=== PATIENT | female | born 1945 | race Two or more races ===

== ENCOUNTER 2020-09-23 20:08 | Inpatient (IN) | payer MEDICARE, OTHER ==
[~2020-09-23] VITALS: Ht 152.4 cm; Wt 43.5 kg
[2020-09-23] MEDS ORDERED: NEPHROVITE1 TAB ORAL (20:19)
[2020-09-23] MEDS ORDERED: CITALOPRAM HBR20 M1 ORAL (20:19)
[2020-09-23] MEDS ORDERED: ASCORBIC ACID500 MG ORAL (20:19)
[2020-09-23] MEDS ORDERED: GABAPENTIN100 MG ORAL (20:19)
[2020-09-23] MEDS ORDERED: SENSIPAR30 MG ORAL (20:19)
[2020-09-23] MEDS ORDERED: ATORVASTATIN CA40 MG ORAL (20:19)
[2020-09-23] MEDS ORDERED: PANTOPRAZOLE SO40 MG ORAL (20:19)
[2020-09-23] MEDS ORDERED: RENVELA2.4 GM ORAL (20:19)
[2020-09-23] MEDS ORDERED: LANTUS SOL100 UNIT/1 SUBQ (20:19)
--- NOTE | 2020-09-23 20:25 | NUR ---
ED Nurse Note: Recieved pt BIBA from SNF with c/o AMS, pt is in bed eyes closed, non-verbal and responds to painful stimuli only, pt is dialysis pt and had full treatment today, shunt in upper left arm intact and patent, pt immediately placed on cardiac monitoring, has patent IV line, labs drawn, will continue to closely monitor and resume care as ordered.
--- NOTE | 2020-09-23 20:46 | Emergency Room Report ---
History of Present Illness General Chief Complaint: Altered Mental Status Source: Medical Record Present Illness HPI 75-year-old female history of end-stage renal disease on dialysis Wednesday, congestive heart failure, here with altered mental status. The patient is normally alert and oriented x2 at her baseline but according group home today after dialysis. More lethargic and confused and is now nonverbal. She is unable to participate in review systems secondary to her altered mental status. 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 COVID-19 Screening: Negative COVID-19 COVID-19 Testing Source: [facility] Patient History Now: No Nursing Documentation-PMH Hx Cardiac Problems: Yes - dialysis MWF, cardiomegaly, cardiomyopathy, heart failure, ESRD Hx Hypertension: Yes - hyperlipidemia, hypercalcemia Hx Diabetes: Yes Hx Gastrointestinal Problems: Yes - GERD, dysphagia History Of Psychiatric Problem: Yes - depression Review of Systems All Other Systems: negative except mentioned in HPI Physical Exam Vital Signs Date Time Temp Pulse Resp B/P (MAP) Pulse Ox O2 Delivery O2 Flow Rate FiO2 09/23/20 20:08 97.2 101 22 137/60 (85) 98 Nasal Cannula 2.0 Sp02 EP Interpretation: reviewed, normal General Appearance: non-toxic, other - Appears lethargic, altered. Eyes are open and she is tracking objects but is nonverbal Head: normocephalic, atraumatic Eyes: bilateral eye normal inspection, bilateral eye PERRL ENT: hearing grossly normal, normal pharynx, no angioedema, normal voice Neck: full range of motion, supple/symm/no masses Respiratory: chest non-tender, lungs clear, normal breath sounds, speaking full sentences Cardiovascular #1: regular rate, rhythm, no edema Cardiovascular #2: 2+ carotid (R), 2+ carotid (L), 2+ radial (R), 2+ radial (L), 2+ dorsalis pedis (R), 2+ dorsalis pedis (L) Gastrointestinal: normal bowel sounds, non tender, soft, non-distended, no guarding, no rebound Rectal: deferred Genitourinary: normal inspection, no CVA tenderness Musculoskeletal: back normal, normal range of motion, gait/station normal, non- tender Neurologic: other - She is awake but nonverbal Psychiatric: judgement/insight normal, memory normal, mood/affect normal, no suicidal/homicidal ideation Reflexes: 3+ bicep (R), 3+ bicep (L), 3+ tricep (R), 3+ tricep (L), 3+ knee (R), 3+ knee (L) Lymphatic: no adenopathy Medical Decision Making Diagnostic Impression: Primary Impression: Altered mental status Additional Impressions: Pneumonia ESRD (end stage renal disease) ER Course CT head: No acute intracranial process EKG: NSR, no ischemia, intervals WNL. No ectopy Rhythm strip: patient monitored for arrhythmias - no malignant dysrhythmias, runs of PVCs, nor pauses noted Chest x-ray: He is a consolidation in the right lower lobe. Mild cardiomegaly. No pulmonary vascular congestion. No effusions. No bony abnormalities. No free air under the diaphragm Laboratory Tests Test 09/23/20 20:25 White Blood Count 12.7 K/UL (4.8-10.8) H Red Blood Count 2.62 M/UL (4.20-5.40) L Hemoglobin 8.6 G/DL (12.0-16.0) L Hematocrit 27.6 % (37.0-47.0) L Mean Corpuscular Volume 105 FL (80-99) H Mean Corpuscular Hemoglobin 33.0 PG (27.0-31.0) H Mean Corpuscular Hemoglobin Concent 31.3 G/DL (32.0-36.0) L Red Cell Distribution Width 17.6 % (11.6-14.8) H Platelet Count 265 K/UL (150-450) Mean Platelet Volume 6.4 FL (6.5-10.1) L Neutrophils (%) (Auto) 75.6 % (45.0-75.0) H Lymphocytes (%) (Auto) 6.4 % (20.0-45.0) L Monocytes (%) (Auto) 16.6 % (1.0-10.0) H Eosinophils (%) (Auto) 0.2 % (0.0-3.0) Basophils (%) (Auto) 1.3 % (0.0-2.0) Sodium Level 140 MMOL/L (136-145) Potassium Level 3.8 MMOL/L (3.5-5.1) Chloride Level 103 MMOL/L (98-107) Carbon Dioxide Level 31 MMOL/L (21-32) Anion Gap 6 mmol/L (5-15) Blood Urea Nitrogen 25 mg/dL (7-18) H Creatinine 3.5 MG/DL (0.55-1.30) H Estimated Glomerular Filtration Rate 12.7 mL/min (>60) Glucose Level 189 MG/DL (74-106) H Lactic Acid Level 1.60 mmol/L (0.4-2.0) Calcium Level 7.7 MG/DL (8.5-10.1) L Magnesium Level 2.1 MG/DL (1.8-2.4) Total Bilirubin 0.5 MG/DL (0.2-1.0) Aspartate Amino Transferase (AST) 16 U/L (15-37) Alanine Aminotransferase (ALT) 13 U/L (12-78) Alkaline Phosphatase 153 U/L (46-116) H Total Creatine Kinase 28 U/L (26-308) Creatine Kinase MB 1.7 NG/ML (0.0-3.6) Creatine Kinase MB Relative Index 6.0 Troponin I 0.042 ng/mL (0.000-0.056) Total Protein 6.7 G/DL (6.4-8.2) Albumin 2.3 G/DL (3.4-5.0) L Globulin 4.4 g/dL Albumin/Globulin Ratio 0.5 (1.0-2.7) L 75-year-old female here with altered mental status. The patient was nonverbal and appeared cachectic and fatigued in the emergency department. She was awake and tracking objects but was nonverbal. Nursing reports she says that the patient is normally has alert orientation x2. Patient was ANO x0. She had elevated white blood cell count of greater than 12. Troponin within normal limits. CBC and CMP was largely otherwise unremarkable and only showed the patient's baseline end-stage renal disease. CT head was unremarkable. Chest x- ray showed evidence of right lower lobe pneumonia. She received vancomycin and Zosyn for treatment of healthcare acquired pneumonia. Remained hemodynamically stable throughout her stay in the emergency department. Admitted to telemetry. Last Vital Signs Date Time Temp Pulse Resp B/P (MAP) Pulse Ox O2 Delivery O2 Flow Rate FiO2 09/23/20 20:08 97.2 101 22 137/60 (85) 98 Nasal Cannula 2.0 Alex Ferris M.D. Sep 23, 2020 20:46
[2020-09-23 20:56] LABS: BASOPHILS % (AUTO) 1.3 % (0.0-2.0); EOSINOPHILS % (AUTO) 0.2 % (0.0-3.0); HEMATOCRIT 27.6 % (37.0-47.0); HEMOGLOBIN 8.6 G/DL (12.0-16.0); LYMPHOCYTES % (AUTO) 6.4 % (20.0-45.0); MEAN CORPUSCULAR VOLUME 105 FL (80-99); MONOCYTES % (AUTO) 16.6 % (1.0-10.0); NEUTROPHILS % (AUTO) 75.6 % (45.0-75.0); PLATELET COUNT 265 K/UL (150-450); RED BLOOD COUNT 2.62 M/UL (4.20-5.40); RED CELL DISTRIBUTION WIDTH 17.6 % (11.6-14.8); WHITE BLOOD COUNT 12.7 K/UL (4.8-10.8)
[2020-09-23 21:00] VITALS: BP 148/52
[2020-09-23 21:17] LABS: CALCIUM 7.7 MG/DL (8.5-10.1); CREATININE 3.5 MG/DL (0.55-1.30); POTASSIUM 3.8 MMOL/L (3.5-5.1)
--- NOTE | 2020-09-23 21:17 | Diagnostic Imaging Report ---
EXAM: CT Head Without Intravenous Contrast CLINICAL HISTORY: AMS TECHNIQUE: Axial computed tomography images of the head/brain without intravenous contrast. CTDI is 53.4 mGy and DLP is 1018.8 mGy-cm. One or more of the following dose reduction techniques were used: automated exposure control, adjustment of the mA and/or kV according to patient size, use of iterative reconstruction technique. COMPARISON: No relevant prior studies available. FINDINGS: Brain: No hemorrhage. No edema. Ventricles: No ventriculomegaly. Bones/joints: No acute fracture. Soft tissues: Unremarkable. Cataract surgery Sinuses: No acute sinusitis. Mastoid air cells: Right mastoid opacifications. Debris in the external auditory canals. IMPRESSION: No acute intracranial process.
[2020-09-23 21:32] LABS: ALBUMIN 2.3 G/DL (3.4-5.0); ALBUMIN/GLOBULIN RATIO 0.5 (1.0-2.7); BILIRUBIN,TOTAL 0.5 MG/DL (0.2-1.0); CKMB 1.7 NG/ML (0.0-3.6)
--- NOTE | 2020-09-23 22:00 | NUR ---
ED Nurse Note: Pt continues to rest quietly, pt is diapered and arrived with very large loose stool and has had 3 large loose, watery stools since, pt cleaned and given complete linen change, v/s stable, no sob or labored breathing, recieving more response by eyes opening and pt mumbling words in burkinan, MD aware, will continue to closely monitor.
[2020-09-23] MEDS ORDERED: Vancomycin 1 GM in NS 275 ML IVPB ONE (22:30)
[2020-09-23] MEDS ORDERED: Piperacillin/Tazobactam 3.375 GM in NS 110 ML IVPB ONE (22:30)
[2020-09-24] VITALS (10 sets, daily range): BP systolic 129–154; BP diastolic 52–76
--- NOTE | 2020-09-24 00:05 | NUR ---
ED Nurse Note: Pt had loose, foul odor stool again, specimen sent to lb, pt also has elevated temp, informed meds given as ordered, pt to be admitted, daughter at bedside and aware, all swabs collected and ssent, also shown to vesicle like lesions on pt abdomen, will continue to monitor and prepaer for admission.
[2020-09-24] MEDS ORDERED: Acetaminophen 650 MG SUPP RECTAL ONE (00:45)
--- NOTE | 2020-09-24 01:30 | NUR ---
ED Nurse Note: Assumed care of pt at this time. She is resting in bed. Linen change done by welding robot operator and tech. Patient is clean/dry. She is breathing normal and unlabored at this time on 2L oxygen via NC. handle sewer spoke with patient's family and they are aware of care plan at this time. Pt connected to stenciling machine tender; will continue to monitor pt status. Vital signs are stable.
--- NOTE | 2020-09-24 01:35 | Emergency Room Report ---
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 COVID-19 Screening: Negative COVID-19 COVID-19 Testing Source: [facility] Patient History Now: No Nursing Documentation-PMH Hx Cardiac Problems: Yes - dialysis MWF, cardiomegaly, cardiomyopathy, heart failure, ESRD Hx Hypertension: Yes - hyperlipidemia, hypercalcemia Hx Diabetes: Yes Hx Gastrointestinal Problems: Yes - GERD, dysphagia History Of Psychiatric Problem: Yes - depression Physical Exam Vital Signs Date Time Temp Pulse Resp B/P (MAP) Pulse Ox O2 Delivery O2 Flow Rate FiO2 09/23/20 20:08 97.2 101 22 137/60 (85) 98 Nasal Cannula 2.0 Medical Decision Making Diagnostic Impression: Primary Impression: Altered mental status Additional Impressions: ESRD (end stage renal disease) Pneumonia Diarrhea ER Course Assumed care of the patient from the previous provider at approximately 0130. Please refer to initial note for full history and physical exam. Briefly, 75-year-old female history of ESRD on dialysis presenting for altered mental status and right lower lobe pneumonia. Mentation improving. Admitted to Dr. Swanson by the previous ER provider. Patient having multiple episodes of watery diarrhea. C. difficile culture sent. We will place on contact precautions. She was found to be febrile and Tylenol was given. She has already received antibiotics. Last Vital Signs Date Time Temp Pulse Resp B/P (MAP) Pulse Ox O2 Delivery O2 Flow Rate FiO2 09/24/20 00:15 101.5 89 17 144/58 99 Nasal Cannula 2.0 Disposition: ADMITTED INPATIENT Condition: Serious Referrals: NON PHYSICIAN (PCP) Masoud Goodrich MD Sep 24, 2020 01:35
--- NOTE | 2020-09-24 02:05 | NUR ---
ED Nurse Note: Reassessed temperature at this time. Current temp is 99.6F.
--- NOTE | 2020-09-24 02:30 | NUR ---
ED Nurse Note: messaged dr. aguillon for admitting orders due to patient being boarded here in the emergency room.
--- NOTE | 2020-09-24 03:30 | NUR ---
ED Nurse Note: Pt is sleeping soundly at this time. Breathing is normal and unlabored. No change in condition. VSS.
--- NOTE | 2020-09-24 04:16 | NUR ---
ED Nurse Note: messaged dr. aguillon 2nd time for admitting orders .
--- NOTE | 2020-09-24 05:40 | NUR ---
ED Nurse Note: Patient had loose bowel movement. She was cleaned and her linen changed. Skin is now clean/dry/intact. Pt family member is bedside. Pt is in no acute distress, breathing is normal and unlabored. Patient is awake and alert. VSS.
--- NOTE | 2020-09-24 07:10 | NUR ---
ED Nurse Note: Report given to Gia ESTEVEZ. Plan of care endorsed. Pt in stable condition.
--- NOTE | 2020-09-24 08:15 | NUR ---
ED Nurse Note: Pt had 1 BM, loose stool, pt was cleaned and diaper changed.
--- NOTE | 2020-09-24 08:26 | NUR ---
ED Nurse Note: Pt on bed, awake and alert x 2, daughter at bedside. Pt warm to touch; rechecked temp with 100.1F; tylenol 650mg TAB given. Pt's VSS, breathing even and unlabored.
--- NOTE | 2020-09-24 08:29 | NUR ---
ED Nurse Note: Report given to ZENAIDA Zavala in Telemetry Unit for transfer of care.
--- NOTE | 2020-09-24 08:35 | NUR ---
ED Nurse Note: Pt was transferred to Telemetry Unit under the care of Dr. Swanson. report given to Cecy ESTEVEZ in Tele Unit. Pt was transferred on stable condition, no belongings updated on paper list; family aware of pt transfer.
--- NOTE | 2020-09-24 08:45 | NUR ---
NURSE NOTES: Patient was admitted to [facility] -220-1 via striker bed, patient on 2L of oxygen via nasal cannula, Vitals: BP: 137/60, spO2: 100%, pulse rate: 86, temp: 97.7. Patient alert and oriented x2, responsive to verbal and tactile stimuli, able to follow commands, noted sacral pressure ulcer will take pictures later. Patient has c. diff and will contact Dr. Swanson shortly.
--- NOTE | 2020-09-24 08:48 | NUR ---
NURSE NOTES: Notified Dr. Swanson regarding admission orders and awaiting response/callback.
[2020-09-24] MEDS: Renvela 2400 mg pkt ORAL SCH ×2 (12:58→17:20)
[2020-09-24] MEDS: Vancomycin oral 125mg/2.5ml ORAL SCH ×3 (13:02→21:31)
[2020-09-24] MEDS: cefTRIAXone 1 GM in D5W 55 ML IVPB SCH (13:03)
--- NOTE | 2020-09-24 13:30 | Consultation ---
DATE OF CONSULTATION: 09/24/2020 INFECTIOUS DISEASES CONSULTATION CONSULTING PHYSICIAN: Erika Stiles MD. REFERRING PHYSICIAN: Cesar Swanson MD. REASON FOR CONSULTATION: Pneumonia and C. difficile colitis. HISTORY OF PRESENTING ILLNESS: This is a 75-year-old lady with history of diabetes, hypertension, hyperlipidemia, GERD, depression, cardiomyopathy, congestive heart failure, renal failure on dialysis who comes in with altered mental status. She was found to have pneumonia and C. difficile colitis. An Infectious Diseases consultation has been obtained for antibiotics. PAST MEDICAL HISTORY: 1. History of diabetes. 2. Hypertension. 3. Hyperlipidemia. 4. Renal failure on dialysis. 5. Cardiomyopathy. 6. Congestive heart failure. SOCIAL HISTORY: Unknown. FAMILY HISTORY: Unknown. REVIEW OF SYSTEMS: Unable to obtain currently. MEDICATIONS: As an inpatient, she is on vitamin , folic acid, Protonix, atorvastatin, ascorbic acid, Renvela, gabapentin, p.o. vancomycin, Tylenol. ALLERGIES: No known drug allergies. PHYSICAL EXAMINATION: VITAL SIGNS: Temperature 97.7, T-max of 101.5, pulse of 85, respiratory rate 20, blood pressure 137/60, O2 saturation of 100% on 2 liters of nasal cannula. HEENT: Pupils equally reactive to light and accommodation. Mouth appears clean without thrush. NECK: Supple. No adenopathy. No JVD. CARDIOVASCULAR: Regular rate and rhythm. No murmurs. LUNGS: Clear to auscultation bilaterally. No crackles. No wheezes. ABDOMEN: Soft and nontender. No organomegaly. EXTREMITIES: No cyanosis, no clubbing, no edema. LABORATORY AND DIAGNOSTIC DATA: White count 12.7, hemoglobin 8.6, hematocrit 27.6, MCV 105, platelet count of 265 with neutrophils of 75%. Sodium 140, potassium 3.8, chloride 103, bicarb 31, BUN 25, creatinine 3.5, glucose 189, calcium 7.7, magnesium 2.1. Total bilirubin 0.5, AST 16, ALT 13, alkaline phosphatase 153. CK of 28, CK-MB 1.7. Troponin 0.04. Total protein 6.7, albumin 2.3. Stool for C. difficile colitis is positive. COVID-[address] head showing no acute intracranial process. Chest x-ray showing consolidation in the right lower lobe. ASSESSMENT: This is a 75-year-old lady with history of diabetes, hypertension, renal failure on dialysis, cardiomyopathy, congestive heart failure who comes in with altered mental status and is found to have. 1. Pneumonia, she is COVID-19 negative. 2. Diabetes. 3. Hypertension. 4. Renal failure on dialysis. 5. C. difficile colitis. PLAN: 1. Continue p.o. vancomycin. 2. We will start the patient on ceftriaxone. 3. We will followup cultures. 4. Continue isolation. I would like to thank, Dr. Swanson, for this consultation. Erika Stiles M.D. DR: Angelo JOB#: [id number] CC: Alphonse Swanson M.D.; Fax#: [phone]
--- NOTE | 2020-09-24 15:10 | NUR ---
CASE MANAGEMENT:REVIEW 75 YR OLD FEMALE BIBA FROM [facility] CC: AMS PMH: ESRD ON HD SI:PNA. DIARRHEA 101.5 101 22 137/60 98% ON 2L/NC WBC+12.7 H/H-8.6/27.6 IS: IV VANCOMYCIN IV ZOSYN TYLENOL [place] CHEST XRAY CT HEAD : TO TELEMETRY
[2020-09-24] MEDS: Ascorbic Acid 500mg tab ORAL SCH (17:20)
--- NOTE | 2020-09-24 19:00 | NUR ---
NURSE HAND-OFF REPORT: Important Events on Shift: C. Diff Patient Status: stable condition, full code Diet: renal diet, mechanical soft Pending Orders: [] Pending Results/Labs:[] Pending MD notification:[] Latest Vital Signs: Temperature 98.8 , Pulse 82 , B/P 135 /76 , Respiratory Rate 18 , O2 SAT 100 , Nasal Cannula, O2 Flow Rate 2.0 . Vital Sign Comment: [] EKG Rhythm: Sinus Rhythm Rhythm change?: N MD Notified?: - MD Response: Latest Ness Fall Score: 60 Fall Risk: High Risk Safety Measures: Call light Within Reach, Bed Alarm Zone 2, Side Rails Side Rails x2, Bed position Low and Locked. Fall Precautions: Yellow Socks Yellow Gown Door Sign Patient Fall Education Report given to ZENAIDA Gonzalez.
--- NOTE | 2020-09-24 20:30 | History and Physical Report ---
DATE OF ADMISSION: 09/23/2020 HISTORY OF PRESENT ILLNESS: This is a 75-year-old female who came with fluid overload, shortness of breath, diarrhea, altered mental status. The patient is now more awake and alert. PAST MEDICAL HISTORY: Significant for end-stage renal disease, hypertension, neuropathy. MEDICATIONS: She is taking Lipitor, calcium, gabapentin, insulin, Lantus, PPI, , vitamin D. PHYSICAL EXAMINATION: GENERAL: This is an elderly female, currently in bed. VITAL SIGNS: Blood pressure is 137/60, pulse 85, respirations 20, temperature is 97.7 HEENT: AT/NC. NECK: Mild JVD. CHEST: Bilateral decreased breath sounds. CARDIOVASCULAR: Irregular rhythm. No gallop. No murmur. ABDOMEN: Soft. Positive bowel sounds. EXTREMITIES: CCE. NEUROLOGIC: The patient is in generalized weakness. LABORATORY DATA: White counts are 13,000, hemoglobin 8.6, hematocrit 27, platelets are normal. Chemistry panel, BUN 25, creatinine 3.5, troponin 0.4. Albumin is 3.2. IMAGING: Head CT has no acute intracranial process. ASSESSMENT: 1. Altered mental status. 2. Fluid overload. 3. CHF. 4. ALOC. PLAN: We will admit on tele bed. Consider cardiology consult. Also consider Nephrology consult and continue current medical treatment. The patient is more awake now. Continue Lipitor and PPI. Continue vancomycin, ceftriaxone. Consider pulmonary, cardiology, and nephrology consult. Alphonse Swanson M.D. DR: SARAHY JOB#: [id number] CC:
[2020-09-24] MEDS ORDERED: Atorvastatin 20mg tab ORAL SCH (21:00)
[2020-09-25] VITALS: BP 121/55
--- NOTE | 2020-09-25 01:00 | Consultation ---
DATE OF CONSULTATION: 09/24/2020 CONSULTING PHYSICIAN: Lona Tarango MD HISTORY OF PRESENT ILLNESS: This is a 75-year-old female with a history of end-stage renal disease, hypertension, neuropathy who has been admitted to the hospital due to altered mental status. Patient also has a history of anxiety disorder and depression, on Celexa. Patient dialysis, renal failure, and heart failure. Patient is confused, episodes of anxiety, more confused than baseline. In addition, the patient was diagnosed with pneumonia and has been having waxing and waning consciousness, memory impairment. PAST PSYCHIATRIC HISTORY: Depression and anxiety, on Celexa , dementia. PAST MEDICAL HISTORY: Diabetes, hypertension, hyperlipidemia, renal failure on dialysis, cardiomyopathy, congestive heart failure. ALLERGIES: No known drug allergies. SUBSTANCE ABUSE HISTORY: No known history of illicit drug use or alcohol. MENTAL STATUS EXAMINATION: Patient is alert, oriented times self, place. Mood is agitated. Affect is flat. Thought process, there is a paucity of thought content. Thought content, no suicidal or homicidal ideation. Cognition is impaired. Insight and judgment is impaired. ASSESSMENT: [place] I Dementia. Anxiety disorder. Rule out acute metabolic encephalopathy. [place] II Deferred. [place] III As above. [place] IV Low. [place] V 20. PLAN: 1. Celexa 20 mg. 2. Haldol IM p.r.n. for agitation. 3. Discussed with the nurse. Lona Tarango M.D. DR: TAMMI JOB#: [id number] CC:
[2020-09-25 04:00] VITALS: BP 120/53
--- NOTE | 2020-09-25 04:10 | Cardiology Report ---
APPROVED REPORT EKG Measurement Heart [id number] <Conclusion> Normal sinus rhythm Possible Left atrial enlargement Nonspecific T wave abnormality Abnormal ECG
[2020-09-25 07:20] LABS: BASOPHILS % (AUTO) 0.5 % (0.0-2.0); EOSINOPHILS % (AUTO) 0.8 % (0.0-3.0); HEMOGLOBIN 8.8 G/DL (12.0-16.0); LYMPHOCYTES % (AUTO) 7.8 % (20.0-45.0); MEAN CORPUSCULAR VOLUME 108 FL (80-99); MONOCYTES % (AUTO) 11.9 % (1.0-10.0); NEUTROPHILS % (AUTO) 79.1 % (45.0-75.0); PLATELET COUNT 298 K/UL (150-450); RED BLOOD COUNT 2.69 M/UL (4.20-5.40); RED CELL DISTRIBUTION WIDTH 17.8 % (11.6-14.8)
--- NOTE | 2020-09-25 07:20 | NUR ---
NURSE NOTES: Received report from Noel ESTEVEZ. Pt is stable, AOx2, and resting in bed semifowlers. Breathing is unlabored and even on 2LPM NC. Pt is on strict contact isolation for CDIF. RICHARD chest portacath and L arm shunt noted. Pt R hand 22g running NS at 75cc, asymptomatic and intact. Sacral redness noted.
--- NOTE | 2020-09-25 07:21 | NUR ---
NURSE HAND-OFF REPORT: Important Events on Shift:[None] Patient Status: [Stable] Diet: [Renal Mech Soft Ground] Pending Orders: [] Pending Results/Labs:[] Pending MD notification:[] Latest Vital Signs: Temperature 97.5 , Pulse 77 , B/P 120 /53 , Respiratory Rate 30 , O2 SAT 100 , Nasal Cannula, O2 Flow Rate 2.0 . Vital Sign Comment: [] EKG Rhythm: Sinus Rhythm Rhythm change?: N MD Notified?: - MD Response: Latest Ness Fall Score: 60 Fall Risk: High Risk Safety Measures: Call light Within Reach, Bed Alarm Zone 1, Side Rails Side Rails x3, Bed position Low and Locked. Fall Precautions: Yellow Socks Yellow Gown Door Sign Patient Fall Education Report given to [Becky ESTEVEZ].
[2020-09-25 08:00] VITALS: BP 108/46
--- NOTE | 2020-09-25 08:00 | NUR ---
NURSE NOTES: Pt Chase leon noted. Per Pt, she says they use the VINCE AV shunt for HD.
[2020-09-25] MEDS: NovoLOG Insulin Flexpen SUBQ SCH ×2 (09:00→17:36)
--- NOTE | 2020-09-25 09:02 | General Progress Note ---
Subjective Allergies: Coded Allergies: No Known Allergies (Unverified , 09/23/20) Subjective looks dry sob better isolation Objective Last 24 Hour Vital Signs Date Time Temp Pulse Resp B/P (MAP) Pulse Ox O2 Delivery O2 Flow Rate FiO2 09/25/20 04:00 97.5 77 30 120/53 (75) 100 09/25/20 04:00 78 09/25/20 00:00 99.3 84 24 121/55 (77) 100 09/25/20 00:00 84 09/24/20 21:00 Nasal Cannula 2.0 09/24/20 20:00 97.9 86 20 154/63 (93) 99 09/24/20 20:00 86 09/24/20 18:00 98.8 82 18 135/76 (95) 100 09/24/20 16:00 82 09/24/20 16:00 98.8 82 18 135/76 (95) 100 09/24/20 12:00 78 09/24/20 12:00 98.1 78 18 138/58 (84) 100 09/24/20 10:34 Nasal Cannula 2.0 09/24/20 09:00 85 09/24/20 09:00 97.7 85 20 137/60 (85) 100 Intake and Output 09/24/20 09/25/20 19:00 07:00 Intake Total 860 ml Output Total 1 ml Balance 860 ml -1 ml Intake Oral 860 ml Output Stool Total 1 ml # Voids 1 1 # Bowel Movements 4 3 Laboratory Tests 09/24/20 21:27: POC Whole Blood Glucose 128H 09/25/20 07:06: White Blood Count 13.0H, Red Blood Count 2.69L, Hemoglobin 8.8L, Hematocrit 29.0L, Mean Corpuscular Volume 108H, Mean Corpuscular Hemoglobin 32.6H, Mean Corpuscular Hemoglobin Concent 30.2L, Red Cell Distribution Width 17.8H, Platelet Count 298, Mean Platelet Volume 5.5L, Neutrophils (%) (Auto) 79.1H, Lymphocytes (%) (Auto) 7.8L, Monocytes (%) (Auto) 11.9H, Eosinophils (%) (Auto) 0.8, Basophils (%) (Auto) 0.5 Height (Feet): 5 Height (Inches): 0.00 Weight (Pounds): 96 General Appearance: alert, thin EENT: PERRL/EOMI Neck: supple Cardiovascular: regular rhythm Respiratory/Chest: crackles/rales Abdomen: non tender, soft Extremities: non-tender Edema: trace edema Skin: warm/dry Assessment/Plan Assessment/Plan: 1 chf combined acute 2 fluid overlad 3 htn 4 c diff colitis 5 faiure of thrive 6 severe malnutrition contact isolation cardio on case consider pulmo and id consult Cesar Swanson MD Sep 25, 2020 09:02
[2020-09-25] MEDS: Nephrovite tab (Rena-Vite) ORAL SCH (09:33)
[2020-09-25] MEDS: Citalopram Hydrobromide 10mg Tab ORAL SCH (09:33)
[2020-09-25] MEDS: Vancomycin oral 125mg/2.5ml ORAL SCH ×4 (09:33→20:17)
[2020-09-25] MEDS: Renvela 2400 mg pkt ORAL SCH ×2 (09:34→13:55)
[2020-09-25] MEDS: Ascorbic Acid 500mg tab ORAL SCH ×2 (09:34→17:35)
--- NOTE | 2020-09-25 09:50 | NUR ---
NURSE NOTES: Pt off tele for CT of head. Pt is stable on 2LPM NC. no s/s of distress
--- NOTE | 2020-09-25 09:51 | Diagnostic Imaging Report ---
Indication: Leg pain Technique: Grayscale and duplex images of the bilateral lower extremity veins Comparison: Findings: Bilaterally, grayscale and duplex images demonstrate no evidence of intraluminal thrombus. Normal phasic Doppler waveforms, demonstrating normal augmentation response and no evidence of valvular insufficiency. Greater saphenous vein(s) and tibial veins are patent. Normal compressibility. Impression: Negative for evidence of lower extremity deep venous thrombosis bilaterally
[2020-09-25 10:39] LABS: ANION GAP 7 mmol/L (5-15); BLOOD UREA NITROGEN 43 mg/dL (7-18); CALCIUM 7.2 MG/DL (8.5-10.1); CARBON DIOXIDE 29 MMOL/L (21-32); CHLORIDE 104 MMOL/L (98-107); CREATININE 4.8 MG/DL (0.55-1.30); POTASSIUM 4.4 MMOL/L (3.5-5.1); SODIUM 140 MMOL/L (136-145)
--- NOTE | 2020-09-25 10:42 | Consultation ---
Consult Note Consult Note I am asked to evaluate the patient at the request of Dr. Swanson for dialysis management Patient has end-stage renal disease and on hemodialysis Wednesday Patient seen in the room, discussed with ZENAIDA Fernandez Patient , unable to take history. Records reviewed Labs reviewed Emergency Room Note: Chief Complaint: Altered Mental Status Allergies: No Known Allergies (Unverified , 09/23/20) COVID-19 Screening Contact w/high risk pt: No Experienced COVID-19 symptoms?: No COVID-19 Testing performed COMMUNICATION CONSULTANT: Yes - september 18, 2020 COVID-19 Screening: Negative COVID-19 COVID-19 Testing Source: [facility] Past History Hx Cardiac Problems: Yes - dialysis MWF, cardiomegaly, cardiomyopathy, heart fa ilure, ESRD Hx Hypertension: Yes - hyperlipidemia, hypercalcemia Hx Diabetes: Yes Hx Gastrointestinal Problems: Yes - GERD, dysphagia History Of Psychiatric Problem: Yes - depression Vital Signs Date Time Temp Pulse Resp B/P (MAP) Pulse Ox O2 Delivery O2 Flow Rate FiO2 09/23/20 20:08 97.2 101 22 137/60 (85) 98 Nasal Cannula 2.0 PHYSICAL EXAMINATION: VITAL SIGNS: Temperature 97.7, T-max of 101.5, pulse of 85, respiratory rate 20, blood pressure 137/60, O2 saturation of 100% on 2 liters of nasal cannula. HEENT: Pupils equally reactive to light and accommodation. Mouth appears clean without thrush. NECK: Supple. No adenopathy. No JVD. CARDIOVASCULAR: Regular rate and rhythm. No murmurs. LUNGS: Clear to auscultation bilaterally. No crackles. No wheezes. ABDOMEN: Soft and nontender. No organomegaly. EXTREMITIES: No cyanosis, no clubbing, no edema. LABORATORY AND DIAGNOSTIC DATA: White count 12.7, hemoglobin 8.6, hematocrit 27.6, MCV 105, platelet count of 265 with neutrophils of 75%. Sodium 140, potassium 3.8, chloride 103, bicarb 31, BUN 25, creatinine 3.5, glucose 189, calcium 7.7, magnesium 2.1. Total bilirubin 0.5, AST 16, ALT 13, alkaline phosphatase 153. CK of 28, CK-MB 1.7. Troponin 0.04. Total protein 6.7, albumin 2.3. Stool for C. difficile colitis is positive. COVID-[address] head showing no acute intracranial process. Chest x-ray showing consolidation in the right lower lobe. . Assessment/Plan End-stage renal disease on hemodialysis 3 times a week Patient has a left upper chest permacath for dialysis access Patient has C. difficile colitis and watery diarrhea History of hypertension History of diabetes History of hyperlipemia History of cardiomyopathy, congestive heart failure Suggestions: Check labs today Based on the lab results arrange for the dialysis treatment Continue per ID management CT results: Multiple bilateral pulmonary nodules, suspicious for metastatic malignancy. Cardiomegaly. Hazy upper lobe parenchymal opacities are probably secondary to mild pulmonary edema Bilateral pleural effusions. Resultant basilar compressive atelectatic changes Narrowing of the proximal trachea, likely due to combination of compression by the enlarged thyroid and laxity of the posterior ligament Thyromegaly without discrete mass, likely goiter Markedly distended stomach, etiology not demonstrated Left chest tunneled dialysis catheter Atrophic kidneys, consistent with chronic renal disease Evidence of mild anasarca Chris Puckett MD Sep 25, 2020 10:42
[2020-09-25 10:51] LABS: ALANINE AMINOTRANSFERASE < 6 U/L (12-78); ALBUMIN 1.9 G/DL (3.4-5.0); ALBUMIN/GLOBULIN RATIO 0.5 (1.0-2.7); ALKALINE PHOSPHATASE 114 U/L (46-116); ASPARTATE AMINO TRANSFERASE 12 U/L (15-37); BILIRUBIN,TOTAL 0.4 MG/DL (0.2-1.0); PHOSPHORUS 2.9 MG/DL (2.5-4.9)
--- NOTE | 2020-09-25 11:01 | Infectious Diseases Prog Note ---
Assessment/Plan Assessment/Plan antibiotics : ceftriaxone, po vancomycin A 1. Pneumonia COVID-19 negative. 2. Diabetes. 3. Hypertension. 4. Renal failure on dialysis. 5. C. difficile colitis P 1. continue ceftriaxone 4 more days 2. continue po vancomycin 12 more days 3. will follow up cultures Subjective Constitutional: Denies: fever, chills Respiratory: Denies: shortness of breath, dry cough Gastrointestinal/Abdominal: Reports: nausea, diarrhea; Denies: vomiting Musculoskeletal: Reports: pain - abdominal Allergies: Coded Allergies: No Known Allergies (Unverified , 09/23/20) Objective Last 24 Hour Vital Signs Date Time Temp Pulse Resp B/P (MAP) Pulse Ox O2 Delivery O2 Flow Rate FiO2 09/25/20 09:00 Nasal Cannula 2.0 09/25/20 08:00 97.9 81 17 108/46 (66) 100 09/25/20 08:00 73 09/25/20 04:00 97.5 77 30 120/53 (75) 100 09/25/20 04:00 78 09/25/20 00:00 99.3 84 24 121/55 (77) 100 09/25/20 00:00 84 09/24/20 21:00 Nasal Cannula 2.0 09/24/20 20:00 97.9 86 20 154/63 (93) 99 09/24/20 20:00 86 09/24/20 18:00 98.8 82 18 135/76 (95) 100 09/24/20 16:00 82 09/24/20 16:00 98.8 82 18 135/76 (95) 100 09/24/20 12:00 78 09/24/20 12:00 98.1 78 18 138/58 (84) 100 Height (Feet): 5 Height (Inches): 0.00 Weight (Pounds): 96 Respiratory/Chest: lungs clear Cardiovascular: normal rate, regular rhythm, no gallop/murmur Abdomen: soft, non tender Extremities: no edema Microbiology Date/Time Source Procedure Growth Status 09/24/20 05:30 Rectal Mucosa Received 09/24/20 00:20 Nasopharynx SARS-CoV-2 RdRp Gene Assay - Final Complete 09/24/20 00:05 Stool Clostridium difficile Toxin Assay - Final Complete Laboratory Tests Test 09/24/20 21:27 09/25/20 07:06 09/25/20 09:31 POC Whole Blood Glucose 128 MG/DL (74-106) H 121 MG/DL (74-106) H White Blood Count 13.0 K/UL (4.8-10.8) H Red Blood Count 2.69 M/UL (4.20-5.40) L Hemoglobin 8.8 G/DL (12.0-16.0) L Hematocrit 29.0 % (37.0-47.0) L Mean Corpuscular Volume 108 FL (80-99) H Mean Corpuscular Hemoglobin 32.6 PG (27.0-31.0) H Mean Corpuscular Hemoglobin Concent 30.2 G/DL (32.0-36.0) L Red Cell Distribution Width 17.8 % (11.6-14.8) H Platelet Count 298 K/UL (150-450) Mean Platelet Volume 5.5 FL (6.5-10.1) L Neutrophils (%) (Auto) 79.1 % (45.0-75.0) H Lymphocytes (%) (Auto) 7.8 % (20.0-45.0) L Monocytes (%) (Auto) 11.9 % (1.0-10.0) H Eosinophils (%) (Auto) 0.8 % (0.0-3.0) Basophils (%) (Auto) 0.5 % (0.0-2.0) Sodium Level 140 MMOL/L (136-145) Potassium Level 4.4 MMOL/L (3.5-5.1) Chloride Level 104 MMOL/L (98-107) Carbon Dioxide Level 29 MMOL/L (21-32) Anion Gap 7 mmol/L (5-15) Blood Urea Nitrogen 43 mg/dL (7-18) H Creatinine 4.8 MG/DL (0.55-1.30) H Estimat Glomerular Filtration Rate 8.8 mL/min (>60) Glucose Level 72 MG/DL (74-106) #L Hemoglobin A1c Pending Uric Acid Pending Calcium Level 7.2 MG/DL (8.5-10.1) L Phosphorus Level Pending Magnesium Level Pending Total Bilirubin Pending Aspartate Amino Transf (AST/SGOT) Pending Alanine Aminotransferase (ALT/SGPT) Pending Alkaline Phosphatase Pending C-Reactive Protein, Quantitative Pending Pro-B-Type Natriuretic Peptide Pending Total Protein Pending Albumin Pending Globulin Pending Triglycerides Level Pending Cholesterol Level Pending LDL Cholesterol Pending HDL Cholesterol Pending Cholesterol/HDL Ratio Pending Current Medications Medications (Trade) Dose Ordered Sig/Yeimi Route PRN Reason Start Time Stop Time Status Last Admin Dose Admin Acetaminophen (Tylenol) 650 mg Q4H PRN ORAL Temp >100.5 09/24/20 10:30 10/24/20 10:29 Ascorbic Acid (Vitamin C) 250 mg BID ORAL 09/24/20 18:00 10/24/20 17:59 09/25/20 09:34 Atorvastatin Calcium (Lipitor) 40 mg BEDTIME ORAL 09/24/20 21:00 12/23/20 20:59 09/24/20 21:30 Ceftriaxone Sodium 1 gm/ Dextrose 55 ml @ 110 mls/hr Q24H IVPB 09/24/20 12:00 10/01/20 11:59 09/24/20 13:03 Citalopram Hydrobromide (CeleXA) 20 mg DAILY ORAL 09/25/20 09:00 10/25/20 08:59 09/25/20 09:33 Dextrose (Dextrose 50%) 25 ml Q30M PRN IV Hypoglycemia 09/24/20 21:15 12/23/20 21:14 Dextrose (Dextrose 50%) 50 ml Q30M PRN IV Hypoglycemia 09/24/20 21:15 12/23/20 21:14 Gabapentin (Neurontin) 100 mg THREE TIMES A DAY ORAL 09/24/20 13:00 10/24/20 12:59 09/25/20 09:33 Insulin Aspart (NovoLOG) BID SUBQ 09/25/20 09:00 12/24/20 08:59 Pantoprazole (Protonix) 40 mg DAILY ORAL 09/25/20 09:00 10/25/20 08:59 09/25/20 09:33 Sevelamer Carbonate (Renvela) 2,400 mg THREE TIMES A DAY ORAL 09/24/20 13:00 12/23/20 12:59 09/25/20 09:34 Sodium Chloride 1,000 ml @ 75 mls/hr [id number] IV 09/24/20 11:00 10/24/20 10:59 09/25/20 00:25 Vancomycin HCl (Firvanq) 250 mg FOUR TIMES A DAY ORAL 09/24/20 13:00 10/01/20 12:59 09/25/20 09:33 Vitamin B Complex/ Vit C/Folic Acid (Nephrovite) 1 tab DAILY ORAL 09/25/20 09:00 10/25/20 08:59 09/25/20 09:33 Erika Stiles MD Sep 25, 2020 11:01
[2020-09-25 11:05] LABS: CHOLESTEROL 101 MG/DL (< 200); HDL CHOLESTEROL 53 MG/DL (40-60); TRIGLYCERIDES 106 MG/DL (30-150)
--- NOTE | 2020-09-25 11:20 | NUR ---
RD ASSESSMENT & RECOMMENDATIONS SEE CARE ACTIVITY FOR COMPLETE ASSESSMENT DAILY ESTIMATED NEEDS: Needs based on ESRD on HD 44kg 30-35 kcals/kg [id number] total kcals 1.25-1.8 g protein/kg 55-79 g total protein Fluid per MD, on HD NUTRITION DIAGNOSIS: Increased kcal and pro needs r/t renal dysfunction as evidenced by pt w/ ESRD on HD. CURRENT DIET: Renal ms ground PO DIET RECOMMENDATIONS: Maintain renal diet/ texture per strawhat sizer ADDITIONAL RECOMMENDATIONS: 1) Daily wts, calibrated bed scale 2) Rec LDR RN eval for appropriate texture 3) Add NEPRO BID (425 kcal/ 19g pro each) 4) Monitor BG-> POC glu-> am BG low 72 W/ variable po intake pt at risk for hypoglycemia Snacks in b/w meals as tolerated
[2020-09-25] MEDS: cefTRIAXone 1 GM in D5W 55 ML IVPB SCH (11:54)
[2020-09-25 12:00] VITALS: BP_SYST 107; BP_SYST 108; BP_DIAS 46; BP_DIAS 71
--- NOTE | 2020-09-25 13:09 | NUR ---
NURSE NOTES: Called Dr Stiles regarding Pt MRSA nares swab positive. awaiting call back. Pt already on contact isolation for CDIF
--- NOTE | 2020-09-25 13:54 | NUR ---
NURSE NOTES:WOUND ASSESSMENT PATIENT AWAKE ALERT AND FEEDING HERSELF LUNCH. SHE IS ABLE TO ASSIST WITH REPOSITIONING IN BED. SACRUM -STAGE II PRESSURE ULCER MEASURES 3.0X0.5X0.1CM. VINOD WOUND DARK RED IN COLOR, TENDER TO TOUCH AND EXCORIATED IN AREAS. RECOMMEND- CLEAN WITH SALINE, PAT DRY AND APPLY CALAZINE. COVER AREA WITH OPTIFOAM. REPLACE DRESSING EVERY OTHER DAY OR NEEDED. RIGHT LATERAL ANKLE- STAGE I MEASURES 1.8X2.0CM. NONBLANCHABLE ERYTHEMA. RECOMMEND-APPLY CAVILON SKIN PROTECTOR AND COVER WITH OPTIFOAM DRESSING. REPLACE EVERY 3 DAYS OR NEEDED. NOTED DIFFUSE NONBLANCHABLE DARK RED SPOTS THE SIZE OF A PENCIL HEAD ON PATIENT'S BACK. PER PATIENT, NON TENDER. ALSO RECOMMEND: ASSIST PATIENT WITH REPOSITIONING T LEAST EVERY 2 HOURS OR TOLERATED ELEVATE HEELS WITH PILLOWS
--- NOTE | 2020-09-25 14:46 | Diagnostic Imaging Report ---
Clinical Indication: Chest pain Technique: Spiral acquisitions obtained through the chest. No IV contrast utilized, for referring physician request. Multiplanar reconstructions generated. Total dose length product 156 mGycm. CTDIvol(s) 4 mGy. Dose reduction achieved using automated exposure control Comparison: none Findings: There is a moderate left and small to moderate right pleural effusion. There is compressive atelectasis of much of both lower lobes. There is hazy parenchymal opacity throughout both upper lobes. Multiple pulmonary nodules are present bilaterally. These are predominantly at the lung bases, largest measuring 1 cm diameter. The heart is enlarged. No pericardial effusion. There is an unusual right paratracheal mass which demonstrates a soft tissue attenuation rim, more central lower attenuation, and yet more central eggshell calcification. The thyroid is enlarged and demonstrates numerous calcifications. There is also linear focus of gas within the thyroid isthmus. The upper trachea is narrowed in the AP plane by about 50%. No other mass or adenopathy. No axillary mass or adenopathy. There is diffuse edema of the subcutaneous fat. There is a left chest tunneled dialysis catheter, tip terminating at the cavoatrial junction. The bones demonstrate mild degenerative spondylosis changes. Included upper abdominal anatomy demonstrates marked gastric distention. The kidneys are atrophic. Impression: Multiple bilateral pulmonary nodules, suspicious for metastatic malignancy. Cardiomegaly. Hazy upper lobe parenchymal opacities are probably secondary to mild pulmonary edema Bilateral pleural effusions. Resultant basilar compressive atelectatic changes Unusual sliver of gas within the thyroid isthmus. Etiology/significance uncertain. Correlate with any prior history of tracheal trauma or prior tracheostomy. Narrowing of the proximal trachea, likely due to combination of compression by the enlarged thyroid and laxity of the posterior ligament Thyromegaly without discrete mass, likely goiter Markedly distended stomach, etiology not demonstrated Left chest tunneled dialysis catheter Atrophic kidneys, consistent with chronic renal disease Evidence of mild anasarca Findings discussed by phone with Dr. Krause at the time of interpretation The CT scanner at [facility] is accredited by the [employer] and the scans are performed using protocols designed to limit radiation exposure to as low as reasonably achievable to attain images of sufficient resolution adequate for diagnostic evaluation.
--- NOTE | 2020-09-25 15:00 | NUR ---
NURSE NOTES: Pt RR increased, 24. upon assessment, Pt sounded wheezy. notified Dr Swanson. Orders for Lasix, chest xray, and d/c NS. orders acknowledged and carried out. Also notified Sky of MRSA of nares at this time.
[2020-09-25 16:00] VITALS: BP 127/77
--- NOTE | 2020-09-25 16:15 | Consultation ---
DATE OF CONSULTATION: 09/25/2020 PULMONARY CONSULTATION HISTORY OF PRESENT ILLNESS: This is a 75-year-old female with a history of ESRD, on dialysis. She is a residential resident. She has a history of pulmonary edema. She was sent into the hospital with altered mental status. She was admitted with a concern about being confused and lethargic. PAST MEDICAL HISTORY: The patient has a long and complicated past history consisting of pleural effusion, cardiomyopathy, history of AV fistula, ESRD, on dialysis, diabetes mellitus, chronic dysphagia, hyperlipidemia, hypercalcemia, dementia, hypertension, GERD, history of pulmonary nodule, history of L4-L5 diskitis, and a previous cardiac arrest. MEDICATIONS: Her list of medications and diet include renal diet, oxygen 2 L, nystatin, Protonix, Renvela, ascorbic acid, Lipitor, , citalopram, gabapentin, insulin Lantus, Nephro-Kat. ALLERGIES: None reported. REVIEW OF SYSTEMS: Not obtainable. PHYSICAL EXAMINATION: GENERAL: An elderly female. HEENT: Unremarkable. SKIN: She has an abrasion over her left anterior chest wall at the head of the scapula. CHEST: Clear breath sounds bilaterally with normal heart sounds. ABDOMEN: Soft. EXTREMITIES: There is no edema. She has a stage I skin breakdown over the right heel. She has a left upper extremity AV shunt and a left chest Port-A-Cath. LABORATORY AND DIAGNOSTIC DATA: Review of outside records includes echocardiogram, which shows normal left ventricular size, EF is 45% with global hypokinesis of left ventricle. There is also a large right effusion, which was seen on an imaging study obtained in July of this year. There is also a concern of right paratracheal soft-tissue mass with multiple pulmonary nodules. IMPRESSION: 1. Pleural effusion, by history. 2. ESRD, on dialysis. 3. Diabetes mellitus. 4. Hypertension. DISCUSSION: We will obtain CT chest. Continue other home medications and dialysis. We will follow carefully. The etiology of her effusion and soft-tissue mass seems to be elucidated. Naman Krause M.D. DR: Farshad JOB#: [id number] CC:
--- NOTE | 2020-09-25 16:40 | NUR ---
NURSE NOTES: Called [facility] for Pt. Spoke to Dontrell, sales representatives. Confirmed Apt for HD 09/26/2020. Also spoke to Lyle, cobol engineer to let her know.
--- NOTE | 2020-09-25 16:57 | Diagnostic Imaging Report ---
Indication: Shortness of breath Technique: One view of the chest Comparison: none Findings: Heart is enlarged. There is bilateral interstitial edema. There is a left chest tunneled dialysis catheter. Impression: Cardiomegaly with bilateral interstitial edema.
[2020-09-25] MEDS: Lactobacillus-GG tablet ORAL SCH (17:35)
--- NOTE | 2020-09-25 17:45 | NUR ---
NURSE NOTES: Pt reminded multiple times throughout the day to not remove IV, Pt verbalized understanding. however, during rounding, found Pt IV on floor. Pt states "I had to take it out" when inquiring reason, Pt said "i dont know". Reinserted IV on R wrist 24g, SL by ZENAIDA Valdez. Asymptomatic and intact. Pt verbalized understanding to not remove again. Pt is stable at this time sitting high fowlers eating dinner. No s/s of distress at this time. Call light in reach, bed arlam on and bed low and locked.
--- NOTE | 2020-09-25 19:05 | NUR ---
NURSE NOTES: RECEIVED REPORT FROM ZENAIDA GIRALDO. PATIENT AWAKE IN BED, OX1-2, VERBALLY RESPONSIVE PRIMARILY IN SERBIAN, ABLE TO MAKE NEEDS KNOWN. NO COMPLAINTS OF PAIN OR DISCOMFORT AT THIS TIME. BREATHING IS EVEN AND UNLABORED ON 2LPM VIA NC- NO S/SX OF DISTRESS NOTED; PATIENT NOTED TO BE REMOVING NC AT HER OWN DISCRETION, RE-EDUCATED PATIENT ON IMPORTANCE OF KEEPING IT ON. NOTED TO HAVE VINCE AV FISTULA, AND VINCE PERMACATH- BOTH SITES ASYMPTOMATIC. FALL PRECAUTIONS IN PLACE. CONTACT ISOLATION IN PLACE FOR C. DIFF. BED LOCKED AND IN LOWEST POSITION, SIDERAILS UP X 3. CALL LIGHT WITHIN REACH, WILL CONTINUE TO MONITOR PER POC. Addendum: 09/25/20 at 1947 by Aleshia Bentley RN CORRECTION: PERMACATH LOCATED ON LEFT UPPER CHEST
--- NOTE | 2020-09-25 19:22 | NUR ---
NURSE HAND-OFF REPORT: Important Events on Shift: pt iv fluid stopped, lasix given, stat cxr Patient Status: fc, stable Diet: renal diet ccho soft mech Pending Orders: 2decho Pending Results/Labs: Pending MD notification: Latest Vital Signs: Temperature 98.1 , Pulse 85 , B/P 127 /77 , Respiratory Rate 19 , O2 SAT 97 , Nasal Cannula, O2 Flow Rate 2.0 . Vital Sign Comment: EKG Rhythm: Sinus Rhythm Rhythm change?: N MD Notified?: - MD Response: Latest Ness Fall Score: 60 Fall Risk: High Risk Safety Measures: Call light Within Reach, Bed Alarm Zone 1, Side Rails Side Rails x3, Bed position Low and Locked. Fall Precautions: Yellow Socks Yellow Gown Door Sign Patient Fall Education Report given to ZENAIDA Wise. Addendum: 09/25/20 at 1943 by Becky Martin RN RN pt pulled out IV 1700
[2020-09-25 20:00] VITALS: BP 142/64
--- NOTE | 2020-09-25 20:15 | NUR ---
NURSE NOTES: PATIENT'S GRANDDAUGHTER, CORBY, AT BEDSIDE. PER GRANDDAUGHTER, PATIENT HAS HAD SURGERIES DONE IN BOTH EYES. ADDITIONALLY, PATIENT HAS HAD CATARACTS.
--- NOTE | 2020-09-25 20:25 | Diagnostic Imaging Report ---
Indication: Shortness of breath Technique: One view of the chest Comparison: 09/23/2020 Findings: There is decreased retrocardiac consolidation and bilateral interstitial congestion, now largely resolved. The heart remains enlarged. Left chest tunneled dialysis catheter remains. Impression: Improved retrocardiac consolidation and bilateral interstitial edema, over 2 days
--- NOTE | 2020-09-25 22:48 | Psychiatric Progress Note ---
Psychiatry Progress Note Psychiatry Progress Note Medications Current Medications Medications (Trade) Dose Ordered Sig/Yeimi Route PRN Reason Start Time Stop Time Status Last Admin Dose Admin Acetaminophen (Tylenol) 650 mg Q4H PRN ORAL Temp >100.5 09/24/20 10:30 10/24/20 10:29 Ascorbic Acid (Vitamin C) 250 mg BID ORAL 09/24/20 18:00 10/24/20 17:59 09/25/20 17:35 Ceftriaxone Sodium 1 gm/ Dextrose 55 ml @ 110 mls/hr Q24H IVPB 09/24/20 12:00 10/01/20 11:59 09/25/20 11:54 Citalopram Hydrobromide (CeleXA) 20 mg DAILY ORAL 09/25/20 09:00 10/25/20 08:59 09/25/20 09:33 Dextrose (Dextrose 50%) 25 ml Q30M PRN IV Hypoglycemia 09/24/20 21:15 12/23/20 21:14 Dextrose (Dextrose 50%) 50 ml Q30M PRN IV Hypoglycemia 09/24/20 21:15 12/23/20 21:14 Gabapentin (Neurontin) 100 mg THREE TIMES A DAY ORAL 09/24/20 13:00 10/24/20 12:59 09/25/20 17:36 Insulin Aspart (NovoLOG) BID SUBQ 09/25/20 09:00 12/24/20 08:59 Lactobacillus Acidophilus (Culturelle) 1 tab THREE TIMES A DAY ORAL 09/25/20 18:00 12/24/20 17:59 09/25/20 17:35 Pantoprazole (Protonix) 40 mg BID ORAL 09/25/20 18:00 10/25/20 08:59 09/25/20 17:36 Sevelamer Carbonate (Renvela) 1,600 mg THREE TIMES A DAY ORAL 09/25/20 18:00 12/23/20 12:59 09/25/20 17:36 Vancomycin HCl (Firvanq) 250 mg FOUR TIMES A DAY ORAL 09/24/20 13:00 10/01/20 12:59 09/25/20 20:17 Vitamin B Complex/ Vit C/Folic Acid (Nephrovite) 1 tab DAILY ORAL 09/25/20 09:00 10/25/20 08:59 11/4/20 09:33 Neurological/Psychiatric: Reports: anxiety, depressed, emotional problems Allergies: Coded Allergies: No Known Allergies (Unverified , 09/23/20) Objective Data Height (Feet): 5 Height (Inches): 0.00 Weight (Pounds): 96 General Appearance: alert, thin Additional Comments: alert, oriented times self, place. Mood is agitated. Affect is flat. Thought process, there is a paucity of thought content. Thought content, no suicidal or homicidal ideation. Cognition is impaired. Insight and judgment is impaired. Assessment/Plan Assessment/Plan: ASSESSMENT: [place] I Dementia. Anxiety disorder. Rule out acute metabolic encephalopathy. [place] II Deferred. [place] III As above. [place] IV Low. [place] V 20. PLAN: 1. Celexa 20 mg. 2. Haldol IM p.r.n. for agitation. 3. Discussed with the nurse. Lona Tarango MD Sep 25, 2020 22:48
[2020-09-26] VITALS: BP 142/70
[2020-09-26 04:00] VITALS: BP 141/65
--- NOTE | 2020-09-26 05:00 | NUR ---
NURSE NOTES: PATIENT CHANGED, LINEN CHANGED, ORAL CARE PROVIDED, WOUND CARE DONE. PATIENT HAD MODERATELY-SIZED BMX1- FORMED IN CONSISTENCY, YELLOW-BROWN IN COLOR.
--- NOTE | 2020-09-26 06:41 | NUR ---
NURSE HAND-OFF REPORT: Important Events on Shift: WOUND CARE, FOR HD TODAY WITH [facility] (09/26) Patient Status: STABLE Diet: RENAL, MECHANICAL-SOFT Pending Orders: HD TODAY (09/26) Pending Results/Labs: AM LABS Pending MD notification: N/A Latest Vital Signs: Temperature 97.5 , Pulse 82 , B/P 141 /65 , Respiratory Rate 20 , O2 SAT 95 , Nasal Cannula, O2 Flow Rate 2.0 . Vital Sign Comment: STABLE EKG Rhythm: Sinus Rhythm Rhythm change?: N MD Notified?: - MD Response: Latest Ness Fall Score: 70 Fall Risk: High Risk Safety Measures: Call light Within Reach, Bed Alarm Zone 1, Side Rails Side Rails x3, Bed position Low and Locked. Fall Precautions: Yellow Socks Yellow Gown Door Sign Patient Fall Education Report given to WILL AMEND ONCE REPORT GIVEN TO ASSIGNED NURSE. Addendum: 09/26/20 at 0733 by Aleshia Bentley RN REPORT GIVEN TO ZENAIDA CASTRO.
[2020-09-26 07:17] LABS: BASOPHILS % (AUTO) 0.7 % (0.0-2.0); EOSINOPHILS % (AUTO) 0.3 % (0.0-3.0); HEMATOCRIT 31.3 % (37.0-47.0); HEMOGLOBIN 9.3 G/DL (12.0-16.0); LYMPHOCYTES % (AUTO) 8.1 % (20.0-45.0); MEAN CORPUSCULAR VOLUME 109 FL (80-99); NEUTROPHILS % (AUTO) 82.9 % (45.0-75.0); PLATELET COUNT 322 K/UL (150-450); RED BLOOD COUNT 2.87 M/UL (4.20-5.40); RED CELL DISTRIBUTION WIDTH 17.7 % (11.6-14.8); WHITE BLOOD COUNT 15.7 K/UL (4.8-10.8)
[2020-09-26 07:51] LABS: ALANINE AMINOTRANSFERASE < 6 U/L (12-78); ALBUMIN/GLOBULIN RATIO 0.5 (1.0-2.7); ALKALINE PHOSPHATASE 127 U/L (46-116); ANION GAP 7 mmol/L (5-15); ASPARTATE AMINO TRANSFERASE 9 U/L (15-37); BILIRUBIN,TOTAL 0.4 MG/DL (0.2-1.0); BLOOD UREA NITROGEN 52 mg/dL (7-18); CALCIUM 7.8 MG/DL (8.5-10.1); CARBON DIOXIDE 27 MMOL/L (21-32); CHLORIDE 101 MMOL/L (98-107); CREATININE 5.5 MG/DL (0.55-1.30); GAMMA GLUTAMYL TRANSPEPTIDASE 37 U/L (5-85); PHOSPHORUS 3.1 MG/DL (2.5-4.9); POTASSIUM 4.7 MMOL/L (3.5-5.1); SODIUM 135 MMOL/L (136-145)
--- NOTE | 2020-09-26 07:53 | NUR ---
NURSE NOTES: Report received from Aleshia ESTEVEZ. Patient seen on rounds, up in bed eating breakfast, not in distress or pain, on O2 at 2lpm via NC, HR 83bpm. VINCE fistula noted with bruits and thrill. Left upper chest permacath noted. PIV on right hand patent and intact. Pt is scheduled for dialysis today. Contact isolation precautions maintained. Bed low and locked, siderails up x2, call light placed within reach and instructed to call nurse for assistance. Will continue to monitor.
[2020-09-26 08:00] VITALS: BP 134/93
[2020-09-26] MEDS: Ascorbic Acid 500mg tab ORAL SCH ×2 (08:11→17:27)
[2020-09-26] MEDS: Lactobacillus-GG tablet ORAL SCH ×3 (08:12→17:26)
[2020-09-26] MEDS: NovoLOG Insulin Flexpen SUBQ SCH ×2 (08:12→17:29)
[2020-09-26] MEDS: Vancomycin oral 125mg/2.5ml ORAL SCH ×4 (08:12→20:17)
[2020-09-26] MEDS: Citalopram Hydrobromide 10mg Tab ORAL SCH (08:12)
[2020-09-26] MEDS: Nephrovite tab (Rena-Vite) ORAL SCH (08:12)
--- NOTE | 2020-09-26 11:12 | Nephrology Progress Note ---
Assessment/Plan Problem List: (1) ESRD (end stage renal disease) (2) Diarrhea (3) C. difficile colitis (4) Diastolic CHF, chronic Assessment End-stage renal disease on hemodialysis 3 times a week Patient has a left upper chest permacath for dialysis access Patient has C. difficile colitis and watery diarrhea History of hypertension History of diabetes History of hyperlipemia History of cardiomyopathy, congestive heart failure Plan September 26: Labs checked today. Due for dialysis today. Continue per consultants. Medications reviewed. Subjective ROS Limited/Unobtainable: No Constitutional: Reports: malaise Objective Objective Last 24 Hour Vital Signs Date Time Temp Pulse Resp B/P (MAP) Pulse Ox O2 Delivery O2 Flow Rate FiO2 09/26/20 09:00 Nasal Cannula 2.0 09/26/20 08:00 83 09/26/20 08:00 97.8 84 18 134/93 (107) 100 09/26/20 07:59 99 Nasal Cannula 2.0 28 09/26/20 04:00 97.5 82 20 141/65 (90) 95 09/26/20 04:00 82 09/26/20 00:00 97.2 85 20 142/70 (94) 100 09/26/20 00:00 85 09/25/20 21:00 Nasal Cannula 2.0 09/25/20 20:00 97.4 87 20 142/64 (90) 99 09/25/20 20:00 86 09/25/20 18:57 97 Nasal Cannula 2.0 28 09/25/20 16:00 85 09/25/20 16:00 98.1 77 19 127/77 (94) 99 09/25/20 12:00 98.6 76 19 107/71 (83) 97 09/25/20 12:00 82 Intake and Output 09/25/20 09/26/20 19:00 07:00 Intake Total 840 ml 300 ml Balance 840 ml 300 ml Intake Oral 840 ml 300 ml # Voids 1 # Bowel Movements 2 3 Current Medications Medications (Trade) Dose Ordered Sig/Yeimi Route PRN Reason Start Time Stop Time Status Last Admin Dose Admin Acetaminophen (Tylenol) 650 mg Q4H PRN ORAL Temp >100.5 09/24/20 10:30 10/24/20 10:29 Ascorbic Acid (Vitamin C) 250 mg BID ORAL 09/24/20 18:00 10/24/20 17:59 09/26/20 08:11 Ceftriaxone Sodium 1 gm/ Dextrose 55 ml @ 110 mls/hr Q24H IVPB 09/24/20 12:00 10/01/20 11:59 09/25/20 11:54 Citalopram Hydrobromide (CeleXA) 20 mg DAILY ORAL 09/25/20 09:00 10/25/20 08:59 09/26/20 08:12 Dextrose (Dextrose 50%) 25 ml Q30M PRN IV Hypoglycemia 09/24/20 21:15 12/23/20 21:14 Dextrose (Dextrose 50%) 50 ml Q30M PRN IV Hypoglycemia 09/24/20 21:15 12/23/20 21:14 Gabapentin (Neurontin) 100 mg THREE TIMES A DAY ORAL 09/24/20 13:00 10/24/20 12:59 09/26/20 08:11 Insulin Aspart (NovoLOG) BID SUBQ 09/25/20 09:00 12/24/20 08:59 Lactobacillus Acidophilus (Culturelle) 1 tab THREE TIMES A DAY ORAL 09/25/20 18:00 12/24/20 17:59 09/26/20 08:12 Pantoprazole (Protonix) 40 mg BID ORAL 09/25/20 18:00 10/25/20 08:59 09/26/20 08:11 Sevelamer Carbonate (Renvela) 1,600 mg THREE TIMES A DAY ORAL 09/25/20 18:00 12/23/20 12:59 09/26/20 08:11 Vancomycin HCl (Firvanq) 250 mg FOUR TIMES A DAY ORAL 09/24/20 13:00 10/01/20 12:59 09/26/20 08:12 Vitamin B Complex/ Vit C/Folic Acid (Nephrovite) 1 tab DAILY ORAL 09/25/20 09:00 10/25/20 08:59 09/26/20 08:12 Laboratory Tests 09/25/20 17:07: POC Whole Blood Glucose 113H 09/25/20 20:22: POC Whole Blood Glucose 157H 09/26/20 06:44: White Blood Count 15.7H, Red Blood Count 2.87L, Hemoglobin 9.3L, Hematocrit 31.3L, Mean Corpuscular Volume 109H, Mean Corpuscular Hemoglobin 32.5H, Mean Co rpuscular Hemoglobin Concent 29.8L, Red Cell Distribution Width 17.7H, Platelet Count 322, Mean Platelet Volume 6.5, Neutrophils (%) (Auto) 82.9H, Lymphocytes (%) (Auto) 8.1L, Monocytes (%) (Auto) 8.0, Eosinophils (%) (Auto) 0.3, Basophils (%) (Auto) 0.7, Sodium Level 135L, Potassium Level 4.7, Chloride Level 101, Carbon Dioxide Level 27, Anion Gap 7, Blood Urea Nitrogen 52H, Creatinine 5.5H, Estimat Glomerular Filtration Rate 7.6, Glucose Level 125H, Uric Acid 5.8, C alcium Level 7.8L, Phosphorus Level 3.1, Total Bilirubin 0.4, Gamma Glutamyl Transpeptidase 37, Aspartate Amino Transf (AST/SGOT) 9L, Alanine Aminotransferase (ALT/SGPT) < 6L, Alkaline Phosphatase 127H, C-Reactive Protein, Quantitative 12.0H, Pro-B-Type Natriuretic Peptide > 56396K, Total Protein 5.9L, Albumin 2.0L, Globulin 3.9, Albumin/Globulin Ratio 0.5L, Carcinoembryonic Antigen [Pending] 09/26/20 08:06: POC Whole Blood Glucose 132H Height (Feet): 5 Height (Inches): 0.00 Weight (Pounds): 96 General Appearance: no apparent distress, lethargic Cardiovascular: normal rate Respiratory/Chest: decreased breath sounds Abdomen: distended Chris Puckett MD Sep 26, 2020 11:12
[2020-09-26 12:00] VITALS: BP 130/86
--- NOTE | 2020-09-26 12:06 | Pulmonology Progress Note ---
Subjective ROS Limited/Unobtainable: No Interval Events: CT chest reviewed Constitutional: Reports: no symptoms; Denies: fever, chills HEENT: Repors: no symptoms Respiratory: Reports: no symptoms Cardiovascular: Reports: no symptoms Gastrointestinal/Abdominal: Reports: nausea, diarrhea; Denies: vomiting Genitourinary: Reports: no symptoms Neurologic: Reports: no symptoms Musculoskeletal: Reports: pain - abdominal Allergies: Coded Allergies: No Known Allergies (Unverified , 09/23/20) Objective Last 24 Hour Vital Signs Date Time Temp Pulse Resp B/P (MAP) Pulse Ox O2 Delivery O2 Flow Rate FiO2 09/26/20 09:00 Nasal Cannula 2.0 09/26/20 08:00 83 09/26/20 08:00 97.8 84 18 134/93 (107) 100 09/26/20 07:59 99 Nasal Cannula 2.0 28 09/26/20 04:00 97.5 82 20 141/65 (90) 95 09/26/20 04:00 82 09/26/20 00:00 97.2 85 20 142/70 (94) 100 09/26/20 00:00 85 09/25/20 21:00 Nasal Cannula 2.0 09/25/20 20:00 97.4 87 20 142/64 (90) 99 09/25/20 20:00 86 09/25/20 18:57 97 Nasal Cannula 2.0 28 09/25/20 16:00 85 09/25/20 16:00 98.1 77 19 127/77 (94) 99 Intake and Output 09/25/20 09/26/20 19:00 07:00 Intake Total 840 ml 300 ml Balance 840 ml 300 ml Intake Oral 840 ml 300 ml # Voids 1 # Bowel Movements 2 3 General Appearance: no acute distress HEENT: normocephalic Respiratory: chest wall non-tender, lungs clear Cardiovascular: normal peripheral pulses, normal rate Abdomen: normal bowel sounds Microbiology Date/Time Source Procedure Growth Status 09/24/20 05:30 Rectum - Final NO CARBAPENEM-RESISTANT ENTEROBACTERI... Complete 09/24/20 05:30 Rectal Mucosa VRE Culture - Final Enterococcus Faecalis - Vre Complete 09/24/20 05:30 Nasal Nares MRSA Culture - Final Staphylococcus Aureus - Mrsa Complete 09/24/20 00:20 Nasopharynx SARS-CoV-2 RdRp Gene Assay - Final Complete 09/24/20 00:05 Stool Clostridium difficile Toxin Assay - Final Complete Laboratory Tests 09/25/20 17:07: POC Whole Blood Glucose 113H 09/25/20 20:22: POC Whole Blood Glucose 157H 09/26/20 06:44: White Blood Count 15.7H, Red Blood Count 2.87L, Hemoglobin 9.3L, Hematocrit 31.3L, Mean Corpuscular Volume 109H, Mean Corpuscular Hemoglobin 32.5H, Mean Corpuscular Hemoglobin Concent 29.8L, Red Cell Distribution Width 17.7H, Platelet Count 322, Mean Platelet Volume 6.5, Neutrophils (%) (Auto) 82.9H, Lymphocytes (%) (Auto) 8.1L, Monocytes (%) (Auto) 8.0, Eosinophils (%) (Auto) 0.3, Basophils (%) (Auto) 0.7, Sodium Level 135L, Potassium Level 4.7, Chloride Level 101, Carbon Dioxide Level 27, Anion Gap 7, Blood Urea Nitrogen 52H, Creatinine 5.5H, Estimat Glomerular Filtration Rate 7.6, Glucose Level 125H, Uric Acid 5.8, Calcium Level 7.8L, Phosphorus Level 3.1, Total Bilirubin 0.4, Gamma Glutamyl Transpeptidase 37, Aspartate Amino Transf (AST/SGOT) 9L, Alanine Aminotransferase (ALT/SGPT) < 6L, Alkaline Phosphatase 127H, C-Reactive Protein, Quantitative 12.0H, Pro-B-Type Natriuretic Peptide > 13878H, Total Protein 5.9L, Albumin 2.0L, Globulin 3.9, Albumin/Globulin Ratio 0.5L, Carcinoembryonic Antigen [Pending] 09/26/20 08:06: POC Whole Blood Glucose 132H Current Medications Medications (Trade) Dose Ordered Sig/Yeimi Route PRN Reason Start Time Stop Time Status Last Admin Dose Admin Acetaminophen (Tylenol) 650 mg Q4H PRN ORAL Temp >100.5 09/24/20 10:30 10/24/20 10:29 Ascorbic Acid (Vitamin C) 250 mg BID ORAL 09/24/20 18:00 10/24/20 17:59 09/26/20 08:11 Ceftriaxone Sodium 1 gm/ Dextrose 55 ml @ 110 mls/hr Q24H IVPB 09/24/20 12:00 10/01/20 11:59 09/25/20 11:54 Citalopram Hydrobromide (CeleXA) 20 mg DAILY ORAL 09/25/20 09:00 10/25/20 08:59 09/26/20 08:12 Dextrose (Dextrose 50%) 25 ml Q30M PRN IV Hypoglycemia 09/24/20 21:15 12/23/20 21:14 Dextrose (Dextrose 50%) 50 ml Q30M PRN IV Hypoglycemia 09/24/20 21:15 12/23/20 21:14 Gabapentin (Neurontin) 100 mg THREE TIMES A DAY ORAL 09/24/20 13:00 10/24/20 12:59 09/26/20 08:11 Insulin Aspart (NovoLOG) BID SUBQ 09/25/20 09:00 12/24/20 08:59 Lactobacillus Acidophilus (Culturelle) 1 tab THREE TIMES A DAY ORAL 09/25/20 18:00 12/24/20 17:59 09/26/20 08:12 Pantoprazole (Protonix) 40 mg BID ORAL 09/25/20 18:00 10/25/20 08:59 09/26/20 08:11 Sevelamer Carbonate (Renvela) 1,600 mg THREE TIMES A DAY ORAL 09/25/20 18:00 12/23/20 12:59 09/26/20 08:11 Vancomycin HCl (Firvanq) 250 mg FOUR TIMES A DAY ORAL 09/24/20 13:00 10/01/20 12:59 09/26/20 08:12 Vitamin B Complex/ Vit C/Folic Acid (Nephrovite) 1 tab DAILY ORAL 09/25/20 09:00 10/25/20 08:59 09/26/20 08:12 Assessment/Plan Assessment/Plan IMPRESSION: 1. Pleural effusions; small bilateral 2. ESRD, on dialysis. 3. Diabetes mellitus. 4. Hypertension. 5 R hilar mass with bilateral pulmonary nodules DISCUSSION: Reviewed CT chest. Continue other home medications and dialysis. I will follow carefully. The etiology of her effusion and soft-tissue mass seems to be elucidated. Scott Dunn Omar Syed MD Sep 26, 2020 12:06
--- NOTE | 2020-09-26 12:08 | NUR ---
NURSE NOTES: Dr. Darby informed of (+) VRE in rectum. No new orders at this time.
--- NOTE | 2020-09-26 12:15 | Infectious Diseases Prog Note ---
Assessment/Plan Assessment/Plan A 1. Pneumonia COVID-19 negative. 2. Diabetes. 3. Hypertension. 4. Renal failure on dialysis. 5. C. 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 continue ceftriaxone 3 more days 2. continue po vancomycin 11 more days 3. will follow up cultures Subjective ROS Limited/Unobtainable: Yes Constitutional: Denies: fever Gastrointestinal/Abdominal: Reports: diarrhea Allergies: Coded Allergies: No Known Allergies (Unverified , 09/23/20) Objective Last 24 Hour Vital Signs Date Time Temp Pulse Resp B/P (MAP) Pulse Ox O2 Delivery O2 Flow Rate FiO2 09/26/20 09:00 Nasal Cannula 2.0 09/26/20 08:00 83 09/26/20 08:00 97.8 84 18 134/93 (107) 100 09/26/20 07:59 99 Nasal Cannula 2.0 28 09/26/20 04:00 97.5 82 20 141/65 (90) 95 09/26/20 04:00 82 09/26/20 00:00 97.2 85 20 142/70 (94) 100 09/26/20 00:00 85 09/25/20 21:00 Nasal Cannula 2.0 09/25/20 20:00 97.4 87 20 142/64 (90) 99 09/25/20 20:00 86 09/25/20 18:57 97 Nasal Cannula 2.0 28 09/25/20 16:00 85 09/25/20 16:00 98.1 77 19 127/77 (94) 99 Height (Feet): 5 Height (Inches): 0.00 Weight (Pounds): 96 HEENT: mucous membranes moist Respiratory/Chest: lungs clear Cardiovascular: normal rate Abdomen: soft, non tender Extremities: no edema Neurologic/Psychiatric: alert, responsive Musculoskeletal: atrophy Microbiology Date/Time Source Procedure Growth Status 09/24/20 05:30 Rectum - Final NO CARBAPENEM-RESISTANT ENTEROBACTERI... Complete 09/24/20 05:30 Rectal Mucosa VRE Culture - Final Enterococcus Faecalis - Vre Complete 09/24/20 05:30 Nasal Nares MRSA Culture - Final Staphylococcus Aureus - Mrsa Complete 09/24/20 00:20 Nasopharynx SARS-CoV-2 RdRp Gene Assay - Final Complete 09/24/20 00:05 Stool Clostridium difficile Toxin Assay - Final Complete Laboratory Tests Test 09/25/20 17:07 09/25/20 20:22 09/26/20 06:44 09/26/20 08:06 POC Whole Blood Glucose 113 MG/DL (74-106) H 157 MG/DL (74-106) H 132 MG/DL (74-106) H White Blood Count 15.7 K/UL (4.8-10.8) H Red Blood Count 2.87 M/UL (4.20-5.40) L Hemoglobin 9.3 G/DL (12.0-16.0) L Hematocrit 31.3 % (37.0-47.0) L Mean Corpuscular Volume 109 FL (80-99) H Mean Corpuscular Hemoglobin 32.5 PG (27.0-31.0) H Mean Corpuscular Hemoglobin Concent 29.8 G/DL (32.0-36.0) L Red Cell Distribution Width 17.7 % (11.6-14.8) H Platelet Count 322 K/UL (150-450) Mean Platelet Volume 6.5 FL (6.5-10.1) Neutrophils (%) (Auto) 82.9 % (45.0-75.0) H Lymphocytes (%) (Auto) 8.1 % (20.0-45.0) L Monocytes (%) (Auto) 8.0 % (1.0-10.0) Eosinophils (%) (Auto) 0.3 % (0.0-3.0) Basophils (%) (Auto) 0.7 % (0.0-2.0) Sodium Level 135 MMOL/L (136-145) L Potassium Level 4.7 MMOL/L (3.5-5.1) Chloride Level 101 MMOL/L (98-107) Carbon Dioxide Level 27 MMOL/L (21-32) Anion Gap 7 mmol/L (5-15) Blood Urea Nitrogen 52 mg/dL (7-18) H Creatinine 5.5 MG/DL (0.55-1.30) H Estimat Glomerular Filtration Rate 7.6 mL/min (>60) Glucose Level 125 MG/DL (74-106) H Uric Acid 5.8 MG/DL (2.6-7.2) Calcium Level 7.8 MG/DL (8.5-10.1) L Phosphorus Level 3.1 MG/DL (2.5-4.9) Total Bilirubin 0.4 MG/DL (0.2-1.0) Gamma Glutamyl Transpeptidase 37 U/L (5-85) Aspartate Amino Transf (AST/SGOT) 9 U/L (15-37) L Alanine Aminotransferase (ALT/SGPT) < 6 U/L (12-78) L Alkaline Phosphatase 127 U/L (46-116) H C-Reactive Protein, Quantitative 12.0 mg/dL (0.00-0.90) H Pro-B-Type Natriuretic Peptide > 97544 pg/mL (0-125) H Total Protein 5.9 G/DL (6.4-8.2) L Albumin 2.0 G/DL (3.4-5.0) L Globulin 3.9 g/dL Albumin/Globulin Ratio 0.5 (1.0-2.7) L Carcinoembryonic Antigen Pending Current Medications Medications (Trade) Dose Ordered Sig/Yeimi Route PRN Reason Start Time Stop Time Status Last Admin Dose Admin Acetaminophen (Tylenol) 650 mg Q4H PRN ORAL Temp >100.5 09/24/20 10:30 10/24/20 10:29 Ascorbic Acid (Vitamin C) 250 mg BID ORAL 09/24/20 18:00 10/24/20 17:59 09/26/20 08:11 Ceftriaxone Sodium 1 gm/ Dextrose 55 ml @ 110 mls/hr Q24H IVPB 09/24/20 12:00 10/01/20 11:59 09/25/20 11:54 Citalopram Hydrobromide (CeleXA) 20 mg DAILY ORAL 09/25/20 09:00 10/25/20 08:59 09/26/20 08:12 Dextrose (Dextrose 50%) 25 ml Q30M PRN IV Hypoglycemia 09/24/20 21:15 12/23/20 21:14 Dextrose (Dextrose 50%) 50 ml Q30M PRN IV Hypoglycemia 09/24/20 21:15 12/23/20 21:14 Gabapentin (Neurontin) 100 mg THREE TIMES A DAY ORAL 09/24/20 13:00 10/24/20 12:59 09/26/20 08:11 Insulin Aspart (NovoLOG) BID SUBQ 09/25/20 09:00 12/24/20 08:59 Lactobacillus Acidophilus (Culturelle) 1 tab THREE TIMES A DAY ORAL 09/25/20 18:00 12/24/20 17:59 09/26/20 08:12 Pantoprazole (Protonix) 40 mg BID ORAL 09/25/20 18:00 10/25/20 08:59 09/26/20 08:11 Sevelamer Carbonate (Renvela) 1,600 mg THREE TIMES A DAY ORAL 09/25/20 18:00 12/23/20 12:59 09/26/20 08:11 Vancomycin HCl (Firvanq) 250 mg FOUR TIMES A DAY ORAL 09/24/20 13:00 10/01/20 12:59 09/26/20 08:12 Vitamin B Complex/ Vit C/Folic Acid (Nephrovite) 1 tab DAILY ORAL 09/25/20 09:00 10/25/20 08:59 09/26/20 08:12 Aryan Darby MD Sep 26, 2020 12:15
--- NOTE | 2020-09-26 12:19 | General Progress Note ---
Subjective Allergies: Coded Allergies: No Known Allergies (Unverified , 09/23/20) Subjective looks dry sob better isolation Objective Last 24 Hour Vital Signs Date Time Temp Pulse Resp B/P (MAP) Pulse Ox O2 Delivery O2 Flow Rate FiO2 09/26/20 12:00 96.8 70 19 130/86 (101) 96 09/26/20 09:00 Nasal Cannula 2.0 09/26/20 08:00 83 09/26/20 08:00 97.8 84 18 134/93 (107) 100 09/26/20 07:59 99 Nasal Cannula 2.0 28 09/26/20 04:00 97.5 82 20 141/65 (90) 95 09/26/20 04:00 82 09/26/20 00:00 97.2 85 20 142/70 (94) 100 09/26/20 00:00 85 09/25/20 21:00 Nasal Cannula 2.0 09/25/20 20:00 97.4 87 20 142/64 (90) 99 09/25/20 20:00 86 09/25/20 18:57 97 Nasal Cannula 2.0 28 09/25/20 16:00 85 09/25/20 16:00 98.1 77 19 127/77 (94) 99 Intake and Output 09/25/20 09/26/20 19:00 07:00 Intake Total 840 ml 300 ml Balance 840 ml 300 ml Intake Oral 840 ml 300 ml # Voids 1 # Bowel Movements 2 3 Laboratory Tests 09/25/20 17:07: POC Whole Blood Glucose 113H 09/25/20 20:22: POC Whole Blood Glucose 157H 09/26/20 06:44: White Blood Count 15.7H, Red Blood Count 2.87L, Hemoglobin 9.3L, Hematocrit 31.3L, Mean Corpuscular Volume 109H, Mean Corpuscular Hemoglobin 32.5H, Mean Corpuscular Hemoglobin Concent 29.8L, Red Cell Distribution Width 17.7H, Plate let Count 322, Mean Platelet Volume 6.5, Neutrophils (%) (Auto) 82.9H, Lymphocytes (%) (Auto) 8.1L, Monocytes (%) (Auto) 8.0, Eosinophils (%) (Auto) 0.3, Basophils (%) (Auto) 0.7, Sodium Level 135L, Potassium Level 4.7, Chloride Level 101, Carbon Dioxide Level 27, Anion Gap 7, Blood Urea Nitrogen 52H, Creatinine 5.5H, Estimat Glomerular Filtration Rate 7.6, Glucose Level 125H, Uric Acid 5.8, Calcium Level 7.8L, Phosphorus Level 3.1, Total Bilirubin 0.4, Gamma Glutamyl Transpeptidase 37, Aspartate Amino Transf (AST/SGOT) 9L, Alanine Aminotransferase (ALT/SGPT) < 6L, Alkaline Phosphatase 127H, C-Reactive Protein, Quantitative 12.0H, Pro-B-Type Natriuretic Peptide > 89888A, Total Protein 5.9L, Albumin 2.0L, Globulin 3.9, Albumin/Globulin Ratio 0.5L, Carcinoembryonic Antigen [Pending] 09/26/20 08:06: POC Whole Blood Glucose 132H Height (Feet): 5 Height (Inches): 0.00 Weight (Pounds): 96 General Appearance: alert EENT: PERRL/EOMI Neck: non-tender, supple Cardiovascular: normal rate Respiratory/Chest: lungs clear Abdomen: non tender, soft Extremities: non-tender Edema: trace edema Assessment/Plan Assessment/Plan: 1 chf combined acute 2 fluid overlad 3 htn 4 c diff colitis 5 faiure of thrive 6 severe malnutrition 7 possible lung ca dw dr enriquez contact isolation cardio on case consider pulmo and id consult Cesar Swanson MD Sep 26, 2020 12:19
--- NOTE | 2020-09-26 13:31 | NUR ---
CASE MANAGEMENT:REVIEW 09/26/20 SI: PNA. C-DIFFF COLITIS 96.8 70 19 130/86 96% ON 2L/NC WBC+15.7 BUN+52 CR+5.5 IS: IV ROCEPHIN Q24 VANCOMYCIN PO QID LACTOBACILLUS PO TID RENVELA PO TID PROTONIX PO BID NEPHROVITE PO QD : TELEMETRY STATUS DCP: FROM [facility]
[2020-09-26 16:00] VITALS: BP 139/79
[2020-09-26] MEDS: cefTRIAXone 1 GM in D5W 55 ML IVPB SCH (16:28)
--- NOTE | 2020-09-26 19:00 | NUR ---
NURSE NOTES: RECEIVED REPORT FROM ZENAIDA CASTRO. PATIENT ASLEEP, EASILY AROUSABLE AND OPENS EYES SPONTANEOUSLY- PATIENT VERBALLY RESPONSIVE, PRIMARILY IN CAMEROONIAN. NO COMPLAINTS OF PAIN OR DISCOMFORT AT THIS TIME. BREATHING EVEN AND UNLABORED ON 2LPM VIA NC, NO S/SX OF DISTRESS NOTED. IV SITE ON RIGHT HAND PATENT, INTACT, ASYMPTOMATIC, AND SALINE-LOCKED. VINCE AV SHUNT NOTED, COVERED IN DRESSING- BRUIT AND THRILL PRESENT; LEFT ARM PRECAUTIONS MAINTAINED. NOTED TO HAVE LEFT UPPER CHEST PERMACATH- ASYMPTOMATIC. SCDS NOTED TO BE ON. FALL AND ASPIRATION PRECAUTIONS IN PLACE. CONTACT ISOLATION IMPLEMENTED. BED LOCKED AND IN LOWEST POSITION, SIDERAILS UP X 3. CALL LIGHT WITHIN REACH, WILL CONTINUE TO MONITOR PER POC.
--- NOTE | 2020-09-26 19:10 | NUR ---
NURSE HAND-OFF REPORT: Important Events on Shift: Dialyzed 1L out, for transfer to [facility] pending room Patient Status: Stable Diet: Renal, mechanical soft Pending Orders: Transfer to [facility] Pending Results/Labs:None Pending MD notification: None Latest Vital Signs: Temperature 96.7 , Pulse 81 , B/P 139 /79 , Respiratory Rate 21 , O2 SAT 97 , Nasal Cannula, O2 Flow Rate 2.0 . Vital Sign Comment: EKG Rhythm: Sinus Rhythm Rhythm change?: N MD Notified?: - MD Response: Latest Ness Fall Score: 70 Fall Risk: High Risk Safety Measures: Call light Within Reach, Bed Alarm Zone 1, Side Rails Side Rails x3, Bed position Low and Locked. Fall Precautions: Yellow Socks Yellow Gown Door Sign Patient Fall Education Report given to Aleshia ESTEVEZ.
[2020-09-26 20:00] VITALS: BP 143/70
--- NOTE | 2020-09-26 22:53 | NUR ---
NURSE NOTES: CONTINUATION FROM SHIFT PHYSICAL FOR WOUND ASSESSMENT: 1) SACRAL STAGE II- 3.0X0.5X0.1CM, SCANT SEROSANGUINEOUS DRAINAGE; SKIN BARRIER AND CALAZIME CREAM APPLIED, DRESSING CHANGED USING OPTIFOAM. 2) RIGHT ANKLE STAGE I- 1.8X2.0CM, NO DRAINAGE, OPTIFOAM IN PLACE (DRY AND INTACT).
--- NOTE | 2020-09-26 23:25 | NUR ---
INTER-FACILITY TRANSFER: Patient transferred to ROOM 405-2 PER MD ORDER. Report given to ZENAIDA BLACK. Patient transferred with valuables and medications. Belongings verified upon TRANSFER and given to ZENAIDA BLACK. Family/S.O. notified of transfer.
--- NOTE | 2020-09-26 23:49 | NUR ---
NURSE NOTES: Patient came from Tele unit. Report from Aleshia ESTEVEZ. A&OX2. NC 2L on, no s/s of respiratory distress noted. No belongings noted. IV site patent and intact. Left chest perma cath noted. AV shunt noted on left upper arm. Wound noted on sacral area and right foot, picture taken, dressing changed. Bed in lowest position. Call light within reach. Will continue to monitor.
[2020-09-27] VITALS: BP 144/61
[2020-09-27 04:00] VITALS: BP 150/62
--- NOTE | 2020-09-27 07:22 | NUR ---
NURSE HAND-OFF: Important Events on Shift: Left arm precaution. Patient Status: Diet: Renal Pending Orders: Pending Results/Labs: Pending MD notification: Latest Vital Signs: Temperature 98.3 , Pulse 77 , B/P 150 /62 , Respiratory Rate 20 , O2 SAT 95 , Nasal Cannula, O2 Flow Rate 2.0 . Vital Sign Comment: Latest Ness Fall Score: 70 Fall Risk: High Risk Safety Measures: Call light Within Reach, Bed Alarm Zone 1, Side Rails Side Rails x3, Bed position Low and Locked. Fall Precautions: Yellow Socks Yellow Gown Door Sign Patient Fall Education Report given to Caroline ESTEVEZ.
--- NOTE | 2020-09-27 07:23 | NUR ---
NURSE NOTES: Patient received from ZENAIDA Jay. Patient awake in bed, alert and oriented x 2, verbal and able to make needs known, skin warm and dry to touch, no SOB, bed in lowest position with breaks engaged and alarm on, IV line patent and intact, on 02 via NC at 2 lpm, L chest permacath present with no bleeding. Denies any pain or discomfort at this time. Will continue to monitor and proceed with plan of care, call light within reach at all times.
[2020-09-27 08:00] VITALS: BP 119/71
--- NOTE | 2020-09-27 08:27 | NUR ---
RD ASSESSMENT & RECOMMENDATIONS SEE CARE ACTIVITY FOR COMPLETE ASSESSMENT DAILY ESTIMATED NEEDS: Needs based on ESRD on HD 44kg 30-35 kcals/kg 1319-0409 total kcals 1.25-1.8 g protein/kg 55-79 g total protein Fluid per MD, on HD mL/kg total fluid mLs NUTRITION DIAGNOSIS: Increased kcal and pro needs r/t renal dysfunction as evidenced by pt w/ ESRD on HD. CURRENT DIET: Renal ms ground PO DIET RECOMMENDATIONS: Maintain renal diet/ texture per affiliate marketing specialist ADDITIONAL RECOMMENDATIONS: 1) Daily wts, calibrated bed scale 2) Rec ENGINEERING RECRUITER eval for appropriate texture 3) Add NEPRO BID (425 kcal/ 19g pro each) 4) Monitor BG-> POC glu-> am BG low 72 W/ variable po intake pt at risk for hypoglycemia Snacks in b/w meals as tolerated 5) Maintain nephrovite and vit C for skin integrity; add RADHA BID
[2020-09-27] MEDS: Ascorbic Acid 500mg tab ORAL SCH ×2 (08:52→17:31)
[2020-09-27] MEDS: Nephrovite tab (Rena-Vite) ORAL SCH (08:53)
[2020-09-27] MEDS: Lactobacillus-GG tablet ORAL SCH ×3 (08:53→17:34)
[2020-09-27] MEDS: Citalopram Hydrobromide 10mg Tab ORAL SCH (08:53)
[2020-09-27] MEDS: Vancomycin oral 125mg/2.5ml ORAL SCH ×4 (08:54→20:47)
[2020-09-27] MEDS: NovoLOG Insulin Flexpen SUBQ SCH ×2 (08:58→17:33)
--- NOTE | 2020-09-27 09:31 | Pulmonology Progress Note ---
Subjective ROS Limited/Unobtainable: Yes Interval Events: None new Constitutional: Denies: fever HEENT: Repors: no symptoms Respiratory: Reports: no symptoms Cardiovascular: Reports: no symptoms Gastrointestinal/Abdominal: Reports: diarrhea Genitourinary: Reports: no symptoms Neurologic: Reports: no symptoms Musculoskeletal: Reports: pain - abdominal Allergies: Coded Allergies: No Known Allergies (Unverified , 09/23/20) Objective Last 24 Hour Vital Signs Date Time Temp Pulse Resp B/P (MAP) Pulse Ox O2 Delivery O2 Flow Rate FiO2 09/27/20 09:00 Nasal Cannula 2.0 09/27/20 08:00 98.5 19 119/71 (87) 97 09/27/20 04:00 98.3 77 20 150/62 (91) 95 09/27/20 00:00 98.2 83 20 144/61 (88) 96 09/26/20 23:54 Nasal Cannula 2.0 09/26/20 21:00 81 09/26/20 21:00 Nasal Cannula 2.0 09/26/20 20:58 99 Nasal Cannula 2.0 28 09/26/20 20:00 97.9 82 20 143/70 (94) 100 09/26/20 16:00 81 09/26/20 16:00 96.7 102 21 139/79 (99) 97 09/26/20 12:00 96.8 70 19 130/86 (101) 96 09/26/20 12:00 84 Intake and Output 09/26/20 09/27/20 19:00 07:00 Intake Total 140 ml 240 ml Output Total 2200 ml Balance -2060 ml 240 ml Intake Oral 140 ml 240 ml Output Urine Total 1200 ml Hemodialysis UF 1000 ml # Voids 3 # Bowel Movements 3 General Appearance: no acute distress HEENT: normocephalic Respiratory: chest wall non-tender, lungs clear Cardiovascular: normal peripheral pulses, normal rate Abdomen: normal bowel sounds Laboratory Tests 09/26/20 17:28: POC Whole Blood Glucose 151H 09/27/20 08:56: POC Whole Blood Glucose 146H Current Medications Medications (Trade) Dose Ordered Sig/Yeimi Route PRN Reason Start Time Stop Time Status Last Admin Dose Admin Acetaminophen (Tylenol) 650 mg Q4H PRN ORAL Temp >100.5 09/24/20 10:30 10/24/20 10:29 Ascorbic Acid (Vitamin C) 250 mg BID ORAL 09/24/20 18:00 10/24/20 17:59 09/27/20 08:52 Ceftriaxone Sodium 1 gm/ Dextrose 55 ml @ 110 mls/hr Q24H IVPB 09/24/20 12:00 10/01/20 11:59 09/26/20 16:28 Citalopram Hydrobromide (CeleXA) 20 mg DAILY ORAL 09/25/20 09:00 10/25/20 08:59 09/27/20 08:53 Dextrose (Dextrose 50%) 25 ml Q30M PRN IV Hypoglycemia 09/24/20 21:15 12/23/20 21:14 Dextrose (Dextrose 50%) 50 ml Q30M PRN IV Hypoglycemia 09/24/20 21:15 12/23/20 21:14 Gabapentin (Neurontin) 100 mg THREE TIMES A DAY ORAL 09/24/20 13:00 10/24/20 12:59 09/27/20 08:53 Insulin Aspart (NovoLOG) BID SUBQ 09/25/20 09:00 12/24/20 08:59 09/27/20 08:58 Lactobacillus Acidophilus (Culturelle) 1 tab THREE TIMES A DAY ORAL 09/25/20 18:00 12/24/20 17:59 09/27/20 08:53 Pantoprazole (Protonix) 40 mg BID ORAL 09/25/20 18:00 10/25/20 08:59 09/27/20 08:52 Sevelamer Carbonate (Renvela) 1,600 mg THREE TIMES A DAY ORAL 09/25/20 18:00 12/23/20 12:59 09/27/20 08:53 Vancomycin HCl (Firvanq) 250 mg FOUR TIMES A DAY ORAL 09/24/20 13:00 10/07/20 23:59 09/27/20 08:54 Vitamin B Complex/ Vit C/Folic Acid (Nephrovite) 1 tab DAILY ORAL 09/25/20 09:00 10/25/20 08:59 09/27/20 08:53 Assessment/Plan Assessment/Plan IMPRESSION: 1. Pleural effusions; small bilateral 2. ESRD, on dialysis. 3. Diabetes mellitus. 4. Hypertension. 5 R hilar mass with bilateral pulmonary nodules DISCUSSION: Reviewed CT chest. Continue other home medications and dialysis. I will follow carefully. The etiology of her effusion and soft-tissue mass needs to be elucidated. I have attempted to call family/next of kin but no response OK to dc back to SNF Outpatient workup if family agrees Naman Krause M.D. Naman Krause MD Sep 27, 2020 09:31
--- NOTE | 2020-09-27 10:39 | General Progress Note ---
Subjective Allergies: Coded Allergies: No Known Allergies (Unverified , 09/23/20) Subjective looks dry sob better isolation Objective Last 24 Hour Vital Signs Date Time Temp Pulse Resp B/P (MAP) Pulse Ox O2 Delivery O2 Flow Rate FiO2 09/27/20 09:00 Nasal Cannula 2.0 09/27/20 08:00 98.5 19 119/71 (87) 97 09/27/20 04:00 98.3 77 20 150/62 (91) 95 09/27/20 00:00 98.2 83 20 144/61 (88) 96 09/26/20 23:54 Nasal Cannula 2.0 09/26/20 21:00 81 09/26/20 21:00 Nasal Cannula 2.0 09/26/20 20:58 99 Nasal Cannula 2.0 28 09/26/20 20:00 97.9 82 20 143/70 (94) 100 09/26/20 16:00 81 09/26/20 16:00 96.7 102 21 139/79 (99) 97 09/26/20 12:00 96.8 70 19 130/86 (101) 96 09/26/20 12:00 84 Intake and Output 09/26/20 09/27/20 19:00 07:00 Intake Total 140 ml 240 ml Output Total 2200 ml Balance -2060 ml 240 ml Intake Oral 140 ml 240 ml Output Urine Total 1200 ml Hemodialysis UF 1000 ml # Voids 3 # Bowel Movements 3 Laboratory Tests 09/26/20 17:28: POC Whole Blood Glucose 151H 09/27/20 08:56: POC Whole Blood Glucose 146H Height (Feet): 5 Height (Inches): 0.00 Weight (Pounds): 96 General Appearance: alert EENT: PERRL/EOMI Neck: supple Cardiovascular: regular rhythm Respiratory/Chest: crackles/rales Abdomen: non tender, soft Extremities: non-tender Assessment/Plan Assessment/Plan: 1 chf combined acute 2 fluid overlad 3 htn 4 c diff colitis 5 faiure of thrive 6 severe malnutrition [address] ca dw dr enriquez contact isolation cardio on case pt/ot Cesar Swanson MD Sep 27, 2020 10:39
--- NOTE | 2020-09-27 10:49 | Nephrology Progress Note ---
Assessment/Plan Problem List: (1) ESRD (end stage renal disease) (2) Diarrhea (3) C. difficile colitis (4) Diastolic CHF, chronic Assessment End-stage renal disease on hemodialysis 3 times a week Patient has a left upper chest permacath for dialysis access Patient has C. difficile colitis and watery diarrhea History of hypertension History of diabetes History of hyperlipemia History of cardiomyopathy, congestive heart failure Plan September 27: No can panel today. Dialyzed yesterday. Consultants notes reviewed. Medication reviewed. Check labs tomorrow. Dialysis as needed. September 26: Labs checked today. Due for dialysis today. Continue per consultants. Medications reviewed. Subjective ROS Limited/Unobtainable: No Constitutional: Reports: malaise, weakness Objective Objective Last 24 Hour Vital Signs Date Time Temp Pulse Resp B/P (MAP) Pulse Ox O2 Delivery O2 Flow Rate FiO2 09/27/20 09:00 Nasal Cannula 2.0 09/27/20 08:00 98.5 19 119/71 (87) 97 09/27/20 04:00 98.3 77 20 150/62 (91) 95 09/27/20 00:00 98.2 83 20 144/61 (88) 96 09/26/20 23:54 Nasal Cannula 2.0 09/26/20 21:00 81 09/26/20 21:00 Nasal Cannula 2.0 09/26/20 20:58 99 Nasal Cannula 2.0 28 09/26/20 20:00 97.9 82 20 143/70 (94) 100 09/26/20 16:00 81 09/26/20 16:00 96.7 102 21 139/79 (99) 97 09/26/20 12:00 96.8 70 19 130/86 (101) 96 09/26/20 12:00 84 Intake and Output 09/26/20 09/27/20 19:00 07:00 Intake Total 140 ml 240 ml Output Total 2200 ml Balance -2060 ml 240 ml Intake Oral 140 ml 240 ml Output Urine Total 1200 ml Hemodialysis UF 1000 ml # Voids 3 # Bowel Movements 3 Laboratory Tests 09/26/20 17:28: POC Whole Blood Glucose 151H 09/27/20 08:56: POC Whole Blood Glucose 146H Height (Feet): 5 Height (Inches): 0.00 Weight (Pounds): 96 General Appearance: no apparent distress, lethargic Cardiovascular: normal rate Respiratory/Chest: decreased breath sounds Abdomen: soft Chris Puckett MD Sep 27, 2020 10:49
--- NOTE | 2020-09-27 11:04 | Infectious Diseases Prog Note ---
Assessment/Plan Assessment/Plan antibiotics : ceftriaxone, po vancomycin A 1. Pneumonia COVID-19 negative. 2. Diabetes. 3. Hypertension. 4. Renal failure on dialysis. 5. C. difficile colitis 6. metastatic cancer 7. leucocytosis increasing P 1. d/c ceftriaxone 2. start zosyn 3. continue po vancomycin 10 more days 4. will follow up cultures Subjective ROS Limited/Unobtainable: Yes Allergies: Coded Allergies: No Known Allergies (Unverified , 09/23/20) Objective Last 24 Hour Vital Signs Date Time Temp Pulse Resp B/P (MAP) Pulse Ox O2 Delivery O2 Flow Rate FiO2 09/27/20 09:00 Nasal Cannula 2.0 09/27/20 08:00 98.5 19 119/71 (87) 97 09/27/20 04:00 98.3 77 20 150/62 (91) 95 09/27/20 00:00 98.2 83 20 144/61 (88) 96 09/26/20 23:54 Nasal Cannula 2.0 09/26/20 21:00 81 09/26/20 21:00 Nasal Cannula 2.0 09/26/20 20:58 99 Nasal Cannula 2.0 28 09/26/20 20:00 97.9 82 20 143/70 (94) 100 09/26/20 16:00 81 09/26/20 16:00 96.7 102 21 139/79 (99) 97 09/26/20 12:00 96.8 70 19 130/86 (101) 96 09/26/20 12:00 84 Height (Feet): 5 Height (Inches): 0.00 Weight (Pounds): 96 Respiratory/Chest: lungs clear Cardiovascular: normal rate, regular rhythm, no gallop/murmur Abdomen: soft, non tender Extremities: no edema Laboratory Tests Test 09/26/20 17:28 09/27/20 08:56 POC Whole Blood Glucose 151 MG/DL (74-106) H 146 MG/DL (74-106) H Current Medications Medications (Trade) Dose Ordered Sig/Yeimi Route PRN Reason Start Time Stop Time Status Last Admin Dose Admin Acetaminophen (Tylenol) 650 mg Q4H PRN ORAL Temp >100.5 09/24/20 10:30 10/24/20 10:29 Ascorbic Acid (Vitamin C) 250 mg BID ORAL 09/24/20 18:00 123/20 17:59 09/27/20 08:52 Ceftriaxone Sodium 1 gm/ Dextrose 55 ml @ 110 mls/hr Q24H IVPB 09/24/20 12:00 10/01/20 11:59 09/26/20 16:28 Citalopram Hydrobromide (CeleXA) 20 mg DAILY ORAL 09/25/20 09:00 10/25/20 08:59 09/27/20 08:53 Dextrose (Dextrose 50%) 25 ml Q30M PRN IV Hypoglycemia 09/24/20 21:15 12/23/20 21:14 Dextrose (Dextrose 50%) 50 ml Q30M PRN IV Hypoglycemia 09/24/20 21:15 12/23/20 21:14 Gabapentin (Neurontin) 100 mg THREE TIMES A DAY ORAL 09/24/20 13:00 10/24/20 12:59 09/27/20 08:53 Insulin Aspart (NovoLOG) BID SUBQ 09/25/20 09:00 12/24/20 08:59 09/27/20 08:58 Lactobacillus Acidophilus (Culturelle) 1 tab THREE TIMES A DAY ORAL 09/25/20 18:00 12/24/20 17:59 09/27/20 08:53 Pantoprazole (Protonix) 40 mg BID ORAL 09/25/20 18:00 10/25/20 08:59 09/27/20 08:52 Sevelamer Carbonate (Renvela) 1,600 mg THREE TIMES A DAY ORAL 09/25/20 18:00 12/23/20 12:59 09/27/20 08:53 Vancomycin HCl (Firvanq) 250 mg FOUR TIMES A DAY ORAL 09/24/20 13:00 10/07/20 23:59 09/27/20 08:54 Vitamin B Complex/ Vit C/Folic Acid (Nephrovite) 1 tab DAILY ORAL 09/25/20 09:00 10/25/20 08:59 09/27/20 08:53 Erika Stiles MD Sep 27, 2020 11:04
[2020-09-27 12:00] VITALS: BP 141/72
[2020-09-27] MEDS: Piperacillin/Tazobactam 2.25 GM in NS 55 ML IV SCH ×2 (13:24→22:37)
[2020-09-27] MEDS ORDERED: Piperacillin/Tazobactam 3.375 GM in NS 110 ML IVPB SCH (14:00)
--- NOTE | 2020-09-27 14:37 | NUR ---
CASE MANAGEMENT:REVIEW SI;PNA. C-DIFFF COLITIS. 98.9 83 20 150/62 95% 2L NC NO LABS AVAILABLE IS;ZOSYN IV Q8 CULTURELLE PO TID PROTONIX PO BIS NEPHROVITE PO QD VANCOMYCIN PO QID MED SURG STATUS DCP;FROM [facility] PLAN; CONTINUE PO VANCO FOR 10 MORE DAYS
[2020-09-27 16:00] VITALS: BP 137/79
--- NOTE | 2020-09-27 19:00 | NUR ---
NURSE NOTES: RECEIVED PATIENT LYING IN BED, AWAKE, EYES OPEN, [place] SPEAKING, ABLE TO MAKE SIMPLE NEEDS KNOWN IN SWEDISH, DENIES PAIN, NO PERIPHERAL EDEMA NOTED. NO SIGNS AND SYMPTOMS OF ACUTE CARDIO RESPIRATORY DISTRESS/SHORTNESS OF BREATH, DENIES CHEST PAIN, NO PERIPHERAL EDEMA NOTED. AV SHUNT INTACT TO LEFT UPPER ARM/CLOTTED, HD CATHETER TO LEFT CHEST WALL, LAST HD 09/26, REMOVED 1l. ABDOMEN SOFT/NON DISTENDED/BOWELS AUDIBLE, NOTED WITH MODERATE AMOUNT OF SOFT STOOL, INCONTINENT CARE PROVIDED, ASSISTED WITH REPOSITIONING, TOLERATED WELL. SIDE RAILS UP X3/BED IN LOWEST POSITION FOR SAFETY, CALL LIGHT WITHIN REACH, FREQUENT ROUNDING FOR SAFETY/NEEDS. CONTINUE WITH CURRENT PLAN OF CARE. NAD.
--- NOTE | 2020-09-27 19:21 | NUR ---
NURSE HAND-OFF: Important Events on Shift:[monitoring VS and labs, safety and comfort, IV ATBS] Patient Status: [stable] Diet: [renal] Pending Orders: [] Pending Results/Labs:[] Pending MD notification:[] Latest Vital Signs: Temperature 97.9 , Pulse 77 , B/P 137 /79 , Respiratory Rate 19 , O2 SAT 99 , Nasal Cannula, O2 Flow Rate 2.0 . Vital Sign Comment: [] Latest Ness Fall Score: 70 Fall Risk: High Risk Safety Measures: Call light Within Reach, Bed Alarm Zone 1, Side Rails Side Rails x3, Bed position Low and Locked. Fall Precautions: Yellow Socks Yellow Gown Door Sign Patient Fall Education Report given to [ROXANNE Strong].
[2020-09-27 20:00] VITALS: BP 151/73
--- NOTE | 2020-09-27 23:49 | Psychiatric Progress Note ---
Psychiatry Progress Note Psychiatry Progress Note Medications Current Medications Medications (Trade) Dose Ordered Sig/Yeimi Route PRN Reason Start Time Stop Time Status Last Admin Dose Admin Acetaminophen (Tylenol) 650 mg Q4H PRN ORAL Temp >100.5 09/24/20 10:30 10/24/20 10:29 Ascorbic Acid (Vitamin C) 250 mg BID ORAL 09/24/20 18:00 10/24/20 17:59 09/27/20 17:31 Citalopram Hydrobromide (CeleXA) 20 mg DAILY ORAL 09/25/20 09:00 10/25/20 08:59 09/27/20 08:53 Dextrose (Dextrose 50%) 25 ml Q30M PRN IV Hypoglycemia 09/24/20 21:15 12/23/20 21:14 Dextrose (Dextrose 50%) 50 ml Q30M PRN IV Hypoglycemia 09/24/20 21:15 12/23/20 21:14 Gabapentin (Neurontin) 100 mg THREE TIMES A DAY ORAL 09/24/20 13:00 10/24/20 12:59 09/27/20 17:31 Insulin Aspart (NovoLOG) BID SUBQ 09/25/20 09:00 12/24/20 08:59 09/27/20 08:58 Lactobacillus Acidophilus (Culturelle) 1 tab THREE TIMES A DAY ORAL 09/25/20 18:00 12/24/20 17:59 09/27/20 17:34 Pantoprazole (Protonix) 40 mg BID ORAL 09/25/20 18:00 10/25/20 08:59 09/27/20 17:31 Piperacillin Sod/ Tazobactam Sod 2.25 gm/Sodium Chloride 55 ml @ 110 mls/hr Q8HR IV 09/27/20 14:00 10/02/20 13:59 09/27/20 22:37 Sevelamer Carbonate (Renvela) 1,600 mg THREE TIMES A DAY ORAL 09/25/20 18:00 12/23/20 12:59 09/27/20 17:31 Vancomycin HCl (Firvanq) 250 mg FOUR TIMES A DAY ORAL 09/24/20 13:00 10/07/20 23:59 09/27/20 20:47 Vitamin B Complex/ Vit C/Folic Acid (Nephrovite) 1 tab DAILY ORAL 09/25/20 09:00 10/25/20 08:59 09/27/20 08:53 Neurological/Psychiatric: Reports: anxiety, depressed, emotional problems, weakness Allergies: Coded Allergies: No Known Allergies (Unverified , 09/23/20) Objective Data Height (Feet): 5 Height (Inches): 0.00 Weight (Pounds): 96 General Appearance: no apparent distress, lethargic Additional Comments: alert, oriented times self, place. Mood is agitated. Affect is flat. Thought process, there is a paucity of thought content. Thought content, no suicidal or homicidal ideation. Cognition is impaired. Insight and judgment is impaired. Assessment/Plan [place] I: ASSESSMENT: Green[place] I Dementia. Anxiety disorder. Rule out acute metabolic encephalopathy. [place] II Deferred. [place] III As above. [place] IV Low. [place] V 20. PLAN: 1. Celexa 20 mg. 2. Haldol IM p.r.n. for agitation. 3. Discussed with the nurse. Status Narrative ASSESSMENT: [place] I Dementia. Anxiety disorder. Rule out acute metabolic encephalopathy. [place] II Deferred. [place] III As above. Greencastle IV Low. [place] V 20. PLAN: 1. Celexa 20 mg. 2. Haldol IM p.r.n. for agitation. 3. Discussed with the nurse. Assessment/Plan: ASSESSMENT: Green[place] I Dementia. Anxiety disorder. Rule out acute metabolic encephalopathy. Green[place] II Deferred. Green[place] III As above. Green[place] IV Low. [place] V 20. PLAN: 1. Celexa 20 mg. 2. Haldol IM p.r.n. for agitation. 3. Discussed with the nurse. Lona Tarango MD Sep 27, 2020 23:49
[2020-09-28] VITALS: BP 161/77
[2020-09-28 04:00] VITALS: BP 150/70
--- NOTE | 2020-09-28 05:18 | NUR ---
NURSE NOTES: PATIENT NOTED WITH MODERATE AMOUNT OF BROWN SOFT STOOL WITH STREAKS OF BLOOD, NO CLOTS NOTED, INCONTINENT CARE PROVIDED, REPOSITIONED.
--- NOTE | 2020-09-28 05:58 | NUR ---
NURSE NOTES: RESTED WELL,SAFETY MAINTAINED. NAD.
[2020-09-28] MEDS: Piperacillin/Tazobactam 2.25 GM in NS 55 ML IV SCH ×3 (06:14→21:36)
[2020-09-28 07:09] LABS: BASOPHILS % (AUTO) 0.7 % (0.0-2.0); EOSINOPHILS % (AUTO) 0.8 % (0.0-3.0); HEMATOCRIT 30.3 % (37.0-47.0); HEMOGLOBIN 8.9 G/DL (12.0-16.0); LYMPHOCYTES % (AUTO) 13.4 % (20.0-45.0); MEAN CORPUSCULAR VOLUME 109 FL (80-99); MONOCYTES % (AUTO) 10.8 % (1.0-10.0); NEUTROPHILS % (AUTO) 74.3 % (45.0-75.0); PLATELET COUNT 292 K/UL (150-450); RED BLOOD COUNT 2.79 M/UL (4.20-5.40); RED CELL DISTRIBUTION WIDTH 18.2 % (11.6-14.8); WHITE BLOOD COUNT 9.5 K/UL (4.8-10.8)
--- NOTE | 2020-09-28 07:25 | NUR ---
NURSE NOTES: RECEIVED PATIENT LYING IN BED, A/A/OX3, FORGETFULNESS. ALBANIAN SPEAKING BUT ABLE TO FOLLOW COMMANDS. VERBALLY RESPONSIVE. DENIES PAIN. NO SIGNS AND SYMPTOMS OF ACUTE CARDIO-RESPIRATORY DISTRESS/SHORTNESS OF BREATH, NO PERIPHERAL EDEMA NOTED. ABDOMEN SOFT/NON DISTENDED/AUDIBLE BOWEL SOUNDS, NO HYATT CATHETER INTACT/PATENT, DRAINING YELLOW URINE VIA GRAVITY. DRAINAGE BAG POSITIONED BELOW LEVEL OF WAIST TO PREVENT URINE BACKFLOW. SIDERAILS UP X3. BED IN LOWEST POSITION FOR SAFETY, CALL LIGHT WITHIN REACH, BED ALARM AND LOCK ENGAGED. FREQUENT ROUNDING FOR SAFETY/NEEDS. CONTINUE WITH CURRENT PLAN OF CARE.
[2020-09-28 07:43] LABS: ALANINE AMINOTRANSFERASE < 6 U/L (12-78); ALBUMIN/GLOBULIN RATIO 0.5 (1.0-2.7); ALKALINE PHOSPHATASE 113 U/L (46-116); ANION GAP 8 mmol/L (5-15); ASPARTATE AMINO TRANSFERASE 9 U/L (15-37); BILIRUBIN,TOTAL 0.4 MG/DL (0.2-1.0); BLOOD UREA NITROGEN 32 mg/dL (7-18); CALCIUM 8.5 MG/DL (8.5-10.1); CARBON DIOXIDE 29 MMOL/L (21-32); CHLORIDE 104 MMOL/L (98-107); CREATININE 4.4 MG/DL (0.55-1.30); PHOSPHORUS 3.7 MG/DL (2.5-4.9); POTASSIUM 3.8 MMOL/L (3.5-5.1); SODIUM 141 MMOL/L (136-145)
[2020-09-28 08:00] VITALS: BP 147/72
--- NOTE | 2020-09-28 08:00 | NUR ---
NURSE NOTES: DR ESCOBEDO CALLED BACK AND MADE AWARE OF THE STREAKS OF BLOOD IN STOOL. NEW ORDER OBTAINED. WILL CONT TO MONITOR.
[2020-09-28] MEDS: Ascorbic Acid 500mg tab ORAL SCH ×2 (08:42→17:42)
[2020-09-28] MEDS: Citalopram Hydrobromide 10mg Tab ORAL SCH (08:42)
[2020-09-28] MEDS: Nephrovite tab (Rena-Vite) ORAL SCH (08:42)
[2020-09-28] MEDS: Vancomycin oral 125mg/2.5ml ORAL SCH ×4 (08:43→21:52)
[2020-09-28] MEDS: Lactobacillus-GG tablet ORAL SCH ×3 (08:43→17:42)
[2020-09-28] MEDS: NovoLOG Insulin Flexpen SUBQ SCH ×2 (08:45→17:45)
--- NOTE | 2020-09-28 09:58 | Pulmonology Progress Note ---
Subjective ROS Limited/Unobtainable: Yes Interval Events: None new Constitutional: Denies: fever HEENT: Repors: no symptoms Respiratory: Reports: no symptoms Cardiovascular: Reports: no symptoms Gastrointestinal/Abdominal: Reports: diarrhea Genitourinary: Reports: no symptoms Neurologic: Reports: no symptoms Musculoskeletal: Reports: pain - abdominal Allergies: Coded Allergies: No Known Allergies (Unverified , 09/23/20) Objective Last 24 Hour Vital Signs Date Time Temp Pulse Resp B/P (MAP) Pulse Ox O2 Delivery O2 Flow Rate FiO2 09/28/20 09:00 Nasal Cannula 2.0 09/28/20 08:00 97.7 78 17 147/72 (97) 94 09/28/20 04:00 98.5 84 18 150/70 (96) 98 09/28/20 00:00 99.1 85 20 161/77 (105) 98 09/27/20 21:00 Nasal Cannula 2.0 09/27/20 20:00 99.5 86 20 151/73 (99) 98 09/27/20 19:36 98 Nasal Cannula 2.0 28 09/27/20 16:00 97.9 19 137/79 (98) 99 09/27/20 12:00 98.9 19 141/72 (95) 99 Intake and Output 09/27/20 09/28/20 19:00 07:00 Intake Total 360 ml 60 ml Balance 360 ml 60 ml Intake Oral 360 ml 60 ml # Voids 2 1 # Bowel Movements 1 1 General Appearance: no acute distress HEENT: normocephalic Respiratory: chest wall non-tender, lungs clear Cardiovascular: normal peripheral pulses, normal rate Abdomen: normal bowel sounds Laboratory Tests 09/28/20 05:50: White Blood Count 9.5, Red Blood Count 2.79L, Hemoglobin 8.9L, Hematocrit 30.3L, Mean Corpuscular Volume 109H, Mean Corpuscular Hemoglobin 32.1H, Mean Corpuscular Hemoglobin Concent 29.5L, Red Cell Distribution Width 18.2H, Platelet Count 292, Mean Platelet Volume 6.4L, Neutrophils (%) (Auto) 74.3, Lymphocytes (%) (Auto) 13.4L, Monocytes (%) (Auto) 10.8H, Eosinophils (%) (Auto) 0.8, Basophils (%) (Auto) 0.7, Sodium Level 141, Potassium Level 3.8, Chloride Level 104, Carbon Dioxide Level 29, Anion Gap 8, Blood Urea Nitrogen 32H, Creatinine 4.4H, Estimat Glomerular Filtration Rate 9.7, Glucose Level 71L, Calcium Level 8.5, Phosphorus Level 3.7, Magnesium Level 2.2, Total Bilirubin 0.4, Aspartate Amino Transf (AST/SGOT) 9L, Alanine Aminotransferase (ALT/SGPT) < 6L, Alkaline Phosphatase 113, C-Reactive Protein, Quantitative 6.1H, Pro-B-Type Natriuretic Peptide > 09921H, Total Protein 5.9L, Albumin 2.0L, Globulin 3.9, Albumin/Globulin Ratio 0.5L 09/28/20 08:45: POC Whole Blood Glucose [Pending] Current Medications Medications (Trade) Dose Ordered Sig/Yeimi Route PRN Reason Start Time Stop Time Status Last Admin Dose Admin Acetaminophen (Tylenol) 650 mg Q4H PRN ORAL Temp >100.5 09/24/20 10:30 10/24/20 10:29 Ascorbic Acid (Vitamin C) 250 mg BID ORAL 09/24/20 18:00 10/24/20 17:59 09/28/20 08:42 Citalopram Hydrobromide (CeleXA) 20 mg DAILY ORAL 09/25/20 09:00 10/25/20 08:59 09/28/20 08:42 Dextrose (Dextrose 50%) 25 ml Q30M PRN IV Hypoglycemia 09/24/20 21:15 12/23/20 21:14 Dextrose (Dextrose 50%) 50 ml Q30M PRN IV Hypoglycemia 09/24/20 21:15 12/23/20 21:14 Gabapentin (Neurontin) 100 mg THREE TIMES A DAY ORAL 09/24/20 13:00 10/24/20 12:59 09/28/20 08:41 Insulin Aspart (NovoLOG) BID SUBQ 09/25/20 09:00 12/24/20 08:59 09/27/20 08:58 Lactobacillus Acidophilus (Culturelle) 1 tab THREE TIMES A DAY ORAL 09/25/20 18:00 12/24/20 17:59 09/28/20 08:43 Pantoprazole (Protonix) 40 mg BID ORAL 09/25/20 18:00 10/25/20 08:59 09/28/20 08:42 Piperacillin Sod/ Tazobactam Sod 2.25 gm/Sodium Chloride 55 ml @ 110 mls/hr Q8HR IV 09/27/20 14:00 10/02/20 13:59 09/28/20 06:14 Sevelamer Carbonate (Renvela) 1,600 mg THREE TIMES A DAY ORAL 09/25/20 18:00 12/23/20 12:59 09/28/20 08:42 Vancomycin HCl (Firvanq) 250 mg FOUR TIMES A DAY ORAL 09/24/20 13:00 10/07/20 23:59 09/28/20 08:43 Vitamin B Complex/ Vit C/Folic Acid (Nephrovite) 1 tab DAILY ORAL 09/25/20 09:00 10/25/20 08:59 09/28/20 08:42 Assessment/Plan Assessment/Plan IMPRESSION: 1. Pleural effusions; small bilateral 2. ESRD, on dialysis. 3. Diabetes mellitus. 4. Hypertension. 5 R hilar mass with bilateral pulmonary nodules DISCUSSION: Reviewed CT chest. Continue other home medications and dialysis. I will follow carefully. The etiology of her effusion and soft-tissue mass is not known I have attempted to call family/next of kin but no response OK to dc back to SNF Outpatient workup if family agrees Scott Dunn Omar Syed MD Sep 28, 2020 09:58
--- NOTE | 2020-09-28 11:21 | NUR ---
NURSE NOTES: MADE DR XIAO KNOW REGARDING STREAKS BLOOD IN STOOL. PATIENT IS CALM AND COMFORTABLE. NO NEW ORDER OBTAINED. WILL CONT TO MONITOR.
[2020-09-28 11:59] VITALS: BP 112/72
--- NOTE | 2020-09-28 11:59 | Nephrology Progress Note ---
Assessment/Plan Problem List: (1) ESRD (end stage renal disease) (2) Diarrhea (3) C. difficile colitis (4) Diastolic CHF, chronic Assessment End-stage renal disease on hemodialysis 3 times a week Patient has a left upper chest permacath for dialysis access Patient has C. difficile colitis and watery diarrhea History of hypertension History of diabetes History of hyperlipemia History of cardiomyopathy, congestive heart failure Plan September 28: Labs reviewed. Dialyzed September 26. Due for dialysis September 29 after reviewing the can panel. RN reports blood in the stool. GI consult/work- up in process. September 27: No can panel today. Dialyzed yesterday. Consultants notes reviewed. Medication reviewed. Check labs tomorrow. Dialysis as needed. September 26: Labs checked today. Due for dialysis today. Continue per consultants. Medications reviewed. Subjective ROS Limited/Unobtainable: No Constitutional: Reports: malaise, weakness Objective Objective Last 24 Hour Vital Signs Date Time Temp Pulse Resp B/P (MAP) Pulse Ox O2 Delivery O2 Flow Rate FiO2 09/28/20 09:00 Nasal Cannula 2.0 09/28/20 08:00 97.7 78 17 147/72 (97) 94 09/28/20 04:00 98.5 84 18 150/70 (96) 98 09/28/20 00:00 99.1 85 20 161/77 (105) 98 09/27/20 21:00 Nasal Cannula 2.0 09/27/20 20:00 99.5 86 20 151/73 (99) 98 09/27/20 19:36 98 Nasal Cannula 2.0 28 09/27/20 16:00 97.9 19 137/79 (98) 99 09/27/20 12:00 98.9 19 141/72 (95) 99 Intake and Output 09/27/20 09/28/20 19:00 07:00 Intake Total 360 ml 60 ml Balance 360 ml 60 ml Intake Oral 360 ml 60 ml # Voids 2 1 # Bowel Movements 1 1 Current Medications Medications (Trade) Dose Ordered Sig/Yeimi Route PRN Reason Start Time Stop Time Status Last Admin Dose Admin Acetaminophen (Tylenol) 650 mg Q4H PRN ORAL Temp >100.5 09/24/20 10:30 10/24/20 10:29 Ascorbic Acid (Vitamin C) 250 mg BID ORAL 09/24/20 18:00 10/24/20 17:59 09/28/20 08:42 Citalopram Hydrobromide (CeleXA) 20 mg DAILY ORAL 09/25/20 09:00 10/25/20 08:59 09/28/20 08:42 Dextrose (Dextrose 50%) 25 ml Q30M PRN IV Hypoglycemia 09/24/20 21:15 12/23/20 21:14 Dextrose (Dextrose 50%) 50 ml Q30M PRN IV Hypoglycemia 09/24/20 21:15 12/23/20 21:14 Gabapentin (Neurontin) 100 mg THREE TIMES A DAY ORAL 09/24/20 13:00 10/24/20 12:59 09/28/20 12:40 Insulin Aspart (NovoLOG) BID SUBQ 09/25/20 09:00 12/24/20 08:59 09/27/20 08:58 Lactobacillus Acidophilus (Culturelle) 1 tab THREE TIMES A DAY ORAL 09/25/20 18:00 12/24/20 17:59 09/28/20 12:40 Pantoprazole (Protonix) 40 mg BID ORAL 09/25/20 18:00 10/25/20 08:59 09/28/20 08:42 Piperacillin Sod/ Tazobactam Sod 2.25 gm/Sodium Chloride 55 ml @ 110 mls/hr Q8HR IV 09/27/20 14:00 10/02/20 13:59 09/28/20 14:27 Sevelamer Carbonate (Renvela) 1,600 mg THREE TIMES A DAY ORAL 09/25/20 18:00 12/23/20 12:59 09/28/20 12:40 Vancomycin HCl (Firvanq) 250 mg FOUR TIMES A DAY ORAL 09/24/20 13:00 10/07/20 23:59 09/28/20 12:40 Vitamin B Complex/ Vit C/Folic Acid (Nephrovite) 1 tab DAILY ORAL 09/25/20 09:00 10/25/20 08:59 09/28/20 08:42 Laboratory Tests 09/28/20 05:50: White Blood Count 9.5, Red Blood Count 2.79L, Hemoglobin 8.9L, Hematocrit 30.3L, Mean Corpuscular Volume 109H, Mean Corpuscular Hemoglobin 32.1H, Mean Corpuscular Hemoglobin Concent 29.5L, Red Cell Distribution Width 18.2H, Platelet Count 292, Mean Platelet Volume 6.4L, Neutrophils (%) (Auto) 74.3, Lymphocytes (%) (Auto) 13.4L, Monocytes (%) (Auto) 10.8H, Eosinophils (%) (Auto) 0.8, Basophils (%) (Auto) 0.7, Sodium Level 141, Potassium Level 3.8, Chloride Level 104, Carbon Dioxide Level 29, Anion Gap 8, Blood Urea Nitrogen 32H, Creatinine 4.4H, Estimat Glomerular Filtration Rate 9.7, Glucose Level 71L, Calcium Level 8.5, Phosphorus Level 3.7, Magnesium Level 2.2, Total Bilirubin 0.4, Aspartate Amino Transf (AST/SGOT) 9L, Alanine Aminotransferase (ALT/SGPT) < 6L, Alkaline Phosphatase 113, C-Reactive Protein, Quantitative 6.1H, Pro-B-Type Natriuretic Peptide > 60666U, Total Protein 5.9L, Albumin 2.0L, Globulin 3.9, Albumin/Globulin Ratio 0.5L 09/28/20 08:45: POC Whole Blood Glucose [Pending] Height (Feet): 5 Height (Inches): 0.00 Weight (Pounds): 96 General Appearance: no apparent distress, lethargic Cardiovascular: normal rate Respiratory/Chest: decreased breath sounds Abdomen: soft Chris Puckett MD Sep 28, 2020 11:59
--- NOTE | 2020-09-28 13:18 | General Progress Note ---
Subjective Allergies: Coded Allergies: No Known Allergies (Unverified , 09/23/20) Subjective looks dry sob better isolation rectal bleeding this am Objective Last 24 Hour Vital Signs Date Time Temp Pulse Resp B/P (MAP) Pulse Ox O2 Delivery O2 Flow Rate FiO2 09/28/20 11:59 97.8 79 18 112/72 (85) 93 09/28/20 09:00 Nasal Cannula 2.0 09/28/20 08:00 97.7 78 17 147/72 (97) 94 09/28/20 04:00 98.5 84 18 150/70 (96) 98 09/28/20 00:00 99.1 85 20 161/77 (105) 98 09/27/20 21:00 Nasal Cannula 2.0 09/27/20 20:00 99.5 86 20 151/73 (99) 98 09/27/20 19:36 98 Nasal Cannula 2.0 28 09/27/20 16:00 97.9 19 137/79 (98) 99 Intake and Output 09/27/20 09/28/20 19:00 07:00 Intake Total 360 ml 60 ml Balance 360 ml 60 ml Intake Oral 360 ml 60 ml # Voids 2 1 # Bowel Movements 1 1 Laboratory Tests 09/28/20 05:50: White Blood Count 9.5, Red Blood Count 2.79L, Hemoglobin 8.9L, Hematocrit 30.3L, Mean Corpuscular Volume 109H, Mean Corpuscular Hemoglobin 32.1H, Mean Corpuscular Hemoglobin Concent 29.5L, Red Cell Distribution Width 18.2H, Platelet Count 292, Mean Platelet Volume 6.4L, Neutrophils (%) (Auto) 74.3, Lymphocytes (%) (Auto) 13.4L, Monocytes (%) (Auto) 10.8H, Eosinophils (%) (Auto) 0.8, Basophils (%) (Auto) 0.7, Sodium Level 141, Potassium Level 3.8, Chloride Level 104, Carbon Dioxide Level 29, Anion Gap 8, Blood Urea Nitrogen 32H, Creatinine 4.4H, Estimat Glomerular Filtration Rate 9.7, Glucose Level 71L, Calcium Level 8.5, Phosphorus Level 3.7, Magnesium Level 2.2, Total Bilirubin 0.4, Aspartate Amino Transf (AST/SGOT) 9L, Alanine Aminotransferase (ALT/SGPT) < 6L, Alkaline Phosphatase 113, C-Reactive Protein, Quantitative 6.1H, Pro-B-Type Natriuretic Peptide > 02506G, Total Protein 5.9L, Albumin 2.0L, Globulin 3.9, Albumin/Globulin Ratio 0.5L 09/28/20 08:45: POC Whole Blood Glucose [Pending] Height (Feet): 5 Height (Inches): 0.00 Weight (Pounds): 96 General Appearance: confused, thin Neck: supple Cardiovascular: regular rhythm Respiratory/Chest: lungs clear Abdomen: normal bowel sounds, non tender, soft Neurologic: motor weakness Skin: warm/dry Assessment/Plan Assessment/Plan: 1 lgi bleeding with anemia 2 chf combined acute 3fluid overlad 4htn 5c diff colitis 6faiure of thrive 7severe malnutrition 8possible lung ca dw dr enriquez contact isolation cardio on case gi on the case fu labs Cesar Swanson MD Sep 28, 2020 13:18
--- NOTE | 2020-09-28 13:43 | Infectious Diseases Prog Note ---
Assessment/Plan Assessment/Plan A 1. Pneumonia COVID-19 negative. 2. Diabetes. 3. Hypertension. 4. Renal failure on dialysis. 5. C. 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 continue Zosyn 2. continue po vancomycin 9 more days 3. will follow up cultures Subjective ROS Limited/Unobtainable: Yes Constitutional: Reports: no symptoms Respiratory: Reports: no symptoms Allergies: Coded Allergies: No Known Allergies (Unverified , 09/23/20) Objective Last 24 Hour Vital Signs Date Time Temp Pulse Resp B/P (MAP) Pulse Ox O2 Delivery O2 Flow Rate FiO2 09/28/20 11:59 97.8 79 18 112/72 (85) 93 09/28/20 09:00 Nasal Cannula 2.0 09/28/20 08:00 97.7 78 17 147/72 (97) 94 09/28/20 04:00 98.5 84 18 150/70 (96) 98 09/28/20 00:00 99.1 85 20 161/77 (105) 98 09/27/20 21:00 Nasal Cannula 2.0 09/27/20 20:00 99.5 86 20 151/73 (99) 98 09/27/20 19:36 98 Nasal Cannula 2.0 28 09/27/20 16:00 97.9 19 137/79 (98) 99 Height (Feet): 5 Height (Inches): 0.00 Weight (Pounds): 96 General Appearance: no acute distress HEENT: mucous membranes moist Respiratory/Chest: lungs clear Cardiovascular: normal rate Abdomen: soft, non tender Extremities: no edema Neurologic/Psychiatric: alert, responsive Musculoskeletal: atrophy Laboratory Tests Test 09/28/20 05:50 09/28/20 08:45 White Blood Count 9.5 K/UL (4.8-10.8) Red Blood Count 2.79 M/UL (4.20-5.40) L Hemoglobin 8.9 G/DL (12.0-16.0) L Hematocrit 30.3 % (37.0-47.0) L Mean Corpuscular Volume 109 FL (80-99) H Mean Corpuscular Hemoglobin 32.1 PG (27.0-31.0) H Mean Corpuscular Hemoglobin Concent 29.5 G/DL (32.0-36.0) L Red Cell Distribution Width 18.2 % (11.6-14.8) H Platelet Count 292 K/UL (150-450) Mean Platelet Volume 6.4 FL (6.5-10.1) L Neutrophils (%) (Auto) 74.3 % (45.0-75.0) Lymphocytes (%) (Auto) 13.4 % (20.0-45.0) L Monocytes (%) (Auto) 10.8 % (1.0-10.0) H Eosinophils (%) (Auto) 0.8 % (0.0-3.0) Basophils (%) (Auto) 0.7 % (0.0-2.0) Sodium Level 141 MMOL/L (136-145) Potassium Level 3.8 MMOL/L (3.5-5.1) Chloride Level 104 MMOL/L (98-107) Carbon Dioxide Level 29 MMOL/L (21-32) Anion Gap 8 mmol/L (5-15) Blood Urea Nitrogen 32 mg/dL (7-18) H Creatinine 4.4 MG/DL (0.55-1.30) H Estimat Glomerular Filtration Rate 9.7 mL/min (>60) Glucose Level 71 MG/DL (74-106) L Calcium Level 8.5 MG/DL (8.5-10.1) Phosphorus Level 3.7 MG/DL (2.5-4.9) Magnesium Level 2.2 MG/DL (1.8-2.4) Total Bilirubin 0.4 MG/DL (0.2-1.0) Aspartate Amino Transf (AST/SGOT) 9 U/L (15-37) L Alanine Aminotransferase (ALT/SGPT) < 6 U/L (12-78) L Alkaline Phosphatase 113 U/L (46-116) C-Reactive Protein, Quantitative 6.1 mg/dL (0.00-0.90) H Pro-B-Type Natriuretic Peptide > 59839 pg/mL (0-125) H Total Protein 5.9 G/DL (6.4-8.2) L Albumin 2.0 G/DL (3.4-5.0) L Globulin 3.9 g/dL Albumin/Globulin Ratio 0.5 (1.0-2.7) L POC Whole Blood Glucose Pending Current Medications Medications (Trade) Dose Ordered Sig/Yeimi Route PRN Reason Start Time Stop Time Status Last Admin Dose Admin Acetaminophen (Tylenol) 650 mg Q4H PRN ORAL Temp >100.5 09/24/20 10:30 10/24/20 10:29 Ascorbic Acid (Vitamin C) 250 mg BID ORAL 09/24/20 18:00 10/24/20 17:59 09/28/20 08:42 Citalopram Hydrobromide (CeleXA) 20 mg DAILY ORAL 09/25/20 09:00 10/25/20 08:59 09/28/20 08:42 Dextrose (Dextrose 50%) 25 ml Q30M PRN IV Hypoglycemia 09/24/20 21:15 12/23/20 21:14 Dextrose (Dextrose 50%) 50 ml Q30M PRN IV Hypoglycemia 09/24/20 21:15 12/23/20 21:14 Gabapentin (Neurontin) 100 mg THREE TIMES A DAY ORAL 09/24/20 13:00 10/24/20 12:59 09/28/20 12:40 Insulin Aspart (NovoLOG) BID SUBQ 09/25/20 09:00 12/24/20 08:59 09/27/20 08:58 Lactobacillus Acidophilus (Culturelle) 1 tab THREE TIMES A DAY ORAL 09/25/20 18:00 12/24/20 17:59 09/28/20 12:40 Pantoprazole (Protonix) 40 mg BID ORAL 09/25/20 18:00 10/25/20 08:59 09/28/20 08:42 Piperacillin Sod/ Tazobactam Sod 2.25 gm/Sodium Chloride 55 ml @ 110 mls/hr Q8HR IV 09/27/20 14:00 10/02/20 13:59 09/28/20 06:14 Sevelamer Carbonate (Renvela) 1,600 mg THREE TIMES A DAY ORAL 09/25/20 18:00 12/23/20 12:59 09/28/20 12:40 Vancomycin HCl (Firvanq) 250 mg FOUR TIMES A DAY ORAL 09/24/20 13:00 10/07/20 23:59 09/28/20 12:40 Vitamin B Complex/ Vit C/Folic Acid (Nephrovite) 1 tab DAILY ORAL 09/25/20 09:00 10/25/20 08:59 09/28/20 08:42 Aryan Darby MD Sep 28, 2020 13:42
[2020-09-28 16:00] VITALS: BP 130/79
--- NOTE | 2020-09-28 18:59 | NUR ---
NURSE HAND-OFF: Important Events on Shift:[STREAK BLOOD IN STOOL, MD AWARE; DAILY WT; WOUND CARE TREATMENT; REINFORCED DRSG ON PERMACATH. ] Patient Status: [NO CHANGE IN CONDITION] Diet: [RENAL MECH SOFT GROUND] Pending Orders: [LABS] Pending Results/Labs:[IN AM] Pending MD notification:[] Latest Vital Signs: Temperature 98.6 , Pulse 71 , B/P 130 /79 , Respiratory Rate 19 , O2 SAT 94 , Nasal Cannula, O2 Flow Rate 2.0 . Vital Sign Comment: [] Latest Ness Fall Score: 70 Fall Risk: High Risk Safety Measures: Call light Within Reach, Bed Alarm Zone 2, Side Rails Side Rails x3, Bed position Low and Locked. Fall Precautions: Yellow Socks Yellow Gown Door Sign Patient Fall Education Report given to [CAMPOS].
--- NOTE | 2020-09-28 19:44 | NUR ---
NURSE NOTES: Patient in bed, awake and alert x2. On 2L oxygen via nasal cannula with no signs of distress or SOB. Bed locked and in lowest position. Bed alarm on. Call light in reach. Will continue plan of care.
[2020-09-28 20:00] VITALS: BP 183/71
[2020-09-28] MEDS ORDERED: Tubing IV Secondary IV ONE (20:50)
[2020-09-29] VITALS: BP 153/73
[2020-09-29 04:00] VITALS: BP 145/81
[2020-09-29] MEDS: Piperacillin/Tazobactam 2.25 GM in NS 55 ML IV SCH ×3 (05:39→21:08)
--- NOTE | 2020-09-29 06:41 | NUR ---
NURSE HAND-OFF: Important Events on Shift: Pulled out IV x2, HTN Patient Status: Stable Diet: Renal Pending Orders: N/A Pending Results/Labs: CBC, CMP, mag, phos, uric acid Pending MD notification: Sky for BP PRN medication Latest Vital Signs: Temperature 97.5 , Pulse 77 , B/P 145 /81 , Respiratory Rate 24 , O2 SAT 93 , Nasal Cannula, O2 Flow Rate 2.0 . Vital Sign Comment: Latest Ness Fall Score: 70 Fall Risk: High Risk Safety Measures: Call light Within Reach, Bed Alarm Zone 2, Side Rails Side Rails x3, Bed position Low and Locked. Fall Precautions: Yellow Socks Yellow Gown Door Sign Patient Fall Education Addendum: 09/29/20 at 0700 by CAMPOS GRADY RN Report given to ROXANNE Kim
--- NOTE | 2020-09-29 07:17 | NUR ---
NURSE NOTES: RECEIVED PATIENT LYING IN BED, A/A/OX3, FORGETFULNESS. EMIRATI SPEAKING BUT ABLE TO FOLLOW SIMPLE COMMANDS. DENIES PAIN/DISCOMFORT NOTED. NO SIGNS AND SYMPTOMS OF ACUTE CARDIO-RESPIRATORY DISTRESS/SHORTNESS OF BREATH, NO PERIPHERAL EDEMA NOTED. ABDOMEN SOFT/NON-DISTENDED/AUDIBLE BOWEL SOUNDS. SIDERAILS ARE UP X3. BED IN LOWEST POSITION FOR SAFETY, CALL LIGHT WITHIN REACH, BED ALARM AND LOCK ENGAGED. CONTINUE WITH CURRENT PLAN OF CARE.
[2020-09-29 07:46] LABS: BASOPHILS % (AUTO) 0.5 % (0.0-2.0); EOSINOPHILS % (AUTO) 0.9 % (0.0-3.0); HEMATOCRIT 32.4 % (37.0-47.0); HEMOGLOBIN 9.6 G/DL (12.0-16.0); LYMPHOCYTES % (AUTO) 12.7 % (20.0-45.0); MEAN CORPUSCULAR VOLUME 108 FL (80-99); MONOCYTES % (AUTO) 9.5 % (1.0-10.0); NEUTROPHILS % (AUTO) 76.4 % (45.0-75.0); PLATELET COUNT 305 K/UL (150-450); RED BLOOD COUNT 3.01 M/UL (4.20-5.40); RED CELL DISTRIBUTION WIDTH 17.6 % (11.6-14.8); WHITE BLOOD COUNT 9.9 K/UL (4.8-10.8)
[2020-09-29 08:00] VITALS: BP 158/81
[2020-09-29] MEDS: Citalopram Hydrobromide 10mg Tab ORAL SCH (08:05)
[2020-09-29] MEDS: Nephrovite tab (Rena-Vite) ORAL SCH (08:05)
[2020-09-29] MEDS: Ascorbic Acid 500mg tab ORAL SCH ×2 (08:05→17:19)
[2020-09-29] MEDS: Lactobacillus-GG tablet ORAL SCH ×3 (08:05→17:19)
[2020-09-29] MEDS: Vancomycin oral 125mg/2.5ml ORAL SCH ×4 (08:06→21:08)
[2020-09-29 08:19] LABS: ALANINE AMINOTRANSFERASE < 6 U/L (12-78); ALBUMIN 2.1 G/DL (3.4-5.0); ALBUMIN/GLOBULIN RATIO 0.4 (1.0-2.7); ALKALINE PHOSPHATASE 108 U/L (46-116); ANION GAP 9 mmol/L (5-15); ASPARTATE AMINO TRANSFERASE 11 U/L (15-37); BILIRUBIN,TOTAL 0.4 MG/DL (0.2-1.0); BLOOD UREA NITROGEN 34 mg/dL (7-18); CALCIUM 8.7 MG/DL (8.5-10.1); CARBON DIOXIDE 29 MMOL/L (21-32); CHLORIDE 102 MMOL/L (98-107); CREATININE 5.3 MG/DL (0.55-1.30); PHOSPHORUS 4.3 MG/DL (2.5-4.9); POTASSIUM 4.1 MMOL/L (3.5-5.1); SODIUM 140 MMOL/L (136-145)
[2020-09-29] MEDS: NovoLOG Insulin Flexpen SUBQ SCH ×2 (09:00→17:25)
--- NOTE | 2020-09-29 11:22 | Pulmonology Progress Note ---
Subjective ROS Limited/Unobtainable: No Interval Events: None new Constitutional: Reports: no symptoms HEENT: Repors: no symptoms Respiratory: Reports: no symptoms Cardiovascular: Reports: no symptoms Gastrointestinal/Abdominal: Reports: diarrhea Genitourinary: Reports: no symptoms Neurologic: Reports: no symptoms Musculoskeletal: Reports: pain - abdominal Allergies: Coded Allergies: No Known Allergies (Unverified , 09/23/20) Objective Last 24 Hour Vital Signs Date Time Temp Pulse Resp B/P (MAP) Pulse Ox O2 Delivery O2 Flow Rate FiO2 09/29/20 08:00 97.3 77 20 158/81 (106) 94 09/29/20 04:00 97.5 77 24 145/81 (102) 93 09/29/20 00:00 97.8 79 24 153/73 (99) 94 09/28/20 21:13 97 Nasal Cannula 2.0 28 09/28/20 21:00 Nasal Cannula 2.0 09/28/20 20:00 98.0 73 19 183/71 (108) 96 09/28/20 16:00 98.6 71 19 130/79 (96) 94 09/28/20 11:59 97.8 79 18 112/72 (85) 93 Intake and Output 09/28/20 09/29/20 19:00 07:00 Intake Total 500 ml 480 ml Balance 500 ml 480 ml Intake Oral 480 ml Other 500 ml # Bowel Movements 2 2 General Appearance: no acute distress HEENT: normocephalic Respiratory: chest wall non-tender, lungs clear Cardiovascular: normal peripheral pulses, normal rate Abdomen: normal bowel sounds Laboratory Tests 09/28/20 17:45: POC Whole Blood Glucose [Pending] 09/29/20 06:00: White Blood Count 9.9, Red Blood Count 3.01L, Hemoglobin 9.6L, Hematocrit 32.4L, Mean Corpuscular Volume 108H, Mean Corpuscular Hemoglobin 31.9H, Mean Corpuscular Hemoglobin Concent 29.7L, Red Cell Distribution Width 17.6H, Platelet Count 305, Mean Platelet Volume 6.2L, Neutrophils (%) (Auto) 76.4H, Lymphocytes (%) (Auto) 12.7L, Monocytes (%) (Auto) 9.5, Eosinophils (%) (Auto) 0.9, Basophils (%) (Auto) 0.5, Sodium Level 140, Potassium Level 4.1, Chloride Level 102, Carbon Dioxide Level 29, Anion Gap 9, Blood Urea Nitrogen 34H, Creatinine 5.3H, Estimat Glomerular Filtration Rate 7.9, Glucose Level 84, Uric Acid 5.7, Calcium Level 8.7, Phosphorus Level 4.3, Magnesium Level 2.3, Total Bilirubin 0.4, Aspartate Amino Transf (AST/SGOT) 11L, Alanine Aminotransferase (ALT/SGPT) < 6L, Alkaline Phosphatase 108, Total Protein 6.8, Albumin 2.1L, Globulin 4.7, Albumin/Globulin Ratio 0.4L 09/29/20 08:24: POC Whole Blood Glucose 109H Current Medications Medications (Trade) Dose Ordered Sig/Yeimi Route PRN Reason Start Time Stop Time Status Last Admin Dose Admin Acetaminophen (Tylenol) 650 mg Q4H PRN ORAL Temp >100.5 09/24/20 10:30 10/24/20 10:29 Ascorbic Acid (Vitamin C) 250 mg BID ORAL 09/24/20 18:00 10/24/20 17:59 09/29/20 08:05 Citalopram Hydrobromide (CeleXA) 20 mg DAILY ORAL 09/25/20 09:00 10/25/20 08:59 09/29/20 08:05 Dextrose (Dextrose 50%) 25 ml Q30M PRN IV Hypoglycemia 09/24/20 21:15 12/23/20 21:14 Dextrose (Dextrose 50%) 50 ml Q30M PRN IV Hypoglycemia 09/24/20 21:15 12/23/20 21:14 Gabapentin (Neurontin) 100 mg THREE TIMES A DAY ORAL 09/24/20 13:00 10/24/20 12:59 09/29/20 08:05 Insulin Aspart (NovoLOG) BID SUBQ 09/25/20 09:00 12/24/20 08:59 09/27/20 08:58 Lactobacillus Acidophilus (Culturelle) 1 tab THREE TIMES A DAY ORAL 09/25/20 18:00 12/24/20 17:59 09/29/20 08:05 Pantoprazole (Protonix) 40 mg BID ORAL 09/25/20 18:00 10/25/20 08:59 09/29/20 08:05 Piperacillin Sod/ Tazobactam Sod 2.25 gm/Sodium Chloride 55 ml @ 110 mls/hr Q8HR IV 09/27/20 14:00 10/02/20 13:59 09/29/20 05:39 Sevelamer Carbonate (Renvela) 1,600 mg THREE TIMES A DAY ORAL 09/25/20 18:00 12/23/20 12:59 09/29/20 08:05 Vancomycin HCl (Firvanq) 250 mg FOUR TIMES A DAY ORAL 09/24/20 13:00 10/07/20 23:59 09/29/20 08:06 Vitamin B Complex/ Vit C/Folic Acid (Nephrovite) 1 tab DAILY ORAL 09/25/20 09:00 10/25/20 08:59 09/29/20 08:05 Assessment/Plan Assessment/Plan IMPRESSION: 1. Pleural effusions; small bilateral 2. ESRD, on dialysis. 3. Diabetes mellitus. 4. Hypertension. 5 R hilar mass with bilateral pulmonary nodules DISCUSSION: Reviewed CT chest. Continue other home medications and dialysis. I will follow carefully. The etiology of her effusion and soft-tissue mass is not known I have attempted to call family/next of kin but no response OK to dc back to SNF Outpatient workup if family agrees Naman Krause M.D. Naman Krause MD Sep 29, 2020 11:22
--- NOTE | 2020-09-29 11:23 | Infectious Diseases Prog Note ---
Assessment/Plan Assessment/Plan antibiotics : zosyn, po vancomycin A 1. Pneumonia COVID-19 negative. 2. Diabetes. 3. Hypertension. 4. Renal failure on dialysis. 5. C. difficile colitis 6. metastatic cancer 7. leucocytosis improving P 1. continue zosyn 4 more days 2. continue po vancomycin 8 more days 3. will follow up cultures Subjective ROS Limited/Unobtainable: Yes Allergies: Coded Allergies: No Known Allergies (Unverified , 09/23/20) Objective Last 24 Hour Vital Signs Date Time Temp Pulse Resp B/P (MAP) Pulse Ox O2 Delivery O2 Flow Rate FiO2 09/29/20 08:00 97.3 77 20 158/81 (106) 94 09/29/20 04:00 97.5 77 24 145/81 (102) 93 09/29/20 00:00 97.8 79 24 153/73 (99) 94 09/28/20 21:13 97 Nasal Cannula 2.0 28 09/28/20 21:00 Nasal Cannula 2.0 09/28/20 20:00 98.0 73 19 183/71 (108) 96 09/28/20 16:00 98.6 71 19 130/79 (96) 94 09/28/20 11:59 97.8 79 18 112/72 (85) 93 Height (Feet): 5 Height (Inches): 0.00 Weight (Pounds): 96 Respiratory/Chest: lungs clear Cardiovascular: normal rate, regular rhythm, no gallop/murmur Abdomen: soft, non tender Extremities: no edema Laboratory Tests Test 09/28/20 17:45 09/29/20 06:00 09/29/20 08:24 POC Whole Blood Glucose Pending 109 MG/DL (74-106) H White Blood Count 9.9 K/UL (4.8-10.8) Red Blood Count 3.01 M/UL (4.20-5.40) L Hemoglobin 9.6 G/DL (12.0-16.0) L Hematocrit 32.4 % (37.0-47.0) L Mean Corpuscular Volume 108 FL (80-99) H Mean Corpuscular Hemoglobin 31.9 PG (27.0-31.0) H Mean Corpuscular Hemoglobin Concent 29.7 G/DL (32.0-36.0) L Red Cell Distribution Width 17.6 % (11.6-14.8) H Platelet Count 305 K/UL (150-450) Mean Platelet Volume 6.2 FL (6.5-10.1) L Neutrophils (%) (Auto) 76.4 % (45.0-75.0) H Lymphocytes (%) (Auto) 12.7 % (20.0-45.0) L Monocytes (%) (Auto) 9.5 % (1.0-10.0) Eosinophils (%) (Auto) 0.9 % (0.0-3.0) Basophils (%) (Auto) 0.5 % (0.0-2.0) Sodium Level 140 MMOL/L (136-145) Potassium Level 4.1 MMOL/L (3.5-5.1) Chloride Level 102 MMOL/L (98-107) Carbon Dioxide Level 29 MMOL/L (21-32) Anion Gap 9 mmol/L (5-15) Blood Urea Nitrogen 34 mg/dL (7-18) H Creatinine 5.3 MG/DL (0.55-1.30) H Estimat Glomerular Filtration Rate 7.9 mL/min (>60) Glucose Level 84 MG/DL (74-106) Uric Acid 5.7 MG/DL (2.6-7.2) Calcium Level 8.7 MG/DL (8.5-10.1) Phosphorus Level 4.3 MG/DL (2.5-4.9) Magnesium Level 2.3 MG/DL (1.8-2.4) Total Bilirubin 0.4 MG/DL (0.2-1.0) Aspartate Amino Transf (AST/SGOT) 11 U/L (15-37) L Alanine Aminotransferase (ALT/SGPT) < 6 U/L (12-78) L Alkaline Phosphatase 108 U/L (46-116) Total Protein 6.8 G/DL (6.4-8.2) Albumin 2.1 G/DL (3.4-5.0) L Globulin 4.7 g/dL Albumin/Globulin Ratio 0.4 (1.0-2.7) L Current Medications Medications (Trade) Dose Ordered Sig/Yeimi Route PRN Reason Start Time Stop Time Status Last Admin Dose Admin Acetaminophen (Tylenol) 650 mg Q4H PRN ORAL Temp >100.5 09/24/20 10:30 10/24/20 10:29 Ascorbic Acid (Vitamin C) 250 mg BID ORAL 09/24/20 18:00 10/24/20 17:59 09/29/20 08:05 Citalopram Hydrobromide (CeleXA) 20 mg DAILY ORAL 09/25/20 09:00 10/25/20 08:59 09/29/20 08:05 Dextrose (Dextrose 50%) 25 ml Q30M PRN IV Hypoglycemia 09/24/20 21:15 12/23/20 21:14 Dextrose (Dextrose 50%) 50 ml Q30M PRN IV Hypoglycemia 09/24/20 21:15 12/23/20 21:14 Gabapentin (Neurontin) 100 mg THREE TIMES A DAY ORAL 09/24/20 13:00 10/24/20 12:59 09/29/20 08:05 Insulin Aspart (NovoLOG) BID SUBQ 09/25/20 09:00 12/24/20 08:59 09/27/20 08:58 Lactobacillus Acidophilus (Culturelle) 1 tab THREE TIMES A DAY ORAL 09/25/20 18:00 12/24/20 17:59 09/29/20 08:05 Pantoprazole (Protonix) 40 mg BID ORAL 09/25/20 18:00 10/25/20 08:59 09/29/20 08:05 Piperacillin Sod/ Tazobactam Sod 2.25 gm/Sodium Chloride 55 ml @ 110 mls/hr Q8HR IV 09/27/20 14:00 10/02/20 13:59 09/29/20 05:39 Sevelamer Carbonate (Renvela) 1,600 mg THREE TIMES A DAY ORAL 09/25/20 18:00 12/23/20 12:59 09/29/20 08:05 Vancomycin HCl (Firvanq) 250 mg FOUR TIMES A DAY ORAL 09/24/20 13:00 10/07/20 23:59 09/29/20 08:06 Vitamin B Complex/ Vit C/Folic Acid (Nephrovite) 1 tab DAILY ORAL 09/25/20 09:00 10/25/20 08:59 09/29/20 08:05 Erika Stiles MD Sep 29, 2020 11:23
--- NOTE | 2020-09-29 11:47 | Nephrology Progress Note ---
Assessment/Plan Problem List: (1) ESRD (end stage renal disease) (2) Diarrhea (3) C. difficile colitis (4) Diastolic CHF, chronic Assessment End-stage renal disease on hemodialysis 3 times a week Patient has a left upper chest permacath for dialysis access Patient has C. difficile colitis and watery diarrhea History of hypertension History of diabetes History of hyperlipemia History of cardiomyopathy, congestive heart failure Plan September 29: Labs reviewed. Will order dialysis tomorrow. Medication list reviewed. September 28: Labs reviewed. Dialyzed September 26. Due for dialysis September 29 after reviewing the can panel. RN reports blood in the stool. GI consult/work- up in process. September 27: No can panel today. Dialyzed yesterday. Consultants notes reviewed. Medication reviewed. Check labs tomorrow. Dialysis as needed. September 26: Labs checked today. Due for dialysis today. Continue per consultants. Medications reviewed. Subjective ROS Limited/Unobtainable: No Constitutional: Reports: malaise Objective Objective Last 24 Hour Vital Signs Date Time Temp Pulse Resp B/P (MAP) Pulse Ox O2 Delivery O2 Flow Rate FiO2 09/29/20 08:00 97.3 77 20 158/81 (106) 94 09/29/20 04:00 97.5 77 24 145/81 (102) 93 09/29/20 00:00 97.8 79 24 153/73 (99) 94 09/28/20 21:13 97 Nasal Cannula 2.0 28 09/28/20 21:00 Nasal Cannula 2.0 09/28/20 20:00 98.0 73 19 183/71 (108) 96 09/28/20 16:00 98.6 71 19 130/79 (96) 94 09/28/20 11:59 97.8 79 18 112/72 (85) 93 Intake and Output 09/28/20 09/29/20 19:00 07:00 Intake Total 500 ml 480 ml Balance 500 ml 480 ml Intake Oral 480 ml Other 500 ml # Bowel Movements 2 2 Current Medications Medications (Trade) Dose Ordered Sig/Yeimi Route PRN Reason Start Time Stop Time Status Last Admin Dose Admin Acetaminophen (Tylenol) 650 mg Q4H PRN ORAL Temp >100.5 09/24/20 10:30 10/24/20 10:29 Ascorbic Acid (Vitamin C) 250 mg BID ORAL 09/24/20 18:00 10/24/20 17:59 09/29/20 08:05 Citalopram Hydrobromide (CeleXA) 20 mg DAILY ORAL 09/25/20 09:00 10/25/20 08:59 09/29/20 08:05 Dextrose (Dextrose 50%) 25 ml Q30M PRN IV Hypoglycemia 09/24/20 21:15 12/23/20 21:14 Dextrose (Dextrose 50%) 50 ml Q30M PRN IV Hypoglycemia 09/24/20 21:15 12/23/20 21:14 Gabapentin (Neurontin) 100 mg THREE TIMES A DAY ORAL 09/24/20 13:00 10/24/20 12:59 09/29/20 08:05 Insulin Aspart (NovoLOG) BID SUBQ 09/25/20 09:00 12/24/20 08:59 09/27/20 08:58 Lactobacillus Acidophilus (Culturelle) 1 tab THREE TIMES A DAY ORAL 09/25/20 18:00 12/24/20 17:59 09/29/20 08:05 Pantoprazole (Protonix) 40 mg BID ORAL 09/25/20 18:00 10/25/20 08:59 09/29/20 08:05 Piperacillin Sod/ Tazobactam Sod 2.25 gm/Sodium Chloride 55 ml @ 110 mls/hr Q8HR IV 09/27/20 14:00 10/02/20 13:59 09/29/20 05:39 Sevelamer Carbonate (Renvela) 1,600 mg THREE TIMES A DAY ORAL 09/25/20 18:00 12/23/20 12:59 09/29/20 08:05 Vancomycin HCl (Firvanq) 250 mg FOUR TIMES A DAY ORAL 09/24/20 13:00 10/07/20 23:59 09/29/20 08:06 Vitamin B Complex/ Vit C/Folic Acid (Nephrovite) 1 tab DAILY ORAL 09/25/20 09:00 10/25/20 08:59 09/29/20 08:05 Laboratory Tests 09/28/20 17:45: POC Whole Blood Glucose [Pending] 09/29/20 06:00: White Blood Count 9.9, Red Blood Count 3.01L, Hemoglobin 9.6L, Hematocrit 32.4L, Mean Corpuscular Volume 108H, Mean Corpuscular Hemoglobin 31.9H, Mean Corpuscular Hemoglobin Concent 29.7L, Red Cell Distribution Width 17.6H, Platelet Count 305, Mean Platelet Volume 6.2L, Neutrophils (%) (Auto) 76.4H, Lymphocytes (%) (Auto) 12.7L, Monocytes (%) (Auto) 9.5, Eosinophils (%) (Auto) 0.9, Basophils (%) (Auto) 0.5, Sodium Level 140, Potassium Level 4.1, Chloride Level 102, Carbon Dioxide Level 29, Anion Gap 9, Blood Urea Nitrogen 34H, Creatinine 5.3H, Estimat Glomerular Filtration Rate 7.9, Glucose Level 84, Uric Acid 5.7, Calcium Level 8.7, Phosphorus Level 4.3, Magnesium Level 2.3, Total Bilirubin 0.4, Aspartate Amino Transf (AST/SGOT) 11L, Alanine Aminotransferase (ALT/SGPT) < 6L, Alkaline Phosphatase 108, Total Protein 6.8, Albumin 2.1L, Globulin 4.7, Albumin/Globulin Ratio 0.4L 09/29/20 08:24: POC Whole Blood Glucose 109H Height (Feet): 5 Height (Inches): 0.00 Weight (Pounds): 96 General Appearance: no apparent distress, lethargic Objective No change Chris Puckett MD Sep 29, 2020 11:47
--- NOTE | 2020-09-29 11:50 | NUR ---
NURSE NOTES: CALLED [facility] AND SPOKE WITH JOANA FOR HD IN AM 11/9. AWAITS FOR CONFIRMATION FROM HD NURSE. WILL CONT TO MONITOR.
[2020-09-29 12:00] VITALS: BP 143/68
--- NOTE | 2020-09-29 12:01 | NUR ---
NURSE NOTES: SPOKE WITH CEASAR, LAB. RE: CEA LEVEL THAT WAS ORDERED 09/26 WAS SENT OUT. LAB PERSONNEL WILL CALL TO OBTAIN RESULT TODAY. WILL CONT TO MONITOR.
--- NOTE | 2020-09-29 14:04 | General Progress Note ---
Subjective Allergies: Coded Allergies: No Known Allergies (Unverified , 09/23/20) Subjective looks dry sob better isolation rectal bleeding this am Objective Last 24 Hour Vital Signs Date Time Temp Pulse Resp B/P (MAP) Pulse Ox O2 Delivery O2 Flow Rate FiO2 09/29/20 12:00 98.0 71 20 143/68 (93) 98 09/29/20 09:00 Nasal Cannula 2.0 09/29/20 08:00 97.3 77 20 158/81 (106) 94 09/29/20 04:00 97.5 77 24 145/81 (102) 93 09/29/20 00:00 97.8 79 24 153/73 (99) 94 09/28/20 21:13 97 Nasal Cannula 2.0 28 09/28/20 21:00 Nasal Cannula 2.0 09/28/20 20:00 98.0 73 19 183/71 (108) 96 09/28/20 16:00 98.6 71 19 130/79 (96) 94 Intake and Output 09/28/20 09/29/20 19:00 07:00 Intake Total 500 ml 480 ml Balance 500 ml 480 ml Intake Oral 480 ml Other 500 ml # Bowel Movements 2 2 Laboratory Tests 09/28/20 17:45: POC Whole Blood Glucose [Pending] 09/29/20 06:00: White Blood Count 9.9, Red Blood Count 3.01L, Hemoglobin 9.6L, Hematocrit 32.4L, Mean Corpuscular Volume 108H, Mean Corpuscular Hemoglobin 31.9H, Mean Corpuscular Hemoglobin Concent 29.7L, Red Cell Distribution Width 17.6H, Platelet Count 305, Mean Platelet Volume 6.2L, Neutrophils (%) (Auto) 76.4H, Lymphocytes (%) (Auto) 12.7L, Monocytes (%) (Auto) 9.5, Eosinophils (%) (Auto) 0.9, Basophils (%) (Auto) 0.5, Sodium Level 140, Potassium Level 4.1, Chloride Level 102, Carbon Dioxide Level 29, Anion Gap 9, Blood Urea Nitrogen 34H, Creatinine 5.3H, Estimat Glomerular Filtration Rate 7.9, Glucose Level 84, Uric Acid 5.7, Calcium Level 8.7, Phosphorus Level 4.3, Magnesium Level 2.3, Total Bilirubin 0.4, Aspartate Amino Transf (AST/SGOT) 11L, Alanine Aminotransferase (ALT/SGPT) < 6L, Alkaline Phosphatase 108, Total Protein 6.8, Albumin 2.1L, Globulin 4.7, Albumin/Globulin Ratio 0.4L 09/29/20 08:24: POC Whole Blood Glucose 109H Height (Feet): 5 Height (Inches): 0.00 Weight (Pounds): 96 General Appearance: alert Neck: supple Cardiovascular: regular rhythm Respiratory/Chest: lungs clear Abdomen: non tender, soft Extremities: non-tender Assessment/Plan Assessment/Plan: 1 lgi bleeding with anemia 2 chf combined acute 3fluid overlad 4htn 5c diff colitis 6faiure of thrive 7severe malnutrition 8possible lung ca dw dr enriquez contact isolation cardio on case gi on the case fu labs Cesar Swanson MD Sep 29, 2020 14:04
--- NOTE | 2020-09-29 15:00 | NUR ---
NURSE NOTES: CHANGED CENTRAL LINE DRSG. TAPE WAS TORN AND PEELED OFF. CLEAN AND INTACT. WILL CONT TO MONITOR.
[2020-09-29 16:00] VITALS: BP 122/79
--- NOTE | 2020-09-29 16:08 | NUR ---
NURSE NOTES: CALLED JOVAN FROM LAB RE; THE CEA RESULT THAT WAS ORDERED LAST 09/26. CEA DRAWN AND A SENT OUT AND WILL CALL ME BACK. WILL CONT TO MONITOR.
--- NOTE | 2020-09-29 16:59 | NUR ---
NURSE NOTES: DR RIZVI MADE AWARE OF THE CEA RESULT. NO NEW ORDER OBTAINED. WILL CONT TO MONITOR. Addendum: 09/29/20 at 1741 by MIGUE RAMOS LVN COPY IS IN PATIENT'S CHART.
--- NOTE | 2020-09-29 17:52 | NUR ---
NURSE NOTES: PATIENT HAD BMX1, SOFT AND BLOOD IN STOOL STILL PRESENT WITH A MILD AMOUNT OF BLOOD. GI MD MADE AWARE. WILL CONT TO MONITOR.
--- NOTE | 2020-09-29 19:11 | NUR ---
NURSE HAND-OFF: Important Events on Shift:[BMX1 STREAKS OF BLOOD , GI AWARE; CEA RESULT CONVEYED TO DR RIZVI; WOUND DRSG CHANGED; BS CHECK] Patient Status: [NO SIGNIFICANT CHANGE IN CONDITION] Diet: [RENAL MECH SOFT] Pending Orders: [LABS] Pending Results/Labs:[IN AM] Pending MD notification:[] Latest Vital Signs: Temperature 97.3 , Pulse 76 , B/P 122 /79 , Respiratory Rate 20 , O2 SAT 99 , Nasal Cannula, O2 Flow Rate 2.0 . Vital Sign Comment: [] Latest Ness Fall Score: 70 Fall Risk: High Risk Safety Measures: Call light Within Reach, Bed Alarm Zone 2, Side Rails Side Rails x3, Bed position Low and Locked. Fall Precautions: Yellow Socks Yellow Gown Door Sign Patient Fall Education Report given to [CAMPOS].
--- NOTE | 2020-09-29 19:18 | NUR ---
NURSE NOTES: Patient in bed, sleeping at this time but easily arousable. On 2L oxygen via nasal cannula with no signs of distress or SOB. IV intact and wrapped with kerlix. Bed locked and in lowest position. Bed alarm on. Call light in reach. Will continue plan of care.
[2020-09-29 20:00] VITALS: BP 137/79
--- NOTE | 2020-09-29 21:06 | Nephrology Progress Note ---
Assessment/Plan Problem List: (1) ESRD (end stage renal disease) ICD Codes: N18.6 - End stage renal disease SNOMED: 57978127 (2) Diarrhea ICD Codes: R19.7 - Diarrhea, unspecified SNOMED: 04604719 (3) C. difficile colitis ICD Codes: A04.72 - Enterocolitis due to Clostridium difficile, not specified as recurrent SNOMED: 718880901 (4) Diastolic CHF, chronic ICD Codes: I50.32 - Chronic diastolic (congestive) heart failure SNOMED: 29215505, 422021677 Assessment/Plan: ERROR NOTE Subjective Allergies: Coded Allergies: No Known Allergies (Unverified , 09/23/20) Subjective ERROR NOTE Objective Last 24 Hour Vital Signs Date Time Temp Pulse Resp B/P (MAP) Pulse Ox O2 Delivery O2 Flow Rate FiO2 09/29/20 20:26 Nasal Cannula 2.0 09/29/20 19:33 98 Nasal Cannula 2.0 28 09/29/20 16:00 97.3 76 20 122/79 (93) 99 09/29/20 12:00 98.0 71 20 143/68 (93) 98 09/29/20 09:00 Nasal Cannula 2.0 09/29/20 08:00 97.3 77 20 158/81 (106) 94 09/29/20 04:00 97.5 77 24 145/81 (102) 93 09/29/20 00:00 97.8 79 24 153/73 (99) 94 09/28/20 21:13 97 Nasal Cannula 2.0 28 Intake and Output 09/28/20 09/29/20 19:00 07:00 Intake Total 500 ml 480 ml Balance 500 ml 480 ml Intake Oral 480 ml Other 500 ml # Bowel Movements 2 2 Laboratory Tests 09/29/20 06:00: White Blood Count 9.9, Red Blood Count 3.01L, Hemoglobin 9.6L, Hematocrit 32.4L, Mean Corpuscular Volume 108H, Mean Corpuscular Hemoglobin 31.9H, Mean Corpuscular Hemoglobin Concent 29.7L, Red Cell Distribution Width 17.6H, Platelet Count 305, Mean Platelet Volume 6.2L, Neutrophils (%) (Auto) 76.4H, Lymphocytes (%) (Auto) 12.7L, Monocytes (%) (Auto) 9.5, Eosinophils (%) (Auto) 0.9, Basophils (%) (Auto) 0.5, Sodium Level 140, Potassium Level 4.1, Chloride Level 102, Carbon Dioxide Level 29, Anion Gap 9, Blood Urea Nitrogen 34H, Creatinine 5.3H, Estimat Glomerular Filtration Rate 7.9, Glucose Level 84, Uric Acid 5.7, Calcium Level 8.7, Phosphorus Level 4.3, Magnesium Level 2.3, Total Bilirubin 0.4, Aspartate Amino Transf (AST/SGOT) 11L, Alanine Aminotransferase (ALT/SGPT) < 6L, Alkaline Phosphatase 108, Total Protein 6.8, Albumin 2.1L, Globulin 4.7, Albumin/Globulin Ratio 0.4L 09/29/20 08:24: POC Whole Blood Glucose 109H 09/29/20 17:23: POC Whole Blood Glucose 150H Height (Feet): 5 Height (Inches): 0.00 Weight (Pounds): 96 Objective ERROR NOTE Chris Puckett MD Sep 29, 2020 21:06
[2020-09-30] VITALS: BP 159/79
[2020-09-30 04:00] VITALS: BP 150/81
[2020-09-30] MEDS: Piperacillin/Tazobactam 2.25 GM in NS 55 ML IV SCH ×3 (05:32→21:14)
--- NOTE | 2020-09-30 07:10 | NUR ---
NURSE HAND-OFF: Important Events on Shift: No events Patient Status: Stable Diet: Renal Pending Orders: N/A Pending Results/Labs: CBC, CMP, Mag, Phos, Uric acid, BNP, CRP Pending MD notification: N/A Latest Vital Signs: Temperature 98.1 , Pulse 80 , B/P 150 /81 , Respiratory Rate 20 , O2 SAT 98 , Nasal Cannula, O2 Flow Rate 2.0 . Vital Sign Comment: N/A Latest Ness Fall Score: 70 Fall Risk: High Risk Safety Measures: Call light Within Reach, Bed Alarm Zone 2, Side Rails Side Rails x3, Bed position Low and Locked. Fall Precautions: Yellow Socks Yellow Gown Door Sign Patient Fall Education Report given to ROXANNE Kim.
[2020-09-30 07:18] LABS: BASOPHILS % (AUTO) 0.9 % (0.0-2.0); HEMATOCRIT 30.7 % (37.0-47.0); HEMOGLOBIN 9.3 G/DL (12.0-16.0); LYMPHOCYTES % (AUTO) 12.6 % (20.0-45.0); MEAN CORPUSCULAR VOLUME 107 FL (80-99); MONOCYTES % (AUTO) 9.5 % (1.0-10.0); NEUTROPHILS % (AUTO) 76.1 % (45.0-75.0); PLATELET COUNT 283 K/UL (150-450); RED BLOOD COUNT 2.88 M/UL (4.20-5.40); RED CELL DISTRIBUTION WIDTH 17.8 % (11.6-14.8); WHITE BLOOD COUNT 9.3 K/UL (4.8-10.8)
--- NOTE | 2020-09-30 07:30 | NUR ---
NURSE NOTES: RECEIVED PATIENT LYING IN BED, A/A/OX3, FORGETFULNESS. IRAQI SPEAKING BUT ABLE TO FOLLOW SIMPLE COMMANDS. DENIES PAIN/DISCOMFORT NOTED. NO SIGNS AND SYMPTOMS OF ACUTE CARDIO-RESPIRATORY DISTRESS/SHORTNESS OF BREATH, NO PERIPHERAL EDEMA NOTED. ABDOMEN SOFT/NON-DISTENDED/AUDIBLE BOWEL SOUNDS. SIDERAILS ARE UP X3. BED IN LOWEST POSITION FOR SAFETY, CALL LIGHT WITHIN REACH, BED ALARM AND LOCK ENGAGED. CONTINUE WITH CURRENT PLAN OF CARE.
[2020-09-30 08:00] VITALS: BP 159/73
--- NOTE | 2020-09-30 08:00 | NUR ---
NURSE NOTES: [facility]ITO HD NURSE FROM [facility] CONFIRMED TODAY'S HD. HOLD MEDS DUE TO RECEIVING HD. WILL CONT TO MONITOR.
[2020-09-30 08:16] LABS: ALANINE AMINOTRANSFERASE 10 U/L (12-78); ALBUMIN 1.9 G/DL (3.4-5.0); ALBUMIN/GLOBULIN RATIO 0.4 (1.0-2.7); ALKALINE PHOSPHATASE 92 U/L (46-116); ANION GAP 9 mmol/L (5-15); ASPARTATE AMINO TRANSFERASE 11 U/L (15-37); BILIRUBIN,TOTAL 0.4 MG/DL (0.2-1.0); BLOOD UREA NITROGEN 39 mg/dL (7-18); CALCIUM 7.9 MG/DL (8.5-10.1); CARBON DIOXIDE 26 MMOL/L (21-32); CHLORIDE 104 MMOL/L (98-107); CREATININE 6.2 MG/DL (0.55-1.30); PHOSPHORUS 4.8 MG/DL (2.5-4.9); POTASSIUM 4.2 MMOL/L (3.5-5.1); SODIUM 139 MMOL/L (136-145)
[2020-09-30] MEDS: Citalopram Hydrobromide 10mg Tab ORAL SCH (08:57)
[2020-09-30] MEDS: NovoLOG Insulin Flexpen SUBQ SCH ×2 (08:57→17:25)
[2020-09-30] MEDS: Vancomycin oral 125mg/2.5ml ORAL SCH ×4 (08:58→21:14)
[2020-09-30] MEDS: Nephrovite tab (Rena-Vite) ORAL SCH (08:58)
[2020-09-30] MEDS: Lactobacillus-GG tablet ORAL SCH ×3 (08:58→17:24)
[2020-09-30] MEDS: Ascorbic Acid 500mg tab ORAL SCH ×2 (08:58→17:24)
--- NOTE | 2020-09-30 10:03 | Cardiology Report ---
APPROVED REPORT EXAM: Two-dimensional and M-mode echocardiogram with Doppler and color Doppler. INDICATION Congestive Heart Failure M-Mode DIMENSIONS IVSd0.9 (0.7-1.1cm)Left Atrium (MM)5.4 (1.6-4.0cm) LVDd4.7 (3.5-5.6cm)Aortic Root2.2 (2.0-3.7cm) PWd1.1 (0.7-1.1cm)Aortic Cusp Exc.1.6 (1.5-2.0cm) IVSs1.3 cmEPSS0.7 (>1.0cm) LVDs3.5 (2.5-4.0cm) PWs1.6 cm <Conclusion> Normal left ventricular chamber size, systolic function and wall motion. Left ventricular ejection fraction estimated to be 55 %. No evidence of left ventricular hypertrophy. Possible large posterior pleural effusion. Moderate left atrial enlargement. Mild right atrial enlargement. Mild right ventricular enlargement. There may be communication between RA and LA by Color Doppler. ASD/PFO can not be excluded. Bubble study is recommended if clinically indicated. Moderate focal aortic valve sclerosis with adequate cusp excursion. Moderately thickened mitral valve leaflets with normal excursion. Moderate mitral annulus and aortic root calcification. Pulmonic valve not well visualized. Normal tricuspid valve structure. IVC measured at 2.0 with slight physiologic collapse suggestive of increased RA pressure. A color flow and spectral Doppler study was performed and revealed: Trace aortic regurgitation. Moderate mitral regurgitation. Mitral inflow velocities indicates possible pseudo normalization pattern implying moderately elevated left atrial pressure (Grade II). Severe tricuspid regurgitation. Tricuspid systolic velocities suggests peak right ventricular systolic pressure of 86 mmHg, consistent with severe pulmonary hypertension. Mild pulmonic regurgitation present.
--- NOTE | 2020-09-30 10:08 | Pulmonology Progress Note ---
Subjective ROS Limited/Unobtainable: No Interval Events: None new Constitutional: Reports: no symptoms HEENT: Repors: no symptoms Respiratory: Reports: no symptoms Cardiovascular: Reports: no symptoms Gastrointestinal/Abdominal: Reports: diarrhea Genitourinary: Reports: no symptoms Neurologic: Reports: no symptoms Musculoskeletal: Reports: pain - abdominal Allergies: Coded Allergies: No Known Allergies (Unverified , 09/23/20) Objective Last 24 Hour Vital Signs Date Time Temp Pulse Resp B/P (MAP) Pulse Ox O2 Delivery O2 Flow Rate FiO2 09/30/20 09:00 Nasal Cannula 2.0 09/30/20 08:00 97.3 77 20 159/73 (101) 94 09/30/20 07:34 99 Nasal Cannula 2.0 28 09/30/20 04:00 98.1 80 20 150/81 (104) 98 09/30/20 00:00 98.3 75 20 159/79 (105) 99 09/29/20 20:26 Nasal Cannula 2.0 09/29/20 20:00 97.6 74 20 137/79 (98) 94 09/29/20 19:33 98 Nasal Cannula 2.0 28 09/29/20 16:00 97.3 76 20 122/79 (93) 99 09/29/20 12:00 98.0 71 20 143/68 (93) 98 Intake and Output 09/29/20 09/30/20 19:00 07:00 Intake Total 600 ml 200 ml Balance 600 ml 200 ml Intake Oral 600 ml 200 ml # Voids 2 # Bowel Movements 3 2 General Appearance: no acute distress HEENT: normocephalic Respiratory: chest wall non-tender, lungs clear Cardiovascular: normal peripheral pulses, normal rate Abdomen: normal bowel sounds Laboratory Tests 09/29/20 17:23: POC Whole Blood Glucose 150H 09/30/20 06:30: White Blood Count 9.3, Red Blood Count 2.88L, Hemoglobin 9.3L, Hematocrit 30.7L, Mean Corpuscular Volume 107H, Mean Corpuscular Hemoglobin 32.1H, Mean Corpuscular Hemoglobin Concent 30.2L, Red Cell Distribution Width 17.8H, Platelet Count 283, Mean Platelet Volume 6.3L, Neutrophils (%) (Auto) 76.1H, Lymphocytes (%) (Auto) 12.6L, Monocytes (%) (Auto) 9.5, Eosinophils (%) (Auto) 1.0, Basophils (%) (Auto) 0.9, Sodium Level 139, Potassium Level 4.2, Chloride Level 104, Carbon Dioxide Level 26, Anion Gap 9, Blood Urea Nitrogen 39H, Creatinine 6.2H, Estimat Glomerular Filtration Rate 6.5, Glucose Level 87, Uric Acid 6.4, Calcium Level 7.9L, Phosphorus Level 4.8, Magnesium Level 2.3, Total Bilirubin 0.4, Aspartate Amino Transf (AST/SGOT) 11L, Alanine Aminotransferase (ALT/SGPT) 10L, Alkaline Phosphatase 92, C-Reactive Protein, Quantitative 3.9H, Pro-B-Type Natriuretic Peptide > 69006K, Total Protein 6.2L, Albumin 1.9L, Globulin 4.3, Albumin/Globulin Ratio 0.4L 09/30/20 08:56: POC Whole Blood Glucose 126H Current Medications Medications (Trade) Dose Ordered Sig/Yeimi Route PRN Reason Start Time Stop Time Status Last Admin Dose Admin Acetaminophen (Tylenol) 650 mg Q4H PRN ORAL Temp >100.5 09/24/20 10:30 10/24/20 10:29 Ascorbic Acid (Vitamin C) 250 mg BID ORAL 09/24/20 18:00 10/24/20 17:59 09/29/20 17:19 Citalopram Hydrobromide (CeleXA) 20 mg DAILY ORAL 09/25/20 09:00 10/25/20 08:59 09/29/20 08:05 Dextrose (Dextrose 50%) 25 ml Q30M PRN IV Hypoglycemia 09/24/20 21:15 12/23/20 21:14 Dextrose (Dextrose 50%) 50 ml Q30M PRN IV Hypoglycemia 09/24/20 21:15 12/23/20 21:14 Gabapentin (Neurontin) 200 mg DAILY ORAL 09/30/20 09:00 10/30/20 08:59 Insulin Aspart (NovoLOG) BID SUBQ 09/25/20 09:00 12/24/20 08:59 09/29/20 17:25 Lactobacillus Acidophilus (Culturelle) 1 tab THREE TIMES A DAY ORAL 09/25/20 18:00 12/24/20 17:59 09/29/20 17:19 Pantoprazole (Protonix) 40 mg BID ORAL 09/25/20 18:00 10/25/20 08:59 09/29/20 17:19 Piperacillin Sod/ Tazobactam Sod 2.25 gm/Sodium Chloride 55 ml @ 110 mls/hr Q8HR IV 09/27/20 14:00 10/02/20 13:59 09/30/20 05:32 Sevelamer Carbonate (Renvela) 1,600 mg THREE TIMES A DAY ORAL 09/25/20 18:00 12/23/20 12:59 09/29/20 17:19 Vancomycin HCl (Firvanq) 250 mg FOUR TIMES A DAY ORAL 09/24/20 13:00 10/07/20 23:59 09/29/20 21:08 Vitamin B Complex/ Vit C/Folic Acid (Nephrovite) 1 tab DAILY ORAL 09/25/20 09:00 10/25/20 08:59 09/29/20 08:05 Assessment/Plan Assessment/Plan IMPRESSION: 1. Pleural effusions; small bilateral 2. ESRD, on dialysis. 3. Diabetes mellitus. 4. Hypertension. 5 R hilar mass with bilateral pulmonary nodules DISCUSSION: Reviewed CT chest. Continue other home medications and dialysis. I will follow carefully. The etiology of her effusion and soft-tissue mass is not known I have attempted to call family/next of kin but no response OK to dc back to SNF Outpatient workup if family agrees Scott Dunn Omar Syed MD Sep 30, 2020 10:08
--- NOTE | 2020-09-30 11:55 | Infectious Diseases Prog Note ---
Assessment/Plan Assessment/Plan antibiotics : zosyn, po vancomycin A 1. Pneumonia COVID-19 negative. 2. Diabetes. 3. Hypertension. 4. Renal failure on dialysis. 5. C. difficile colitis 6. metastatic cancer 7. leucocytosis improving P 1. continue zosyn 3 more days 2. continue po vancomycin 7 more days 3. will follow up cultures Subjective ROS Limited/Unobtainable: Yes Allergies: Coded Allergies: No Known Allergies (Unverified , 09/23/20) Objective Last 24 Hour Vital Signs Date Time Temp Pulse Resp B/P (MAP) Pulse Ox O2 Delivery O2 Flow Rate FiO2 09/30/20 09:00 Nasal Cannula 2.0 09/30/20 08:00 97.3 77 20 159/73 (101) 94 09/30/20 07:34 99 Nasal Cannula 2.0 28 09/30/20 04:00 98.1 80 20 150/81 (104) 98 09/30/20 00:00 98.3 75 20 159/79 (105) 99 09/29/20 20:26 Nasal Cannula 2.0 09/29/20 20:00 97.6 74 20 137/79 (98) 94 09/29/20 19:33 98 Nasal Cannula 2.0 28 09/29/20 16:00 97.3 76 20 122/79 (93) 99 09/29/20 12:00 98.0 71 20 143/68 (93) 98 Height (Feet): 5 Height (Inches): 0.00 Weight (Pounds): 96 Respiratory/Chest: lungs clear Cardiovascular: normal rate, regular rhythm, no gallop/murmur Abdomen: soft, non tender Extremities: no edema Laboratory Tests Test 09/29/20 17:23 09/30/20 06:30 09/30/20 08:56 POC Whole Blood Glucose 150 MG/DL (74-106) H 126 MG/DL (74-106) H White Blood Count 9.3 K/UL (4.8-10.8) Red Blood Count 2.88 M/UL (4.20-5.40) L Hemoglobin 9.3 G/DL (12.0-16.0) L Hematocrit 30.7 % (37.0-47.0) L Mean Corpuscular Volume 107 FL (80-99) H Mean Corpuscular Hemoglobin 32.1 PG (27.0-31.0) H Mean Corpuscular Hemoglobin Concent 30.2 G/DL (32.0-36.0) L Red Cell Distribution Width 17.8 % (11.6-14.8) H Platelet Count 283 K/UL (150-450) Mean Platelet Volume 6.3 FL (6.5-10.1) L Neutrophils (%) (Auto) 76.1 % (45.0-75.0) H Lymphocytes (%) (Auto) 12.6 % (20.0-45.0) L Monocytes (%) (Auto) 9.5 % (1.0-10.0) Eosinophils (%) (Auto) 1.0 % (0.0-3.0) Basophils (%) (Auto) 0.9 % (0.0-2.0) Sodium Level 139 MMOL/L (136-145) Potassium Level 4.2 MMOL/L (3.5-5.1) Chloride Level 104 MMOL/L (98-107) Carbon Dioxide Level 26 MMOL/L (21-32) Anion Gap 9 mmol/L (5-15) Blood Urea Nitrogen 39 mg/dL (7-18) H Creatinine 6.2 MG/DL (0.55-1.30) H Estimat Glomerular Filtration Rate 6.5 mL/min (>60) Glucose Level 87 MG/DL (74-106) Uric Acid 6.4 MG/DL (2.6-7.2) Calcium Level 7.9 MG/DL (8.5-10.1) L Phosphorus Level 4.8 MG/DL (2.5-4.9) Magnesium Level 2.3 MG/DL (1.8-2.4) Total Bilirubin 0.4 MG/DL (0.2-1.0) Aspartate Amino Transf (AST/SGOT) 11 U/L (15-37) L Alanine Aminotransferase (ALT/SGPT) 10 U/L (12-78) L Alkaline Phosphatase 92 U/L (46-116) C-Reactive Protein, Quantitative 3.9 mg/dL (0.00-0.90) H Pro-B-Type Natriuretic Peptide > 73739 pg/mL (0-125) H Total Protein 6.2 G/DL (6.4-8.2) L Albumin 1.9 G/DL (3.4-5.0) L Globulin 4.3 g/dL Albumin/Globulin Ratio 0.4 (1.0-2.7) L Current Medications Medications (Trade) Dose Ordered Sig/Yeimi Route PRN Reason Start Time Stop Time Status Last Admin Dose Admin Acetaminophen (Tylenol) 650 mg Q4H PRN ORAL Temp >100.5 09/24/20 10:30 10/24/20 10:29 Ascorbic Acid (Vitamin C) 250 mg BID ORAL 09/24/20 18:00 10/24/20 17:59 09/29/20 17:19 Citalopram Hydrobromide (CeleXA) 20 mg DAILY ORAL 09/25/20 09:00 10/25/20 08:59 09/29/20 08:05 Dextrose (Dextrose 50%) 25 ml Q30M PRN IV Hypoglycemia 09/24/20 21:15 12/23/20 21:14 Dextrose (Dextrose 50%) 50 ml Q30M PRN IV Hypoglycemia 09/24/20 21:15 12/23/20 21:14 Gabapentin (Neurontin) 200 mg DAILY ORAL 09/30/20 09:00 10/30/20 08:59 Insulin Aspart (NovoLOG) BID SUBQ 09/25/20 09:00 12/24/20 08:59 09/29/20 17:25 Lactobacillus Acidophilus (Culturelle) 1 tab THREE TIMES A DAY ORAL 09/25/20 18:00 12/24/20 17:59 09/29/20 17:19 Pantoprazole (Protonix) 40 mg BID ORAL 09/25/20 18:00 10/25/20 08:59 09/29/20 17:19 Piperacillin Sod/ Tazobactam Sod 2.25 gm/Sodium Chloride 55 ml @ 110 mls/hr Q8HR IV 09/27/20 14:00 10/02/20 13:59 09/30/20 05:32 Sevelamer Carbonate (Renvela) 1,600 mg THREE TIMES A DAY ORAL 09/25/20 18:00 12/23/20 12:59 09/29/20 17:19 Vancomycin HCl (Firvanq) 250 mg FOUR TIMES A DAY ORAL 09/24/20 13:00 10/07/20 23:59 09/29/20 21:08 Vitamin B Complex/ Vit C/Folic Acid (Nephrovite) 1 tab DAILY ORAL 09/25/20 09:00 10/25/20 08:59 09/29/20 08:05 Erika Stiles MD Sep 30, 2020 11:55
[2020-09-30 12:06] VITALS: BP 156/75
--- NOTE | 2020-09-30 12:15 | Nephrology Progress Note ---
Assessment/Plan Problem List: (1) ESRD (end stage renal disease) (2) Diarrhea (3) C. difficile colitis (4) Diastolic CHF, chronic Assessment End-stage renal disease on hemodialysis 3 times a week Patient has a left upper chest permacath for dialysis access Patient has C. difficile colitis and watery diarrhea History of hypertension History of diabetes History of hyperlipemia History of cardiomyopathy, congestive heart failure Plan September 30: Labs reviewed. Due for dialysis today. CEA level is 7.5. Continue per consultants. September 29: Labs reviewed. Will order dialysis tomorrow. Medication list reviewed. September 28: Labs reviewed. Dialyzed September 26. Due for dialysis September 29 after reviewing the can panel. RN reports blood in the stool. GI consult/work- up in process. September 27: No can panel today. Dialyzed yesterday. Consultants notes reviewed. Medication reviewed. Check labs tomorrow. Dialysis as needed. September 26: Labs checked today. Due for dialysis today. Continue per consultants. Medications reviewed. Subjective ROS Limited/Unobtainable: No Constitutional: Reports: malaise Objective Objective Last 24 Hour Vital Signs Date Time Temp Pulse Resp B/P (MAP) Pulse Ox O2 Delivery O2 Flow Rate FiO2 09/30/20 12:06 97.3 75 20 156/75 (102) 94 09/30/20 09:00 Nasal Cannula 2.0 09/30/20 08:00 97.3 77 20 159/73 (101) 94 09/30/20 07:34 99 Nasal Cannula 2.0 28 09/30/20 04:00 98.1 80 20 150/81 (104) 98 09/30/20 00:00 98.3 75 20 159/79 (105) 99 09/29/20 20:26 Nasal Cannula 2.0 09/29/20 20:00 97.6 74 20 137/79 (98) 94 09/29/20 19:33 98 Nasal Cannula 2.0 28 09/29/20 16:00 97.3 76 20 122/79 (93) 99 Intake and Output 09/29/20 09/30/20 19:00 07:00 Intake Total 600 ml 200 ml Balance 600 ml 200 ml Intake Oral 600 ml 200 ml # Voids 2 # Bowel Movements 3 2 Current Medications Medications (Trade) Dose Ordered Sig/Yeimi Route PRN Reason Start Time Stop Time Status Last Admin Dose Admin Acetaminophen (Tylenol) 650 mg Q4H PRN ORAL Temp >100.5 09/24/20 10:30 10/24/20 10:29 Ascorbic Acid (Vitamin C) 250 mg BID ORAL 09/24/20 18:00 10/24/20 17:59 09/29/20 17:19 Citalopram Hydrobromide (CeleXA) 20 mg DAILY ORAL 09/25/20 09:00 10/25/20 08:59 09/29/20 08:05 Dextrose (Dextrose 50%) 25 ml Q30M PRN IV Hypoglycemia 09/24/20 21:15 12/23/20 21:14 Dextrose (Dextrose 50%) 50 ml Q30M PRN IV Hypoglycemia 09/24/20 21:15 12/23/20 21:14 Gabapentin (Neurontin) 200 mg DAILY ORAL 09/30/20 09:00 10/30/20 08:59 Insulin Aspart (NovoLOG) BID SUBQ 09/25/20 09:00 12/24/20 08:59 09/29/20 17:25 Lactobacillus Acidophilus (Culturelle) 1 tab THREE TIMES A DAY ORAL 09/25/20 18:00 12/24/20 17:59 09/29/20 17:19 Pantoprazole (Protonix) 40 mg BID ORAL 09/25/20 18:00 10/25/20 08:59 09/29/20 17:19 Piperacillin Sod/ Tazobactam Sod 2.25 gm/Sodium Chloride 55 ml @ 110 mls/hr Q8HR IV 09/27/20 14:00 10/02/20 13:59 09/30/20 05:32 Sevelamer Carbonate (Renvela) 1,600 mg THREE TIMES A DAY ORAL 09/25/20 18:00 12/23/20 12:59 09/29/20 17:19 Vancomycin HCl (Firvanq) 250 mg FOUR TIMES A DAY ORAL 09/24/20 13:00 10/07/20 23:59 09/29/20 21:08 Vitamin B Complex/ Vit C/Folic Acid (Nephrovite) 1 tab DAILY ORAL 09/25/20 09:00 10/25/20 08:59 09/29/20 08:05 Laboratory Tests 09/29/20 17:23: POC Whole Blood Glucose 150H 09/30/20 06:30: White Blood Count 9.3, Red Blood Count 2.88L, Hemoglobin 9.3L, Hematocrit 30.7L, Mean Corpuscular Volume 107H, Mean Corpuscular Hemoglobin 32.1H, Mean Corpuscular Hemoglobin Concent 30.2L, Red Cell Distribution Width 17.8H, Platelet Count 283, Mean Platelet Volume 6.3L, Neutrophils (%) (Auto) 76.1H, Lymphocytes (%) (Auto) 12.6L, Monocytes (%) (Auto) 9.5, Eosinophils (%) (Auto) 1.0, Basophils (%) (Auto) 0.9, Sodium Level 139, Potassium Level 4.2, Chloride Level 104, Carbon Dioxide Level 26, Anion Gap 9, Blood Urea Nitrogen 39H, Creatinine 6.2H, Estimat Glomerular Filtration Rate 6.5, Glucose Level 87, Uric Acid 6.4, Calcium Level 7.9L, Phosphorus Level 4.8, Magnesium Level 2.3, Total Bilirubin 0.4, Aspartate Amino Transf (AST/SGOT) 11L, Alanine Aminotransferase (ALT/SGPT) 10L, Alkaline Phosphatase 92, C-Reactive Protein, Quantitative 3.9H, Pro-B-Type Natriuretic Peptide > 71212M, Total Protein 6.2L, Albumin 1.9L, Globulin 4.3, Albumin/Globulin Ratio 0.4L 09/30/20 08:56: POC Whole Blood Glucose 126H Height (Feet): 5 Height (Inches): 0.00 Weight (Pounds): 96 General Appearance: no apparent distress Cardiovascular: normal rate Respiratory/Chest: decreased breath sounds Abdomen: soft, distended Objective No change Chris Puckett MD Sep 30, 2020 12:15
--- NOTE | 2020-09-30 13:15 | NUR ---
NURSE NOTES: HD, Young @ bedside to do HD. will cont to monitor.
[2020-09-30 16:00] VITALS: BP 167/41
--- NOTE | 2020-09-30 16:04 | NUR ---
CASE MANAGEMENT:REVIEW SI;C-DIFF. PNEUMONIA. 98.3 80 20 159/79 94% 2L NC H/H 8.9/30.3 BUN 39 CR 6.2 CRP 3.9 BNP >60665 ALB 1.9 IS;ZOSYN IV Q8 PROTONIX PO BID NEPHROVITE PO QD VANCOMYCIN PO QID MED SURG STATUS DCP;FROM [facility]
--- NOTE | 2020-09-30 16:27 | General Progress Note ---
Subjective Allergies: Coded Allergies: No Known Allergies (Unverified , 09/23/20) Subjective looks dry sob better isolation rectal bleeding this am Objective Last 24 Hour Vital Signs Date Time Temp Pulse Resp B/P (MAP) Pulse Ox O2 Delivery O2 Flow Rate FiO2 09/30/20 16:00 97.0 74 20 167/41 (83) 99 09/30/20 12:06 97.3 75 20 156/75 (102) 94 09/30/20 09:00 Nasal Cannula 2.0 09/30/20 08:00 97.3 77 20 159/73 (101) 94 09/30/20 07:34 99 Nasal Cannula 2.0 28 09/30/20 04:00 98.1 80 20 150/81 (104) 98 09/30/20 00:00 98.3 75 20 159/79 (105) 99 09/29/20 20:26 Nasal Cannula 2.0 09/29/20 20:00 97.6 74 20 137/79 (98) 94 09/29/20 19:33 98 Nasal Cannula 2.0 28 Intake and Output 09/29/20 09/30/20 19:00 07:00 Intake Total 600 ml 200 ml Balance 600 ml 200 ml Intake Oral 600 ml 200 ml # Voids 2 # Bowel Movements 3 2 Laboratory Tests 09/29/20 17:23: POC Whole Blood Glucose 150H 09/30/20 06:30: White Blood Count 9.3, Red Blood Count 2.88L, Hemoglobin 9.3L, Hematocrit 30.7L, Mean Corpuscular Volume 107H, Mean Corpuscular Hemoglobin 32.1H, Mean Corpu scular Hemoglobin Concent 30.2L, Red Cell Distribution Width 17.8H, Platelet Count 283, Mean Platelet Volume 6.3L, Neutrophils (%) (Auto) 76.1H, Lymphocytes (%) (Auto) 12.6L, Monocytes (%) (Auto) 9.5, Eosinophils (%) (Auto) 1.0, Basophils (%) (Auto) 0.9, Sodium Level 139, Potassium Level 4.2, Chloride Level 104, Carbon Dioxide Level 26, Anion Gap 9, Blood Urea Nitrogen 39H, Creatinine 6.2H, Estimat Glomerular Filtration Rate 6.5, Glucose Level 87, Uric Acid 6.4, Calcium Level 7.9L, Phosphorus Level 4.8, Magnesium Level 2.3, Total Bilirubin 0.4, Aspartate Amino Transf (AST/SGOT) 11L, Alanine Aminotransferase (ALT/SGPT) 10L, Alkaline Phosphatase 92, C-Reactive Protein, Quantitative 3.9H, Pro-B-Type Natriuretic Peptide > 11439U, Total Protein 6.2L, Albumin 1.9L, Globulin 4.3, Albumin/Globulin Ratio 0.4L 09/30/20 08:56: POC Whole Blood Glucose 126H Height (Feet): 5 Height (Inches): 0.00 Weight (Pounds): 96 General Appearance: confused, combative Neck: supple Cardiovascular: regular rhythm Respiratory/Chest: lungs clear Abdomen: normal bowel sounds, non tender, soft Assessment/Plan Assessment/Plan: 1 lgi bleeding with anemia 2 chf combined acute 3fluid overlad 4htn 5c diff colitis 6faiure of thrive 7severe malnutrition 8 possible lung ca dw dr enriquez 9 esrd on hd contact isolation cardio on case gi on the case fu labs Cesar Swanson MD Sep 30, 2020 16:27
--- NOTE | 2020-09-30 18:53 | NUR ---
NURSE HAND-OFF: Important Events on Shift:[HD TODAY 1L OUT; 120 BS; NO SIGNIFICANT CHANGE] Patient Status: [STABLE] Diet: [RENAL MEXH SOFT 1;1 FEEDER] Pending Orders: [NONE] Pending Results/Labs:[] Pending MD notification:[] Latest Vital Signs: Temperature 97.0 , Pulse 74 , B/P 167 /41 , Respiratory Rate 20 , O2 SAT 99 , Nasal Cannula, O2 Flow Rate 2.0 . Vital Sign Comment: [] Latest Ness Fall Score: 70 Fall Risk: High Risk Safety Measures: Call light Within Reach, Bed Alarm Zone 2, Side Rails Side Rails x3, Bed position Low and Locked. Fall Precautions: Yellow Socks Yellow Gown Door Sign Patient Fall Education Report given to [PORTER].
[2020-09-30 20:00] VITALS: BP 144/62
--- NOTE | 2020-09-30 20:00 | NUR ---
NURSE NOTES: Received patient awake, verbal,confused, resting in bed, comfortable.
[2020-10-01 04:17] VITALS: BP 138/68
[2020-10-01] MEDS: Piperacillin/Tazobactam 2.25 GM in NS 55 ML IV SCH ×2 (05:22→13:48)
--- NOTE | 2020-10-01 07:05 | NUR ---
HAND-OFF: Report given to Ana Paula Alonzo RN.
[2020-10-01 08:00] VITALS: BP 134/76
--- NOTE | 2020-10-01 08:00 | NUR ---
NURSE NOTES: patient awake and alert,respirations unlabored.02 on at 2L N/C.left upper Arm Dialysis catheter with strong bruit and thrill. Saline lock intact to right forearm intact.Breakfast at bedside will assist patient.Bed alarm on,call light within reach.
--- NOTE | 2020-10-01 08:05 | NUR ---
RD ASSESSMENT & RECOMMENDATIONS SEE CARE ACTIVITY FOR COMPLETE ASSESSMENT DAILY ESTIMATED NEEDS: Needs based on ESRD on HD 44kg 30-35 kcals/kg 2506-8760 total kcals 1.25-1.8 g protein/kg 55-79 g total protein Fluid per MD, on HD NUTRITION DIAGNOSIS: Increased kcal and pro needs r/t renal dysfunction as evidenced by pt w/ ESRD on HD. CURRENT DIET: Renal ms ground PO DIET RECOMMENDATIONS: Maintain renal diet/ texture per [employer] ADDITIONAL RECOMMENDATIONS: 1) Daily wts, calibrated bed scale 2) Rec [employer] eval for appropriate texture 3) Add NEPRO QD (425 kcal/ 19g pro per pack) 4) Monitor BG-> POC glu-> am BG previously low 72 Snacks in b/w meals as tolerated 5) Maintain nephrovite for skin integrity; add RADHA BID .
[2020-10-01] MEDS: Ascorbic Acid 500mg tab ORAL SCH ×2 (09:44→18:15)
[2020-10-01] MEDS: Nephrovite tab (Rena-Vite) ORAL SCH (09:45)
[2020-10-01] MEDS: Citalopram Hydrobromide 10mg Tab ORAL SCH (09:45)
[2020-10-01] MEDS: Lactobacillus-GG tablet ORAL SCH ×3 (09:45→18:15)
--- NOTE | 2020-10-01 09:46 | Pulmonology Progress Note ---
Subjective ROS Limited/Unobtainable: No Interval Events: None new Constitutional: Reports: no symptoms HEENT: Repors: no symptoms Respiratory: Reports: no symptoms Cardiovascular: Reports: no symptoms Gastrointestinal/Abdominal: Reports: diarrhea Genitourinary: Reports: no symptoms Neurologic: Reports: no symptoms Musculoskeletal: Reports: pain - abdominal Allergies: Coded Allergies: No Known Allergies (Unverified , 09/23/20) Objective Last 24 Hour Vital Signs Date Time Temp Pulse Resp B/P (MAP) Pulse Ox O2 Delivery O2 Flow Rate FiO2 10/01/20 08:45 95 Nasal Cannula 2.0 28 10/01/20 04:17 97.8 74 20 138/68 (91) 96 09/30/20 21:00 Nasal Cannula 2.0 09/30/20 20:00 98.0 75 22 144/62 (89) 97 09/30/20 19:48 97 Nasal Cannula 2.0 28 09/30/20 16:00 97.0 74 20 167/41 (83) 99 09/30/20 12:06 97.3 75 20 156/75 (102) 94 Intake and Output 09/30/20 10/01/20 19:00 07:00 Intake Total 720 ml 290 ml Output Total 1000 ml Balance -280 ml 290 ml Intake Oral 720 ml 180 ml IV Total 110 ml Hemodialysis UF 1000 ml # Voids 2 # Bowel Movements 3 1 General Appearance: no acute distress HEENT: normocephalic Respiratory: chest wall non-tender, lungs clear Cardiovascular: normal peripheral pulses, normal rate Abdomen: normal bowel sounds Current Medications Medications (Trade) Dose Ordered Sig/Yeimi Route PRN Reason Start Time Stop Time Status Last Admin Dose Admin Acetaminophen (Tylenol) 650 mg Q4H PRN ORAL Temp >100.5 09/24/20 10:30 10/24/20 10:29 Ascorbic Acid (Vitamin C) 250 mg BID ORAL 09/24/20 18:00 10/24/20 17:59 09/30/20 17:24 Citalopram Hydrobromide (CeleXA) 20 mg DAILY ORAL 09/25/20 09:00 10/25/20 08:59 09/29/20 08:05 Dextrose (Dextrose 50%) 25 ml Q30M PRN IV Hypoglycemia 09/24/20 21:15 12/23/20 21:14 Dextrose (Dextrose 50%) 50 ml Q30M PRN IV Hypoglycemia 09/24/20 21:15 12/23/20 21:14 Gabapentin (Neurontin) 200 mg DAILY ORAL 09/30/20 09:00 10/30/20 08:59 Insulin Aspart (NovoLOG) BID SUBQ 09/25/20 09:00 12/24/20 08:59 09/29/20 17:25 Lactobacillus Acidophilus (Culturelle) 1 tab THREE TIMES A DAY ORAL 09/25/20 18:00 12/24/20 17:59 09/30/20 17:24 Pantoprazole (Protonix) 40 mg BID ORAL 09/25/20 18:00 10/25/20 08:59 09/30/20 17:24 Piperacillin Sod/ Tazobactam Sod 2.25 gm/Sodium Chloride 55 ml @ 110 mls/hr Q8HR IV 09/27/20 14:00 10/02/20 13:59 10/01/20 05:22 Sevelamer Carbonate (Renvela) 1,600 mg THREE TIMES A DAY ORAL 09/25/20 18:00 12/23/20 12:59 09/30/20 17:24 Vancomycin HCl (Firvanq) 250 mg FOUR TIMES A DAY ORAL 09/24/20 13:00 10/07/20 23:59 09/30/20 21:14 Vitamin B Complex/ Vit C/Folic Acid (Nephrovite) 1 tab DAILY ORAL 09/25/20 09:00 10/25/20 08:59 09/29/20 08:05 Assessment/Plan Assessment/Plan IMPRESSION: 1. Pleural effusions; small bilateral 2. ESRD, on dialysis. 3. Diabetes mellitus. 4. Hypertension. 5 R hilar mass with bilateral pulmonary nodules DISCUSSION: Reviewed CT chest. Continue other home medications and dialysis. I will follow carefully. The etiology of her effusion and soft-tissue mass is not known I have attempted to call family/next of kin but no response OK to dc back to SNF Outpatient workup if family agrees Scott Dunn Omar Syed MD Oct 01, 2020 09:46
[2020-10-01] MEDS: Vancomycin oral 125mg/2.5ml ORAL SCH ×3 (09:49→18:15)
[2020-10-01] MEDS: NovoLOG Insulin Flexpen SUBQ SCH ×2 (09:56→17:59)
--- NOTE | 2020-10-01 10:32 | Nephrology Progress Note ---
Assessment/Plan Problem List: (1) ESRD (end stage renal disease) (2) Diarrhea (3) C. difficile colitis (4) Diastolic CHF, chronic Assessment End-stage renal disease on hemodialysis 3 times a week Patient has a left upper chest permacath for dialysis access Patient has C. difficile colitis and watery diarrhea History of hypertension History of diabetes History of hyperlipemia History of cardiomyopathy, congestive heart failure Plan October 01: No labs drawn today. Was dialyzed yesterday. Due for dialysis tomorrow. Continue per consultants. September 30: Labs reviewed. Due for dialysis today. CEA level is 7.5. Continue per consultants. September 29: Labs reviewed. Will order dialysis tomorrow. Medication list reviewed. September 28: Labs reviewed. Dialyzed September 26. Due for dialysis September 29 after reviewing the can panel. RN reports blood in the stool. GI consult/work- up in process. September 27: No can panel today. Dialyzed yesterday. Consultants notes reviewed. Medication reviewed. Check labs tomorrow. Dialysis as needed. September 26: Labs checked today. Due for dialysis today. Continue per consultants. Medications reviewed. Subjective ROS Limited/Unobtainable: No Constitutional: Reports: malaise, weakness Objective Objective Last 24 Hour Vital Signs Date Time Temp Pulse Resp B/P (MAP) Pulse Ox O2 Delivery O2 Flow Rate FiO2 10/01/20 08:45 95 Nasal Cannula 2.0 28 10/01/20 04:17 97.8 74 20 138/68 (91) 96 09/30/20 21:00 Nasal Cannula 2.0 09/30/20 20:00 98.0 75 22 144/62 (89) 97 09/30/20 19:48 97 Nasal Cannula 2.0 28 09/30/20 16:00 97.0 74 20 167/41 (83) 99 09/30/20 12:06 97.3 75 20 156/75 (102) 94 Intake and Output 09/30/20 10/01/20 19:00 07:00 Intake Total 720 ml 290 ml Output Total 1000 ml Balance -280 ml 290 ml Intake Oral 720 ml 180 ml IV Total 110 ml Hemodialysis UF 1000 ml # Voids 2 # Bowel Movements 3 1 No labs drawn today Height (Feet): 5 Height (Inches): 0.00 Weight (Pounds): 96 General Appearance: no apparent distress Cardiovascular: normal rate Respiratory/Chest: decreased breath sounds Abdomen: soft Objective No change Chris Puckett MD Oct 01, 2020 10:32
[2020-10-01 12:00] VITALS: BP 159/69
--- NOTE | 2020-10-01 12:13 | NUR ---
NURSE NOTES: Dialysis nurse Young with [facility] here and aware that Per DR Puckett order Dialysis for 10/02/20.
[2020-10-01] MEDS: Renvela 800mg Pkt ORAL SCH ×2 (14:08→18:26)
--- NOTE | 2020-10-01 14:33 | Infectious Diseases Prog Note ---
Assessment/Plan Assessment/Plan antibiotics : zosyn, po vancomycin A 1. Pneumonia COVID-19 negative. 2. Diabetes. 3. Hypertension. 4. Renal failure on dialysis. 5. C. difficile colitis 6. metastatic cancer 7. leucocytosis improving P 1. continue zosyn 2 more days 2. continue po vancomycin 6 more days 3. will follow up cultures Subjective Constitutional: Denies: fever, chills Respiratory: Denies: shortness of breath, dry cough Gastrointestinal/Abdominal: Denies: nausea, vomiting, diarrhea Musculoskeletal: Denies: pain Allergies: Coded Allergies: No Known Allergies (Unverified , 09/23/20) Objective Last 24 Hour Vital Signs Date Time Temp Pulse Resp B/P (MAP) Pulse Ox O2 Delivery O2 Flow Rate FiO2 10/01/20 12:00 97.7 76 19 159/69 (99) 100 10/01/20 09:00 Nasal Cannula 2.0 10/01/20 08:45 95 Nasal Cannula 2.0 28 10/01/20 08:00 97.7 77 20 134/76 (95) 92 10/01/20 04:17 97.8 74 20 138/68 (91) 96 09/30/20 21:00 Nasal Cannula 2.0 09/30/20 20:00 98.0 75 22 144/62 (89) 97 09/30/20 19:48 97 Nasal Cannula 2.0 28 09/30/20 16:00 97.0 74 20 167/41 (83) 99 Height (Feet): 5 Height (Inches): 0.00 Weight (Pounds): 96 Respiratory/Chest: lungs clear Cardiovascular: normal rate, regular rhythm, no gallop/murmur Abdomen: soft, non tender Extremities: no edema, other - left subclavian catheter Current Medications Medications (Trade) Dose Ordered Sig/Yeimi Route PRN Reason Start Time Stop Time Status Last Admin Dose Admin Acetaminophen (Tylenol) 650 mg Q4H PRN ORAL Temp >100.5 09/24/20 10:30 10/24/20 10:29 Ascorbic Acid (Vitamin C) 250 mg BID ORAL 09/24/20 18:00 10/24/20 17:59 10/01/20 09:44 Citalopram Hydrobromide (CeleXA) 20 mg DAILY ORAL 09/25/20 09:00 10/25/20 08:59 10/01/20 09:45 Dextrose (Dextrose 50%) 25 ml Q30M PRN IV Hypoglycemia 09/24/20 21:15 12/23/20 21:14 Dextrose (Dextrose 50%) 50 ml Q30M PRN IV Hypoglycemia 09/24/20 21:15 12/23/20 21:14 Gabapentin (Neurontin) 200 mg DAILY ORAL 09/30/20 09:00 10/30/20 08:59 10/01/20 09:44 Insulin Aspart (NovoLOG) BID SUBQ 09/25/20 09:00 12/24/20 08:59 10/01/20 09:56 Lactobacillus Acidophilus (Culturelle) 1 tab THREE TIMES A DAY ORAL 09/25/20 18:00 12/24/20 17:59 10/01/20 13:46 Pantoprazole (Protonix) 40 mg BID ORAL 09/25/20 18:00 10/25/20 08:59 10/01/20 09:44 Piperacillin Sod/ Tazobactam Sod 2.25 gm/Sodium Chloride 55 ml @ 110 mls/hr Q8HR IV 09/27/20 14:00 10/02/20 13:59 10/01/20 13:48 Sevelamer Carbonate (Renvela) 1,600 mg THREE TIMES A DAY ORAL 10/01/20 14:00 12/23/20 12:59 10/01/20 14:08 Vancomycin HCl (Firvanq) 250 mg FOUR TIMES A DAY ORAL 09/24/20 13:00 10/07/20 23:59 10/01/20 13:46 Vitamin B Complex/ Vit C/Folic Acid (Nephrovite) 1 tab DAILY ORAL 09/25/20 09:00 10/25/20 08:59 10/01/20 09:45 Erika Stiles MD Oct 01, 2020 14:33
--- NOTE | 2020-10-01 15:23 | NUR ---
DISCHARGE PLANNING PATIENT HAS BEEN REFERRED BACK TO [facility] P [phone] F [phone] S/W ALEXX, WILL CALL BACK ONCE CLINICALS ARE REVIEWED
--- NOTE | 2020-10-01 15:57 | General Progress Note ---
Subjective Allergies: Coded Allergies: No Known Allergies (Unverified , 09/23/20) Subjective sob better isolation rectal bleeding this am Objective Last 24 Hour Vital Signs Date Time Temp Pulse Resp B/P (MAP) Pulse Ox O2 Delivery O2 Flow Rate FiO2 10/01/20 12:00 97.7 76 19 159/69 (99) 100 10/01/20 09:00 Nasal Cannula 2.0 10/01/20 08:45 95 Nasal Cannula 2.0 28 10/01/20 08:00 97.7 77 20 134/76 (95) 92 10/01/20 04:17 97.8 74 20 138/68 (91) 96 09/30/20 21:00 Nasal Cannula 2.0 09/30/20 20:00 98.0 75 22 144/62 (89) 97 09/30/20 19:48 97 Nasal Cannula 2.0 28 09/30/20 16:00 97.0 74 20 167/41 (83) 99 Intake and Output 09/30/20 10/01/20 19:00 07:00 Intake Total 720 ml 290 ml Output Total 1000 ml Balance -280 ml 290 ml Intake Oral 720 ml 180 ml IV Total 110 ml Hemodialysis UF 1000 ml # Voids 2 # Bowel Movements 3 1 Height (Feet): 5 Height (Inches): 0.00 Weight (Pounds): 96 Neck: supple Cardiovascular: regular rhythm Respiratory/Chest: normal breath sounds Abdomen: non tender, soft Assessment/Plan Assessment/Plan: 1 lgi bleeding with anemia stable 2 chf combined acute 3fluid overlad 4htn 5c diff colitis 6faiure of thrive 7severe malnutrition 8 possible lung ca dw dr enriquez 9 esrd on hd contact isolation cardio on case gi on the case dc plan to snf dw Cesar Jackson MD Oct 01, 2020 15:57
[2020-10-01 16:00] VITALS: BP 161/79
--- NOTE | 2020-10-01 16:15 | NUR ---
*-*DISCHARGE PLANNED*-* PATIENT HAS BEEN ACCEPTED AND WILL BE DISCHARGE BACK TO: [facility] P [phone] FOR NURSE TO NURSE REPORT ROOM# 109.[facility] SET FOR 6PM S/W [place] [id number] S/W PATIENTS DAUGHTER, CHRIS LEWIS, WHO IS IN AGREEMENT WITH DISCHARGE PLAN.
[2020-10-01] MEDS ORDERED: Lisinopril 10mg tab ORAL SCH ×2 (17:30→18:15)
[2020-10-01 18:16] VITALS: BP 175/76
--- NOTE | 2020-10-01 19:15 | NUR ---
NURSE NOTES: Report given to Crystal ESTEVEZ at [facility].RN aware that patient is schedule for Dialysis on 10/02/20.RN verified that patient will receive Dialysis on 10/02/20.
--- NOTE | 2020-10-01 19:20 | NUR ---
NURSE HAND-OFF: PORTER ESTEVEZ Important Events on Shift:Discharge ,waiting for [facility] ] Patient Status: [] Diet: [] Pending Orders: [] Pending Results/Labs:[] Pending MD notification:[] Latest Vital Signs: Temperature 97.0 , Pulse 75 , B/P 175 /76 , Respiratory Rate 19 , O2 SAT 98 , Nasal Cannula, O2 Flow Rate 2.0 . Vital Sign Comment: [] Latest Ness Fall Score: 70 Fall Risk: High Risk Safety Measures: Call light Within Reach, Bed Alarm Zone 2, Side Rails Side Rails x3, Bed position Low and Locked. Fall Precautions: Yellow Socks Yellow Gown Door Sign Patient Fall Education Report given to [].
--- NOTE | 2020-10-01 20:15 | NUR ---
NURSE NOTES: Received patient being trasported to SNF by ambulance in stable condition.
--- NOTE | 2020-10-01 22:48 | Psychiatric Progress Note ---
Psychiatry Progress Note Psychiatry Progress Note Subjective the pt is doing better no agitation Neurological/Psychiatric: Reports: anxiety, depressed, emotional problems, weakness Allergies: Coded Allergies: No Known Allergies (Unverified , 09/23/20) Objective Data Height (Feet): 5 Height (Inches): 0.00 Weight (Pounds): 96 General Appearance: no apparent distress Additional Comments: alert, oriented times self, place. Mood is agitated. Affect is flat. Thought process, there is a paucity of thought content. Thought content, no suicidal or homicidal ideation. Cognition is impaired. Insight and judgment is impaired. Assessment/Plan [place] I: ASSESSMENT: [place] I Dementia. Anxiety disorder. Rule out acute metabolic encephalopathy. [place] II Deferred. [place] III As above. [place] IV Low. [place] V 20. PLAN: 1. Celexa 20 mg. 2. Haldol IM p.r.n. for agitation. 3. Discussed with the nurse. Status Narrative ASSESSMENT: [place] I Dementia. Anxiety disorder. Rule out acute metabolic encephalopathy. [place] II Deferred. [place] III As above. [place] IV Low. [place] V 20. PLAN: 1. Celexa 20 mg. 2. Haldol IM p.r.n. for agitation. 3. Discussed with the nurse. Assessment/Plan: ASSESSMENT: [place] I Dementia. Anxiety disorder. Rule out acute metabolic encephalopathy. [place] II Deferred. [place] III As above. [place] IV Low. [place] V 20. PLAN: 1. Celexa 20 mg. 2. Haldol IM p.r.n. for agitation. 3. Discussed with the nurse. Lona Tarango MD Oct 01, 2020 22:48
--- NOTE | 2020-10-03 12:51 | Discharge Summary ---
Discharge Summary Discharge Summary _ DATE OF ADMISSION: 09/23/2020 DATE OF DISCHARGE: 10/01/2020 DISCHARGED BY: Dr. Swanson REASON FOR ADMISSION: 75 years old female with past medical history of end-stage renal disease, on hemodialysis, congestive heart failure, presented with altered mental status. According to the alf staff, earlier after dialysis she became more lethargic , confused and nonverbal. Patient subsequently was sent for evaluation for evaluation . patient requires supplemental oxygen . CT of the head revealed no acute intracranial pathology. Chest x-ray demonstrated cardiomegaly with bilateral interstitial edema. Laboratory work-up revealed leukocytosis and anemia, BUN 34, creatinine 5.3 , consistent with known history of end-stage renal disease. Lactic acid 1.6 Troponin negative , EKG revealed sinus rhythm no acute ischemic changes, no ectopy. In emergency department patient received empiric antibiotic and admitted for further management. CONSULTANTS: pulmonary Dr. Krause ID specialist Dr. Stiles licensed clinician Dr. Pukcett psychiatrist Dr. Tarango [facility] COURSE: Patient admitted and continued on broad-spectrum antibiotic as per ID specialist recommendation. Rapid COVID-19 was negative. Stool for C. difficile was positive. Patient was kept in isolation and treated with oral vancomycin. Patient was also on Zosyn for pneumonia. Patient will need to continue Zosyn and oral vancomycin at the facility as specified by ID specialist to complete the course. Leukocytosis and low-grade fever , initially present , -resolved . Venous duplex bilateral lower extremity revealed no evidence of acute DVT. Supplemental oxygen provided and titrated to keep pulse oximetry above 92%. Pulmonary toilet provided. CT scan of the chest revealed multiply bilateral pulmonary nodules, suspicious for metastatic malignancy. Bilateral pleural effusion with resulting basilar compressive atelectatic changes. Follow-up chest x-ray revealed improved retrocardiac consolidation and bilateral interstitial edema over 2 days. Game Producer attempted to contact the family without no response . Game Producer recommended discharge to group home facility and continue with outpatient work-up if family agrees. Hemodialysis provided as per licensed clinician recommendations with close monitoring of volumes, renal parameters and electrolytes. Patient received spot dose of Lasix. Echocardiogram revealed preserved ejection fraction of 55%. Moderately elevated left atrial pressure grade 2. Moderate mitral and severe tricuspid regurgitation. Right ventricular systolic pressure of 86 consistent with severe pulmonary hypertension. Hemoglobin and hematocrit were closely monitored with goal to keep hemoglobin above 7; prior to discharge hemoglobin 9.3 , hematocrit 30.7. Patient will need further evaluation for anemia and possible GI bleeding as outpatient , if family agrees. GI prophylaxis provided . SNF medication continued. Blood pressure and blood sugar were closely monitored and managed with current regimen, remained stable. Supportive care provided. Psychiatrist followed. Psychiatric medication regimen provided as per psychiatrist recommendation. Patient was ready patient stabilized and was ready for transfer back to group home facility for continuation of care FINAL DIAGNOSES: Pneumonia C. difficile colitis End-stage renal disease , on hemodialysis Right hilar mass with bilateral pulmonary nodules Possible lung cancer Lower GI bleeding with anemia CHF diastolic ,chronic Hypertension Severe malnutrition Diabetes mellitus Dementia Anxiety disorder Rule out acute metabolic encephalopathy DISCHARGE MEDICATIONS: See Medication Reconciliation list. DISCHARGE INSTRUCTIONS: Patient was discharged to the group home facility. Follow up with medical doctor at the facility. I have been assigned to dictate discharge summary for this account. I was not involved in the patient's management. Sylvia Valdes NP Oct 03, 2020 12:51
== END 2020-10-01 20:20 | DRG 193 ==
LOC: EDBD 20:08 → EMR 20:25 → 2E 21:27 → EDBEDREQ 09-24 06:17 → EMR 09-24 08:35 → 4E 09-26 23:43
PROC: 5A1D70Z Performance of Urinary Filtration, Intermittent, Less than 6 Hours Per Day (ICD-10-PCS; principal; 2020-09-26)
DX: J18.9 Pneumonia, unspecified organism (principal); E43 Unspecified severe protein-calorie malnutrition; N18.6 End stage renal disease; G93.41 Metabolic encephalopathy; I13.2 Hypertensive heart and chronic kidney disease with heart failure and with stage 5 chronic kidney disease, or end stage renal disease; Z68.1 Body mass index [BMI] 19.9 or less, adult; A04.72 Enterocolitis due to Clostridium difficile, not specified as recurrent; I50.32 Chronic diastolic (congestive) heart failure; K92.2 Gastrointestinal hemorrhage, unspecified; C78.02 Secondary malignant neoplasm of left lung; C78.01 Secondary malignant neoplasm of right lung; E78.5 Hyperlipidemia, unspecified; Z99.2 Dependence on renal dialysis; E11.22 Type 2 diabetes mellitus with diabetic chronic kidney disease; F03.90 Unspecified dementia, unspecified severity, without behavioral disturbance, psychotic disturbance, mood disturbance, and anxiety; F41.9 Anxiety disorder, unspecified; D50.0 Iron deficiency anemia secondary to blood loss (chronic); Z22.322 Carrier or suspected carrier of Methicillin resistant Staphylococcus aureus; I34.0 Nonrheumatic mitral (valve) insufficiency; I36.1 Nonrheumatic tricuspid (valve) insufficiency; Z20.828 Contact with and (suspected) exposure to other viral communicable diseases; C80.1 Malignant (primary) neoplasm, unspecified
CPT/HCPCS: 36415; 70450; 71045; 71250; 80053; 80061; 82378; 82550; 82553; 82962; 82977; 83036; 83605; 83735; 83880; 84100; 84484; 84550; 85025; 86140; 86706; 87081; 87324; 93005; 93306; 93970; 96365; 96368; 99285; J1815; U0002

== ENCOUNTER 2020-10-27 08:16 | Inpatient (IN) | payer MEDICARE, OTHER ==
[~2020-10-27] VITALS: Ht 154.9 cm; Wt 41.7 kg
[~2020-10-27 08:16] MED LIST: ASCORBIC ACID500 MG ORAL; ATORVASTATIN CA40 MG ORAL; Azithromycin 500 MG in NS 275 ML IVPB ONE; CITALOPRAM HBR20 M1 ORAL; GABAPENTIN100 MG ORAL; LANTUS SOL100 UNIT/1 SUBQ; NEPHROVITE1 TAB ORAL; PANTOPRAZOLE SO40 MG ORAL; RENVELA2.4 GM ORAL; SENSIPAR30 MG ORAL; cefTRIAXone 1 GM in NS 55 ML IV ONE; dexAMETHasone 10mg/ml Inj IV ONE
--- NOTE | 2020-10-27 08:16 | NUR ---
ED Nurse Note:pt. was BIBA from SNF with respiratory distress, covid positive and hypoglycemia, pt. is A/Ox2, awake, placed on iso room and well testing operator
[2020-10-27] MEDS ORDERED: ZOFRAN4 M3 ORAL (08:23)
--- NOTE | 2020-10-27 08:27 | Emergency Room Report ---
History of Present Illness General Chief Complaint: Dyspnea/Respdistress Source: Patient, EMS Present Illness HPI Patient brought by EMS for shortness of breath. Apparently she was 88% on room air at the facility. On 6 L she was 100% saturated. She complains of cough but denies any pain. The paramedics checked blood glucose in the field and it was low. They gave her glucose paste. The patient tested positive for COVID-19 several days ago (October 21). She is a dialysis patient and has missed dialysis because of this. The patient is unable to give a full history. Patient denies nausea, vomiting or diarrhea. She denies dysuria. There were unable to establish an IV in the field. The patient was admitted early September. Discharge diagnoses: Pneumonia C. 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: Yes COVID-19 Screening: Positive COVID-19 COVID-19 Testing Source: 10/21 @ SNF Patient History Limited by: medical condition Past Medical History: see triage record, old chart reviewed Social History: Denies: smoking Social History Narrative born in [place] -[facility]pc facility, full code Reviewed Nursing Documentation: PMH: Agreed; PSxH: Agreed Nursing Documentation-PMH Hx Cardiac Problems: Yes - cardiomegaly, chf, Hx Hypertension: Yes Hx Diabetes: Yes Hx Gastrointestinal Problems: Yes Hx Weakness: Yes Hx Fatigue: Yes Review of Systems All Other Systems: limited Physical Exam Vital Signs Date Time Temp Pulse Resp B/P (MAP) Pulse Ox O2 Delivery O2 Flow Rate FiO2 10/27/20 08:10 98.4 80 28 136/75 (95) 96 Nasal Cannula 10.0 Sp02 EP Interpretation: reviewed, abnormal - Interpreted as low by me General Appearance: alert, thin, other - Frail and soft-spoken, Chronically Ill Head: normocephalic, atraumatic Eyes: bilateral eye PERRL, bilateral eye Scleral Injection, bilateral eye other - Slight discharge from eyes ENT: moist mucus membranes Neck: supple Respiratory: decreased breath sounds, crackles, other - Dialysis catheter Cardiovascular #1: regular rate, rhythm Cardiovascular #2: 2+ radial (L) Gastrointestinal: non tender, decreased bowel sounds Genitourinary: no CVA tenderness Musculoskeletal: other Neurologic: motor weakness Psychiatric: depressed affect Skin: warm/dry Procedures Critical Care Time Critical Care Time Total Critical Care Time: 30 min bedside evaluation and treatment excludes procedures (EKG). Reason for critical care: Hypoxia, bilateral infiltrates, hyperglycemia, end- stage renal disease, discussion with admitting physician Possible complications: hypotension, hypertension, NC, shock, arrhythmias, metabolic acidosis, end organ damage, respiratory failure. Interventions: D50 water, judicious fluid replacement, antibiotic administration, discussion with admitting physician Course: Patient presented with hypoxia. She was also hyperglycemic in the field. D50 water was administered after immediate discussion with RN. Due to hypoxia and positive Covid dexamethasone and antibiotics administered. T ransient hypotension treated with judicious fluid replacement. Repeat evaluation with improvement in vital signs including blood pressure. Contact with admitting physician Consultations: nursing staff, EMS, admitting physician Performed by: Dr. Lucia Tolerated well condition = serious Medical Decision Making Diagnostic Impression: Primary Impression: Pneumonia due to COVID-19 virus Additional Impressions: Hypoglycemia End stage renal disease on dialysis Transient hypotension ER Course Patient presents with hypoxia and respiratory difficulty with a history of testing positive for COVID-19. In addition she has missed dialysis. Differential includes pulmonary edema, Covid pneumonia, amongst others. Patient evaluated with EKG, chest x-ray and labs. Concern over missed dialysis. Patient placed on a diagnostic cardiac sonographer. Small fluid bolus ordered. Dexamethasone, azithromycin and Rocephin ordered also. Initial Accu-Chek 30. 1 amp of D50 is administered. Repeat blood sugar 90. EKG without injury. Chest x-ray bilateral infiltrates and dialysis catheter. Normal white count CMP with evidence of chronic renal failure with potassium of 5.5.. Elevated BNP. Troponin negative. Lactic acid 1.2. Patient transiently hypotensive however improved with fluid bolus. Improved with treatment. Admitted to telemetry unit. Discussed with admitting physician. Laboratory Tests Test 10/27/20 08:45 10/27/20 16:29 White Blood Count 9.0 K/UL (4.8-10.8) Red Blood Count 3.63 M/UL (4.20-5.40) L Hemoglobin 11.4 G/DL (12.0-16.0) L Hematocrit 34.9 % (37.0-47.0) L Mean Corpuscular Volume 96 FL (80-99) Mean Corpuscular Hemoglobin 31.5 PG (27.0-31.0) H Mean Corpuscular Hemoglobin Concent 32.7 G/DL (32.0-36.0) Red Cell Distribution Width 18.8 % (11.6-14.8) H Platelet Count 151 K/UL (150-450) Mean Platelet Volume 7.6 FL (6.5-10.1) Neutrophils (%) (Auto) 84.1 % (45.0-75.0) H Lymphocytes (%) (Auto) 9.0 % (20.0-45.0) L Monocytes (%) (Auto) 5.9 % (1.0-10.0) Eosinophils (%) (Auto) 0.5 % (0.0-3.0) Basophils (%) (Auto) 0.5 % (0.0-2.0) Prothrombin Time 13.1 SEC (9.30-11.50) H Prothrombin Time INR 1.2 (0.9-1.1) H Activated Partial Thromboplast Time 35 SEC (23-33) H D-Dimer 3.08 mg/L FEU (0.00-0.49) H Sodium Level 139 MMOL/L (136-145) Potassium Level 5.5 MMOL/L (3.5-5.1) H Chloride Level 101 MMOL/L (98-107) Carbon Dioxide Level 25 MMOL/L (21-32) Anion Gap 13 mmol/L (5-15) Blood Urea Nitrogen 73 mg/dL (7-18) H Creatinine 6.9 MG/DL (0.55-1.30) H Estimated Glomerular Filtration Rate 5.8 mL/min (>60) Glucose Level 200 MG/DL (74-106) H Lactic Acid Level 1.00 mmol/L (0.4-2.0) Calcium Level 7.5 MG/DL (8.5-10.1) L Ferritin > 2000 NG/ML (8-388) H Total Bilirubin 0.5 MG/DL (0.2-1.0) Aspartate Amino Transferase (AST) 39 U/L (15-37) H Alanine Aminotransferase (ALT) 4 U/L (12-78) L Alkaline Phosphatase 98 U/L (46-116) Lactate Dehydrogenase 494 U/L (81-234) H Total Creatine Kinase 85 U/L (26-308) Creatine Kinase MB 1.5 NG/ML (0.0-3.6) Creatine Kinase MB Relative Index 1.7 Troponin I 0.004 ng/mL (0.000-0.056) C-Reactive Protein, Quantitative 16.1 mg/dL (0.00-0.90) H Pro-B-Type Natriuretic Peptide > 00820 pg/mL (0-125) H Total Protein 8.9 G/DL (6.4-8.2) H Albumin 2.5 G/DL (3.4-5.0) L Globulin 6.4 g/dL Albumin/Globulin Ratio 0.4 (1.0-2.7) L Lipase 138 U/L (73-393) POC Whole Blood Glucose 72 MG/DL (74-106) L Rhythm Strip Diag. Results EP Interpretation: yes Rhythm: NSR, no PVC's, no ectopy Chest X-Ray Diagnostic Results Chest X-Ray Diagnostic Results : Chest X-Ray Ordered: Yes # of Views/Limited/Complete: 1 View Indication: Shortness of Breath EP Interpretation: Yes Interpretation: no pneumothorax, other - Dialysis catheter, bilateral infiltrates worse on the right, questionable effusion left Impression: Other PA Scribe Text Electronically signed by Cipriano Lucia MD Last Vital Signs Date Time Temp Pulse Resp B/P (MAP) Pulse Ox O2 Delivery O2 Flow Rate FiO2 10/27/20 16:00 65 10/27/20 16:00 97.3 20 132/65 (87) 96 10/27/20 13:45 Nasal Cannula 3.0 Status: improved Cipriano Lucia MD Oct 27, 2020 08:27
--- NOTE | 2020-10-27 08:56 | NUR ---
ED Nurse Note: 30, notified and dextrose given, blood and cultures sent to labs
[2020-10-27 09:13] LABS: BASOPHILS % (AUTO) 0.5 % (0.0-2.0); EOSINOPHILS % (AUTO) 0.5 % (0.0-3.0); HEMATOCRIT 34.9 % (37.0-47.0); HEMOGLOBIN 11.4 G/DL (12.0-16.0); MEAN CORPUSCULAR VOLUME 96 FL (80-99); MONOCYTES % (AUTO) 5.9 % (1.0-10.0); NEUTROPHILS % (AUTO) 84.1 % (45.0-75.0); PLATELET COUNT 151 K/UL (150-450); RED BLOOD COUNT 3.63 M/UL (4.20-5.40); RED CELL DISTRIBUTION WIDTH 18.8 % (11.6-14.8)
--- NOTE | 2020-10-27 09:20 | Diagnostic Imaging Report ---
EXAM: XR Chest, 1 View CLINICAL HISTORY: DYSPNEA TECHNIQUE: Frontal view of the chest. COMPARISON: Chest radiograph September 25, 2020. FINDINGS/IMPRESSION: Dual lumen central venous catheter terminates at the cavoatrial junction. Bilateral airspace consolidations, preferentially involving the right lung, consistent with multifocal infiltrate. Overall, these findings have worsened when compared to chest radiograph September 25, 2020. Suspected, small left pleural effusion. Mild vascular congestion. No pneumothorax. Cardiomegaly. Calcified aorta and tracheal bronchial tree. Diffuse osseous demineralization.
[2020-10-27 09:22] LABS: INR 1.2 (0.9-1.1)
[2020-10-27 09:29] VITALS: BP 109/45
--- NOTE | 2020-10-27 09:33 | NUR ---
ED Nurse Note:pt. is anuric, had small BM, swabs are done, given iv meds and fluids, she has dialysis permacath on left chest wall, skin is intact exept for perianal and sacral errosion
[2020-10-27 09:55] LABS: ANION GAP 13 mmol/L (5-15); BLOOD UREA NITROGEN 73 mg/dL (7-18); CALCIUM 7.5 MG/DL (8.5-10.1); CARBON DIOXIDE 25 MMOL/L (21-32); CHLORIDE 101 MMOL/L (98-107); CREATININE 6.9 MG/DL (0.55-1.30); POTASSIUM 5.5 MMOL/L (3.5-5.1); SODIUM 139 MMOL/L (136-145)
[2020-10-27 10:07] LABS: ALBUMIN 2.5 G/DL (3.4-5.0); ALBUMIN/GLOBULIN RATIO 0.4 (1.0-2.7); ALKALINE PHOSPHATASE 98 U/L (46-116); ASPARTATE AMINO TRANSFERASE 39 U/L (15-37); BILIRUBIN,TOTAL 0.5 MG/DL (0.2-1.0); CKMB 1.5 NG/ML (0.0-3.6); CREATINE KINASE 85 U/L (26-308); FERRITIN > 2000 NG/ML (8-388); LACTATE DEHYDROGENASE 494 U/L (81-234)
[2020-10-27 10:27] LABS: ALANINE AMINOTRANSFERASE 4 U/L (12-78)
[2020-10-27 10:47] VITALS: BP 101/43
[2020-10-27 11:33] VITALS: BP 107/60
--- NOTE | 2020-10-27 12:47 | NUR ---
ED Nurse Note:called report to tele, given to Josue RN, pt. taken up stairs
--- NOTE | 2020-10-27 13:37 | NUR ---
NURSE NOTES: I called for admission orders for Dr. Cesar Swanson and spoke with Yessenia and she instructed me to text Dr. Cesar Swanson at [phone]. Addendum: 10/27/20 at 1341 by EMETERIO LARSON RN Texted Dr. Cesar Swanson for admission orders as instructed.
--- NOTE | 2020-10-27 14:14 | NUR ---
NURSE NOTES: Leaving for schedule lunch time. Will complete admission upon return.
[2020-10-27 16:00] VITALS: BP 132/65
--- NOTE | 2020-10-27 16:37 | NUR ---
NURSE NOTES: Notified Dr. Erika Stiles that she has been added as a consult. Notified Dr. Chris Puckett that he has been added as a consult. Received orders for hemodialysis for 10/27/20, scheduled with Jean at [facility] for 10/27/20.
--- NOTE | 2020-10-27 18:50 | NUR ---
NURSE HAND-OFF REPORT: Important Events on Shift: Admission, hemodialysis, potassium=5.5, pulmonary congestion, patient does not have a good appetite, please feed, 1:1, received in ER, 500 ml. normal saline, bolus, 1 gram Rocephin IVPB, 500 mg. Azithromycin IVPB, 10 ml Decadron IV. Lactic acide is OK, BUN/Creatinen=73, 6.9, respectively. Patient previously admitted to [facility] discharged 10/21/20. Prior to that, patient was hospitalized two weeks prior to that, starting in August of 2020 per Angelo Downey. On 2 liters nasal cannula. EKG shows normal sinus rhythm. Ivermectin ordered by Dr. Elyse Stiles. Patient Status: Stable Diet: Renal, poor apptetite. Just received order for megace. Pending Orders: am labs. Pending Results/Labs:N/A Pending MD notification:N/A Latest Vital Signs: Temperature 97.3 , Pulse 65 , B/P 132 /65 , Respiratory Rate 20 , O2 SAT 96 , Nasal Cannula, O2 Flow Rate 3.0 . Vital Sign Comment: Stable EKG Rhythm: Sinus Rhythm Rhythm change?: N MD Notified?: - MD Response: Latest Ness Fall Score: 15 Fall Risk: Low Risk Safety Measures: Call light Within Reach, Bed Alarm Zone 1, Side Rails Side Rails x3, Bed position Low and Locked. Fall Precautions: Yellow Socks Report given to Kathe Mcduffie RN.
--- NOTE | 2020-10-27 19:14 | NUR ---
NURSE NOTES: Endorsing Ivermectin to Reta Archuleta RN, to give when available.
[2020-10-27 20:00] VITALS: BP 142/63
--- NOTE | 2020-10-27 20:31 | NUR ---
NURSE NOTES: Ivermectin 9mg PO ONCE administered after scheduled time because pt was receiving HD. Per pharmacist, arline Beck to administer now. Will note and carry out.
--- NOTE | 2020-10-27 20:45 | History and Physical Report ---
DATE OF ADMISSION: 10/27/2020 HISTORY OF PRESENT ILLNESS: This is a 75-year-old female who came to the emergency room for having generalized weakness, dehydration, poor p.o. intake. Patient came from home where she has been not eating well and has been not dialyzed for last 4 days. Patient currently has diarrhea, altered mental status, history of CHF, chronic end-stage renal disease. Patient's inspector poising was called. Patient is currently under dialysis. She also was found as COVID test positive. PAST MEDICAL HISTORY: Significant for end-stage renal disease, CHF, hypertension, history of C. diff colitis. MEDICATIONS: She is taking Lipitor, Sensipar, Celexa, gabapentin, insulin, Lantus, Zofran, Protonix, vitamin B complex. ALLERGIES: NKA. FAMILY HISTORY: Noncontributory. SOCIAL HISTORY: Patient lives in a skilled nursing. PHYSICAL EXAMINATION: GENERAL: This is an elderly female, currently having a dialysis, nonverbal, but sleepy, comfortable. Has poor p.o. intake. VITAL SIGNS: Blood pressure is 132/65, pulse 66, respirations 20s, temperature 97.3. SKIN: Poor skin turgor. HEENT: Eyes are closed. NECK: Supple. CHEST: Bilateral crackles. CARDIOVASCULAR: Regular rhythm. No gallop. No murmur. ABDOMEN: Soft. Positive bowel sounds. EXTREMITIES: No edema. GENITOURINARY: Deferred. LABORATORY DATA: White count 9, hemoglobin 11, hematocrit 34, platelets 151. Chemistry panel, sodium 139, potassium 5.5, BUN 73, creatinine 6.9, glucose is 200, calcium 7.5. Ferritin level 2000. Troponins are 0.004. BNP was 35,000. C-reactive protein 16. Lipase 138. Her chest x-ray showed patient has bilateral airspace consolidation involving the right lung consistent with multifocal . Overall, these findings worsened complete chest radiograph. EKG, nonspecific ST and T-wave changes. ASSESSMENT: 1. COVID pneumonia. 2. CHF, diastolic failure. 3. End-stage renal disease, on hemodialysis. 4. Failure to thrive. 5. Poor compliance. 6. Diabetes. 7. Hyperkalemia. PLAN: We will admit on telemetry bed. Patient is starting dialysis. Add antibiotics. Continue azithromycin, dexamethasone, Megace. Consider ceftriaxone. Consider Cardiology consult as well as consider Nephrology consult with Dr. Puckett. Patient is Full Code. Patient is critically sick. Keep in isolation for COVID. Alphonse Swanson M.D. DR: LIBORIO JOB#: [id number] CC:
[2020-10-28] VITALS: BP 144/59
--- NOTE | 2020-10-28 00:14 | NUR ---
NURSE NOTES: Received pt and report from ZENAIDA Grayson. Observed pt resting in bed with both eyes open and receiving HD with dialysis nurse at bedside. Pt is A/Ox2-3. flaking roll operator is in placed; pt is NSR. IV site intact, asymptomatic, and patent. Bed is in the lowest position and locked. Call light and bedside table is within reach. No signs/symptoms of acute distress noted. Will continue plan of care. Addendum: 10/28/20 at 0020 by Rosanna Holland Mai, RN received pt 10/27/20 @ 1930
--- NOTE | 2020-10-28 01:18 | NUR ---
NURSE NOTES: Notified Dr. Swanson regarding pt's elevated BS. Recommended insulin sliding scale. Awaiting call back.
[2020-10-28 04:00] VITALS: BP 146/64
--- NOTE | 2020-10-28 05:57 | NUR ---
NURSE NOTES: Contacted Dr. Swanson again regarding insulin sliding scale. Awaiting call back.
--- NOTE | 2020-10-28 06:45 | NUR ---
NURSE NOTES: Received orders for NovoLog sliding scale subQ and blood sugar checks AC+HS from Dr. Swanson. Will note and carry out.
[2020-10-28] MEDS: NovoLOG Insulin Flexpen SUBQ SCH ×4 (06:58→21:13)
[2020-10-28 07:11] LABS: ALANINE AMINOTRANSFERASE 12 U/L (12-78); ALBUMIN 2.1 G/DL (3.4-5.0); ALBUMIN/GLOBULIN RATIO 0.4 (1.0-2.7); ALKALINE PHOSPHATASE 84 U/L (46-116); ANION GAP 8 mmol/L (5-15); ASPARTATE AMINO TRANSFERASE 26 U/L (15-37); BILIRUBIN,TOTAL 0.3 MG/DL (0.2-1.0); BLOOD UREA NITROGEN 43 mg/dL (7-18); CALCIUM 7.5 MG/DL (8.5-10.1); CARBON DIOXIDE 31 MMOL/L (21-32); CHLORIDE 100 MMOL/L (98-107); CHOLESTEROL 142 MG/DL (< 200); CREATININE 4.9 MG/DL (0.55-1.30); GAMMA GLUTAMYL TRANSPEPTIDASE 37 U/L (5-85); HDL CHOLESTEROL 53 MG/DL (40-60); PHOSPHORUS 5.1 MG/DL (2.5-4.9); POTASSIUM 3.9 MMOL/L (3.5-5.1); SODIUM 139 MMOL/L (136-145); TRIGLYCERIDES 126 MG/DL (30-150)
[2020-10-28 07:26] LABS: HEMATOCRIT 35.4 % (37.0-47.0); HEMOGLOBIN 11.5 G/DL (12.0-16.0); MEAN CORPUSCULAR VOLUME 97 FL (80-99); PLATELET COUNT 169 K/UL (150-450); RED BLOOD COUNT 3.65 M/UL (4.20-5.40); RED CELL DISTRIBUTION WIDTH 18.1 % (11.6-14.8); WHITE BLOOD COUNT 6.8 K/UL (4.8-10.8)
[2020-10-28 07:43] LABS: % IRON SATURATION 23 % (15-50); IRON 26 ug/dL (50-175); TOTAL IRON BINDING CAPACITY 113 ug/dL (250-450)
--- NOTE | 2020-10-28 07:54 | NUR ---
NURSE HAND-OFF REPORT: Important Events on Shift: Received insulin sliding scale order from Dr. Swanson. Noted and carried out. Patient Status: Stable Diet: Renal diet Pending Orders: Venous duplex Pending Results/Labs: AM Labs Pending MD notification: N Latest Vital Signs: Temperature 97.9 , Pulse 68 , B/P 146 /64 , Respiratory Rate 19 , O2 SAT 99 , Nasal Cannula, O2 Flow Rate 2.0 . EKG Rhythm: Sinus Rhythm Rhythm change?: N Latest Ness Fall Score: 35 Fall Risk: Medium Risk Safety Measures: Call light Within Reach, Bed Alarm Zone 2, Side Rails Side Rails x2, Bed position Low and Locked. Fall Precautions: Yellow Socks Yellow Gown Door Sign Patient Fall Education Report given to ZENAIDA Duarte.
[2020-10-28 08:00] VITALS: BP 148/67
--- NOTE | 2020-10-28 08:28 | NUR ---
NURSE NOTES: pt was in bed and eating breakfast. bed was locked in lowest position, call light within. IV intact and in patent. pt was on micro computer specialist showing no signs of cardiac or respiratory distress. pt has no complaints of pain.
[2020-10-28] MEDS ORDERED: cefTRIAXone 1 GM in D5W 55 ML IVPB SCH (09:00)
[2020-10-28] MEDS ORDERED: Azithromycin 500 MG in D5W 275 ML IV SCH (09:00)
--- NOTE | 2020-10-28 09:35 | NUR ---
NURSE NOTES: azithromycin was not given pt pulled out IV
[2020-10-28] MEDS: Megace 400mg/10ml Susp ORAL SCH (09:53)
[2020-10-28] MEDS: dexAMETHasone 10mg/ml Inj IV SCH (10:06)
--- NOTE | 2020-10-28 11:01 | Consultation ---
Consult Note Consult Note I was consulted last evening to arrange for patient's dialysis by Dr. Swanson Patient presented to emergency room. She has end-stage renal disease. She had did not receive dialysis for 4 days. Patient has a permacath for dialysis. Emergency room note: Chief Complaint: Dyspnea/Respdistress Patient brought by EMS for shortness of breath. Apparently she was 88% on room air at the facility. On 6 L she was 100% saturated. She complains of cough but denies any pain. The paramedics checked blood glucose in the field and it was low. They gave her glucose paste. The patient tested positive for COVID-19 several days ago (October 21). She is a dialysis patient and has missed di alysis because of this. The patient is unable to give a full history. Patient denies nausea, vomiting or diarrhea. She denies dysuria. There were unable to establish an IV in the field. The patient was admitted early September. Discharge diagnoses: Pneumonia C. difficile colitis End-stage renal disease , on hemodialysis Right hilar mass with bilateral pulmonary nodules Possible lung cancer Lower GI bleeding with anemia CHF diastolic ,chronic Hypertension Severe malnutrition Diabetes mellitus Dementia Anxiety disorder Rule out acute metabolic encephalopathy Allergies: No Known Allergies (Unverified , 09/23/20) COVID-19 Screening Contact w/high risk pt: Yes Experienced COVID-19 symptoms?: Yes COVID-19 Testing performed LINEMARKER: Yes COVID-19 Screening: Positive COVID-19 COVID-19 Testing Source: 10/[address] [facility] Limited by: medical condition Past Medical History: see triage record, old chart reviewed Social History: Denies: smoking Social History Narrative born in [place] -snf facility, full code Reviewed Nursing Documentation: PMH: Agreed; PSxH: Agreed Hx Cardiac Problems: Yes - cardiomegaly, chf, Hx Hypertension: Yes Hx Diabetes: Yes Hx Gastrointestinal Problems: Yes Hx Weakness: Yes Hx Fatigue: Yes Vital Signs Date Time Temp Pulse Resp B/P (MAP) Pulse Ox O2 Delivery O2 Flow Rate FiO2 10/27/20 08:10 98.4 80 28 136/75 (95) 96 Nasal Cannula 10.0 PHYSICAL EXAMINATION: VITAL SIGNS: Temperature of 97.7, T-max of 98.4, pulse of 79, respiratory rate 20, blood pressure 148/67, O2 saturation of 98% on 2 L oxygen. HEENT: She has a right eye erythema and a left subclavian catheter. CHEST: clear to auscultation. AbdOMEN: soft, nontender. LABORATORY DATA: White count 6.8, hemoglobin 11.5, hematocrit 35.4, MCV 97, platelet count of 169 with neutrophils of 93%. Sodium 139, potassium 3.9, chloride 100, bicarb 31, BUN 43, creatinine 4.9, glucose 234, calcium of 7.5, AST of 26, ALT of 12, alkaline phosphatase 84. Beta-natriuretic peptide more than 35,000. Total protein 7.5, albumin 2.1, cholesterol of 142, lipase of 138. Chest x-ray is showing bilateral airspace consolidation, involving the right lung consistent with multifocal infiltrate, small left-sided pleural effusion. . Assessment/Plan 75-year-old female presents with respiratory distress and COVID-19 infection Patient has end-stage renal disease and last dialyzed 4 days ago Patient presents with high potassium History of C. difficile colitis History of diabetes mellitus History of hypertension, presents with transient hypotension History of cardiomyopathy and diastolic CHF Plan: Patient dialyzed last evening Serum creatinine and electrolyte much improved Continue per current treatment plan Per orders Next dialysis in a.Chris Butt MD Oct 28, 2020 11:01
--- NOTE | 2020-10-28 11:23 | NUR ---
RD ASSESSMENT & RECOMMENDATIONS SEE CARE ACTIVITY FOR COMPLETE ASSESSMENT DAILY ESTIMATED NEEDS: Needs based on ESRD on HD 42kg 30-40 kcals/kg 2565-6393 total kcals 1.25-1.8 g protein/kg 53-76 g total protein Fluid per MD, on HD NUTRITION DIAGNOSIS: Increased kcal and pro needs r/t renal dysfunction as evidenced by pt w/ ESRD on HD. (CURRENT DIET: Renal) PO DIET RECOMMENDATIONS: Maintain renal diet/ texture per [facility] [place] ADDITIONAL RECOMMENDATIONS: 1) Daily wts, calibrated bed scale 2) Rec [employer] eval for appropriate texture 3) Add NEPRO TID w/ meals (425 kcal/ 19g pro per pack) 4) Monitor for hypoglycemia w/ poor po intake . . .
--- NOTE | 2020-10-28 11:47 | General Progress Note ---
Subjective Date patient seen: Oct 28, 2020 Constitutional: Reports: malaise, weakness HEENT: Reports: eye pain Cardiovascular: Reports: no symptoms Respiratory: Reports: shortness of breath Gastrointestinal/Abdominal: Reports: no symptoms Neurologic/Psychiatric: Reports: numbness, weakness Allergies: Coded Allergies: No Known Allergies (Unverified , 09/23/20) Subjective sitting in bed awake Objective Last 24 Hour Vital Signs Date Time Temp Pulse Resp B/P (MAP) Pulse Ox O2 Delivery O2 Flow Rate FiO2 10/28/20 08:00 97.7 79 20 148/67 (94) 98 10/28/20 04:00 68 10/28/20 04:00 97.9 73 19 146/64 (91) 99 10/28/20 00:00 97.7 70 20 144/59 (87) 100 10/28/20 00:00 74 10/27/20 21:00 Nasal Cannula 2.0 10/27/20 20:00 97.5 72 20 142/63 (89) 99 10/27/20 20:00 72 10/27/20 16:00 65 10/27/20 16:00 97.3 66 20 132/65 (87) 96 10/27/20 13:45 Nasal Cannula 3.0 10/27/20 12:46 98.4 64 19 107/60 95 Nasal Cannula 2.0 Intake and Output 10/27/20 10/28/20 19:00 07:00 Intake Total 120 ml Output Total 400 ml 1000 ml Balance -400 ml -880 ml Intake Oral 120 ml Output Stool Total 400 ml Hemodialysis UF 1000 ml # Voids 1 # Bowel Movements 2 1 Laboratory Tests 10/27/20 16:29: POC Whole Blood Glucose 72L 10/27/20 21:23: POC Whole Blood Glucose [Pending] 10/28/20 04:25: White Blood Count 6.8, Red Blood Count 3.65L, Hemoglobin 11.5L, Hematocrit 35.4L , Mean Corpuscular Volume 97, Mean Corpuscular Hemoglobin 31.4H, Mean Corpuscular Hemoglobin Concent 32.4, Red Cell Distribution Width 18.1H, Platelet Count 169, Mean Platelet Volume 8.0, Neutrophils (%) (Auto) , Lymphocytes (%) (Auto) , Monocytes (%) (Auto) , Eosinophils (%) (Auto) , Basophils (%) (Auto) , Differential Total Cells Counted 100, Neutrophils % (Manual) 93H, Lymphocytes % (Manual) 5L, Monocytes % (Manual) 2, Eosinophils % (Manual) 0, Basophils % (Manual) 0, Band Neutrophils 0, Platelet Estimate Adequate, Platelet Morphology Normal, Anisocytosis 1+, Sodium Level 139, Potassium Level 3.9, Chloride Level 100, Carbon Dioxide Level 31, Anion Gap 8, Blood Urea Nitrogen 43H, Creatinine 4.9H, Estimat Glomerular Filtration Rate 8.6, Glucose Level 234H, Hemoglobin A1c 4.8, Uric Acid 4.5, Calcium Level 7.5L, Phosphorus Level 5.1H, Magnesium Level 2.0, Iron Level 26L, Total Iron Binding Capacity 113L, Percent Iron Saturation 23, Unsaturated Iron Binding 87L, Total Bilirubin 0.3, Gamma Glutamyl Transpeptidase 37, Aspartate Amino Transf (AST/SGOT) 26, Alanine Aminotransferase (ALT/SGPT) 12, Alkaline Phosphatase 84, Pro-B-Type Natriuretic Peptide > 60695U, Total Protein 7.5, Albumin 2.1L, Globulin 5.4, Albumin/Globulin Ratio 0.4L, Triglycerides Level 126, Cholesterol Level 142, LDL Cholesterol 63, HDL Cholesterol 53, Cholesterol/HDL Ratio 2.7L, Vitamin B12 Level 1416H, Folate 17.8 10/28/20 06:25: POC Whole Blood Glucose 194H Height (Feet): 5 Height (Inches): 1.00 Weight (Pounds): 92 General Appearance: alert, cachetic EENT: PERRL/EOMI Neck: supple Cardiovascular: regular rhythm Respiratory/Chest: rhonchi - bilaterally Abdomen: non tender, soft Extremities: non-tender Skin: warm/dry Assessment/Plan Status: doing well Assessment/Plan: 1 sob 2 covid pna 3 chf diastolic acute 4 esrd on hd 5 failure of thrive 6 dementia iv abx hd cardio and pulmonary consult Cesar Swanson MD Oct 28, 2020 11:46
--- NOTE | 2020-10-28 12:13 | NUR ---
CASE MANAGEMENT:REVIEW BIBA FROM [facility] CC: SOB. 88% ON RA SI: COVID PNA. ESRD ON HD 98.5 80 28 107/60 96% ON 10L/NC H/H-11.4/34.9 K+5.5 BUN+73 CR+6.9 BNP>49035 IS: IV AZITHROMYCIN IV DECADRON 1L NS BOLUS IV ROCEPHIN IV D50 500CC NS BOLUS : TELEMETRY STATUS DCP: FROM [facility]
--- NOTE | 2020-10-28 13:40 | NUR ---
NURSE NOTES: called granddaughter but no answer
--- NOTE | 2020-10-28 14:30 | NUR ---
NURSE NOTES: Selam Pt's granddaughter was updated on her grandmother's care. Family is concern that [facility] did not send her grandmother to dialysis. She said she was told " she needed to look for a center that handles covid positive pt's." Notified Rose from and she will look into it.
[2020-10-28] MEDS ORDERED: Haloperidol 5mg/ml Inj IM PRN (15:45)
--- NOTE | 2020-10-28 15:45 | Consultation ---
DATE OF CONSULTATION: 10/28/2020 INFECTIOUS DISEASE CONSULTATION REFERRING PHYSICIAN: Cesar Swanson M.D. REASON FOR CONSULTATION: COVID-19 pneumonia. HISTORY OF PRESENTING ILLNESS: This is a 75-year-old lady with history of hypertension, congestive heart failure, renal failure, on dialysis, who came in with poor p.o. intake, weakness, as well as dehydration. She also has diarrhea along with shortness of breath. She was found to be COVID-19 positive and an infectious disease consultation has been obtained for antibiotics. PAST MEDICAL HISTORY: 1. History of hypertension. 2. Congestive heart failure. 3. Renal failure, on dialysis. 4. History of C. difficile colitis. SOCIAL HISTORY: She does not smoke, drink, or use drugs. FAMILY HISTORY: Noncontributory. REVIEW OF SYSTEMS: RESPIRATORY: No fever, chills. No cough. No shortness of breath or chest pain. CARDIAC: No chest pain. No palpitation. No dizziness. No syncope. GASTROINTESTINAL: No nausea, no vomiting. She did have diarrhea. MEDICATIONS: As an inpatient, she is on Megace, dexamethasone, ceftriaxone, azithromycin, insulin, and Tylenol. She has received ivermectin yesterday. ALLERGIES: No known drug allergies. PHYSICAL EXAMINATION: VITAL SIGNS: Temperature of 97.7, T-max of 98.4, pulse of 79, respiratory rate 20, blood pressure 148/67, O2 saturation of 98% on 2 L oxygen. HEENT: She has a right eye erythema and a left subclavian catheter. LABORATORY DATA: White count 6.8, hemoglobin 11.5, hematocrit 35.4, MCV 97, platelet count of 169 with neutrophils of 93%. Sodium 139, potassium 3.9, chloride 100, bicarb 31, BUN 43, creatinine 4.9, glucose 234, calcium of 7.5, AST of 26, ALT of 12, alkaline phosphatase 84. Beta-natriuretic peptide more than 35,000. Total protein 7.5, albumin 2.1, cholesterol of 142, lipase of 138. Chest x-ray is showing bilateral airspace consolidation, involving the right lung consistent with multifocal infiltrate, small left-sided pleural effusion. ASSESSMENT: This is a 75-year-old lady with history of hypertension, congestive heart failure, renal failure, on dialysis, who comes in with shortness of breath and diarrhea, and is found to have: 1. COVID-19 pneumonia. She is on 2 L oxygen with O2 saturation of 98%. 2. Renal failure, on dialysis. 3. Congestive heart failure. 4. Right eye conjunctivitis. PLAN: 1. She has received one dose of ivermectin. Benefits outweigh the risks. 2. Continue Decadron that has been started, day 2. 3. Discontinue ceftriaxone and azithromycin. 4. Continue isolation. 5. We will follow the patient clinically. I would like to thank Dr. Swanson for this consultation. Erika Stiles M.D. DR: TREV JOB#: [id number] CC: Alphonse Swanson M.D.; Fax#: [phone]
[2020-10-28 16:00] VITALS: BP 138/66
--- NOTE | 2020-10-28 17:24 | Consultation ---
Consult Note Consult Note DATE OF CONSULTATION: 10/28/2020 Pulmonary Diseases REFERRING PHYSICIAN: Cesar Swanson M.D. REASON FOR CONSULTATION: COVID-19 pneumonia. HISTORY OF PRESENTING ILLNESS: This is a 75-year-old female with history of hypertension, congestive heart failure, renal failure, on dialysis, who came in with poor p.o. intake, weakness, as well as dehydration. She also reported diarrhea along with shortness of breath. She was found to be COVID-19 positive and a pulmonary consultation has been obtained for optimal oxygenation and antibiotics. PAST MEDICAL HISTORY: 1. History of hypertension. 2. Congestive heart failure. 3. Renal failure, on dialysis. 4. History of C. difficile colitis. SOCIAL HISTORY: She does not smoke, drink, or use drugs. FAMILY HISTORY: Noncontributory. REVIEW OF SYSTEMS: RESPIRATORY: No fever, chills. No cough. No shortness of breath or chest pain. CARDIAC: No chest pain. No palpitation. No dizziness. No syncope. GASTROINTESTINAL: No nausea, no vomiting. She did have diarrhea. MEDICATIONS: As an inpatient, she is on Megace, dexamethasone, ceftriaxone, azithromycin, insulin, and Tylenol. She has received ivermectin yesterday. ALLERGIES: No known drug allergies. PHYSICAL EXAMINATION: VITAL SIGNS: Temperature of 97.7, T-max of 98.4, pulse of 79, respiratory rate 20, blood pressure 148/67, O2 saturation of 98% on 2 L oxygen. HEENT: She has a right eye erythema and a left subclavian catheter. CHEST: clear to auscultation. AbdOMEN: soft, nontender. LABORATORY DATA: White count 6.8, hemoglobin 11.5, hematocrit 35.4, MCV 97, platelet count of 169 with neutrophils of 93%. Sodium 139, potassium 3.9, chloride 100, bicarb 31, BUN 43, creatinine 4.9, glucose 234, calcium of 7.5, AST of 26, ALT of 12, alkaline phosphatase 84. Beta-natriuretic peptide more than 35,000. Total protein 7.5, albumin 2.1, cholesterol of 142, lipase of 138. Chest x-ray is showing bilateral airspace consolidation, involving the right lung consistent with multifocal infiltrate, small left-sided pleural effusion. ASSESSMENT: This is a 75-year-old female with history of hypertension, congestive heart failure, renal failure, on dialysis, who comes in with shortness of breath and diarrhea, and is found to have: 1. COVID-19 pneumonia. continue 2 L oxygen 2. Renal failure, on dialysis. 3. Congestive heart failure. 4. Right eye conjunctivitis. PLAN: 1. continue low flow oxygen 2. Continue Decadron that has been started, day 2 today. 3. Discontinue ceftriaxone and azithromycin. 4. Continue isolation. Naman Krause M.D. Naman Krause MD Oct 28, 2020 17:24
[2020-10-28] MEDS: Docusate 100mg cap ORAL SCH ×2 (17:33→17:46)
--- NOTE | 2020-10-28 17:46 | NUR ---
NURSE NOTES: pt had semi-soft stool, educated pt on medication and decided that colace was not needed. colace was not given.
--- NOTE | 2020-10-28 19:28 | NUR ---
NURSE HAND-OFF REPORT: Important Events on Shift:[]endorsed to notify MD if BS next is greater than 200. HD will be done tomorrow, Young RN has been notified. Patient Status: [] full code Diet: [] renal Pending Orders: [] labs Pending Results/Labs:[] Pending MD notification:[] Latest Vital Signs: Temperature 97.9 , Pulse 84 , B/P 138 /66 , Respiratory Rate 20 , O2 SAT 96 , Nasal Cannula, O2 Flow Rate 2.0 . Vital Sign Comment: [] EKG Rhythm: Sinus Rhythm Rhythm change?: N MD Notified?: - MD Response: Latest Ness Fall Score: 35 Fall Risk: Medium Risk Safety Measures: Call light Within Reach, Bed Alarm Zone 2, Side Rails Side Rails x2, Bed position Low and Locked. Fall Precautions: Yellow Socks Y Yellow Gown Y Door Sign Y Patient Fall Education Y Report given to [].Reta/RN
--- NOTE | 2020-10-28 19:29 | NUR ---
NURSE NOTES: Received pt and report from ZENAIDA Duarte and ZENAIDA Aponte. Observed pt resting in bed with both eyes closed; arousable to voice. Pt is A/Ox2-3. compliance monitor is in placed; pt is NSR. IV site intact, asymptomatic, and patent. Pt is on 2LPM O2 via NC; sating at 97%. Bed is in the lowest position and locked. Call light and bedside table is within reach. No signs/symptoms of SOB or acute distress noted. Will continue plan of care.
[2020-10-28 20:00] VITALS: BP 157/67
--- NOTE | 2020-10-28 20:32 | NUR ---
NURSE NOTES: Notified Dr. Swanson that pt's BS has been above [address] Swanson ordered to change insulin sliding scale to medium scale. Will note and carry out.
--- NOTE | 2020-10-28 23:09 | Psychiatry Consultation ---
Psychiatry Consultation Psychiatry Consultation Chief Complaint: Dyspnea/Respdistress History of Present Illness: 75-year-old female with a history of end-stage renal disease, hypertension, neuropathy who has been admitted to the hospital due to altered mental status. Patient also has a history of anxiety disorder and depression, on Celexa. Patient dialysis, renal failure, and heart failure. Patient is confused, episodes of anxiety, more confused than baseline. In addition, the patient was diagnosed with pneumonia and has been having waxing and waning consciousness, memory impairment. Allergies: Coded Allergies: No Known Allergies (Unverified , 09/23/20) Past Psychiatric History: PAST PSYCHIATRIC HISTORY: Depression and anxiety, on Celexa dementia. Medical History: PAST MEDICAL HISTORY: Diabetes, hypertension, hyperlipidemia, renal failure on dialysis, cardiomyopathy, congestive heart failure. Social/Family/Abuse/Legal Hx: ALLERGIES: No known drug allergies. SUBSTANCE ABUSE HISTORY: No known history of illicit drug use or alcohol. MENTAL STATUS EXAMINATION: Patient is alert, oriented times self, place. Mood is agitated. Affect is flat. Thought process, there is a paucity of thought content. Thought content, no suicidal or homicidal ideation. Cognition is impaired. Insight and judgment is impaired. ASSESSMENT: [place] I Dementia. Anxiety disorder. Rule out acute metabolic encephalopathy. [place] II Deferred. [place] III As above. [place] IV Low. [place] V 20. PLAN: 1. Celexa 20 mg. 2. Haldol IM p.r.n. for agitation. 3. Discussed with the nurse. Medication History Scheduled Ascorbic Acid* (Ascorbic Acid*), 250 MG ORAL BID, (Reported) Atorvastatin Calcium* (Atorvastatin Calcium*), 40 MG ORAL BEDTIME, (Reported) Cinacalcet* (Sensipar*), 30 MG ORAL DAILY, (Reported) Citalopram Hydrobromide* (Citalopram Hbr*), 20 MG ORAL DAILY, (Reported) Gabapentin* (Gabapentin*), 100 MG ORAL THREE TIMES A DAY, (Reported) Insulin Glargine (Lantus), 0 SUBQ BEDTIME, (Reported) Pantoprazole* (Pantoprazole*), 40 MG ORAL DAILY, (Reported) Sevelamer Carbonate* (Renvela*), 2,400 MG ORAL THREE TIMES A DAY, (Reported) Vitamin B Cmplx/Vit C/Folic AC (Nephro-Kat Tablet), 1 TAB ORAL DAILY, (Reported) Scheduled PRN Ondansetron* (Zofran*), 4 MG ORAL Q6H PRN for Nausea & Vomiting, (Reported) Objective Data Height (Feet): 5 Height (Inches): 1.00 Weight (Pounds): 92 Lona Tarango MD Oct 28, 2020 23:09
[2020-10-29] VITALS: BP 148/74
[2020-10-29 04:00] VITALS: BP 151/71
[2020-10-29] MEDS: NovoLOG Insulin Flexpen SUBQ SCH ×4 (06:04→20:12)
--- NOTE | 2020-10-29 07:33 | NUR ---
NURSE HAND-OFF REPORT: Important Events on Shift: Pt pulled out IV around 0630. Attempted to insert new IV twice but was unsuccessful. Endorsed to dayshift nurse. Patient Status: Stable Diet: Renal Pending Orders: HD Pending Results/Labs: Venous Duplex Pending MD notification: N Latest Vital Signs: Temperature 97.9 , Pulse 78 , B/P 151 /71 , Respiratory Rate 20 , O2 SAT 97 , Nasal Cannula, O2 Flow Rate 2.0 . EKG Rhythm: Sinus Rhythm Rhythm change?: N Latest Ness Fall Score: 50 Fall Risk: High Risk Safety Measures: Call light Within Reach, Bed Alarm Zone 2, Side Rails Side Rails x2, Bed position Low and Locked. Fall Precautions: Yellow Socks Yellow Gown Door Sign Patient Fall Education Report given to ZENAIDA Duarte.
--- NOTE | 2020-10-29 07:56 | NUR ---
NURSE NOTES: pt was in bed asleep. woke pt up for breakfast and is eating. pt is on office engineer, showing no signs of cardiac or respiratory distress. pt has no complaints of pain. pt was made aware of receiving dialysis today.
[2020-10-29 08:00] VITALS: BP 155/71
[2020-10-29] MEDS: Docusate 100mg cap ORAL SCH ×2 (09:00→17:29)
[2020-10-29] MEDS: Megace 400mg/10ml Susp ORAL SCH (09:44)
[2020-10-29] MEDS: dexAMETHasone 10mg/ml Inj IV SCH (09:45)
[2020-10-29] MEDS: Citalopram Hydrobromide 10mg Tab ORAL SCH (09:55)
--- NOTE | 2020-10-29 10:35 | Infectious Diseases Prog Note ---
Assessment/Plan Assessment/Plan antibiotics : none A 1. COVID-19 pneumonia on 2 L oxygen with O2 saturation of 96%. s/p ivermectin 2. Renal failure, on dialysis. 3. Congestive heart failure. 4. Right eye conjunctivitis 5. hypertension P 1. continue decadron day 3 2. continue isolation Subjective ROS Limited/Unobtainable: Yes Allergies: Coded Allergies: No Known Allergies (Unverified , 09/23/20) Objective Last 24 Hour Vital Signs Date Time Temp Pulse Resp B/P (MAP) Pulse Ox O2 Delivery O2 Flow Rate FiO2 10/29/20 08:00 97.5 78 20 155/71 (99) 96 10/29/20 04:00 97.9 78 20 151/71 (97) 97 10/29/20 04:00 76 10/29/20 00:00 83 10/29/20 00:00 97.7 86 19 148/74 (98) 95 10/28/20 21:00 Nasal Cannula 2.0 10/28/20 20:00 98.8 80 19 157/67 (97) 97 10/28/20 20:00 80 10/28/20 16:00 88 10/28/20 16:00 97.9 84 20 138/66 (90) 96 10/28/20 12:00 69 Height (Feet): 5 Height (Inches): 1.00 Weight (Pounds): 92 Microbiology Date/Time Source Procedure Growth Status 10/27/20 08:45 Blood Blood Culture - Preliminary NO GROWTH AFTER 24 HOURS Resulted 10/27/20 08:45 Blood Blood Culture - Preliminary NO GROWTH AFTER 24 HOURS Resulted Laboratory Tests Test 10/28/20 11:49 10/28/20 16:58 10/28/20 17:03 10/28/20 20:20 POC Whole Blood Glucose 195 MG/DL (74-106) H 400 MG/DL (74-106) H 378 MG/DL (74-106) H 364 MG/DL (74-106) H Test 10/29/20 05:10 POC Whole Blood Glucose 152 MG/DL (74-106) H Current Medications Medications (Trade) Dose Ordered Sig/Yeimi Route PRN Reason Start Time Stop Time Status Last Admin Dose Admin Acetaminophen (Tylenol) 650 mg Q4H PRN ORAL Temp >100.5 10/27/20 14:15 11/26/20 14:14 Citalopram Hydrobromide (CeleXA) 20 mg DAILY ORAL 10/29/20 09:00 11/28/20 08:59 10/29/20 09:55 Dexamethasone Sodium Phosphate (Decadron 10mg/ ml Inj) 6 mg DAILY IV 10/28/20 09:00 11/06/20 09:01 10/29/20 09:45 Dextrose (Dextrose 50%) 25 ml Q30M PRN IV Hypoglycemia 10/28/20 20:45 01/26/21 20:44 Dextrose (Dextrose 50%) 50 ml Q30M PRN IV Hypoglycemia 10/28/20 20:45 01/26/21 20:44 Docusate Sodium (Colace) 100 mg TWICE A DAY ORAL 10/28/20 18:00 11/27/20 17:59 Haloperidol Lactate (Haldol) 5 mg Q6H PRN IM Agitation 10/28/20 15:45 12/12/20 15:44 Insulin Aspart (NovoLOG) BEFORE MEALS AND HS SUBQ 10/28/20 21:00 01/26/21 20:59 10/29/20 06:04 Megestrol Acetate (Megace) 400 mg DAILY ORAL 10/28/20 09:00 01/26/21 08:59 10/29/20 09:44 Pantoprazole (Protonix) 40 mg EVERY 12 HOURS ORAL 10/28/20 21:00 11/27/20 20:59 10/29/20 09:45 Sevelamer Carbonate (Renvela) 800 mg THREE TIMES A DAY ORAL 10/28/20 13:00 01/26/21 12:59 10/29/20 09:45 Erika Stiles MD Oct 29, 2020 10:35
--- NOTE | 2020-10-29 11:15 | Consultation ---
History of Present Illness General Chief Complaint: Dyspnea/Respdistress Referring physician: Dr. Swanson Reason for Consultation: CHF Present Illness HPI Pt is a 75-year-old female BIB EMS from home and admitted through the ER c/o weakness, AMS, diarrhea, and poor PO intake. PMHx ESRD on HD with recent missed HD appt, CHF, HTN. Found to be COVID-19 positive. We are asked to see the pat ient for evaluation and management of CHF and other cardiac issues as contributing factors to presenting symptoms. Pt is SOB and CXR shows pulmonary vascualar congestion. Allergies: Coded Allergies: No Known Allergies (Unverified , 09/23/20) Medication History Scheduled Ascorbic Acid* (Ascorbic Acid*), 250 MG ORAL BID, (Reported) Atorvastatin Calcium* (Atorvastatin Calcium*), 40 MG ORAL BEDTIME, (Reported) Cinacalcet* (Sensipar*), 30 MG ORAL DAILY, (Reported) Citalopram Hydrobromide* (Citalopram Hbr*), 20 MG ORAL DAILY, (Reported) Gabapentin* (Gabapentin*), 100 MG ORAL THREE TIMES A DAY, (Reported) Insulin Glargine (Lantus), 0 SUBQ BEDTIME, (Reported) Pantoprazole* (Pantoprazole*), 40 MG ORAL DAILY, (Reported) Sevelamer Carbonate* (Renvela*), 2,400 MG ORAL THREE TIMES A DAY, (Reported) Vitamin B Cmplx/Vit C/Folic AC (Nephro-Kat Tablet), 1 TAB ORAL DAILY, (Reported) Scheduled PRN Ondansetron* (Zofran*), 4 MG ORAL Q6H PRN for Nausea & Vomiting, (Reported) Patient History Healthcare decision maker Resuscitation status Advanced Directive on File Review of Systems Constitutional: Reports: malaise, weakness Eye: Reports: no symptoms Respiratory: Reports: shortness of breath Gastrointestinal: Reports: diarrhea Psychiatric: Reports: see HPI Neurological: Reports: dizziness Physical Exam Last 24 Hour Vital Signs Date Time Temp Pulse Resp B/P (MAP) Pulse Ox O2 Delivery O2 Flow Rate FiO2 10/29/20 08:00 97.5 78 20 155/71 (99) 96 10/29/20 04:00 97.9 78 20 151/71 (97) 97 10/29/20 04:00 76 10/29/20 00:00 83 10/29/20 00:00 97.7 86 19 148/74 (98) 95 10/28/20 21:00 Nasal Cannula 2.0 10/28/20 20:00 98.8 80 19 157/67 (97) 97 10/28/20 20:00 80 10/28/20 16:00 88 10/28/20 16:00 97.9 84 20 138/66 (90) 96 10/28/20 12:00 69 Intake and Output 10/28/20 10/29/20 19:00 07:00 Intake Total 120 ml 100 ml Balance 120 ml 100 ml Intake Oral 120 ml 100 ml # Bowel Movements 2 1 Laboratory Tests Test 10/28/20 11:49 10/28/20 16:58 10/28/20 17:03 10/28/20 20:20 POC Whole Blood Glucose 195 MG/DL (74-106) H 400 MG/DL (74-106) H 378 MG/DL (74-106) H 364 MG/DL (74-106) H Test 10/29/20 05:10 POC Whole Blood Glucose 152 MG/DL (74-106) H Height (Feet): 5 Height (Inches): 1.00 Weight (Pounds): 92 Medications Current Medications Medications (Trade) Dose Ordered Sig/Yeimi Route PRN Reason Start Time Stop Time Status Last Admin Dose Admin Acetaminophen (Tylenol) 650 mg Q4H PRN ORAL Temp >100.5 10/27/20 14:15 11/26/20 14:14 Citalopram Hydrobromide (CeleXA) 20 mg DAILY ORAL 10/29/20 09:00 11/28/20 08:59 10/29/20 09:55 Dexamethasone Sodium Phosphate (Decadron 10mg/ ml Inj) 6 mg DAILY IV 10/28/20 09:00 11/06/20 09:01 10/29/20 09:45 Dextrose (Dextrose 50%) 25 ml Q30M PRN IV Hypoglycemia 10/28/20 20:45 01/26/21 20:44 Dextrose (Dextrose 50%) 50 ml Q30M PRN IV Hypoglycemia 10/28/20 20:45 01/26/21 20:44 Docusate Sodium (Colace) 100 mg TWICE A DAY ORAL 12/7/20 18:00 11/27/20 17:59 Haloperidol Lactate (Haldol) 5 mg Q6H PRN IM Agitation 10/28/20 15:45 12/12/20 15:44 Insulin Aspart (NovoLOG) BEFORE MEALS AND HS SUBQ 10/28/20 21:00 01/26/21 20:59 10/29/20 06:04 Megestrol Acetate (Megace) 400 mg DAILY ORAL 10/28/20 09:00 01/26/21 08:59 10/29/20 09:44 Pantoprazole (Protonix) 40 mg EVERY 12 HOURS ORAL 10/28/20 21:00 11/27/20 20:59 10/29/20 09:45 Sevelamer Carbonate (Renvela) 800 mg THREE TIMES A DAY ORAL 10/28/20 13:00 01/26/21 12:59 10/29/20 09:45 Assessment/Plan Assessment/Plan: 1. COVID-19 viral PNA 2. ESRD on HD Fluid balance primarily with HD 3. CHF - decompensated with pulmonary vascular congestion Echo pending troponin negative BNP severely elevated 4. HTN - needs better control 5. AMS 6. Diarrhea 7. Anemia of chronic disease 8. DMII Pt to have HD, recommend microfiltration to help alleviate fluid overload. Echo ordered, trop negative. SBP elevated, started on hydralazine and nifedipine. Further recs to follow. Pamela Chowdhury PA-C Oct 29, 2020 11:15
[2020-10-29 12:00] VITALS: BP 143/61
[2020-10-29] MEDS: HydrALAZINE 50mg tab ORAL SCH ×2 (14:00→22:00)
--- NOTE | 2020-10-29 14:42 | Pulmonology Progress Note ---
Subjective ROS Limited/Unobtainable: Yes Interval Events: None new Constitutional: Denies: fever Respiratory: Reports: shortness of breath Cardiovascular: Reports: no symptoms Gastrointestinal/Abdominal: Reports: no symptoms Allergies: Coded Allergies: No Known Allergies (Unverified , 09/23/20) Objective Last 24 Hour Vital Signs Date Time Temp Pulse Resp B/P (MAP) Pulse Ox O2 Delivery O2 Flow Rate FiO2 10/29/20 12:00 97.7 73 18 143/61 (88) 95 10/29/20 12:00 78 10/29/20 08:00 85 10/29/20 08:00 97.5 78 20 155/71 (99) 96 10/29/20 04:00 97.9 78 20 151/71 (97) 97 10/29/20 04:00 76 10/29/20 00:00 83 10/29/20 00:00 97.7 86 19 148/74 (98) 95 10/28/20 21:00 Nasal Cannula 2.0 10/28/20 20:00 98.8 80 19 157/67 (97) 97 10/28/20 20:00 80 10/28/20 16:00 88 10/28/20 16:00 97.9 84 20 138/66 (90) 96 Intake and Output 10/28/20 10/29/20 19:00 07:00 Intake Total 120 ml 100 ml Balance 120 ml 100 ml Intake Oral 120 ml 100 ml # Bowel Movements 2 1 Objective 10/29/2020 pt asleep in bed; saturating well on low flow oxygen General Appearance: cachetic HEENT: normocephalic, atraumatic Respiratory: chest wall non-tender, rhonchi - bilaterally, other - dialysis catheter Cardiovascular: normal rate, regular rhythm Abdomen: soft, non tender Microbiology Date/Time Source Procedure Growth Status 10/27/20 08:45 Blood Blood Culture - Preliminary NO GROWTH AFTER 24 HOURS Resulted 10/27/20 08:45 Blood Blood Culture - Preliminary NO GROWTH AFTER 24 HOURS Resulted Laboratory Tests 10/28/20 16:58: POC Whole Blood Glucose 400H 10/28/20 17:03: POC Whole Blood Glucose 378H 10/28/20 20:20: POC Whole Blood Glucose 364H 10/29/20 05:10: POC Whole Blood Glucose 152H 10/29/20 11:57: POC Whole Blood Glucose 208H Current Medications Medications (Trade) Dose Ordered Sig/Yeimi Route PRN Reason Start Time Stop Time Status Last Admin Dose Admin Acetaminophen (Tylenol) 650 mg Q4H PRN ORAL Temp >100.5 10/27/20 14:15 11/26/20 14:14 Citalopram Hydrobromide (CeleXA) 20 mg DAILY ORAL 10/29/20 09:00 11/28/20 08:59 10/29/20 09:55 Dexamethasone Sodium Phosphate (Decadron 10mg/ ml Inj) 6 mg DAILY IV 10/28/20 09:00 11/06/20 09:01 10/29/20 09:45 Dextrose (Dextrose 50%) 25 ml Q30M PRN IV Hypoglycemia 10/28/20 20:45 01/26/21 20:44 Dextrose (Dextrose 50%) 50 ml Q30M PRN IV Hypoglycemia 10/28/20 20:45 01/26/21 20:44 Docusate Sodium (Colace) 100 mg TWICE A DAY ORAL 10/28/20 18:00 11/27/20 17:59 Haloperidol Lactate (Haldol) 5 mg Q6H PRN IM Agitation 10/28/20 15:45 12/12/20 15:44 Hydralazine HCl (Apresoline) 50 mg Q8HR ORAL 10/29/20 14:00 01/27/21 13:59 Insulin Aspart (NovoLOG) BEFORE MEALS AND HS SUBQ 10/28/20 21:00 01/26/21 20:59 10/29/20 13:11 Megestrol Acetate (Megace) 400 mg DAILY ORAL 10/28/20 09:00 01/26/21 08:59 10/29/20 09:44 Nifedipine (Procardia XL) 30 mg DAILY ORAL 10/29/20 14:00 11/28/20 13:59 Pantoprazole (Protonix) 40 mg EVERY 12 HOURS ORAL 10/28/20 21:00 11/27/20 20:59 10/29/20 09:45 Sevelamer Carbonate (Renvela) 800 mg THREE TIMES A DAY ORAL 10/28/20 13:00 01/26/21 12:59 10/29/20 13:28 Assessment/Plan Assessment/Plan 1. COVID-19 pneumonia. - Continue isolation. - continue low flow oxygen; currently saturating 96% on 2 lpm NC - CXR 10/27/2020 shows multifocal infiltrate. - Continue Decadron - Discontinue ceftriaxone and azithromycin. 2. Renal failure, on dialysis. 3. Congestive heart failure. - 2D echo pending per cardio - management per cardio 4. Right eye conjunctivitis. 5. DVT ppx - D-dimer 3.08, CRP 16.1 - venous ultrasound pending - SCD We will follow carefully The care of this patient was discussed with my supervising physician Time spent for this encounter was approximately 31 minutes The history of Cristiano Agudelo has been reviewed and management options for her have been examined and discussed by Naman Krause. I have personally examined and interviewed the patient. Zbigniew Serrano Oct 29, 2020 14:42 Naman Krause MD Oct 29, 2020 16:03
--- NOTE | 2020-10-29 15:19 | Nephrology Progress Note ---
Assessment/Plan Problem List: (1) End stage renal disease on dialysis (2) C. difficile colitis (3) Transient hypotension (4) Diastolic CHF, chronic Assessment 75-year-old female presents with respiratory distress and COVID-19 infection Patient has end-stage renal disease and last dialyzed 4 days ago Patient presents with high potassium History of C. difficile colitis History of diabetes mellitus History of hypertension, presents with transient hypotension History of cardiomyopathy and diastolic CHF Plan October 29: Patient dialyzed last evening of October 27. Serum creatinine and electrolyte much improved Continue per current treatment plan Per orders Next dialysis today October 29 Check labs in a.m. Subjective ROS Limited/Unobtainable: No Constitutional: Reports: malaise Objective Objective Last 24 Hour Vital Signs Date Time Temp Pulse Resp B/P (MAP) Pulse Ox O2 Delivery O2 Flow Rate FiO2 10/29/20 12:00 97.7 73 18 143/61 (88) 95 10/29/20 12:00 78 10/29/20 08:00 85 10/29/20 08:00 97.5 78 20 155/71 (99) 96 10/29/20 04:00 97.9 78 20 151/71 (97) 97 10/29/20 04:00 76 10/29/20 00:00 83 10/29/20 00:00 97.7 86 19 148/74 (98) 95 10/28/20 21:00 Nasal Cannula 2.0 10/28/20 20:00 98.8 80 19 157/67 (97) 97 10/28/20 20:00 80 10/28/20 16:00 88 10/28/20 16:00 97.9 84 20 138/66 (90) 96 Intake and Output 10/28/20 10/29/20 19:00 07:00 Intake Total 120 ml 100 ml Balance 120 ml 100 ml Intake Oral 120 ml 100 ml # Bowel Movements 2 1 Current Medications Medications (Trade) Dose Ordered Sig/Yeimi Route PRN Reason Start Time Stop Time Status Last Admin Dose Admin Acetaminophen (Tylenol) 650 mg Q4H PRN ORAL Temp >100.5 10/27/20 14:15 11/26/20 14:14 Citalopram Hydrobromide (CeleXA) 20 mg DAILY ORAL 10/29/20 09:00 11/28/20 08:59 10/29/20 09:55 Dexamethasone Sodium Phosphate (Decadron 10mg/ ml Inj) 6 mg DAILY IV 10/28/20 09:00 11/06/20 09:01 10/29/20 09:45 Dextrose (Dextrose 50%) 25 ml Q30M PRN IV Hypoglycemia 10/28/20 20:45 01/26/21 20:44 Dextrose (Dextrose 50%) 50 ml Q30M PRN IV Hypoglycemia 10/28/20 20:45 01/26/21 20:44 Docusate Sodium (Colace) 100 mg TWICE A DAY ORAL 10/28/20 18:00 11/27/20 17:59 Haloperidol Lactate (Haldol) 5 mg Q6H PRN IM Agitation 10/28/20 15:45 12/12/20 15:44 Hydralazine HCl (Apresoline) 50 mg Q8HR ORAL 10/29/20 14:00 01/27/21 13:59 Insulin Aspart (NovoLOG) BEFORE MEALS AND HS SUBQ 10/28/20 21:00 01/26/21 20:59 10/29/20 13:11 Megestrol Acetate (Megace) 400 mg DAILY ORAL 10/28/20 09:00 01/26/21 08:59 10/29/20 09:44 Nifedipine (Procardia XL) 30 mg DAILY ORAL 10/29/20 14:00 11/28/20 13:59 Pantoprazole (Protonix) 40 mg EVERY 12 HOURS ORAL 10/28/20 21:00 11/27/20 20:59 10/29/20 09:45 Sevelamer Carbonate (Renvela) 800 mg THREE TIMES A DAY ORAL 10/28/20 13:00 01/26/21 12:59 10/29/20 13:28 Laboratory Tests 10/28/20 16:58: POC Whole Blood Glucose 400H 10/28/20 17:03: POC Whole Blood Glucose 378H 10/28/20 20:20: POC Whole Blood Glucose 364H 10/29/20 05:10: POC Whole Blood Glucose 152H 10/29/20 11:57: POC Whole Blood Glucose 208H Height (Feet): 5 Height (Inches): 1.00 Weight (Pounds): 92 General Appearance: no apparent distress, lethargic Cardiovascular: normal rate Respiratory/Chest: decreased breath sounds Abdomen: distended Chris Puckett MD Oct 29, 2020 15:19
--- NOTE | 2020-10-29 15:41 | General Progress Note ---
Subjective Allergies: Coded Allergies: No Known Allergies (Unverified , 09/23/20) Subjective sitting in bed awake eating better blood sugar is high Objective Last 24 Hour Vital Signs Date Time Temp Pulse Resp B/P (MAP) Pulse Ox O2 Delivery O2 Flow Rate FiO2 10/29/20 12:00 97.7 73 18 143/61 (88) 95 10/29/20 12:00 78 10/29/20 08:00 85 10/29/20 08:00 97.5 78 20 155/71 (99) 96 10/29/20 04:00 97.9 78 20 151/71 (97) 97 10/29/20 04:00 76 10/29/20 00:00 83 10/29/20 00:00 97.7 86 19 148/74 (98) 95 10/28/20 21:00 Nasal Cannula 2.0 10/28/20 20:00 98.8 80 19 157/67 (97) 97 10/28/20 20:00 80 10/28/20 16:00 88 10/28/20 16:00 97.9 84 20 138/66 (90) 96 Intake and Output 10/28/20 10/29/20 19:00 07:00 Intake Total 120 ml 100 ml Balance 120 ml 100 ml Intake Oral 120 ml 100 ml # Bowel Movements 2 1 Laboratory Tests 10/28/20 16:58: POC Whole Blood Glucose 400H 10/28/20 17:03: POC Whole Blood Glucose 378H 10/28/20 20:20: POC Whole Blood Glucose 364H 10/29/20 05:10: POC Whole Blood Glucose 152H 10/29/20 11:57: POC Whole Blood Glucose 208H Height (Feet): 5 Height (Inches): 1.00 Weight (Pounds): 92 General Appearance: alert EENT: PERRL/EOMI Neck: normal alignment, supple Cardiovascular: regular rhythm Respiratory/Chest: rhonchi - bilaterally Abdomen: non tender, soft Extremities: non-tender Assessment/Plan Status: doing well Assessment/Plan: 1 sob 2 covid pna 3 chf diastolic acute 4 esrd on hd 5 failure of thrive 6 dementia 7 dm poory controlled due to steroids add levamier and high dose short insulin pt/ot eval iv abx hd cardio and pulmonary consult Cesar Swanson MD Oct 29, 2020 15:41
[2020-10-29 16:00] VITALS: BP 150/79
--- NOTE | 2020-10-29 16:13 | Diagnostic Imaging Report ---
EXAM: ULTRASOUND Venous Duplex Scan Patrick Leg CLINICAL HISTORY: Leg pain and swelling. COMPARISON: None TECHNIQUE: Doppler examination include grayscale images obtained with and without compression, and color and spectral doppler analysis. FINDINGS: Doppler examination shows normal spontaneity, phasicity, compressibility in the bilateral lower extremities. There is no thrombus identified by grayscale. Normal color and spectral flow is identified. There is no evidence of valvular incompetency or insufficiency. IMPRESSION: UNREMARKABLE VENOUS DUPLEX.
--- NOTE | 2020-10-29 19:30 | NUR ---
NURSE NOTES: Patient received from ZENAIDA Duarte. Patient is currently sleeping but easily arousable. Patient is on 2 L Nasal cannula with no signs of acute respiratory distress noted. Patient has a right 22 gauge on her hand, tko running at 5 ml. Patient has a left upper chest permacath and left upper arm AV shunt. Patient appears to be comfortable and no complaints as of the moment. Bed is in the lowest position and locked, call light within reach. Will continue to monitor.
--- NOTE | 2020-10-29 19:47 | NUR ---
NURSE HAND-OFF REPORT: Important Events on Shift:[]pt was retested for covid today. Dialysis will be done later today, Pt is in the care, order to transfer to med surg. Patient Status: []full Diet: []Renal Pending Orders: [] Pending Results/Labs:[] Pending MD notification:[] Latest Vital Signs: Temperature 97.9 , Pulse 73 , B/P 150 /79 , Respiratory Rate 20 , O2 SAT 96 , Nasal Cannula, O2 Flow Rate 2.0 . Vital Sign Comment: [] EKG Rhythm: Sinus Rhythm Rhythm change?: N MD Notified?: - MD Response: Latest Ness Fall Score: 50 Fall Risk: High Risk Safety Measures: Call light Within Reach, Bed Alarm Zone 2, Side Rails Side Rails x2, Bed position Low and Locked. Fall Precautions: y Yellow Socks Y Yellow Gown Y Door Sign Patient Fall Education Report given to []. Vinny pierce/ZENAIDA
[2020-10-29 20:00] VITALS: BP 154/74
[2020-10-29] MEDS: Levemir Flexpen SUBQ SCH (20:11)
--- NOTE | 2020-10-29 23:05 | Psychiatric Progress Note ---
Psychiatry Progress Note Psychiatry Progress Note Medications Current Medications Medications (Trade) Dose Ordered Sig/Yeimi Route PRN Reason Start Time Stop Time Status Last Admin Dose Admin Acetaminophen (Tylenol) 650 mg Q4H PRN ORAL Temp >100.5 10/27/20 14:15 11/26/20 14:14 Citalopram Hydrobromide (CeleXA) 20 mg DAILY ORAL 10/29/20 09:00 11/28/20 08:59 10/29/20 09:55 Dexamethasone Sodium Phosphate (Decadron 10mg/ ml Inj) 6 mg DAILY IV 10/28/20 09:00 11/06/20 09:01 10/29/20 09:45 Dextrose (Dextrose 50%) 25 ml Q30M PRN IV Hypoglycemia 10/28/20 20:45 01/26/21 20:44 Dextrose (Dextrose 50%) 50 ml Q30M PRN IV Hypoglycemia 10/28/20 20:45 01/26/21 20:44 Docusate Sodium (Colace) 100 mg TWICE A DAY ORAL 10/28/20 18:00 11/27/20 17:59 Haloperidol Lactate (Haldol) 5 mg Q6H PRN IM Agitation 10/28/20 15:45 12/12/20 15:44 Hydralazine HCl (Apresoline) 50 mg Q8HR ORAL 10/29/20 14:00 01/27/21 13:59 Insulin Aspart (NovoLOG) BEFORE MEALS AND HS SUBQ 10/28/20 21:00 01/26/21 20:59 10/29/20 20:12 Insulin Detemir (Levemir) 10 units Q24H SUBQ 10/29/20 20:00 01/27/21 19:59 10/29/20 20:11 Megestrol Acetate (Megace) 400 mg DAILY ORAL 10/28/20 09:00 01/26/21 08:59 10/29/20 09:44 Nifedipine (Procardia XL) 30 mg DAILY ORAL 10/29/20 14:00 11/28/20 13:59 Pantoprazole (Protonix) 40 mg EVERY 12 HOURS ORAL 10/28/20 21:00 11/27/20 20:59 10/29/20 20:12 Sevelamer Carbonate (Renvela) 800 mg THREE TIMES A DAY ORAL 10/28/20 13:00 01/26/21 12:59 10/29/20 17:32 Neurological/Psychiatric: Reports: anxiety, depressed, emotional problems, numbness, weakness Allergies: Coded Allergies: No Known Allergies (Unverified , 09/23/20) Objective Data Height (Feet): 5 Height (Inches): 1.00 Weight (Pounds): 92 General Appearance: alert Additional Comments: alert, oriented times self, place. Mood is agitated. Affect is flat. Thought process, there is a paucity of thought content. Thought content, no suicidal or homicidal ideation. Cognition is impaired. Insight and judgment is impaired. Assessment/Plan Status: doing well Assessment/Plan: ASSESSMENT: [place] I Dementia. Anxiety disorder. Rule out acute metabolic encephalopathy. [place] II Deferred. [place] III As above. [place] IV Low. [place] V 20. PLAN: 1. Celexa 20 mg. 2. Haldol IM p.r.n. for agitation. 3. Discussed with the nurse. Lona Tarango MD Oct 29, 2020 23:05
[2020-10-30] VITALS: BP 139/67
[2020-10-30 04:00] VITALS: BP 160/75
[2020-10-30] MEDS: HydrALAZINE 50mg tab ORAL SCH ×3 (05:54→22:33)
[2020-10-30] MEDS: NovoLOG Insulin Flexpen SUBQ SCH ×4 (05:56→21:10)
--- NOTE | 2020-10-30 07:23 | NUR ---
NURSE NOTES: NURSE HAND-OFF REPORT: Important Events on Shift:[Patient had dialysis, 1 L taken out.] Patient Status: [Stable] Diet: [Renal diet] Pending Orders: [] Pending Results/Labs:[] Pending MD notification:[] Latest Vital Signs: Temperature 97.6 , Pulse 67 , B/P 160 /75 , Respiratory Rate 20 , O2 SAT 98 , Nasal Cannula, O2 Flow Rate 2.0 . Vital Sign Comment: [] EKG Rhythm: Sinus Rhythm Rhythm change?: N MD Notified?: - MD Response: Latest Ness Fall Score: 50 Fall Risk: High Risk Safety Measures: Call light Within Reach, Bed Alarm Zone 2, Side Rails Side Rails x2, Bed position Low and Locked. Fall Precautions: Yellow Socks Yellow Gown Door Sign Patient Fall Education Report given to [ZENAIDA Grady].
--- NOTE | 2020-10-30 07:24 | NUR ---
NURSE NOTES: Received pt report from ZENAIDA Broussard. Pt is in bed, asleep responsive to verbal and tactile stimuli. Patient is on 2 L Nasal cannula with no signs of acute respiratory distress noted. Patient has a right 22 gauge on her hand, tko running at 5 ml. Patient has a left upper chest permacath and left upper arm AV shunt. Bed in lowest position, locked with side rails x2 up. call light within reach. Will continue to monitor.
[2020-10-30 08:00] VITALS: BP 162/65
[2020-10-30 08:44] LABS: HEMATOCRIT 36.3 % (37.0-47.0); HEMOGLOBIN 11.6 G/DL (12.0-16.0); MEAN CORPUSCULAR VOLUME 97 FL (80-99); PLATELET COUNT 240 K/UL (150-450); RED BLOOD COUNT 3.73 M/UL (4.20-5.40); RED CELL DISTRIBUTION WIDTH 17.5 % (11.6-14.8); WHITE BLOOD COUNT 7.3 K/UL (4.8-10.8)
[2020-10-30] MEDS: Docusate 100mg cap ORAL SCH ×2 (08:44→17:01)
[2020-10-30] MEDS: dexAMETHasone 10mg/ml Inj IV SCH (08:44)
[2020-10-30] MEDS: Megace 400mg/10ml Susp ORAL SCH (08:44)
[2020-10-30] MEDS: Citalopram Hydrobromide 10mg Tab ORAL SCH (08:45)
[2020-10-30 09:12] LABS: ALANINE AMINOTRANSFERASE 7 U/L (12-78); ALBUMIN 2.3 G/DL (3.4-5.0); ALBUMIN/GLOBULIN RATIO 0.4 (1.0-2.7); ALKALINE PHOSPHATASE 96 U/L (46-116); ASPARTATE AMINO TRANSFERASE 28 U/L (15-37); BILIRUBIN,TOTAL 0.3 MG/DL (0.2-1.0); BLOOD UREA NITROGEN 43 mg/dL (7-18); CALCIUM 8.5 MG/DL (8.5-10.1); CARBON DIOXIDE 28 MMOL/L (21-32); CHLORIDE 101 MMOL/L (98-107); CREATININE 4.5 MG/DL (0.55-1.30); PHOSPHORUS 3.2 MG/DL (2.5-4.9); SODIUM 140 MMOL/L (136-145)
--- NOTE | 2020-10-30 09:14 | NUR ---
CASE MANAGEMENT:REVIEW 10/30/20 SI: COVID PNA. ACUTE CHF. ESRD 98.6 125 18 162/65 99% ON 2L/NC BUN+43 CR+4.5 IS: IV DECADRON QD LEVEMIR SQ Q24 PROCARDIA XL PO QD HYDRALAZINE PO Q8HR : TELEMETRY STATUS DCP: FROM [facility] PLAN: PT EVAL F/U NOVEL COVID PENDING
--- NOTE | 2020-10-30 10:58 | NUR ---
P.T/REHAB NOTE: P.T EVALUATION COMPLETED AND TX INITIATED. PLEASE REFER TO P.T EVALUATION FOR FULL REPORT.
--- NOTE | 2020-10-30 11:11 | General Progress Note ---
Subjective Allergies: Coded Allergies: No Known Allergies (Unverified , 09/23/20) Subjective sitting in bed awake eating better blood sugar are improving venous duplex of leg negative Objective Last 24 Hour Vital Signs Date Time Temp Pulse Resp B/P (MAP) Pulse Ox O2 Delivery O2 Flow Rate FiO2 10/30/20 08:45 125 162/65 10/30/20 08:00 66 10/30/20 08:00 98.6 125 18 162/65 (97) 99 10/30/20 05:54 160/75 10/30/20 04:00 97.6 67 20 160/75 (103) 98 10/30/20 04:00 66 10/30/20 00:00 84 10/30/20 00:00 98.0 77 20 139/67 (91) 98 77 10/29/20 22:00 154/74 10/29/20 21:00 Nasal Cannula 2.0 10/29/20 20:00 75 10/29/20 20:00 97.9 79 20 154/74 (100) 99 10/29/20 16:00 97.9 73 20 150/79 (102) 96 10/29/20 16:00 73 10/29/20 12:00 97.7 73 18 143/61 (88) 95 10/29/20 12:00 78 Intake and Output 10/29/20 10/30/20 19:00 07:00 Intake Total 360 ml 240 ml Output Total 2000 ml Balance 360 ml -1760 ml Intake Oral 360 ml 240 ml Hemodialysis UF 2000 ml # Bowel Movements 1 1 Laboratory Tests 10/29/20 11:57: POC Whole Blood Glucose 208H 10/29/20 17:36: POC Whole Blood Glucose [Pending] 10/29/20 20:09: POC Whole Blood Glucose [Pending] 10/30/20 05:53: POC Whole Blood Glucose 176H 10/30/20 07:30: White Blood Count 7.3, Red Blood Count 3.73L, Hemoglobin 11.6L, Hematocrit 36.3L , Mean Corpuscular Volume 97, Mean Corpuscular Hemoglobin 31.2H, Mean Corpuscular Hemoglobin Concent 32.1, Red Cell Distribution Width 17.5H, Platelet Count 240, Mean Platelet Volume 7.7, Neutrophils (%) (Auto) , Lymphocytes (%) (Auto) , Monocytes (%) (Auto) , Eosinophils (%) (Auto) , Basophils (%) (Auto) , Neutrophils % (Manual) [Pending], Lymphocytes % (Manual) [Pending], Platelet Estimate [Pending], Platelet Morphology [Pending], Sodium Level 140, Potassium Level 4.0, Chloride Level 101, Carbon Dioxide Level 28, Blood Urea Nitrogen 43H, Creatinine 4.5H, Estimat Glomerular Filtration Rate 9.5, Glucose Level 158H, Calcium Level 8.5, Phosphorus Level 3.2, Magnesium Level 2.0, Total Bilirubin 0.3, Aspartate Amino Transf (AST/SGOT) 28, Alanine Aminotransferase (ALT/SGPT) 7L, Alkaline Phosphatase 96, C-Reactive Protein, Quantitative 4.0H, Pro-B-Type Natriuretic Peptide > [id number], Total Protein 7.7, Albumin 2.3L, Globulin 5.4, Albumin/Globulin Ratio 0.4L Height (Feet): 5 Height (Inches): 1.00 Weight (Pounds): 92 General Appearance: alert EENT: PERRL/EOMI Neck: supple Cardiovascular: regular rhythm Respiratory/Chest: crackles/rales Abdomen: non tender, soft, no organomegaly Edema: trace edema Assessment/Plan Status: doing well Assessment/Plan: 1 sob 2 covid pna 3 chf diastolic acute 4 esrd on hd 5 failure of thrive 6 dementia 7 dm poory controlled due to steroids add levamier and high dose short insulin pt/ot eval dw pt pt is very weak iv abx hd cardio and pulmonary consult Cesar Swanson MD Oct 30, 2020 11:11
--- NOTE | 2020-10-30 11:13 | Pulmonology Progress Note ---
Subjective ROS Limited/Unobtainable: Yes Interval Events: None new Constitutional: Denies: fever Respiratory: Reports: shortness of breath Cardiovascular: Reports: no symptoms Gastrointestinal/Abdominal: Reports: no symptoms Allergies: Coded Allergies: No Known Allergies (Unverified , 09/23/20) Objective Last 24 Hour Vital Signs Date Time Temp Pulse Resp B/P (MAP) Pulse Ox O2 Delivery O2 Flow Rate FiO2 10/30/20 08:45 125 162/65 10/30/20 08:00 66 10/30/20 08:00 98.6 125 18 162/65 (97) 99 10/30/20 05:54 160/75 10/30/20 04:00 97.6 67 20 160/75 (103) 98 10/30/20 04:00 66 10/30/20 00:00 84 10/30/20 00:00 98.0 77 20 139/67 (91) 98 77 10/29/20 22:00 154/74 10/29/20 21:00 Nasal Cannula 2.0 10/29/20 20:00 75 10/29/20 20:00 97.9 79 20 154/74 (100) 99 10/29/20 16:00 97.9 73 20 150/79 (102) 96 10/29/20 16:00 73 10/29/20 12:00 97.7 73 18 143/61 (88) 95 10/29/20 12:00 78 Intake and Output 10/29/20 10/30/20 19:00 07:00 Intake Total 360 ml 240 ml Output Total 2000 ml Balance 360 ml -1760 ml Intake Oral 360 ml 240 ml Hemodialysis UF 2000 ml # Bowel Movements 1 1 Objective 10/30/2020 pt asleep; saturating well on low flow oxygen 10/29/2020 pt asleep in bed; saturating well on low flow oxygen General Appearance: cachetic HEENT: normocephalic, atraumatic Respiratory: chest wall non-tender, rhonchi - bilaterally, other - dialysis catheter Cardiovascular: normal rate, regular rhythm Abdomen: soft, non tender Laboratory Tests 10/29/20 11:57: POC Whole Blood Glucose 208H 10/29/20 17:36: POC Whole Blood Glucose [Pending] 10/29/20 20:09: POC Whole Blood Glucose [Pending] 10/30/20 05:53: POC Whole Blood Glucose 176H 10/30/20 07:30: White Blood Count 7.3, Red Blood Count 3.73L, Hemoglobin 11.6L, Hematocrit 36.3L , Mean Corpuscular Volume 97, Mean Corpuscular Hemoglobin 31.2H, Mean Corpuscular Hemoglobin Concent 32.1, Red Cell Distribution Width 17.5H, Platelet Count 240, Mean Platelet Volume 7.7, Neutrophils (%) (Auto) , Lymphocytes (%) (Auto) , Monocytes (%) (Auto) , Eosinophils (%) (Auto) , Basophils (%) (Auto) , Neutrophils % (Manual) [Pending], Lymphocytes % (Manual) [Pending], Platelet Estimate [Pending], Platelet Morphology [Pending], Sodium Level 140, Potassium Level 4.0, Chloride Level 101, Carbon Dioxide Level 28, Blood Urea Nitrogen 43H, Creatinine 4.5H, Estimat Glomerular Filtration Rate 9.5, Glucose Level 158H, Calcium Level 8.5, Phosphorus Level 3.2, Magnesium Level 2.0, Total Bilirubin 0.3, Aspartate Amino Transf (AST/SGOT) 28, Alanine Aminotransferase (ALT/SGPT) 7L, Alkaline Phosphatase 96, C-Reactive Protein, Quantitative 4.0H, Pro-B-Type Natriuretic Peptide > [id number], Total Protein 7.7, Albumin 2.3L, Globulin 5.4, Albumin/Globulin Ratio 0.4L Current Medications Medications (Trade) Dose Ordered Sig/Yeimi Route PRN Reason Start Time Stop Time Status Last Admin Dose Admin Acetaminophen (Tylenol) 650 mg Q4H PRN ORAL Temp >100.5 10/27/20 14:15 11/26/20 14:14 Carvedilol (Coreg) 3.125 mg EVERY 12 HOURS ORAL 10/30/20 21:00 11/29/20 20:59 UNV Citalopram Hydrobromide (CeleXA) 20 mg DAILY ORAL 10/29/20 09:00 11/28/20 08:59 10/30/20 08:45 Dexamethasone Sodium Phosphate (Decadron 10mg/ ml Inj) 6 mg DAILY IV 10/28/20 09:00 11/06/20 09:01 10/30/20 08:44 Dextrose (Dextrose 50%) 25 ml Q30M PRN IV Hypoglycemia 10/28/20 20:45 3/7/21 20:44 Dextrose (Dextrose 50%) 50 ml Q30M PRN IV Hypoglycemia 10/28/20 20:45 01/26/21 20:44 Docusate Sodium (Colace) 100 mg TWICE A DAY ORAL 10/28/20 18:00 11/27/20 17:59 10/30/20 08:44 Haloperidol Lactate (Haldol) 5 mg Q6H PRN IM Agitation 10/28/20 15:45 12/12/20 15:44 Hydralazine HCl (Apresoline) 50 mg Q8HR ORAL 10/29/20 14:00 01/27/21 13:59 10/30/20 05:54 Insulin Aspart (NovoLOG) BEFORE MEALS AND HS SUBQ 10/28/20 21:00 01/26/21 20:59 10/30/20 05:56 Insulin Detemir (Levemir) 10 units Q24H SUBQ 10/29/20 20:00 01/27/21 19:59 10/29/20 20:11 Megestrol Acetate (Megace) 400 mg DAILY ORAL 10/28/20 09:00 01/26/21 08:59 10/30/20 08:44 Nifedipine (Procardia XL) 60 mg DAILY ORAL 10/30/20 11:00 11/28/20 13:59 UNV Pantoprazole (Protonix) 40 mg EVERY 12 HOURS ORAL 10/28/20 21:00 11/27/20 20:59 10/30/20 08:45 Sevelamer Carbonate (Renvela) 800 mg THREE TIMES A DAY ORAL 10/28/20 13:00 01/26/21 12:59 10/30/20 08:44 Assessment/Plan Assessment/Plan 1. COVID-19 pneumonia. - Continue isolation. - continue low flow oxygen; currently saturating 96% on 2 lpm NC - CXR 10/27/2020 shows multifocal infiltrate. - Continue Decadron - Discontinue ceftriaxone and azithromycin. - Repeat COVID-19 test pending 2. Renal failure, on dialysis. 3. Congestive heart failure. - BNP >35,000 - 2D echo EF 35-40% - management per cardio 4. Right eye conjunctivitis. 5. DVT ppx - D-dimer 3.08, CRP 16.1 -> 4.0 - 10/29/2020 venous ultrasound unremarkable - On SCD We will follow carefully The care of this patient was discussed with my supervising physician Time spent for this encounter was approximately 31 minutes The patient was seen and examined at bedside and all new and available data was reviewed in the patients chart. I agree with the above findings, impression, and plan. (Patient was seen earlier today. Signature timestamp does not reflect patient encounter time) Zbigniew Francis MD Oct 30, 2020 11:13 Naman Krause MD Oct 30, 2020 17:18
--- NOTE | 2020-10-30 11:25 | Infectious Diseases Prog Note ---
Assessment/Plan Assessment/Plan antibiotics : none A 1. COVID-19 pneumonia on 2 L oxygen with O2 saturation of 94%. s/p ivermectin 2. Renal failure, on dialysis. 3. Congestive heart failure. 4. Right eye conjunctivitis 5. hypertension P 1. continue decadron day 4 2. continue isolation Subjective ROS Limited/Unobtainable: Yes Allergies: Coded Allergies: No Known Allergies (Unverified , 09/23/20) Objective Last 24 Hour Vital Signs Date Time Temp Pulse Resp B/P (MAP) Pulse Ox O2 Delivery O2 Flow Rate FiO2 10/30/20 08:45 125 162/65 10/30/20 08:00 66 10/30/20 08:00 98.6 125 18 162/65 (97) 99 10/30/20 05:54 160/75 10/30/20 04:00 97.6 67 20 160/75 (103) 98 10/30/20 04:00 66 10/30/20 00:00 84 10/30/20 00:00 98.0 77 20 139/67 (91) 98 77 10/29/20 22:00 154/74 10/29/20 21:00 Nasal Cannula 2.0 10/29/20 20:00 75 10/29/20 20:00 97.9 79 20 154/74 (100) 99 10/29/20 16:00 97.9 73 20 150/79 (102) 96 10/29/20 16:00 73 10/29/20 12:00 97.7 73 18 143/61 (88) 95 10/29/20 12:00 78 Height (Feet): 5 Height (Inches): 1.00 Weight (Pounds): 92 Laboratory Tests Test 10/29/20 11:57 10/29/20 17:36 10/29/20 20:09 10/30/20 05:53 POC Whole Blood Glucose 208 MG/DL (74-106) H Pending Pending 176 MG/DL (74-106) H Test 10/30/20 07:30 White Blood Count 7.3 K/UL (4.8-10.8) Red Blood Count 3.73 M/UL (4.20-5.40) L Hemoglobin 11.6 G/DL (12.0-16.0) L Hematocrit 36.3 % (37.0-47.0) L Mean Corpuscular Volume 97 FL (80-99) Mean Corpuscular Hemoglobin 31.2 PG (27.0-31.0) H Mean Corpuscular Hemoglobin Concent 32.1 G/DL (32.0-36.0) Red Cell Distribution Width 17.5 % (11.6-14.8) H Platelet Count 240 K/UL (150-450) Mean Platelet Volume 7.7 FL (6.5-10.1) Neutrophils (%) (Auto) % (45.0-75.0) Lymphocytes (%) (Auto) % (20.0-45.0) Monocytes (%) (Auto) % (1.0-10.0) Eosinophils (%) (Auto) % (0.0-3.0) Basophils (%) (Auto) % (0.0-2.0) Neutrophils % (Manual) Pending Lymphocytes % (Manual) Pending Platelet Estimate Pending Platelet Morphology Pending Sodium Level 140 MMOL/L (136-145) Potassium Level 4.0 MMOL/L (3.5-5.1) Chloride Level 101 MMOL/L (98-107) Carbon Dioxide Level 28 MMOL/L (21-32) Blood Urea Nitrogen 43 mg/dL (7-18) H Creatinine 4.5 MG/DL (0.55-1.30) H Estimat Glomerular Filtration Rate 9.5 mL/min (>60) Glucose Level 158 MG/DL (74-106) H Calcium Level 8.5 MG/DL (8.5-10.1) Phosphorus Level 3.2 MG/DL (2.5-4.9) Magnesium Level 2.0 MG/DL (1.8-2.4) Total Bilirubin 0.3 MG/DL (0.2-1.0) Aspartate Amino Transf (AST/SGOT) 28 U/L (15-37) Alanine Aminotransferase (ALT/SGPT) 7 U/L (12-78) L Alkaline Phosphatase 96 U/L (46-116) C-Reactive Protein, Quantitative 4.0 mg/dL (0.00-0.90) H Pro-B-Type Natriuretic Peptide > 90415 pg/mL (0-125) H Total Protein 7.7 G/DL (6.4-8.2) Albumin 2.3 G/DL (3.4-5.0) L Globulin 5.4 g/dL Albumin/Globulin Ratio 0.4 (1.0-2.7) L Current Medications Medications (Trade) Dose Ordered Sig/Yeimi Route PRN Reason Start Time Stop Time Status Last Admin Dose Admin Acetaminophen (Tylenol) 650 mg Q4H PRN ORAL Temp >100.5 10/27/20 14:15 11/26/20 14:14 Carvedilol (Coreg) 3.125 mg EVERY 12 HOURS ORAL 10/30/20 21:00 11/29/20 20:59 Citalopram Hydrobromide (CeleXA) 20 mg DAILY ORAL 10/29/20 09:00 11/28/20 08:59 10/30/20 08:45 Dexamethasone Sodium Phosphate (Decadron 10mg/ ml Inj) 6 mg DAILY IV 10/28/20 09:00 11/06/20 09:01 10/30/20 08:44 Dextrose (Dextrose 50%) 25 ml Q30M PRN IV Hypoglycemia 10/28/20 20:45 01/26/21 20:44 Dextrose (Dextrose 50%) 50 ml Q30M PRN IV Hypoglycemia 10/28/20 20:45 01/26/21 20:44 Docusate Sodium (Colace) 100 mg TWICE A DAY ORAL 10/28/20 18:00 11/27/20 17:59 10/30/20 08:44 Haloperidol Lactate (Haldol) 5 mg Q6H PRN IM Agitation 10/28/20 15:45 12/12/20 15:44 Hydralazine HCl (Apresoline) 50 mg Q8HR ORAL 10/29/20 14:00 01/27/21 13:59 10/30/20 05:54 Insulin Aspart (NovoLOG) BEFORE MEALS AND HS SUBQ 10/28/20 21:00 01/26/21 20:59 10/30/20 05:56 Insulin Detemir (Levemir) 10 units Q24H SUBQ 10/29/20 20:00 01/27/21 19:59 10/29/20 20:11 Megestrol Acetate (Megace) 400 mg DAILY ORAL 10/28/20 09:00 01/26/21 08:59 10/30/20 08:44 Nifedipine (Procardia XL) 30 mg ONCE ORAL 10/30/20 11:00 10/30/20 13:00 Nifedipine (Procardia XL) 60 mg DAILY ORAL 10/31/20 09:00 11/30/20 08:59 Pantoprazole (Protonix) 40 mg EVERY 12 HOURS ORAL 10/28/20 21:00 11/27/20 20:59 10/30/20 08:45 Sevelamer Carbonate (Renvela) 800 mg THREE TIMES A DAY ORAL 10/28/20 13:00 01/26/21 12:59 10/30/20 08:44 Erika Stiles MD Oct 30, 2020 11:25
[2020-10-30 12:00] VITALS: BP 125/60
--- NOTE | 2020-10-30 13:00 | Cardiology Progress Note ---
Assessment/Plan Status Narrative 1. COVID-19 viral PNA 2. HFrEF, acute on chronic systolic on diastolic HF with EF 35-40% BNP severely elevated Fluid balance with HD 3. ESRD on HD Aneuric 4. HTN - needs better control 5. Mitral regurgitation - mod-severe contributing to severity of HF 6. possible ASD with L to R shunt 7. Sinus tachycardia 2/2 viral PNA and fever Pt in fluid overload, recommend microfiltration during HD. Echo today shows possible ASD, needs PALLAVI with bubble study to r/o shunt. SBP out of control, medications adjusted. Further recs to follow. Subjective ROS Limited/Unobtainable: No Cardiovascular: Reports: edema Respiratory: Reports: shortness of breath Gastrointestinal/Abdominal: Reports: no symptoms Genitourinary: Reports: no symptoms Subjective SOB today Objective Last 24 Hour Vital Signs Date Time Temp Pulse Resp B/P (MAP) Pulse Ox O2 Delivery O2 Flow Rate FiO2 10/30/20 11:27 101 150/76 10/30/20 09:00 Nasal Cannula 2.0 10/30/20 08:45 125 162/65 10/30/20 08:00 66 10/30/20 08:00 98.6 125 18 162/65 (97) 99 10/30/20 05:54 160/75 10/30/20 04:00 97.6 67 20 160/75 (103) 98 10/30/20 04:00 66 10/30/20 00:00 84 10/30/20 00:00 98.0 77 20 139/67 (91) 98 77 10/29/20 22:00 154/74 10/29/20 21:00 Nasal Cannula 2.0 10/29/20 20:00 75 10/29/20 20:00 97.9 79 20 154/74 (100) 99 10/29/20 16:00 97.9 73 20 150/79 (102) 96 10/29/20 16:00 73 General Appearance: alert, lethargic EENT: PERRL/EOMI Neck: no JVD Rhythm: NSR Cardiovascular: regular rhythm, tachycardia Respiratory/Chest: no accessory muscle use, decreased breath sounds Abdomen: soft Extremities: trace edema Neurologic: oriented x 3 Intake and Output 10/29/20 10/30/20 19:00 07:00 Intake Total 360 ml 240 ml Output Total 2000 ml Balance 360 ml -1760 ml Intake Oral 360 ml 240 ml Hemodialysis UF 2000 ml # Bowel Movements 1 1 Laboratory Tests Test 10/29/20 17:36 10/29/20 20:09 10/30/20 05:53 10/30/20 07:30 POC Whole Blood Glucose Pending Pending 176 MG/DL (74-106) H White Blood Count 7.3 K/UL (4.8-10.8) Red Blood Count 3.73 M/UL (4.20-5.40) L Hemoglobin 11.6 G/DL (12.0-16.0) L Hematocrit 36.3 % (37.0-47.0) L Mean Corpuscular Volume 97 FL (80-99) Mean Corpuscular Hemoglobin 31.2 PG (27.0-31.0) H Mean Corpuscular Hemoglobin Concent 32.1 G/DL (32.0-36.0) Red Cell Distribution Width 17.5 % (11.6-14.8) H Platelet Count 240 K/UL (150-450) Mean Platelet Volume 7.7 FL (6.5-10.1) Neutrophils (%) (Auto) % (45.0-75.0) Lymphocytes (%) (Auto) % (20.0-45.0) Monocytes (%) (Auto) % (1.0-10.0) Eosinophils (%) (Auto) % (0.0-3.0) Basophils (%) (Auto) % (0.0-2.0) Differential Total Cells Counted 100 Neutrophils % (Manual) 88 % (45-75) H Lymphocytes % (Manual) 7 % (20-45) L Monocytes % (Manual) 5 % (1-10) Eosinophils % (Manual) 0 % (0-3) Basophils % (Manual) 0 % (0-2) Band Neutrophils 0 % (0-8) Platelet Estimate Adequate Platelet Morphology Normal Hypochromasia 1+ Anisocytosis 1+ Macrocytosis 1+ Sodium Level 140 MMOL/L (136-145) Potassium Level 4.0 MMOL/L (3.5-5.1) Chloride Level 101 MMOL/L (98-107) Carbon Dioxide Level 28 MMOL/L (21-32) Blood Urea Nitrogen 43 mg/dL (7-18) H Creatinine 4.5 MG/DL (0.55-1.30) H Estimat Glomerular Filtration Rate 9.5 mL/min (>60) Glucose Level 158 MG/DL (74-106) H Calcium Level 8.5 MG/DL (8.5-10.1) Phosphorus Level 3.2 MG/DL (2.5-4.9) Magnesium Level 2.0 MG/DL (1.8-2.4) Total Bilirubin 0.3 MG/DL (0.2-1.0) Aspartate Amino Transf (AST/SGOT) 28 U/L (15-37) Alanine Aminotransferase (ALT/SGPT) 7 U/L (12-78) L Alkaline Phosphatase 96 U/L (46-116) C-Reactive Protein, Quantitative 4.0 mg/dL (0.00-0.90) H Pro-B-Type Natriuretic Peptide > 63407 pg/mL (0-125) H Total Protein 7.7 G/DL (6.4-8.2) Albumin 2.3 G/DL (3.4-5.0) L Globulin 5.4 g/dL Albumin/Globulin Ratio 0.4 (1.0-2.7) L Microbiology Date/Time Source Procedure Growth Status 10/29/20 18:00 Nasopharynx Coronavirus COVID-19 PCR ([facility]) - Final Complete Pamela Chowdhury PA-C Oct 30, 2020 13:00
--- NOTE | 2020-10-30 15:04 | NUR ---
CARDIOLOGY Dr. Echo bautistafesed to do bubble study due to covid. Addendum: 10/30/20 at 1509 by BRANDON GROVER CARDIOLOGY Dr. Dodge refused to do bubble study due to covid.
--- NOTE | 2020-10-30 15:45 | Nephrology Progress Note ---
Assessment/Plan Problem List: (1) End stage renal disease on dialysis (2) C. difficile colitis (3) Transient hypotension (4) Diastolic CHF, chronic Assessment 75-year-old female presents with respiratory distress and COVID-19 infection Patient has end-stage renal disease and last dialyzed 4 days ago Patient presents with high potassium History of C. difficile colitis History of diabetes mellitus History of hypertension, presents with transient hypotension History of cardiomyopathy and diastolic CHF Plan October 30: Last dialyzed October 29. Due for dialysis October 31. Continue per consultants. October 29: Patient dialyzed last evening of October 27. Serum creatinine and electrolyte much improved Continue per current treatment plan Per orders Next dialysis today October 29 Check labs in a.m. Subjective ROS Limited/Unobtainable: No Constitutional: Reports: malaise Objective Objective Last 24 Hour Vital Signs Date Time Temp Pulse Resp B/P (MAP) Pulse Ox O2 Delivery O2 Flow Rate FiO2 10/30/20 13:18 125/50 10/30/20 12:00 98.1 81 18 125/60 (81) 99 10/30/20 12:00 78 10/30/20 11:27 101 150/76 10/30/20 09:00 Nasal Cannula 2.0 10/30/20 08:45 125 162/65 10/30/20 08:00 66 10/30/20 08:00 98.6 125 18 162/65 (97) 99 10/30/20 05:54 160/75 10/30/20 04:00 97.6 67 20 160/75 (103) 98 10/30/20 04:00 66 10/30/20 00:00 84 10/30/20 00:00 98.0 77 20 139/67 (91) 98 77 10/29/20 22:00 154/74 10/29/20 21:00 Nasal Cannula 2.0 10/29/20 20:00 75 10/29/20 20:00 97.9 79 20 154/74 (100) 99 10/29/20 16:00 97.9 73 20 150/79 (102) 96 10/29/20 16:00 73 Intake and Output 10/29/20 10/30/20 19:00 07:00 Intake Total 360 ml 240 ml Output Total 2000 ml Balance 360 ml -1760 ml Intake Oral 360 ml 240 ml Hemodialysis UF 2000 ml # Bowel Movements 1 1 Laboratory Tests 10/29/20 17:36: POC Whole Blood Glucose [Pending] 10/29/20 20:09: POC Whole Blood Glucose [Pending] 10/30/20 05:53: POC Whole Blood Glucose 176H 10/30/20 07:30: White Blood Count 7.3, Red Blood Count 3.73L, Hemoglobin 11.6L, Hematocrit 36.3L , Mean Corpuscular Volume 97, Mean Corpuscular Hemoglobin 31.2H, Mean Corpuscular Hemoglobin Concent 32.1, Red Cell Distribution Width 17.5H, Platelet Count 240, Mean Platelet Volume 7.7, Neutrophils (%) (Auto) , Lymphocytes (%) (Auto) , Monocytes (%) (Auto) , Eosinophils (%) (Auto) , Basophils (%) (Auto) , Differential Total Cells Counted 100, Neutrophils % (Manual) 88H, Lymphocytes % (Manual) 7L, Monocytes % (Manual) 5, Eosinophils % (Manual) 0, Basophils % (Manual) 0, Band Neutrophils 0, Platelet Estimate Adequate, Platelet Morphology Normal, Hypochromasia 1+, Anisocytosis 1+, Macrocytosis 1+, Sodium Level 140, Potassium Level 4.0, Chloride Level 101, Carbon Dioxide Level 28, Blood Urea Nitrogen 43H, Creatinine 4.5H, Estimat Glomerular Filtration Rate 9.5, Glucose Level 158H, Calcium Level 8.5, Phosphorus Level 3.2, Magnesium Level 2.0, Total Bilirubin 0.3, Aspartate Amino Transf (AST/SGOT) 28, Alanine Aminotransferase (ALT/SGPT) 7L, Alkaline Phosphatase 96, C-Reactive Protein, Quantitative 4.0H, Pro-B-Type Natriuretic Peptide > 47796H, Total Protein 7.7, Albumin 2.3L, Gl obulin 5.4, Albumin/Globulin Ratio 0.4L Height (Feet): 5 Height (Inches): 1.00 Weight (Pounds): 92 General Appearance: no apparent distress, lethargic Cardiovascular: tachycardia Respiratory/Chest: decreased breath sounds Abdomen: distended Chris Puckett MD Oct 30, 2020 15:45
[2020-10-30 16:00] VITALS: BP 102/52
[2020-10-30] MEDS ORDERED: PROTONIX40 M2 PO (18:39)
[2020-10-30] MEDS ORDERED: PRO-STAT LIQUID30 ML ORAL (18:39)
[2020-10-30] MEDS ORDERED: ACIDOPHILUS1 EAC4 PO (18:39)
[2020-10-30] MEDS ORDERED: LANTUS SOL100 UNIT/1 SUBQ (18:39)
[2020-10-30] MEDS ORDERED: NEPRO CARB STE237 ML PO (18:44)
--- NOTE | 2020-10-30 19:19 | NUR ---
NURSE HAND-OFF REPORT: Important Events on Shift:NA Patient Status: Stable Diet: Renal Diet Pending Orders: NA Pending Results/Labs:NA Pending MD notification:NA Latest Vital Signs: Temperature 99.1 , Pulse 79 , B/P 102 /52 , Respiratory Rate 18 , O2 SAT 98 , Nasal Cannula, O2 Flow Rate 2.0 . Vital Sign Comment: Stable EKG Rhythm: Sinus Rhythm Rhythm change?: N MD Notified?: - MD Response: Latest Ness Fall Score: 50 Fall Risk: High Risk Safety Measures: Call light Within Reach, Bed Alarm Zone 2, Side Rails Side Rails x2, Bed position Low and Locked. Fall Precautions: Yellow Socks Yellow Gown Door Sign Patient Fall Education Report given to ZENAIDA Jimenez.
--- NOTE | 2020-10-30 19:20 | NUR ---
Receive a report from Donte/Olivia Pink. Round is made. Awake. No acute distress noted. Lying in bed. Call light within reach. Will continue to monitor.
[2020-10-30 20:00] VITALS: BP 114/45
[2020-10-30] MEDS: Levemir Flexpen SUBQ SCH (21:09)
--- NOTE | 2020-10-30 23:12 | Psychiatric Progress Note ---
Psychiatry Progress Note Psychiatry Progress Note Medications Current Medications Medications (Trade) Dose Ordered Sig/Yeimi Route PRN Reason Start Time Stop Time Status Last Admin Dose Admin Acetaminophen (Tylenol) 650 mg Q4H PRN ORAL Temp >100.5 10/27/20 14:15 11/26/20 14:14 Carvedilol (Coreg) 3.125 mg EVERY 12 HOURS ORAL 10/30/20 21:00 11/29/20 20:59 Citalopram Hydrobromide (CeleXA) 20 mg DAILY ORAL 10/29/20 09:00 11/28/20 08:59 10/30/20 08:45 Dexamethasone Sodium Phosphate (Decadron 10mg/ ml Inj) 6 mg DAILY IV 10/28/20 09:00 11/06/20 09:01 10/30/20 08:44 Dextrose (Dextrose 50%) 25 ml Q30M PRN IV Hypoglycemia 10/28/20 20:45 01/26/21 20:44 Dextrose (Dextrose 50%) 50 ml Q30M PRN IV Hypoglycemia 10/28/20 20:45 01/26/21 20:44 Docusate Sodium (Colace) 100 mg TWICE A DAY ORAL 10/28/20 18:00 11/27/20 17:59 10/30/20 17:01 Haloperidol Lactate (Haldol) 5 mg Q6H PRN IM Agitation 10/28/20 15:45 12/12/20 15:44 Hydralazine HCl (Apresoline) 50 mg Q8HR ORAL 10/29/20 14:00 01/27/21 13:59 10/30/20 22:33 Insulin Aspart (NovoLOG) BEFORE MEALS AND HS SUBQ 10/28/20 21:00 01/26/21 20:59 10/30/20 21:10 Insulin Detemir (Levemir) 10 units Q24H SUBQ 10/29/20 20:00 01/27/21 19:59 10/30/20 21:09 Megestrol Acetate (Megace) 400 mg DAILY ORAL 10/28/20 09:00 01/26/21 08:59 10/30/20 08:44 Nifedipine (Procardia XL) 60 mg DAILY ORAL 10/31/20 09:00 11/30/20 08:59 Pantoprazole (Protonix) 40 mg EVERY 12 HOURS ORAL 10/28/20 21:00 11/27/20 20:59 10/30/20 22:29 Sevelamer Carbonate (Renvela) 800 mg THREE TIMES A DAY ORAL 10/28/20 13:00 01/26/21 12:59 10/30/20 17:01 Neurological/Psychiatric: Reports: anxiety, depressed, emotional problems, numbness, weakness Allergies: Coded Allergies: No Known Allergies (Unverified , 09/23/20) Objective Data Height (Feet): 5 Height (Inches): 1.00 Weight (Pounds): 92 General Appearance: no apparent distress Additional Comments: alert, oriented times self, place. Mood is agitated. Affect is flat. Thought process, there is a paucity of thought content. Thought content, no suicidal or homicidal ideation. Cognition is impaired. Insight and judgment is impaired. Assessment/Plan Morrison I: ASSESSMENT: Morrison I Dementia. Anxiety disorder. Rule out acute metabolic encephalopathy. Morrison II Deferred. Morrison III As above. Morrison IV Low. Morrison V 20. PLAN: 1. Celexa 20 mg. 2. Haldol IM p.r.n. for agitation. 3. Discussed with the nurse. Status: doing well Status Narrative ASSESSMENT: Morrison I Dementia. Anxiety disorder. Rule out acute metabolic encephalopathy. Morrison II Deferred. Morrison III As above. Morrison IV Low. Morrison V 20. PLAN: 1. Celexa 20 mg. 2. Haldol IM p.r.n. for agitation. 3. Discussed with the nurse. Assessment/Plan: ASSESSMENT: Morrison I Dementia. Anxiety disorder. Rule out acute metabolic encephalopathy. Morrison II Deferred. Morrison III As above. Morrison IV Low. Morrison V 20. PLAN: 1. Celexa 20 mg. 2. Haldol IM p.r.n. for agitation. 3. Discussed with the nurse. Lona Tarango MD Oct 30, 2020 23:12
[2020-10-31 01:00] VITALS: BP 114/51
--- NOTE | 2020-10-31 01:00 | NUR ---
NURSE NOTES: Patient received from ZENAIDA Jimenez, transferred from telemetry, no belongings. Noted sacral dti and bilateral heel dti's, no photos previously uploaded. Pictures taken and uploaded, wound care protocol initiated and dietary non MD order placed. Applied cavilon, optifoam on bilateral heels and coccyx/sacrum. Patient is awake and alert to time and place, Patient is on 2 L O2 Nasal cannula with no signs of acute respiratory distress noted at 96%, breathing even and unlabored. Patient has a right hand 22 gauge, patent, asymptomatic. Patient has a left upper chest permacath and left upper arm AV shunt, bruit, thrill present. Patient appears to be comfortable and no complaints at this time. Bed is in the lowest position and locked, bed alarm on, call light within reach. Will continue to monitor.
[2020-10-31 04:51] VITALS: BP 140/74
[2020-10-31] MEDS: HydrALAZINE 50mg tab ORAL SCH ×3 (06:11→22:47)
[2020-10-31] MEDS: NovoLOG Insulin Flexpen SUBQ SCH ×4 (06:12→22:57)
--- NOTE | 2020-10-31 06:48 | NUR ---
NURSE NOTES: Pt saturating at 100% on 2 L nasal cannula, titrated down to 1 L and will reevaluate need for O2, no sob
--- NOTE | 2020-10-31 07:42 | NUR ---
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 Vital Sign Comment: Stable EKG Rhythm: Sinus Rhythm Rhythm change?: N MD Notified?: - MD Response: Latest Ness Fall Score: 50 Fall Risk: High Risk Safety Measures: Call light Within Reach, Bed Alarm Zone 2, Side Rails Side Rails x2, Bed position Low and Locked. Fall Precautions: Yellow Socks Yellow Gown Door Sign Patient Fall Education Report given to ZENAIDA Orr
--- NOTE | 2020-10-31 07:43 | NUR ---
NURSE NOTES: Pt is in the bed alert and awake. pt is eating breakfast at this time. no fever noted at this time. no episodes of coughing noted. respiration is even and unlabored with O2 @2l/min via NC. HOB elevated. no acute distress noted at this time. call light is placed within reach.
[2020-10-31 08:00] VITALS: BP 136/60
[2020-10-31] MEDS: Megace 400mg/10ml Susp ORAL SCH (09:46)
[2020-10-31] MEDS: dexAMETHasone 10mg/ml Inj IV SCH (09:47)
[2020-10-31] MEDS: Docusate 100mg cap ORAL SCH ×2 (09:47→17:07)
[2020-10-31] MEDS: Citalopram Hydrobromide 10mg Tab ORAL SCH (09:48)
--- NOTE | 2020-10-31 10:13 | NUR ---
CARDIOLOGY: DR MART CANCELLED THE BUBBLE STUDY DUE TO PATIENT IS COVID +.
--- NOTE | 2020-10-31 11:50 | General Progress Note ---
Subjective Allergies: Coded Allergies: No Known Allergies (Unverified , 09/23/20) Subjective sitting in bed awake eating better blood sugar are improving venous duplex of leg negative Objective Last 24 Hour Vital Signs Date Time Temp Pulse Resp B/P (MAP) Pulse Ox O2 Delivery O2 Flow Rate FiO2 10/31/20 08:00 98.2 78 18 136/60 (85) 97 10/31/20 06:11 134/58 10/31/20 04:51 98.4 80 19 140/74 (96) 97 10/31/20 01:00 98.4 76 20 114/51 (72) 94 10/31/20 01:00 Nasal Cannula 2.0 10/30/20 22:33 106/86 10/30/20 21:00 82 114/45 10/30/20 21:00 Nasal Cannula 2.0 10/30/20 20:00 98.4 84 18 114/45 (68) 91 10/30/20 16:00 99.1 71 18 102/52 (69) 98 10/30/20 16:00 79 10/30/20 13:18 125/50 10/30/20 12:00 98.1 81 18 125/60 (81) 99 10/30/20 12:00 78 Intake and Output 10/30/20 10/31/20 19:00 07:00 Intake Total 540 ml 60 ml Balance 540 ml 60 ml Intake Oral 540 ml 60 ml # Bowel Movements 1 1 Laboratory Tests 10/30/20 20:57: POC Whole Blood Glucose 268H 10/31/20 06:05: POC Whole Blood Glucose [Pending] Height (Feet): 5 Height (Inches): 1.00 Weight (Pounds): 92 General Appearance: alert EENT: PERRL/EOMI Neck: supple Cardiovascular: regular rhythm Respiratory/Chest: crackles/rales Abdomen: non tender, soft Assessment/Plan Status: doing well Assessment/Plan: 1 sob 2 covid pna 3 chf diastolic acute 4 esrd on hd 5 failure of thrive 6 dementia 7 dm poory controlled due to steroids add levamier and high dose short insulin pt/ot eval dw pt pt is very weak iv abx hd cardio and pulmonary consult Cesar Swanson MD Oct 31, 2020 11:50
[2020-10-31 12:00] VITALS: BP 129/72
--- NOTE | 2020-10-31 12:13 | Infectious Diseases Prog Note ---
Assessment/Plan Assessment/Plan A 1. COVID-19 pneumonia s/p ivermectin 2. Renal failure, on dialysis. 3. Congestive heart failure. 4. Right eye conjunctivitis 5. hypertension 6. Hypoxemia P 1. continue Decadron day 5 2. continue isolation Subjective ROS Limited/Unobtainable: Yes Allergies: Coded Allergies: No Known Allergies (Unverified , 09/23/20) Objective Last 24 Hour Vital Signs Date Time Temp Pulse Resp B/P (MAP) Pulse Ox O2 Delivery O2 Flow Rate FiO2 10/31/20 08:00 98.2 78 18 136/60 (85) 97 10/31/20 06:11 134/58 10/31/20 04:51 98.4 80 19 140/74 (96) 97 10/31/20 01:00 98.4 76 20 114/51 (72) 94 10/31/20 01:00 Nasal Cannula 2.0 10/30/20 22:33 106/86 10/30/20 21:00 82 114/45 10/30/20 21:00 Nasal Cannula 2.0 10/30/20 20:00 98.4 84 18 114/45 (68) 91 10/30/20 16:00 99.1 71 18 102/52 (69) 98 10/30/20 16:00 79 10/30/20 13:18 125/50 Height (Feet): 5 Height (Inches): 1.00 Weight (Pounds): 92 General Appearance: no acute distress HEENT: mucous membranes moist Respiratory/Chest: lungs clear Cardiovascular: normal rate Abdomen: soft, non tender Extremities: no edema Neurologic/Psychiatric: other - sleeping Microbiology Date/Time Source Procedure Growth Status 10/29/20 18:00 Nasopharynx Coronavirus COVID-19 PCR ([facility]) - Final Complete Laboratory Tests Test 10/30/20 20:57 10/31/20 06:05 POC Whole Blood Glucose 268 MG/DL (74-106) H Pending Current Medications Medications (Trade) Dose Ordered Sig/Yeimi Route PRN Reason Start Time Stop Time Status Last Admin Dose Admin Acetaminophen (Tylenol) 650 mg Q4H PRN ORAL Temp >100.5 10/27/20 14:15 11/26/20 14:14 Carvedilol (Coreg) 3.125 mg EVERY 12 HOURS ORAL 10/30/20 21:00 11/29/20 20:59 Citalopram Hydrobromide (CeleXA) 20 mg DAILY ORAL 10/29/20 09:00 11/28/20 08:59 10/31/20 09:48 Dexamethasone Sodium Phosphate (Decadron 10mg/ ml Inj) 6 mg DAILY IV 10/28/20 09:00 11/06/20 09:01 10/31/20 09:47 Dextrose (Dextrose 50%) 25 ml Q30M PRN IV Hypoglycemia 10/28/20 20:45 01/26/21 20:44 Dextrose (Dextrose 50%) 50 ml Q30M PRN IV Hypoglycemia 10/28/20 20:45 01/26/21 20:44 Docusate Sodium (Colace) 100 mg TWICE A DAY ORAL 10/28/20 18:00 11/27/20 17:59 10/31/20 09:47 Haloperidol Lactate (Haldol) 5 mg Q6H PRN IM Agitation 10/28/20 15:45 12/12/20 15:44 Hydralazine HCl (Apresoline) 50 mg Q8HR ORAL 10/29/20 14:00 01/27/21 13:59 10/31/20 06:11 Insulin Aspart (NovoLOG) BEFORE MEALS AND HS SUBQ 10/28/20 21:00 01/26/21 20:59 10/31/20 06:12 Insulin Detemir (Levemir) 10 units Q24H SUBQ 10/29/20 20:00 01/27/21 19:59 10/30/20 21:09 Megestrol Acetate (Megace) 400 mg DAILY ORAL 10/28/20 09:00 01/26/21 08:59 10/31/20 09:46 Nifedipine (Procardia XL) 60 mg DAILY ORAL 10/31/20 09:00 11/30/20 08:59 Pantoprazole (Protonix) 40 mg EVERY 12 HOURS ORAL 10/28/20 21:00 11/27/20 20:59 10/31/20 09:47 Sevelamer Carbonate (Renvela) 800 mg THREE TIMES A DAY ORAL 10/28/20 13:00 01/26/21 12:59 10/31/20 09:48 Aryan Darby MD Oct 31, 2020 12:13
--- NOTE | 2020-10-31 12:20 | Nephrology Progress Note ---
Assessment/Plan Problem List: (1) End stage renal disease on dialysis (2) C. difficile colitis (3) Transient hypotension (4) Diastolic CHF, chronic Assessment 75-year-old female presents with respiratory distress and COVID-19 infection Patient has end-stage renal disease and last dialyzed 4 days ago Patient presents with high potassium History of C. difficile colitis History of diabetes mellitus History of hypertension, presents with transient hypotension History of cardiomyopathy and diastolic CHF Plan October 31: Due for dialysis today. No labs drawn today. Continue per consultants. Will check can panel tomorrow. Medication list reviewed. Blood pressure stable. October 30: Last dialyzed October 29. Due for dialysis October 31. Continue per consultants. October 29: Patient dialyzed last evening of October 27. Serum creatinine and electrolyte much improved Continue per current treatment plan Per orders Next dialysis today October 29 Check labs in a.m. Subjective ROS Limited/Unobtainable: No Constitutional: Reports: malaise Objective Objective Last 24 Hour Vital Signs Date Time Temp Pulse Resp B/P (MAP) Pulse Ox O2 Delivery O2 Flow Rate FiO2 10/31/20 08:00 98.2 78 18 136/60 (85) 97 10/31/20 06:11 134/58 10/31/20 04:51 98.4 80 19 140/74 (96) 97 10/31/20 01:00 98.4 76 20 114/51 (72) 94 10/31/20 01:00 Nasal Cannula 2.0 10/30/20 22:33 106/86 10/30/20 21:00 82 114/45 10/30/20 21:00 Nasal Cannula 2.0 10/30/20 20:00 98.4 84 18 114/45 (68) 91 10/30/20 16:00 99.1 71 18 102/52 (69) 98 10/30/20 16:00 79 10/30/20 13:18 125/50 Intake and Output 10/30/20 10/31/20 19:00 07:00 Intake Total 540 ml 60 ml Balance 540 ml 60 ml Intake Oral 540 ml 60 ml # Bowel Movements 1 1 Current Medications Medications (Trade) Dose Ordered Sig/Yeimi Route PRN Reason Start Time Stop Time Status Last Admin Dose Admin Acetaminophen (Tylenol) 650 mg Q4H PRN ORAL Temp >100.5 10/27/20 14:15 11/26/20 14:14 Carvedilol (Coreg) 3.125 mg EVERY 12 HOURS ORAL 10/30/20 21:00 11/29/20 20:59 Citalopram Hydrobromide (CeleXA) 20 mg DAILY ORAL 10/29/20 09:00 11/28/20 08:59 10/31/20 09:48 Dexamethasone Sodium Phosphate (Decadron 10mg/ ml Inj) 6 mg DAILY IV 10/28/20 09:00 11/06/20 09:01 10/31/20 09:47 Dextrose (Dextrose 50%) 25 ml Q30M PRN IV Hypoglycemia 10/28/20 20:45 01/26/21 20:44 Dextrose (Dextrose 50%) 50 ml Q30M PRN IV Hypoglycemia 10/28/20 20:45 01/26/21 20:44 Docusate Sodium (Colace) 100 mg TWICE A DAY ORAL 10/28/20 18:00 11/27/20 17:59 10/31/20 09:47 Haloperidol Lactate (Haldol) 5 mg Q6H PRN IM Agitation 10/28/20 15:45 12/12/20 15:44 Hydralazine HCl (Apresoline) 50 mg Q8HR ORAL 10/29/20 14:00 01/27/21 13:59 10/31/20 06:11 Insulin Aspart (NovoLOG) BEFORE MEALS AND HS SUBQ 10/28/20 21:00 01/26/21 20:59 10/31/20 06:12 Insulin Detemir (Levemir) 10 units Q24H SUBQ 10/29/20 20:00 01/27/21 19:59 10/30/20 21:09 Megestrol Acetate (Megace) 400 mg DAILY ORAL 10/28/20 09:00 01/26/21 08:59 10/31/20 09:46 Nifedipine (Procardia XL) 60 mg DAILY ORAL 10/31/20 09:00 11/30/20 08:59 Pantoprazole (Protonix) 40 mg EVERY 12 HOURS ORAL 10/28/20 21:00 11/27/20 20:59 10/31/20 09:47 Sevelamer Carbonate (Renvela) 800 mg THREE TIMES A DAY ORAL 10/28/20 13:00 01/26/21 12:59 10/31/20 09:48 Laboratory Tests 10/30/20 20:57: POC Whole Blood Glucose 268H 10/31/20 06:05: POC Whole Blood Glucose [Pending] Height (Feet): 5 Height (Inches): 1.00 Weight (Pounds): 92 General Appearance: no apparent distress Cardiovascular: normal rate Respiratory/Chest: decreased breath sounds Abdomen: distended Chris Puckett MD Oct 31, 2020 12:20
--- NOTE | 2020-10-31 12:57 | Pulmonology Progress Note ---
Subjective ROS Limited/Unobtainable: No Interval Events: None new Constitutional: Denies: fever Respiratory: Reports: no symptoms Cardiovascular: Reports: no symptoms Gastrointestinal/Abdominal: Reports: no symptoms Allergies: Coded Allergies: No Known Allergies (Unverified , 09/23/20) Objective Last 24 Hour Vital Signs Date Time Temp Pulse Resp B/P (MAP) Pulse Ox O2 Delivery O2 Flow Rate FiO2 10/31/20 08:00 98.2 78 18 136/60 (85) 97 10/31/20 06:11 134/58 10/31/20 04:51 98.4 80 19 140/74 (96) 97 10/31/20 01:00 98.4 76 20 114/51 (72) 94 10/31/20 01:00 Nasal Cannula 2.0 10/30/20 22:33 106/86 10/30/20 21:00 82 114/45 10/30/20 21:00 Nasal Cannula 2.0 10/30/20 20:00 98.4 84 18 114/45 (68) 91 10/30/20 16:00 99.1 71 18 102/52 (69) 98 10/30/20 16:00 79 10/30/20 13:18 125/50 Intake and Output 10/30/20 10/31/20 19:00 07:00 Intake Total 540 ml 60 ml Balance 540 ml 60 ml Intake Oral 540 ml 60 ml # Bowel Movements 1 1 Objective 10/31/2020 patient alert; saturating well on 1 lpm NC 10/30/2020 pt asleep; saturating well on low flow oxygen 10/29/2020 pt asleep in bed; saturating well on low flow oxygen General Appearance: cachetic HEENT: normocephalic, atraumatic Respiratory: chest wall non-tender, rhonchi - bilaterally, other - dialysis catheter Cardiovascular: normal rate, regular rhythm Abdomen: soft, non tender Microbiology Date/Time Source Procedure Growth Status 10/29/20 18:00 Nasopharynx Coronavirus COVID-19 PCR ([facility]) - Final Complete Laboratory Tests 10/30/20 20:57: POC Whole Blood Glucose 268H 10/31/20 06:05: POC Whole Blood Glucose [Pending] Current Medications Medications (Trade) Dose Ordered Sig/Yeimi Route PRN Reason Start Time Stop Time Status Last Admin Dose Admin Acetaminophen (Tylenol) 650 mg Q4H PRN ORAL Temp >100.5 10/27/20 14:15 11/26/20 14:14 Carvedilol (Coreg) 3.125 mg EVERY 12 HOURS ORAL 10/30/20 21:00 11/29/20 20:59 Citalopram Hydrobromide (CeleXA) 20 mg DAILY ORAL 10/29/20 09:00 11/28/20 08:59 10/31/20 09:48 Dexamethasone Sodium Phosphate (Decadron 10mg/ ml Inj) 6 mg DAILY IV 10/28/20 09:00 11/06/20 09:01 10/31/20 09:47 Dextrose (Dextrose 50%) 25 ml Q30M PRN IV Hypoglycemia 10/28/20 20:45 01/26/21 20:44 Dextrose (Dextrose 50%) 50 ml Q30M PRN IV Hypoglycemia 10/28/20 20:45 01/26/21 20:44 Docusate Sodium (Colace) 100 mg TWICE A DAY ORAL 10/28/20 18:00 11/27/20 17:59 10/31/20 09:47 Haloperidol Lactate (Haldol) 5 mg Q6H PRN IM Agitation 10/28/20 15:45 12/12/20 15:44 Hydralazine HCl (Apresoline) 50 mg Q8HR ORAL 10/29/20 14:00 01/27/21 13:59 10/31/20 06:11 Insulin Aspart (NovoLOG) BEFORE MEALS AND HS SUBQ 10/28/20 21:00 01/26/21 20:59 10/31/20 12:44 Insulin Detemir (Levemir) 10 units Q24H SUBQ 10/29/20 20:00 01/27/21 19:59 10/30/20 21:09 Megestrol Acetate (Megace) 400 mg DAILY ORAL 10/28/20 09:00 01/26/21 08:59 10/31/20 09:46 Nifedipine (Procardia XL) 60 mg DAILY ORAL 10/31/20 09:00 11/30/20 08:59 Pantoprazole (Protonix) 40 mg EVERY 12 HOURS ORAL 10/28/20 21:00 11/27/20 20:59 10/31/20 09:47 Sevelamer Carbonate (Renvela) 800 mg THREE TIMES A DAY ORAL 10/28/20 13:00 01/26/21 12:59 10/31/20 12:47 Assessment/Plan Assessment/Plan 1. COVID-19 pneumonia. - Continue isolation. - continue low flow oxygen; currently saturating 96% on 1 lpm NC - CXR 10/27/2020 shows multifocal infiltrate. - Continue Decadron - Discontinue ceftriaxone and azithromycin. - Repeat COVID-19 test 10/29/2020 positive 2. Renal failure, on dialysis. 3. Congestive heart failure. - BNP >35,000 - 2D echo EF 35-40% - management per cardio 4. Right eye conjunctivitis. 5. DVT ppx - D-dimer 3.08, CRP 16.1 -> 4.0 - 10/29/2020 venous ultrasound unremarkable - On SCD We will follow carefully The care of this patient was discussed with my supervising physician Time spent for this encounter was approximately 31 minutes Zbigniew Serrano Oct 31, 2020 12:57 Naman Krause MD Oct 31, 2020 18:03
[2020-10-31 16:00] VITALS: BP 131/79
--- NOTE | 2020-10-31 16:43 | NUR ---
NURSE NOTES:WOUND CARE NOTES:Pt presented on admission with multiple Pressure Injuries. DTPI Sacrum(L)8cm x (W)8cm. Base of wound is purpuric with surrounding non-Blanchable erythema. Darker skin tone without erythema or induration periwound. Pt complained at site of DTPI when minimally palpated. Non-Blanchable erythema without induration R Ischium(L)7cm x (W)7.5cm. L Heel is boggy with non-Blanchable erythema. R heel is Boggy with non-blanchable erythema. Tx.Plan: Apply Moisture Barrier Paste to Sacrum. Cover with Optifoam drsg. Change every 3 days and prn.. Apply Moisture Barrier Paste to R and L Ischial tuberosities. Cover each Ischium with Optifoam drsgs. Change every 3 days and prn. Apply Cavilon Skin Barrier to R and L Heels and each Malleoli. Cover each site with Optifoam drsgs. Change every 7 days and prn. Cover Bony prominences as needed with Optifoam drsgs. Reposition at least every 2 hours or as tolerated. Off-load heels with Pillow. Addendum: 10/31/20 at 1811 by Becca So LVN CORRECTION TO ABOVE WOUND NOTES:Pt noted to have pressure injury on 10/30/2020.
--- NOTE | 2020-10-31 17:15 | Cardiology Progress Note ---
Assessment/Plan Status Narrative 1. COVID-19 viral PNA 2. HFrEF, acute on chronic systolic on diastolic HF with EF 35-40% BNP severely elevated Fluid balance with HD Troponin 0.004 3. ESRD on HD Aneuric 4. HTN - needs better control 5. Mitral regurgitation - mod-severe contributing to severity of HF 6. possible ASD with L to R shunt 7. Sinus tachycardia 2/2 viral PNA and fever Pt in fluid overload, microfiltration during HD. Echo shows possible ASD, PALLAVI with bubble study to r/o shunt pending. SBP improved. VUS negative for thrombus. Further recs to follow. Subjective ROS Limited/Unobtainable: No Cardiovascular: Reports: no symptoms Respiratory: Reports: shortness of breath Gastrointestinal/Abdominal: Reports: no symptoms Genitourinary: Reports: no symptoms Subjective SOB today Objective Last 24 Hour Vital Signs Date Time Temp Pulse Resp B/P (MAP) Pulse Ox O2 Delivery O2 Flow Rate FiO2 10/31/20 12:00 97.6 73 18 129/72 (91) 98 10/31/20 09:00 Nasal Cannula 2.0 10/31/20 08:00 98.2 78 18 136/60 (85) 97 10/31/20 06:11 134/58 10/31/20 04:51 98.4 80 19 140/74 (96) 97 10/31/20 01:00 98.4 76 20 114/51 (72) 94 10/31/20 01:00 Nasal Cannula 2.0 10/30/20 22:33 106/86 10/30/20 21:00 82 114/45 10/30/20 21:00 Nasal Cannula 2.0 10/30/20 20:00 98.4 84 18 114/45 (68) 91 General Appearance: no apparent distress Neck: supple, no JVD Rhythm: NSR Cardiovascular: regular rhythm Respiratory/Chest: no respiratory distress, no accessory muscle use Neurologic: oriented x 3 Intake and Output 10/30/20 10/31/20 19:00 07:00 Intake Total 540 ml 60 ml Balance 540 ml 60 ml Intake Oral 540 ml 60 ml # Bowel Movements 1 1 Laboratory Tests Test 10/30/20 20:57 10/31/20 06:05 10/31/20 16:25 POC Whole Blood Glucose 268 MG/DL (74-106) H Pending Pending Microbiology Date/Time Source Procedure Growth Status 10/29/20 18:00 Nasopharynx Coronavirus COVID-19 PCR ([facility]) - Final Complete Pamela Chowdhury PA-C Oct 31, 2020 17:15
--- NOTE | 2020-10-31 18:47 | NUR ---
NURSE HAND-OFF: Important Events on Shift: dialysis Patient Status: stable Diet: renal diet Pending Orders: n/a Pending Results/Labs:n/a Pending MD notification:n/a Latest Vital Signs: Temperature 98.1 , Pulse 67 , B/P 131 /79 , Respiratory Rate 19 , O2 SAT 96 , Nasal Cannula, O2 Flow Rate 2.0 . Vital Sign Comment: stable Latest Ness Fall Score: 50 Fall Risk: High Risk Safety Measures: Call light Within Reach, Bed Alarm Zone 1, Side Rails Side Rails x2, Bed position Low and Locked. Fall Precautions: Yellow Socks Yellow Gown Door Sign Patient Fall Education Report given to . Addendum: 10/31/20 at 1923 by Kirby Thomas RN HAND-OFF: Report given to AFIA.
--- NOTE | 2020-10-31 19:30 | NUR ---
NURSE NOTES: Patient in bed, alert to name, calm, on nasal cannula @ 1 LPM. With ongoing hemodialysis, dialysis nurse at bedside. Instructed to use call light for assistance. Bed in lowest, lock engaged and alarm on. Will continue to monitor.
[2020-10-31 20:00] VITALS: BP 136/70
--- NOTE | 2020-10-31 22:30 | NUR ---
NURSE NOTES: Per hemodialysis nurse, 1 liter out after dialysis.
[2020-10-31] MEDS: Levemir Flexpen SUBQ SCH (22:58)
[2020-11-01] VITALS: BP 167/64
[2020-11-01 04:00] VITALS: BP 127/76
[2020-11-01] MEDS: HydrALAZINE 50mg tab ORAL SCH (05:59)
[2020-11-01] MEDS: NovoLOG Insulin Flexpen SUBQ SCH ×4 (06:00→21:01)
[2020-11-01 07:02] LABS: ALANINE AMINOTRANSFERASE 25 U/L (12-78); ALBUMIN 2.3 G/DL (3.4-5.0); ALBUMIN/GLOBULIN RATIO 0.5 (1.0-2.7); ALKALINE PHOSPHATASE 109 U/L (46-116); ANION GAP 7 mmol/L (5-15); ASPARTATE AMINO TRANSFERASE 44 U/L (15-37); BILIRUBIN,TOTAL 0.3 MG/DL (0.2-1.0); BLOOD UREA NITROGEN 43 mg/dL (7-18); CALCIUM 8.9 MG/DL (8.5-10.1); CARBON DIOXIDE 30 MMOL/L (21-32); CHLORIDE 101 MMOL/L (98-107); PHOSPHORUS 3.5 MG/DL (2.5-4.9); POTASSIUM 4.4 MMOL/L (3.5-5.1); SODIUM 138 MMOL/L (136-145)
[2020-11-01 07:10] LABS: BASOPHILS % (AUTO) 0.3 % (0.0-2.0); EOSINOPHILS % (AUTO) 0.1 % (0.0-3.0); HEMATOCRIT 33.6 % (37.0-47.0); LYMPHOCYTES % (AUTO) 10.3 % (20.0-45.0); MEAN CORPUSCULAR VOLUME 94 FL (80-99); MONOCYTES % (AUTO) 9.2 % (1.0-10.0); NEUTROPHILS % (AUTO) 80.1 % (45.0-75.0); PLATELET COUNT 202 K/UL (150-450); RED BLOOD COUNT 3.56 M/UL (4.20-5.40)
[2020-11-01 08:00] VITALS: BP 153/64
--- NOTE | 2020-11-01 08:01 | NUR ---
HAND-OFF: Report given to Judy.
[2020-11-01] MEDS: Megace 400mg/10ml Susp ORAL SCH (08:37)
[2020-11-01] MEDS: Citalopram Hydrobromide 10mg Tab ORAL SCH (08:37)
[2020-11-01] MEDS: Docusate 100mg cap ORAL SCH ×2 (08:37→17:24)
[2020-11-01] MEDS: dexAMETHasone 10mg/ml Inj IV SCH (09:48)
--- NOTE | 2020-11-01 10:18 | Nephrology Progress Note ---
Assessment/Plan Problem List: (1) End stage renal disease on dialysis (2) C. difficile colitis (3) Transient hypotension (4) Diastolic CHF, chronic Assessment 75-year-old female presents with respiratory distress and COVID-19 infection Patient has end-stage renal disease and last dialyzed 4 days ago Patient presents with high potassium History of C. difficile colitis History of diabetes mellitus History of hypertension, presents with transient hypotension History of cardiomyopathy and diastolic CHF Plan November 01: Dialyzed yesterday. Labs reviewed. Medication list reviewed. Blood pressure medication adjusted. Hemodialysis tomorrow. October 31: Due for dialysis today. No labs drawn today. Continue per consultants. Will check can panel tomorrow. Medication list reviewed. Blood pressure stable. October 30: Last dialyzed October 29. Due for dialysis October 31. Continue per consultants. October 29: Patient dialyzed last evening of October 27. Serum creatinine and electrolyte much improved Continue per current treatment plan Per orders Next dialysis today October 29 Check labs in a.m. Subjective ROS Limited/Unobtainable: No Constitutional: Reports: malaise Objective Objective Last 24 Hour Vital Signs Date Time Temp Pulse Resp B/P (MAP) Pulse Ox O2 Delivery O2 Flow Rate FiO2 11/01/20 08:38 75 153/64 11/01/20 08:37 75 153/64 11/01/20 08:00 98.2 75 18 153/64 (93) 99 11/01/20 04:00 98.5 71 18 127/76 (93) 100 11/01/20 00:00 99.0 71 17 167/64 (98) 99 10/31/20 22:47 167/64 10/31/20 22:45 71 167/64 10/31/20 21:00 Nasal Cannula 2.0 10/31/20 20:00 97.6 78 18 136/70 (92) 99 10/31/20 16:00 98.1 67 19 131/79 (96) 96 10/31/20 12:00 97.6 73 18 129/72 (91) 98 Intake and Output 10/31/20 11/01/20 19:00 07:00 Intake Total 100 ml Output Total 1000 ml Balance 100 ml -1000 ml Intake Oral 100 ml Hemodialysis UF 1000 ml # Bowel Movements 1 1 Current Medications Medications (Trade) Dose Ordered Sig/Yeimi Route PRN Reason Start Time Stop Time Status Last Admin Dose Admin Acetaminophen (Tylenol) 650 mg Q4H PRN ORAL Temp >100.5 10/27/20 14:15 11/26/20 14:14 Carvedilol (Coreg) 3.125 mg EVERY 12 HOURS ORAL 10/30/20 21:00 11/29/20 20:59 11/01/20 08:38 Citalopram Hydrobromide (CeleXA) 20 mg DAILY ORAL 10/29/20 09:00 11/28/20 08:59 11/01/20 08:37 Dexamethasone Sodium Phosphate (Decadron 10mg/ ml Inj) 6 mg DAILY IV 10/28/20 09:00 11/06/20 09:01 11/01/20 09:48 Dextrose (Dextrose 50%) 25 ml Q30M PRN IV Hypoglycemia 10/28/20 20:45 01/26/21 20:44 Dextrose (Dextrose 50%) 50 ml Q30M PRN IV Hypoglycemia 10/28/20 20:45 01/26/21 20:44 Docusate Sodium (Colace) 100 mg TWICE A DAY ORAL 10/28/20 18:00 11/27/20 17:59 11/01/20 08:37 Haloperidol Lactate (Haldol) 5 mg Q6H PRN IM Agitation 10/28/20 15:45 12/12/20 15:44 Hydralazine HCl (Apresoline) 50 mg Q8HR ORAL 10/29/20 14:00 01/27/21 13:59 10/31/20 22:47 Insulin Aspart (NovoLOG) BEFORE MEALS AND HS SUBQ 10/28/20 21:00 01/26/21 20:59 10/31/20 22:57 Insulin Detemir (Levemir) 10 units Q24H SUBQ 10/29/20 20:00 01/27/21 19:59 10/31/20 22:58 Megestrol Acetate (Megace) 400 mg DAILY ORAL 10/28/20 09:00 01/26/21 08:59 11/01/20 08:37 Nifedipine (Procardia XL) 60 mg DAILY ORAL 10/31/20 09:00 11/30/20 08:59 11/01/20 08:37 Pantoprazole (Protonix) 40 mg EVERY 12 HOURS ORAL 10/28/20 21:00 11/27/20 20:59 11/01/20 08:38 Sevelamer Carbonate (Renvela) 800 mg THREE TIMES A DAY ORAL 10/28/20 13:00 01/26/21 12:59 11/01/20 08:38 Laboratory Tests 10/31/20 16:25: POC Whole Blood Glucose [Pending] 11/01/20 04:40: White Blood Count 8.0, Red Blood Count 3.56L, Hemoglobin 11.0L, Hematocrit 33.6L , Mean Corpuscular Volume 94, Mean Corpuscular Hemoglobin 30.9, Mean Corpuscular Hemoglobin Concent 32.8, Red Cell Distribution Width 19.0H, Platelet Count 202, Mean Platelet Volume 6.7, Neutrophils (%) (Auto) 80.1H, Lymphocytes (%) (Auto) 10.3L, Monocytes (%) (Auto) 9.2, Eosinophils (%) (Auto) 0.1, Basophils (%) (Auto) 0.3, Sodium Level 138, Potassium Level 4.4, Chloride Level 101, Carbon Dioxide Level 30, Anion Gap 7, Blood Urea Nitrogen 43H, Creatinine 4.0H, Estimat Glomerular Filtration Rate 10.9, Glucose Level 138H, Calcium Level 8.9, Phosphorus Level 3.5, Magnesium Level 1.8, Total Bilirubin 0.3, Aspartate Amino Transf (AST/SGOT) 44H, Alanine Aminotransferase (ALT/SGPT) 25, Alkaline Phosphatase 109, C-Reactive Protein, Quantitative 1.8H, Pro-B-Type Natriuretic Peptide > 42201S, Total Protein 7.4, Albumin 2.3L, Globulin 5.1, Albumin/Globulin Ratio 0.5L Height (Feet): 5 Height (Inches): 1.00 Weight (Pounds): 92 General Appearance: no apparent distress, lethargic Cardiovascular: normal rate Respiratory/Chest: decreased breath sounds Abdomen: distended Chris Puckett MD Nov 01, 2020 10:18
--- NOTE | 2020-11-01 11:40 | Infectious Diseases Prog Note ---
Assessment/Plan Assessment/Plan antibiotics : none A 1. COVID-19 pneumonia on 2 L oxygen with O2 saturation of 98 %. s/p ivermectin 2. Renal failure, on dialysis. 3. Congestive heart failure. 4. Right eye conjunctivitis 5. hypertension P 1. continue decadron day 6 2. continue isolation Subjective Constitutional: Denies: fever, chills Respiratory: Reports: shortness of breath - decreased, dry cough - decreased Gastrointestinal/Abdominal: Denies: vomiting Musculoskeletal: Denies: pain Allergies: Coded Allergies: No Known Allergies (Unverified , 09/23/20) Objective Last 24 Hour Vital Signs Date Time Temp Pulse Resp B/P (MAP) Pulse Ox O2 Delivery O2 Flow Rate FiO2 11/01/20 08:38 75 153/64 11/01/20 08:37 75 153/64 11/01/20 08:00 98.2 75 18 153/64 (93) 99 11/01/20 04:00 98.5 71 18 127/76 (93) 100 11/01/20 00:00 99.0 71 17 167/64 (98) 99 10/31/20 22:47 167/64 10/31/20 22:45 71 167/64 10/31/20 21:00 Nasal Cannula 2.0 10/31/20 20:00 97.6 78 18 136/70 (92) 99 10/31/20 16:00 98.1 67 19 131/79 (96) 96 10/31/20 12:00 97.6 73 18 129/72 (91) 98 Height (Feet): 5 Height (Inches): 1.00 Weight (Pounds): 92 Microbiology Date/Time Source Procedure Growth Status 10/29/20 18:00 Nasopharynx Coronavirus COVID-19 PCR ([facility]) - Final Complete Laboratory Tests Test 10/31/20 16:25 11/01/20 04:40 POC Whole Blood Glucose Pending White Blood Count 8.0 K/UL (4.8-10.8) Red Blood Count 3.56 M/UL (4.20-5.40) L Hemoglobin 11.0 G/DL (12.0-16.0) L Hematocrit 33.6 % (37.0-47.0) L Mean Corpuscular Volume 94 FL (80-99) Mean Corpuscular Hemoglobin 30.9 PG (27.0-31.0) Mean Corpuscular Hemoglobin Concent 32.8 G/DL (32.0-36.0) Red Cell Distribution Width 19.0 % (11.6-14.8) H Platelet Count 202 K/UL (150-450) Mean Platelet Volume 6.7 FL (6.5-10.1) Neutrophils (%) (Auto) 80.1 % (45.0-75.0) H Lymphocytes (%) (Auto) 10.3 % (20.0-45.0) L Monocytes (%) (Auto) 9.2 % (1.0-10.0) Eosinophils (%) (Auto) 0.1 % (0.0-3.0) Basophils (%) (Auto) 0.3 % (0.0-2.0) Sodium Level 138 MMOL/L (136-145) Potassium Level 4.4 MMOL/L (3.5-5.1) Chloride Level 101 MMOL/L (98-107) Carbon Dioxide Level 30 MMOL/L (21-32) Anion Gap 7 mmol/L (5-15) Blood Urea Nitrogen 43 mg/dL (7-18) H Creatinine 4.0 MG/DL (0.55-1.30) H Estimat Glomerular Filtration Rate 10.9 mL/min (>60) Glucose Level 138 MG/DL (74-106) H Calcium Level 8.9 MG/DL (8.5-10.1) Phosphorus Level 3.5 MG/DL (2.5-4.9) Magnesium Level 1.8 MG/DL (1.8-2.4) Total Bilirubin 0.3 MG/DL (0.2-1.0) Aspartate Amino Transf (AST/SGOT) 44 U/L (15-37) H Alanine Aminotransferase (ALT/SGPT) 25 U/L (12-78) Alkaline Phosphatase 109 U/L (46-116) C-Reactive Protein, Quantitative 1.8 mg/dL (0.00-0.90) H Pro-B-Type Natriuretic Peptide > 31133 pg/mL (0-125) H Total Protein 7.4 G/DL (6.4-8.2) Albumin 2.3 G/DL (3.4-5.0) L Globulin 5.1 g/dL Albumin/Globulin Ratio 0.5 (1.0-2.7) L Current Medications Medications (Trade) Dose Ordered Sig/Yeimi Route PRN Reason Start Time Stop Time Status Last Admin Dose Admin Acetaminophen (Tylenol) 650 mg Q4H PRN ORAL Temp >100.5 10/27/20 14:15 11/26/20 14:14 Carvedilol (Coreg) 6.25 mg EVERY 12 HOURS ORAL 11/01/20 21:00 11/29/20 20:59 Citalopram Hydrobromide (CeleXA) 20 mg DAILY ORAL 10/29/20 09:00 11/28/20 08:59 11/01/20 08:37 Dexamethasone Sodium Phosphate (Decadron 10mg/ ml Inj) 6 mg DAILY IV 10/28/20 09:00 11/06/20 09:01 11/01/20 09:48 Dextrose (Dextrose 50%) 25 ml Q30M PRN IV Hypoglycemia 10/28/20 20:45 01/26/21 20:44 Dextrose (Dextrose 50%) 50 ml Q30M PRN IV Hypoglycemia 10/28/20 20:45 01/26/21 20:44 Docusate Sodium (Colace) 100 mg TWICE A DAY ORAL 10/28/20 18:00 11/27/20 17:59 11/01/20 08:37 Haloperidol Lactate (Haldol) 5 mg Q6H PRN IM Agitation 10/28/20 15:45 12/12/20 15:44 Hydralazine HCl (Apresoline) 75 mg Q8HR ORAL 11/01/20 14:00 01/27/21 13:59 Insulin Aspart (NovoLOG) BEFORE MEALS AND HS SUBQ 10/28/20 21:00 01/26/21 20:59 10/31/20 22:57 Insulin Detemir (Levemir) 10 units Q24H SUBQ 10/29/20 20:00 01/27/21 19:59 10/31/20 22:58 Megestrol Acetate (Megace) 400 mg DAILY ORAL 10/28/20 09:00 01/26/21 08:59 11/01/20 08:37 Nifedipine (Procardia XL) 60 mg DAILY ORAL 10/31/20 09:00 11/30/20 08:59 11/01/20 08:37 Pantoprazole (Protonix) 40 mg EVERY 12 HOURS ORAL 10/28/20 21:00 11/27/20 20:59 11/01/20 08:38 Sevelamer Carbonate (Renvela) 800 mg THREE TIMES A DAY ORAL 10/28/20 13:00 01/26/21 12:59 11/01/20 08:38 Erika Stiles MD Nov 01, 2020 11:40
--- NOTE | 2020-11-01 11:44 | Pulmonology Progress Note ---
Subjective ROS Limited/Unobtainable: No Interval Events: None new Constitutional: Denies: fever, chills Respiratory: Reports: no symptoms Cardiovascular: Reports: no symptoms Gastrointestinal/Abdominal: Denies: vomiting Musculoskeletal: Denies: pain Allergies: Coded Allergies: No Known Allergies (Unverified , 09/23/20) Objective Last 24 Hour Vital Signs Date Time Temp Pulse Resp B/P (MAP) Pulse Ox O2 Delivery O2 Flow Rate FiO2 11/01/20 08:38 75 153/64 11/01/20 08:37 75 153/64 11/01/20 08:00 98.2 75 18 153/64 (93) 99 11/01/20 04:00 98.5 71 18 127/76 (93) 100 11/01/20 00:00 99.0 71 17 167/64 (98) 99 10/31/20 22:47 167/64 10/31/20 22:45 71 167/64 10/31/20 21:00 Nasal Cannula 2.0 10/31/20 20:00 97.6 78 18 136/70 (92) 99 10/31/20 16:00 98.1 67 19 131/79 (96) 96 10/31/20 12:00 97.6 73 18 129/72 (91) 98 Intake and Output 10/31/20 11/01/20 19:00 07:00 Intake Total 100 ml Output Total 1000 ml Balance 100 ml -1000 ml Intake Oral 100 ml Hemodialysis UF 1000 ml # Bowel Movements 1 1 Objective 11/01/2020 saturating well on 1 lpm NC 10/31/2020 patient alert; saturating well on 1 lpm NC 10/30/2020 pt asleep; saturating well on low flow oxygen 10/29/2020 pt asleep in bed; saturating well on low flow oxygen General Appearance: cachetic HEENT: normocephalic, atraumatic Respiratory: chest wall non-tender, rhonchi - bilaterally, other - dialysis catheter Cardiovascular: normal rate, regular rhythm Abdomen: soft, non tender Microbiology Date/Time Source Procedure Growth Status 10/29/20 18:00 Nasopharynx Coronavirus COVID-19 PCR ([facility]) - Final Complete Laboratory Tests 10/31/20 16:25: POC Whole Blood Glucose [Pending] 11/01/20 04:40: White Blood Count 8.0, Red Blood Count 3.56L, Hemoglobin 11.0L, Hematocrit 33.6L , Mean Corpuscular Volume 94, Mean Corpuscular Hemoglobin 30.9, Mean Corpuscular Hemoglobin Concent 32.8, Red Cell Distribution Width 19.0H, Platelet Count 202, Mean Platelet Volume 6.7, Neutrophils (%) (Auto) 80.1H, Lymphocytes (%) (Auto) 10.3L, Monocytes (%) (Auto) 9.2, Eosinophils (%) (Auto) 0.1, Basophils (%) (Auto) 0.3, Sodium Level 138, Potassium Level 4.4, Chloride Level 101, Carbon Dioxide Level 30, Anion Gap 7, Blood Urea Nitrogen 43H, Creatinine 4.0H, Estimat Glomerular Filtration Rate 10.9, Glucose Level 138H, Calcium Level 8.9, Phosphorus Level 3.5, Magnesium Level 1.8, Total Bilirubin 0.3, Aspartate Amino Transf (AST/SGOT) 44H, Alanine Aminotransferase (ALT/SGPT) 25, Alkaline Phosphatase 109, C-Reactive Protein, Quantitative 1.8H, Pro-B-Type Natriuretic Peptide > 10869R, Total Protein 7.4, Albumin 2.3L, Globulin 5.1, Albumin/Globulin Ratio 0.5L Current Medications Medications (Trade) Dose Ordered Sig/Yeimi Route PRN Reason Start Time Stop Time Status Last Admin Dose Admin Acetaminophen (Tylenol) 650 mg Q4H PRN ORAL Temp >100.5 10/27/20 14:15 11/26/20 14:14 Carvedilol (Coreg) 6.25 mg EVERY 12 HOURS ORAL 11/01/20 21:00 11/29/20 20:59 Citalopram Hydrobromide (CeleXA) 20 mg DAILY ORAL 10/29/20 09:00 11/28/20 08:59 11/01/20 08:37 Dexamethasone Sodium Phosphate (Decadron 10mg/ ml Inj) 6 mg DAILY IV 10/28/20 09:00 11/06/20 09:01 11/01/20 09:48 Dextrose (Dextrose 50%) 25 ml Q30M PRN IV Hypoglycemia 10/28/20 20:45 01/26/21 20:44 Dextrose (Dextrose 50%) 50 ml Q30M PRN IV Hypoglycemia 10/28/20 20:45 01/26/21 20:44 Docusate Sodium (Colace) 100 mg TWICE A DAY ORAL 10/28/20 18:00 11/27/20 17:59 11/01/20 08:37 Haloperidol Lactate (Haldol) 5 mg Q6H PRN IM Agitation 10/28/20 15:45 12/12/20 15:44 Hydralazine HCl (Apresoline) 75 mg Q8HR ORAL 11/01/20 14:00 01/27/21 13:59 Insulin Aspart (NovoLOG) BEFORE MEALS AND HS SUBQ 10/28/20 21:00 01/26/21 20:59 10/31/20 22:57 Insulin Detemir (Levemir) 10 units Q24H SUBQ 10/29/20 20:00 01/27/21 19:59 10/31/20 22:58 Megestrol Acetate (Megace) 400 mg DAILY ORAL 10/28/20 09:00 01/26/21 08:59 11/01/20 08:37 Nifedipine (Procardia XL) 60 mg DAILY ORAL 10/31/20 09:00 11/30/20 08:59 11/01/20 08:37 Pantoprazole (Protonix) 40 mg EVERY 12 HOURS ORAL 10/28/20 21:00 11/27/20 20:59 11/01/20 08:38 Sevelamer Carbonate (Renvela) 800 mg THREE TIMES A DAY ORAL 10/28/20 13:00 01/26/21 12:59 11/01/20 08:38 Assessment/Plan Assessment/Plan 1. COVID-19 pneumonia. - Continue isolation. - continue low flow oxygen; currently saturating 96% on 1 lpm NC - CXR 10/27/2020 shows multifocal infiltrate. - Continue Decadron - Discontinue ceftriaxone and azithromycin. - Repeat COVID-19 test 10/29/2020 positive 2. Renal failure, on dialysis. 3. Congestive heart failure. - BNP >35,000 - 2D echo EF 35-40% - management per cardio 4. Right eye conjunctivitis. 5. DVT ppx - D-dimer 3.08, CRP 16.1 -> 4.0 - 10/29/2020 venous ultrasound unremarkable - On SCD We will follow carefully The care of this patient was discussed with my supervising physician Time spent for this encounter was approximately 31 minutes Zbigniew Serrano Nov 01, 2020 11:44
[2020-11-01 11:49] VITALS: BP 94/47
--- NOTE | 2020-11-01 12:16 | NUR ---
RD ASSESSMENT & RECOMMENDATIONS SEE CARE ACTIVITY FOR COMPLETE ASSESSMENT DAILY ESTIMATED NEEDS: Needs based on ESRD on HD 42kg 30-40 kcals/kg 8062-3207 total kcals 1.25-1.8 g protein/kg 53-76 g total protein Fluid per MD, on HD NUTRITION DIAGNOSIS: Increased kcal and pro needs r/t renal dysfunction as evidenced by pt w/ ESRD on HD. CURRENT DIET: Renal PO DIET RECOMMENDATIONS: Maintain renal diet/ texture per SUTURE GAUGER ADDITIONAL RECOMMENDATIONS: 1) Daily wts, calibrated bed scale 2) Rec SUTURE GAUGER eval for appropriate texture 3) Add NEPRO TID w/ meals (425 kcal/ 19g pro per pack) 4) Monitor for hypoglycemia w/ variable PO 5) Nephrovite x 1 . .
--- NOTE | 2020-11-01 12:20 | NUR ---
RD ASSESSMENT & RECOMMENDATIONS SEE CARE ACTIVITY FOR COMPLETE ASSESSMENT DAILY ESTIMATED NEEDS: Needs based on ESRD on HD 42kg 30-40 kcals/kg 7658-9234 total kcals 1.25-1.8 g protein/kg 53-76 g total protein Fluid per MD, on HD mL/kg total fluid mLs NUTRITION DIAGNOSIS: Increased kcal and pro needs r/t renal dysfunction, wound healing as evidenced by pt w/ ESRD on HD, admitted w/ wounds, including sacral DTPI. CURRENT DIET: Renal PO DIET RECOMMENDATIONS: Maintain renal diet/ texture per GALVANIZER ZINC ADDITIONAL RECOMMENDATIONS: 1) Daily wts, calibrated bed scale 2) Rec GALVANIZER ZINC eval for appropriate texture 3) Add NEPRO TID w/ meals (425 kcal/ 19g pro per pack) 4) Monitor for hypoglycemia w/ variable PO 5) Wound healing: Nephrovite x 1, ZnSO4 220mg QD x 10 days Abdirahman BID as tolerated .
[2020-11-01] MEDS: HydrALAZINE 25mg tab ORAL SCH ×2 (13:35→22:00)
[2020-11-01 15:52] VITALS: BP 105/51
--- NOTE | 2020-11-01 16:18 | NUR ---
CASE MANAGEMENT:REVIEW SI;COVID PNA. ACUTE CHF. ESRD. REPEAT COVID 10/29/20 ~ DETECTED 99.0 75 18 94/47 96% 2L NC BUN 43 CR 4.3 ASST 44 CRP 1.8 BNP >20782 ALB 2.3 IS;COREG PO BID PROTONIX PO Q12 MEGACE PO QD DECADRON IV QD MED SURG STATUS DCP;FROM [facility]
--- NOTE | 2020-11-01 16:37 | General Progress Note ---
Subjective Allergies: Coded Allergies: No Known Allergies (Unverified , 09/23/20) Subjective sitting in bed awake eating better blood sugar are improving venous duplex of leg negative Objective Last 24 Hour Vital Signs Date Time Temp Pulse Resp B/P (MAP) Pulse Ox O2 Delivery O2 Flow Rate FiO2 11/01/20 15:52 98.1 73 18 105/51 (69) 96 11/01/20 13:35 100/64 11/01/20 11:49 97.9 71 18 94/47 (63) 100 11/01/20 09:00 Nasal Cannula 2.0 11/01/20 08:38 75 153/64 11/01/20 08:37 75 153/64 11/01/20 08:00 98.2 75 18 153/64 (93) 99 11/01/20 04:00 98.5 71 18 127/76 (93) 100 11/01/20 00:00 99.0 71 17 167/64 (98) 99 10/31/20 22:47 167/64 10/31/20 22:45 71 167/64 10/31/20 21:00 Nasal Cannula 2.0 10/31/20 20:00 97.6 78 18 136/70 (92) 99 Intake and Output 10/31/20 11/01/20 19:00 07:00 Intake Total 100 ml Output Total 1000 ml Balance 100 ml -1000 ml Intake Oral 100 ml Hemodialysis UF 1000 ml # Bowel Movements 1 1 Laboratory Tests 11/01/20 04:40: White Blood Count 8.0, Red Blood Count 3.56L, Hemoglobin 11.0L, Hematocrit 33.6L , Mean Corpuscular Volume 94, Mean Corpuscular Hemoglobin 30.9, Mean Corpuscular Hemoglobin Concent 32.8, Red Cell Distribution Width 19.0H, Platelet Count 202, Mean Platelet Volume 6.7, Neutrophils (%) (Auto) 80.1H, Lymphocytes (%) (Auto) 10.3L, Monocytes (%) (Auto) 9.2, Eosinophils (%) (Auto) 0.1, Basophils (%) (Auto) 0.3, Sodium Level 138, Potassium Level 4.4, Chloride Level 101, Carbon Dioxide Level 30, Anion Gap 7, Blood Urea Nitrogen 43H, Creatinine 4.0H, Estimat Glomerular Filtration Rate 10.9, Glucose Level 138H, Calcium Level 8.9, Phosphorus Level 3.5, Magnesium Level 1.8, Total Bilirubin 0.3, Aspartate Amino Transf (AST/SGOT) 44H, Alanine Aminotransferase (ALT/SGPT) 25, Alkaline Phosphatase 109, C-Reactive Protein, Quantitative 1.8H, Pro-B-Type Natriuretic Peptide > 98670R, Total Protein 7.4, Albumin 2.3L, Globulin 5.1, Albumin/Globulin Ratio 0.5L 11/01/20 11:53: POC Whole Blood Glucose [Pending] Height (Feet): 5 Height (Inches): 1.00 Weight (Pounds): 92 General Appearance: alert EENT: PERRL/EOMI Neck: supple Cardiovascular: regular rhythm Respiratory/Chest: crackles/rales Abdomen: non tender, soft Extremities: non-tender Assessment/Plan Status: doing well Assessment/Plan: 1 sob 2 covid pna cont isolation 3 chf diastolic acute 4 esrd on hd 5 failure of thrive 6 dementia 7 dm poory controlled due to steroids add levamier and high dose short insulin pt/ot eval dw pt pt is very weak iv abx hd cardio and pulmonary consult Cesar Swanson MD Nov 01, 2020 16:37
--- NOTE | 2020-11-01 16:58 | Consultation ---
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 On admission identified to have decubitus ulcers requiring care and management. Patient presented on admission with these ulcers and care has been provided and initiated. Patient with low BMI 17 hypoalbuminemia malnutrition failure to thrive. Patient seen, patient by, chart reviewed surgery called to evaluate Allergies: Coded Allergies: No Known Allergies (Unverified , 09/23/20) COVID-19 Screening Contact w/high risk pt: Yes Experienced COVID-19 symptoms?: Yes Coronavirus symptoms experienc: Fatigue Medication History Scheduled Amino Acids/Protein Hydrolys (Pro-Stat Liquid), 30 ML ORAL TWICE A DAY, (Reported) Atorvastatin Calcium* (Atorvastatin Calcium*), 40 MG ORAL DAILY, (Reported) Cinacalcet* (Sensipar*), 30 MG ORAL DAILY, (Reported) Citalopram Hydrobromide* (Citalopram Hbr*), 20 MG ORAL DAILY, (Reported) Gabapentin* (Gabapentin*), 100 MG ORAL THREE TIMES A DAY, (Reported) Insulin Glargine (Lantus), 8 UNITS SUBQ Q12HR, (Reported) Lactobacillus Acidophilus (Acidophilus), 1 EACH PO DAILY, (Reported) Nut.tx.impaired Renal Fxn,Soy (Nepro Carb Steady), 237 ML PO BID, (Reported) Pantoprazole Sodium (Protonix), 40 MG PO DAILY, (Reported) Sevelamer Carbonate* (Renvela*), 2,400 MG ORAL THREE TIMES A DAY, (Reported) Vitamin B Cmplx/Vit C/Folic AC (Nephro-Kat Tablet), 1 TAB ORAL DAILY, (Reported) Scheduled PRN Ondansetron* (Zofran*), 4 MG ORAL Q6H PRN for Nausea & Vomiting, (Reported) Discontinued Medications Ascorbic Acid* (Ascorbic Acid*), 250 MG ORAL BID, (Reported) Discontinued Reason: Therapy completed Insulin Glargine (Lantus), 0 SUBQ BEDTIME, (Reported) Discontinued Reason: Therapy completed Pantoprazole* (Pantoprazole*), 40 MG ORAL DAILY, (Reported) Discontinued Reason: Therapy completed Patient History Limited by: medical condition History Provided By: Medical Record, PMD Healthcare decision maker Resuscitation status Advanced Directive on File Past Medical/Surgical History Past Medical/Surgical History: (1) Altered mental status (2) Diarrhea (3) ESRD (end stage renal disease) (4) Pneumonia (5) Dyspnea (6) Respiratory distress (7) Pneumonia due to COVID-19 virus (8) Hypoglycemia (9) End stage renal disease on dialysis (10) Transient hypotension (11) Diastolic CHF, chronic (12) C. difficile colitis Review of Systems Review of Symptoms General ROS: no weight loss or fever Psychological ROS: no depression or mood changes, no memory loss Ophthalmic ROS: no visual changes or eye irritation ENT ROS: no nasal congestion, hearing loss, dizziness Allergy and Immunology ROS: no allergic symptoms or urticaria Hematological and Lymphatic ROS: no swollen glands, unusual bleeding or bruising Endocrine ROS: no polyuria, polydipsia, weight changes, temperature intolerance Respiratory ROS: no cough, shortness of breath, or wheezing Cardiovascular ROS: no chest pain or dyspnea on exertion Gastrointestinal ROS: denies abdominal pain, bright red blood in stool. Musculoskeletal ROS: no myalgias or arthralgias Neurological ROS: no TIA or stroke symptoms Dermatological ROS: no new or changing skin lesions, rashes or pruritis limited given medical condition Physical Exam Physical Exam General appearance: no distress, appears stated age Head: Normocephalic, without obvious abnormality, atraumatic Eyes: conjunctivae/corneas clear. PERRL, EOM's intact. Fundi benign Throat: Lips, mucosa, and tongue normal. Teeth and gums normal Neck: supple, symmetrical, trachea midline, no adenopathy, thyroid: not enlarged, symmetric, no tenderness/mass/nodules, no carotid bruit and no JVD Lungs: clear to auscultation bilaterally Heart: regular rate and rhythm, S1, S2 normal, no murmur, click, rub or gallop Abdomen: soft, non-tender. Bowel sounds normal. No masses, no organomegaly Extremities: extremities normal, atraumatic, no cyanosis or edema Pulses: 2+ and symmetric Skin: Skin see below Neurologic: Grossly normal Last 24 Hour Vital Signs Date Time Temp Pulse Resp B/P (MAP) Pulse Ox O2 Delivery O2 Flow Rate FiO2 11/01/20 15:52 98.1 73 18 105/51 (69) 96 11/01/20 13:35 100/64 11/01/20 11:49 97.9 71 18 94/47 (63) 100 11/01/20 09:00 Nasal Cannula 2.0 11/01/20 08:38 75 153/64 11/01/20 08:37 75 153/64 11/01/20 08:00 98.2 75 18 153/64 (93) 99 11/01/20 04:00 98.5 71 18 127/76 (93) 100 11/01/20 00:00 99.0 71 17 167/64 (98) 99 10/31/20 22:47 167/64 10/31/20 22:45 71 167/64 10/31/20 21:00 Nasal Cannula 2.0 10/31/20 20:00 97.6 78 18 136/70 (92) 99 Intake and Output 10/31/20 11/01/20 19:00 07:00 Intake Total 100 ml Output Total 1000 ml Balance 100 ml -1000 ml Intake Oral 100 ml Hemodialysis UF 1000 ml # Bowel Movements 1 1 Laboratory Tests Test 11/01/20 04:40 11/01/20 11:53 White Blood Count 8.0 K/UL (4.8-10.8) Red Blood Count 3.56 M/UL (4.20-5.40) L Hemoglobin 11.0 G/DL (12.0-16.0) L Hematocrit 33.6 % (37.0-47.0) L Mean Corpuscular Volume 94 FL (80-99) Mean Corpuscular Hemoglobin 30.9 PG (27.0-31.0) Mean Corpuscular Hemoglobin Concent 32.8 G/DL (32.0-36.0) Red Cell Distribution Width 19.0 % (11.6-14.8) H Platelet Count 202 K/UL (150-450) Mean Platelet Volume 6.7 FL (6.5-10.1) Neutrophils (%) (Auto) 80.1 % (45.0-75.0) H Lymphocytes (%) (Auto) 10.3 % (20.0-45.0) L Monocytes (%) (Auto) 9.2 % (1.0-10.0) Eosinophils (%) (Auto) 0.1 % (0.0-3.0) Basophils (%) (Auto) 0.3 % (0.0-2.0) Sodium Level 138 MMOL/L (136-145) Potassium Level 4.4 MMOL/L (3.5-5.1) Chloride Level 101 MMOL/L (98-107) Carbon Dioxide Level 30 MMOL/L (21-32) Anion Gap 7 mmol/L (5-15) Blood Urea Nitrogen 43 mg/dL (7-18) H Creatinine 4.0 MG/DL (0.55-1.30) H Estimat Glomerular Filtration Rate 10.9 mL/min (>60) Glucose Level 138 MG/DL (74-106) H Calcium Level 8.9 MG/DL (8.5-10.1) Phosphorus Level 3.5 MG/DL (2.5-4.9) Magnesium Level 1.8 MG/DL (1.8-2.4) Total Bilirubin 0.3 MG/DL (0.2-1.0) Aspartate Amino Transf (AST/SGOT) 44 U/L (15-37) H Alanine Aminotransferase (ALT/SGPT) 25 U/L (12-78) Alkaline Phosphatase 109 U/L (46-116) C-Reactive Protein, Quantitative 1.8 mg/dL (0.00-0.90) H Pro-B-Type Natriuretic Peptide > 54672 pg/mL (0-125) H Total Protein 7.4 G/DL (6.4-8.2) Albumin 2.3 G/DL (3.4-5.0) L Globulin 5.1 g/dL Albumin/Globulin Ratio 0.5 (1.0-2.7) L POC Whole Blood Glucose Pending Height (Feet): 5 Height (Inches): 1.00 Weight (Pounds): 92 Medications Current Medications Medications (Trade) Dose Ordered Sig/Yeimi Route PRN Reason Start Time Stop Time Status Last Admin Dose Admin Acetaminophen (Tylenol) 650 mg Q4H PRN ORAL Temp >100.5 10/27/20 14:15 11/26/20 14:14 Carvedilol (Coreg) 6.25 mg EVERY 12 HOURS ORAL 11/01/20 21:00 11/29/20 20:59 Citalopram Hydrobromide (CeleXA) 20 mg DAILY ORAL 10/29/20 09:00 11/28/20 08:59 12/11/20 08:37 Dexamethasone Sodium Phosphate (Decadron 10mg/ ml Inj) 6 mg DAILY IV 10/28/20 09:00 11/06/20 09:01 11/01/20 09:48 Dextrose (Dextrose 50%) 25 ml Q30M PRN IV Hypoglycemia 10/28/20 20:45 01/26/21 20:44 Dextrose (Dextrose 50%) 50 ml Q30M PRN IV Hypoglycemia 10/28/20 20:45 01/26/21 20:44 Docusate Sodium (Colace) 100 mg TWICE A DAY ORAL 10/28/20 18:00 11/27/20 17:59 11/01/20 08:37 Haloperidol Lactate (Haldol) 5 mg Q6H PRN IM Agitation 10/28/20 15:45 12/12/20 15:44 Hydralazine HCl (Apresoline) 75 mg Q8HR ORAL 11/01/20 14:00 01/27/21 13:59 Insulin Aspart (NovoLOG) BEFORE MEALS AND HS SUBQ 10/28/20 21:00 01/26/21 20:59 11/01/20 16:50 Insulin Detemir (Levemir) 10 units Q24H SUBQ 10/29/20 20:00 01/27/21 19:59 10/31/20 22:58 Megestrol Acetate (Megace) 400 mg DAILY ORAL 10/28/20 09:00 01/26/21 08:59 11/01/20 08:37 Nifedipine (Procardia XL) 60 mg DAILY ORAL 10/31/20 09:00 11/30/20 08:59 11/01/20 08:37 Pantoprazole (Protonix) 40 mg EVERY 12 HOURS ORAL 10/28/20 21:00 11/27/20 20:59 11/01/20 08:38 Sevelamer Carbonate (Renvela) 800 mg THREE TIMES A DAY ORAL 10/28/20 13:00 01/26/21 12:59 11/01/20 13:34 Assessment/Plan Problem List: (1) Decubitus skin ulcer Assessment & Plan: Pt presented on admission with multiple Pressure Injuries. DTPI Sacrum(L)8cm x (W)8cm. Base of wound is purpuric with surrounding non- Blanchable erythema. Darker skin tone without erythema or induration periwound. Pt complained at site of DTPI when minimally palpated. Non-Blanchable erythema without induration R Ischium(L)7cm x (W)7.5cm. L Heel is boggy with non-Blanchable erythema. R heel is Boggy with non-blanchable erythema. Tx.Plan: Apply Moisture Barrier Paste to Sacrum. Cover with Optifoam drsg. Change every 3 days and prn.. Apply Moisture Barrier Paste to R and L Ischial tuberosities. Cover each Ischium with Optifoam drsgs. Change every 3 days and prn. Apply Cavilon Skin Barrier to R and L Heels and each Malleoli. Cover each site with Optifoam drsgs. Change every 7 days and prn. Cover Bony prominences as needed with Optifoam drsgs. Reposition at least every 2 hours or as tolerated. Off-load heels with Pillow. ICD Codes: L89.90 - Pressure ulcer of unspecified site, unspecified stage SNOMED: 890071770 (2) Dyspnea ICD Codes: R06.00 - Dyspnea, unspecified SNOMED: 360728723 (3) Respiratory distress ICD Codes: R06.03 - Acute respiratory distress SNOMED: 277233506 (4) Pneumonia due to COVID-19 virus Assessment & Plan: ++ on tx id and pulm input appreciated limited movement will need to be cautions to ensure not worsening decub ICD Codes: U07.1 - COVID-19; J12.89 - Other viral pneumonia SNOMED: 289281604347410549 (5) Hypoglycemia ICD Codes: E16.2 - Hypoglycemia, unspecified; J12.89 - Other viral pneumonia SNOMED: 858080914 (6) End stage renal disease on dialysis ICD Codes: N18.6 - End stage renal disease; Z99.2 - Dependence on renal dialysis SNOMED: 048992714 (7) Transient hypotension ICD Codes: I95.9 - Hypotension, unspecified; J12.89 - Other viral pneumonia SNOMED: 05965502588798 (8) Diastolic CHF, chronic ICD Codes: I50.32 - Chronic diastolic (congestive) heart failure SNOMED: 27288575, 510413994 (9) C. difficile colitis ICD Codes: A04.72 - Enterocolitis due to Clostridium difficile, not specified as recurrent SNOMED: 578507559 (10) Diarrhea Assessment & Plan: DAILY ESTIMATED NEEDS: Needs based on ESRD on HD 42kg 30-40 kcals/kg 8656-3047 total kcals 1.25-1.8 g protein/kg 53-76 g total protein Fluid per MD, on HD mL/kg total fluid mLs NUTRITION DIAGNOSIS: Increased kcal and pro needs r/t renal dysfunction, wound healing as evidenced by pt w/ ESRD on HD, admitted w/ wounds, including sacral DTPI. CURRENT DIET: Renal PO DIET RECOMMENDATIONS: Maintain renal diet/ texture per DRY FINISHER ADDITIONAL RECOMMENDATIONS: 1) Daily wts, calibrated bed scale 2) Rec DRY FINISHER eval for appropriate texture 3) Add NEPRO TID w/ meals (425 kcal/ 19g pro per pack) 4) Monitor for hypoglycemia w/ variable PO 5) Wound healing: Nephrovite x 1, ZnSO4 220mg QD x 10 days Abdirahman BID as tolerated ICD Codes: R19.7 - Diarrhea, unspecified SNOMED: 63889774 (11) ESRD (end stage renal disease) ICD Codes: N18.6 - End stage renal disease SNOMED: 76103554 (12) Altered mental status ICD Codes: R41.82 - Altered mental status, unspecified SNOMED: 568724966 (13) Pneumonia ICD Codes: J18.9 - Pneumonia, unspecified organism SNOMED: 545680069 [facility] Hospital declaration \ Lynsey Floresya Nov 01, 2020 16:58
--- NOTE | 2020-11-01 17:21 | Cardiology Progress Note ---
Assessment/Plan Status: stable Status Narrative 1. COVID-19 viral PNA 2. HFrEF, acute on chronic systolic on diastolic HF with EF 35-40% BNP severely elevated Fluid balance with HD Troponin 0.004 3. ESRD on HD Aneuric 4. HTN - needs better control 5. Mitral regurgitation - mod-severe contributing to severity of HF 6. possible ASD with L to R shunt 7. Sinus tachycardia 2/2 viral PNA and fever Pt in fluid overload, BNP still severely elevated, will have microfiltration during HD. Echo shows decreased LV function, possible ASD. VUS negative for thrombus. Continue medical therapy. Subjective ROS Limited/Unobtainable: No Cardiovascular: Reports: no symptoms Respiratory: Reports: shortness of breath Gastrointestinal/Abdominal: Reports: no symptoms Genitourinary: Reports: no symptoms Objective Last 24 Hour Vital Signs Date Time Temp Pulse Resp B/P (MAP) Pulse Ox O2 Delivery O2 Flow Rate FiO2 11/01/20 15:52 98.1 73 18 105/51 (69) 96 11/01/20 13:35 100/64 11/01/20 11:49 97.9 71 18 94/47 (63) 100 11/01/20 09:00 Nasal Cannula 2.0 11/01/20 08:38 75 153/64 11/01/20 08:37 75 153/64 11/01/20 08:00 98.2 75 18 153/64 (93) 99 11/01/20 04:00 98.5 71 18 127/76 (93) 100 11/01/20 00:00 99.0 71 17 167/64 (98) 99 10/31/20 22:47 167/64 10/31/20 22:45 71 167/64 10/31/20 21:00 Nasal Cannula 2.0 10/31/20 20:00 97.6 78 18 136/70 (92) 99 General Appearance: no apparent distress EENT: PERRL/EOMI Neck: no JVD Rhythm: NSR 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 II-XII grossly normal Intake and Output 10/31/20 11/01/20 19:00 07:00 Intake Total 100 ml Output Total 1000 ml Balance 100 ml -1000 ml Intake Oral 100 ml Hemodialysis UF 1000 ml # Bowel Movements 1 1 Laboratory Tests Test 11/01/20 04:40 11/01/20 11:53 White Blood Count 8.0 K/UL (4.8-10.8) Red Blood Count 3.56 M/UL (4.20-5.40) L Hemoglobin 11.0 G/DL (12.0-16.0) L Hematocrit 33.6 % (37.0-47.0) L Mean Corpuscular Volume 94 FL (80-99) Mean Corpuscular Hemoglobin 30.9 PG (27.0-31.0) Mean Corpuscular Hemoglobin Concent 32.8 G/DL (32.0-36.0) Red Cell Distribution Width 19.0 % (11.6-14.8) H Platelet Count 202 K/UL (150-450) Mean Platelet Volume 6.7 FL (6.5-10.1) Neutrophils (%) (Auto) 80.1 % (45.0-75.0) H Lymphocytes (%) (Auto) 10.3 % (20.0-45.0) L Monocytes (%) (Auto) 9.2 % (1.0-10.0) Eosinophils (%) (Auto) 0.1 % (0.0-3.0) Basophils (%) (Auto) 0.3 % (0.0-2.0) Sodium Level 138 MMOL/L (136-145) Potassium Level 4.4 MMOL/L (3.5-5.1) Chloride Level 101 MMOL/L (98-107) Carbon Dioxide Level 30 MMOL/L (21-32) Anion Gap 7 mmol/L (5-15) Blood Urea Nitrogen 43 mg/dL (7-18) H Creatinine 4.0 MG/DL (0.55-1.30) H Estimat Glomerular Filtration Rate 10.9 mL/min (>60) Glucose Level 138 MG/DL (74-106) H Calcium Level 8.9 MG/DL (8.5-10.1) Phosphorus Level 3.5 MG/DL (2.5-4.9) Magnesium Level 1.8 MG/DL (1.8-2.4) Total Bilirubin 0.3 MG/DL (0.2-1.0) Aspartate Amino Transf (AST/SGOT) 44 U/L (15-37) H Alanine Aminotransferase (ALT/SGPT) 25 U/L (12-78) Alkaline Phosphatase 109 U/L (46-116) C-Reactive Protein, Quantitative 1.8 mg/dL (0.00-0.90) H Pro-B-Type Natriuretic Peptide > 22056 pg/mL (0-125) H Total Protein 7.4 G/DL (6.4-8.2) Albumin 2.3 G/DL (3.4-5.0) L Globulin 5.1 g/dL Albumin/Globulin Ratio 0.5 (1.0-2.7) L POC Whole Blood Glucose Pending Microbiology Date/Time Source Procedure Growth Status 10/29/20 18:00 Nasopharynx Coronavirus COVID-19 PCR ([facility]) - Final Complete Pamela Chowdhury PA-C Nov 01, 2020 17:21
--- NOTE | 2020-11-01 19:00 | NUR ---
NURSE HAND-OFF: Important Events on Shift:[kept patient clean and comfortable; safety measures rendered] Patient Status: [stable] Diet: [renal ] Pending Orders: [none] Pending Results/Labs:[] Pending MD notification:[] Latest Vital Signs: Temperature 98.1 , Pulse 73 , B/P 105 /51 , Respiratory Rate 18 , O2 SAT 96 , Nasal Cannula, O2 Flow Rate 2.0 . Vital Sign Comment: [] Latest Ness Fall Score: 50 Fall Risk: High Risk Safety Measures: Call light Within Reach, Bed Alarm Zone 2, Side Rails Side Rails x3, Bed position Low and Locked. Fall Precautions: Yellow Socks Yellow Gown Door Sign Patient Fall Education Report given to [christelle].
[2020-11-01 20:00] VITALS: BP 137/59
--- NOTE | 2020-11-01 20:00 | NUR ---
NURSE NOTES: RECEIVED PATIENT LYING IN BED, AWAKE, ALERT/ORIENTED TO PERSON/PLACE, REALITY ORIENTATION PROVIDED. ABLE TO MAKE SIMPLE NEEDS KNOWN IN [place], DENIES PAIN. NO SIGNS AND SYMPTOMS OF ACUTE CARDIO RESPIRATORY DISTRESS/SHORTNESS OF BREATH, NO EDEMA NOTED. NOTED WITH PERMACATH TO LEFT UPPER CHEST WALL/HD/AV SHUNT LEFT UPPER ARM. ABDOMEN SOFT/NON DISTENDED, INCONTINENT OF BOWEL, CARE PROVIDED, REPOSITIONED FOR COMFORT/PRESSURE RELIEF, TOLERATED WELL. SIDE RAILS UP X3 FOR SAFETY, BED IN LOWEST POSITION FOR SAFETY, ENCOURAGED PATIENT TO UTILIZE CALL LIGHT FOR ASSISTANCE, VERBALIZED UNDERSTANDING. P200 MATTRESS PLACED ON BED VIA 2 NURSES. CONTINUE WITH CURRENT PLAN OF CARE. NAD.
--- NOTE | 2020-11-01 20:16 | Psychiatric Progress Note ---
Psychiatry Progress Note Psychiatry Progress Note Subjective the pt is the same Medications Current Medications Medications (Trade) Dose Ordered Sig/Yeimi Route PRN Reason Start Time Stop Time Status Last Admin Dose Admin Acetaminophen (Tylenol) 650 mg Q4H PRN ORAL Temp >100.5 10/27/20 14:15 11/26/20 14:14 Carvedilol (Coreg) 6.25 mg EVERY 12 HOURS ORAL 11/01/20 21:00 11/29/20 20:59 Citalopram Hydrobromide (CeleXA) 20 mg DAILY ORAL 10/29/20 09:00 11/28/20 08:59 11/01/20 08:37 Dexamethasone Sodium Phosphate (Decadron 10mg/ ml Inj) 6 mg DAILY IV 10/28/20 09:00 11/06/20 09:01 11/01/20 09:48 Dextrose (Dextrose 50%) 25 ml Q30M PRN IV Hypoglycemia 10/28/20 20:45 01/26/21 20:44 Dextrose (Dextrose 50%) 50 ml Q30M PRN IV Hypoglycemia 10/28/20 20:45 01/26/21 20:44 Docusate Sodium (Colace) 100 mg TWICE A DAY ORAL 10/28/20 18:00 11/27/20 17:59 11/01/20 17:24 Haloperidol Lactate (Haldol) 5 mg Q6H PRN IM Agitation 10/28/20 15:45 12/12/20 15:44 Hydralazine HCl (Apresoline) 75 mg Q8HR ORAL 11/01/20 14:00 01/27/21 13:59 Insulin Aspart (NovoLOG) BEFORE MEALS AND HS SUBQ 10/28/20 21:00 01/26/21 20:59 11/01/20 16:50 Insulin Detemir (Levemir) 10 units Q24H SUBQ 10/29/20 20:00 01/27/21 19:59 10/31/20 22:58 Megestrol Acetate (Megace) 400 mg DAILY ORAL 10/28/20 09:00 01/26/21 08:59 11/01/20 08:37 Nifedipine (Procardia XL) 30 mg DAILY ORAL 11/02/20 09:00 11/30/20 08:59 Pantoprazole (Protonix) 40 mg EVERY 12 HOURS ORAL 10/28/20 21:00 11/27/20 20:59 11/01/20 08:38 Sevelamer Carbonate (Renvela) 800 mg THREE TIMES A DAY ORAL 10/28/20 13:00 01/26/21 12:59 11/01/20 17:24 Zinc Sulfate (Zinc Sulfate) 220 mg DAILY ORAL 11/02/20 09:00 11/12/20 08:59 Neurological/Psychiatric: Reports: anxiety, depressed, emotional problems, numbness, weakness Allergies: Coded Allergies: No Known Allergies (Unverified , 09/23/20) Objective Data Height (Feet): 5 Height (Inches): 1.00 Weight (Pounds): 92 General Appearance: no apparent distress, alert Additional Comments: alert, oriented times self, place. Mood is agitated. Affect is flat. Thought process, there is a paucity of thought content. Thought content, no suicidal or homicidal ideation. Cognition is impaired. Insight and judgment is impaired. Assessment/Plan [place] I: ASSESSMENT: [place] I Dementia. Anxiety disorder. Rule out acute metabolic encephalopathy. [place] II Deferred. [place] III As above. [place] IV Low. [place] V 20. PLAN: 1. Celexa 20 mg. 2. Haldol IM p.r.n. for agitation. 3. Discussed with the nurse. Status: stable Status Narrative ASSESSMENT: [place] I Dementia. Anxiety disorder. Rule out acute metabolic encephalopathy. [place] II Deferred. [place] III As above. [place] IV Low. [place] V 20. PLAN: 1. Celexa 20 mg. 2. Haldol IM p.r.n. for agitation. 3. Discussed with the nurse. Assessment/Plan: ASSESSMENT: [place] I Dementia. Anxiety disorder. Rule out acute metabolic encephalopathy. [place] II Deferred. [place] III As above. [place] IV Low. [place] V 20. PLAN: 1. Celexa 20 mg. 2. Haldol IM p.r.n. for agitation. 3. Discussed with the nurse. Lona Tarango MD Nov 01, 2020 20:16
[2020-11-01] MEDS: Carvedilol 6.25mg Tab ORAL SCH (20:59)
[2020-11-01] MEDS: Levemir Flexpen SUBQ SCH (21:01)
[2020-11-02] VITALS: BP 138/69
--- NOTE | 2020-11-02 01:20 | NUR ---
NURSE NOTES: RESTING WELL, NO SIGNS OF DISTRESS.
[2020-11-02 04:00] VITALS: BP 144/75
[2020-11-02] MEDS: HydrALAZINE 25mg tab ORAL SCH ×3 (05:40→21:12)
[2020-11-02] MEDS: NovoLOG Insulin Flexpen SUBQ SCH ×4 (06:30→21:19)
--- NOTE | 2020-11-02 07:29 | NUR ---
NURSE NOTES: Received report from ROXANNE Yancey. Patient observed to be asleep currently on contact and droplet iso for (+) covid. Patient on 2L/ NC no s/sx of SOB/Distress, no s/sx of pain or discomfort. Patient with IV site located on RH gauge 22 asymptomatic, inplace and intact. Bed placed on lowest and locked, call light placed within reach and will continue to monitor for any changes in condition.
--- NOTE | 2020-11-02 07:37 | NUR ---
NURSE HAND-OFF: Important Events on Shift:[UNEVENTFUL NIGHT, RESTED WELL, BM X2- 110MG/DL 0600, NO COVERAGE] Patient Status: [STABLE,AFEBRILE] Diet: [RENAL, CRUSH MEDS WITH APPLESAUCE] Pending Orders: [HEMODIALYSIS] Pending Results/Labs:[N/A] Pending MD notification:[N/A] Latest Vital Signs: Temperature 98.1 , Pulse 77 , B/P 147 /79 , Respiratory Rate 19 , O2 SAT 100 , Nasal Cannula, O2 Flow Rate 2.0 . Vital Sign Comment: [STABLE,AFEBRILE] Latest Ness Fall Score: 50 Fall Risk: High Risk Safety Measures: Call light Within Reach, Bed Alarm Zone 1, Side Rails Side Rails x2, Bed position Low and Locked. Fall Precautions: Yellow Socks Yellow Gown Door Sign Patient Fall Education Report given to [ZENAIDA REYES].
[2020-11-02 08:00] VITALS: BP 151/71
[2020-11-02] MEDS: dexAMETHasone 10mg/ml Inj IV SCH (08:46)
[2020-11-02] MEDS: Carvedilol 6.25mg Tab ORAL SCH ×2 (08:46→21:11)
[2020-11-02] MEDS: Docusate 100mg cap ORAL SCH ×2 (08:47→17:20)
[2020-11-02] MEDS: Megace 400mg/10ml Susp ORAL SCH (08:47)
[2020-11-02] MEDS: Citalopram Hydrobromide 10mg Tab ORAL SCH (08:47)
[2020-11-02] MEDS: Zinc Sulfate 220mg ORAL SCH (08:47)
--- NOTE | 2020-11-02 10:55 | General Progress Note ---
Subjective Allergies: Coded Allergies: No Known Allergies (Unverified , 09/23/20) Subjective awake eating better blood sugar are improving venous duplex of leg negative Objective Last 24 Hour Vital Signs Date Time Temp Pulse Resp B/P (MAP) Pulse Ox O2 Delivery O2 Flow Rate FiO2 11/02/20 09:00 Nasal Cannula 2.0 11/02/20 08:47 71 151/71 11/02/20 08:46 71 151/71 11/02/20 08:00 98.6 71 19 151/71 (97) 99 11/02/20 05:40 147/79 11/02/20 04:00 98.1 77 19 144/75 (98) 100 11/02/20 00:00 97.7 77 19 138/69 (92) 99 11/01/20 22:00 101/60 11/01/20 20:59 66 121/63 11/01/20 20:00 97.7 73 17 137/59 (85) 96 11/01/20 20:00 Nasal Cannula 2.0 11/01/20 15:52 98.1 73 18 105/51 (69) 96 11/01/20 13:35 100/64 11/01/20 11:49 97.9 71 18 94/47 (63) 100 Intake and Output 11/01/20 11/02/20 19:00 07:00 Intake Total 360 ml 240 ml Balance 360 ml 240 ml Intake Oral 360 ml 240 ml # Bowel Movements 2 Laboratory Tests 11/01/20 11:53: POC Whole Blood Glucose [Pending] Height (Feet): 5 Height (Inches): 1.00 Weight (Pounds): 92 General Appearance: alert EENT: PERRL/EOMI Neck: supple Cardiovascular: normal rate Respiratory/Chest: crackles/rales Abdomen: non tender, soft Extremities: non-tender Assessment/Plan Status: stable Assessment/Plan: 1 sob 2 covid pna cont isolation 3 chf diastolic acute 4 esrd on hd 5 failure of thrive 6 dementia 7 dm poory controlled due to steroids add levamier and high dose short insulin pt/ot eval dw pt pt is very weak iv abx hd cardio and pulmonary consult cont current tx Cesar Swanson MD Nov 02, 2020 10:55
--- NOTE | 2020-11-02 10:58 | Cardiology Progress Note ---
Assessment/Plan Status: stable Status Narrative 1. COVID-19 viral PNA 2. HFrEF, acute on chronic systolic on diastolic HF with EF 35-40% BNP severely elevated Fluid balance with HD Troponin 0.004 3. ESRD on HD Aneuric 4. HTN - needs better control 5. Mitral regurgitation - mod-severe contributing to severity of HF 6. possible ASD with L to R shunt 7. Sinus tachycardia 2/2 viral PNA and fever BNP still severely elevated, will have microfiltration during HD. Echo shows decreased LV function, possible ASD. VUS negative for thrombus. Continue medical therapy. Subjective ROS Limited/Unobtainable: Yes Cardiovascular: Reports: no symptoms Respiratory: Reports: shortness of breath Gastrointestinal/Abdominal: Reports: no symptoms Genitourinary: Reports: no symptoms Objective Last 24 Hour Vital Signs Date Time Temp Pulse Resp B/P (MAP) Pulse Ox O2 Delivery O2 Flow Rate FiO2 11/02/20 09:00 Nasal Cannula 2.0 11/02/20 08:47 71 151/71 11/02/20 08:46 71 151/71 11/02/20 08:00 98.6 71 19 151/71 (97) 99 11/02/20 05:40 147/79 11/02/20 04:00 98.1 77 19 144/75 (98) 100 11/02/20 00:00 97.7 77 19 138/69 (92) 99 11/01/20 22:00 101/60 11/01/20 20:59 66 121/63 11/01/20 20:00 97.7 73 17 137/59 (85) 96 11/01/20 20:00 Nasal Cannula 2.0 11/01/20 15:52 98.1 73 18 105/51 (69) 96 11/01/20 13:35 100/64 11/01/20 11:49 97.9 71 18 94/47 (63) 100 General Appearance: no apparent distress EENT: PERRL/EOMI Neck: supple, no JVD Rhythm: NSR Cardiovascular: normal rate, regular rhythm Respiratory/Chest: decreased breath sounds Abdomen: soft Neurologic: oriented x 3 Intake and Output 11/01/20 11/02/20 19:00 07:00 Intake Total 360 ml 240 ml Balance 360 ml 240 ml Intake Oral 360 ml 240 ml # Bowel Movements 2 2D Echo: EF 35% Laboratory Tests Test 11/01/20 11:53 POC Whole Blood Glucose Pending Pamela Chowdhury PA-C Nov 02, 2020 10:58
--- NOTE | 2020-11-02 11:00 | NUR ---
NURSE NOTES: Patient had HD with VIP 1 Liter out. Patient in stable condition, bp running slightly low. Will continue to monitor.
--- NOTE | 2020-11-02 11:05 | NUR ---
NURSE NOTES: Patient asymptomatic, able to tolerate consuming fluid and eating snacks. Will continue to monitor.
[2020-11-02 12:00] VITALS: BP 90/43
--- NOTE | 2020-11-02 12:00 | NUR ---
NURSE NOTES: spoke with Dr. Puckett, notified Dr of decrease in bp after HD. Received orders to set parameters in bp, administer bolus of albumin and to continue monitoring patient. Orders noted.
--- NOTE | 2020-11-02 12:27 | Pulmonology Progress Note ---
Subjective ROS Limited/Unobtainable: Yes Interval Events: s/p dialysis today Constitutional: Denies: fever, chills Respiratory: Reports: no symptoms Cardiovascular: Reports: no symptoms Gastrointestinal/Abdominal: Denies: vomiting Musculoskeletal: Denies: pain Allergies: Coded Allergies: No Known Allergies (Unverified , 09/23/20) Objective Last 24 Hour Vital Signs Date Time Temp Pulse Resp B/P (MAP) Pulse Ox O2 Delivery O2 Flow Rate FiO2 11/02/20 09:00 Nasal Cannula 2.0 11/02/20 08:47 71 151/71 11/02/20 08:46 71 151/71 11/02/20 08:00 98.6 71 19 151/71 (97) 99 11/02/20 05:40 147/79 11/02/20 04:00 98.1 77 19 144/75 (98) 100 11/02/20 00:00 97.7 77 19 138/69 (92) 99 11/01/20 22:00 101/60 11/01/20 20:59 66 121/63 11/01/20 20:00 97.7 73 17 137/59 (85) 96 11/01/20 20:00 Nasal Cannula 2.0 11/01/20 15:52 98.1 73 18 105/51 (69) 96 11/01/20 13:35 100/64 Intake and Output 11/01/20 11/02/20 19:00 07:00 Intake Total 360 ml 240 ml Balance 360 ml 240 ml Intake Oral 360 ml 240 ml # Bowel Movements 2 Objective 11/02/2020 saturating well on 1 lpm NC; s/p dialysis 11/01/2020 saturating well on 1 lpm NC 10/31/2020 patient alert; saturating well on 1 lpm NC 10/30/2020 pt asleep; saturating well on low flow oxygen 10/29/2020 pt asleep in bed; saturating well on low flow oxygen General Appearance: cachetic HEENT: normocephalic, atraumatic Respiratory: chest wall non-tender, rhonchi - bilaterally, other - dialysis catheter Cardiovascular: normal rate, regular rhythm Abdomen: soft, non tender Laboratory Tests 11/02/20 11:28: POC Whole Blood Glucose 188H Current Medications Medications (Trade) Dose Ordered Sig/Yeimi Route PRN Reason Start Time Stop Time Status Last Admin Dose Admin Acetaminophen (Tylenol) 650 mg Q4H PRN ORAL Temp >100.5 10/27/20 14:15 11/26/20 14:14 Carvedilol (Coreg) 6.25 mg EVERY 12 HOURS ORAL 11/01/20 21:00 11/29/20 20:59 11/02/20 08:46 Citalopram Hydrobromide (CeleXA) 20 mg DAILY ORAL 10/29/20 09:00 11/28/20 08:59 11/02/20 08:47 Dexamethasone Sodium Phosphate (Decadron 10mg/ ml Inj) 6 mg DAILY IV 10/28/20 09:00 11/06/20 09:01 11/02/20 08:46 Dextrose (Dextrose 50%) 25 ml Q30M PRN IV Hypoglycemia 10/28/20 20:45 01/26/21 20:44 Dextrose (Dextrose 50%) 50 ml Q30M PRN IV Hypoglycemia 10/28/20 20:45 01/26/21 20:44 Docusate Sodium (Colace) 100 mg TWICE A DAY ORAL 10/28/20 18:00 11/27/20 17:59 11/02/20 08:47 Haloperidol Lactate (Haldol) 5 mg Q6H PRN IM Agitation 10/28/20 15:45 12/12/20 15:44 Hydralazine HCl (Apresoline) 75 mg Q8HR ORAL 11/01/20 14:00 01/27/21 13:59 11/02/20 05:40 Insulin Aspart (NovoLOG) BEFORE MEALS AND HS SUBQ 10/28/20 21:00 01/26/21 20:59 11/02/20 11:54 Insulin Detemir (Levemir) 10 units Q24H SUBQ 10/29/20 20:00 01/27/21 19:59 11/01/20 21:01 Megestrol Acetate (Megace) 400 mg DAILY ORAL 10/28/20 09:00 01/26/21 08:59 11/02/20 08:47 Nifedipine (Procardia XL) 30 mg DAILY ORAL 11/02/20 09:00 11/30/20 08:59 11/02/20 08:47 Pantoprazole (Protonix) 40 mg EVERY 12 HOURS ORAL 10/28/20 21:00 11/27/20 20:59 11/02/20 08:46 Sevelamer Carbonate (Renvela) 800 mg THREE TIMES A DAY ORAL 10/28/20 13:00 01/26/21 12:59 11/02/20 12:01 Zinc Sulfate (Zinc Sulfate) 220 mg DAILY ORAL 11/02/20 09:00 11/12/20 08:59 11/02/20 08:47 Assessment/Plan Assessment/Plan 1. COVID-19 pneumonia. - Continue isolation. - continue low flow oxygen; currently saturating 96% on 1 lpm NC - CXR 10/27/2020 shows multifocal infiltrate. - Continue Decadron - Discontinue ceftriaxone and azithromycin. - Repeat COVID-19 test 10/29/2020 positive 2. Renal failure, on dialysis. 3. Congestive heart failure. - BNP >35,000 - 2D echo EF 35-40% - management per cardio 4. Right eye conjunctivitis. 5. DVT ppx - D-dimer 3.08, CRP 16.1 -> 4.0 - 10/29/2020 venous ultrasound unremarkable - On SCD We will follow carefully The care of this patient was discussed with my supervising physician Time spent for this encounter was approximately 31 minutes The patient was seen and examined at bedside and all new and available data was reviewed in the patients chart. I agree with the above findings, impression, and plan. (Patient was seen earlier today. Signature timestamp does not reflect patient encounter time) Zbigniew Francis MD Nov 02, 2020 12:27 Naman Krause MD Nov 02, 2020 18:20
--- NOTE | 2020-11-02 12:31 | Nephrology Progress Note ---
Assessment/Plan Problem List: (1) End stage renal disease on dialysis (2) C. difficile colitis (3) Transient hypotension (4) Diastolic CHF, chronic Assessment 75-year-old female presents with respiratory distress and COVID-19 infection Patient has end-stage renal disease and last dialyzed 4 days ago Patient presents with high potassium History of C. difficile colitis History of diabetes mellitus History of hypertension, presents with transient hypotension History of cardiomyopathy and diastolic CHF Plan November 02: Dialyzed today. Blood pressure 95 systolic. Parameters for BP medications. Patient asymptomatic. Albumin 25% 100 cc 1 bolus dose ordered. Continue rest. Discussed with RN. November 01: Dialyzed yesterday. Labs reviewed. Medication list reviewed. Blood pressure medication adjusted. Hemodialysis tomorrow. October 31: Due for dialysis today. No labs drawn today. Continue per consultants. Will check can panel tomorrow. Medication list reviewed. Blood pressure stable. October 30: Last dialyzed October 29. Due for dialysis October 31. Continue per consultants. October 29: Patient dialyzed last evening of October 27. Serum creatinine and electrolyte much improved Continue per current treatment plan Per orders Next dialysis today October 29 Check labs in a.m. Subjective ROS Limited/Unobtainable: No Constitutional: Reports: malaise, weakness Objective Objective Last 24 Hour Vital Signs Date Time Temp Pulse Resp B/P (MAP) Pulse Ox O2 Delivery O2 Flow Rate FiO2 11/02/20 09:00 Nasal Cannula 2.0 11/02/20 08:47 71 151/71 11/02/20 08:46 71 151/71 11/02/20 08:00 98.6 71 19 151/71 (97) 99 11/02/20 05:40 147/79 11/02/20 04:00 98.1 77 19 144/75 (98) 100 11/02/20 00:00 97.7 77 19 138/69 (92) 99 11/01/20 22:00 101/60 11/01/20 20:59 66 121/63 11/01/20 20:00 97.7 73 17 137/59 (85) 96 11/01/20 20:00 Nasal Cannula 2.0 11/01/20 15:52 98.1 73 18 105/51 (69) 96 11/01/20 13:35 100/64 Intake and Output 11/01/20 11/02/20 19:00 07:00 Intake Total 360 ml 240 ml Balance 360 ml 240 ml Intake Oral 360 ml 240 ml # Bowel Movements 2 Laboratory Tests 11/02/20 11:28: POC Whole Blood Glucose 188H Height (Feet): 5 Height (Inches): 1.00 Weight (Pounds): 92 General Appearance: no apparent distress Cardiovascular: normal rate Respiratory/Chest: decreased breath sounds Abdomen: distended Chris Puckett MD Nov 02, 2020 12:31
--- NOTE | 2020-11-02 14:38 | Infectious Diseases Prog Note ---
Assessment/Plan Assessment/Plan A 1. COVID-19 pneumonia s/p ivermectin 2. Renal failure, on dialysis. 3. Congestive heart failure. 4. Right eye conjunctivitis 5. hypertension 6. Hypoxemia P 1. continue Decadron day 7 2. continue isolation Subjective ROS Limited/Unobtainable: Yes Constitutional: Reports: no symptoms Respiratory: Reports: no symptoms Gastrointestinal/Abdominal: Reports: no symptoms Genitourinary: Reports: no symptoms Allergies: Coded Allergies: No Known Allergies (Unverified , 09/23/20) Objective Last 24 Hour Vital Signs Date Time Temp Pulse Resp B/P (MAP) Pulse Ox O2 Delivery O2 Flow Rate FiO2 11/02/20 13:24 90/43 11/02/20 09:00 Nasal Cannula 2.0 11/02/20 08:47 71 151/71 11/02/20 08:46 71 151/71 11/02/20 08:00 98.6 71 19 151/71 (97) 99 11/02/20 05:40 147/79 11/02/20 04:00 98.1 77 19 144/75 (98) 100 11/02/20 00:00 97.7 77 19 138/69 (92) 99 11/01/20 22:00 101/60 11/01/20 20:59 66 121/63 11/01/20 20:00 97.7 73 17 137/59 (85) 96 11/01/20 20:00 Nasal Cannula 2.0 11/01/20 15:52 98.1 73 18 105/51 (69) 96 Height (Feet): 5 Height (Inches): 1.00 Weight (Pounds): 92 General Appearance: cachetic HEENT: mucous membranes moist Respiratory/Chest: other - oxygen by nasal cannula Cardiovascular: normal rate Abdomen: soft, non tender Extremities: no edema Neurologic/Psychiatric: alert, responsive Laboratory Tests Test 11/02/20 11:28 POC Whole Blood Glucose 188 MG/DL (74-106) H Current Medications Medications (Trade) Dose Ordered Sig/Yeimi Route PRN Reason Start Time Stop Time Status Last Admin Dose Admin Acetaminophen (Tylenol) 650 mg Q4H PRN ORAL Temp >100.5 10/27/20 14:15 11/26/20 14:14 Carvedilol (Coreg) 6.25 mg EVERY 12 HOURS ORAL 11/01/20 21:00 11/29/20 20:59 11/02/20 08:46 Citalopram Hydrobromide (CeleXA) 20 mg DAILY ORAL 10/29/20 09:00 11/28/20 08:59 11/02/20 08:47 Dexamethasone Sodium Phosphate (Decadron 10mg/ ml Inj) 6 mg DAILY IV 10/28/20 09:00 11/06/20 09:01 11/02/20 08:46 Dextrose (Dextrose 50%) 25 ml Q30M PRN IV Hypoglycemia 10/28/20 20:45 01/26/21 20:44 Dextrose (Dextrose 50%) 50 ml Q30M PRN IV Hypoglycemia 10/28/20 20:45 01/26/21 20:44 Docusate Sodium (Colace) 100 mg TWICE A DAY ORAL 10/28/20 18:00 11/27/20 17:59 11/02/20 08:47 Haloperidol Lactate (Haldol) 5 mg Q6H PRN IM Agitation 10/28/20 15:45 12/12/20 15:44 Hydralazine HCl (Apresoline) 75 mg Q8HR ORAL 11/01/20 14:00 01/27/21 13:59 11/02/20 05:40 Insulin Aspart (NovoLOG) BEFORE MEALS AND HS SUBQ 10/28/20 21:00 01/26/21 20:59 11/02/20 11:54 Insulin Detemir (Levemir) 10 units Q24H SUBQ 10/29/20 20:00 01/27/21 19:59 11/01/20 21:01 Megestrol Acetate (Megace) 400 mg DAILY ORAL 10/28/20 09:00 01/26/21 08:59 11/02/20 08:47 Nifedipine (Procardia XL) 30 mg DAILY ORAL 11/02/20 09:00 11/30/20 08:59 11/02/20 08:47 Pantoprazole (Protonix) 40 mg EVERY 12 HOURS ORAL 10/28/20 21:00 11/27/20 20:59 11/02/20 08:46 Sevelamer Carbonate (Renvela) 800 mg THREE TIMES A DAY ORAL 10/28/20 13:00 01/26/21 12:59 12/12/20 12:01 Zinc Sulfate (Zinc Sulfate) 220 mg DAILY ORAL 11/02/20 09:00 11/12/20 08:59 11/02/20 08:47 Aryan Darby MD Nov 02, 2020 14:38
[2020-11-02 16:00] VITALS: BP 117/49
--- NOTE | 2020-11-02 17:58 | Surgery Progress Note ---
Surgery Progress Note Subjective Symptoms: improved, tolerating diet, passing flatus Objective Last 24 Hour Vital Signs Date Time Temp Pulse Resp B/P (MAP) Pulse Ox O2 Delivery O2 Flow Rate FiO2 11/02/20 16:00 97.9 71 18 117/49 (71) 99 11/02/20 13:24 90/43 11/02/20 12:00 97.5 71 18 90/43 (59) 96 11/02/20 09:00 Nasal Cannula 2.0 11/02/20 08:47 71 151/71 11/02/20 08:46 71 151/71 11/02/20 08:00 98.6 71 19 151/71 (97) 99 11/02/20 05:40 147/79 11/02/20 04:00 98.1 77 19 144/75 (98) 100 11/02/20 00:00 97.7 77 19 138/69 (92) 99 11/01/20 22:00 101/60 11/01/20 20:59 66 121/63 11/01/20 20:00 97.7 73 17 137/59 (85) 96 11/01/20 20:00 Nasal Cannula 2.0 I&O Intake and Output 11/01/20 11/02/20 19:00 07:00 Intake Total 360 ml 240 ml Balance 360 ml 240 ml Intake Oral 360 ml 240 ml # Bowel Movements 2 Dressing: saturated Cardiovascular: RSR Respiratory: decreased breath sounds Abdomen: present bowel sounds Extremities: no edema, no tenderness Laboratory Tests Test 11/02/20 11:28 POC Whole Blood Glucose 188 MG/DL (74-106) H Plan Problems: (1) Decubitus skin ulcer Assessment & Plan: Pt presented on admission with multiple Pressure Injuries. DTPI Sacrum(L)8cm x (W)8cm. Base of wound is purpuric with surrounding non- Blanchable erythema. Darker skin tone without erythema or induration periwound. Pt complained at site of DTPI when minimally palpated. Non-Blanchable erythema without induration R Ischium(L)7cm x (W)7.5cm. L Heel is boggy with non-Blanchable erythema. R heel is Boggy with non-blanchable erythema. Tx.Plan: Apply Moisture Barrier Paste to Sacrum. Cover with Optifoam drsg. Change every 3 days and prn.. Apply Moisture Barrier Paste to R and L Ischial tuberosities. Cover each Ischium with Optifoam drsgs. Change every 3 days and prn. Apply Cavilon Skin Barrier to R and L Heels and each Malleoli. Cover each site with Optifoam drsgs. Change every 7 days and prn. Cover Bony prominences as needed with Optifoam drsgs. Reposition at least every 2 hours or as tolerated. Off-load heels with Pillow. (2) Dyspnea (3) Respiratory distress (4) Pneumonia due to COVID-19 virus Assessment & Plan: ++ on tx id and pulm input appreciated limited movement will need to be cautions to ensure not worsening decub (5) Hypoglycemia (6) End stage renal disease on dialysis (7) Transient hypotension (8) Diastolic CHF, chronic (9) C. difficile colitis (10) Diarrhea Assessment & Plan: DAILY ESTIMATED NEEDS: Needs based on ESRD on HD 42kg 30-40 kcals/kg 3626-3042 total kcals 1.25-1.8 g protein/kg 53-76 g total protein Fluid per MD, on HD mL/kg total fluid mLs NUTRITION DIAGNOSIS: Increased kcal and pro needs r/t renal dysfunction, wound healing as evidenced by pt w/ ESRD on HD, admitted w/ wounds, including sacral DTPI. CURRENT DIET: Renal PO DIET RECOMMENDATIONS: Maintain renal diet/ texture per ORDER CHECKER PACKER PROCESSER ADDITIONAL RECOMMENDATIONS: 1) Daily wts, calibrated bed scale 2) Rec ORDER CHECKER PACKER PROCESSER eval for appropriate texture 3) Add NEPRO TID w/ meals (425 kcal/ 19g pro per pack) 4) Monitor for hypoglycemia w/ variable PO 5) Wound healing: Nephrovite x 1, ZnSO4 220mg QD x 10 days Abdirahman BID as tolerated (11) ESRD (end stage renal disease) (12) Altered mental status (13) Pneumonia Kurt Flores Nov 02, 2020 17:58
--- NOTE | 2020-11-02 19:27 | NUR ---
NURSE HAND-OFF: Important Events on Shift:hd 1L out, albumin given, wc photos taken Patient Status: stable Diet: reg Pending Orders: n.a Pending Results/Labs:n.a Pending MD notification:n.a Latest Vital Signs: Temperature 97.9 , Pulse 71 , B/P 117 /49 , Respiratory Rate 18 , O2 SAT 99 , Nasal Cannula, O2 Flow Rate 2.0 . Vital Sign Comment: stable Latest Ness Fall Score: 50 Fall Risk: High Risk Safety Measures: Call light Within Reach, Bed Alarm Zone 1, Side Rails Side Rails x2, Bed position Low and Locked. Fall Precautions: Yellow Socks Yellow Gown Door Sign Patient Fall Education Report given to ZENAIDA Joyce.
[2020-11-02 20:00] VITALS: BP 129/60
[2020-11-02] MEDS: Levemir Flexpen SUBQ SCH (20:35)
--- NOTE | 2020-11-02 22:36 | NUR ---
NURSE NOTES: The patient is alert and oriented x3 has oxygen @ 2L via NC well tolerated. She is on hemodialysis, had dialysis today with one liters of fluids taken out well tolerated.The vitals are stable. The Patient was noted with IV site located on RH gauge 22 asymptomatic, in place and intact. Bed placed on lowest and locked, call light placed within reach and will continue to monitor for any changes in condition.
[2020-11-03] VITALS (7 sets, daily range): BP systolic 90–139; BP diastolic 42–70
[2020-11-03 05:49] LABS: BASOPHILS % (AUTO) 0.4 % (0.0-2.0); EOSINOPHILS % (AUTO) 0.1 % (0.0-3.0); HEMATOCRIT 29.6 % (37.0-47.0); HEMOGLOBIN 9.6 G/DL (12.0-16.0); LYMPHOCYTES % (AUTO) 10.4 % (20.0-45.0); MEAN CORPUSCULAR VOLUME 95 FL (80-99); MONOCYTES % (AUTO) 8.9 % (1.0-10.0); NEUTROPHILS % (AUTO) 80.2 % (45.0-75.0); PLATELET COUNT 173 K/UL (150-450); RED BLOOD COUNT 3.11 M/UL (4.20-5.40); RED CELL DISTRIBUTION WIDTH 19.2 % (11.6-14.8); WHITE BLOOD COUNT 8.9 K/UL (4.8-10.8)
[2020-11-03 06:09] LABS: ALBUMIN 2.5 G/DL (3.4-5.0); ALBUMIN/GLOBULIN RATIO 0.5 (1.0-2.7); BILIRUBIN,TOTAL 0.4 MG/DL (0.2-1.0); CALCIUM 8.5 MG/DL (8.5-10.1); CREATININE 6.7 MG/DL (0.55-1.30); POTASSIUM 5.1 MMOL/L (3.5-5.1)
[2020-11-03] MEDS: HydrALAZINE 25mg tab ORAL SCH ×3 (06:37→22:00)
[2020-11-03] MEDS: NovoLOG Insulin Flexpen SUBQ SCH ×4 (06:42→20:56)
--- NOTE | 2020-11-03 07:08 | NUR ---
NURSE HAND-OFF: Important Events on Shift:Alert and stable, continous oxygen @ 2 liters NC Patient Status: Diet: Pending Orders: Pending Results/Labs: Pending MD notification: Latest Vital Signs: Temperature 98.1 , Pulse 65 , B/P 127 /64 , Respiratory Rate 17 , O2 SAT 96 , Nasal Cannula, O2 Flow Rate 2.0 . Vital Sign Comment: Latest Ness Fall Score: 50 Fall Risk: High Risk Safety Measures: Call light Within Reach, Bed Alarm Zone 1, Side Rails Side Rails x2, Bed position Low and Locked. Fall Precautions: Yellow Socks Yellow Gown Door Sign Patient Fall Education Report given to .
--- NOTE | 2020-11-03 07:26 | NUR ---
NURSE NOTES: Received report from ZENAIDA Joyce. Patient seen lying in bed awake,alert and oriented x3.Patient currently on contact and droplet iso for (+) COVID. Currently on 2L NC no s/sx of SOB/Distress, no c/o any pain or discomfort. CHRIS permacath for dialysis. IV site located on RH gauge 22. Line intact, patent and asymptomatic. Bed placed on lowest and locked, call light place within reach and will continue to monitor for any changes in patient's condition.
[2020-11-03] MEDS: Citalopram Hydrobromide 10mg Tab ORAL SCH (08:49)
[2020-11-03] MEDS: Docusate 100mg cap ORAL SCH ×2 (08:49→17:14)
[2020-11-03] MEDS: Zinc Sulfate 220mg ORAL SCH (08:49)
[2020-11-03] MEDS: dexAMETHasone 10mg/ml Inj IV SCH (08:49)
[2020-11-03] MEDS: Megace 400mg/10ml Susp ORAL SCH (08:49)
[2020-11-03] MEDS: Carvedilol 6.25mg Tab ORAL SCH ×2 (08:50→21:07)
--- NOTE | 2020-11-03 11:47 | Surgery Progress Note ---
Surgery Progress Note Subjective Additional Comments no acute events comfortable labs noted exam stable Objective Last 24 Hour Vital Signs Date Time Temp Pulse Resp B/P (MAP) Pulse Ox O2 Delivery O2 Flow Rate FiO2 11/03/20 09:00 Nasal Cannula 2.0 11/03/20 08:50 72 139/66 11/03/20 08:49 72 139/66 11/03/20 08:00 98.0 72 18 139/66 (90) 100 11/03/20 06:37 127/64 11/03/20 04:00 98.1 65 17 127/64 (85) 96 11/03/20 00:00 98.3 68 18 133/68 (89) 97 11/02/20 21:12 129/60 11/02/20 21:11 72 129/60 11/02/20 21:00 Nasal Cannula 2.0 11/02/20 20:00 98.2 72 16 129/60 (83) 97 11/02/20 16:00 97.9 71 18 117/49 (71) 99 11/02/20 13:24 90/43 11/02/20 12:00 97.5 71 18 90/43 (59) 96 I&O Intake and Output 11/02/20 11/03/20 19:00 07:00 Intake Total 500 ml 240 ml Output Total 1000 ml Balance -500 ml 240 ml Intake Oral 500 ml 240 ml Hemodialysis UF 1000 ml # Voids 1 # Bowel Movements 1 1 Cardiovascular: RSR Respiratory: decreased breath sounds Abdomen: non-tender, present bowel sounds Extremities: no tenderness, no cyanosis Laboratory Tests Test 11/03/20 04:00 11/03/20 11:06 White Blood Count 8.9 K/UL (4.8-10.8) Red Blood Count 3.11 M/UL (4.20-5.40) L Hemoglobin 9.6 G/DL (12.0-16.0) L Hematocrit 29.6 % (37.0-47.0) L Mean Corpuscular Volume 95 FL (80-99) Mean Corpuscular Hemoglobin 30.9 PG (27.0-31.0) Mean Corpuscular Hemoglobin Concent 32.4 G/DL (32.0-36.0) Red Cell Distribution Width 19.2 % (11.6-14.8) H Platelet Count 173 K/UL (150-450) Mean Platelet Volume 7.2 FL (6.5-10.1) Neutrophils (%) (Auto) 80.2 % (45.0-75.0) H Lymphocytes (%) (Auto) 10.4 % (20.0-45.0) L Monocytes (%) (Auto) 8.9 % (1.0-10.0) Eosinophils (%) (Auto) 0.1 % (0.0-3.0) Basophils (%) (Auto) 0.4 % (0.0-2.0) Sodium Level 137 MMOL/L (136-145) Potassium Level 5.1 MMOL/L (3.5-5.1) Chloride Level 100 MMOL/L (98-107) Carbon Dioxide Level 26 MMOL/L (21-32) Anion Gap 12 mmol/L (5-15) Blood Urea Nitrogen 102 mg/dL (7-18) H Creatinine 6.7 MG/DL (0.55-1.30) H Estimat Glomerular Filtration Rate 6.0 mL/min (>60) Glucose Level 200 MG/DL (74-106) H Calcium Level 8.5 MG/DL (8.5-10.1) Phosphorus Level 6.0 MG/DL (2.5-4.9) H Magnesium Level 1.9 MG/DL (1.8-2.4) Total Bilirubin 0.4 MG/DL (0.2-1.0) Aspartate Amino Transf (AST/SGOT) 24 U/L (15-37) Alanine Aminotransferase (ALT/SGPT) 22 U/L (12-78) Alkaline Phosphatase 117 U/L (46-116) H Total Protein 7.1 G/DL (6.4-8.2) Albumin 2.5 G/DL (3.4-5.0) L Globulin 4.6 g/dL Albumin/Globulin Ratio 0.5 (1.0-2.7) L POC Whole Blood Glucose 319 MG/DL (74-106) H Plan Problems: (1) Decubitus skin ulcer Assessment & Plan: Pt presented on admission with multiple Pressure Injuries. DTPI Sacrum(L)8cm x (W)8cm. Base of wound is purpuric with surrounding non- Blanchable erythema. Darker skin tone without erythema or induration periwound. Pt complained at site of DTPI when minimally palpated. Non-Blanchable erythema without induration R Ischium(L)7cm x (W)7.5cm. L Heel is boggy with non-Blanchable erythema. R heel is Boggy with non-blanchable erythema. Tx.Plan: Apply Moisture Barrier Paste to Sacrum. Cover with Optifoam drsg. Change every 3 days and prn.. Apply Moisture Barrier Paste to R and L Ischial tuberosities. Cover each Ischium with Optifoam drsgs. Change every 3 days and prn. Apply Cavilon Skin Barrier to R and L Heels and each Malleoli. Cover each site with Optifoam drsgs. Change every 7 days and prn. Cover Bony prominences as needed with Optifoam drsgs. Reposition at least every 2 hours or as tolerated. Off-load heels with Pillow. (2) Dyspnea (3) Respiratory distress (4) Pneumonia due to COVID-19 virus Assessment & Plan: ++ on tx id and pulm input appreciated limited movement will need to be cautions to ensure not worsening decub (5) Hypoglycemia (6) End stage renal disease on dialysis (7) Transient hypotension (8) Diastolic CHF, chronic (9) C. difficile colitis (10) Diarrhea Assessment & Plan: DAILY ESTIMATED NEEDS: Needs based on ESRD on HD 42kg 30-40 kcals/kg 5976-9619 total kcals 1.25-1.8 g protein/kg 53-76 g total protein Fluid per MD, on HD mL/kg total fluid mLs NUTRITION DIAGNOSIS: Increased kcal and pro needs r/t renal dysfunction, wound healing as evidenced by pt w/ ESRD on HD, admitted w/ wounds, including sacral DTPI. CURRENT DIET: Renal PO DIET RECOMMENDATIONS: Maintain renal diet/ texture per CORE PASTER ADDITIONAL RECOMMENDATIONS: 1) Daily wts, calibrated bed scale 2) Rec CORE PASTER eval for appropriate texture 3) Add NEPRO TID w/ meals (425 kcal/ 19g pro per pack) 4) Monitor for hypoglycemia w/ variable PO 5) Wound healing: Nephrovite x 1, ZnSO4 220mg QD x 10 days Abdirahman BID as tolerated (11) ESRD (end stage renal disease) (12) Altered mental status (13) Pneumonia Kurt Flores Nov 03, 2020 11:47
--- NOTE | 2020-11-03 12:47 | Pulmonology Progress Note ---
Subjective ROS Limited/Unobtainable: Yes Interval Events: s/p dialysis; s/p albumin Constitutional: Denies: fever, chills Respiratory: Reports: no symptoms Cardiovascular: Reports: no symptoms Gastrointestinal/Abdominal: Denies: vomiting Musculoskeletal: Denies: pain Allergies: Coded Allergies: No Known Allergies (Unverified , 09/23/20) Objective Last 24 Hour Vital Signs Date Time Temp Pulse Resp B/P (MAP) Pulse Ox O2 Delivery O2 Flow Rate FiO2 11/03/20 12:00 98.9 67 17 129/69 (89) 98 11/03/20 09:00 Nasal Cannula 2.0 11/03/20 08:50 72 139/66 11/03/20 08:49 72 139/66 11/03/20 08:00 98.0 72 18 139/66 (90) 100 11/03/20 06:37 127/64 11/03/20 04:00 98.1 65 17 127/64 (85) 96 11/03/20 00:00 98.3 68 18 133/68 (89) 97 11/02/20 21:12 129/60 11/02/20 21:11 72 129/60 11/02/20 21:00 Nasal Cannula 2.0 11/02/20 20:00 98.2 72 16 129/60 (83) 97 11/02/20 16:00 97.9 71 18 117/49 (71) 99 11/02/20 13:24 90/43 Intake and Output0 11/02/20 11/03/20 19:00 07:00 Intake Total 500 ml 240 ml Output Total 1000 ml Balance -500 ml 240 ml Intake Oral 500 ml 240 ml Hemodialysis UF 1000 ml # Voids 1 # Bowel Movements 1 1 Objective 11/03/2020 saturating well on 2 lpm NC; eating in bed; NAD 11/02/2020 saturating well on 1 lpm NC; s/p dialysis 11/01/2020 saturating well on 1 lpm NC 10/31/2020 patient alert; saturating well on 1 lpm NC 10/30/2020 pt asleep; saturating well on low flow oxygen 10/29/2020 pt asleep in bed; saturating well on low flow oxygen General Appearance: cachetic HEENT: normocephalic, atraumatic Respiratory: chest wall non-tender, rhonchi - bilaterally, other - dialysis catheter Cardiovascular: normal rate, regular rhythm Abdomen: soft, non tender Laboratory Tests 11/03/20 04:00: White Blood Count 8.9, Red Blood Count 3.11L, Hemoglobin 9.6L, Hematocrit 29.6L, Mean Corpuscular Volume 95, Mean Corpuscular Hemoglobin 30.9, Mean Corpuscular Hemoglobin Concent 32.4, Red Cell Distribution Width 19.2H, Platelet Count 173, Mean Platelet Volume 7.2, Neutrophils (%) (Auto) 80.2H, Lymphocytes (%) (Auto) 10.4L, Monocytes (%) (Auto) 8.9, Eosinophils (%) (Auto) 0.1, Basophils (%) (Auto) 0.4, Sodium Level 137, Potassium Level 5.1, Chloride Level 100, Carbon Dioxide Level 26, Anion Gap 12, Blood Urea Nitrogen 102H, Creatinine 6.7H, Estimat Glomerular Filtration Rate 6.0, Glucose Level 200H, Calcium Level 8.5, Phosphorus Level 6.0H, Magnesium Level 1.9, Total Bilirubin 0.4, Aspartate Amino Transf (AST/SGOT) 24, Alanine Aminotransferase (ALT/SGPT) 22, Alkaline Phosphatase 117H, Total Protein 7.1, Albumin 2.5L, Globulin 4.6, Albumin/Globulin Ratio 0.5L 11/03/20 11:06: POC Whole Blood Glucose 319H Current Medications Medications (Trade) Dose Ordered Sig/Yeimi Route PRN Reason Start Time Stop Time Status Last Admin Dose Admin Acetaminophen (Tylenol) 650 mg Q4H PRN ORAL Temp >100.5 10/27/20 14:15 11/26/20 14:14 Carvedilol (Coreg) 6.25 mg EVERY 12 HOURS ORAL 11/01/20 21:00 11/29/20 20:59 11/03/20 08:50 Citalopram Hydrobromide (CeleXA) 20 mg DAILY ORAL 10/29/20 09:00 11/28/20 08:59 11/03/20 08:49 Dexamethasone Sodium Phosphate (Decadron 10mg/ ml Inj) 6 mg DAILY IV 10/28/20 09:00 11/06/20 09:01 11/03/20 08:49 Dextrose (Dextrose 50%) 25 ml Q30M PRN IV Hypoglycemia 10/28/20 20:45 01/26/21 20:44 Dextrose (Dextrose 50%) 50 ml Q30M PRN IV Hypoglycemia 10/28/20 20:45 01/26/21 20:44 Docusate Sodium (Colace) 100 mg TWICE A DAY ORAL 10/28/20 18:00 11/27/20 17:59 11/03/20 08:49 Haloperidol Lactate (Haldol) 5 mg Q6H PRN IM Agitation 10/28/20 15:45 12/12/20 15:44 Hydralazine HCl (Apresoline) 75 mg Q8HR ORAL 11/01/20 14:00 01/27/21 13:59 11/03/20 06:37 Insulin Aspart (NovoLOG) BEFORE MEALS AND HS SUBQ 10/28/20 21:00 01/26/21 20:59 11/03/20 12:15 Insulin Detemir (Levemir) 10 units Q24H SUBQ 10/29/20 20:00 01/27/21 19:59 11/02/20 20:35 Megestrol Acetate (Megace) 400 mg DAILY ORAL 10/28/20 09:00 01/26/21 08:59 11/03/20 08:49 Nifedipine (Procardia XL) 30 mg DAILY ORAL 11/02/20 09:00 11/30/20 08:59 11/03/20 08:49 Pantoprazole (Protonix) 40 mg EVERY 12 HOURS ORAL 10/28/20 21:00 11/27/20 20:59 11/03/20 08:49 Sevelamer Carbonate (Renvela) 800 mg THREE TIMES A DAY ORAL 10/28/20 13:00 01/26/21 12:59 11/03/20 12:13 Zinc Sulfate (Zinc Sulfate) 220 mg DAILY ORAL 11/02/20 09:00 11/12/20 08:59 11/03/20 08:49 Assessment/Plan Assessment/Plan 1. COVID-19 pneumonia. - Continue isolation. - wean down oxygen as tolerated while keeping SaO2 >92%; currently saturating 96% on 2 lpm NC - CXR 10/27/2020 shows multifocal infiltrate. - Continue Decadron - s/p ceftriaxone and azithromycin. - Repeat COVID-19 test 10/29/2020 positive 2. Renal failure, on dialysis. 3. Congestive heart failure. - BNP >35,000 - 2D echo EF 35-40% - management per cardio 4. Right eye conjunctivitis. 5. DVT ppx - D-dimer 3.08, CRP 16.1 -> 4.0 - 10/29/2020 venous ultrasound unremarkable - On SCD We will follow carefully The care of this patient was discussed with my supervising physician Time spent for this encounter was approximately 31 minutes The patient was seen and examined at bedside and all new and available data was reviewed in the patients chart. I agree with the above findings, impression, and plan. (Patient was seen earlier today. Signature timestamp does not reflect patient encounter time) Zbigniew Francis MD Nov 03, 2020 12:47 Naman Krause MD Nov 03, 2020 16:56
--- NOTE | 2020-11-03 17:34 | Nephrology Progress Note ---
Assessment/Plan Problem List: (1) End stage renal disease on dialysis (2) C. difficile colitis (3) Transient hypotension (4) Diastolic CHF, chronic Assessment 75-year-old female presents with respiratory distress and COVID-19 infection Patient has end-stage renal disease and last dialyzed 4 days ago Patient presents with high potassium History of C. difficile colitis History of diabetes mellitus History of hypertension, presents with transient hypotension History of cardiomyopathy and diastolic CHF Plan November 03: Patient was dialyzed yesterday. Labs reviewed. Blood pressure more stable. Due for dialysis tomorrow. No ultrafiltration is ordered. November 02: Dialyzed today. Blood pressure 95 systolic. Parameters for BP medications. Patient asymptomatic. Albumin 25% 100 cc 1 bolus dose ordered. Continue rest. Discussed with RN. November 01: Dialyzed yesterday. Labs reviewed. Medication list reviewed. Blood pressure medication adjusted. Hemodialysis tomorrow. October 31: Due for dialysis today. No labs drawn today. Continue per consultants. Will check can panel tomorrow. Medication list reviewed. Blood pressure stable. October 30: Last dialyzed October 29. Due for dialysis October 31. Continue per consultants. October 29: Patient dialyzed last evening of October 27. Serum creatinine and electrolyte much improved Continue per current treatment plan Per orders Next dialysis today October 29 Check labs in a.m. Subjective ROS Limited/Unobtainable: Yes Objective Objective Last 24 Hour Vital Signs Date Time Temp Pulse Resp B/P (MAP) Pulse Ox O2 Delivery O2 Flow Rate FiO2 11/03/20 16:00 97.8 67 17 131/70 (90) 98 11/03/20 14:00 129/69 11/03/20 12:00 98.9 67 17 129/69 (89) 98 11/03/20 09:00 Nasal Cannula 2.0 11/03/20 08:50 72 139/66 11/03/20 08:49 72 139/66 11/03/20 08:00 98.0 72 18 139/66 (90) 100 11/03/20 06:37 127/64 11/03/20 04:00 98.1 65 17 127/64 (85) 96 11/03/20 00:00 98.3 68 18 133/68 (89) 97 11/02/20 21:12 129/60 11/02/20 21:11 72 129/60 11/02/20 21:00 Nasal Cannula 2.0 11/02/20 20:00 98.2 72 16 129/60 (83) 97 Intake and Output 11/02/20 11/03/20 19:00 07:00 Intake Total 500 ml 240 ml Output Total 1000 ml Balance -500 ml 240 ml Intake Oral 500 ml 240 ml Hemodialysis UF 1000 ml # Voids 1 # Bowel Movements 1 1 Current Medications Medications (Trade) Dose Ordered Sig/Yeimi Route PRN Reason Start Time Stop Time Status Last Admin Dose Admin Acetaminophen (Tylenol) 650 mg Q4H PRN ORAL Temp >100.5 10/27/20 14:15 11/26/20 14:14 Carvedilol (Coreg) 6.25 mg EVERY 12 HOURS ORAL 11/01/20 21:00 11/29/20 20:59 11/03/20 08:50 Citalopram Hydrobromide (CeleXA) 20 mg DAILY ORAL 10/29/20 09:00 11/28/20 08:59 11/03/20 08:49 Dexamethasone Sodium Phosphate (Decadron 10mg/ ml Inj) 6 mg DAILY IV 10/28/20 09:00 11/06/20 09:01 11/03/20 08:49 Dextrose (Dextrose 50%) 25 ml Q30M PRN IV Hypoglycemia 10/28/20 20:45 01/26/21 20:44 Dextrose (Dextrose 50%) 50 ml Q30M PRN IV Hypoglycemia 10/28/20 20:45 01/26/21 20:44 Docusate Sodium (Colace) 100 mg TWICE A DAY ORAL 10/28/20 18:00 11/27/20 17:59 11/03/20 17:14 Haloperidol Lactate (Haldol) 5 mg Q6H PRN IM Agitation 10/28/20 15:45 12/12/20 15:44 Hydralazine HCl (Apresoline) 75 mg Q8HR ORAL 11/01/20 14:00 01/27/21 13:59 11/03/20 14:00 Insulin Aspart (NovoLOG) BEFORE MEALS AND HS SUBQ 10/28/20 21:00 01/26/21 20:59 11/03/20 17:14 Insulin Detemir (Levemir) 10 units Q24H SUBQ 10/29/20 20:00 01/27/21 19:59 11/02/20 20:35 Megestrol Acetate (Megace) 400 mg DAILY ORAL 10/28/20 09:00 01/26/21 08:59 11/03/20 08:49 Nifedipine (Procardia XL) 30 mg DAILY ORAL 11/02/20 09:00 11/30/20 08:59 11/03/20 08:49 Pantoprazole (Protonix) 40 mg EVERY 12 HOURS ORAL 10/28/20 21:00 11/27/20 20:59 11/03/20 08:49 Sevelamer Carbonate (Renvela) 800 mg THREE TIMES A DAY ORAL 10/28/20 13:00 01/26/21 12:59 11/03/20 17:14 Zinc Sulfate (Zinc Sulfate) 220 mg DAILY ORAL 11/02/20 09:00 11/12/20 08:59 11/03/20 08:49 Laboratory Tests 11/03/20 04:00: White Blood Count 8.9, Red Blood Count 3.11L, Hemoglobin 9.6L, Hematocrit 29.6L, Mean Corpuscular Volume 95, Mean Corpuscular Hemoglobin 30.9, Mean Corpuscular Hemoglobin Concent 32.4, Red Cell Distribution Width 19.2H, Platelet Count 173, Mean Platelet Volume 7.2, Neutrophils (%) (Auto) 80.2H, Lymphocytes (%) (Auto) 10.4L, Monocytes (%) (Auto) 8.9, Eosinophils (%) (Auto) 0.1, Basophils (%) (Auto) 0.4, Sodium Level 137, Potassium Level 5.1, Chloride Level 100, Carbon Dioxide Level 26, Anion Gap 12, Blood Urea Nitrogen 102H, Creatinine 6.7H, Estimat Glomerular Filtration Rate 6.0, Glucose Level 200H, Calcium Level 8.5, Phosphorus Level 6.0H, Magnesium Level 1.9, Total Bilirubin 0.4, Aspartate Amino Transf (AST/SGOT) 24, Alanine Aminotransferase (ALT/SGPT) 22, Alkaline Phosphatase 117H, Total Protein 7.1, Albumin 2.5L, Globulin 4.6, Albumin/Globulin Ratio 0.5L 11/03/20 11:06: POC Whole Blood Glucose 319H 11/03/20 16:15: POC Whole Blood Glucose 337H Height (Feet): 5 Height (Inches): 1.00 Weight (Pounds): 92 General Appearance: no apparent distress Cardiovascular: normal rate Respiratory/Chest: decreased breath sounds Abdomen: distended Chris Puckett MD Nov 03, 2020 17:34
--- NOTE | 2020-11-03 19:18 | NUR ---
NURSE HAND-OFF: Important Events on Shift:SCHEDULED HD WT VIP 11/04/2020 Patient Status: Stable Diet: renal Pending Orders: n/a Pending Results/Labs:n/a Pending MD notification:n/a Latest Vital Signs: Temperature 97.8 , Pulse 67 , B/P 131 /70 , Respiratory Rate 17 , O2 SAT 98 , Nasal Cannula, O2 Flow Rate 2.0 . Vital Sign Comment: stable Latest Ness Fall Score: 50 Fall Risk: High Risk Safety Measures: Call light Within Reach, Bed Alarm Zone 1, Side Rails Side Rails x2, Bed position Low and Locked. Fall Precautions: Yellow Socks Yellow Gown Door Sign Patient Fall Education Report given to ZENAIDA Wise.
--- NOTE | 2020-11-03 19:45 | NUR ---
NURSE NOTES: Pt. received from ZENAIDA Villagomez. Pt. AAOx3, breathing even and unlabored on 2L NC, no indications of respiratory distress, no complaints of pain at this time. IV noted right hand 22g saline locked, dialysis access left upper chest. Bed low and locked, side rails x3 up, bed alarm active, and call light in reach.
[2020-11-03] MEDS: Levemir Flexpen SUBQ SCH (20:55)
--- NOTE | 2020-11-03 22:43 | NUR ---
NURSE NOTES: Relayed to Dr. Puckett pt BP 101/50, blood pressure medication at 2100 held, BP reassessed at 2215 BP 90/42. Notified Dr. Puckett of both blood pressures, pt. AAO to baseline, verbal and answering simple questions. No orders received, instructed to notify primary MD. Charge nurse aware.
--- NOTE | 2020-11-03 22:52 | NUR ---
NURSE NOTES: Dr. Swanson notified, orders to DC blood pressure medications.
--- NOTE | 2020-11-03 23:20 | General Progress Note ---
Subjective Constitutional: Denies: no symptoms, chills, diaphoresis, fever, malaise, weakness, other HEENT: Denies: no symptoms, eye pain, blurred vision, tearing, double vision, ear pain, ear discharge, nose pain, nose congestion, throat pain, throat swelling, mouth pain, mouth swelling, other Cardiovascular: Denies: no symptoms, chest pain, edema, irregular heart rate, lightheadedness, palpitations, syncope, other Respiratory: Denies: no symptoms, cough, orthopnea, shortness of breath, SOB with excertion, SOB at rest, sputum, stridor, wheezing, other Genitourinary: Denies: no symptoms, burning, discharge, frequency, flank pain, hematuria, incontinence, pain, urgency, other Neurologic/Psychiatric: Denies: no symptoms, anxiety, depressed, emotional problems, headache, numbness, paresthesia, pre-existing deficit, seizure, tingling, tremors, weakness, other Endocrine: Denies: no symptoms, excessive sweating, flushing, intolerance to cold, intolerance to heat, increased hunger, increased thirst, increased urine, unexplained weight gain, unexplained weight loss, other Allergies: Coded Allergies: No Known Allergies (Unverified , 09/23/20) Subjective 11/03 covering, events reviewed, on decadron, abx completed Objective Last 24 Hour Vital Signs Date Time Temp Pulse Resp B/P (MAP) Pulse Ox O2 Delivery O2 Flow Rate FiO2 11/03/20 22:00 101/50 11/03/20 21:07 70 101/50 11/03/20 16:00 97.8 67 17 131/70 (90) 98 11/03/20 14:00 129/69 11/03/20 12:00 98.9 67 17 129/69 (89) 98 11/03/20 09:00 Nasal Cannula 2.0 11/03/20 08:50 72 139/66 11/03/20 08:49 72 139/66 11/03/20 08:00 98.0 72 18 139/66 (90) 100 11/03/20 06:37 127/64 11/03/20 04:00 98.1 65 17 127/64 (85) 96 11/03/20 00:00 98.3 68 18 133/68 (89) 97 Intake and Output 11/02/20 11/03/20 19:00 07:00 Intake Total 500 ml 240 ml Output Total 1000 ml Balance -500 ml 240 ml Intake Oral 500 ml 240 ml Hemodialysis UF 1000 ml # Voids 1 # Bowel Movements 1 1 Laboratory Tests 11/03/20 04:00: White Blood Count 8.9, Red Blood Count 3.11L, Hemoglobin 9.6L, Hematocrit 29.6L, Mean Corpuscular Volume 95, Mean Corpuscular Hemoglobin 30.9, Mean Corpuscular Hemoglobin Concent 32.4, Red Cell Distribution Width 19.2H, Platelet Count 173, Mean Platelet Volume 7.2, Neutrophils (%) (Auto) 80.2H, Lymphocytes (%) (Auto) 10.4L, Monocytes (%) (Auto) 8.9, Eosinophils (%) (Auto) 0.1, Basophils (%) (Auto) 0.4, Sodium Level 137, Potassium Level 5.1, Chloride Level 100, Carbon Dioxide Level 26, Anion Gap 12, Blood Urea Nitrogen 102H, Creatinine 6.7H, Estimat Glomerular Filtration Rate 6.0, Glucose Level 200H, Calcium Level 8.5, Phosphorus Level 6.0H, Magnesium Level 1.9, Total Bilirubin 0.4, Aspartate Amino Transf (AST/SGOT) 24, Alanine Aminotransferase (ALT/SGPT) 22, Alkaline Phosphatase 117H, Total Protein 7.1, Albumin 2.5L, Globulin 4.6, Albumin/Globulin Ratio 0.5L 11/03/20 11:06: POC Whole Blood Glucose 319H 11/03/20 16:15: POC Whole Blood Glucose 337H 11/03/20 22:29: POC Whole Blood Glucose 251H Height (Feet): 5 Height (Inches): 1.00 Weight (Pounds): 92 General Appearance: lethargic EENT: normal ENT inspection Cardiovascular: regular rhythm Respiratory/Chest: normal breath sounds Abdomen: abnormal bowel sounds Extremities: normal inspection Edema: mild edema Assessment/Plan Status: stable Assessment/Plan: 1 sob 2 covid pna cont isolation 3 chf diastolic acute 4 esrd on hd 5 failure of thrive 6 dementia 7 dm poory controlled due to steroids add levamier and high dose short insulin pt/ot eval dw pt pt is very weak iv abx hd cardio and pulmonary consult cont current tx Noemi Dotson NP Nov 03, 2020 23:20
[2020-11-04] VITALS: BP 124/46
[2020-11-04 04:00] VITALS: BP 139/62
[2020-11-04] MEDS: NovoLOG Insulin Flexpen SUBQ SCH ×4 (06:20→20:20)
--- NOTE | 2020-11-04 07:39 | NUR ---
NURSE HAND-OFF: Important Events on Shift:[]hypotensive overnight, Dr. Puckett and Dr. Swanson notified and orders received; no normotensive. Patient Status: stable Diet: renal Pending Orders: hemodialysis Pending Results/Labs:na Pending MD notification:na Latest Vital Signs: Temperature 99.1 , Pulse 74 , B/P 139 /62 , Respiratory Rate 20 , O2 SAT 99 , Nasal Cannula, O2 Flow Rate 2.0 . Vital Sign Comment: stable Latest Ness Fall Score: 50 Fall Risk: High Risk Safety Measures: Call light Within Reach, Bed Alarm Zone 1, Side Rails Side Rails x2, Bed position Low and Locked. Fall Precautions: Yellow Socks Yellow Gown Door Sign Patient Fall Education Report given to ZENAIDA Garcias.
[2020-11-04 08:00] VITALS: BP 126/70
--- NOTE | 2020-11-04 08:00 | NUR ---
NURSE NOTES: Received patient lying in bed awake, alert and oriented x3.Patient on 2L NC, in NAD, no signs of SOB, no c/o any pain or discomfort. CHRIS permacath for dialysis. IV site located on RH gauge 22 is intact, patent and asymptomatic. Bed locked, on break and on lowest position possible, call light place within easy reach, side rails x3. Will continue to monitor patient and follow up with the plan of care.
[2020-11-04] MEDS: Docusate 100mg cap ORAL SCH ×2 (10:28→17:09)
[2020-11-04] MEDS: Megace 400mg/10ml Susp ORAL SCH (10:28)
[2020-11-04] MEDS: Citalopram Hydrobromide 10mg Tab ORAL SCH (10:28)
[2020-11-04] MEDS: Zinc Sulfate 220mg ORAL SCH (10:29)
[2020-11-04] MEDS: dexAMETHasone 10mg/ml Inj IV SCH (10:29)
--- NOTE | 2020-11-04 10:38 | Pulmonology Progress Note ---
Subjective ROS Limited/Unobtainable: Yes Interval Events: hypotensive overnight; off BP meds per Dr. Swanson; now normotensive Constitutional: Denies: fever, chills Respiratory: Reports: no symptoms Cardiovascular: Reports: no symptoms Gastrointestinal/Abdominal: Denies: vomiting Musculoskeletal: Denies: pain Allergies: Coded Allergies: No Known Allergies (Unverified , 09/23/20) Objective Last 24 Hour Vital Signs Date Time Temp Pulse Resp B/P (MAP) Pulse Ox O2 Delivery O2 Flow Rate FiO2 11/04/20 08:00 98.1 72 20 126/70 (88) 99 11/04/20 04:00 99.1 74 20 139/62 (87) 99 11/04/20 00:00 97.9 72 16 124/46 (72) 99 11/03/20 22:15 90/42 (58) 11/03/20 22:00 101/50 11/03/20 21:07 70 101/50 11/03/20 21:00 Nasal Cannula 2.0 11/03/20 20:00 98.2 70 18 101/50 (67) 100 11/03/20 16:00 97.8 67 17 131/70 (90) 98 11/03/20 14:00 129/69 11/03/20 12:00 98.9 67 17 129/69 (89) 98 Intake and Output 11/03/20 11/04/20 19:00 07:00 Intake Total 500 ml Balance 500 ml Other 500 ml # Bowel Movements 1 Objective 11/04/2020 pt asleep; saturating well on 2 lpm NC; NAD 11/03/2020 saturating well on 2 lpm NC; eating in bed; NAD 11/02/2020 saturating well on 1 lpm NC; s/p dialysis 11/01/2020 saturating well on 1 lpm NC 10/31/2020 patient alert; saturating well on 1 lpm NC 10/30/2020 pt asleep; saturating well on low flow oxygen 10/29/2020 pt asleep in bed; saturating well on low flow oxygen General Appearance: cachetic HEENT: normocephalic, atraumatic Respiratory: chest wall non-tender, rhonchi - bilaterally, other - dialysis catheter Cardiovascular: normal rate, regular rhythm Abdomen: soft, non tender Laboratory Tests 11/03/20 11:06: POC Whole Blood Glucose 319H 11/03/20 16:15: POC Whole Blood Glucose 337H 11/03/20 22:29: POC Whole Blood Glucose 251H Current Medications Medications (Trade) Dose Ordered Sig/Yeimi Route PRN Reason Start Time Stop Time Status Last Admin Dose Admin Acetaminophen (Tylenol) 650 mg Q4H PRN ORAL Temp >100.5 10/27/20 14:15 11/26/20 14:14 Citalopram Hydrobromide (CeleXA) 20 mg DAILY ORAL 10/29/20 09:00 11/28/20 08:59 11/04/20 10:28 Dexamethasone Sodium Phosphate (Decadron 10mg/ ml Inj) 6 mg DAILY IV 10/28/20 09:00 11/06/20 09:01 11/04/20 10:29 Dextrose (Dextrose 50%) 25 ml Q30M PRN IV Hypoglycemia 10/28/20 20:45 01/26/21 20:44 Dextrose (Dextrose 50%) 50 ml Q30M PRN IV Hypoglycemia 10/28/20 20:45 01/26/21 20:44 Docusate Sodium (Colace) 100 mg TWICE A DAY ORAL 10/28/20 18:00 11/27/20 17:59 11/04/20 10:28 Haloperidol Lactate (Haldol) 5 mg Q6H PRN IM Agitation 10/28/20 15:45 12/12/20 15:44 Insulin Aspart (NovoLOG) BEFORE MEALS AND HS SUBQ 10/28/20 21:00 01/26/21 20:59 11/04/20 06:20 Insulin Detemir (Levemir) 10 units Q24H SUBQ 10/29/20 20:00 01/27/21 19:59 11/03/20 20:55 Megestrol Acetate (Megace) 400 mg DAILY ORAL 10/28/20 09:00 01/26/21 08:59 11/04/20 10:28 Pantoprazole (Protonix) 40 mg EVERY 12 HOURS ORAL 10/28/20 21:00 11/27/20 20:59 11/04/20 10:28 Sevelamer Carbonate (Renvela) 800 mg THREE TIMES A DAY ORAL 10/28/20 13:00 01/26/21 12:59 11/04/20 10:29 Zinc Sulfate (Zinc Sulfate) 220 mg DAILY ORAL 11/02/20 09:00 11/12/20 08:59 11/04/20 10:29 Assessment/Plan Assessment/Plan 1. COVID-19 pneumonia. - Continue isolation. - wean down oxygen as tolerated while keeping SaO2 >92%; currently saturating 96% on 2 lpm NC - CXR 10/27/2020 shows multifocal infiltrate. - Continue Decadron - s/p ceftriaxone and azithromycin. - Repeat COVID-19 test 10/29/2020 positive 2. Renal failure, on dialysis. 3. Congestive heart failure. - BNP >35,000 - 2D echo EF 35-40% - management per cardio 4. Right eye conjunctivitis. 5. DVT ppx - D-dimer 3.08, CRP 16.1 -> 4.0 - 10/29/2020 venous ultrasound unremarkable - On SCD We will follow carefully The care of this patient was discussed with my supervising physician Time spent for this encounter was approximately 31 minutes The patient was seen and examined at bedside and all new and available data was reviewed in the patients chart. I agree with the above findings, impression, and plan. (Patient was seen earlier today. Signature timestamp does not reflect patient encounter time) Zbigniew Francis MD Nov 04, 2020 10:38 Naman Krause MD Nov 04, 2020 17:09
--- NOTE | 2020-11-04 11:33 | Hematology/Onc Progress Note ---
Assessment/Plan Assessment/Plan # Anemia of chronic disease due to underlying chronic medical issues, multifactorial v Gi bleed --> Anemia workup has been ordered, rule out gi bleed --> No evidence of hemolysis is noted, peripheral smear has been reviewed. --> Hgb goal >7. Transfuse prn --> Epogen or iron at this time is not particularly indicated --> Medications have been reviewed --> low threshold for gi evaluation in case has occult + --> hgb 11-->9.6 # Covid pna cont isolation -> completed steriods --> per pulm recs # chf diastolic acute -> cards aware # Esrd on hd --> per renal # failure of thrive # dementia # dm poory controlled due to steroids Appreciate consultation and dw PCP Subjective Constitutional: Denies: no symptoms, chills, fever, malaise, weakness, other HEENT: Denies: no symptoms, eye pain, blurred vision, tearing, double vision, ear pain, ear discharge, nose pain, nose congestion, throat pain, throat swelling, mouth pain, mouth swelling, other Cardiovascular: Denies: no symptoms, chest pain, edema, irregular heart rate, lightheadedness, palpitations, syncope, other Respiratory: Denies: no symptoms, cough, shortness of breath, SOB with excertion, SOB at rest, sputum, wheezing, other Genitourinary: Denies: no symptoms, burning, discharge, frequency, flank pain, hematuria, incontinence, pain, urgency, other Neurologic/Psychiatric: Denies: no symptoms, anxiety, depressed, emotional problems, headache, numbness, paresthesia, pre-existing deficit, seizure, tingling, tremors, weakness, other Endocrine: Denies: no symptoms, excessive sweating, flushing, intolerance to cold, intolerance to heat, increased hunger, increased thirst, increased urine, unexplained weight gain, unexplained weight loss, other Allergies: Coded Allergies: No Known Allergies (Unverified , 09/23/20) Subjective 11/04 labs are noted, no bleeding, meds reviewed, on steriods, seen by pulm Objective Objective Current Medications Medications (Trade) Dose Ordered Sig/Yeimi Route PRN Reason Start Time Stop Time Status Last Admin Dose Admin Acetaminophen (Tylenol) 650 mg Q4H PRN ORAL Temp >100.5 10/27/20 14:15 11/26/20 14:14 Citalopram Hydrobromide (CeleXA) 20 mg DAILY ORAL 10/29/20 09:00 11/28/20 08:59 11/04/20 10:28 Dexamethasone Sodium Phosphate (Decadron 10mg/ ml Inj) 6 mg DAILY IV 10/28/20 09:00 11/06/20 09:01 11/04/20 10:29 Dextrose (Dextrose 50%) 25 ml Q30M PRN IV Hypoglycemia 10/28/20 20:45 01/26/21 20:44 Dextrose (Dextrose 50%) 50 ml Q30M PRN IV Hypoglycemia 10/28/20 20:45 01/26/21 20:44 Docusate Sodium (Colace) 100 mg TWICE A DAY ORAL 10/28/20 18:00 11/27/20 17:59 11/04/20 10:28 Haloperidol Lactate (Haldol) 5 mg Q6H PRN IM Agitation 10/28/20 15:45 12/12/20 15:44 Insulin Aspart (NovoLOG) BEFORE MEALS AND HS SUBQ 10/28/20 21:00 01/26/21 20:59 11/04/20 06:20 Insulin Detemir (Levemir) 10 units Q24H SUBQ 10/29/20 20:00 01/27/21 19:59 11/03/20 20:55 Megestrol Acetate (Megace) 400 mg DAILY ORAL 10/28/20 09:00 01/26/21 08:59 11/04/20 10:28 Pantoprazole (Protonix) 40 mg EVERY 12 HOURS ORAL 10/28/20 21:00 11/27/20 20:59 11/04/20 10:28 Sevelamer Carbonate (Renvela) 800 mg THREE TIMES A DAY ORAL 10/28/20 13:00 01/26/21 12:59 11/04/20 10:29 Zinc Sulfate (Zinc Sulfate) 220 mg DAILY ORAL 11/02/20 09:00 11/12/20 08:59 11/04/20 10:29 Last 24 Hour Vital Signs Date Time Temp Pulse Resp B/P (MAP) Pulse Ox O2 Delivery O2 Flow Rate FiO2 11/04/20 08:00 98.1 72 20 126/70 (88) 99 11/04/20 04:00 99.1 74 20 139/62 (87) 99 11/04/20 00:00 97.9 72 16 124/46 (72) 99 11/03/20 22:15 90/42 (58) 11/03/20 22:00 101/50 11/03/20 21:07 70 101/50 11/03/20 21:00 Nasal Cannula 2.0 11/03/20 20:00 98.2 70 18 101/50 (67) 100 11/03/20 16:00 97.8 67 17 131/70 (90) 98 11/03/20 14:00 129/69 11/03/20 12:00 98.9 67 17 129/69 (89) 98 11/03/20 09:00 Nasal Cannula 2.0 11/03/20 08:50 72 139/66 11/03/20 08:49 72 139/66 11/03/20 08:00 98.0 72 18 139/66 (90) 100 11/03/20 06:37 127/64 11/03/20 04:00 98.1 65 17 127/64 (85) 96 11/03/20 00:00 98.3 68 18 133/68 (89) 97 11/02/20 21:12 129/60 11/02/20 21:11 72 129/60 11/02/20 21:00 Nasal Cannula 2.0 11/02/20 20:00 98.2 72 16 129/60 (83) 97 11/02/20 16:00 97.9 71 18 117/49 (71) 99 11/02/20 13:24 90/43 11/02/20 12:00 97.5 71 18 90/43 (59) 96 Intake and Output 11/03/20 11/04/20 19:00 07:00 Intake Total 500 ml Balance 500 ml Other 500 ml # Bowel Movements 1 Labs Test 11/01/20 11:53 11/02/20 11:28 11/03/20 04:00 11/03/20 11:06 POC Whole Blood Glucose 188 MG/DL (74-106) 319 MG/DL (74-106) White Blood Count 8.9 K/UL (4.8-10.8) Red Blood Count 3.11 M/UL (4.20-5.40) Hemoglobin 9.6 G/DL (12.0-16.0) Hematocrit 29.6 % (37.0-47.0) Mean Corpuscular Volume 95 FL (80-99) Mean Corpuscular Hemoglobin 30.9 PG (27.0-31.0) Mean Corpuscular Hemoglobin Concent 32.4 G/DL (32.0-36.0) Red Cell Distribution Width 19.2 % (11.6-14.8) Platelet Count 173 K/UL (150-450) Mean Platelet Volume 7.2 FL (6.5-10.1) Neutrophils (%) (Auto) 80.2 % (45.0-75.0) Lymphocytes (%) (Auto) 10.4 % (20.0-45.0) Monocytes (%) (Auto) 8.9 % (1.0-10.0) Eosinophils (%) (Auto) 0.1 % (0.0-3.0) Basophils (%) (Auto) 0.4 % (0.0-2.0) Sodium Level 137 MMOL/L (136-145) Potassium Level 5.1 MMOL/L (3.5-5.1) Chloride Level 100 MMOL/L (98-107) Carbon Dioxide Level 26 MMOL/L (21-32) Anion Gap 12 mmol/L (5-15) Blood Urea Nitrogen 102 mg/dL (7-18) Creatinine 6.7 MG/DL (0.55-1.30) Estimat Glomerular Filtration Rate 6.0 mL/min (>60) Glucose Level 200 MG/DL (74-106) Calcium Level 8.5 MG/DL (8.5-10.1) Phosphorus Level 6.0 MG/DL (2.5-4.9) Magnesium Level 1.9 MG/DL (1.8-2.4) Total Bilirubin 0.4 MG/DL (0.2-1.0) Aspartate Amino Transf (AST/SGOT) 24 U/L (15-37) Alanine Aminotransferase (ALT/SGPT) 22 U/L (12-78) Alkaline Phosphatase 117 U/L (46-116) Total Protein 7.1 G/DL (6.4-8.2) Albumin 2.5 G/DL (3.4-5.0) Globulin 4.6 g/dL Albumin/Globulin Ratio 0.5 (1.0-2.7) Test 11/03/20 16:15 11/03/20 22:29 11/04/20 11:11 POC Whole Blood Glucose 337 MG/DL (74-106) 251 MG/DL (74-106) Height (Feet): 5 Height (Inches): 1.00 Weight (Pounds): 92 General Appearance: alert Neck: normal inspection Cardiovascular: regular rhythm Respiratory/Chest: normal breath sounds Abdomen: no organomegaly Extremities: normal range of motion Neurologic: no motor/sensory deficits Skin: warm/dry Timothy Lam MD Nov 04, 2020 11:33
[2020-11-04 12:00] VITALS: BP 144/65
--- NOTE | 2020-11-04 12:23 | Infectious Diseases Prog Note ---
Assessment/Plan Assessment/Plan antibiotics : none A 1. COVID-19 pneumonia on 2 L oxygen with O2 saturation of 98 %. s/p ivermectin 2. Renal failure, on dialysis. 3. Congestive heart failure. 4. Right eye conjunctivitis improving 5. hypertension P 1. continue decadron day 9 2. continue isolation Subjective Constitutional: Denies: fever, chills Respiratory: Denies: shortness of breath, dry cough Gastrointestinal/Abdominal: Denies: nausea, vomiting, diarrhea Musculoskeletal: Denies: pain Allergies: Coded Allergies: No Known Allergies (Unverified , 09/23/20) Objective Last 24 Hour Vital Signs Date Time Temp Pulse Resp B/P (MAP) Pulse Ox O2 Delivery O2 Flow Rate FiO2 11/04/20 09:00 Nasal Cannula 2.0 11/04/20 08:00 98.1 72 20 126/70 (88) 99 11/04/20 04:00 99.1 74 20 139/62 (87) 99 11/04/20 00:00 97.9 72 16 124/46 (72) 99 11/03/20 22:15 90/42 (58) 11/03/20 22:00 101/50 11/03/20 21:07 70 101/50 11/03/20 21:00 Nasal Cannula 2.0 11/03/20 20:00 98.2 70 18 101/50 (67) 100 11/03/20 16:00 97.8 67 17 131/70 (90) 98 11/03/20 14:00 129/69 Height (Feet): 5 Height (Inches): 1.00 Weight (Pounds): 92 Laboratory Tests Test 11/03/20 16:15 11/03/20 22:29 11/04/20 11:11 POC Whole Blood Glucose 337 MG/DL (74-106) H 251 MG/DL (74-106) H Pending Current Medications Medications (Trade) Dose Ordered Sig/Yeimi Route PRN Reason Start Time Stop Time Status Last Admin Dose Admin Acetaminophen (Tylenol) 650 mg Q4H PRN ORAL Temp >100.5 10/27/20 14:15 11/26/20 14:14 Citalopram Hydrobromide (CeleXA) 20 mg DAILY ORAL 10/29/20 09:00 11/28/20 08:59 11/04/20 10:28 Dexamethasone Sodium Phosphate (Decadron 10mg/ ml Inj) 6 mg DAILY IV 10/28/20 09:00 11/06/20 09:01 11/04/20 10:29 Dextrose (Dextrose 50%) 25 ml Q30M PRN IV Hypoglycemia 10/28/20 20:45 01/26/21 20:44 Dextrose (Dextrose 50%) 50 ml Q30M PRN IV Hypoglycemia 10/28/20 20:45 01/26/21 20:44 Docusate Sodium (Colace) 100 mg TWICE A DAY ORAL 10/28/20 18:00 11/27/20 17:59 11/04/20 10:28 Haloperidol Lactate (Haldol) 5 mg Q6H PRN IM Agitation 10/28/20 15:45 12/12/20 15:44 Insulin Aspart (NovoLOG) BEFORE MEALS AND HS SUBQ 10/28/20 21:00 01/26/21 20:59 11/04/20 06:20 Insulin Detemir (Levemir) 10 units Q24H SUBQ 10/29/20 20:00 01/27/21 19:59 11/03/20 20:55 Megestrol Acetate (Megace) 400 mg DAILY ORAL 10/28/20 09:00 01/26/21 08:59 11/04/20 10:28 Pantoprazole (Protonix) 40 mg EVERY 12 HOURS ORAL 10/28/20 21:00 11/27/20 20:59 11/04/20 10:28 Sevelamer Carbonate (Renvela) 800 mg THREE TIMES A DAY ORAL 10/28/20 13:00 01/26/21 12:59 11/04/20 10:29 Zinc Sulfate (Zinc Sulfate) 220 mg DAILY ORAL 11/02/20 09:00 11/12/20 08:59 11/04/20 10:29 Erika Stiles MD Nov 04, 2020 12:23
--- NOTE | 2020-11-04 14:51 | General Progress Note ---
Subjective Allergies: Coded Allergies: No Known Allergies (Unverified , 09/23/20) Subjective awake eating better blood sugar are improving Objective Last 24 Hour Vital Signs Date Time Temp Pulse Resp B/P (MAP) Pulse Ox O2 Delivery O2 Flow Rate FiO2 11/04/20 12:00 98.2 74 20 144/65 (91) 99 11/04/20 09:00 Nasal Cannula 2.0 11/04/20 08:00 98.1 72 20 126/70 (88) 99 11/04/20 04:00 99.1 74 20 139/62 (87) 99 11/04/20 00:00 97.9 72 16 124/46 (72) 99 11/03/20 22:15 90/42 (58) 11/03/20 22:00 101/50 11/03/20 21:07 70 101/50 11/03/20 21:00 Nasal Cannula 2.0 11/03/20 20:00 98.2 70 18 101/50 (67) 100 11/03/20 16:00 97.8 67 17 131/70 (90) 98 Intake and Output 11/03/20 11/04/20 19:00 07:00 Intake Total 500 ml Balance 500 ml Other 500 ml # Bowel Movements 1 Laboratory Tests 11/03/20 16:15: POC Whole Blood Glucose 337H 11/03/20 22:29: POC Whole Blood Glucose 251H 11/04/20 11:11: POC Whole Blood Glucose [Pending] Height (Feet): 5 Height (Inches): 1.00 Weight (Pounds): 92 General Appearance: alert EENT: PERRL/EOMI Neck: supple Cardiovascular: regular rhythm Respiratory/Chest: normal breath sounds Abdomen: non tender, soft Extremities: non-tender Assessment/Plan Status: stable Assessment/Plan: 1 sob 2 covid pna cont isolation 3 chf diastolic acute 4 esrd on hd 5 failure of thrive 6 dementia 7 dm poory controlled due to steroids 8 hypotension add levamier and high dose short insulin pt/ot eval dw pt pt is very weak iv abx hd cardio and pulmonary consult cont current tx Cesar Swanson MD Nov 04, 2020 14:51
[2020-11-04 16:07] VITALS: BP 146/68
--- NOTE | 2020-11-04 16:11 | Cardiology Progress Note ---
Assessment/Plan Status Narrative 1. COVID-19 viral PNA 2. HFrEF, acute on chronic systolic on diastolic HF with EF 35-40% BNP severely elevated Fluid balance with HD Troponin 0.004 3. ESRD on HD Aneuric 4. HTN - needs better control 5. Mitral regurgitation - mod-severe contributing to severity of HF 6. possible ASD with L to R shunt 7. Sinus tachycardia 2/2 viral PNA and fever Afebrile. BNP still elevated, fluid balance with HD. Echo shows decreased LV function, possible ASD. VUS negative for thrombus. Continue medical therapy. Subjective ROS Limited/Unobtainable: No Cardiovascular: Reports: no symptoms Respiratory: Reports: shortness of breath Gastrointestinal/Abdominal: Reports: no symptoms Genitourinary: Reports: no symptoms Objective Last 24 Hour Vital Signs Date Time Temp Pulse Resp B/P (MAP) Pulse Ox O2 Delivery O2 Flow Rate FiO2 11/04/20 12:00 98.2 74 20 144/65 (91) 99 11/04/20 09:00 Nasal Cannula 2.0 11/04/20 08:00 98.1 72 20 126/70 (88) 99 11/04/20 04:00 99.1 74 20 139/62 (87) 99 11/04/20 00:00 97.9 72 16 124/46 (72) 99 11/03/20 22:15 90/42 (58) 11/03/20 22:00 101/50 11/03/20 21:07 70 101/50 11/03/20 21:00 Nasal Cannula 2.0 11/03/20 20:00 98.2 70 18 101/50 (67) 100 General Appearance: no apparent distress EENT: PERRL/EOMI Neck: no JVD Rhythm: NSR Cardiovascular: normal rate, regular rhythm Respiratory/Chest: no respiratory distress Neurologic: proofsheet corrector II-XII grossly normal Intake and Output 11/03/20 11/04/20 19:00 07:00 Intake Total 500 ml Balance 500 ml Other 500 ml # Bowel Movements 1 Laboratory Tests Test 11/03/20 16:15 11/03/20 22:29 11/04/20 11:11 POC Whole Blood Glucose 337 MG/DL (74-106) H 251 MG/DL (74-106) H Pending Pamela Chowdhury PA-C Nov 04, 2020 16:11
--- NOTE | 2020-11-04 16:21 | Surgery Progress Note ---
Surgery Progress Note Subjective Symptoms: improved, tolerating diet, passing flatus Objective Last 24 Hour Vital Signs Date Time Temp Pulse Resp B/P (MAP) Pulse Ox O2 Delivery O2 Flow Rate FiO2 11/04/20 16:07 98.1 76 16 146/68 (94) 99 11/04/20 12:00 98.2 74 20 144/65 (91) 99 11/04/20 09:00 Nasal Cannula 2.0 11/04/20 08:00 98.1 72 20 126/70 (88) 99 11/04/20 04:00 99.1 74 20 139/62 (87) 99 11/04/20 00:00 97.9 72 16 124/46 (72) 99 11/03/20 22:15 90/42 (58) 11/03/20 22:00 101/50 11/03/20 21:07 70 101/50 11/03/20 21:00 Nasal Cannula 2.0 11/03/20 20:00 98.2 70 18 101/50 (67) 100 I&O Intake and Output 11/03/20 11/04/20 19:00 07:00 Intake Total 500 ml Balance 500 ml Other 500 ml # Bowel Movements 1 Dressing: saturated Cardiovascular: RSR Respiratory: decreased breath sounds Abdomen: non-tender, present bowel sounds Extremities: no tenderness, no cyanosis Laboratory Tests Test 11/03/20 22:29 11/04/20 11:11 POC Whole Blood Glucose 251 MG/DL (74-106) H Pending Plan Problems: (1) Decubitus skin ulcer Assessment & Plan: Pt presented on admission with multiple Pressure Injuries. DTPI Sacrum(L)8cm x (W)8cm. Base of wound is purpuric with surrounding non- Blanchable erythema. Darker skin tone without erythema or induration periwound. Pt complained at site of DTPI when minimally palpated. Non-Blanchable erythema without induration R Ischium(L)7cm x (W)7.5cm. L Heel is boggy with non-Blanchable erythema. R heel is Boggy with non-blanchable erythema. Tx.Plan: Apply Moisture Barrier Paste to Sacrum. Cover with Optifoam drsg. Change every 3 days and prn.. Apply Moisture Barrier Paste to R and L Ischial tuberosities. Cover each Ischium with Optifoam drsgs. Change every 3 days and prn. Apply Cavilon Skin Barrier to R and L Heels and each Malleoli. Cover each site with Optifoam drsgs. Change every 7 days and prn. Cover Bony prominences as needed with Optifoam drsgs. Reposition at least every 2 hours or as tolerated. Off-load heels with Pillow. (2) Dyspnea (3) Respiratory distress (4) Pneumonia due to COVID-19 virus Assessment & Plan: ++ on tx id and pulm input appreciated limited movement will need to be cautions to ensure not worsening decub (5) Hypoglycemia (6) End stage renal disease on dialysis (7) Transient hypotension (8) Diastolic CHF, chronic (9) C. difficile colitis (10) Diarrhea Assessment & Plan: DAILY ESTIMATED NEEDS: Needs based on ESRD on HD 42kg 30-40 kcals/kg [id number] total kcals 1.25-1.8 g protein/kg 53-76 g total protein Fluid per MD, on HD mL/kg total fluid mLs NUTRITION DIAGNOSIS: Increased kcal and pro needs r/t renal dysfunction, wound healing as evidenced by pt w/ ESRD on HD, admitted w/ wounds, including sacral DTPI. CURRENT DIET: Renal PO DIET RECOMMENDATIONS: Maintain renal diet/ texture per [facility] ADDITIONAL RECOMMENDATIONS: 1) Daily wts, calibrated bed scale 2) Rec [facility] eval for appropriate texture 3) Add NEPRO TID w/ meals (425 kcal/ 19g pro per pack) 4) Monitor for hypoglycemia w/ variable PO 5) Wound healing: Nephrovite x 1, ZnSO4 220mg QD x 10 days Abdirahman BID as tolerated (11) ESRD (end stage renal disease) (12) Altered mental status (13) Pneumonia Kurt Flores Nov 04, 2020 16:21
--- NOTE | 2020-11-04 16:31 | Nephrology Progress Note ---
Assessment/Plan Problem List: (1) End stage renal disease on dialysis (2) C. difficile colitis (3) Transient hypotension (4) Diastolic CHF, chronic Assessment 75-year-old female presents with respiratory distress and COVID-19 infection Patient has end-stage renal disease and last dialyzed 4 days ago Patient presents with high potassium History of C. difficile colitis History of diabetes mellitus History of hypertension, presents with transient hypotension History of cardiomyopathy and diastolic CHF Plan November 04: Patient due for dialysis today. Blood pressure stable. No UF is scheduled during dialysis. Check labs tomorrow. No can panel drawn today. November 03: Patient was dialyzed yesterday. Labs reviewed. Blood pressure more stable. Due for dialysis tomorrow. No ultrafiltration is ordered. November 02: Dialyzed today. Blood pressure 95 systolic. Parameters for BP medications. Patient asymptomatic. Albumin 25% 100 cc 1 bolus dose ordered. Continue rest. Discussed with RN. November 01: Dialyzed yesterday. Labs reviewed. Medication list reviewed. Blood pressure medication adjusted. Hemodialysis tomorrow. October 31: Due for dialysis today. No labs drawn today. Continue per consultants. Will check can panel tomorrow. Medication list reviewed. Blood pressure stable. October 30: Last dialyzed October 29. Due for dialysis October 31. Continue per consultants. October 29: Patient dialyzed last evening of October 27. Serum creatinine and electrolyte much improved Continue per current treatment plan Per orders Next dialysis today October 29 Check labs in a.m. Subjective ROS Limited/Unobtainable: No Constitutional: Reports: malaise, weakness Objective Objective Last 24 Hour Vital Signs Date Time Temp Pulse Resp B/P (MAP) Pulse Ox O2 Delivery O2 Flow Rate FiO2 11/04/20 16:07 98.1 76 16 146/68 (94) 99 11/04/20 12:00 98.2 74 20 144/65 (91) 99 11/04/20 09:00 Nasal Cannula 2.0 11/04/20 08:00 98.1 72 20 126/70 (88) 99 11/04/20 04:00 99.1 74 20 139/62 (87) 99 11/04/20 00:00 97.9 72 16 124/46 (72) 99 11/03/20 22:15 90/42 (58) 11/03/20 22:00 101/50 11/03/20 21:07 70 101/50 11/03/20 21:00 Nasal Cannula 2.0 11/03/20 20:00 98.2 70 18 101/50 (67) 100 Intake and Output 11/03/20 11/04/20 18:59 06:59 Intake Total 500 ml Balance 500 ml Other 500 ml # Bowel Movements 1 Laboratory Tests 11/03/20 22:29: POC Whole Blood Glucose 251H 11/04/20 11:11: POC Whole Blood Glucose [Pending] Height (Feet): 5 Height (Inches): 1.00 Weight (Pounds): 92 General Appearance: no apparent distress Cardiovascular: normal rate Respiratory/Chest: decreased breath sounds Abdomen: distended Chris Puckett MD Nov 04, 2020 16:31
--- NOTE | 2020-11-04 16:49 | NUR ---
CASE MANAGEMENT:REVIEW SI;COVID PNEUMONIA 99.1 76 20 146/68 99% 2L NC IS;DECADRON IV MEGACE PO PROTONIX PO ZINC SULFATE PO MED SURG STATUS DCP;FROM [facility]
--- NOTE | 2020-11-04 19:46 | NUR ---
NURSE HAND-OFF: Important Events on Shift:[to be dialized today] Patient Status: [stable] Diet: [renal] Pending Orders: [BNP with HD; aml cbc, cmp, mg, phos] Pending Results/Labs:[] Pending MD notification:[] Latest Vital Signs: Temperature 98.1 , Pulse 76 , B/P 146 /68 , Respiratory Rate 16 , O2 SAT 99 , Nasal Cannula, O2 Flow Rate 2.0 . Vital Sign Comment: [] Latest Ness Fall Score: 50 Fall Risk: High Risk Safety Measures: Call light Within Reach, Bed Alarm Zone 1, Side Rails Side Rails x2, Bed position Low and Locked. Fall Precautions: Yellow Socks Yellow Gown Door Sign Patient Fall Education Report given to [ZENAIDA Holman].
[2020-11-04 20:00] VITALS: BP 145/66
[2020-11-04] MEDS: Levemir Flexpen SUBQ SCH (20:18)
--- NOTE | 2020-11-04 23:35 | NUR ---
NURSE NOTES: Hemodialysis ongoing, dialysis nurse at bedside. No s/s of acute distress.
[2020-11-05] VITALS: BP 139/69
[2020-11-05 04:00] VITALS: BP 147/77
[2020-11-05] MEDS: NovoLOG Insulin Flexpen SUBQ SCH ×4 (06:30→21:30)
[2020-11-05 06:51] LABS: BASOPHILS % (AUTO) 0.2 % (0.0-2.0); HEMATOCRIT 29.9 % (37.0-47.0); HEMOGLOBIN 9.6 G/DL (12.0-16.0); LYMPHOCYTES % (AUTO) 9.7 % (20.0-45.0); MEAN CORPUSCULAR VOLUME 97 FL (80-99); MONOCYTES % (AUTO) 6.2 % (1.0-10.0); NEUTROPHILS % (AUTO) 83.9 % (45.0-75.0); PLATELET COUNT 242 K/UL (150-450); RED BLOOD COUNT 3.09 M/UL (4.20-5.40); RED CELL DISTRIBUTION WIDTH 17.9 % (11.6-14.8)
--- NOTE | 2020-11-05 06:55 | Hematology/Onc Progress Note ---
Assessment/Plan Assessment/Plan # Anemia of chronic disease due to underlying chronic medical issues, multifactorial v Gi bleed --> Anemia workup has been ordered, rule out gi bleed --> No evidence of hemolysis is noted, peripheral smear has been reviewed. --> Hgb goal >7. Transfuse prn --> Epogen or iron at this time is not particularly indicated --> Medications have been reviewed --> low threshold for gi evaluation in case has occult + --> hgb 11-->9.6 # Covid pna cont isolation -> completed steriods --> per pulm recs # chf diastolic acute -> cards aware # Esrd on hd --> per renal # failure of thrive # dementia # dm poory controlled due to steroids Appreciate consultation and dw PCP Subjective HEENT: Denies: no symptoms, eye pain, blurred vision, tearing, double vision, ear pain, ear discharge, nose pain, nose congestion, throat pain, throat swelling, mouth pain, mouth swelling, other Respiratory: Denies: no symptoms, cough, shortness of breath, SOB with excertion, SOB at rest, sputum, wheezing, other Gastrointestinal/Abdominal: Denies: no symptoms, abdomen distended, abdominal pain, black stools, tarry stools, blood in stool, constipated, diarrhea, difficulty swallowing, nausea, poor appetite, poor fluid intake, rectal bleeding, vomiting, other Genitourinary: Denies: no symptoms, burning, discharge, frequency, flank pain, hematuria, incontinence, pain, urgency, other Endocrine: Denies: no symptoms, excessive sweating, flushing, intolerance to cold, intolerance to heat, increased hunger, increased thirst, increased urine, unexplained weight gain, unexplained weight loss, other Hematologic/Lymphatic: Denies: no symptoms, anemia, easy bleeding, easy bruising, adenopathy, other Allergies: Coded Allergies: No Known Allergies (Unverified , 09/23/20) Subjective 11/04 labs are noted, no bleeding, meds reviewed, on , seen by pulm 11/05 hd done yesterday, no bleeding, cbc is pending Objective Objective Current Medications Medications (Trade) Dose Ordered Sig/Yeimi Route PRN Reason Start Time Stop Time Status Last Admin Dose Admin Acetaminophen (Tylenol) 650 mg Q4H PRN ORAL Temp >100.5 10/27/20 14:15 11/26/20 14:14 Citalopram Hydrobromide (CeleXA) 20 mg DAILY ORAL 10/29/20 09:00 11/28/20 08:59 11/04/20 10:28 Dexamethasone Sodium Phosphate (Decadron 10mg/ ml Inj) 6 mg DAILY IV 10/28/20 09:00 11/06/20 09:01 11/04/20 10:29 Dextrose (Dextrose 50%) 25 ml Q30M PRN IV Hypoglycemia 10/28/20 20:45 01/26/21 20:44 Dextrose (Dextrose 50%) 50 ml Q30M PRN IV Hypoglycemia 10/28/20 20:45 01/26/21 20:44 Docusate Sodium (Colace) 100 mg TWICE A DAY ORAL 10/28/20 18:00 11/27/20 17:59 11/04/20 17:09 Haloperidol Lactate (Haldol) 5 mg Q6H PRN IM Agitation 10/28/20 15:45 12/12/20 15:44 Insulin Aspart (NovoLOG) BEFORE MEALS AND HS SUBQ 10/28/20 21:00 01/26/21 20:59 11/04/20 20:20 Insulin Detemir (Levemir) 10 units Q24H SUBQ 10/29/20 20:00 01/27/21 19:59 11/04/20 20:18 Megestrol Acetate (Megace) 400 mg DAILY ORAL 10/28/20 09:00 01/26/21 08:59 11/04/20 10:28 Pantoprazole (Protonix) 40 mg EVERY 12 HOURS ORAL 10/28/20 21:00 11/27/20 20:59 11/04/20 20:17 Sevelamer Carbonate (Renvela) 800 mg THREE TIMES A DAY ORAL 10/28/20 13:00 01/26/21 12:59 11/04/20 17:09 Zinc Sulfate (Zinc Sulfate) 220 mg DAILY ORAL 11/02/20 09:00 11/12/20 08:59 11/04/20 10:29 Last 24 Hour Vital Signs Date Time Temp Pulse Resp B/P (MAP) Pulse Ox O2 Delivery O2 Flow Rate FiO2 11/05/20 04:00 99.4 77 16 147/77 (100) 96 11/05/20 00:00 98.0 73 16 139/69 (92) 96 11/04/20 21:48 Nasal Cannula 2.0 11/04/20 20:00 98.4 78 16 145/66 (92) 99 11/04/20 16:07 98.1 76 16 146/68 (94) 99 11/04/20 12:00 98.2 74 20 144/65 (91) 99 11/04/20 09:00 Nasal Cannula 2.0 11/04/20 08:00 98.1 72 20 126/70 (88) 99 11/04/20 04:00 99.1 74 20 139/62 (87) 99 11/04/20 00:00 97.9 72 16 124/46 (72) 99 11/03/20 22:15 90/42 (58) 11/03/20 22:00 101/50 11/03/20 21:07 70 101/50 11/03/20 21:00 Nasal Cannula 2.0 11/03/20 20:00 98.2 70 18 101/50 (67) 100 11/03/20 16:00 97.8 67 17 131/70 (90) 98 11/03/20 14:00 129/69 11/03/20 12:00 98.9 67 17 129/69 (89) 98 11/03/20 09:00 Nasal Cannula 2.0 11/03/20 08:50 72 139/66 11/03/20 08:49 72 139/66 11/03/20 08:00 98.0 72 18 139/66 (90) 100 Intake and Output 11/04/20 11/05/20 19:00 07:00 Intake Total 740 ml Balance 740 ml Intake Oral 240 ml Other 500 ml Labs Test 11/02/20 11:28 11/02/20 17:13 11/02/20 20:29 11/03/20 04:00 POC Whole Blood Glucose 188 MG/DL (74-106) 366 MG/DL (74-106) 337 MG/DL (74-106) White Blood Count 8.9 K/UL (4.8-10.8) Red Blood Count 3.11 M/UL (4.20-5.40) Hemoglobin 9.6 G/DL (12.0-16.0) Hematocrit 29.6 % (37.0-47.0) Mean Corpuscular Volume 95 FL (80-99) Mean Corpuscular Hemoglobin 30.9 PG (27.0-31.0) Mean Corpuscular Hemoglobin Concent 32.4 G/DL (32.0-36.0) Red Cell Distribution Width 19.2 % (11.6-14.8) Platelet Count 173 K/UL (150-450) Mean Platelet Volume 7.2 FL (6.5-10.1) Neutrophils (%) (Auto) 80.2 % (45.0-75.0) Lymphocytes (%) (Auto) 10.4 % (20.0-45.0) Monocytes (%) (Auto) 8.9 % (1.0-10.0) Eosinophils (%) (Auto) 0.1 % (0.0-3.0) Basophils (%) (Auto) 0.4 % (0.0-2.0) Sodium Level 137 MMOL/L (136-145) Potassium Level 5.1 MMOL/L (3.5-5.1) Chloride Level 100 MMOL/L (98-107) Carbon Dioxide Level 26 MMOL/L (21-32) Anion Gap 12 mmol/L (5-15) Blood Urea Nitrogen 102 mg/dL (7-18) Creatinine 6.7 MG/DL (0.55-1.30) Estimat Glomerular Filtration Rate 6.0 mL/min (>60) Glucose Level 200 MG/DL (74-106) Calcium Level 8.5 MG/DL (8.5-10.1) Phosphorus Level 6.0 MG/DL (2.5-4.9) Magnesium Level 1.9 MG/DL (1.8-2.4) Total Bilirubin 0.4 MG/DL (0.2-1.0) Aspartate Amino Transf (AST/SGOT) 24 U/L (15-37) Alanine Aminotransferase (ALT/SGPT) 22 U/L (12-78) Alkaline Phosphatase 117 U/L (46-116) Total Protein 7.1 G/DL (6.4-8.2) Albumin 2.5 G/DL (3.4-5.0) Globulin 4.6 g/dL Albumin/Globulin Ratio 0.5 (1.0-2.7) Test 11/03/20 05:48 11/03/20 11:06 11/03/20 16:15 11/03/20 20:06 POC Whole Blood Glucose 223 MG/DL (74-106) 319 MG/DL (74-106) 337 MG/DL (74-106) 319 MG/DL (74-106) Test 11/03/20 22:29 11/04/20 06:12 11/04/20 11:11 11/04/20 17:16 POC Whole Blood Glucose 251 MG/DL (74-106) 154 MG/DL (74-106) Test 11/05/20 06:15 Height (Feet): 5 Height (Inches): 1.00 Weight (Pounds): 92 Timothy Lam MD Nov 05, 2020 06:55
[2020-11-05 07:14] LABS: PHOSPHORUS 7.4 MG/DL (2.5-4.9)
[2020-11-05 07:21] LABS: ALANINE AMINOTRANSFERASE 22 U/L (12-78); ALBUMIN 2.7 G/DL (3.4-5.0); ALBUMIN/GLOBULIN RATIO 0.6 (1.0-2.7); ALKALINE PHOSPHATASE 108 U/L (46-116); ANION GAP 15 mmol/L (5-15); ASPARTATE AMINO TRANSFERASE 16 U/L (15-37); BILIRUBIN,TOTAL 0.3 MG/DL (0.2-1.0); CALCIUM 8.6 MG/DL (8.5-10.1); CARBON DIOXIDE 23 MMOL/L (21-32); CHLORIDE 98 MMOL/L (98-107); CREATININE 8.4 MG/DL (0.55-1.30); SODIUM 136 MMOL/L (136-145)
--- NOTE | 2020-11-05 07:30 | NUR ---
NURSE NOTES: Patient is in bed awake and able to verbalize needs. Stable. Patient instructed to use call light for assistance, verbalized understanding. Patient denies pain or SOB at this time. Breathing is even and unlabored, on 2L oxygen via nc. Patient is in bed with VERONICA mattress in locked and lowest position with call light within reach. All safety measures provided. Will continue plan of care.
--- NOTE | 2020-11-05 07:31 | NUR ---
HAND-OFF: Report given to ZENAIDA Mccray.
[2020-11-05 08:00] VITALS: BP 128/70
[2020-11-05 08:15] LABS: BLOOD UREA NITROGEN 145 mg/dL (7-18)
--- NOTE | 2020-11-05 08:37 | Pulmonology Progress Note ---
Subjective ROS Limited/Unobtainable: No Interval Events: none major Constitutional: Denies: fever, chills HEENT: Repors: no symptoms Respiratory: Reports: no symptoms Cardiovascular: Reports: no symptoms Gastrointestinal/Abdominal: Denies: vomiting Musculoskeletal: Denies: pain Allergies: Coded Allergies: No Known Allergies (Unverified , 09/23/20) Objective Last 24 Hour Vital Signs Date Time Temp Pulse Resp B/P (MAP) Pulse Ox O2 Delivery O2 Flow Rate FiO2 11/05/20 04:00 99.4 77 16 147/77 (100) 96 11/05/20 00:00 98.0 73 16 139/69 (92) 96 11/04/20 21:48 Nasal Cannula 2.0 11/04/20 20:00 98.4 78 16 145/66 (92) 99 11/04/20 16:07 98.1 76 16 146/68 (94) 99 11/04/20 12:00 98.2 74 20 144/65 (91) 99 11/04/20 09:00 Nasal Cannula 2.0 Intake and Output 11/04/20 11/05/20 19:00 07:00 Intake Total 740 ml 30 ml Balance 740 ml 30 ml Intake Oral 240 ml Other 500 ml 30 ml # Bowel Movements 1 Objective 11/05/2020 pt asleep; s/p dialysis; saturating well on 2 lpm NC 11/04/2020 pt asleep; saturating well on 2 lpm NC; NAD 11/03/2020 saturating well on 2 lpm NC; eating in bed; NAD 11/02/2020 saturating well on 1 lpm NC; s/p dialysis 11/01/2020 saturating well on 1 lpm NC 10/31/2020 patient alert; saturating well on 1 lpm NC 10/30/2020 pt asleep; saturating well on low flow oxygen 10/29/2020 pt asleep in bed; saturating well on low flow oxygen General Appearance: cachetic HEENT: normocephalic, atraumatic Respiratory: chest wall non-tender, rhonchi - bilaterally, other - dialysis catheter Cardiovascular: normal rate, regular rhythm Abdomen: soft, non tender Laboratory Tests 11/04/20 11:11: POC Whole Blood Glucose [Pending] 11/04/20 17:16: POC Whole Blood Glucose [Pending] 11/05/20 06:15: White Blood Count 8.0, Red Blood Count 3.09L, Hemoglobin 9.6L, Hematocrit 29.9L, Mean Corpuscular Volume 97, Mean Corpuscular Hemoglobin 31.2H, Mean Corpuscular Hemoglobin Concent 32.2, Red Cell Distribution Width 17.9H, Platelet Count 242, Mean Platelet Volume 7.0, Neutrophils (%) (Auto) 83.9H, Lymphocytes (%) (Auto) 9.7L, Monocytes (%) (Auto) 6.2, Eosinophils (%) (Auto) 0.0, Basophils (%) (Auto) 0.2, Sodium Level 136, Potassium Level 7.0*H, Chloride Level 98, Carbon Dioxide Level 23, Anion Gap 15, Blood Urea Nitrogen 145H, Creatinine 8.4H, Estimat Glomerular Filtration Rate 4.6, Glucose Level 105, Calcium Level 8.6, Phosphorus Level 7.4H, Magnesium Level 2.1, Total Bilirubin 0.3, Aspartate Amino Transf (AST/SGOT) 16, Alanine Aminotransferase (ALT/SGPT) 22, Alkaline Phosphatase 108, Pro-B-Type Natriuretic Peptide [Pending], Total Protein 6.9, Albumin 2.7L, Globulin 4.2, Albumin/Globulin Ratio 0.6L Current Medications Medications (Trade) Dose Ordered Sig/Yeimi Route PRN Reason Start Time Stop Time Status Last Admin Dose Admin Acetaminophen (Tylenol) 650 mg Q4H PRN ORAL Temp >100.5 10/27/20 14:15 11/26/20 14:14 Citalopram Hydrobromide (CeleXA) 20 mg DAILY ORAL 10/29/20 09:00 11/28/20 08:59 11/04/20 10:28 Dexamethasone Sodium Phosphate (Decadron 10mg/ ml Inj) 6 mg DAILY IV 10/28/20 09:00 11/06/20 09:01 11/04/20 10:29 Dextrose (Dextrose 50%) 25 ml Q30M PRN IV Hypoglycemia 10/28/20 20:45 01/26/21 20:44 Dextrose (Dextrose 50%) 50 ml Q30M PRN IV Hypoglycemia 10/28/20 20:45 01/26/21 20:44 Docusate Sodium (Colace) 100 mg TWICE A DAY ORAL 10/28/20 18:00 11/27/20 17:59 11/04/20 17:09 Haloperidol Lactate (Haldol) 5 mg Q6H PRN IM Agitation 10/28/20 15:45 12/12/20 15:44 Insulin Aspart (NovoLOG) BEFORE MEALS AND HS SUBQ 10/28/20 21:00 01/26/21 20:59 11/04/20 20:20 Insulin Detemir (Levemir) 10 units Q24H SUBQ 10/29/20 20:00 01/27/21 19:59 11/04/20 20:18 Megestrol Acetate (Megace) 400 mg DAILY ORAL 10/28/20 09:00 01/26/21 08:59 11/04/20 10:28 Pantoprazole (Protonix) 40 mg EVERY 12 HOURS ORAL 10/28/20 21:00 11/27/20 20:59 11/04/20 20:17 Sevelamer Carbonate (Renvela) 800 mg THREE TIMES A DAY ORAL 10/28/20 13:00 01/26/21 12:59 11/04/20 17:09 Zinc Sulfate (Zinc Sulfate) 220 mg DAILY ORAL 11/02/20 09:00 11/12/20 08:59 11/04/20 10:29 Assessment/Plan Assessment/Plan 1. COVID-19 pneumonia. - Continue isolation. - wean down oxygen as tolerated while keeping SaO2 >92%; currently saturating 96% on 2 lpm NC - CXR 10/27/2020 shows multifocal infiltrate. - Continue Decadron - s/p ceftriaxone and azithromycin. - Repeat COVID-19 test 10/29/2020 positive 2. Renal failure, on dialysis. 3. Congestive heart failure. - BNP >35,000 - 2D echo EF 35-40% - management per cardio 4. Right eye conjunctivitis. 5. DVT ppx - D-dimer 3.08, CRP 16.1 -> 4.0 - 10/29/2020 venous ultrasound unremarkable - On SCD 6. hyperkalemia - per renal We will follow carefully The care of this patient was discussed with my supervising physician Time spent for this encounter was approximately 31 minutes The patient was seen and examined at bedside and all new and available data was reviewed in the patients chart. I agree with the above findings, impression, and plan. (Patient was seen earlier today. Signature timestamp does not reflect patient encounter time) Zbigniew Francis MD Nov 05, 2020 08:37 Naman Krause MD Nov 05, 2020 18:18
--- NOTE | 2020-11-05 09:00 | NUR ---
NURSE NOTES: Notified Dr. Puckett regarding potassium level 7.0, new orders for repeat potassium read back and entered. Addendum: 11/05/20 at 1111 by GOSIA TINEO RN NURSE NOTES: Paged Dr. Puckett regarding repeat potassium value of 4.4, kaamadeolate d/c. Patient is stable in bed. All safety measures provided. Will continue plan of care.
[2020-11-05] MEDS: Zinc Sulfate 220mg ORAL SCH (09:15)
[2020-11-05] MEDS: Megace 400mg/10ml Susp ORAL SCH (09:15)
[2020-11-05] MEDS: Docusate 100mg cap ORAL SCH ×2 (09:15→17:22)
[2020-11-05] MEDS: Citalopram Hydrobromide 10mg Tab ORAL SCH (09:15)
[2020-11-05] MEDS: dexAMETHasone 10mg/ml Inj IV SCH (09:15)
[2020-11-05] MEDS ORDERED: Sodium Polystyrene Sulfonate 15gm Powder ORAL SCH (10:00)
--- NOTE | 2020-11-05 10:37 | Cardiology Progress Note ---
Assessment/Plan Status Narrative 1. COVID-19 viral PNA low grade fever antiviral tx per ID 2. HFrEF, acute on chronic systolic on diastolic HF with EF 35-40% BNP severely elevated Fluid balance with HD Troponin 0.004 3. ESRD on HD Aneuric 4. HTN - under better control 5. Mitral regurgitation - mod-severe contributing to severity of HF 6. possible ASD with L to R shunt 7. Sinus tachycardia 2/2 viral PNA and fever rate controlled, in SR Low grade fever. BNP still elevated, fluid balance with HD. Echo shows decreased LV function, possible ASD. VUS negative for thrombus. Continue medical therapy. Subjective ROS Limited/Unobtainable: Yes Cardiovascular: Reports: edema Respiratory: Reports: shortness of breath Gastrointestinal/Abdominal: Reports: poor appetite Genitourinary: Reports: no symptoms Subjective Low grade fever this morning. 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 Intake and Output 11/04/20 11/05/20 19:00 07:00 Intake Total 740 ml 30 ml Balance 740 ml 30 ml Intake Oral 240 ml Other 500 ml 30 ml # Bowel Movements 1 Laboratory Tests Test 11/04/20 11:11 11/04/20 17:16 11/05/20 06:15 11/05/20 07:15 POC Whole Blood Glucose Pending Pending White Blood Count 8.0 K/UL (4.8-10.8) Red Blood Count 3.09 M/UL (4.20-5.40) L Hemoglobin 9.6 G/DL (12.0-16.0) L Hematocrit 29.9 % (37.0-47.0) L Mean Corpuscular Volume 97 FL (80-99) Mean Corpuscular Hemoglobin 31.2 PG (27.0-31.0) H Mean Corpuscular Hemoglobin Concent 32.2 G/DL (32.0-36.0) Red Cell Distribution Width 17.9 % (11.6-14.8) H Platelet Count 242 K/UL (150-450) Mean Platelet Volume 7.0 FL (6.5-10.1) Neutrophils (%) (Auto) 83.9 % (45.0-75.0) H Lymphocytes (%) (Auto) 9.7 % (20.0-45.0) L Monocytes (%) (Auto) 6.2 % (1.0-10.0) Eosinophils (%) (Auto) 0.0 % (0.0-3.0) Basophils (%) (Auto) 0.2 % (0.0-2.0) Sodium Level 136 MMOL/L (136-145) Potassium Level 7.0 MMOL/L (3.5-5.1) *H 4.4 MMOL/L (3.5-5.1) Chloride Level 98 MMOL/L (98-107) Carbon Dioxide Level 23 MMOL/L (21-32) Anion Gap 15 mmol/L (5-15) Blood Urea Nitrogen 145 mg/dL (7-18) H Creatinine 8.4 MG/DL (0.55-1.30) H Estimat Glomerular Filtration Rate 4.6 mL/min (>60) Glucose Level 105 MG/DL (74-106) Calcium Level 8.6 MG/DL (8.5-10.1) Phosphorus Level 7.4 MG/DL (2.5-4.9) H Magnesium Level 2.1 MG/DL (1.8-2.4) Total Bilirubin 0.3 MG/DL (0.2-1.0) Aspartate Amino Transf (AST/SGOT) 16 U/L (15-37) Alanine Aminotransferase (ALT/SGPT) 22 U/L (12-78) Alkaline Phosphatase 108 U/L (46-116) Pro-B-Type Natriuretic Peptide Pending Total Protein 6.9 G/DL (6.4-8.2) Albumin 2.7 G/DL (3.4-5.0) L Globulin 4.2 g/dL Albumin/Globulin Ratio 0.6 (1.0-2.7) L Pamela Chowdhury PA-C Nov 05, 2020 10:37
--- NOTE | 2020-11-05 10:57 | Nephrology Progress Note ---
Assessment/Plan Problem List: (1) End stage renal disease on dialysis (2) C. difficile colitis (3) Transient hypotension (4) Diastolic CHF, chronic Assessment 75-year-old female presents with respiratory distress and COVID-19 infection Patient has end-stage renal disease and last dialyzed 4 days ago Patient presents with high potassium History of C. difficile colitis History of diabetes mellitus History of hypertension, presents with transient hypotension History of cardiomyopathy and diastolic CHF Plan November 05: Discussed with dialysis nurse. Patient was dialyzed late last night. However today's lab results suggestive of high BUN and creatinine. Serum potassium elevated but the repeat is normal. Will hold the Kayexalate. Will attempt another dialysis and order post BUN and creatinine. Reevaluation on November 05 at 3 PM: Stat BMP done as it appears this morning's lab was prior to dialysis even though it was marked 6 AM. The stat dialysis orders will be canceled based on new lab results. Will arrange for next dialysis on November 07 unless she needs it earlier. November 04: Patient due for dialysis today. Blood pressure stable. No UF is scheduled during dialysis. Check labs tomorrow. No can panel drawn today. November 03: Patient was dialyzed yesterday. Labs reviewed. Blood pressure more stable. Due for dialysis tomorrow. No ultrafiltration is ordered. November 02: Dialyzed today. Blood pressure 95 systolic. Parameters for BP medications. Patient asymptomatic. Albumin 25% 100 cc 1 bolus dose ordered. Continue rest. Discussed with RN. November 01: Dialyzed yesterday. Labs reviewed. Medication list reviewed. Blood pressure medication adjusted. Hemodialysis tomorrow. October 31: Due for dialysis today. No labs drawn today. Continue per consultants. Will check can panel tomorrow. Medication list reviewed. Blood pressure stable. October 30: Last dialyzed October 29. Due for dialysis October 31. Continue per consultants. October 29: Patient dialyzed last evening of October 27. Serum creatinine and electrolyte much improved Continue per current treatment plan Per orders Next dialysis today October 29 Check labs in a.m. Subjective ROS Limited/Unobtainable: No Constitutional: Reports: malaise Objective Objective Last 24 Hour Vital Signs Date Time Temp Pulse Resp B/P (MAP) Pulse Ox O2 Delivery O2 Flow Rate FiO2 11/05/20 04:00 99.4 77 16 147/77 (100) 96 11/05/20 00:00 98.0 73 16 139/69 (92) 96 11/04/20 21:48 Nasal Cannula 2.0 11/04/20 20:00 98.4 78 16 145/66 (92) 99 11/04/20 16:07 98.1 76 16 146/68 (94) 99 11/04/20 12:00 98.2 74 20 144/65 (91) 99 Intake and Output 11/04/20 11/05/20 19:00 07:00 Intake Total 740 ml 30 ml Balance 740 ml 30 ml Intake Oral 240 ml Other 500 ml 30 ml # Bowel Movements 1 Current Medications Medications (Trade) Dose Ordered Sig/Yeimi Route PRN Reason Start Time Stop Time Status Last Admin Dose Admin Acetaminophen (Tylenol) 650 mg Q4H PRN ORAL Temp >100.5 10/27/20 14:15 11/26/20 14:14 Citalopram Hydrobromide (CeleXA) 20 mg DAILY ORAL 10/29/20 09:00 11/28/20 08:59 11/05/20 09:15 Dextrose (Dextrose 50%) 25 ml Q30M PRN IV Hypoglycemia 10/28/20 20:45 01/26/21 20:44 Dextrose (Dextrose 50%) 50 ml Q30M PRN IV Hypoglycemia 10/28/20 20:45 01/26/21 20:44 Docusate Sodium (Colace) 100 mg TWICE A DAY ORAL 10/28/20 18:00 11/27/20 17:59 11/05/20 09:15 Haloperidol Lactate (Haldol) 5 mg Q6H PRN IM Agitation 10/28/20 15:45 12/12/20 15:44 Insulin Aspart (NovoLOG) BEFORE MEALS AND HS SUBQ 10/28/20 21:00 01/26/21 20:59 11/04/20 20:20 Insulin Detemir (Levemir) 10 units Q24H SUBQ 10/29/20 20:00 01/27/21 19:59 11/04/20 20:18 Megestrol Acetate (Megace) 400 mg DAILY ORAL 10/28/20 09:00 01/26/21 08:59 11/05/20 09:15 Pantoprazole (Protonix) 40 mg EVERY 12 HOURS ORAL 10/28/20 21:00 11/27/20 20:59 11/05/20 09:14 Sevelamer Carbonate (Renvela) 800 mg THREE TIMES A DAY ORAL 10/28/20 13:00 01/26/21 12:59 11/05/20 09:15 Zinc Sulfate (Zinc Sulfate) 220 mg DAILY ORAL 11/02/20 09:00 11/12/20 08:59 11/05/20 09:15 Laboratory Tests 11/04/20 11:11: POC Whole Blood Glucose [Pending] 11/04/20 17:16: POC Whole Blood Glucose [Pending] 11/05/20 06:15: White Blood Count 8.0, Red Blood Count 3.09L, Hemoglobin 9.6L, Hematocrit 29.9L, Mean Corpuscular Volume 97, Mean Corpuscular Hemoglobin 31.2H, Mean Corpuscular Hemoglobin Concent 32.2, Red Cell Distribution Width 17.9H, Platelet Count 242, Mean Platelet Volume 7.0, Neutrophils (%) (Auto) 83.9H, Lymphocytes (%) (Auto) 9.7L, Monocytes (%) (Auto) 6.2, Eosinophils (%) (Auto) 0.0, Basophils (%) (Auto) 0.2, Sodium Level 136, Potassium Level 7.0*H, Chloride Level 98, Carbon Dioxide Level 23, Anion Gap 15, Blood Urea Nitrogen 145H, Creatinine 8.4H, Estimat Glomerular Filtration Rate 4.6, Glucose Level 105, Calcium Level 8.6, Phosphorus Level 7.4H, Magnesium Level 2.1, Total Bilirubin 0.3, Aspartate Amino Transf (AST/SGOT) 16, Alanine Aminotransferase (ALT/SGPT) 22, Alkaline Phosphatase 108, Pro-B-Type Natriuretic Peptide [Pending], Total Protein 6.9, Albumin 2.7L, Globulin 4.2, Albumin/Globulin Ratio 0.6L 11/05/20 07:15: Potassium Level 4.4 Height (Feet): 5 Height (Inches): 1.00 Weight (Pounds): 92 General Appearance: no apparent distress, lethargic Objective No change Chris Puckett MD Nov 05, 2020 10:57
--- NOTE | 2020-11-05 11:02 | General Progress Note ---
Subjective Allergies: Coded Allergies: No Known Allergies (Unverified , 09/23/20) Subjective awake eating better blood sugar are improving Objective Last 24 Hour Vital Signs Date Time Temp Pulse Resp B/P (MAP) Pulse Ox O2 Delivery O2 Flow Rate FiO2 11/05/20 04:00 99.4 77 16 147/77 (100) 96 11/05/20 00:00 98.0 73 16 139/69 (92) 96 11/04/20 21:48 Nasal Cannula 2.0 11/04/20 20:00 98.4 78 16 145/66 (92) 99 11/04/20 16:07 98.1 76 16 146/68 (94) 99 11/04/20 12:00 98.2 74 20 144/65 (91) 99 Intake and Output 11/04/20 11/05/20 19:00 07:00 Intake Total 740 ml 30 ml Balance 740 ml 30 ml Intake Oral 240 ml Other 500 ml 30 ml # Bowel Movements 1 Laboratory Tests 11/04/20 11:11: POC Whole Blood Glucose [Pending] 11/04/20 17:16: POC Whole Blood Glucose [Pending] 11/05/20 06:15: White Blood Count 8.0, Red Blood Count 3.09L, Hemoglobin 9.6L, Hematocrit 29.9L, Mean Corpuscular Volume 97, Mean Corpuscular Hemoglobin 31.2H, Mean Corpuscular Hemoglobin Concent 32.2, Red Cell Distribution Width 17.9H, Platelet Count 242, Mean Platelet Volume 7.0, Neutrophils (%) (Auto) 83.9H, Lymphocytes (%) (Auto) 9.7L, Monocytes (%) (Auto) 6.2, Eosinophils (%) (Auto) 0.0, Basophils (%) (Auto) 0.2, Sodium Level 136, Potassium Level 7.0*H, Chloride Level 98, Carbon Dioxide Level 23, Anion Gap 15, Blood Urea Nitrogen 145H, Creatinine 8.4H, Estimat Glomerular Filtration Rate 4.6, Glucose Level 105, Calcium Level 8.6, Phosphorus Level 7.4H, Magnesium Level 2.1, Total Bilirubin 0.3, Aspartate Amino Transf (AST/SGOT) 16, Alanine Aminotransferase (ALT/SGPT) 22, Alkaline Phosphatase 108, Pro-B-Type Natriuretic Peptide [Pending], Total Protein 6.9, Albumin 2.7L, Globulin 4.2, Albumin/Globulin Ratio 0.6L 11/05/20 07:15: Potassium Level 4.4 Height (Feet): 5 Height (Inches): 1.00 Weight (Pounds): 92 General Appearance: alert EENT: PERRL/EOMI Neck: supple Cardiovascular: regular rhythm Respiratory/Chest: crackles/rales Abdomen: non tender, soft Edema: trace edema Assessment/Plan Status: stable Assessment/Plan: 1 sob 2 covid pna cont isolation 3 chf diastolic acute 4 esrd on hd 5 failure of thrive 6 dementia 7 dm poory controlled due to steroids 8 hypotension 9 hyperkalemia rpt ok add levamier and high dose short insulin pt/ot eval dw pt pt is very weak iv abx hd cardio and pulmonary consult cont current tx Cesar Swanson MD Nov 05, 2020 11:02
[2020-11-05 12:00] VITALS: BP 145/64
--- NOTE | 2020-11-05 12:31 | NUR ---
RD ASSESSMENT & RECOMMENDATIONS SEE CARE ACTIVITY FOR COMPLETE ASSESSMENT DAILY ESTIMATED NEEDS: Needs based on ESRD on HD 42kg 30-40 kcals/kg 9476-8148 total kcals 1.25-1.8 g protein/kg 53-76 g total protein Fluid per MD, on HD NUTRITION DIAGNOSIS: Increased kcal and pro needs r/t renal dysfunction, wound healing as evidenced by pt w/ ESRD on HD, admitted w/ wounds, including sacral DTPI. CURRENT DIET:Renal diet PO DIET RECOMMENDATIONS: Maintain renal diet/ texture per MAP COMPILER ADDITIONAL RECOMMENDATIONS: 1) Daily wts, calibrated bed scale 2) Rec MAP COMPILER eval for appropriate texture 3) Add NEPRO TID w/ meals (425 kcal/ 19g pro per pack) 4) Monitor for hypoglycemia w/ variable PO 5) Wound healing: Nephrovite x 1, ZnSO4 220mg QD x 10 days Abdirahman BID as tolerated .
--- NOTE | 2020-11-05 12:42 | Infectious Diseases Prog Note ---
Assessment/Plan Assessment/Plan A 1. COVID-19 pneumonia s/p ivermectin 2. Renal failure, on dialysis. 3. Congestive heart failure. 4. Right eye conjunctivitis 5. hypertension 6. Hypoxemia P 1. Finished Decadron course 2. continue isolation Subjective ROS Limited/Unobtainable: Yes Respiratory: Reports: no symptoms Musculoskeletal: Reports: no symptoms Allergies: Coded Allergies: No Known Allergies (Unverified , 09/23/20) Objective Last 24 Hour Vital Signs Date Time Temp Pulse Resp B/P (MAP) Pulse Ox O2 Delivery O2 Flow Rate FiO2 11/05/20 09:00 Nasal Cannula 2.0 11/05/20 08:00 98.4 71 18 128/70 (89) 97 11/05/20 04:00 99.4 77 16 147/77 (100) 96 11/05/20 00:00 98.0 73 16 139/69 (92) 96 11/04/20 21:48 Nasal Cannula 2.0 11/04/20 20:00 98.4 78 16 145/66 (92) 99 11/04/20 16:07 98.1 76 16 146/68 (94) 99 Height (Feet): 5 Height (Inches): 1.00 Weight (Pounds): 92 General Appearance: no acute distress HEENT: mucous membranes moist Respiratory/Chest: lungs clear, other - oxygen by nasal cannula Cardiovascular: normal rate Abdomen: soft, non tender Extremities: no edema Neurologic/Psychiatric: alert, responsive Musculoskeletal: atrophy Laboratory Tests Test 11/04/20 17:16 11/05/20 06:15 11/05/20 07:15 POC Whole Blood Glucose Pending White Blood Count 8.0 K/UL (4.8-10.8) Red Blood Count 3.09 M/UL (4.20-5.40) L Hemoglobin 9.6 G/DL (12.0-16.0) L Hematocrit 29.9 % (37.0-47.0) L Mean Corpuscular Volume 97 FL (80-99) Mean Corpuscular Hemoglobin 31.2 PG (27.0-31.0) H Mean Corpuscular Hemoglobin Concent 32.2 G/DL (32.0-36.0) Red Cell Distribution Width 17.9 % (11.6-14.8) H Platelet Count 242 K/UL (150-450) Mean Platelet Volume 7.0 FL (6.5-10.1) Neutrophils (%) (Auto) 83.9 % (45.0-75.0) H Lymphocytes (%) (Auto) 9.7 % (20.0-45.0) L Monocytes (%) (Auto) 6.2 % (1.0-10.0) Eosinophils (%) (Auto) 0.0 % (0.0-3.0) Basophils (%) (Auto) 0.2 % (0.0-2.0) Sodium Level 136 MMOL/L (136-145) Potassium Level 7.0 MMOL/L (3.5-5.1) *H 4.4 MMOL/L (3.5-5.1) Chloride Level 98 MMOL/L (98-107) Carbon Dioxide Level 23 MMOL/L (21-32) Anion Gap 15 mmol/L (5-15) Blood Urea Nitrogen 145 mg/dL (7-18) H Creatinine 8.4 MG/DL (0.55-1.30) H Estimat Glomerular Filtration Rate 4.6 mL/min (>60) Glucose Level 105 MG/DL (74-106) Calcium Level 8.6 MG/DL (8.5-10.1) Phosphorus Level 7.4 MG/DL (2.5-4.9) H Magnesium Level 2.1 MG/DL (1.8-2.4) Total Bilirubin 0.3 MG/DL (0.2-1.0) Aspartate Amino Transf (AST/SGOT) 16 U/L (15-37) Alanine Aminotransferase (ALT/SGPT) 22 U/L (12-78) Alkaline Phosphatase 108 U/L (46-116) Pro-B-Type Natriuretic Peptide Pending Total Protein 6.9 G/DL (6.4-8.2) Albumin 2.7 G/DL (3.4-5.0) L Globulin 4.2 g/dL Albumin/Globulin Ratio 0.6 (1.0-2.7) L Current Medications Medications (Trade) Dose Ordered Sig/Yeimi Route PRN Reason Start Time Stop Time Status Last Admin Dose Admin Acetaminophen (Tylenol) 650 mg Q4H PRN ORAL Temp >100.5 10/27/20 14:15 11/26/20 14:14 Citalopram Hydrobromide (CeleXA) 20 mg DAILY ORAL 10/29/20 09:00 11/28/20 08:59 11/05/20 09:15 Dextrose (Dextrose 50%) 25 ml Q30M PRN IV Hypoglycemia 10/28/20 20:45 01/26/21 20:44 Dextrose (Dextrose 50%) 50 ml Q30M PRN IV Hypoglycemia 10/28/20 20:45 01/26/21 20:44 Docusate Sodium (Colace) 100 mg TWICE A DAY ORAL 10/28/20 18:00 11/27/20 17:59 11/05/20 09:15 Haloperidol Lactate (Haldol) 5 mg Q6H PRN IM Agitation 10/28/20 15:45 12/12/20 15:44 Insulin Aspart (NovoLOG) BEFORE MEALS AND HS SUBQ 10/28/20 21:00 01/26/21 20:59 11/05/20 11:30 Insulin Detemir (Levemir) 10 units Q24H SUBQ 10/29/20 20:00 01/27/21 19:59 11/04/20 20:18 Megestrol Acetate (Megace) 400 mg DAILY ORAL 10/28/20 09:00 01/26/21 08:59 11/05/20 09:15 Pantoprazole (Protonix) 40 mg EVERY 12 HOURS ORAL 10/28/20 21:00 11/27/20 20:59 11/05/20 09:14 Sevelamer Carbonate (Renvela) 800 mg THREE TIMES A DAY ORAL 10/28/20 13:00 01/26/21 12:59 11/05/20 12:24 Zinc Sulfate (Zinc Sulfate) 220 mg DAILY ORAL 11/02/20 09:00 11/12/20 08:59 11/05/20 09:15 Aryan Darby MD Nov 05, 2020 12:42
--- NOTE | 2020-11-05 13:48 | Surgery Progress Note ---
Surgery Progress Note Subjective Symptoms: improved, tolerating diet, passing flatus Objective Last 24 Hour Vital Signs Date Time Temp Pulse Resp B/P (MAP) Pulse Ox O2 Delivery O2 Flow Rate FiO2 11/05/20 12:00 99.9 74 18 145/64 (91) 96 11/05/20 09:00 Nasal Cannula 2.0 11/05/20 08:00 98.4 71 18 128/70 (89) 97 11/05/20 04:00 99.4 77 16 147/77 (100) 96 11/05/20 00:00 98.0 73 16 139/69 (92) 96 11/04/20 21:48 Nasal Cannula 2.0 11/04/20 20:00 98.4 78 16 145/66 (92) 99 11/04/20 16:07 98.1 76 16 146/68 (94) 99 I&O Intake and Output 11/04/20 11/05/20 19:00 07:00 Intake Total 740 ml 30 ml Balance 740 ml 30 ml Intake Oral 240 ml Other 500 ml 30 ml # Bowel Movements 1 Dressing: saturated Cardiovascular: RSR Respiratory: decreased breath sounds Abdomen: non-tender, present bowel sounds Extremities: no tenderness, no cyanosis Laboratory Tests Test 11/04/20 17:16 11/05/20 06:15 11/05/20 07:15 POC Whole Blood Glucose Pending White Blood Count 8.0 K/UL (4.8-10.8) Red Blood Count 3.09 M/UL (4.20-5.40) L Hemoglobin 9.6 G/DL (12.0-16.0) L Hematocrit 29.9 % (37.0-47.0) L Mean Corpuscular Volume 97 FL (80-99) Mean Corpuscular Hemoglobin 31.2 PG (27.0-31.0) H Mean Corpuscular Hemoglobin Concent 32.2 G/DL (32.0-36.0) Red Cell Distribution Width 17.9 % (11.6-14.8) H Platelet Count 242 K/UL (150-450) Mean Platelet Volume 7.0 FL (6.5-10.1) Neutrophils (%) (Auto) 83.9 % (45.0-75.0) H Lymphocytes (%) (Auto) 9.7 % (20.0-45.0) L Monocytes (%) (Auto) 6.2 % (1.0-10.0) Eosinophils (%) (Auto) 0.0 % (0.0-3.0) Basophils (%) (Auto) 0.2 % (0.0-2.0) Sodium Level 136 MMOL/L (136-145) Potassium Level 7.0 MMOL/L (3.5-5.1) *H 4.4 MMOL/L (3.5-5.1) Chloride Level 98 MMOL/L (98-107) Carbon Dioxide Level 23 MMOL/L (21-32) Anion Gap 15 mmol/L (5-15) Blood Urea Nitrogen 145 mg/dL (7-18) H Creatinine 8.4 MG/DL (0.55-1.30) H Estimat Glomerular Filtration Rate 4.6 mL/min (>60) Glucose Level 105 MG/DL (74-106) Calcium Level 8.6 MG/DL (8.5-10.1) Phosphorus Level 7.4 MG/DL (2.5-4.9) H Magnesium Level 2.1 MG/DL (1.8-2.4) Total Bilirubin 0.3 MG/DL (0.2-1.0) Aspartate Amino Transf (AST/SGOT) 16 U/L (15-37) Alanine Aminotransferase (ALT/SGPT) 22 U/L (12-78) Alkaline Phosphatase 108 U/L (46-116) Pro-B-Type Natriuretic Peptide Pending Total Protein 6.9 G/DL (6.4-8.2) Albumin 2.7 G/DL (3.4-5.0) L Globulin 4.2 g/dL Albumin/Globulin Ratio 0.6 (1.0-2.7) L Plan Problems: (1) Decubitus skin ulcer Assessment & Plan: Pt presented on admission with multiple Pressure Injuries. DTPI Sacrum(L)8cm x (W)8cm. Base of wound is purpuric with surrounding non- Blanchable erythema. Darker skin tone without erythema or induration periwound. Pt complained at site of DTPI when minimally palpated. Non-Blanchable erythema without induration R Ischium(L)7cm x (W)7.5cm. L Heel is boggy with non-Blanchable erythema. R heel is Boggy with non-blanchable erythema. Tx.Plan: Apply Moisture Barrier Paste to Sacrum. Cover with Optifoam drsg. Change every 3 days and prn.. Apply Moisture Barrier Paste to R and L Ischial tuberosities. Cover each Ischium with Optifoam drsgs. Change every 3 days and prn. Apply Cavilon Skin Barrier to R and L Heels and each Malleoli. Cover each site with Optifoam drsgs. Change every 7 days and prn. Cover Bony prominences as needed with Optifoam drsgs. Reposition at least every 2 hours or as tolerated. Off-load heels with Pillow. (2) Dyspnea (3) Respiratory distress (4) Pneumonia due to COVID-19 virus Assessment & Plan: ++ on tx id and pulm input appreciated limited movement will need to be cautions to ensure not worsening decub (5) Hypoglycemia (6) End stage renal disease on dialysis (7) Transient hypotension (8) Diastolic CHF, chronic (9) C. difficile colitis (10) Diarrhea Assessment & Plan: DAILY ESTIMATED NEEDS: Needs based on ESRD on HD 42kg 30-40 kcals/kg 5588-1659 total kcals 1.25-1.8 g protein/kg 53-76 g total protein Fluid per MD, on HD NUTRITION DIAGNOSIS: Increased kcal and pro needs r/t renal dysfunction, wound healing as evidenced by pt w/ ESRD on HD, admitted w/ wounds, including sacral DTPI. CURRENT DIET:Renal diet PO DIET RECOMMENDATIONS: Maintain renal diet/ texture per BEVERAGE DISTILLER ADDITIONAL RECOMMENDATIONS: 1) Daily wts, calibrated bed scale 2) Rec BEVERAGE DISTILLER eval for appropriate texture 3) Add NEPRO TID w/ meals (425 kcal/ 19g pro per pack) 4) Monitor for hypoglycemia w/ variable PO 5) Wound healing: Nephrovite x 1, ZnSO4 220mg QD x 10 days Abdirahman BID as tolerated (11) ESRD (end stage renal disease) (12) Altered mental status (13) Pneumonia Kurt Flores Nov 05, 2020 13:48
[2020-11-05 15:02] LABS: CALCIUM 8.9 MG/DL (8.5-10.1); CREATININE 4.6 MG/DL (0.55-1.30); POTASSIUM 4.4 MMOL/L (3.5-5.1)
[2020-11-05 16:00] VITALS: BP 144/64
--- NOTE | 2020-11-05 19:15 | NUR ---
NURSE HAND-OFF: Important Events on Shift:[bs checks] Patient Status: [stable Diet: [renal Pending Orders: [n/a Pending Results/Labs:n/a Pending MD notification:n/a Latest Vital Signs: Temperature 100.0 , Pulse 72 , B/P 144 /64 , Respiratory Rate 18 , O2 SAT 96 , Nasal Cannula, O2 Flow Rate 2.0 . Vital Sign Comment: [n/a Latest Ness Fall Score: 50 Fall Risk: High Risk Safety Measures: Call light Within Reach, Bed Alarm Zone 1, Side Rails Side Rails x2, Bed position Low and Locked. Fall Precautions: Yellow Socks Yellow Gown Door Sign Patient Fall Education Report given to [Clara ESTEVEZ.
[2020-11-05 20:00] VITALS: BP 153/70
--- NOTE | 2020-11-05 20:00 | NUR ---
NURSE NOTES: received patient awake in bed, able to follow commands, passive. IV access patent, dressing dry and intact. Bed low and locked.
[2020-11-05] MEDS: Levemir Flexpen SUBQ SCH (21:28)
[2020-11-06] VITALS: BP 140/64
[2020-11-06 04:00] VITALS: BP 156/70
[2020-11-06] MEDS: NovoLOG Insulin Flexpen SUBQ SCH ×3 (05:44→20:19)
--- NOTE | 2020-11-06 06:37 | Hematology/Onc Progress Note ---
Assessment/Plan Assessment/Plan # Anemia of chronic disease due to underlying chronic medical issues, multifactorial v Gi bleed --> Anemia workup has been ordered, rule out gi bleed --> No evidence of hemolysis is noted, peripheral smear has been reviewed. --> Hgb goal >7. Transfuse prn --> Epogen or iron at this time is not particularly indicated --> Medications have been reviewed --> low threshold for gi evaluation in case has occult + --> hgb 11-->9.6 # Covid pna cont isolation -> completed steriods --> per pulm recs # chf diastolic acute -> cards aware # Esrd on hd --> per renal # failure of thrive # dementia # dm poory controlled due to steroids Appreciate consultation and dw PCP Subjective HEENT: Denies: no symptoms, eye pain, blurred vision, tearing, double vision, ear pain, ear discharge, nose pain, nose congestion, throat pain, throat swelling, mouth pain, mouth swelling, other Cardiovascular: Denies: no symptoms, chest pain, edema, irregular heart rate, lightheadedness, palpitations, syncope, other Respiratory: Denies: no symptoms, cough, shortness of breath, SOB with excertion, SOB at rest, sputum, wheezing, other Gastrointestinal/Abdominal: Denies: no symptoms, abdomen distended, abdominal pain, black stools, tarry stools, blood in stool, constipated, diarrhea, difficulty swallowing, nausea, poor appetite, poor fluid intake, rectal bleeding, vomiting, other Neurologic/Psychiatric: Denies: no symptoms, anxiety, depressed, emotional problems, headache, numbness, paresthesia, pre-existing deficit, seizure, tingling, tremors, weakness, other Hematologic/Lymphatic: Denies: no symptoms, anemia, easy bleeding, easy bruising, adenopathy, other Allergies: Coded Allergies: No Known Allergies (Unverified , 09/23/20) Subjective 11/04 labs are noted, no bleeding, meds reviewed, on , seen by pulm 11/05 hd done yesterday, no bleeding, cbc is pending 11/06 awake, alert, labs are pending, reviewed senior financial consultant recs Objective Objective Current Medications Medications (Trade) Dose Ordered Sig/Yeimi Route PRN Reason Start Time Stop Time Status Last Admin Dose Admin Acetaminophen (Tylenol) 650 mg Q4H PRN ORAL Temp >100.5 10/27/20 14:15 11/26/20 14:14 11/05/20 17:22 Citalopram Hydrobromide (CeleXA) 20 mg DAILY ORAL 10/29/20 09:00 11/28/20 08:59 11/05/20 09:15 Dextrose (Dextrose 50%) 25 ml Q30M PRN IV Hypoglycemia 10/28/20 20:45 01/26/21 20:44 Dextrose (Dextrose 50%) 50 ml Q30M PRN IV Hypoglycemia 10/28/20 20:45 01/26/21 20:44 Docusate Sodium (Colace) 100 mg TWICE A DAY ORAL 10/28/20 18:00 11/27/20 17:59 11/05/20 17:22 Haloperidol Lactate (Haldol) 5 mg Q6H PRN IM Agitation 10/28/20 15:45 12/12/20 15:44 Insulin Aspart (NovoLOG) BEFORE MEALS AND HS SUBQ 10/28/20 21:00 01/26/21 20:59 11/06/20 05:44 Insulin Detemir (Levemir) 10 units Q24H SUBQ 10/29/20 20:00 01/27/21 19:59 11/05/20 21:28 Megestrol Acetate (Megace) 400 mg DAILY ORAL 10/28/20 09:00 01/26/21 08:59 11/05/20 09:15 Pantoprazole (Protonix) 40 mg EVERY 12 HOURS ORAL 10/28/20 21:00 11/27/20 20:59 11/05/20 21:47 Sevelamer Carbonate (Renvela) 800 mg THREE TIMES A DAY ORAL 10/28/20 13:00 01/26/21 12:59 11/05/20 17:22 Zinc Sulfate (Zinc Sulfate) 220 mg DAILY ORAL 11/02/20 09:00 11/12/20 08:59 11/05/20 09:15 Last 24 Hour Vital Signs Date Time Temp Pulse Resp B/P (MAP) Pulse Ox O2 Delivery O2 Flow Rate FiO2 11/06/20 04:00 97.3 80 20 156/70 (98) 95 11/06/20 00:00 97.7 68 20 140/64 (89) 96 11/05/20 23:55 Nasal Cannula 2.0 11/05/20 20:00 98.5 68 22 153/70 (97) 96 11/05/20 17:52 100.0 11/05/20 16:00 99.1 72 18 144/64 (90) 96 11/05/20 12:00 99.9 74 18 145/64 (91) 96 11/05/20 09:00 Nasal Cannula 2.0 11/05/20 08:00 98.4 71 18 128/70 (89) 97 11/05/20 04:00 99.4 77 16 147/77 (100) 96 11/05/20 00:00 98.0 73 16 139/69 (92) 96 11/04/20 21:48 Nasal Cannula 2.0 11/04/20 20:00 98.4 78 16 145/66 (92) 99 11/04/20 16:07 98.1 76 16 146/68 (94) 99 11/04/20 12:00 98.2 74 20 144/65 (91) 99 11/04/20 09:00 Nasal Cannula 2.0 11/04/20 08:00 98.1 72 20 126/70 (88) 99 Intake and Output 11/05/20 11/06/20 19:00 07:00 Intake Total 150 ml Balance 150 ml Intake Oral 150 ml Labs Test 11/03/20 11:06 11/03/20 16:15 11/03/20 20:06 11/03/20 22:29 POC Whole Blood Glucose 319 MG/DL (74-106) 337 MG/DL (74-106) 319 MG/DL (74-106) 251 MG/DL (74-106) Test 11/04/20 06:12 11/04/20 11:11 11/04/20 17:16 11/05/20 06:15 POC Whole Blood Glucose 154 MG/DL (74-106) White Blood Count 8.0 K/UL (4.8-10.8) Red Blood Count 3.09 M/UL (4.20-5.40) Hemoglobin 9.6 G/DL (12.0-16.0) Hematocrit 29.9 % (37.0-47.0) Mean Corpuscular Volume 97 FL (80-99) Mean Corpuscular Hemoglobin 31.2 PG (27.0-31.0) Mean Corpuscular Hemoglobin Concent 32.2 G/DL (32.0-36.0) Red Cell Distribution Width 17.9 % (11.6-14.8) Platelet Count 242 K/UL (150-450) Mean Platelet Volume 7.0 FL (6.5-10.1) Neutrophils (%) (Auto) 83.9 % (45.0-75.0) Lymphocytes (%) (Auto) 9.7 % (20.0-45.0) Monocytes (%) (Auto) 6.2 % (1.0-10.0) Eosinophils (%) (Auto) 0.0 % (0.0-3.0) Basophils (%) (Auto) 0.2 % (0.0-2.0) Sodium Level 136 MMOL/L (136-145) Potassium Level 7.0 MMOL/L (3.5-5.1) Chloride Level 98 MMOL/L (98-107) Carbon Dioxide Level 23 MMOL/L (21-32) Anion Gap 15 mmol/L (5-15) Blood Urea Nitrogen 145 mg/dL (7-18) Creatinine 8.4 MG/DL (0.55-1.30) Estimat Glomerular Filtration Rate 4.6 mL/min (>60) Glucose Level 105 MG/DL (74-106) Calcium Level 8.6 MG/DL (8.5-10.1) Phosphorus Level 7.4 MG/DL (2.5-4.9) Magnesium Level 2.1 MG/DL (1.8-2.4) Total Bilirubin 0.3 MG/DL (0.2-1.0) Aspartate Amino Transf (AST/SGOT) 16 U/L (15-37) Alanine Aminotransferase (ALT/SGPT) 22 U/L (12-78) Alkaline Phosphatase 108 U/L (46-116) Pro-B-Type Natriuretic Peptide > 63848.0 pg/mL (0-125) Total Protein 6.9 G/DL (6.4-8.2) Albumin 2.7 G/DL (3.4-5.0) Globulin 4.2 g/dL Albumin/Globulin Ratio 0.6 (1.0-2.7) Test 11/05/20 07:15 Sodium Level 144 MMOL/L (136-145) Potassium Level 4.4 MMOL/L (3.5-5.1) Chloride Level 106 MMOL/L (98-107) Carbon Dioxide Level 30 MMOL/L (21-32) Anion Gap 8 mmol/L (5-15) Blood Urea Nitrogen 61 mg/dL (7-18) Creatinine 4.6 MG/DL (0.55-1.30) Estimat Glomerular Filtration Rate 9.3 mL/min (>60) Glucose Level 112 MG/DL (74-106) Calcium Level 8.9 MG/DL (8.5-10.1) Height (Feet): 5 Height (Inches): 1.00 Weight (Pounds): 92 Objective Gen: nad Pulm: ctab CV: rrr Abd: soft, nt, nd ext: no cce Timothy Lam MD Nov 06, 2020 06:37
[2020-11-06 08:00] VITALS: BP 165/82
--- NOTE | 2020-11-06 08:23 | NUR ---
NURSE NOTES: Received report from Raysa Mary RN. Patient in semi-Mancia's position, awake and alert, watching television, bed in lowest position, call light within reach, side rails up x 3, wheels locked, soft care mattress in place, on 2 liters nasal cannula, purewick in place, in no apparent distress.
[2020-11-06 09:04] LABS: BASOPHILS % (AUTO) 0.6 % (0.0-2.0); EOSINOPHILS % (AUTO) 0.4 % (0.0-3.0); HEMATOCRIT 31.6 % (37.0-47.0); HEMOGLOBIN 9.9 G/DL (12.0-16.0); LYMPHOCYTES % (AUTO) 13.3 % (20.0-45.0); MEAN CORPUSCULAR VOLUME 99 FL (80-99); NEUTROPHILS % (AUTO) 70.6 % (45.0-75.0); PLATELET COUNT 238 K/UL (150-450); RED CELL DISTRIBUTION WIDTH 18.4 % (11.6-14.8); WHITE BLOOD COUNT 9.1 K/UL (4.8-10.8)
[2020-11-06 09:19] LABS: ALBUMIN 2.5 G/DL (3.4-5.0); ALBUMIN/GLOBULIN RATIO 0.5 (1.0-2.7); BILIRUBIN,TOTAL 0.4 MG/DL (0.2-1.0); CALCIUM 8.9 MG/DL (8.5-10.1); CREATININE 5.8 MG/DL (0.55-1.30); PHOSPHORUS 5.8 MG/DL (2.5-4.9); POTASSIUM 5.1 MMOL/L (3.5-5.1)
[2020-11-06] MEDS: Docusate 100mg cap ORAL SCH ×2 (09:26→18:20)
[2020-11-06] MEDS: Zinc Sulfate 220mg ORAL SCH (09:26)
[2020-11-06] MEDS: Megace 400mg/10ml Susp ORAL SCH (09:26)
[2020-11-06] MEDS: Citalopram Hydrobromide 10mg Tab ORAL SCH (09:26)
--- NOTE | 2020-11-06 10:49 | General Progress Note ---
Subjective Allergies: Coded Allergies: No Known Allergies (Unverified , 09/23/20) Subjective awake eating better blood sugar are improving Objective Last 24 Hour Vital Signs Date Time Temp Pulse Resp B/P (MAP) Pulse Ox O2 Delivery O2 Flow Rate FiO2 11/06/20 08:00 98.1 82 19 165/82 (109) 95 11/06/20 04:00 97.3 80 20 156/70 (98) 95 11/06/20 00:00 97.7 68 20 140/64 (89) 96 11/05/20 23:55 Nasal Cannula 2.0 11/05/20 20:00 98.5 68 22 153/70 (97) 96 11/05/20 17:52 100.0 11/05/20 16:00 99.1 72 18 144/64 (90) 96 11/05/20 12:00 99.9 74 18 145/64 (91) 96 Intake and Output 11/05/20 11/06/20 19:00 07:00 Intake Total 150 ml Balance 150 ml Intake Oral 150 ml Laboratory Tests 11/06/20 08:35: White Blood Count 9.1, Red Blood Count 3.20L, Hemoglobin 9.9L, Hematocrit 31.6L, Mean Corpuscular Volume 99, Mean Corpuscular Hemoglobin 31.0, Mean Corpuscular Hemoglobin Concent 31.4L, Red Cell Distribution Width 18.4H, Platelet Count 238, Mean Platelet Volume 7.4, Neutrophils (%) (Auto) 70.6, Lymphocytes (%) (Auto) 13.3L, Monocytes (%) (Auto) 15.0H, Eosinophils (%) (Auto) 0.4, Basophils (%) (Auto) 0.6, Sodium Level 144, Potassium Level 5.1, Chloride Level 106, Carbon Dioxide Level 29, Anion Gap 9, Blood Urea Nitrogen 91H, Creatinine 5.8H, Estimat Glomerular Filtration Rate 7.1, Glucose Level 145H, Calcium Level 8.9, Phospho екатерина Level 5.8H, Magnesium Level 2.1, Total Bilirubin 0.4, Aspartate Amino Transf (AST/SGOT) 14L, Alanine Aminotransferase (ALT/SGPT) 15, Alkaline Phosphatase 117H, Total Protein 7.3, Albumin 2.5L, Globulin 4.8, Albumin/Globulin Ratio 0.5L Height (Feet): 5 Height (Inches): 1.00 Weight (Pounds): 92 General Appearance: alert EENT: PERRL/EOMI Neck: supple Cardiovascular: regular rhythm Respiratory/Chest: lungs clear Abdomen: non tender, soft Extremities: non-tender Assessment/Plan Status: stable Assessment/Plan: 1 sob 2 covid pna cont isolation 3 chf diastolic acute 4 esrd on hd 5 failure of thrive 6 dementia 7 dm poory controlled due to steroids 8 hypotension 9 hyperkalemia rpt ok add levamier and high dose short insulin pt/ot eval dw pt pt is very weak iv abx hd cardio and pulmonary consult cont current tx Cesar Swanson MD Nov 06, 2020 10:49
--- NOTE | 2020-11-06 11:38 | Infectious Diseases Prog Note ---
Assessment/Plan Assessment/Plan antibiotics : none A 1. COVID-19 pneumonia on 2 L oxygen with O2 saturation of 96 %. s/p ivermectin s/p decadron 2. Renal failure, on dialysis. 3. Congestive heart failure. 4. Right eye conjunctivitis improving 5. hypertension P 1. continue off antibiotics 2. continue isolation Subjective Constitutional: Denies: fever, chills Respiratory: Denies: shortness of breath, dry cough Gastrointestinal/Abdominal: Denies: nausea, vomiting, diarrhea Musculoskeletal: Denies: pain Allergies: Coded Allergies: No Known Allergies (Unverified , 09/23/20) Objective Last 24 Hour Vital Signs Date Time Temp Pulse Resp B/P (MAP) Pulse Ox O2 Delivery O2 Flow Rate FiO2 11/06/20 08:00 98.1 82 19 165/82 (109) 95 11/06/20 04:00 97.3 80 20 156/70 (98) 95 11/06/20 00:00 97.7 68 20 140/64 (89) 96 11/05/20 23:55 Nasal Cannula 2.0 11/05/20 20:00 98.5 68 22 153/70 (97) 96 11/05/20 17:52 100.0 11/05/20 16:00 99.1 72 18 144/64 (90) 96 11/05/20 12:00 99.9 74 18 145/64 (91) 96 Height (Feet): 5 Height (Inches): 1.00 Weight (Pounds): 92 Laboratory Tests Test 11/06/20 08:35 White Blood Count 9.1 K/UL (4.8-10.8) Red Blood Count 3.20 M/UL (4.20-5.40) L Hemoglobin 9.9 G/DL (12.0-16.0) L Hematocrit 31.6 % (37.0-47.0) L Mean Corpuscular Volume 99 FL (80-99) Mean Corpuscular Hemoglobin 31.0 PG (27.0-31.0) Mean Corpuscular Hemoglobin Concent 31.4 G/DL (32.0-36.0) L Red Cell Distribution Width 18.4 % (11.6-14.8) H Platelet Count 238 K/UL (150-450) Mean Platelet Volume 7.4 FL (6.5-10.1) Neutrophils (%) (Auto) 70.6 % (45.0-75.0) Lymphocytes (%) (Auto) 13.3 % (20.0-45.0) L Monocytes (%) (Auto) 15.0 % (1.0-10.0) H Eosinophils (%) (Auto) 0.4 % (0.0-3.0) Basophils (%) (Auto) 0.6 % (0.0-2.0) Sodium Level 144 MMOL/L (136-145) Potassium Level 5.1 MMOL/L (3.5-5.1) Chloride Level 106 MMOL/L (98-107) Carbon Dioxide Level 29 MMOL/L (21-32) Anion Gap 9 mmol/L (5-15) Blood Urea Nitrogen 91 mg/dL (7-18) H Creatinine 5.8 MG/DL (0.55-1.30) H Estimat Glomerular Filtration Rate 7.1 mL/min (>60) Glucose Level 145 MG/DL (74-106) H Calcium Level 8.9 MG/DL (8.5-10.1) Phosphorus Level 5.8 MG/DL (2.5-4.9) H Magnesium Level 2.1 MG/DL (1.8-2.4) Total Bilirubin 0.4 MG/DL (0.2-1.0) Aspartate Amino Transf (AST/SGOT) 14 U/L (15-37) L Alanine Aminotransferase (ALT/SGPT) 15 U/L (12-78) Alkaline Phosphatase 117 U/L (46-116) H Total Protein 7.3 G/DL (6.4-8.2) Albumin 2.5 G/DL (3.4-5.0) L Globulin 4.8 g/dL Albumin/Globulin Ratio 0.5 (1.0-2.7) L Current Medications Medications (Trade) Dose Ordered Sig/Yeimi Route PRN Reason Start Time Stop Time Status Last Admin Dose Admin Acetaminophen (Tylenol) 650 mg Q4H PRN ORAL Temp >100.5 10/27/20 14:15 11/26/20 14:14 11/05/20 17:22 Citalopram Hydrobromide (CeleXA) 20 mg DAILY ORAL 10/29/20 09:00 11/28/20 08:59 11/06/20 09:26 Dextrose (Dextrose 50%) 25 ml Q30M PRN IV Hypoglycemia 10/28/20 20:45 01/26/21 20:44 Dextrose (Dextrose 50%) 50 ml Q30M PRN IV Hypoglycemia 10/28/20 20:45 01/26/21 20:44 Docusate Sodium (Colace) 100 mg TWICE A DAY ORAL 10/28/20 18:00 11/27/20 17:59 11/06/20 09:26 Haloperidol Lactate (Haldol) 5 mg Q6H PRN IM Agitation 10/28/20 15:45 12/12/20 15:44 Insulin Aspart (NovoLOG) BEFORE MEALS AND HS SUBQ 10/28/20 21:00 01/26/21 20:59 11/06/20 05:44 Insulin Detemir (Levemir) 10 units Q24H SUBQ 10/29/20 20:00 01/27/21 19:59 11/05/20 21:28 Megestrol Acetate (Megace) 400 mg DAILY ORAL 10/28/20 09:00 01/26/21 08:59 11/06/20 09:26 Pantoprazole (Protonix) 40 mg EVERY 12 HOURS ORAL 10/28/20 21:00 11/27/20 20:59 11/06/20 09:26 Sevelamer Carbonate (Renvela) 800 mg THREE TIMES A DAY ORAL 10/28/20 13:00 01/26/21 12:59 11/06/20 09:26 Zinc Sulfate (Zinc Sulfate) 220 mg DAILY ORAL 11/02/20 09:00 11/12/20 08:59 11/06/20 09:26 Erika Stiles MD Nov 06, 2020 11:38
[2020-11-06 12:00] VITALS: BP 172/86
--- NOTE | 2020-11-06 12:30 | Pulmonology Progress Note ---
Subjective ROS Limited/Unobtainable: Yes Interval Events: none major Constitutional: Denies: fever, chills HEENT: Repors: no symptoms Respiratory: Reports: no symptoms Cardiovascular: Reports: no symptoms Gastrointestinal/Abdominal: Denies: nausea, vomiting, diarrhea Musculoskeletal: Denies: pain Allergies: Coded Allergies: No Known Allergies (Unverified , 09/23/20) Objective Last 24 Hour Vital Signs Date Time Temp Pulse Resp B/P (MAP) Pulse Ox O2 Delivery O2 Flow Rate FiO2 11/06/20 08:00 98.1 82 19 165/82 (109) 95 11/06/20 04:00 97.3 80 20 156/70 (98) 95 11/06/20 00:00 97.7 68 20 140/64 (89) 96 11/05/20 23:55 Nasal Cannula 2.0 11/05/20 20:00 98.5 68 22 153/70 (97) 96 11/05/20 17:52 100.0 11/05/20 16:00 99.1 72 18 144/64 (90) 96 Intake and Output 11/05/20 11/06/20 19:00 07:00 Intake Total 150 ml Balance 150 ml Intake Oral 150 ml Objective 11/06/2020 pt beeing seenb y PT; saturating well on 2 lpm NC; due for dialysis today 11/05/2020 pt asleep; s/p dialysis; saturating well on 2 lpm NC 11/04/2020 pt asleep; saturating well on 2 lpm NC; NAD 11/03/2020 saturating well on 2 lpm NC; eating in bed; NAD 11/02/2020 saturating well on 1 lpm NC; s/p dialysis 11/01/2020 saturating well on 1 lpm NC 10/31/2020 patient alert; saturating well on 1 lpm NC 10/30/2020 pt asleep; saturating well on low flow oxygen 10/29/2020 pt asleep in bed; saturating well on low flow oxygen General Appearance: cachetic HEENT: normocephalic, atraumatic Respiratory: chest wall non-tender, rhonchi - bilaterally, other - dialysis catheter Cardiovascular: normal rate, regular rhythm Abdomen: soft, non tender Laboratory Tests 11/06/20 08:35: White Blood Count 9.1, Red Blood Count 3.20L, Hemoglobin 9.9L, Hematocrit 31.6L, Mean Corpuscular Volume 99, Mean Corpuscular Hemoglobin 31.0, Mean Corpuscular Hemoglobin Concent 31.4L, Red Cell Distribution Width 18.4H, Platelet Count 238, Mean Platelet Volume 7.4, Neutrophils (%) (Auto) 70.6, Lymphocytes (%) (Auto) 13.3L, Monocytes (%) (Auto) 15.0H, Eosinophils (%) (Auto) 0.4, Basophils (%) (Auto) 0.6, Sodium Level 144, Potassium Level 5.1, Chloride Level 106, Carbon Dioxide Level 29, Anion Gap 9, Blood Urea Nitrogen 91H, Creatinine 5.8H, Estimat Glomerular Filtration Rate 7.1, Glucose Level 145H, Calcium Level 8.9, Phosphorus Level 5.8H, Magnesium Level 2.1, Total Bilirubin 0.4, Aspartate Amino Transf (AST/SGOT) 14L, Alanine Aminotransferase (ALT/SGPT) 15, Alkaline Phosphatase 117H, Total Protein 7.3, Albumin 2.5L, Globulin 4.8, Albumin/Globulin Ratio 0.5L Current Medications Medications (Trade) Dose Ordered Sig/Yeimi Route PRN Reason Start Time Stop Time Status Last Admin Dose Admin Acetaminophen (Tylenol) 650 mg Q4H PRN ORAL Temp >100.5 10/27/20 14:15 11/26/20 14:14 11/05/20 17:22 Citalopram Hydrobromide (CeleXA) 20 mg DAILY ORAL 10/29/20 09:00 11/28/20 08:59 11/06/20 09:26 Dextrose (Dextrose 50%) 25 ml Q30M PRN IV Hypoglycemia 10/28/20 20:45 01/26/21 20:44 Dextrose (Dextrose 50%) 50 ml Q30M PRN IV Hypoglycemia 10/28/20 20:45 01/26/21 20:44 Docusate Sodium (Colace) 100 mg TWICE A DAY ORAL 10/28/20 18:00 11/27/20 17:59 11/06/20 09:26 Haloperidol Lactate (Haldol) 5 mg Q6H PRN IM Agitation 10/28/20 15:45 12/12/20 15:44 Insulin Aspart (NovoLOG) BEFORE MEALS AND HS SUBQ 10/28/20 21:00 01/26/21 20:59 11/06/20 05:44 Insulin Detemir (Levemir) 10 units Q24H SUBQ 10/29/20 20:00 01/27/21 19:59 11/05/20 21:28 Megestrol Acetate (Megace) 400 mg DAILY ORAL 10/28/20 09:00 01/26/21 08:59 11/06/20 09:26 Pantoprazole (Protonix) 40 mg EVERY 12 HOURS ORAL 10/28/20 21:00 11/27/20 20:59 11/06/20 09:26 Sevelamer Carbonate (Renvela) 800 mg THREE TIMES A DAY ORAL 10/28/20 13:00 01/26/21 12:59 11/06/20 09:26 Zinc Sulfate (Zinc Sulfate) 220 mg DAILY ORAL 11/02/20 09:00 11/12/20 08:59 11/06/20 09:26 Assessment/Plan Assessment/Plan 1. COVID-19 pneumonia. - Continue isolation. - wean down oxygen as tolerated while keeping SaO2 >92%; currently saturating 96% on 2 lpm NC - CXR 10/27/2020 shows multifocal infiltrate. - s/p decadron - s/p ceftriaxone and azithromycin. - Repeat COVID-19 test 10/29/2020 positive 2. Renal failure, on dialysis. 3. Congestive heart failure. - BNP >35,000 - 2D echo EF 35-40% - management per cardio 4. Right eye conjunctivitis. - improving 5. DVT ppx - D-dimer 3.08, CRP 16.1 -> 4.0 - 10/29/2020 venous ultrasound unremarkable - On SCD 6. hyperkalemia - per renal We will follow carefully The care of this patient was discussed with my supervising physician Time spent for this encounter was approximately 31 minutes The patient was seen and examined at bedside and all new and available data was reviewed in the patients chart. I agree with the above findings, impression, and plan. (Patient was seen earlier today. Signature timestamp does not reflect patient encounter time) Zbigniew Francis MD Nov 06, 2020 12:30 Naman Krause MD Nov 06, 2020 17:38
--- NOTE | 2020-11-06 15:28 | Surgery Progress Note ---
Surgery Progress Note Subjective Symptoms: improved, tolerating diet, passing flatus Objective Last 24 Hour Vital Signs Date Time Temp Pulse Resp B/P (MAP) Pulse Ox O2 Delivery O2 Flow Rate FiO2 11/06/20 12:00 97.2 81 17 172/86 (114) 98 11/06/20 08:00 98.1 82 19 165/82 (109) 95 11/06/20 04:00 97.3 80 20 156/70 (98) 95 11/06/20 00:00 97.7 68 20 140/64 (89) 96 11/05/20 23:55 Nasal Cannula 2.0 11/05/20 20:00 98.5 68 22 153/70 (97) 96 11/05/20 17:52 100.0 11/05/20 16:00 99.1 72 18 144/64 (90) 96 I&O Intake and Output 11/05/20 11/06/20 19:00 07:00 Intake Total 150 ml Balance 150 ml Intake Oral 150 ml Dressing: saturated Cardiovascular: RSR Respiratory: decreased breath sounds Abdomen: non-tender, present bowel sounds Extremities: no tenderness, no cyanosis Laboratory Tests Test 11/06/20 08:35 White Blood Count 9.1 K/UL (4.8-10.8) Red Blood Count 3.20 M/UL (4.20-5.40) L Hemoglobin 9.9 G/DL (12.0-16.0) L Hematocrit 31.6 % (37.0-47.0) L Mean Corpuscular Volume 99 FL (80-99) Mean Corpuscular Hemoglobin 31.0 PG (27.0-31.0) Mean Corpuscular Hemoglobin Concent 31.4 G/DL (32.0-36.0) L Red Cell Distribution Width 18.4 % (11.6-14.8) H Platelet Count 238 K/UL (150-450) Mean Platelet Volume 7.4 FL (6.5-10.1) Neutrophils (%) (Auto) 70.6 % (45.0-75.0) Lymphocytes (%) (Auto) 13.3 % (20.0-45.0) L Monocytes (%) (Auto) 15.0 % (1.0-10.0) H Eosinophils (%) (Auto) 0.4 % (0.0-3.0) Basophils (%) (Auto) 0.6 % (0.0-2.0) Sodium Level 144 MMOL/L (136-145) Potassium Level 5.1 MMOL/L (3.5-5.1) Chloride Level 106 MMOL/L (98-107) Carbon Dioxide Level 29 MMOL/L (21-32) Anion Gap 9 mmol/L (5-15) Blood Urea Nitrogen 91 mg/dL (7-18) H Creatinine 5.8 MG/DL (0.55-1.30) H Estimat Glomerular Filtration Rate 7.1 mL/min (>60) Glucose Level 145 MG/DL (74-106) H Calcium Level 8.9 MG/DL (8.5-10.1) Phosphorus Level 5.8 MG/DL (2.5-4.9) H Magnesium Level 2.1 MG/DL (1.8-2.4) Total Bilirubin 0.4 MG/DL (0.2-1.0) Aspartate Amino Transf (AST/SGOT) 14 U/L (15-37) L Alanine Aminotransferase (ALT/SGPT) 15 U/L (12-78) Alkaline Phosphatase 117 U/L (46-116) H Total Protein 7.3 G/DL (6.4-8.2) Albumin 2.5 G/DL (3.4-5.0) L Globulin 4.8 g/dL Albumin/Globulin Ratio 0.5 (1.0-2.7) L Plan Problems: (1) Decubitus skin ulcer Assessment & Plan: Pt presented on admission with multiple Pressure Injuries. DTPI Sacrum(L)8cm x (W)8cm. Base of wound is purpuric with surrounding non- Blanchable erythema. Darker skin tone without erythema or induration periwound. Pt complained at site of DTPI when minimally palpated. Non-Blanchable erythema without induration R Ischium(L)7cm x (W)7.5cm. L Heel is boggy with non-Blanchable erythema. R heel is Boggy with non-blanchable erythema. Tx.Plan: Apply Moisture Barrier Paste to Sacrum. Cover with Optifoam drsg. Change every 3 days and prn.. Apply Moisture Barrier Paste to R and L Ischial tuberosities. Cover each Ischium with Optifoam drsgs. Change every 3 days and prn. Apply Cavilon Skin Barrier to R and L Heels and each Malleoli. Cover each site with Optifoam drsgs. Change every 7 days and prn. Cover Bony prominences as needed with Optifoam drsgs. Reposition at least every 2 hours or as tolerated. Off-load heels with Pillow. (2) Dyspnea (3) Respiratory distress (4) Pneumonia due to COVID-19 virus Assessment & Plan: ++ on tx id and pulm input appreciated limited movement will need to be cautions to ensure not worsening decub (5) Hypoglycemia (6) End stage renal disease on dialysis (7) Transient hypotension (8) Diastolic CHF, chronic (9) C. difficile colitis (10) Diarrhea Assessment & Plan: DAILY ESTIMATED NEEDS: Needs based on ESRD on HD 42kg 30-40 kcals/kg [id number] total kcals 1.25-1.8 g protein/kg 53-76 g total protein Fluid per MD, on HD NUTRITION DIAGNOSIS: Increased kcal and pro needs r/t renal dysfunction, wound healing as evidenced by pt w/ ESRD on HD, admitted w/ wounds, including sacral DTPI. CURRENT DIET:Renal diet PO DIET RECOMMENDATIONS: Maintain renal diet/ texture per [employer] OPERATOR ADDITIONAL RECOMMENDATIONS: 1) Daily wts, calibrated bed scale 2) Rec [employer] OPERATOR eval for appropriate texture 3) Add NEPRO TID w/ meals (425 kcal/ 19g pro per pack) 4) Monitor for hypoglycemia w/ variable PO 5) Wound healing: Nephrovite x 1, ZnSO4 220mg QD x 10 days Abdirahman BID as tolerated (11) ESRD (end stage renal disease) (12) Altered mental status (13) Pneumonia Kurt Flores Nov 06, 2020 15:28
[2020-11-06 16:00] VITALS: BP 162/86
--- NOTE | 2020-11-06 16:11 | Nephrology Progress Note ---
Assessment/Plan Problem List: (1) End stage renal disease on dialysis (2) C. difficile colitis (3) Transient hypotension (4) Diastolic CHF, chronic Assessment 75-year-old female presents with respiratory distress and COVID-19 infection Patient has end-stage renal disease and last dialyzed 4 days ago Patient presents with high potassium History of C. difficile colitis History of diabetes mellitus History of hypertension, presents with transient hypotension History of cardiomyopathy and diastolic CHF Plan November 06: Labs reviewed. Medication list reviewed. Will order dialysis for tomorrow. Continue per consultants. Hydralazine 25 mg as needed for high blood pressure ordered. November 05: Discussed with dialysis nurse. Patient was dialyzed late last night. However today's lab results suggestive of high BUN and creatinine. Serum potassium elevated but the repeat is normal. Will hold the Kayexalate. Will attempt another dialysis and order post BUN and creatinine. Reevaluation on November 05 at 3 PM: Stat BMP done as it appears this morning's lab was prior to dialysis even though it was marked 6 AM. The stat dialysis orders will be canceled based on new lab results. Will arrange for next dialysis on November 07 unless she needs it earlier. November 04: Patient due for dialysis today. Blood pressure stable. No UF is scheduled during dialysis. Check labs tomorrow. No can panel drawn today. November 03: Patient was dialyzed yesterday. Labs reviewed. Blood pressure more stable. Due for dialysis tomorrow. No ultrafiltration is ordered. November 02: Dialyzed today. Blood pressure 95 systolic. Parameters for BP medications. Patient asymptomatic. Albumin 25% 100 cc 1 bolus dose ordered. Continue rest. Discussed with RN. November 01: Dialyzed yesterday. Labs reviewed. Medication list reviewed. Blood pressure medication adjusted. Hemodialysis tomorrow. October 31: Due for dialysis today. No labs drawn today. Continue per consultants. Will check can panel tomorrow. Medication list reviewed. Blood pressure stable. October 30: Last dialyzed October 29. Due for dialysis October 31. Continue per consultants. October 29: Patient dialyzed last evening of October 27. Serum creatinine and electrolyte much improved Continue per current treatment plan Per orders Next dialysis today October 29 Check labs in a.m. Subjective ROS Limited/Unobtainable: No Constitutional: Reports: malaise Objective Objective Last 24 Hour Vital Signs Date Time Temp Pulse Resp B/P (MAP) Pulse Ox O2 Delivery O2 Flow Rate FiO2 12/16/20 12:00 97.2 81 17 172/86 (114) 98 11/06/20 08:00 98.1 82 19 165/82 (109) 95 11/06/20 04:00 97.3 80 20 156/70 (98) 95 11/06/20 00:00 97.7 68 20 140/64 (89) 96 11/05/20 23:55 Nasal Cannula 2.0 11/05/20 20:00 98.5 68 22 153/70 (97) 96 11/05/20 17:52 100.0 Intake and Output 11/05/20 11/06/20 19:00 07:00 Intake Total 150 ml Balance 150 ml Intake Oral 150 ml Current Medications Medications (Trade) Dose Ordered Sig/Yeimi Route PRN Reason Start Time Stop Time Status Last Admin Dose Admin Acetaminophen (Tylenol) 650 mg Q4H PRN ORAL Temp >100.5 10/27/20 14:15 11/26/20 14:14 11/05/20 17:22 Citalopram Hydrobromide (CeleXA) 20 mg DAILY ORAL 10/29/20 09:00 11/28/20 08:59 11/06/20 09:26 Dextrose (Dextrose 50%) 25 ml Q30M PRN IV Hypoglycemia 10/28/20 20:45 01/26/21 20:44 Dextrose (Dextrose 50%) 50 ml Q30M PRN IV Hypoglycemia 10/28/20 20:45 01/26/21 20:44 Docusate Sodium (Colace) 100 mg TWICE A DAY ORAL 10/28/20 18:00 11/27/20 17:59 11/06/20 09:26 Haloperidol Lactate (Haldol) 5 mg Q6H PRN IM Agitation 10/28/20 15:45 12/12/20 15:44 Insulin Aspart (NovoLOG) BEFORE MEALS AND HS SUBQ 10/28/20 21:00 01/26/21 20:59 11/06/20 05:44 Insulin Detemir (Levemir) 10 units Q24H SUBQ 10/29/20 20:00 01/27/21 19:59 11/05/20 21:28 Megestrol Acetate (Megace) 400 mg DAILY ORAL 10/28/20 09:00 01/26/21 08:59 11/06/20 09:26 Pantoprazole (Protonix) 40 mg EVERY 12 HOURS ORAL 10/28/20 21:00 11/27/20 20:59 11/06/20 09:26 Sevelamer Carbonate (Renvela) 800 mg THREE TIMES A DAY ORAL 10/28/20 13:00 01/26/21 12:59 11/06/20 13:32 Zinc Sulfate (Zinc Sulfate) 220 mg DAILY ORAL 11/02/20 09:00 11/12/20 08:59 11/06/20 09:26 Laboratory Tests 11/06/20 08:35: White Blood Count 9.1, Red Blood Count 3.20L, Hemoglobin 9.9L, Hematocrit 31.6L, Mean Corpuscular Volume 99, Mean Corpuscular Hemoglobin 31.0, Mean Corpuscular Hemoglobin Concent 31.4L, Red Cell Distribution Width 18.4H, Platelet Count 238, Mean Platelet Volume 7.4, Neutrophils (%) (Auto) 70.6, Lymphocytes (%) (Auto) 13.3L, Monocytes (%) (Auto) 15.0H, Eosinophils (%) (Auto) 0.4, Basophils (%) (Auto) 0.6, Sodium Level 144, Potassium Level 5.1, Chloride Level 106, Carbon Dioxide Level 29, Anion Gap 9, Blood Urea Nitrogen 91H, Creatinine 5.8H, Estimat Glomerular Filtration Rate 7.1, Glucose Level 145H, Calcium Level 8.9, Phosphorus Level 5.8H, Magnesium Level 2.1, Total Bilirubin 0.4, Aspartate Amino Transf (AST/SGOT) 14L, Alanine Aminotransferase (ALT/SGPT) 15, Alkaline Phosphatase 117H, Total Protein 7.3, Albumin 2.5L, Globulin 4.8, Albumin/Gl obulin Ratio 0.5L Height (Feet): 5 Height (Inches): 1.00 Weight (Pounds): 92 General Appearance: no apparent distress, lethargic Cardiovascular: normal rate Respiratory/Chest: decreased breath sounds Abdomen: soft Objective No change Chris Puckett MD Nov 06, 2020 16:11
[2020-11-06] MEDS ORDERED: HydrALAZINE 25mg tab ORAL PRN (16:15)
--- NOTE | 2020-11-06 16:55 | NUR ---
CASE MANAGEMENT:REVIW SI;COVID PNA 98.5 82 22 172/86 95% 2L NC BUN 91 CR 5.8 BG 253 PHOS 5.8 ALB 2.5 IS;MEGACE PO QD PROTONIX PO Q12 ZINC SULFATE PO QD MED SURG STATUS DCP;FROM [facility]
--- NOTE | 2020-11-06 17:02 | Cardiology Progress Note ---
Assessment/Plan Status Narrative 1. COVID-19 viral PNA low grade fever antiviral tx per ID 2. HFrEF, acute on chronic systolic on diastolic HF with EF 35-40% BNP severely elevated Fluid balance with HD Troponin 0.004 3. ESRD on HD Aneuric 4. HTN - under better control 5. Mitral regurgitation - mod-severe contributing to severity of HF 6. possible ASD with L to R shunt 7. Sinus tachycardia 2/2 viral PNA and fever rate controlled, in SR SBP elevated, fluid balance with HD. Tx for viral PNA per ID. No acute events. Subjective Cardiovascular: Reports: edema Respiratory: Reports: shortness of breath Gastrointestinal/Abdominal: Reports: no symptoms Genitourinary: Reports: no symptoms Subjective Low grade fever Objective Last 24 Hour Vital Signs Date Time Temp Pulse Resp B/P (MAP) Pulse Ox O2 Delivery O2 Flow Rate FiO2 11/06/20 12:00 97.2 81 17 172/86 (114) 98 11/06/20 08:00 98.1 82 19 165/82 (109) 95 11/06/20 04:00 97.3 80 20 156/70 (98) 95 11/06/20 00:00 97.7 68 20 140/64 (89) 96 11/05/20 23:55 Nasal Cannula 2.0 11/05/20 20:00 98.5 68 22 153/70 (97) 96 11/05/20 17:52 100.0 General Appearance: no apparent distress EENT: PERRL/EOMI Neck: no JVD Rhythm: NSR Cardiovascular: regular rhythm Respiratory/Chest: no respiratory distress, no accessory muscle use 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: senior animator II-XII grossly normal Intake and Output 11/05/20 11/06/20 19:00 07:00 Intake Total 150 ml Balance 150 ml Intake Oral 150 ml Laboratory Tests Test 11/06/20 08:35 11/06/20 16:44 White Blood Count 9.1 K/UL (4.8-10.8) Red Blood Count 3.20 M/UL (4.20-5.40) L Hemoglobin 9.9 G/DL (12.0-16.0) L Hematocrit 31.6 % (37.0-47.0) L Mean Corpuscular Volume 99 FL (80-99) Mean Corpuscular Hemoglobin 31.0 PG (27.0-31.0) Mean Corpuscular Hemoglobin Concent 31.4 G/DL (32.0-36.0) L Red Cell Distribution Width 18.4 % (11.6-14.8) H Platelet Count 238 K/UL (150-450) Mean Platelet Volume 7.4 FL (6.5-10.1) Neutrophils (%) (Auto) 70.6 % (45.0-75.0) Lymphocytes (%) (Auto) 13.3 % (20.0-45.0) L Monocytes (%) (Auto) 15.0 % (1.0-10.0) H Eosinophils (%) (Auto) 0.4 % (0.0-3.0) Basophils (%) (Auto) 0.6 % (0.0-2.0) Sodium Level 144 MMOL/L (136-145) Potassium Level 5.1 MMOL/L (3.5-5.1) Chloride Level 106 MMOL/L (98-107) Carbon Dioxide Level 29 MMOL/L (21-32) Anion Gap 9 mmol/L (5-15) Blood Urea Nitrogen 91 mg/dL (7-18) H Creatinine 5.8 MG/DL (0.55-1.30) H Estimat Glomerular Filtration Rate 7.1 mL/min (>60) Glucose Level 145 MG/DL (74-106) H Calcium Level 8.9 MG/DL (8.5-10.1) Phosphorus Level 5.8 MG/DL (2.5-4.9) H Magnesium Level 2.1 MG/DL (1.8-2.4) Total Bilirubin 0.4 MG/DL (0.2-1.0) Aspartate Amino Transf (AST/SGOT) 14 U/L (15-37) L Alanine Aminotransferase (ALT/SGPT) 15 U/L (12-78) Alkaline Phosphatase 117 U/L (46-116) H Total Protein 7.3 G/DL (6.4-8.2) Albumin 2.5 G/DL (3.4-5.0) L Globulin 4.8 g/dL Albumin/Globulin Ratio 0.5 (1.0-2.7) L POC Whole Blood Glucose 253 MG/DL (74-106) H Pamela Chowdhury PA-C Nov 06, 2020 17:02
[2020-11-06 20:00] VITALS: BP 157/86
[2020-11-06] MEDS: Levemir Flexpen SUBQ SCH (20:17)
--- NOTE | 2020-11-06 20:28 | NUR ---
NURSE HAND-OFF: Important Events on Shift: Patient to receive hemodialysis this evening. Patient Status: Stable Diet: Renal Pending Orders: Hemodialysis. Pending Results/Labs:N/A Pending MD notification:N/A Latest Vital Signs: Temperature 97.1 , Pulse 81 , B/P 162 /86 , Respiratory Rate 20 , O2 SAT 97 , Nasal Cannula, O2 Flow Rate 2.0 . Vital Sign Comment: Held blood pressure medications prior to dialysis. Latest Ness Fall Score: 50 Fall Risk: High Risk Safety Measures: Call light Within Reach, Bed Alarm Zone 1, Side Rails Side Rails x2, Bed position Low and Locked. Fall Precautions: Yellow Socks Yellow Gown Door Sign Patient Fall Education Report given to Adrianna Holman RN.
[2020-11-07] VITALS: BP 156/79
[2020-11-07 04:00] VITALS: BP 177/89
[2020-11-07] MEDS: NovoLOG Insulin Flexpen SUBQ SCH ×4 (05:53→21:00)
--- NOTE | 2020-11-07 06:56 | Hematology/Onc Progress Note ---
Assessment/Plan Assessment/Plan # Anemia of chronic disease due to underlying chronic medical issues, multifactorial v Gi bleed --> Anemia workup has been ordered, rule out gi bleed --> No evidence of hemolysis is noted, peripheral smear has been reviewed. --> Hgb goal >7. Transfuse prn --> Epogen or iron at this time is not particularly indicated --> Medications have been reviewed --> low threshold for gi evaluation in case has occult + --> hgb 11-->9.6 # Covid pna cont isolation -> completed steriods --> per pulm recs # chf diastolic acute -> cards aware # Esrd on hd --> per renal # failure of thrive # dementia # dm poory controlled due to steroids Appreciate consultation and dw PCP Subjective HEENT: Denies: no symptoms, eye pain, blurred vision, tearing, double vision, ear pain, ear discharge, nose pain, nose congestion, throat pain, throat swelling, mouth pain, mouth swelling, other Cardiovascular: Denies: no symptoms, chest pain, edema, irregular heart rate, lightheadedness, palpitations, syncope, other Respiratory: Denies: no symptoms, cough, shortness of breath, SOB with excertion, SOB at rest, sputum, wheezing, other Gastrointestinal/Abdominal: Denies: no symptoms, abdomen distended, abdominal pain, black stools, tarry stools, blood in stool, constipated, diarrhea, difficulty swallowing, nausea, poor appetite, poor fluid intake, rectal bleeding, vomiting, other Genitourinary: Denies: no symptoms, burning, discharge, frequency, flank pain, hematuria, incontinence, pain, urgency, other Neurologic/Psychiatric: Denies: no symptoms, anxiety, depressed, emotional problems, headache, numbness, paresthesia, pre-existing deficit, seizure, tingling, tremors, weakness, other Endocrine: Denies: no symptoms, excessive sweating, flushing, intolerance to cold, intolerance to heat, increased hunger, increased thirst, increased urine, unexplained weight gain, unexplained weight loss, other Allergies: Coded Allergies: No Known Allergies (Unverified , 09/23/20) Subjective 11/04 labs are noted, no bleeding, meds reviewed, on steriods, seen by pulm 11/05 hd done yesterday, no bleeding, cbc is pending 11/06 awake, alert, labs are pending, reviewed supervisor home energy consultant recs 11/07 meds reviewed, labs noted, no bleeding Objective Objective Current Medications Medications (Trade) Dose Ordered Sig/Yeimi Route PRN Reason Start Time Stop Time Status Last Admin Dose Admin Acetaminophen (Tylenol) 650 mg Q4H PRN ORAL Temp >100.5 10/27/20 14:15 11/26/20 14:14 11/05/20 17:22 Citalopram Hydrobromide (CeleXA) 20 mg DAILY ORAL 10/29/20 09:00 11/28/20 08:59 11/06/20 09:26 Dextrose (Dextrose 50%) 25 ml Q30M PRN IV Hypoglycemia 10/28/20 20:45 01/26/21 20:44 Dextrose (Dextrose 50%) 50 ml Q30M PRN IV Hypoglycemia 10/28/20 20:45 01/26/21 20:44 Docusate Sodium (Colace) 100 mg TWICE A DAY ORAL 10/28/20 18:00 11/27/20 17:59 11/06/20 18:20 Haloperidol Lactate (Haldol) 5 mg Q6H PRN IM Agitation 10/28/20 15:45 12/12/20 15:44 Hydralazine HCl (Apresoline) 25 mg Q4H PRN ORAL For BP over 160 systolic 11/06/20 16:15 02/04/21 16:14 Insulin Aspart (NovoLOG) BEFORE MEALS AND HS SUBQ 10/28/20 21:00 01/26/21 20:59 11/06/20 20:19 Insulin Detemir (Levemir) 10 units Q24H SUBQ 10/29/20 20:00 01/27/21 19:59 11/06/20 20:17 Megestrol Acetate (Megace) 400 mg DAILY ORAL 10/28/20 09:00 01/26/21 08:59 11/06/20 09:26 Pantoprazole (Protonix) 40 mg EVERY 12 HOURS ORAL 10/28/20 21:00 11/27/20 20:59 11/06/20 20:14 Sevelamer Carbonate (Renvela) 800 mg THREE TIMES A DAY ORAL 10/28/20 13:00 01/26/21 12:59 11/06/20 18:20 Zinc Sulfate (Zinc Sulfate) 220 mg DAILY ORAL 11/02/20 09:00 11/12/20 08:59 11/06/20 09:26 Last 24 Hour Vital Signs Date Time Temp Pulse Resp B/P (MAP) Pulse Ox O2 Delivery O2 Flow Rate FiO2 11/07/20 04:00 97.7 83 21 177/89 (118) 97 11/07/20 00:00 97.9 82 20 156/79 (104) 97 11/06/20 22:54 Nasal Cannula 2.0 11/06/20 20:00 97.9 82 20 157/86 (109) 97 11/06/20 16:00 97.1 81 20 162/86 (111) 97 11/06/20 12:00 97.2 81 17 172/86 (114) 98 11/06/20 09:00 Nasal Cannula 2.0 11/06/20 08:00 98.1 82 19 165/82 (109) 95 11/06/20 04:00 97.3 80 20 156/70 (98) 95 11/06/20 00:00 97.7 68 20 140/64 (89) 96 11/05/20 23:55 Nasal Cannula 2.0 11/05/20 20:00 98.5 68 22 153/70 (97) 96 11/05/20 17:52 100.0 11/05/20 16:00 99.1 72 18 144/64 (90) 96 11/05/20 12:00 99.9 74 18 145/64 (91) 96 11/05/20 09:00 Nasal Cannula 2.0 11/05/20 08:00 98.4 71 18 128/70 (89) 97 Intake and Output 11/06/20 11/07/20 19:00 07:00 Intake Total 838 ml 250 ml Balance 838 ml 250 ml Intake Oral 838 ml 250 ml Labs Test 11/04/20 11:11 11/04/20 17:16 11/05/20 06:15 11/05/20 07:15 White Blood Count 8.0 K/UL (4.8-10.8) Red Blood Count 3.09 M/UL (4.20-5.40) Hemoglobin 9.6 G/DL (12.0-16.0) Hematocrit 29.9 % (37.0-47.0) Mean Corpuscular Volume 97 FL (80-99) Mean Corpuscular Hemoglobin 31.2 PG (27.0-31.0) Mean Corpuscular Hemoglobin Concent 32.2 G/DL (32.0-36.0) Red Cell Distribution Width 17.9 % (11.6-14.8) Platelet Count 242 K/UL (150-450) Mean Platelet Volume 7.0 FL (6.5-10.1) Neutrophils (%) (Auto) 83.9 % (45.0-75.0) Lymphocytes (%) (Auto) 9.7 % (20.0-45.0) Monocytes (%) (Auto) 6.2 % (1.0-10.0) Eosinophils (%) (Auto) 0.0 % (0.0-3.0) Basophils (%) (Auto) 0.2 % (0.0-2.0) Sodium Level 136 MMOL/L (136-145) 144 MMOL/L (136-145) Potassium Level 7.0 MMOL/L (3.5-5.1) 4.4 MMOL/L (3.5-5.1) Chloride Level 98 MMOL/L (98-107) 106 MMOL/L (98-107) Carbon Dioxide Level 23 MMOL/L (21-32) 30 MMOL/L (21-32) Anion Gap 15 mmol/L (5-15) 8 mmol/L (5-15) Blood Urea Nitrogen 145 mg/dL (7-18) 61 mg/dL (7-18) Creatinine 8.4 MG/DL (0.55-1.30) 4.6 MG/DL (0.55-1.30) Estimat Glomerular Filtration Rate 4.6 mL/min (>60) 9.3 mL/min (>60) Glucose Level 105 MG/DL (74-106) 112 MG/DL (74-106) Calcium Level 8.6 MG/DL (8.5-10.1) 8.9 MG/DL (8.5-10.1) Phosphorus Level 7.4 MG/DL (2.5-4.9) Magnesium Level 2.1 MG/DL (1.8-2.4) Total Bilirubin 0.3 MG/DL (0.2-1.0) Aspartate Amino Transf (AST/SGOT) 16 U/L (15-37) Alanine Aminotransferase (ALT/SGPT) 22 U/L (12-78) Alkaline Phosphatase 108 U/L (46-116) Pro-B-Type Natriuretic Peptide > 31530.0 pg/mL (0-125) Total Protein 6.9 G/DL (6.4-8.2) Albumin 2.7 G/DL (3.4-5.0) Globulin 4.2 g/dL Albumin/Globulin Ratio 0.6 (1.0-2.7) Test 11/06/20 08:35 11/06/20 16:44 White Blood Count 9.1 K/UL (4.8-10.8) Red Blood Count 3.20 M/UL (4.20-5.40) Hemoglobin 9.9 G/DL (12.0-16.0) Hematocrit 31.6 % (37.0-47.0) Mean Corpuscular Volume 99 FL (80-99) Mean Corpuscular Hemoglobin 31.0 PG (27.0-31.0) Mean Corpuscular Hemoglobin Concent 31.4 G/DL (32.0-36.0) Red Cell Distribution Width 18.4 % (11.6-14.8) Platelet Count 238 K/UL (150-450) Mean Platelet Volume 7.4 FL (6.5-10.1) Neutrophils (%) (Auto) 70.6 % (45.0-75.0) Lymphocytes (%) (Auto) 13.3 % (20.0-45.0) Monocytes (%) (Auto) 15.0 % (1.0-10.0) Eosinophils (%) (Auto) 0.4 % (0.0-3.0) Basophils (%) (Auto) 0.6 % (0.0-2.0) Sodium Level 144 MMOL/L (136-145) Potassium Level 5.1 MMOL/L (3.5-5.1) Chloride Level 106 MMOL/L (98-107) Carbon Dioxide Level 29 MMOL/L (21-32) Anion Gap 9 mmol/L (5-15) Blood Urea Nitrogen 91 mg/dL (7-18) Creatinine 5.8 MG/DL (0.55-1.30) Estimat Glomerular Filtration Rate 7.1 mL/min (>60) Glucose Level 145 MG/DL (74-106) Calcium Level 8.9 MG/DL (8.5-10.1) Phosphorus Level 5.8 MG/DL (2.5-4.9) Magnesium Level 2.1 MG/DL (1.8-2.4) Total Bilirubin 0.4 MG/DL (0.2-1.0) Aspartate Amino Transf (AST/SGOT) 14 U/L (15-37) Alanine Aminotransferase (ALT/SGPT) 15 U/L (12-78) Alkaline Phosphatase 117 U/L (46-116) Total Protein 7.3 G/DL (6.4-8.2) Albumin 2.5 G/DL (3.4-5.0) Globulin 4.8 g/dL Albumin/Globulin Ratio 0.5 (1.0-2.7) POC Whole Blood Glucose 253 MG/DL (74-106) Height (Feet): 5 Height (Inches): 1.00 Weight (Pounds): 92 Objective Gen: nad Pulm: ctab CV: rrr Abd: soft, nt, nd ext: no carliee Timothy Lam MD Nov 07, 2020 06:56
--- NOTE | 2020-11-07 07:20 | NUR ---
NURSE NOTES: Report received from Clara RN, rounds made. Patient sleeping in right lateral position. Respirations even/unlabored on O2 2LNC. Patient awakens to name. RW saline lock, wrapped with kerlix. Left subclavian Permacath,dressing CDI, site asymptomatic. P200 mattress in [address]. Plans for HD today. Call light in reach, bed in lowest position, will continue to monitor.
--- NOTE | 2020-11-07 07:25 | NUR ---
HAND-OFF: Report given to David Bhakta.
[2020-11-07 08:00] VITALS: BP 138/75
--- NOTE | 2020-11-07 09:20 | NUR ---
NURSE NOTES: Followed up with MILAN (Lyle ESTEVEZ,dialysis nurse) plans for HD tonight. Okay to give scheduled meds, hold BP meds only.
[2020-11-07] MEDS: Megace 400mg/10ml Susp ORAL SCH (10:18)
[2020-11-07] MEDS: Zinc Sulfate 220mg ORAL SCH (10:18)
[2020-11-07] MEDS: Docusate 100mg cap ORAL SCH ×2 (10:18→17:51)
[2020-11-07] MEDS: Citalopram Hydrobromide 10mg Tab ORAL SCH (10:19)
--- NOTE | 2020-11-07 11:00 | Pulmonology Progress Note ---
Subjective ROS Limited/Unobtainable: No Interval Events: none major Constitutional: Denies: fever, chills HEENT: Repors: no symptoms Respiratory: Reports: no symptoms Cardiovascular: Reports: no symptoms Gastrointestinal/Abdominal: Denies: nausea, vomiting, diarrhea Musculoskeletal: Denies: pain Allergies: Coded Allergies: No Known Allergies (Unverified , 09/23/20) Objective Last 24 Hour Vital Signs Date Time Temp Pulse Resp B/P (MAP) Pulse Ox O2 Delivery O2 Flow Rate FiO2 11/07/20 08:00 97.8 78 18 138/75 (96) 96 11/07/20 04:00 97.7 83 21 177/89 (118) 97 11/07/20 00:00 97.9 82 20 156/79 (104) 97 11/06/20 22:54 Nasal Cannula 2.0 11/06/20 20:00 97.9 82 20 157/86 (109) 97 11/06/20 16:00 97.1 81 20 162/86 (111) 97 11/06/20 12:00 97.2 81 17 172/86 (114) 98 Intake and Output 11/06/20 11/07/20 19:00 07:00 Intake Total 838 ml 250 ml Balance 838 ml 250 ml Intake Oral 838 ml 250 ml Objective 11/07/2020 s/p dialysis 11/06/2020 pt being seen by PT; saturating well on 2 lpm NC; due for dialysis today 11/05/2020 pt asleep; s/p dialysis; saturating well on 2 lpm NC 11/04/2020 pt asleep; saturating well on 2 lpm NC; NAD 11/03/2020 saturating well on 2 lpm NC; eating in bed; NAD 11/02/2020 saturating well on 1 lpm NC; s/p dialysis 11/01/2020 saturating well on 1 lpm NC 10/31/2020 patient alert; saturating well on 1 lpm NC 10/30/2020 pt asleep; saturating well on low flow oxygen 10/29/2020 pt asleep in bed; saturating well on low flow oxygen General Appearance: cachetic HEENT: normocephalic, atraumatic Respiratory: chest wall non-tender, rhonchi - bilaterally, other - dialysis catheter Cardiovascular: normal rate, regular rhythm Abdomen: soft, non tender Laboratory Tests 11/06/20 16:44: POC Whole Blood Glucose 253H Current Medications Medications (Trade) Dose Ordered Sig/Yeimi Route PRN Reason Start Time Stop Time Status Last Admin Dose Admin Acetaminophen (Tylenol) 650 mg Q4H PRN ORAL Temp >100.5 10/27/20 14:15 11/26/20 14:14 11/05/20 17:22 Citalopram Hydrobromide (CeleXA) 20 mg DAILY ORAL 10/29/20 09:00 11/28/20 08:59 11/07/20 10:19 Dextrose (Dextrose 50%) 25 ml Q30M PRN IV Hypoglycemia 10/28/20 20:45 01/26/21 20:44 Dextrose (Dextrose 50%) 50 ml Q30M PRN IV Hypoglycemia 10/28/20 20:45 01/26/21 20:44 Docusate Sodium (Colace) 100 mg TWICE A DAY ORAL 10/28/20 18:00 11/27/20 17:59 11/07/20 10:18 Haloperidol Lactate (Haldol) 5 mg Q6H PRN IM Agitation 10/28/20 15:45 12/12/20 15:44 Hydralazine HCl (Apresoline) 25 mg Q4H PRN ORAL For BP over 160 systolic 11/06/20 16:15 02/04/21 16:14 Insulin Aspart (NovoLOG) BEFORE MEALS AND HS SUBQ 10/28/20 21:00 01/26/21 20:59 11/06/20 20:19 Insulin Detemir (Levemir) 10 units Q24H SUBQ 10/29/20 20:00 01/27/21 19:59 11/06/20 20:17 Megestrol Acetate (Megace) 400 mg DAILY ORAL 10/28/20 09:00 01/26/21 08:59 11/07/20 10:18 Pantoprazole (Protonix) 40 mg EVERY 12 HOURS ORAL 10/28/20 21:00 11/27/20 20:59 11/07/20 10:18 Sevelamer Carbonate (Renvela) 800 mg THREE TIMES A DAY ORAL 10/28/20 13:00 01/26/21 12:59 11/07/20 10:18 Zinc Sulfate (Zinc Sulfate) 220 mg DAILY ORAL 11/02/20 09:00 11/12/20 08:59 11/07/20 10:18 Assessment/Plan Assessment/Plan 1. COVID-19 pneumonia. - Continue isolation. - wean down oxygen as tolerated while keeping SaO2 >92%; currently saturating well on 2 lpm NC - CXR 10/27/2020 shows multifocal infiltrate. - s/p decadron - s/p ceftriaxone and azithromycin. - Repeat COVID-19 test 10/29/2020 positive 2. Renal failure, on dialysis. - per renal 3. Congestive heart failure. - BNP >35,000 - 2D echo EF 35-40% - management per cardio 4. Right eye conjunctivitis. - improving 5. DVT ppx - D-dimer 3.08, CRP 16.1 -> 4.0 - 10/29/2020 venous ultrasound unremarkable - On SCD 6. hyperkalemia - per renal We will follow carefully The care of this patient was discussed with my supervising physician Time spent for this encounter was approximately 31 minutes Zbigniew Serrano Nov 07, 2020 11:00 Naman Krause MD Nov 07, 2020 17:33
--- NOTE | 2020-11-07 11:10 | NUR ---
RD ASSESSMENT & RECOMMENDATIONS SEE CARE ACTIVITY FOR COMPLETE ASSESSMENT DAILY ESTIMATED NEEDS: Needs based on ESRD on HD 42kg 30-40 kcals/kg [id number] total kcals 1.25-1.8 g protein/kg 53-76 g total protein Fluid per MD, on HD NUTRITION DIAGNOSIS: Increased kcal and pro needs r/t renal dysfunction, wound healing as evidenced by pt w/ ESRD on HD, admitted w/ wounds, including sacral DTPI. CURRENT DIET:Renal diet PO DIET RECOMMENDATIONS: Maintain renal diet/ texture per BIN FILLER ADDITIONAL RECOMMENDATIONS: 1) Daily wts, calibrated bed scale 2) Rec BIN FILLER eval for appropriate texture 3) Add NEPRO TID w/ meals (425 kcal/ 19g pro per pack) 4) Monitor for hypoglycemia w/ variable PO 5) Wound healing: Nephrovite x 1, ZnSO4 220mg QD x 10 days Abdirahman BID as tolerated .
[2020-11-07 11:33] VITALS: BP 159/79
--- NOTE | 2020-11-07 11:56 | NUR ---
NURSE NOTES: Dr. Lawson notified of SOB while eating and some wheezing. Patient on O2 2LNC 98%, no further orders.
--- NOTE | 2020-11-07 12:21 | Infectious Diseases Prog Note ---
Assessment/Plan Assessment/Plan A 1. COVID-19 pneumonia s/p ivermectin 2. Renal failure, on dialysis. 3. Congestive heart failure. 4. Right eye conjunctivitis 5. hypertension 6. Hypoxemia P 1. Finished Decadron course 2. continue isolation Subjective ROS Limited/Unobtainable: Yes Constitutional: Denies: fever Allergies: Coded Allergies: No Known Allergies (Unverified , 09/23/20) Objective Last 24 Hour Vital Signs Date Time Temp Pulse Resp B/P (MAP) Pulse Ox O2 Delivery O2 Flow Rate FiO2 11/07/20 11:33 96.8 80 18 159/79 (105) 98 11/07/20 08:00 97.8 78 18 138/75 (96) 96 11/07/20 04:00 97.7 83 21 177/89 (118) 97 11/07/20 00:00 97.9 82 20 156/79 (104) 97 11/06/20 22:54 Nasal Cannula 2.0 11/06/20 20:00 97.9 82 20 157/86 (109) 97 11/06/20 16:00 97.1 81 20 162/86 (111) 97 Height (Feet): 5 Height (Inches): 1.00 Weight (Pounds): 92 General Appearance: no acute distress HEENT: mucous membranes moist Respiratory/Chest: lungs clear, other - oxygen by nasal cannula Cardiovascular: normal rate Abdomen: soft, non tender Extremities: no edema Neurologic/Psychiatric: other - sleeping Laboratory Tests Test 11/06/20 16:44 11/07/20 11:29 POC Whole Blood Glucose 253 MG/DL (74-106) H 101 MG/DL (74-106) Current Medications Medications (Trade) Dose Ordered Sig/Yeimi Route PRN Reason Start Time Stop Time Status Last Admin Dose Admin Acetaminophen (Tylenol) 650 mg Q4H PRN ORAL Temp >100.5 10/27/20 14:15 11/26/20 14:14 11/05/20 17:22 Citalopram Hydrobromide (CeleXA) 20 mg DAILY ORAL 10/29/20 09:00 11/28/20 08:59 11/07/20 10:19 Dextrose (Dextrose 50%) 25 ml Q30M PRN IV Hypoglycemia 10/28/20 20:45 01/26/21 20:44 Dextrose (Dextrose 50%) 50 ml Q30M PRN IV Hypoglycemia 10/28/20 20:45 01/26/21 20:44 Docusate Sodium (Colace) 100 mg TWICE A DAY ORAL 10/28/20 18:00 11/27/20 17:59 11/07/20 10:18 Haloperidol Lactate (Haldol) 5 mg Q6H PRN IM Agitation 10/28/20 15:45 12/12/20 15:44 Hydralazine HCl (Apresoline) 25 mg Q4H PRN ORAL For BP over 160 systolic 11/06/20 16:15 02/04/21 16:14 Insulin Aspart (NovoLOG) BEFORE MEALS AND HS SUBQ 10/28/20 21:00 01/26/21 20:59 11/06/20 20:19 Insulin Detemir (Levemir) 10 units Q24H SUBQ 10/29/20 20:00 01/27/21 19:59 11/06/20 20:17 Megestrol Acetate (Megace) 400 mg DAILY ORAL 10/28/20 09:00 01/26/21 08:59 11/07/20 10:18 Pantoprazole (Protonix) 40 mg EVERY 12 HOURS ORAL 10/28/20 21:00 11/27/20 20:59 11/07/20 10:18 Sevelamer Carbonate (Renvela) 800 mg THREE TIMES A DAY ORAL 10/28/20 13:00 01/26/21 12:59 11/07/20 10:18 Zinc Sulfate (Zinc Sulfate) 220 mg DAILY ORAL 11/02/20 09:00 11/12/20 08:59 11/07/20 10:18 Aryan Darby MD Nov 07, 2020 12:21
--- NOTE | 2020-11-07 15:00 | Nephrology Progress Note ---
Assessment/Plan Problem List: (1) End stage renal disease on dialysis (2) C. difficile colitis (3) Transient hypotension (4) Diastolic CHF, chronic Assessment 75-year-old female presents with respiratory distress and COVID-19 infection Patient has end-stage renal disease and last dialyzed 4 days ago Patient presents with high potassium History of C. difficile colitis History of diabetes mellitus History of hypertension, presents with transient hypotension History of cardiomyopathy and diastolic CHF Plan November 07: Due for dialysis today. Blood pressure medication adjusted. Will check lab tomorrow. November 06: Labs reviewed. Medication list reviewed. Will order dialysis for tomorrow. Continue per consultants. Hydralazine 25 mg as needed for high blood pressure ordered. November 05: Discussed with dialysis nurse. Patient was dialyzed late last night. However today's lab results suggestive of high BUN and creatinine. Serum potassium elevated but the repeat is normal. Will hold the Kayexalate. Will attempt another dialysis and order post BUN and creatinine. Reevaluation on November 05 at 3 PM: Stat BMP done as it appears this morning's lab was prior to dialysis even though it was marked 6 AM. The stat dialysis orders will be canceled based on new lab results. Will arrange for next dialysis on November 07 unless she needs it earlier. November 04: Patient due for dialysis today. Blood pressure stable. No UF is scheduled during dialysis. Check labs tomorrow. No can panel drawn today. November 03: Patient was dialyzed yesterday. Labs reviewed. Blood pressure more stable. Due for dialysis tomorrow. No ultrafiltration is ordered. November 02: Dialyzed today. Blood pressure 95 systolic. Parameters for BP medications. Patient asymptomatic. Albumin 25% 100 cc 1 bolus dose ordered. Continue rest. Discussed with RN. November 01: Dialyzed yesterday. Labs reviewed. Medication list reviewed. Blood pressure medication adjusted. Hemodialysis tomorrow. October 31: Due for dialysis today. No labs drawn today. Continue per co nsultants. Will check can panel tomorrow. Medication list reviewed. Blood pressure stable. October 30: Last dialyzed October 29. Due for dialysis October 31. Continue per consultants. October 29: Patient dialyzed last evening of October 27. Serum creatinine and electrolyte much improved Continue per current treatment plan Per orders Next dialysis today October 29 Check labs in a.m. Subjective ROS Limited/Unobtainable: No Constitutional: Reports: malaise Objective Objective Last 24 Hour Vital Signs Date Time Temp Pulse Resp B/P (MAP) Pulse Ox O2 Delivery O2 Flow Rate FiO2 11/07/20 11:33 96.8 80 18 159/79 (105) 98 11/07/20 08:00 97.8 78 18 138/75 (96) 96 11/07/20 04:00 97.7 83 21 177/89 (118) 97 11/07/20 00:00 97.9 82 20 156/79 (104) 97 11/06/20 22:54 Nasal Cannula 2.0 11/06/20 20:00 97.9 82 20 157/86 (109) 97 11/06/20 16:00 97.1 81 20 162/86 (111) 97 Intake and Output 11/06/20 11/07/20 19:00 07:00 Intake Total 838 ml 250 ml Balance 838 ml 250 ml Intake Oral 838 ml 250 ml Laboratory Tests 11/06/20 16:44: POC Whole Blood Glucose 253H 11/07/20 11:29: POC Whole Blood Glucose 101 Height (Feet): 5 Height (Inches): 1.00 Weight (Pounds): 92 General Appearance: no apparent distress Cardiovascular: normal rate Respiratory/Chest: decreased breath sounds Abdomen: soft Objective No change Chris Puckett MD Nov 07, 2020 15:00
--- NOTE | 2020-11-07 15:32 | NUR ---
NURSE NOTES: Confirmed with VIP nurse (Lyle ESTEVEZ,dialysis nurse) regarding new order for Norvasc 5 mg, last BP 159/79, instructed to hold at this time for HD.
--- NOTE | 2020-11-07 15:53 | Surgery Progress Note ---
Surgery Progress Note Subjective Symptoms: improved, tolerating diet, passing flatus Objective Last 24 Hour Vital Signs Date Time Temp Pulse Resp B/P (MAP) Pulse Ox O2 Delivery O2 Flow Rate FiO2 11/07/20 11:33 96.8 80 18 159/79 (105) 98 11/07/20 08:00 97.8 78 18 138/75 (96) 96 11/07/20 04:00 97.7 83 21 177/89 (118) 97 11/07/20 00:00 97.9 82 20 156/79 (104) 97 11/06/20 22:54 Nasal Cannula 2.0 11/06/20 20:00 97.9 82 20 157/86 (109) 97 11/06/20 16:00 97.1 81 20 162/86 (111) 97 I&O Intake and Output 11/06/20 11/07/20 19:00 07:00 Intake Total 838 ml 250 ml Balance 838 ml 250 ml Intake Oral 838 ml 250 ml Dressing: saturated Cardiovascular: RSR Respiratory: decreased breath sounds Abdomen: non-tender, present bowel sounds Extremities: no edema, no tenderness, no cyanosis Laboratory Tests Test 11/06/20 16:44 11/07/20 11:29 POC Whole Blood Glucose 253 MG/DL (74-106) H 101 MG/DL (74-106) Plan Problems: (1) Decubitus skin ulcer Assessment & Plan: Pt presented on admission with multiple Pressure Injuries. DTPI Sacrum(L)8cm x (W)8cm. Base of wound is purpuric with surrounding non- Blanchable erythema. Darker skin tone without erythema or induration periwound. Pt complained at site of DTPI when minimally palpated. Non-Blanchable erythema without induration R Ischium(L)7cm x (W)7.5cm. L Heel is boggy with non-Blanchable erythema. R heel is Boggy with non-blanchable erythema. Tx.Plan: Apply Moisture Barrier Paste to Sacrum. Cover with Optifoam drsg. Change every 3 days and prn.. Apply Moisture Barrier Paste to R and L Ischial tuberosities. Cover each Ischium with Optifoam drsgs. Change every 3 days and prn. Apply Cavilon Skin Barrier to R and L Heels and each Malleoli. Cover each site with Optifoam drsgs. Change every 7 days and prn. Cover Bony prominences as needed with Optifoam drsgs. Reposition at least every 2 hours or as tolerated. Off-load heels with Pillow. (2) Dyspnea (3) Respiratory distress (4) Pneumonia due to COVID-19 virus Assessment & Plan: ++ on tx id and pulm input appreciated limited movement will need to be cautions to ensure not worsening decub (5) Hypoglycemia (6) End stage renal disease on dialysis (7) Transient hypotension (8) Diastolic CHF, chronic (9) C. difficile colitis (10) Diarrhea Assessment & Plan: DAILY ESTIMATED NEEDS: Needs based on ESRD on HD 42kg 30-40 kcals/kg 2352-7824 total kcals 1.25-1.8 g protein/kg 53-76 g total protein Fluid per MD, on HD NUTRITION DIAGNOSIS: Increased kcal and pro needs r/t renal dysfunction, wound healing as evidenced by pt w/ ESRD on HD, admitted w/ wounds, including sacral DTPI. CURRENT DIET:Renal diet PO DIET RECOMMENDATIONS: Maintain renal diet/ texture per [employer] TECHNOLOGIST ADDITIONAL RECOMMENDATIONS: 1) Daily wts, calibrated bed scale 2) Rec FIBER TECHNOLOGIST eval for appropriate texture 3) Add NEPRO TID w/ meals (425 kcal/ 19g pro per pack) 4) Monitor for hypoglycemia w/ variable PO 5) Wound healing: Nephrovite x 1, ZnSO4 220mg QD x 10 days Abdirahman BID as tolerated (11) ESRD (end stage renal disease) (12) Altered mental status (13) Pneumonia Kurt Flores Nov 07, 2020 15:53
[2020-11-07 16:00] VITALS: BP 156/78
--- NOTE | 2020-11-07 17:11 | Cardiology Progress Note ---
Assessment/Plan Status Narrative 1. COVID-19 viral PNA low grade fever antiviral tx per ID 2. HFrEF, acute on chronic systolic on diastolic HF with EF 35-40% BNP severely elevated Fluid balance with HD Troponin 0.004 3. ESRD on HD Aneuric 4. HTN - under better control 5. Mitral regurgitation - mod-severe contributing to severity of HF 6. possible ASD with L to R shunt 7. Sinus tachycardia 2/2 viral PNA and fever rate controlled, in SR SBP elevated, fluid balance with HD. Tx for viral PNA per ID. No acute events. Subjective ROS Limited/Unobtainable: Yes Subjective Low grade fever Objective Last 24 Hour Vital Signs Date Time Temp Pulse Resp B/P (MAP) Pulse Ox O2 Delivery O2 Flow Rate FiO2 11/07/20 11:33 96.8 80 18 159/79 (105) 98 11/07/20 08:00 97.8 78 18 138/75 (96) 96 11/07/20 04:00 97.7 83 21 177/89 (118) 97 11/07/20 00:00 97.9 82 20 156/79 (104) 97 11/06/20 22:54 Nasal Cannula 2.0 11/06/20 20:00 97.9 82 20 157/86 (109) 97 Intake and Output 11/06/20 11/07/20 19:00 07:00 Intake Total 838 ml 250 ml Balance 838 ml 250 ml Intake Oral 838 ml 250 ml Laboratory Tests Test 11/07/20 11:29 POC Whole Blood Glucose 101 MG/DL (74-106) Pamela Chowdhury PA-C Nov 07, 2020 17:11
--- NOTE | 2020-11-07 17:33 | General Progress Note ---
Subjective Allergies: Coded Allergies: No Known Allergies (Unverified , 09/23/20) Subjective awake eating better blood sugar are improving Objective Last 24 Hour Vital Signs Date Time Temp Pulse Resp B/P (MAP) Pulse Ox O2 Delivery O2 Flow Rate FiO2 11/07/20 11:33 96.8 80 18 159/79 (105) 98 11/07/20 08:00 97.8 78 18 138/75 (96) 96 11/07/20 04:00 97.7 83 21 177/89 (118) 97 11/07/20 00:00 97.9 82 20 156/79 (104) 97 11/06/20 22:54 Nasal Cannula 2.0 11/06/20 20:00 97.9 82 20 157/86 (109) 97 Intake and Output 11/06/20 11/07/20 19:00 07:00 Intake Total 838 ml 250 ml Balance 838 ml 250 ml Intake Oral 838 ml 250 ml Laboratory Tests 11/07/20 11:29: POC Whole Blood Glucose 101 Height (Feet): 5 Height (Inches): 1.00 Weight (Pounds): 92 General Appearance: no apparent distress EENT: PERRL/EOMI Neck: supple Cardiovascular: regular rhythm Respiratory/Chest: lungs clear Abdomen: non tender, soft Extremities: non-tender Assessment/Plan Status: stable Assessment/Plan: 1 sob 2 covid pna cont isolation 3 chf diastolic acute 4 esrd on hd 5 failure of thrive 6 dementia 7 dm poory controlled due to steroids 8 hypotension 9 hyperkalemia rpt ok add levamier and high dose short insulin pt/ot eval dw pt pt is very weak iv abx hd cardio and pulmonary consult cont current tx Cesar Swanson MD Nov 07, 2020 17:33
[2020-11-07] MEDS: HydrALAZINE 25mg tab ORAL SCH (17:50)
--- NOTE | 2020-11-07 19:49 | NUR ---
NURSE HAND-OFF: Important Events on Shift:Plans for HD 11/07 at night, all BP meds held for HD Patient Status: stable Diet: Renal (FEED) Pending Orders: Labs in AM Pending Results/Labs: CBC BMP CMP PHOS 11/08 Pending MD notification:none Latest Vital Signs: Temperature 97.0 , Pulse 83 , B/P 156 /78 , Respiratory Rate 20 , O2 SAT 98 , Nasal Cannula, O2 Flow Rate 2.0 . Vital Sign Comment: none Latest Ness Fall Score: 50 Fall Risk: High Risk Safety Measures: Call light Within Reach, Bed Alarm Zone 1, Side Rails Side Rails x2, Bed position Low and Locked. Fall Precautions: Yellow Socks Yellow Gown Door Sign Patient Fall Education Report given to Naye ESTEVEZ.
[2020-11-07 20:00] VITALS: BP 151/72
[2020-11-07] MEDS: Levemir Flexpen SUBQ SCH (20:00)
[2020-11-08] VITALS: BP 150/83
[2020-11-08] MEDS: HydrALAZINE 25mg tab ORAL SCH ×4 (01:04→18:59)
[2020-11-08 04:00] VITALS: BP 143/77
[2020-11-08 05:49] LABS: BASOPHILS % (AUTO) 0.5 % (0.0-2.0); EOSINOPHILS % (AUTO) 1.9 % (0.0-3.0); HEMATOCRIT 32.5 % (37.0-47.0); HEMOGLOBIN 10.4 G/DL (12.0-16.0); LYMPHOCYTES % (AUTO) 11.5 % (20.0-45.0); MEAN CORPUSCULAR VOLUME 98 FL (80-99); MONOCYTES % (AUTO) 8.9 % (1.0-10.0); NEUTROPHILS % (AUTO) 77.3 % (45.0-75.0); PLATELET COUNT 194 K/UL (150-450); RED CELL DISTRIBUTION WIDTH 18.2 % (11.6-14.8); WHITE BLOOD COUNT 8.7 K/UL (4.8-10.8)
[2020-11-08 06:18] LABS: ALBUMIN 2.6 G/DL (3.4-5.0); ALBUMIN/GLOBULIN RATIO 0.5 (1.0-2.7); BILIRUBIN,TOTAL 0.4 MG/DL (0.2-1.0); CREATININE 5.2 MG/DL (0.55-1.30); POTASSIUM 4.8 MMOL/L (3.5-5.1)
[2020-11-08] MEDS: NovoLOG Insulin Flexpen SUBQ SCH ×4 (06:30→21:00)
--- NOTE | 2020-11-08 07:31 | NUR ---
NURSE NOTES: Report received from Naye ESTEVEZ, rounds made. Patient sleeping, awakens to name and touch. RH saline lock intact, wrapped in kerlix. Left subclavian dressing CDI. Respirations even/unlabored on O2 2LNC. P200 mattress [address]. Will provide skin care and turns every 2 hours. Call light in reach, bed in lowest position, will continue to monitor.
--- NOTE | 2020-11-08 07:51 | NUR ---
NURSE HAND-OFF: Important Events on Shift:[UNEVENTFUL NIGHT, BSL WNL, NO INSULIN COVERAGE-HD 11/08 2L OUTPUT, TOLERATED WELL] Patient Status: [STABLE, AFEBRILE] Diet: [RENAL 1:1 FEEDER] Pending Orders: [AM LABS] Pending Results/Labs:[] Pending MD notification:[] Latest Vital Signs: Temperature 97.3 , Pulse 79 , B/P 137 /79 , Respiratory Rate 18 , O2 SAT 96 , Nasal Cannula, O2 Flow Rate 2.0 . Vital Sign Comment: [STABLE, AFEBRILE] Latest Ness Fall Score: 50 Fall Risk: High Risk Safety Measures: Call light Within Reach, Bed Alarm Zone 1, Side Rails Side Rails x2, Bed position Low and Locked. Fall Precautions: Yellow Socks Yellow Gown Door Sign Patient Fall Education Report given to [ZENAIDA LOMELI].
[2020-11-08 08:00] VITALS: BP 150/77
--- NOTE | 2020-11-08 08:12 | Hematology/Onc Progress Note ---
Assessment/Plan Assessment/Plan # Anemia of chronic disease due to underlying chronic medical issues, multifactorial v Gi bleed --> Anemia workup has been ordered, rule out gi bleed --> No evidence of hemolysis is noted, peripheral smear has been reviewed. --> Hgb goal >7. Transfuse prn --> Epogen or iron at this time is not particularly indicated --> Medications have been reviewed --> low threshold for gi evaluation in case has occult + --> hgb 11-->9.6-->10.4 # Covid pna cont isolation -> completed steriods --> per pulm recs # chf diastolic acute -> cards aware # Esrd on hd --> per renal # failure of thrive # dementia # dm poory controlled due to steroids Appreciate consultation and dw PCP Subjective HEENT: Denies: no symptoms, eye pain, blurred vision, tearing, double vision, ear pain, ear discharge, nose pain, nose congestion, throat pain, throat swelling, mouth pain, mouth swelling, other Cardiovascular: Denies: no symptoms, chest pain, edema, irregular heart rate, lightheadedness, palpitations, syncope, other Respiratory: Denies: no symptoms, cough, shortness of breath, SOB with excertion, SOB at rest, sputum, wheezing, other Gastrointestinal/Abdominal: Denies: no symptoms, abdomen distended, abdominal pain, black stools, tarry stools, blood in stool, constipated, diarrhea, difficulty swallowing, nausea, poor appetite, poor fluid intake, rectal bleeding, vomiting, other Neurologic/Psychiatric: Denies: no symptoms, anxiety, depressed, emotional problems, headache, numbness, paresthesia, pre-existing deficit, seizure, tingling, tremors, weakness, other Endocrine: Denies: no symptoms, excessive sweating, flushing, intolerance to cold, intolerance to heat, increased hunger, increased thirst, increased urine, unexplained weight gain, unexplained weight loss, other Hematologic/Lymphatic: Denies: no symptoms, anemia, easy bleeding, easy bruising, adenopathy, other Allergies: Coded Allergies: No Known Allergies (Unverified , 09/23/20) Subjective 11/04 labs are noted, no bleeding, meds reviewed, on steriods, seen by pulm 11/05 hd done yesterday, no bleeding, cbc is pending 11/06 awake, alert, labs are pending, reviewed moving consultant recs 11/07 meds reviewed, labs noted, no bleeding 11/08 labs are noted, no bleeding, meds are reviewed Objective Objective Current Medications Medications (Trade) Dose Ordered Sig/Yeimi Route PRN Reason Start Time Stop Time Status Last Admin Dose Admin Acetaminophen (Tylenol) 650 mg Q4H PRN ORAL Temp >100.5 10/27/20 14:15 11/26/20 14:14 11/05/20 17:22 Amlodipine Besylate (Norvasc) 5 mg DAILY ORAL 11/08/20 09:00 12/08/20 08:59 Citalopram Hydrobromide (CeleXA) 20 mg DAILY ORAL 10/29/20 09:00 11/28/20 08:59 11/07/20 10:19 Dextrose (Dextrose 50%) 25 ml Q30M PRN IV Hypoglycemia 10/28/20 20:45 01/26/21 20:44 Dextrose (Dextrose 50%) 50 ml Q30M PRN IV Hypoglycemia 10/28/20 20:45 01/26/21 20:44 Docusate Sodium (Colace) 100 mg TWICE A DAY ORAL 10/28/20 18:00 11/27/20 17:59 11/07/20 17:51 Haloperidol Lactate (Haldol) 5 mg Q6H PRN IM Agitation 10/28/20 15:45 12/12/20 15:44 Hydralazine HCl (Apresoline) 25 mg Q4H PRN ORAL For BP over 160 systolic 11/06/20 16:15 02/04/21 16:14 Hydralazine HCl (Apresoline) 25 mg Q6HR ORAL 11/07/20 18:00 02/05/21 17:59 11/08/20 06:49 Insulin Aspart (NovoLOG) BEFORE MEALS AND HS SUBQ 10/28/20 21:00 01/26/21 20:59 11/06/20 20:19 Insulin Detemir (Levemir) 10 units Q24H SUBQ 10/29/20 20:00 01/27/21 19:59 11/06/20 20:17 Megestrol Acetate (Megace) 400 mg DAILY ORAL 10/28/20 09:00 01/26/21 08:59 11/07/20 10:18 Pantoprazole (Protonix) 40 mg EVERY 12 HOURS ORAL 10/28/20 21:00 11/27/20 20:59 11/07/20 23:18 Sevelamer Carbonate (Renvela) 800 mg THREE TIMES A DAY ORAL 10/28/20 13:00 01/26/21 12:59 11/07/20 17:52 Zinc Sulfate (Zinc Sulfate) 220 mg DAILY ORAL 11/02/20 09:00 11/12/20 08:59 11/07/20 10:18 Last 24 Hour Vital Signs Date Time Temp Pulse Resp B/P (MAP) Pulse Ox O2 Delivery O2 Flow Rate FiO2 11/08/20 06:49 137/79 11/08/20 04:00 97.3 79 18 143/77 (99) 96 11/08/20 01:04 154/81 11/08/20 00:00 97.9 85 18 150/83 (105) 97 11/07/20 21:00 Nasal Cannula 2.0 11/07/20 20:00 97.6 87 18 151/72 (98) 99 11/07/20 16:00 97.0 83 20 156/78 (104) 98 11/07/20 11:33 96.8 80 18 159/79 (105) 98 11/07/20 09:00 Nasal Cannula 2.0 11/07/20 08:00 97.8 78 18 138/75 (96) 96 11/07/20 04:00 97.7 83 21 177/89 (118) 97 11/07/20 00:00 97.9 82 20 156/79 (104) 97 11/06/20 22:54 Nasal Cannula 2.0 11/06/20 20:00 97.9 82 20 157/86 (109) 97 11/06/20 16:00 97.1 81 20 162/86 (111) 97 11/06/20 12:00 97.2 81 17 172/86 (114) 98 11/06/20 09:00 Nasal Cannula 2.0 Intake and Output 11/07/20 11/08/20 19:00 07:00 Intake Total 480 ml 240 ml Balance 480 ml 240 ml Intake Oral 480 ml 240 ml # Bowel Movements 1 1 Labs Test 11/05/20 11:59 11/05/20 16:59 11/05/20 17:01 11/05/20 20:39 POC Whole Blood Glucose 201 MG/DL (74-106) 124 MG/DL (74-106) 260 MG/DL (74-106) Test 11/06/20 08:35 11/06/20 12:12 11/06/20 16:44 11/07/20 11:29 White Blood Count 9.1 K/UL (4.8-10.8) Red Blood Count 3.20 M/UL (4.20-5.40) Hemoglobin 9.9 G/DL (12.0-16.0) Hematocrit 31.6 % (37.0-47.0) Mean Corpuscular Volume 99 FL (80-99) Mean Corpuscular Hemoglobin 31.0 PG (27.0-31.0) Mean Corpuscular Hemoglobin Concent 31.4 G/DL (32.0-36.0) Red Cell Distribution Width 18.4 % (11.6-14.8) Platelet Count 238 K/UL (150-450) Mean Platelet Volume 7.4 FL (6.5-10.1) Neutrophils (%) (Auto) 70.6 % (45.0-75.0) Lymphocytes (%) (Auto) 13.3 % (20.0-45.0) Monocytes (%) (Auto) 15.0 % (1.0-10.0) Eosinophils (%) (Auto) 0.4 % (0.0-3.0) Basophils (%) (Auto) 0.6 % (0.0-2.0) Sodium Level 144 MMOL/L (136-145) Potassium Level 5.1 MMOL/L (3.5-5.1) Chloride Level 106 MMOL/L (98-107) Carbon Dioxide Level 29 MMOL/L (21-32) Anion Gap 9 mmol/L (5-15) Blood Urea Nitrogen 91 mg/dL (7-18) Creatinine 5.8 MG/DL (0.55-1.30) Estimat Glomerular Filtration Rate 7.1 mL/min (>60) Glucose Level 145 MG/DL (74-106) Calcium Level 8.9 MG/DL (8.5-10.1) Phosphorus Level 5.8 MG/DL (2.5-4.9) Magnesium Level 2.1 MG/DL (1.8-2.4) Total Bilirubin 0.4 MG/DL (0.2-1.0) Aspartate Amino Transf (AST/SGOT) 14 U/L (15-37) Alanine Aminotransferase (ALT/SGPT) 15 U/L (12-78) Alkaline Phosphatase 117 U/L (46-116) Total Protein 7.3 G/DL (6.4-8.2) Albumin 2.5 G/DL (3.4-5.0) Globulin 4.8 g/dL Albumin/Globulin Ratio 0.5 (1.0-2.7) POC Whole Blood Glucose 134 MG/DL (74-106) 253 MG/DL (74-106) 101 MG/DL (74-106) Test 11/07/20 17:54 11/07/20 23:06 11/08/20 04:50 11/08/20 06:51 POC Whole Blood Glucose 94 MG/DL (74-106) 91 MG/DL (74-106) 94 MG/DL (74-106) White Blood Count 8.7 K/UL (4.8-10.8) Red Blood Count 3.30 M/UL (4.20-5.40) Hemoglobin 10.4 G/DL (12.0-16.0) Hematocrit 32.5 % (37.0-47.0) Mean Corpuscular Volume 98 FL (80-99) Mean Corpuscular Hemoglobin 31.5 PG (27.0-31.0) Mean Corpuscular Hemoglobin Concent 32.1 G/DL (32.0-36.0) Red Cell Distribution Width 18.2 % (11.6-14.8) Platelet Count 194 K/UL (150-450) Mean Platelet Volume 8.6 FL (6.5-10.1) Neutrophils (%) (Auto) 77.3 % (45.0-75.0) Lymphocytes (%) (Auto) 11.5 % (20.0-45.0) Monocytes (%) (Auto) 8.9 % (1.0-10.0) Eosinophils (%) (Auto) 1.9 % (0.0-3.0) Basophils (%) (Auto) 0.5 % (0.0-2.0) Sodium Level 140 MMOL/L (136-145) Potassium Level 4.8 MMOL/L (3.5-5.1) Chloride Level 102 MMOL/L (98-107) Carbon Dioxide Level 31 MMOL/L (21-32) Anion Gap 7 mmol/L (5-15) Blood Urea Nitrogen 69 mg/dL (7-18) Creatinine 5.2 MG/DL (0.55-1.30) Estimat Glomerular Filtration Rate 8.0 mL/min (>60) Glucose Level 98 MG/DL (74-106) Calcium Level 9.0 MG/DL (8.5-10.1) Phosphorus Level 5.0 MG/DL (2.5-4.9) Total Bilirubin 0.4 MG/DL (0.2-1.0) Aspartate Amino Transf (AST/SGOT) 14 U/L (15-37) Alanine Aminotransferase (ALT/SGPT) 15 U/L (12-78) Alkaline Phosphatase 108 U/L (46-116) Total Protein 7.4 G/DL (6.4-8.2) Albumin 2.6 G/DL (3.4-5.0) Globulin 4.8 g/dL Albumin/Globulin Ratio 0.5 (1.0-2.7) Height (Feet): 5 Height (Inches): 1.00 Weight (Pounds): 92 Objective Gen: nad Pulm: ctab CV: rrr Abd: soft, nt, nd ext: no cce Timothy Lam MD Nov 08, 2020 08:12
[2020-11-08] MEDS: Docusate 100mg cap ORAL SCH ×2 (09:25→18:26)
[2020-11-08] MEDS: Citalopram Hydrobromide 10mg Tab ORAL SCH (09:25)
[2020-11-08] MEDS: Megace 400mg/10ml Susp ORAL SCH (09:26)
[2020-11-08] MEDS: Zinc Sulfate 220mg ORAL SCH (09:26)
--- NOTE | 2020-11-08 11:13 | Infectious Diseases Prog Note ---
Assessment/Plan Assessment/Plan antibiotics : none A 1. COVID-19 pneumonia on 2 L oxygen with O2 saturation of 98 %. s/p ivermectin s/p decadron 2. Renal failure, on dialysis. 3. Congestive heart failure. 4. Right eye conjunctivitis improving 5. hypertension P 1. continue off antibiotics 2. continue isolation Subjective ROS Limited/Unobtainable: Yes Allergies: Coded Allergies: No Known Allergies (Unverified , 09/23/20) Objective Last 24 Hour Vital Signs Date Time Temp Pulse Resp B/P (MAP) Pulse Ox O2 Delivery O2 Flow Rate FiO2 11/08/20 09:26 77 150/77 11/08/20 08:00 98.2 77 18 150/77 (101) 99 11/08/20 06:49 137/79 11/08/20 04:00 97.3 79 18 143/77 (99) 96 11/08/20 01:04 154/81 11/08/20 00:00 97.9 85 18 150/83 (105) 97 11/07/20 21:00 Nasal Cannula 2.0 11/07/20 20:00 97.6 87 18 151/72 (98) 99 11/07/20 16:00 97.0 83 20 156/78 (104) 98 11/07/20 11:33 96.8 80 18 159/79 (105) 98 Height (Feet): 5 Height (Inches): 1.00 Weight (Pounds): 92 Laboratory Tests Test 11/07/20 11:29 11/07/20 17:54 11/07/20 23:06 11/08/20 04:50 POC Whole Blood Glucose 101 MG/DL (74-106) 94 MG/DL (74-106) 91 MG/DL (74-106) White Blood Count 8.7 K/UL (4.8-10.8) Red Blood Count 3.30 M/UL (4.20-5.40) L Hemoglobin 10.4 G/DL (12.0-16.0) L Hematocrit 32.5 % (37.0-47.0) L Mean Corpuscular Volume 98 FL (80-99) Mean Corpuscular Hemoglobin 31.5 PG (27.0-31.0) H Mean Corpuscular Hemoglobin Concent 32.1 G/DL (32.0-36.0) Red Cell Distribution Width 18.2 % (11.6-14.8) H Platelet Count 194 K/UL (150-450) Mean Platelet Volume 8.6 FL (6.5-10.1) Neutrophils (%) (Auto) 77.3 % (45.0-75.0) H Lymphocytes (%) (Auto) 11.5 % (20.0-45.0) L Monocytes (%) (Auto) 8.9 % (1.0-10.0) Eosinophils (%) (Auto) 1.9 % (0.0-3.0) Basophils (%) (Auto) 0.5 % (0.0-2.0) Sodium Level 140 MMOL/L (136-145) Potassium Level 4.8 MMOL/L (3.5-5.1) Chloride Level 102 MMOL/L (98-107) Carbon Dioxide Level 31 MMOL/L (21-32) Anion Gap 7 mmol/L (5-15) Blood Urea Nitrogen 69 mg/dL (7-18) H Creatinine 5.2 MG/DL (0.55-1.30) H Estimat Glomerular Filtration Rate 8.0 mL/min (>60) Glucose Level 98 MG/DL (74-106) Calcium Level 9.0 MG/DL (8.5-10.1) Phosphorus Level 5.0 MG/DL (2.5-4.9) H Total Bilirubin 0.4 MG/DL (0.2-1.0) Aspartate Amino Transf (AST/SGOT) 14 U/L (15-37) L Alanine Aminotransferase (ALT/SGPT) 15 U/L (12-78) Alkaline Phosphatase 108 U/L (46-116) Total Protein 7.4 G/DL (6.4-8.2) Albumin 2.6 G/DL (3.4-5.0) L Globulin 4.8 g/dL Albumin/Globulin Ratio 0.5 (1.0-2.7) L Test 11/08/20 06:51 POC Whole Blood Glucose 94 MG/DL (74-106) Current Medications Medications (Trade) Dose Ordered Sig/Yeimi Route PRN Reason Start Time Stop Time Status Last Admin Dose Admin Acetaminophen (Tylenol) 650 mg Q4H PRN ORAL Temp >100.5 10/27/20 14:15 11/26/20 14:14 11/05/20 17:22 Amlodipine Besylate (Norvasc) 5 mg DAILY ORAL 11/08/20 09:00 12/08/20 08:59 11/08/20 09:26 Citalopram Hydrobromide (CeleXA) 20 mg DAILY ORAL 10/29/20 09:00 11/28/20 08:59 11/08/20 09:25 Dextrose (Dextrose 50%) 25 ml Q30M PRN IV Hypoglycemia 10/28/20 20:45 01/26/21 20:44 Dextrose (Dextrose 50%) 50 ml Q30M PRN IV Hypoglycemia 10/28/20 20:45 01/26/21 20:44 Docusate Sodium (Colace) 100 mg TWICE A DAY ORAL 10/28/20 18:00 11/27/20 17:59 11/08/20 09:25 Haloperidol Lactate (Haldol) 5 mg Q6H PRN IM Agitation 10/28/20 15:45 12/12/20 15:44 Hydralazine HCl (Apresoline) 25 mg Q4H PRN ORAL For BP over 160 systolic 11/06/20 16:15 02/04/21 16:14 Hydralazine HCl (Apresoline) 25 mg Q6HR ORAL 11/07/20 18:00 02/05/21 17:59 11/08/20 06:49 Insulin Aspart (NovoLOG) BEFORE MEALS AND HS SUBQ 10/28/20 21:00 01/26/21 20:59 11/06/20 20:19 Insulin Detemir (Levemir) 10 units Q24H SUBQ 10/29/20 20:00 01/27/21 19:59 11/06/20 20:17 Megestrol Acetate (Megace) 400 mg DAILY ORAL 10/28/20 09:00 01/26/21 08:59 11/08/20 09:26 Pantoprazole (Protonix) 40 mg EVERY 12 HOURS ORAL 10/28/20 21:00 11/27/20 20:59 11/08/20 09:26 Sevelamer Carbonate (Renvela) 800 mg THREE TIMES A DAY ORAL 10/28/20 13:00 01/26/21 12:59 11/08/20 09:26 Zinc Sulfate (Zinc Sulfate) 220 mg DAILY ORAL 11/02/20 09:00 11/12/20 08:59 11/08/20 09:26 Erika Stiles MD Nov 08, 2020 11:13
--- NOTE | 2020-11-08 12:55 | Surgery Progress Note ---
Surgery Progress Note Subjective Additional Comments no acute events comfortable no complaints Objective Last 24 Hour Vital Signs Date Time Temp Pulse Resp B/P (MAP) Pulse Ox O2 Delivery O2 Flow Rate FiO2 11/08/20 09:26 77 150/77 11/08/20 08:00 98.2 77 18 150/77 (101) 99 11/08/20 06:49 137/79 11/08/20 04:00 97.3 79 18 143/77 (99) 96 11/08/20 01:04 154/81 11/08/20 00:00 97.9 85 18 150/83 (105) 97 11/07/20 21:00 Nasal Cannula 2.0 11/07/20 20:00 97.6 87 18 151/72 (98) 99 11/07/20 16:00 97.0 83 20 156/78 (104) 98 I&O Intake and Output 11/07/20 11/08/20 19:00 07:00 Intake Total 480 ml 240 ml Balance 480 ml 240 ml Intake Oral 480 ml 240 ml # Bowel Movements 1 1 Dressing: saturated Cardiovascular: RSR Respiratory: decreased breath sounds Abdomen: soft, non-tender, present bowel sounds, non-distended Extremities: no edema, no tenderness, no cyanosis Laboratory Tests Test 11/07/20 17:54 11/07/20 23:06 11/08/20 04:50 11/08/20 06:51 POC Whole Blood Glucose 94 MG/DL (74-106) 91 MG/DL (74-106) 94 MG/DL (74-106) White Blood Count 8.7 K/UL (4.8-10.8) Red Blood Count 3.30 M/UL (4.20-5.40) L Hemoglobin 10.4 G/DL (12.0-16.0) L Hematocrit 32.5 % (37.0-47.0) L Mean Corpuscular Volume 98 FL (80-99) Mean Corpuscular Hemoglobin 31.5 PG (27.0-31.0) H Mean Corpuscular Hemoglobin Concent 32.1 G/DL (32.0-36.0) Red Cell Distribution Width 18.2 % (11.6-14.8) H Platelet Count 194 K/UL (150-450) Mean Platelet Volume 8.6 FL (6.5-10.1) Neutrophils (%) (Auto) 77.3 % (45.0-75.0) H Lymphocytes (%) (Auto) 11.5 % (20.0-45.0) L Monocytes (%) (Auto) 8.9 % (1.0-10.0) Eosinophils (%) (Auto) 1.9 % (0.0-3.0) Basophils (%) (Auto) 0.5 % (0.0-2.0) Sodium Level 140 MMOL/L (136-145) Potassium Level 4.8 MMOL/L (3.5-5.1) Chloride Level 102 MMOL/L (98-107) Carbon Dioxide Level 31 MMOL/L (21-32) Anion Gap 7 mmol/L (5-15) Blood Urea Nitrogen 69 mg/dL (7-18) H Creatinine 5.2 MG/DL (0.55-1.30) H Estimat Glomerular Filtration Rate 8.0 mL/min (>60) Glucose Level 98 MG/DL (74-106) Calcium Level 9.0 MG/DL (8.5-10.1) Phosphorus Level 5.0 MG/DL (2.5-4.9) H Total Bilirubin 0.4 MG/DL (0.2-1.0) Aspartate Amino Transf (AST/SGOT) 14 U/L (15-37) L Alanine Aminotransferase (ALT/SGPT) 15 U/L (12-78) Alkaline Phosphatase 108 U/L (46-116) Total Protein 7.4 G/DL (6.4-8.2) Albumin 2.6 G/DL (3.4-5.0) L Globulin 4.8 g/dL Albumin/Globulin Ratio 0.5 (1.0-2.7) L Plan Problems: (1) Decubitus skin ulcer Assessment & Plan: Pt presented on admission with multiple Pressure Injuries. DTPI Sacrum(L)8cm x (W)8cm. Base of wound is purpuric with surrounding non- Blanchable erythema. Darker skin tone without erythema or induration periwound. Pt complained at site of DTPI when minimally palpated. Non-Blanchable erythema without induration R Ischium(L)7cm x (W)7.5cm. L Heel is boggy with non-Blanchable erythema. R heel is Boggy with non-blanchable erythema. Tx.Plan: Apply Moisture Barrier Paste to Sacrum. Cover with Optifoam drsg. Change every 3 days and prn.. Apply Moisture Barrier Paste to R and L Ischial tuberosities. Cover each Ischium with Optifoam drsgs. Change every 3 days and prn. Apply Cavilon Skin Barrier to R and L Heels and each Malleoli. Cover each site with Optifoam drsgs. Change every 7 days and prn. Cover Bony prominences as needed with Optifoam drsgs. Reposition at least every 2 hours or as tolerated. Off-load heels with Pillow. (2) Dyspnea (3) Respiratory distress (4) Pneumonia due to COVID-19 virus Assessment & Plan: ++ on tx id and pulm input appreciated limited movement will need to be cautions to ensure not worsening decub (5) Hypoglycemia (6) End stage renal disease on dialysis (7) Transient hypotension (8) Diastolic CHF, chronic (9) C. difficile colitis (10) Diarrhea Assessment & Plan: DAILY ESTIMATED NEEDS: Needs based on ESRD on HD 42kg 30-40 kcals/kg 3255-2154 total kcals 1.25-1.8 g protein/kg 53-76 g total protein Fluid per MD, on HD NUTRITION DIAGNOSIS: Increased kcal and pro needs r/t renal dysfunction, wound healing as evidenced by pt w/ ESRD on HD, admitted w/ wounds, including sacral DTPI. CURRENT DIET:Renal diet PO DIET RECOMMENDATIONS: Maintain renal diet/ texture per [employer] ADDITIONAL RECOMMENDATIONS: 1) Daily wts, calibrated bed scale 2) Rec [employer] eval for appropriate texture 3) Add NEPRO TID w/ meals (425 kcal/ 19g pro per pack) 4) Monitor for hypoglycemia w/ variable PO 5) Wound healing: Nephrovite x 1, ZnSO4 220mg QD x 10 days Abdirahman BID as tolerated (11) ESRD (end stage renal disease) (12) Altered mental status (13) Pneumonia Kurt Flores Nov 08, 2020 12:55
--- NOTE | 2020-11-08 13:08 | Pulmonology Progress Note ---
Subjective ROS Limited/Unobtainable: Yes Interval Events: none major reported per nursing Constitutional: Denies: fever, chills HEENT: Repors: no symptoms Respiratory: Reports: no symptoms Cardiovascular: Reports: no symptoms Gastrointestinal/Abdominal: Denies: nausea, vomiting, diarrhea Musculoskeletal: Denies: pain Allergies: Coded Allergies: No Known Allergies (Unverified , 09/23/20) Objective Last 24 Hour Vital Signs Date Time Temp Pulse Resp B/P (MAP) Pulse Ox O2 Delivery O2 Flow Rate FiO2 11/08/20 09:26 77 150/77 11/08/20 08:00 98.2 77 18 150/77 (101) 99 11/08/20 06:49 137/79 11/08/20 04:00 97.3 79 18 143/77 (99) 96 11/08/20 01:04 154/81 11/08/20 00:00 97.9 85 18 150/83 (105) 97 11/07/20 21:00 Nasal Cannula 2.0 11/07/20 20:00 97.6 87 18 151/72 (98) 99 11/07/20 16:00 97.0 83 20 156/78 (104) 98 Intake and Output 11/07/20 11/08/20 19:00 07:00 Intake Total 480 ml 240 ml Balance 480 ml 240 ml Intake Oral 480 ml 240 ml # Bowel Movements 1 1 Objective 11/08 s/p dialysis; saturating well on 2 lpm NC 11/07/2020 s/p dialysis 11/06/2020 pt being seen by PT; saturating well on 2 lpm NC; due for dialysis today 11/05/2020 pt asleep; s/p dialysis; saturating well on 2 lpm NC 11/04/2020 pt asleep; saturating well on 2 lpm NC; NAD 11/03/2020 saturating well on 2 lpm NC; eating in bed; NAD 11/02/2020 saturating well on 1 lpm NC; s/p dialysis 11/01/2020 saturating well on 1 lpm NC 10/31/2020 patient alert; saturating well on 1 lpm NC 10/30/2020 pt asleep; saturating well on low flow oxygen 10/29/2020 pt asleep in bed; saturating well on low flow oxygen General Appearance: cachetic HEENT: normocephalic, atraumatic Respiratory: chest wall non-tender, rhonchi - bilaterally, other - dialysis catheter Cardiovascular: normal rate, regular rhythm Abdomen: soft, non tender Laboratory Tests 11/07/20 17:54: POC Whole Blood Glucose 94 11/07/20 23:06: POC Whole Blood Glucose 91 11/08/20 04:50: White Blood Count 8.7, Red Blood Count 3.30L, Hemoglobin 10.4L, Hematocrit 32.5L , Mean Corpuscular Volume 98, Mean Corpuscular Hemoglobin 31.5H, Mean Corpuscular Hemoglobin Concent 32.1, Red Cell Distribution Width 18.2H, Platelet Count 194, Mean Platelet Volume 8.6, Neutrophils (%) (Auto) 77.3H, Lymphocytes (%) (Auto) 11.5L, Monocytes (%) (Auto) 8.9, Eosinophils (%) (Auto) 1.9, Basophils (%) (Auto) 0.5, Sodium Level 140, Potassium Level 4.8, Chloride Level 102, Carbon Dioxide Level 31, Anion Gap 7, Blood Urea Nitrogen 69H, Creatinine 5.2H, Estimat Glomerular Filtration Rate 8.0, Glucose Level 98, Calcium Level 9.0, Phosphorus Level 5.0H, Total Bilirubin 0.4, Aspartate Amino Transf (AST/SGOT) 14L, Alanine Aminotransferase (ALT/SGPT) 15, Alkaline Phosphatase 108, Total Protein 7.4, Albumin 2.6L, Globulin 4.8, Albumin/Globulin Ratio 0.5L 11/08/20 06:51: POC Whole Blood Glucose 94 Current Medications Medications (Trade) Dose Ordered Sig/Yeimi Route PRN Reason Start Time Stop Time Status Last Admin Dose Admin Acetaminophen (Tylenol) 650 mg Q4H PRN ORAL Temp >100.5 10/27/20 14:15 11/26/20 14:14 11/05/20 17:22 Amlodipine Besylate (Norvasc) 5 mg DAILY ORAL 11/08/20 09:00 12/08/20 08:59 11/08/20 09:26 Citalopram Hydrobromide (CeleXA) 20 mg DAILY ORAL 10/29/20 09:00 11/28/20 08:59 11/08/20 09:25 Dextrose (Dextrose 50%) 25 ml Q30M PRN IV Hypoglycemia 10/28/20 20:45 01/26/21 20:44 Dextrose (Dextrose 50%) 50 ml Q30M PRN IV Hypoglycemia 10/28/20 20:45 01/26/21 20:44 Docusate Sodium (Colace) 100 mg TWICE A DAY ORAL 10/28/20 18:00 11/27/20 17:59 11/08/20 09:25 Haloperidol Lactate (Haldol) 5 mg Q6H PRN IM Agitation 10/28/20 15:45 12/12/20 15:44 Hydralazine HCl (Apresoline) 25 mg Q4H PRN ORAL For BP over 160 systolic 11/06/20 16:15 02/04/21 16:14 Hydralazine HCl (Apresoline) 25 mg Q6HR ORAL 11/07/20 18:00 02/05/21 17:59 11/08/20 06:49 Insulin Aspart (NovoLOG) BEFORE MEALS AND HS SUBQ 10/28/20 21:00 01/26/21 20:59 11/06/20 20:19 Insulin Detemir (Levemir) 10 units Q24H SUBQ 10/29/20 20:00 01/27/21 19:59 11/06/20 20:17 Megestrol Acetate (Megace) 400 mg DAILY ORAL 10/28/20 09:00 01/26/21 08:59 11/08/20 09:26 Pantoprazole (Protonix) 40 mg EVERY 12 HOURS ORAL 10/28/20 21:00 11/27/20 20:59 11/08/20 09:26 Sevelamer Carbonate (Renvela) 800 mg THREE TIMES A DAY ORAL 10/28/20 13:00 01/26/21 12:59 11/08/20 09:26 Zinc Sulfate (Zinc Sulfate) 220 mg DAILY ORAL 11/02/20 09:00 11/12/20 08:59 11/08/20 09:26 Assessment/Plan Assessment/Plan Assessment/Plan 1. COVID-19 pneumonia. - Continue isolation. - wean down oxygen as tolerated while keeping SaO2 >92%; currently saturating well on 2 lpm NC - CXR 10/27/2020 shows multifocal infiltrate. - s/p decadron - s/p ceftriaxone and azithromycin. - Repeat COVID-19 test 10/29/2020 positive 2. Renal failure, on dialysis. - per renal 3. Congestive heart failure. - BNP >35,000 - 2D echo EF 35-40% - management per cardio 4. Right eye conjunctivitis. - improving 5. DVT ppx - D-dimer 3.08, CRP 16.1 -> 4.0 - 10/29/2020 venous ultrasound unremarkable - On SCD 6. hyperkalemia - per renal We will follow carefully The care of this patient was discussed with my supervising physician Time spent for this encounter was approximately 31 minutes The patient was seen and examined at bedside and all new and available data was reviewed in the patients chart. I agree with the above findings, impression, and plan. (Patient was seen earlier today. Signature timestamp does not reflect patient encounter time) Zbigniew Francis MD Nov 08, 2020 13:08 Naman Krause MD Nov 08, 2020 15:49
[2020-11-08 14:25] VITALS: BP 132/73
--- NOTE | 2020-11-08 15:06 | Nephrology Progress Note ---
Assessment/Plan Problem List: (1) End stage renal disease on dialysis (2) C. difficile colitis (3) Transient hypotension (4) Diastolic CHF, chronic Assessment 75-year-old female presents with respiratory distress and COVID-19 infection Patient has end-stage renal disease and last dialyzed 4 days ago Patient presents with high potassium History of C. difficile colitis History of diabetes mellitus History of hypertension, presents with transient hypotension History of cardiomyopathy and diastolic CHF Plan November 08: Dialyzed yesterday. Labs reviewed. Continue per consultants. Due for dialysis tomorrow. November 07: Due for dialysis today. Blood pressure medication adjusted. Will check lab tomorrow. November 06: Labs reviewed. Medication list reviewed. Will order dialysis for tomorrow. Continue per consultants. Hydralazine 25 mg as needed for high blood pressure ordered. November 05: Discussed with dialysis nurse. Patient was dialyzed late last night. However today's lab results suggestive of high BUN and creatinine. Serum potassium elevated but the repeat is normal. Will hold the Kayexalate. Will attempt another dialysis and order post BUN and creatinine. Reevaluation on November 05 at 3 PM: Stat BMP done as it appears this morning's lab was prior to dialysis even though it was marked 6 AM. The stat dialysis orders will be canceled based on new lab results. Will arrange for next dialysis on November 07 unless she needs it earlier. November 04: Patient due for dialysis today. Blood pressure stable. No UF is scheduled during dialysis. Check labs tomorrow. No can panel drawn today. November 03: Patient was dialyzed yesterday. Labs reviewed. Blood pressure more stable. Due for dialysis tomorrow. No ultrafiltration is ordered. November 02: Dialyzed today. Blood pressure 95 systolic. Parameters for BP medications. Patient asymptomatic. Albumin 25% 100 cc 1 bolus dose ordered. Continue rest. Discussed with RN. November 01: Dialyzed yesterday. Labs reviewed. Medication list reviewed. Blood pressure medication adjusted. Hemodialysis tomorrow. October 31: Due for dialysis today. No labs drawn today. Continue per consultants. Will check can panel tomorrow. Medication list reviewed. Blood pressure stable. October 30: Last dialyzed October 29. Due for dialysis October 31. Continue per consultants. October 29: Patient dialyzed last evening of October 27. Serum creatinine and electrolyte much improved Continue per current treatment plan Per orders Next dialysis today October 29 Check labs in a.m. Subjective ROS Limited/Unobtainable: No Constitutional: Reports: malaise, weakness Objective Objective Last 24 Hour Vital Signs Date Time Temp Pulse Resp B/P (MAP) Pulse Ox O2 Delivery O2 Flow Rate FiO2 11/08/20 14:34 132/73 11/08/20 14:25 99.3 77 16 132/73 (92) 100 11/08/20 09:26 77 150/77 11/08/20 08:00 98.2 77 18 150/77 (101) 99 11/08/20 06:49 137/79 11/08/20 04:00 97.3 79 18 143/77 (99) 96 11/08/20 01:04 154/81 11/08/20 00:00 97.9 85 18 150/83 (105) 97 11/07/20 21:00 Nasal Cannula 2.0 11/07/20 20:00 97.6 87 18 151/72 (98) 99 11/07/20 16:00 97.0 83 20 156/78 (104) 98 Intake and Output 11/07/20 11/08/20 19:00 07:00 Intake Total 480 ml 240 ml Balance 480 ml 240 ml Intake Oral 480 ml 240 ml # Bowel Movements 1 1 Current Medications Medications (Trade) Dose Ordered Sig/Yeimi Route PRN Reason Start Time Stop Time Status Last Admin Dose Admin Acetaminophen (Tylenol) 650 mg Q4H PRN ORAL Temp >100.5 10/27/20 14:15 11/26/20 14:14 11/05/20 17:22 Amlodipine Besylate (Norvasc) 5 mg DAILY ORAL 11/08/20 09:00 12/08/20 08:59 11/08/20 09:26 Citalopram Hydrobromide (CeleXA) 20 mg DAILY ORAL 10/29/20 09:00 11/28/20 08:59 11/08/20 09:25 Dextrose (Dextrose 50%) 25 ml Q30M PRN IV Hypoglycemia 10/28/20 20:45 01/26/21 20:44 Dextrose (Dextrose 50%) 50 ml Q30M PRN IV Hypoglycemia 10/28/20 20:45 01/26/21 20:44 Docusate Sodium (Colace) 100 mg TWICE A DAY ORAL 10/28/20 18:00 11/27/20 17:59 11/08/20 09:25 Haloperidol Lactate (Haldol) 5 mg Q6H PRN IM Agitation 10/28/20 15:45 12/12/20 15:44 Hydralazine HCl (Apresoline) 25 mg Q4H PRN ORAL For BP over 160 systolic 11/06/20 16:15 02/04/21 16:14 Hydralazine HCl (Apresoline) 25 mg Q6HR ORAL 11/07/20 18:00 02/05/21 17:59 11/08/20 14:34 Insulin Aspart (NovoLOG) BEFORE MEALS AND HS SUBQ 10/28/20 21:00 01/26/21 20:59 11/06/20 20:19 Insulin Detemir (Levemir) 10 units Q24H SUBQ 10/29/20 20:00 01/27/21 19:59 11/06/20 20:17 Megestrol Acetate (Megace) 400 mg DAILY ORAL 10/28/20 09:00 01/26/21 08:59 11/08/20 09:26 Pantoprazole (Protonix) 40 mg EVERY 12 HOURS ORAL 10/28/20 21:00 11/27/20 20:59 11/08/20 09:26 Sevelamer Carbonate (Renvela) 800 mg THREE TIMES A DAY ORAL 10/28/20 13:00 01/26/21 12:59 11/08/20 14:33 Zinc Sulfate (Zinc Sulfate) 220 mg DAILY ORAL 11/02/20 09:00 11/12/20 08:59 11/08/20 09:26 Laboratory Tests 11/07/20 17:54: POC Whole Blood Glucose 94 11/07/20 23:06: POC Whole Blood Glucose 91 11/08/20 04:50: White Blood Count 8.7, Red Blood Count 3.30L, Hemoglobin 10.4L, Hematocrit 32.5L , Mean Corpuscular Volume 98, Mean Corpuscular Hemoglobin 31.5H, Mean Corpuscular Hemoglobin Concent 32.1, Red Cell Distribution Width 18.2H, Platelet Count 194, Mean Platelet Volume 8.6, Neutrophils (%) (Auto) 77.3H, Lymphocytes (%) (Auto) 11.5L, Monocytes (%) (Auto) 8.9, Eosinophils (%) (Auto) 1.9, Basophils (%) (Auto) 0.5, Sodium Level 140, Potassium Level 4.8, Chloride Level 102, Carbon Dioxide Level 31, Anion Gap 7, Blood Urea Nitrogen 69H, Creatinine 5.2H, Estimat Glomerular Filtration Rate 8.0, Glucose Level 98, Calcium Level 9.0, Phosphorus Level 5.0H, Total Bilirubin 0.4, Aspartate Amino Transf (AST/SGOT) 14L, Alanine Aminotransferase (ALT/SGPT) 15, Alkaline Phosphatase 108, Total Protein 7.4, Albumin 2.6L, Globulin 4.8, Albumin/Globulin Ratio 0.5L 11/08/20 06:51: POC Whole Blood Glucose 94 11/08/20 14:31: POC Whole Blood Glucose 83 Height (Feet): 5 Height (Inches): 1.00 Weight (Pounds): 92 General Appearance: no apparent distress Cardiovascular: normal rate Respiratory/Chest: decreased breath sounds Abdomen: soft Objective No change Chris Puckett MD Nov 08, 2020 15:06
--- NOTE | 2020-11-08 15:24 | NUR ---
NURSE NOTES: MILAN (Lyle RN, dialysis nurse), notified of new HD orders for 11/09.
[2020-11-08 16:00] VITALS: BP 148/66
--- NOTE | 2020-11-08 16:02 | NUR ---
P.T Weekly Progress Notes: Pt being seen this past week of skilled P.T. Pt currently requires MOD-MAX A X 1 depending on endurance and level of participation . Pt able to sit with mod-SBA at the EOB however still not able to stand and transfer. Overall poor activity tolerance. Will continue to with POC and progression of activities as tolerated.
--- NOTE | 2020-11-08 16:09 | General Progress Note ---
Subjective Allergies: Coded Allergies: No Known Allergies (Unverified , 09/23/20) Subjective sob better awake eating better blood sugar are improving Objective Last 24 Hour Vital Signs Date Time Temp Pulse Resp B/P (MAP) Pulse Ox O2 Delivery O2 Flow Rate FiO2 11/08/20 14:34 132/73 11/08/20 14:25 99.3 77 16 132/73 (92) 100 11/08/20 09:26 77 150/77 11/08/20 08:00 98.2 77 18 150/77 (101) 99 11/08/20 06:49 137/79 11/08/20 04:00 97.3 79 18 143/77 (99) 96 11/08/20 01:04 154/81 11/08/20 00:00 97.9 85 18 150/83 (105) 97 11/07/20 21:00 Nasal Cannula 2.0 11/07/20 20:00 97.6 87 18 151/72 (98) 99 Intake and Output 11/07/20 11/08/20 19:00 07:00 Intake Total 480 ml 240 ml Balance 480 ml 240 ml Intake Oral 480 ml 240 ml # Bowel Movements 1 1 Laboratory Tests 11/07/20 17:54: POC Whole Blood Glucose 94 11/07/20 23:06: POC Whole Blood Glucose 91 11/08/20 04:50: White Blood Count 8.7, Red Blood Count 3.30L, Hemoglobin 10.4L, Hematocrit 32.5L , Mean Corpuscular Volume 98, Mean Corpuscular Hemoglobin 31.5H, Mean Co rpuscular Hemoglobin Concent 32.1, Red Cell Distribution Width 18.2H, Platelet Count 194, Mean Platelet Volume 8.6, Neutrophils (%) (Auto) 77.3H, Lymphocytes (%) (Auto) 11.5L, Monocytes (%) (Auto) 8.9, Eosinophils (%) (Auto) 1.9, Basophils (%) (Auto) 0.5, Sodium Level 140, Potassium Level 4.8, Chloride Level 102, Carbon Dioxide Level 31, Anion Gap 7, Blood Urea Nitrogen 69H, Creatinine 5.2H, Estimat Glomerular Filtration Rate 8.0, Glucose Level 98, Calcium Level 9.0, Phosphorus Level 5.0H, Total Bilirubin 0.4, Aspartate Amino Transf (AST/SGOT) 14L, Alanine Aminotransferase (ALT/SGPT) 15, Alkaline Phosphatase 108, Total Protein 7.4, Albumin 2.6L, Globulin 4.8, Albumin/Globulin Ratio 0.5L 11/08/20 06:51: POC Whole Blood Glucose 94 11/08/20 14:31: POC Whole Blood Glucose 83 Height (Feet): 5 Height (Inches): 1.00 Weight (Pounds): 92 General Appearance: alert EENT: PERRL/EOMI Neck: supple Cardiovascular: regular rhythm Respiratory/Chest: crackles/rales Abdomen: non tender, soft Extremities: non-tender Assessment/Plan Status: stable Assessment/Plan: 1 sob 2 covid pna cont isolation 3 chf diastolic acute 4 esrd on hd 5 failure of thrive 6 dementia 7 dm poory controlled due to steroids 8 hypotension 9 hyperkalemia rpt ok add levamier and high dose short insulin pt/ot eval dw pt pt is very weak iv abx hd cardio and pulmonary consult cont current tx Cesar Swanson MD Nov 08, 2020 16:09
--- NOTE | 2020-11-08 17:28 | NUR ---
CASE MANAGEMENT:REVIW SI;COVID PNA 99.3 77 18 150/77 96% 2L NC BUN 69 CR 5.2 ALB 2.6 IS;MEGACE PO QD PROTONIX PO Q12 ZINC SULFATE PO QD HYDRALAZINE PO Q6 MED SURG STATUS DCP;FROM [facility]
--- NOTE | 2020-11-08 19:43 | NUR ---
NURSE HAND-OFF: Important Events on Shift:Plans for HD 11/09 (confirmed with [facility]) Patient Status: stable Diet: Renal Pending Orders: HD 11/09 Pending Results/Labs:none Pending MD notification:none Latest Vital Signs: Temperature 98.6 , Pulse 82 , B/P 148 /66 , Respiratory Rate 18 , O2 SAT 97 , Nasal Cannula, O2 Flow Rate 2.0 . Vital Sign Comment: none Latest Ness Fall Score: 50 Fall Risk: High Risk Safety Measures: Call light Within Reach, Bed Alarm Zone 1, Side Rails Side Rails x2, Bed position Low and Locked. Fall Precautions: Yellow Socks Yellow Gown Door Sign Patient Fall Education Report given to Isiah RN.
--- NOTE | 2020-11-08 19:50 | NUR ---
NURSE NOTES: The patient is awake and responsive with her care and doesn't seem to be in any acute distress at this time.She is presently on 2 liters of oxygen via NC well tolerated.She is on contact and droplet precaution due to Covid-19.The patient is on hemodialysis and has a Left Sub-clavian PermCath.She has a Right hand 22g saline locked that is patent and asymptomatic.The bed in low level, call light within easy reach, siderails up x2. Will continue to monitor as indicated
[2020-11-08 20:00] VITALS: BP 136/60
[2020-11-08] MEDS: Levemir Flexpen SUBQ SCH (20:00)
[2020-11-09] VITALS: BP 138/66
[2020-11-09 04:00] VITALS: BP 131/70
--- NOTE | 2020-11-09 04:30 | NUR ---
NURSE NOTES: The patient is alert and stable and was able to sleep all night long and doesn't appear to be in any distress. Will continue to monitor as indicated
[2020-11-09] MEDS: NovoLOG Insulin Flexpen SUBQ SCH ×4 (06:30→21:00)
[2020-11-09] MEDS: HydrALAZINE 25mg tab ORAL SCH ×4 (06:39→18:38)
--- NOTE | 2020-11-09 07:10 | NUR ---
NURSE HAND-OFF: Important Events on Shift:Alert and stable, Hemodialysis today, [facility] notified Patient Status: Diet: Pending Orders: Pending Results/Labs: Pending MD notification: Latest Vital Signs: Temperature 99.0 , Pulse 84 , B/P 131 /70 , Respiratory Rate 20 , O2 SAT 97 , Nasal Cannula, O2 Flow Rate 2.0 . Vital Sign Comment: Latest Ness Fall Score: 50 Fall Risk: High Risk Safety Measures: Call light Within Reach, Bed Alarm Zone 1, Side Rails Side Rails x2, Bed position Low and Locked. Fall Precautions: Yellow Socks Yellow Gown Door Sign Patient Fall Education Report given to .
[2020-11-09 07:33] LABS: BASOPHILS % (AUTO) 0.5 % (0.0-2.0); EOSINOPHILS % (AUTO) 1.3 % (0.0-3.0); HEMOGLOBIN 9.9 G/DL (12.0-16.0); LYMPHOCYTES % (AUTO) 8.2 % (20.0-45.0); MEAN CORPUSCULAR VOLUME 98 FL (80-99); MONOCYTES % (AUTO) 7.4 % (1.0-10.0); NEUTROPHILS % (AUTO) 82.6 % (45.0-75.0); PLATELET COUNT 194 K/UL (150-450); RED BLOOD COUNT 3.15 M/UL (4.20-5.40); WHITE BLOOD COUNT 9.8 K/UL (4.8-10.8)
[2020-11-09 07:51] LABS: CALCIUM 8.6 MG/DL (8.5-10.1); CREATININE 6.7 MG/DL (0.55-1.30); POTASSIUM 5.6 MMOL/L (3.5-5.1)
[2020-11-09 08:00] VITALS: BP 143/69
--- NOTE | 2020-11-09 09:50 | Cardiology Progress Note ---
Assessment/Plan Status: stable Status Narrative 1. COVID-19 viral PNA low grade fever, improved antiviral tx per ID 2. HFrEF, acute on chronic systolic on diastolic HF with EF 35-40% BNP severely elevated Fluid balance with HD Troponin negative Good O2 perfusion 3. ESRD on HD Aneuric 4. HTN - under better control 5. Mitral regurgitation - mod-severe contributing to severity of HF 6. possible ASD with L to R shunt 7. Sinus tachycardia 2/2 viral PNA and fever rate controlled, in SR SBP elevated, fluid balance with HD. Tx for viral PNA per ID. No acute events. Subjective ROS Limited/Unobtainable: Yes Cardiovascular: Reports: no symptoms Respiratory: Reports: shortness of breath Gastrointestinal/Abdominal: Reports: poor appetite Genitourinary: Reports: no symptoms Subjective SBP and HR in normal territory, good O2 perfusion Objective Last 24 Hour Vital Signs Date Time Temp Pulse Resp B/P (MAP) Pulse Ox O2 Delivery O2 Flow Rate FiO2 11/09/20 08:00 98.8 77 17 143/69 (93) 99 11/09/20 06:39 131/70 11/09/20 04:00 99.0 84 20 131/70 (90) 97 11/09/20 00:00 138/66 11/09/20 00:00 99.2 81 18 138/66 (90) 97 11/08/20 21:00 Nasal Cannula 2.0 11/08/20 20:00 98.8 82 18 136/60 (85) 98 11/08/20 18:59 148/66 11/08/20 16:00 98.6 82 18 148/66 (93) 97 11/08/20 14:34 132/73 11/08/20 14:25 99.3 77 16 132/73 (92) 100 General Appearance: no apparent distress EENT: PERRL/EOMI Neck: no JVD Rhythm: NSR Cardiovascular: normal rate Respiratory/Chest: respiratory distress Intake and Output 11/08/20 11/09/20 19:00 07:00 Intake Total 300 ml Balance 300 ml Intake Oral 300 ml # Bowel Movements 1 1 Laboratory Tests Test 11/08/20 14:31 11/08/20 18:29 11/09/20 05:51 11/09/20 06:50 POC Whole Blood Glucose 83 MG/DL (74-106) 72 MG/DL (74-106) L 108 MG/DL (74-106) H White Blood Count 9.8 K/UL (4.8-10.8) Red Blood Count 3.15 M/UL (4.20-5.40) L Hemoglobin 9.9 G/DL (12.0-16.0) L Hematocrit 31.0 % (37.0-47.0) L Mean Corpuscular Volume 98 FL (80-99) Mean Corpuscular Hemoglobin 31.5 PG (27.0-31.0) H Mean Corpuscular Hemoglobin Concent 32.0 G/DL (32.0-36.0) Red Cell Distribution Width 18.0 % (11.6-14.8) H Platelet Count 194 K/UL (150-450) Mean Platelet Volume 8.1 FL (6.5-10.1) Neutrophils (%) (Auto) 82.6 % (45.0-75.0) H Lymphocytes (%) (Auto) 8.2 % (20.0-45.0) L Monocytes (%) (Auto) 7.4 % (1.0-10.0) Eosinophils (%) (Auto) 1.3 % (0.0-3.0) Basophils (%) (Auto) 0.5 % (0.0-2.0) Sodium Level 139 MMOL/L (136-145) Potassium Level 5.6 MMOL/L (3.5-5.1) H Chloride Level 102 MMOL/L (98-107) Carbon Dioxide Level 29 MMOL/L (21-32) Anion Gap 8 mmol/L (5-15) Blood Urea Nitrogen 93 mg/dL (7-18) H Creatinine 6.7 MG/DL (0.55-1.30) H Estimat Glomerular Filtration Rate 6.0 mL/min (>60) Glucose Level 105 MG/DL (74-106) Calcium Level 8.6 MG/DL (8.5-10.1) Pamela Chowdhury PA-C Nov 09, 2020 09:50
[2020-11-09] MEDS: Zinc Sulfate 220mg ORAL SCH (10:01)
[2020-11-09] MEDS: Docusate 100mg cap ORAL SCH ×2 (10:01→18:38)
[2020-11-09] MEDS: Megace 400mg/10ml Susp ORAL SCH (10:01)
[2020-11-09] MEDS: Citalopram Hydrobromide 10mg Tab ORAL SCH (10:01)
--- NOTE | 2020-11-09 10:27 | Pulmonology Progress Note ---
Subjective ROS Limited/Unobtainable: Yes Interval Events: none major reported per nursing Constitutional: Denies: fever, chills HEENT: Repors: no symptoms Respiratory: Reports: no symptoms Cardiovascular: Reports: no symptoms Gastrointestinal/Abdominal: Denies: nausea, vomiting, diarrhea Musculoskeletal: Denies: pain Allergies: Coded Allergies: No Known Allergies (Unverified , 09/23/20) Objective Last 24 Hour Vital Signs Date Time Temp Pulse Resp B/P (MAP) Pulse Ox O2 Delivery O2 Flow Rate FiO2 11/09/20 09:00 77 143/69 11/09/20 08:00 98.8 77 17 143/69 (93) 99 11/09/20 06:39 131/70 11/09/20 04:00 99.0 84 20 131/70 (90) 97 11/09/20 00:00 138/66 11/09/20 00:00 99.2 81 18 138/66 (90) 97 11/08/20 21:00 Nasal Cannula 2.0 11/08/20 20:00 98.8 82 18 136/60 (85) 98 11/08/20 18:59 148/66 11/08/20 16:00 98.6 82 18 148/66 (93) 97 11/08/20 14:34 132/73 11/08/20 14:25 99.3 77 16 132/73 (92) 100 Intake and Output 11/08/20 11/09/20 19:00 07:00 Intake Total 300 ml Balance 300 ml Intake Oral 300 ml # Bowel Movements 1 1 Objective 11/09 due for dialysis today; continues to saturate well on 2 lpm NC 11/08 s/p dialysis; saturating well on 2 lpm NC 11/07/2020 s/p dialysis 11/06/2020 pt being seen by PT; saturating well on 2 lpm NC; due for dialysis today 11/05/2020 pt asleep; s/p dialysis; saturating well on 2 lpm NC 11/04/2020 pt asleep; saturating well on 2 lpm NC; NAD 11/03/2020 saturating well on 2 lpm NC; eating in bed; NAD 11/02/2020 saturating well on 1 lpm NC; s/p dialysis 11/01/2020 saturating well on 1 lpm NC 10/31/2020 patient alert; saturating well on 1 lpm NC 10/30/2020 pt asleep; saturating well on low flow oxygen 10/29/2020 pt asleep in bed; saturating well on low flow oxygen General Appearance: cachetic HEENT: normocephalic, atraumatic Respiratory: chest wall non-tender, rhonchi - bilaterally, other - dialysis catheter Cardiovascular: normal rate, regular rhythm Abdomen: soft, non tender Laboratory Tests 11/08/20 14:31: POC Whole Blood Glucose 83 11/08/20 18:29: POC Whole Blood Glucose 72L 11/09/20 05:51: POC Whole Blood Glucose 108H 11/09/20 06:50: White Blood Count 9.8, Red Blood Count 3.15L, Hemoglobin 9.9L, Hematocrit 31.0L, Mean Corpuscular Volume 98, Mean Corpuscular Hemoglobin 31.5H, Mean Corpuscular Hemoglobin Concent 32.0, Red Cell Distribution Width 18.0H, Platelet Count 194, Mean Platelet Volume 8.1, Neutrophils (%) (Auto) 82.6H, Lymphocytes (%) (Auto) 8.2L, Monocytes (%) (Auto) 7.4, Eosinophils (%) (Auto) 1.3, Basophils (%) (Auto) 0.5, Sodium Level 139, Potassium Level 5.6H, Chloride Level 102, Carbon Dioxide Level 29, Anion Gap 8, Blood Urea Nitrogen 93H, Creatinine 6.7H, Estimat Glomerular Filtration Rate 6.0, Glucose Level 105, Calcium Level 8.6 Current Medications Medications (Trade) Dose Ordered Sig/Yeimi Route PRN Reason Start Time Stop Time Status Last Admin Dose Admin Acetaminophen (Tylenol) 650 mg Q4H PRN ORAL Temp >100.5 10/27/20 14:15 11/26/20 14:14 11/05/20 17:22 Amlodipine Besylate (Norvasc) 5 mg DAILY ORAL 11/08/20 09:00 12/08/20 08:59 11/08/20 09:26 Citalopram Hydrobromide (CeleXA) 20 mg DAILY ORAL 10/29/20 09:00 11/28/20 08:59 11/09/20 10:01 Dextrose (Dextrose 50%) 25 ml Q30M PRN IV Hypoglycemia 10/28/20 20:45 01/26/21 20:44 Dextrose (Dextrose 50%) 50 ml Q30M PRN IV Hypoglycemia 10/28/20 20:45 01/26/21 20:44 Docusate Sodium (Colace) 100 mg TWICE A DAY ORAL 10/28/20 18:00 11/27/20 17:59 11/09/20 10:01 Haloperidol Lactate (Haldol) 5 mg Q6H PRN IM Agitation 10/28/20 15:45 12/12/20 15:44 Hydralazine HCl (Apresoline) 25 mg Q4H PRN ORAL For BP over 160 systolic 11/06/20 16:15 02/04/21 16:14 Hydralazine HCl (Apresoline) 25 mg Q6HR ORAL 11/07/20 18:00 02/05/21 17:59 11/09/20 06:39 Insulin Aspart (NovoLOG) BEFORE MEALS AND HS SUBQ 10/28/20 21:00 01/26/21 20:59 11/06/20 20:19 Insulin Detemir (Levemir) 10 units Q24H SUBQ 10/29/20 20:00 01/27/21 19:59 11/06/20 20:17 Megestrol Acetate (Megace) 400 mg DAILY ORAL 10/28/20 09:00 01/26/21 08:59 11/09/20 10:01 Pantoprazole (Protonix) 40 mg EVERY 12 HOURS ORAL 10/28/20 21:00 11/27/20 20:59 11/09/20 10:01 Sevelamer Carbonate (Renvela) 800 mg THREE TIMES A DAY ORAL 10/28/20 13:00 01/26/21 12:59 11/09/20 10:01 Zinc Sulfate (Zinc Sulfate) 220 mg DAILY ORAL 11/02/20 09:00 11/12/20 08:59 11/09/20 10:01 Assessment/Plan Assessment/Plan Assessment/Plan 1. COVID-19 pneumonia. - wean down oxygen as tolerated while keeping SaO2 >92%; currently saturating well on 2 lpm NC - CXR 10/27/2020 shows multifocal infiltrate. - s/p decadron - s/p ceftriaxone and azithromycin. - Repeat COVID-19 test 10/29/2020 positive - Continue isolation. 2. Renal failure, on dialysis. - per renal 3. Congestive heart failure. - BNP >35,000 - 2D echo EF 35-40% - management per cardio 4. Right eye conjunctivitis. - improving 5. DVT ppx - D-dimer 3.08, CRP 16.1 -> 4.0 - 10/29/2020 venous ultrasound unremarkable - On SCD 6. hyperkalemia - per renal We will follow carefully The care of this patient was discussed with my supervising physician Time spent for this encounter was approximately 31 minutes Zbigniew Serrano Nov 09, 2020 10:27
[2020-11-09 12:00] VITALS: BP 136/61
--- NOTE | 2020-11-09 13:09 | Nephrology Progress Note ---
Assessment/Plan Problem List: (1) End stage renal disease on dialysis (2) C. difficile colitis (3) Transient hypotension (4) Diastolic CHF, chronic Assessment 75-year-old female presents with respiratory distress and COVID-19 infection Patient has end-stage renal disease and last dialyzed 4 days ago Patient presents with high potassium History of C. difficile colitis History of diabetes mellitus History of hypertension, presents with transient hypotension History of cardiomyopathy and diastolic CHF Plan November 09: Due for dialysis today. Labs reviewed. Potassium 5.6 which will be corrected after dialysis. Will check repeat lab tomorrow. November 08: Dialyzed yesterday. Labs reviewed. Continue per consultants. Due for dialysis tomorrow. November 07: Due for dialysis today. Blood pressure medication adjusted. Will check lab tomorrow. November 06: Labs reviewed. Medication list reviewed. Will order dialysis for tomorrow. Continue per consultants. Hydralazine 25 mg as needed for high blood pressure ordered. November 05: Discussed with dialysis nurse. Patient was dialyzed late last night. However today's lab results suggestive of high BUN and creatinine. Serum potassium elevated but the repeat is normal. Will hold the Kayexalate. Will attempt another dialysis and order post BUN and creatinine. Reevaluation on November 05 at 3 PM: Stat BMP done as it appears this morning's lab was prior to dialysis even though it was marked 6 AM. The stat dialysis orders will be canceled based on new lab results. Will arrange for next dialysis on November 07 unless she needs it earlier. November 04: Patient due for dialysis today. Blood pressure stable. No UF is scheduled during dialysis. Check labs tomorrow. No can panel drawn today. November 03: Patient was dialyzed yesterday. Labs reviewed. Blood pressure more stable. Due for dialysis tomorrow. No ultrafiltration is ordered. November 02: Dialyzed today. Blood pressure 95 systolic. Parameters for BP medications. Patient asymptomatic. Albumin 25% 100 cc 1 bolus dose ordered. Continue rest. Discussed with RN. November 01: Dialyzed yesterday. Labs reviewed. Medication list reviewed. Blood pressure medication adjusted. Hemodialysis tomorrow. October 31: Due for dialysis today. No labs drawn today. Continue per consultants. Will check can panel tomorrow. Medication list reviewed. Blood pressure stable. October 30: Last dialyzed October 29. Due for dialysis October 31. Continue per consultants. October 29: Patient dialyzed last evening of October 27. Serum creatinine and electrolyte much improved Continue per current treatment plan Per orders Next dialysis today October 29 Check labs in a.m. Subjective ROS Limited/Unobtainable: No Constitutional: Reports: malaise, weakness Objective Objective Last 24 Hour Vital Signs Date Time Temp Pulse Resp B/P (MAP) Pulse Ox O2 Delivery O2 Flow Rate FiO2 11/09/20 12:00 143/69 11/09/20 12:00 98.1 79 18 136/61 (86) 99 11/09/20 09:00 77 143/69 11/09/20 09:00 Nasal Cannula 2.0 11/09/20 08:00 98.8 77 17 143/69 (93) 99 11/09/20 06:39 131/70 11/09/20 04:00 99.0 84 20 131/70 (90) 97 11/09/20 00:00 138/66 11/09/20 00:00 99.2 81 18 138/66 (90) 97 11/08/20 21:00 Nasal Cannula 2.0 11/08/20 20:00 98.8 82 18 136/60 (85) 98 11/08/20 18:59 148/66 11/08/20 16:00 98.6 82 18 148/66 (93) 97 11/08/20 14:34 132/73 11/08/20 14:25 99.3 77 16 132/73 (92) 100 Intake and Output 11/08/20 11/09/20 19:00 07:00 Intake Total 300 ml Balance 300 ml Intake Oral 300 ml # Bowel Movements 1 1 Laboratory Tests 11/08/20 14:31: POC Whole Blood Glucose 83 11/08/20 18:29: POC Whole Blood Glucose 72L 11/09/20 05:51: POC Whole Blood Glucose 108H 11/09/20 06:50: White Blood Count 9.8, Red Blood Count 3.15L, Hemoglobin 9.9L, Hematocrit 31.0L, Mean Corpuscular Volume 98, Mean Corpuscular Hemoglobin 31.5H, Mean Corpuscular Hemoglobin Concent 32.0, Red Cell Distribution Width 18.0H, Platelet Count 194, Mean Platelet Volume 8.1, Neutrophils (%) (Auto) 82.6H, Lymphocytes (%) (Auto) 8.2L, Monocytes (%) (Auto) 7.4, Eosinophils (%) (Auto) 1.3, Basophils (%) (Auto) 0.5, Sodium Level 139, Potassium Level 5.6H, Chloride Level 102, Carbon Dioxide Level 29, Anion Gap 8, Blood Urea Nitrogen 93H, Creatinine 6.7H, Estimat Glomerular Filtration Rate 6.0, Glucose Level 105, Calcium Level 8.6 11/09/20 10:23: POC Whole Blood Glucose [Pending] Height (Feet): 5 Height (Inches): 1.00 Weight (Pounds): 92 General Appearance: no apparent distress Cardiovascular: normal rate Respiratory/Chest: decreased breath sounds Abdomen: distended Objective No change Chris Puckett MD Nov 09, 2020 13:09
--- NOTE | 2020-11-09 14:24 | General Progress Note ---
Subjective Allergies: Coded Allergies: No Known Allergies (Unverified , 09/23/20) Subjective sob better awake eating better blood sugar are improving Objective Last 24 Hour Vital Signs Date Time Temp Pulse Resp B/P (MAP) Pulse Ox O2 Delivery O2 Flow Rate FiO2 11/09/20 12:00 143/69 11/09/20 12:00 98.1 79 18 136/61 (86) 99 11/09/20 09:00 77 143/69 11/09/20 09:00 Nasal Cannula 2.0 11/09/20 08:00 98.8 77 17 143/69 (93) 99 11/09/20 06:39 131/70 11/09/20 04:00 99.0 84 20 131/70 (90) 97 11/09/20 00:00 138/66 11/09/20 00:00 99.2 81 18 138/66 (90) 97 11/08/20 21:00 Nasal Cannula 2.0 11/08/20 20:00 98.8 82 18 136/60 (85) 98 11/08/20 18:59 148/66 11/08/20 16:00 98.6 82 18 148/66 (93) 97 11/08/20 14:34 132/73 11/08/20 14:25 99.3 77 16 132/73 (92) 100 Intake and Output 11/08/20 11/09/20 19:00 07:00 Intake Total 300 ml Balance 300 ml Intake Oral 300 ml # Bowel Movements 1 1 Laboratory Tests 11/08/20 14:31: POC Whole Blood Glucose 83 11/08/20 18:29: POC Whole Blood Glucose 72L 11/09/20 05:51: POC Whole Blood Glucose 108H 11/09/20 06:50: White Blood Count 9.8, Red Blood Count 3.15L, Hemoglobin 9.9L, Hematocrit 31.0L, Mean Corpuscular Volume 98, Mean Corpuscular Hemoglobin 31.5H, Mean Corpuscular Hemoglobin Concent 32.0, Red Cell Distribution Width 18.0H, Platelet Count 194, Mean Platelet Volume 8.1, Neutrophils (%) (Auto) 82.6H, Lymphocytes (%) (Auto) 8.2L, Monocytes (%) (Auto) 7.4, Eosinophils (%) (Auto) 1.3, Basophils (%) (Auto) 0.5, Sodium Level 139, Potassium Level 5.6H, Chloride Level 102, Carbon Dioxide Level 29, Anion Gap 8, Blood Urea Nitrogen 93H, Creatinine 6.7H, Estimat Glomerular Filtration Rate 6.0, Glucose Level 105, Calcium Level 8.6 11/09/20 10:23: POC Whole Blood Glucose [Pending] Height (Feet): 5 Height (Inches): 1.00 Weight (Pounds): 92 General Appearance: alert Neck: supple Cardiovascular: regular rhythm Respiratory/Chest: normal breath sounds Abdomen: soft, no organomegaly Assessment/Plan Status: stable Assessment/Plan: 1 sob 2 covid pna cont isolation 3 chf diastolic acute 4 esrd on hd 5 failure of thrive 6 dementia 7 dm poory controlled due to steroids 8 hypotension 9 hyperkalemia rpt ok add levamier and high dose short insulin pt/ot eval dw pt pt is very weak iv abx hd cardio and pulmonary consult cont current tx Cesar Swanson MD Nov 09, 2020 14:24
[2020-11-09 16:00] VITALS: BP 138/68
--- NOTE | 2020-11-09 18:33 | Surgery Progress Note ---
Surgery Progress Note Subjective Symptoms: improved, tolerating diet Objective Last 24 Hour Vital Signs Date Time Temp Pulse Resp B/P (MAP) Pulse Ox O2 Delivery O2 Flow Rate FiO2 11/09/20 16:00 97.7 69 18 138/68 (91) 100 11/09/20 12:00 143/69 11/09/20 12:00 98.1 79 18 136/61 (86) 99 11/09/20 09:00 77 143/69 11/09/20 09:00 Nasal Cannula 2.0 11/09/20 08:00 98.8 77 17 143/69 (93) 99 11/09/20 06:39 131/70 11/09/20 04:00 99.0 84 20 131/70 (90) 97 11/09/20 00:00 138/66 11/09/20 00:00 99.2 81 18 138/66 (90) 97 11/08/20 21:00 Nasal Cannula 2.0 11/08/20 20:00 98.8 82 18 136/60 (85) 98 11/08/20 18:59 148/66 I&O Intake and Output 11/08/20 11/09/20 19:00 07:00 Intake Total 300 ml Balance 300 ml Intake Oral 300 ml # Bowel Movements 1 1 Dressing: saturated Cardiovascular: RSR Respiratory: decreased breath sounds Abdomen: non-tender, present bowel sounds Extremities: no cyanosis Laboratory Tests Test 11/09/20 05:51 11/09/20 06:50 11/09/20 10:23 11/09/20 17:10 POC Whole Blood Glucose 108 MG/DL (74-106) H Pending Pending White Blood Count 9.8 K/UL (4.8-10.8) Red Blood Count 3.15 M/UL (4.20-5.40) L Hemoglobin 9.9 G/DL (12.0-16.0) L Hematocrit 31.0 % (37.0-47.0) L Mean Corpuscular Volume 98 FL (80-99) Mean Corpuscular Hemoglobin 31.5 PG (27.0-31.0) H Mean Corpuscular Hemoglobin Concent 32.0 G/DL (32.0-36.0) Red Cell Distribution Width 18.0 % (11.6-14.8) H Platelet Count 194 K/UL (150-450) Mean Platelet Volume 8.1 FL (6.5-10.1) Neutrophils (%) (Auto) 82.6 % (45.0-75.0) H Lymphocytes (%) (Auto) 8.2 % (20.0-45.0) L Monocytes (%) (Auto) 7.4 % (1.0-10.0) Eosinophils (%) (Auto) 1.3 % (0.0-3.0) Basophils (%) (Auto) 0.5 % (0.0-2.0) Sodium Level 139 MMOL/L (136-145) Potassium Level 5.6 MMOL/L (3.5-5.1) H Chloride Level 102 MMOL/L (98-107) Carbon Dioxide Level 29 MMOL/L (21-32) Anion Gap 8 mmol/L (5-15) Blood Urea Nitrogen 93 mg/dL (7-18) H Creatinine 6.7 MG/DL (0.55-1.30) H Estimat Glomerular Filtration Rate 6.0 mL/min (>60) Glucose Level 105 MG/DL (74-106) Calcium Level 8.6 MG/DL (8.5-10.1) Plan Problems: (1) Decubitus skin ulcer Assessment & Plan: Pt presented on admission with multiple Pressure Injuries. DTPI Sacrum(L)8cm x (W)8cm. Base of wound is purpuric with surrounding non- Blanchable erythema. Darker skin tone without erythema or induration periwound. Pt complained at site of DTPI when minimally palpated. Non-Blanchable erythema without induration R Ischium(L)7cm x (W)7.5cm. L Heel is boggy with non-Blanchable erythema. R heel is Boggy with non-blanchable erythema. Tx.Plan: Apply Moisture Barrier Paste to Sacrum. Cover with Optifoam drsg. Change every 3 days and prn.. Apply Moisture Barrier Paste to R and L Ischial tuberosities. Cover each Ischium with Optifoam drsgs. Change every 3 days and prn. Apply Cavilon Skin Barrier to R and L Heels and each Malleoli. Cover each site with Optifoam drsgs. Change every 7 days and prn. Cover Bony prominences as needed with Optifoam drsgs. Reposition at least every 2 hours or as tolerated. Off-load heels with Pillow. (2) Dyspnea (3) Respiratory distress (4) Pneumonia due to COVID-19 virus Assessment & Plan: ++ on tx id and pulm input appreciated limited movement will need to be cautions to ensure not worsening decub (5) Hypoglycemia (6) End stage renal disease on dialysis (7) Transient hypotension (8) Diastolic CHF, chronic (9) C. difficile colitis (10) Diarrhea Assessment & Plan: DAILY ESTIMATED NEEDS: Needs based on ESRD on HD 42kg 30-40 kcals/kg [id number] total kcals 1.25-1.8 g protein/kg 53-76 g total protein Fluid per MD, on HD NUTRITION DIAGNOSIS: Increased kcal and pro needs r/t renal dysfunction, wound healing as evidenced by pt w/ ESRD on HD, admitted w/ wounds, including sacral DTPI. CURRENT DIET:Renal diet PO DIET RECOMMENDATIONS: Maintain renal diet/ texture per HAND RIGGER ADDITIONAL RECOMMENDATIONS: 1) Daily wts, calibrated bed scale 2) Rec HAND RIGGER eval for appropriate texture 3) Add NEPRO TID w/ meals (425 kcal/ 19g pro per pack) 4) Monitor for hypoglycemia w/ variable PO 5) Wound healing: Nephrovite x 1, ZnSO4 220mg QD x 10 days Abdirahman BID as tolerated (11) ESRD (end stage renal disease) (12) Altered mental status (13) Pneumonia Kurt Flores Nov 09, 2020 18:33
--- NOTE | 2020-11-09 19:58 | NUR ---
NURSE HAND-OFF: Important Events on Shift:[HD - 1.6L ] Patient Status: [stable] Diet: [renal] Pending Orders: [cmp, mg, phos] Pending Results/Labs:[] Pending MD notification:[] Latest Vital Signs: Temperature 97.7 , Pulse 69 , B/P 138 /68 , Respiratory Rate 18 , O2 SAT 100 , Nasal Cannula, O2 Flow Rate 2.0 . Vital Sign Comment: [] Latest Ness Fall Score: 50 Fall Risk: High Risk Safety Measures: Call light Within Reach, Bed Alarm Zone 1, Side Rails Side Rails x2, Bed position Low and Locked. Fall Precautions: Yellow Socks Yellow Gown Door Sign Patient Fall Education Report given to [ZENAIDA Johnson].
--- NOTE | 2020-11-09 19:59 | NUR ---
NURSE NOTES: The patient remained alert and stable and doesn't seem to be in any active distress at this time.She is presently on 2 liters of oxygen via NC well tolerated.The patient is on hemodialysis and has a Left Sub-clavian PermCath.She has a Right hand 22g saline locked that is patent and asymptomatic.The bed in low level, call light within easy reach, siderails up x2. Will continue to monitor as indicated
[2020-11-09 20:00] VITALS: BP 145/70
[2020-11-09] MEDS: Levemir Flexpen SUBQ SCH (21:01)
[2020-11-10] VITALS: BP 142/68
[2020-11-10 04:00] VITALS: BP 107/58
[2020-11-10] MEDS: HydrALAZINE 25mg tab ORAL SCH ×4 (06:00→18:31)
[2020-11-10] MEDS: NovoLOG Insulin Flexpen SUBQ SCH ×4 (06:30→21:00)
--- NOTE | 2020-11-10 07:10 | NUR ---
NURSE HAND-OFF: Important Events on Shift:Alert and stable, dialysis done yesterday 1.6 liters out liters out Patient Status: Diet: Pending Orders: Pending Results/Labs: Pending MD notification: Latest Vital Signs: Temperature 98.1 , Pulse 77 , B/P 107 /60 , Respiratory Rate 19 , O2 SAT 97 , Nasal Cannula, O2 Flow Rate 2.0 . Vital Sign Comment: Latest Ness Fall Score: 50 Fall Risk: High Risk Safety Measures: Call light Within Reach, Bed Alarm Zone 1, Side Rails Side Rails x2, Bed position Low and Locked. Fall Precautions: Yellow Socks Yellow Gown Door Sign Patient Fall Education Report given to .NURSE NOTES:
[2020-11-10 08:00] VITALS: BP 151/76
[2020-11-10 08:02] LABS: BASOPHILS % (AUTO) 0.8 % (0.0-2.0); EOSINOPHILS % (AUTO) 1.2 % (0.0-3.0); HEMATOCRIT 31.5 % (37.0-47.0); HEMOGLOBIN 10.1 G/DL (12.0-16.0); LYMPHOCYTES % (AUTO) 15.2 % (20.0-45.0); MEAN CORPUSCULAR VOLUME 99 FL (80-99); MONOCYTES % (AUTO) 10.7 % (1.0-10.0); PLATELET COUNT 177 K/UL (150-450); RED BLOOD COUNT 3.17 M/UL (4.20-5.40); RED CELL DISTRIBUTION WIDTH 18.2 % (11.6-14.8); WHITE BLOOD COUNT 7.4 K/UL (4.8-10.8)
[2020-11-10 08:36] LABS: ALBUMIN 2.5 G/DL (3.4-5.0); ALBUMIN/GLOBULIN RATIO 0.6 (1.0-2.7); BILIRUBIN,TOTAL 0.4 MG/DL (0.2-1.0); CALCIUM 8.2 MG/DL (8.5-10.1); CREATININE 4.3 MG/DL (0.55-1.30); PHOSPHORUS 4.6 MG/DL (2.5-4.9)
[2020-11-10] MEDS: Zinc Sulfate 220mg ORAL SCH (09:00)
[2020-11-10] MEDS: Megace 400mg/10ml Susp ORAL SCH (09:00)
[2020-11-10] MEDS: Citalopram Hydrobromide 10mg Tab ORAL SCH (09:00)
[2020-11-10] MEDS: Docusate 100mg cap ORAL SCH ×2 (09:00→18:30)
--- NOTE | 2020-11-10 09:07 | Hematology/Onc Progress Note ---
Assessment/Plan Assessment/Plan # Anemia of chronic disease due to underlying chronic medical issues, multifactorial v Gi bleed --> Anemia workup has been ordered, rule out gi bleed --> No evidence of hemolysis is noted, peripheral smear has been reviewed. --> Hgb goal >7. Transfuse prn --> Epogen or iron at this time is not particularly indicated --> Medications have been reviewed --> low threshold for gi evaluation in case has occult + --> hgb 11-->9.6-->10.4 # Covid pna cont isolation -> completed steriods --> per pulm recs # chf diastolic acute -> cards aware # Esrd on hd --> per renal # failure of thrive # dementia # dm poory controlled due to steroids Appreciate consultation and dw PCP Subjective Constitutional: Denies: no symptoms, chills, fever, malaise, weakness, other HEENT: Denies: no symptoms, eye pain, blurred vision, tearing, double vision, ear pain, ear discharge, nose pain, nose congestion, throat pain, throat swelling, mouth pain, mouth swelling, other Cardiovascular: Denies: no symptoms, chest pain, edema, irregular heart rate, lightheadedness, palpitations, syncope, other Respiratory: Denies: no symptoms, cough, shortness of breath, SOB with excertion, SOB at rest, sputum, wheezing, other Gastrointestinal/Abdominal: Denies: no symptoms, abdomen distended, abdominal pain, black stools, tarry stools, blood in stool, constipated, diarrhea, difficulty swallowing, nausea, poor appetite, poor fluid intake, rectal bleeding, vomiting, other Genitourinary: Denies: no symptoms, burning, discharge, frequency, flank pain, hematuria, incontinence, pain, urgency, other Neurologic/Psychiatric: Denies: no symptoms, anxiety, depressed, emotional problems, headache, numbness, paresthesia, pre-existing deficit, seizure, tingling, tremors, weakness, other Endocrine: Denies: no symptoms, excessive sweating, flushing, intolerance to cold, intolerance to heat, increased hunger, increased thirst, increased urine, unexplained weight gain, unexplained weight loss, other Hematologic/Lymphatic: Denies: no symptoms, anemia, easy bleeding, easy bruising, adenopathy, other Allergies: Coded Allergies: No Known Allergies (Unverified , 09/23/20) Subjective 11/04 labs are noted, no bleeding, meds reviewed, on steriods, seen by pulm 11/05 hd done yesterday, no bleeding, cbc is pending 11/06 awake, alert, labs are pending, reviewed creative consultant recs 11/07 meds reviewed, labs noted, no bleeding 11/08 labs are noted, no bleeding, meds are reviewed 11/10 meds noted, no bleeding, no f/c, no bleeding Objective Objective Current Medications Medications (Trade) Dose Ordered Sig/Yeimi Route PRN Reason Start Time Stop Time Status Last Admin Dose Admin Acetaminophen (Tylenol) 650 mg Q4H PRN ORAL Temp >100.5 10/27/20 14:15 11/26/20 14:14 11/05/20 17:22 Amlodipine Besylate (Norvasc) 5 mg DAILY ORAL 11/08/20 09:00 12/08/20 08:59 11/08/20 09:26 Citalopram Hydrobromide (CeleXA) 20 mg DAILY ORAL 10/29/20 09:00 11/28/20 08:59 11/09/20 10:01 Dextrose (Dextrose 50%) 25 ml Q30M PRN IV Hypoglycemia 10/28/20 20:45 01/26/21 20:44 Dextrose (Dextrose 50%) 50 ml Q30M PRN IV Hypoglycemia 10/28/20 20:45 01/26/21 20:44 Docusate Sodium (Colace) 100 mg TWICE A DAY ORAL 10/28/20 18:00 11/27/20 17:59 11/09/20 18:38 Haloperidol Lactate (Haldol) 5 mg Q6H PRN IM Agitation 10/28/20 15:45 12/12/20 15:44 Hydralazine HCl (Apresoline) 25 mg Q4H PRN ORAL For BP over 160 systolic 11/06/20 16:15 02/04/21 16:14 Hydralazine HCl (Apresoline) 25 mg Q6HR ORAL 11/07/20 18:00 02/05/21 17:59 11/09/20 18:38 Insulin Aspart (NovoLOG) BEFORE MEALS AND HS SUBQ 10/28/20 21:00 01/26/21 20:59 11/06/20 20:19 Insulin Detemir (Levemir) 10 units Q24H SUBQ 10/29/20 20:00 01/27/21 19:59 11/09/20 21:01 Megestrol Acetate (Megace) 400 mg DAILY ORAL 10/28/20 09:00 01/26/21 08:59 11/09/20 10:01 Pantoprazole (Protonix) 40 mg EVERY 12 HOURS ORAL 10/28/20 21:00 11/27/20 20:59 11/09/20 21:04 Sevelamer Carbonate (Renvela) 800 mg THREE TIMES A DAY ORAL 10/28/20 13:00 01/26/21 12:59 11/09/20 18:38 Zinc Sulfate (Zinc Sulfate) 220 mg DAILY ORAL 11/02/20 09:00 11/12/20 08:59 11/09/20 10:01 Last 24 Hour Vital Signs Date Time Temp Pulse Resp B/P (MAP) Pulse Ox O2 Delivery O2 Flow Rate FiO2 11/10/20 08:00 98.1 72 19 151/76 (101) 99 11/10/20 06:00 107/60 11/10/20 04:00 98.1 77 19 107/58 (74) 97 11/10/20 00:00 97.9 74 21 142/68 (92) 98 11/10/20 00:00 138/68 11/09/20 21:00 Nasal Cannula 2.0 11/09/20 20:00 98.2 74 20 145/70 (95) 98 11/09/20 18:38 138/68 11/09/20 16:00 97.7 69 18 138/68 (91) 100 11/09/20 12:00 143/69 11/09/20 12:00 98.1 79 18 136/61 (86) 99 11/09/20 09:00 77 143/69 11/09/20 09:00 Nasal Cannula 2.0 11/09/20 08:00 98.8 77 17 143/69 (93) 99 11/09/20 06:39 131/70 11/09/20 04:00 99.0 84 20 131/70 (90) 97 11/09/20 00:00 138/66 11/09/20 00:00 99.2 81 18 138/66 (90) 97 11/08/20 21:00 Nasal Cannula 2.0 11/08/20 20:00 98.8 82 18 136/60 (85) 98 11/08/20 18:59 148/66 11/08/20 16:00 98.6 82 18 148/66 (93) 97 11/08/20 14:34 132/73 11/08/20 14:25 99.3 77 16 132/73 (92) 100 11/08/20 09:26 77 150/77 Intake and Output 11/09/20 11/10/20 19:00 07:00 Intake Total 400 ml 210 ml Balance 400 ml 210 ml Intake Oral 210 ml Other 400 ml # Bowel Movements 1 Labs Test 11/07/20 11:29 11/07/20 17:54 11/07/20 23:06 11/08/20 04:50 POC Whole Blood Glucose 101 MG/DL (74-106) 94 MG/DL (74-106) 91 MG/DL (74-106) White Blood Count 8.7 K/UL (4.8-10.8) Red Blood Count 3.30 M/UL (4.20-5.40) Hemoglobin 10.4 G/DL (12.0-16.0) Hematocrit 32.5 % (37.0-47.0) Mean Corpuscular Volume 98 FL (80-99) Mean Corpuscular Hemoglobin 31.5 PG (27.0-31.0) Mean Corpuscular Hemoglobin Concent 32.1 G/DL (32.0-36.0) Red Cell Distribution Width 18.2 % (11.6-14.8) Platelet Count 194 K/UL (150-450) Mean Platelet Volume 8.6 FL (6.5-10.1) Neutrophils (%) (Auto) 77.3 % (45.0-75.0) Lymphocytes (%) (Auto) 11.5 % (20.0-45.0) Monocytes (%) (Auto) 8.9 % (1.0-10.0) Eosinophils (%) (Auto) 1.9 % (0.0-3.0) Basophils (%) (Auto) 0.5 % (0.0-2.0) Sodium Level 140 MMOL/L (136-145) Potassium Level 4.8 MMOL/L (3.5-5.1) Chloride Level 102 MMOL/L (98-107) Carbon Dioxide Level 31 MMOL/L (21-32) Anion Gap 7 mmol/L (5-15) Blood Urea Nitrogen 69 mg/dL (7-18) Creatinine 5.2 MG/DL (0.55-1.30) Estimat Glomerular Filtration Rate 8.0 mL/min (>60) Glucose Level 98 MG/DL (74-106) Calcium Level 9.0 MG/DL (8.5-10.1) Phosphorus Level 5.0 MG/DL (2.5-4.9) Total Bilirubin 0.4 MG/DL (0.2-1.0) Aspartate Amino Transf (AST/SGOT) 14 U/L (15-37) Alanine Aminotransferase (ALT/SGPT) 15 U/L (12-78) Alkaline Phosphatase 108 U/L (46-116) Total Protein 7.4 G/DL (6.4-8.2) Albumin 2.6 G/DL (3.4-5.0) Globulin 4.8 g/dL Albumin/Globulin Ratio 0.5 (1.0-2.7) Test 11/08/20 06:51 11/08/20 14:31 11/08/20 18:29 11/09/20 05:51 POC Whole Blood Glucose 94 MG/DL (74-106) 83 MG/DL (74-106) 72 MG/DL (74-106) 108 MG/DL (74-106) Test 11/09/20 06:50 11/09/20 10:23 11/09/20 17:10 11/09/20 20:59 White Blood Count 9.8 K/UL (4.8-10.8) Red Blood Count 3.15 M/UL (4.20-5.40) Hemoglobin 9.9 G/DL (12.0-16.0) Hematocrit 31.0 % (37.0-47.0) Mean Corpuscular Volume 98 FL (80-99) Mean Corpuscular Hemoglobin 31.5 PG (27.0-31.0) Mean Corpuscular Hemoglobin Concent 32.0 G/DL (32.0-36.0) Red Cell Distribution Width 18.0 % (11.6-14.8) Platelet Count 194 K/UL (150-450) Mean Platelet Volume 8.1 FL (6.5-10.1) Neutrophils (%) (Auto) 82.6 % (45.0-75.0) Lymphocytes (%) (Auto) 8.2 % (20.0-45.0) Monocytes (%) (Auto) 7.4 % (1.0-10.0) Eosinophils (%) (Auto) 1.3 % (0.0-3.0) Basophils (%) (Auto) 0.5 % (0.0-2.0) Sodium Level 139 MMOL/L (136-145) Potassium Level 5.6 MMOL/L (3.5-5.1) Chloride Level 102 MMOL/L (98-107) Carbon Dioxide Level 29 MMOL/L (21-32) Anion Gap 8 mmol/L (5-15) Blood Urea Nitrogen 93 mg/dL (7-18) Creatinine 6.7 MG/DL (0.55-1.30) Estimat Glomerular Filtration Rate 6.0 mL/min (>60) Glucose Level 105 MG/DL (74-106) Calcium Level 8.6 MG/DL (8.5-10.1) POC Whole Blood Glucose 129 MG/DL (74-106) Test 11/10/20 05:21 11/10/20 07:20 POC Whole Blood Glucose 82 MG/DL (74-106) White Blood Count 7.4 K/UL (4.8-10.8) Red Blood Count 3.17 M/UL (4.20-5.40) Hemoglobin 10.1 G/DL (12.0-16.0) Hematocrit 31.5 % (37.0-47.0) Mean Corpuscular Volume 99 FL (80-99) Mean Corpuscular Hemoglobin 31.8 PG (27.0-31.0) Mean Corpuscular Hemoglobin Concent 32.0 G/DL (32.0-36.0) Red Cell Distribution Width 18.2 % (11.6-14.8) Platelet Count 177 K/UL (150-450) Mean Platelet Volume 8.9 FL (6.5-10.1) Neutrophils (%) (Auto) 72.0 % (45.0-75.0) Lymphocytes (%) (Auto) 15.2 % (20.0-45.0) Monocytes (%) (Auto) 10.7 % (1.0-10.0) Eosinophils (%) (Auto) 1.2 % (0.0-3.0) Basophils (%) (Auto) 0.8 % (0.0-2.0) Sodium Level 139 MMOL/L (136-145) Potassium Level 4.0 MMOL/L (3.5-5.1) Chloride Level 100 MMOL/L (98-107) Carbon Dioxide Level 33 MMOL/L (21-32) Anion Gap 6 mmol/L (5-15) Blood Urea Nitrogen 49 mg/dL (7-18) Creatinine 4.3 MG/DL (0.55-1.30) Estimat Glomerular Filtration Rate 10.0 mL/min (>60) Glucose Level 83 MG/DL (74-106) Calcium Level 8.2 MG/DL (8.5-10.1) Phosphorus Level 4.6 MG/DL (2.5-4.9) Magnesium Level 1.9 MG/DL (1.8-2.4) Total Bilirubin 0.4 MG/DL (0.2-1.0) Aspartate Amino Transf (AST/SGOT) 16 U/L (15-37) Alanine Aminotransferase (ALT/SGPT) 12 U/L (12-78) Alkaline Phosphatase 80 U/L (46-116) Total Protein 7.0 G/DL (6.4-8.2) Albumin 2.5 G/DL (3.4-5.0) Globulin 4.5 g/dL Albumin/Globulin Ratio 0.6 (1.0-2.7) Height (Feet): 5 Height (Inches): 1.00 Weight (Pounds): 92 Objective Gen: nad Pulm: ctab CV: rrr Abd: soft, nt, nd ext: no carliee Timothy Lam MD Nov 10, 2020 09:07
[2020-11-10 12:00] VITALS: BP 146/65
--- NOTE | 2020-11-10 12:19 | Surgery Progress Note ---
Surgery Progress Note Subjective Additional Comments tyler cute events Objective Last 24 Hour Vital Signs Date Time Temp Pulse Resp B/P (MAP) Pulse Ox O2 Delivery O2 Flow Rate FiO2 11/10/20 09:00 72 151/76 11/10/20 08:00 98.1 72 19 151/76 (101) 99 11/10/20 06:00 107/60 11/10/20 04:00 98.1 77 19 107/58 (74) 97 11/10/20 00:00 97.9 74 21 142/68 (92) 98 11/10/20 00:00 138/68 11/09/20 21:00 Nasal Cannula 2.0 11/09/20 20:00 98.2 74 20 145/70 (95) 98 11/09/20 18:38 138/68 11/09/20 16:00 97.7 69 18 138/68 (91) 100 I&O Intake and Output 11/09/20 11/10/20 19:00 07:00 Intake Total 400 ml 210 ml Balance 400 ml 210 ml Intake Oral 210 ml Other 400 ml # Bowel Movements 1 Dressing: saturated Cardiovascular: RSR Respiratory: decreased breath sounds Abdomen: non-tender, present bowel sounds Extremities: no tenderness, no cyanosis Laboratory Tests Test 11/09/20 17:10 11/09/20 20:59 11/10/20 05:21 11/10/20 07:20 POC Whole Blood Glucose Pending 129 MG/DL (74-106) H 82 MG/DL (74-106) White Blood Count 7.4 K/UL (4.8-10.8) Red Blood Count 3.17 M/UL (4.20-5.40) L Hemoglobin 10.1 G/DL (12.0-16.0) L Hematocrit 31.5 % (37.0-47.0) L Mean Corpuscular Volume 99 FL (80-99) Mean Corpuscular Hemoglobin 31.8 PG (27.0-31.0) H Mean Corpuscular Hemoglobin Concent 32.0 G/DL (32.0-36.0) Red Cell Distribution Width 18.2 % (11.6-14.8) H Platelet Count 177 K/UL (150-450) Mean Platelet Volume 8.9 FL (6.5-10.1) Neutrophils (%) (Auto) 72.0 % (45.0-75.0) Lymphocytes (%) (Auto) 15.2 % (20.0-45.0) L Monocytes (%) (Auto) 10.7 % (1.0-10.0) H Eosinophils (%) (Auto) 1.2 % (0.0-3.0) Basophils (%) (Auto) 0.8 % (0.0-2.0) Sodium Level 139 MMOL/L (136-145) Potassium Level 4.0 MMOL/L (3.5-5.1) Chloride Level 100 MMOL/L (98-107) Carbon Dioxide Level 33 MMOL/L (21-32) H Anion Gap 6 mmol/L (5-15) Blood Urea Nitrogen 49 mg/dL (7-18) H Creatinine 4.3 MG/DL (0.55-1.30) H Estimat Glomerular Filtration Rate 10.0 mL/min (>60) Glucose Level 83 MG/DL (74-106) Calcium Level 8.2 MG/DL (8.5-10.1) L Phosphorus Level 4.6 MG/DL (2.5-4.9) Magnesium Level 1.9 MG/DL (1.8-2.4) Total Bilirubin 0.4 MG/DL (0.2-1.0) Aspartate Amino Transf (AST/SGOT) 16 U/L (15-37) Alanine Aminotransferase (ALT/SGPT) 12 U/L (12-78) Alkaline Phosphatase 80 U/L (46-116) Total Protein 7.0 G/DL (6.4-8.2) Albumin 2.5 G/DL (3.4-5.0) L Globulin 4.5 g/dL Albumin/Globulin Ratio 0.6 (1.0-2.7) L Test 11/10/20 11:45 POC Whole Blood Glucose Pending Plan Problems: (1) Decubitus skin ulcer Assessment & Plan: Pt presented on admission with multiple Pressure Injuries. DTPI Sacrum(L)8cm x (W)8cm. Base of wound is purpuric with surrounding non- Blanchable erythema. Darker skin tone without erythema or induration periwound. Pt complained at site of DTPI when minimally palpated. Non-Blanchable erythema without induration R Ischium(L)7cm x (W)7.5cm. L Heel is boggy with non-Blanchable erythema. R heel is Boggy with non-blanchable erythema. Tx.Plan: Apply Moisture Barrier Paste to Sacrum. Cover with Optifoam drsg. Change every 3 days and prn.. Apply Moisture Barrier Paste to R and L Ischial tuberosities. Cover each Ischium with Optifoam drsgs. Change every 3 days and prn. Apply Cavilon Skin Barrier to R and L Heels and each Malleoli. Cover each site with Optifoam drsgs. Change every 7 days and prn. Cover Bony prominences as needed with Optifoam drsgs. Reposition at least every 2 hours or as tolerated. Off-load heels with Pillow. (2) Dyspnea (3) Respiratory distress (4) Pneumonia due to COVID-19 virus Assessment & Plan: ++ on tx id and pulm input appreciated limited movement will need to be cautions to ensure not worsening decub (5) Hypoglycemia (6) End stage renal disease on dialysis (7) Transient hypotension (8) Diastolic CHF, chronic (9) C. difficile colitis (10) Diarrhea Assessment & Plan: DAILY ESTIMATED NEEDS: Needs based on ESRD on HD 42kg 30-40 kcals/kg [id number] total kcals 1.25-1.8 g protein/kg 53-76 g total protein Fluid per MD, on HD NUTRITION DIAGNOSIS: Increased kcal and pro needs r/t renal dysfunction, wound healing as evidenced by pt w/ ESRD on HD, admitted w/ wounds, including sacral DTPI. CURRENT DIET:Renal diet PO DIET RECOMMENDATIONS: Maintain renal diet/ texture per DAIRY MANAGEMENT SPECIALIST ADDITIONAL RECOMMENDATIONS: 1) Daily wts, calibrated bed scale 2) Rec DAIRY MANAGEMENT SPECIALIST eval for appropriate texture 3) Add NEPRO TID w/ meals (425 kcal/ 19g pro per pack) 4) Monitor for hypoglycemia w/ variable PO 5) Wound healing: Nephrovite x 1, ZnSO4 220mg QD x 10 days Abdirahman BID as tolerated (11) ESRD (end stage renal disease) (12) Altered mental status (13) Pneumonia Kurt Flores Nov 10, 2020 12:19
--- NOTE | 2020-11-10 14:22 | Pulmonology Progress Note ---
Subjective ROS Limited/Unobtainable: No Interval Events: none major reported per nursing Constitutional: Denies: fever, chills HEENT: Repors: no symptoms Respiratory: Reports: no symptoms Cardiovascular: Reports: no symptoms Gastrointestinal/Abdominal: Denies: nausea, vomiting, diarrhea Musculoskeletal: Denies: pain Allergies: Coded Allergies: No Known Allergies (Unverified , 09/23/20) Objective Last 24 Hour Vital Signs Date Time Temp Pulse Resp B/P (MAP) Pulse Ox O2 Delivery O2 Flow Rate FiO2 11/10/20 12:41 146/65 11/10/20 12:00 98.4 71 18 146/65 (92) 99 11/10/20 09:00 72 151/76 11/10/20 08:00 98.1 72 19 151/76 (101) 99 11/10/20 06:00 107/60 11/10/20 04:00 98.1 77 19 107/58 (74) 97 11/10/20 00:00 97.9 74 21 142/68 (92) 98 11/10/20 00:00 138/68 11/09/20 21:00 Nasal Cannula 2.0 11/09/20 20:00 98.2 74 20 145/70 (95) 98 11/09/20 18:38 138/68 11/09/20 16:00 97.7 69 18 138/68 (91) 100 Intake and Output 11/09/20 11/10/20 19:00 07:00 Intake Total 400 ml 210 ml Balance 400 ml 210 ml Intake Oral 210 ml Other 400 ml # Bowel Movements 1 Objective 11/10 s/p dialysis; 1.6L removed; saturating well on 2 lpm NC 11/09 due for dialysis today; continues to saturate well on 2 lpm NC 11/08 s/p dialysis; saturating well on 2 lpm NC 11/07/2020 s/p dialysis 11/06/2020 pt being seen by PT; saturating well on 2 lpm NC; due for dialysis today 11/05/2020 pt asleep; s/p dialysis; saturating well on 2 lpm NC 11/04/2020 pt asleep; saturating well on 2 lpm NC; NAD 11/03/2020 saturating well on 2 lpm NC; eating in bed; NAD 11/02/2020 saturating well on 1 lpm NC; s/p dialysis 11/01/2020 saturating well on 1 lpm NC 10/31/2020 patient alert; saturating well on 1 lpm NC 10/30/2020 pt asleep; saturating well on low flow oxygen 10/29/2020 pt asleep in bed; saturating well on low flow oxygen General Appearance: cachetic HEENT: normocephalic, atraumatic Respiratory: chest wall non-tender, rhonchi - bilaterally, other - dialysis catheter Cardiovascular: normal rate, regular rhythm Abdomen: soft, non tender Laboratory Tests 11/09/20 17:10: POC Whole Blood Glucose [Pending] 11/09/20 20:59: POC Whole Blood Glucose 129H 11/10/20 05:21: POC Whole Blood Glucose 82 11/10/20 07:20: White Blood Count 7.4, Red Blood Count 3.17L, Hemoglobin 10.1L, Hematocrit 31.5L , Mean Corpuscular Volume 99, Mean Corpuscular Hemoglobin 31.8H, Mean Corpuscular Hemoglobin Concent 32.0, Red Cell Distribution Width 18.2H, Platelet Count 177, Mean Platelet Volume 8.9, Neutrophils (%) (Auto) 72.0, Lymphocytes (%) (Auto) 15.2L, Monocytes (%) (Auto) 10.7H, Eosinophils (%) (Auto) 1.2, Basophils (%) (Auto) 0.8, Sodium Level 139, Potassium Level 4.0, Chloride Level 100, Carbon Dioxide Level 33H, Anion Gap 6, Blood Urea Nitrogen 49H, Creatinine 4.3H, Estimat Glomerular Filtration Rate 10.0, Glucose Level 83, Calcium Level 8.2L, Phosphorus Level 4.6, Magnesium Level 1.9, Total Bilirubin 0.4, Aspartate Amino Transf (AST/SGOT) 16, Alanine Aminotransferase (ALT/SGPT) 12, Alkaline Phosphatase 80, Total Protein 7.0, Albumin 2.5L, Globulin 4.5, Albumin/Globulin Ratio 0.6L 11/10/20 11:45: POC Whole Blood Glucose [Pending] Current Medications Medications (Trade) Dose Ordered Sig/Yeimi Route PRN Reason Start Time Stop Time Status Last Admin Dose Admin Acetaminophen (Tylenol) 650 mg Q4H PRN ORAL Temp >100.5 10/27/20 14:15 11/26/20 14:14 11/05/20 17:22 Amlodipine Besylate (Norvasc) 5 mg DAILY ORAL 11/08/20 09:00 12/08/20 08:59 11/10/20 09:00 Citalopram Hydrobromide (CeleXA) 20 mg DAILY ORAL 10/29/20 09:00 11/28/20 08:59 11/10/20 09:00 Dextrose (Dextrose 50%) 25 ml Q30M PRN IV Hypoglycemia 10/28/20 20:45 01/26/21 20:44 Dextrose (Dextrose 50%) 50 ml Q30M PRN IV Hypoglycemia 10/28/20 20:45 01/26/21 20:44 Docusate Sodium (Colace) 100 mg TWICE A DAY ORAL 10/28/20 18:00 11/27/20 17:59 11/10/20 09:00 Haloperidol Lactate (Haldol) 5 mg Q6H PRN IM Agitation 10/28/20 15:45 12/12/20 15:44 Hydralazine HCl (Apresoline) 25 mg Q4H PRN ORAL For BP over 160 systolic 11/06/20 16:15 02/04/21 16:14 Hydralazine HCl (Apresoline) 25 mg Q6HR ORAL 11/07/20 18:00 02/05/21 17:59 11/10/20 12:41 Insulin Aspart (NovoLOG) BEFORE MEALS AND HS SUBQ 10/28/20 21:00 01/26/21 20:59 11/06/20 20:19 Insulin Detemir (Levemir) 10 units Q24H SUBQ 10/29/20 20:00 01/27/21 19:59 11/09/20 21:01 Megestrol Acetate (Megace) 400 mg DAILY ORAL 10/28/20 09:00 01/26/21 08:59 11/10/20 09:00 Pantoprazole (Protonix) 40 mg EVERY 12 HOURS ORAL 10/28/20 21:00 11/27/20 20:59 11/10/20 09:00 Sevelamer Carbonate (Renvela) 800 mg THREE TIMES A DAY ORAL 10/28/20 13:00 01/26/21 12:59 11/10/20 09:00 Zinc Sulfate (Zinc Sulfate) 220 mg DAILY ORAL 11/02/20 09:00 11/12/20 08:59 11/10/20 09:00 Assessment/Plan Assessment/Plan 1. COVID-19 pneumonia. - wean down oxygen as tolerated while keeping SaO2 >92%; currently saturating well on 2 lpm NC - CXR 10/27/2020 shows multifocal infiltrate. - s/p decadron - s/p ceftriaxone and azithromycin. - Repeat COVID-19 test 10/29/2020 positive - Continue isolation. 2. Renal failure, on dialysis. - per renal 3. Congestive heart failure. - BNP >35,000 - 2D echo EF 35-40% - management per cardio 4. Right eye conjunctivitis. - improved 5. DVT ppx - D-dimer 3.08, CRP 16.1 -> 4.0 - 10/29/2020 venous ultrasound unremarkable - On SCD 6. hyperkalemia - per renal We will follow carefully The care of this patient was discussed with my supervising physician Time spent for this encounter was approximately 31 minutes Zbigniew Serrano Nov 10, 2020 14:22
--- NOTE | 2020-11-10 15:19 | Nephrology Progress Note ---
Assessment/Plan Problem List: (1) End stage renal disease on dialysis (2) C. difficile colitis (3) Transient hypotension (4) Diastolic CHF, chronic Assessment 75-year-old female presents with respiratory distress and COVID-19 infection Patient has end-stage renal disease and last dialyzed 4 days ago Patient presents with high potassium History of C. difficile colitis History of diabetes mellitus History of hypertension, presents with transient hypotension History of cardiomyopathy and diastolic CHF Plan November 10: Patient was dialyzed yesterday. Potassium now within normal limit. Blood pressure stable. Continue same. November 09: Due for dialysis today. Labs reviewed. Potassium 5.6 which will be corrected after dialysis. Will check repeat lab tomorrow. November 08: Dialyzed yesterday. Labs reviewed. Continue per consultants. Due for dialysis tomorrow. November 07: Due for dialysis today. Blood pressure medication adjusted. Will check lab tomorrow. November 06: Labs reviewed. Medication list reviewed. Will order dialysis for tomorrow. Continue per consultants. Hydralazine 25 mg as needed for high blood pressure ordered. November 05: Discussed with dialysis nurse. Patient was dialyzed late last night. However today's lab results suggestive of high BUN and creatinine. Serum potassium elevated but the repeat is normal. Will hold the Kayexalate. Will attempt another dialysis and order post BUN and creatinine. Reevaluation on November 05 at 3 PM: Stat BMP done as it appears this morning's lab was prior to dialysis even though it was marked 6 AM. The stat dialysis orders will be canceled based on new lab results. Will arrange for next dialysis on November 07 unless she needs it earlier. November 04: Patient due for dialysis today. Blood pressure stable. No UF is scheduled during dialysis. Check labs tomorrow. No can panel drawn today. November 03: Patient was dialyzed yesterday. Labs reviewed. Blood pressure more stable. Due for dialysis tomorrow. No ultrafiltration is ordered. November 02: Dialyzed today. Blood pressure 95 systolic. Parameters for BP medications. Patient asymptomatic. Albumin 25% 100 cc 1 bolus dose ordered. Continue rest. Discussed with RN. November 01: Dialyzed yesterday. Labs reviewed. Medication list reviewed. Blood pressure medication adjusted. Hemodialysis tomorrow. October 31: Due for dialysis today. No labs drawn today. Continue per consultants. Will check can panel tomorrow. Medication list reviewed. Blood pressure stable. October 30: Last dialyzed October 29. Due for dialysis October 31. Continue per consultants. October 29: Patient dialyzed last evening of October 27. Serum creatinine and electrolyte much improved Continue per current treatment plan Per orders Next dialysis today October 29 Check labs in a.m. Subjective ROS Limited/Unobtainable: No Constitutional: Reports: malaise Objective Objective Last 24 Hour Vital Signs Date Time Temp Pulse Resp B/P (MAP) Pulse Ox O2 Delivery O2 Flow Rate FiO2 11/10/20 12:41 146/65 11/10/20 12:00 98.4 71 18 146/65 (92) 99 11/10/20 09:00 72 151/76 11/10/20 08:00 98.1 72 19 151/76 (101) 99 11/10/20 06:00 107/60 11/10/20 04:00 98.1 77 19 107/58 (74) 97 11/10/20 00:00 97.9 74 21 142/68 (92) 98 11/10/20 00:00 138/68 11/09/20 21:00 Nasal Cannula 2.0 11/09/20 20:00 98.2 74 20 145/70 (95) 98 11/09/20 18:38 138/68 11/09/20 16:00 97.7 69 18 138/68 (91) 100 Intake and Output 11/09/20 11/10/20 19:00 07:00 Intake Total 400 ml 210 ml Balance 400 ml 210 ml Intake Oral 210 ml Other 400 ml # Bowel Movements 1 Current Medications Medications (Trade) Dose Ordered Sig/Yeimi Route PRN Reason Start Time Stop Time Status Last Admin Dose Admin Acetaminophen (Tylenol) 650 mg Q4H PRN ORAL Temp >100.5 10/27/20 14:15 11/26/20 14:14 11/05/20 17:22 Amlodipine Besylate (Norvasc) 5 mg DAILY ORAL 11/08/20 09:00 12/08/20 08:59 11/10/20 09:00 Citalopram Hydrobromide (CeleXA) 20 mg DAILY ORAL 10/29/20 09:00 11/28/20 08:59 11/10/20 09:00 Dextrose (Dextrose 50%) 25 ml Q30M PRN IV Hypoglycemia 10/28/20 20:45 01/26/21 20:44 Dextrose (Dextrose 50%) 50 ml Q30M PRN IV Hypoglycemia 10/28/20 20:45 01/26/21 20:44 Docusate Sodium (Colace) 100 mg TWICE A DAY ORAL 10/28/20 18:00 11/27/20 17:59 11/10/20 09:00 Haloperidol Lactate (Haldol) 5 mg Q6H PRN IM Agitation 10/28/20 15:45 12/12/20 15:44 Hydralazine HCl (Apresoline) 25 mg Q4H PRN ORAL For BP over 160 systolic 11/06/20 16:15 02/04/21 16:14 Hydralazine HCl (Apresoline) 25 mg Q6HR ORAL 11/07/20 18:00 02/05/21 17:59 11/10/20 12:41 Insulin Aspart (NovoLOG) BEFORE MEALS AND HS SUBQ 10/28/20 21:00 01/26/21 20:59 11/06/20 20:19 Insulin Detemir (Levemir) 10 units Q24H SUBQ 10/29/20 20:00 01/27/21 19:59 11/09/20 21:01 Megestrol Acetate (Megace) 400 mg DAILY ORAL 10/28/20 09:00 01/26/21 08:59 11/10/20 09:00 Pantoprazole (Protonix) 40 mg EVERY 12 HOURS ORAL 10/28/20 21:00 11/27/20 20:59 11/10/20 09:00 Sevelamer Carbonate (Renvela) 800 mg THREE TIMES A DAY ORAL 10/28/20 13:00 01/26/21 12:59 11/10/20 14:50 Zinc Sulfate (Zinc Sulfate) 220 mg DAILY ORAL 11/02/20 09:00 11/12/20 08:59 11/10/20 09:00 Laboratory Tests 11/09/20 17:10: POC Whole Blood Glucose [Pending] 11/09/20 20:59: POC Whole Blood Glucose 129H 11/10/20 05:21: POC Whole Blood Glucose 82 11/10/20 07:20: White Blood Count 7.4, Red Blood Count 3.17L, Hemoglobin 10.1L, Hematocrit 31.5L , Mean Corpuscular Volume 99, Mean Corpuscular Hemoglobin 31.8H, Mean Corpuscular Hemoglobin Concent 32.0, Red Cell Distribution Width 18.2H, Platelet Count 177, Mean Platelet Volume 8.9, Neutrophils (%) (Auto) 72.0, Lymphocytes (%) (Auto) 15.2L, Monocytes (%) (Auto) 10.7H, Eosinophils (%) (Auto) 1.2, Basophils (%) (Auto) 0.8, Sodium Level 139, Potassium Level 4.0, Chloride Level 100, Carbon Dioxide Level 33H, Anion Gap 6, Blood Urea Nitrogen 49H, Creatinine 4.3H, Estimat Glomerular Filtration Rate 10.0, Glucose Level 83, Calcium Level 8.2L, Phosphorus Level 4.6, Magnesium Level 1.9, Total Bilirubin 0.4, Aspartate Amino Transf (AST/SGOT) 16, Alanine Aminotransferase (ALT/SGPT) 12, Alkaline Phosphatase 80, Total Protein 7.0, Albumin 2.5L, Globulin 4.5, Albumin/Globulin Ratio 0.6L 11/10/20 11:45: POC Whole Blood Glucose [Pending] Height (Feet): 5 Height (Inches): 1.00 Weight (Pounds): 92 General Appearance: no apparent distress, lethargic Cardiovascular: normal rate Respiratory/Chest: decreased breath sounds Abdomen: soft Objective No change Chris Puckett MD Nov 10, 2020 15:19
[2020-11-10 16:00] VITALS: BP 137/70
--- NOTE | 2020-11-10 16:00 | Infectious Diseases Prog Note ---
Assessment/Plan Assessment/Plan A 1. COVID-19 pneumonia s/p ivermectin 2. Renal failure, on dialysis. 3. Congestive heart failure. 4. Right eye conjunctivitis 5. hypertension 6. Hypoxemia P 1. Finished Decadron course 2. continue isolation Subjective ROS Limited/Unobtainable: Yes Constitutional: Denies: fever Allergies: Coded Allergies: No Known Allergies (Unverified , 09/23/20) Objective Last 24 Hour Vital Signs Date Time Temp Pulse Resp B/P (MAP) Pulse Ox O2 Delivery O2 Flow Rate FiO2 11/10/20 12:41 146/65 11/10/20 12:00 98.4 71 18 146/65 (92) 99 11/10/20 09:00 72 151/76 11/10/20 09:00 Nasal Cannula 2.0 11/10/20 08:00 98.1 72 19 151/76 (101) 99 11/10/20 06:00 107/60 11/10/20 04:00 98.1 77 19 107/58 (74) 97 11/10/20 00:00 97.9 74 21 142/68 (92) 98 11/10/20 00:00 138/68 11/09/20 21:00 Nasal Cannula 2.0 11/09/20 20:00 98.2 74 20 145/70 (95) 98 11/09/20 18:38 138/68 11/09/20 16:00 97.7 69 18 138/68 (91) 100 Height (Feet): 5 Height (Inches): 1.00 Weight (Pounds): 92 General Appearance: no acute distress, cachetic HEENT: mucous membranes moist Respiratory/Chest: other - oxygen by nasal cannula Cardiovascular: normal rate Abdomen: soft, non tender Extremities: no edema Neurologic/Psychiatric: other - sleeping Laboratory Tests Test 11/09/20 17:10 11/09/20 20:59 11/10/20 05:21 11/10/20 07:20 POC Whole Blood Glucose Pending 129 MG/DL (74-106) H 82 MG/DL (74-106) White Blood Count 7.4 K/UL (4.8-10.8) Red Blood Count 3.17 M/UL (4.20-5.40) L Hemoglobin 10.1 G/DL (12.0-16.0) L Hematocrit 31.5 % (37.0-47.0) L Mean Corpuscular Volume 99 FL (80-99) Mean Corpuscular Hemoglobin 31.8 PG (27.0-31.0) H Mean Corpuscular Hemoglobin Concent 32.0 G/DL (32.0-36.0) Red Cell Distribution Width 18.2 % (11.6-14.8) H Platelet Count 177 K/UL (150-450) Mean Platelet Volume 8.9 FL (6.5-10.1) Neutrophils (%) (Auto) 72.0 % (45.0-75.0) Lymphocytes (%) (Auto) 15.2 % (20.0-45.0) L Monocytes (%) (Auto) 10.7 % (1.0-10.0) H Eosinophils (%) (Auto) 1.2 % (0.0-3.0) Basophils (%) (Auto) 0.8 % (0.0-2.0) Sodium Level 139 MMOL/L (136-145) Potassium Level 4.0 MMOL/L (3.5-5.1) Chloride Level 100 MMOL/L (98-107) Carbon Dioxide Level 33 MMOL/L (21-32) H Anion Gap 6 mmol/L (5-15) Blood Urea Nitrogen 49 mg/dL (7-18) H Creatinine 4.3 MG/DL (0.55-1.30) H Estimat Glomerular Filtration Rate 10.0 mL/min (>60) Glucose Level 83 MG/DL (74-106) Calcium Level 8.2 MG/DL (8.5-10.1) L Phosphorus Level 4.6 MG/DL (2.5-4.9) Magnesium Level 1.9 MG/DL (1.8-2.4) Total Bilirubin 0.4 MG/DL (0.2-1.0) Aspartate Amino Transf (AST/SGOT) 16 U/L (15-37) Alanine Aminotransferase (ALT/SGPT) 12 U/L (12-78) Alkaline Phosphatase 80 U/L (46-116) Total Protein 7.0 G/DL (6.4-8.2) Albumin 2.5 G/DL (3.4-5.0) L Globulin 4.5 g/dL Albumin/Globulin Ratio 0.6 (1.0-2.7) L Test 11/10/20 11:45 11/10/20 14:53 POC Whole Blood Glucose Pending Pending Current Medications Medications (Trade) Dose Ordered Sig/Yeimi Route PRN Reason Start Time Stop Time Status Last Admin Dose Admin Acetaminophen (Tylenol) 650 mg Q4H PRN ORAL Temp >100.5 10/27/20 14:15 11/26/20 14:14 11/05/20 17:22 Amlodipine Besylate (Norvasc) 5 mg DAILY ORAL 11/08/20 09:00 12/08/20 08:59 11/10/20 09:00 Citalopram Hydrobromide (CeleXA) 20 mg DAILY ORAL 10/29/20 09:00 11/28/20 08:59 11/10/20 09:00 Dextrose (Dextrose 50%) 25 ml Q30M PRN IV Hypoglycemia 10/28/20 20:45 01/26/21 20:44 Dextrose (Dextrose 50%) 50 ml Q30M PRN IV Hypoglycemia 10/28/20 20:45 01/26/21 20:44 Docusate Sodium (Colace) 100 mg TWICE A DAY ORAL 10/28/20 18:00 11/27/20 17:59 11/10/20 09:00 Haloperidol Lactate (Haldol) 5 mg Q6H PRN IM Agitation 10/28/20 15:45 12/12/20 15:44 Hydralazine HCl (Apresoline) 25 mg Q4H PRN ORAL For BP over 160 systolic 11/06/20 16:15 02/04/21 16:14 Hydralazine HCl (Apresoline) 25 mg Q6HR ORAL 11/07/20 18:00 02/05/21 17:59 11/10/20 12:41 Insulin Aspart (NovoLOG) BEFORE MEALS AND HS SUBQ 10/28/20 21:00 01/26/21 20:59 11/06/20 20:19 Insulin Detemir (Levemir) 10 units Q24H SUBQ 10/29/20 20:00 01/27/21 19:59 11/09/20 21:01 Megestrol Acetate (Megace) 400 mg DAILY ORAL 10/28/20 09:00 01/26/21 08:59 11/10/20 09:00 Pantoprazole (Protonix) 40 mg EVERY 12 HOURS ORAL 10/28/20 21:00 11/27/20 20:59 11/10/20 09:00 Sevelamer Carbonate (Renvela) 800 mg THREE TIMES A DAY ORAL 10/28/20 13:00 01/26/21 12:59 11/10/20 14:50 Zinc Sulfate (Zinc Sulfate) 220 mg DAILY ORAL 11/02/20 09:00 11/12/20 08:59 11/10/20 09:00 Aryan Darby MD Nov 10, 2020 16:00
--- NOTE | 2020-11-10 17:24 | General Progress Note ---
Subjective Allergies: Coded Allergies: No Known Allergies (Unverified , 09/23/20) Subjective sob better awake eating better blood sugar are improving Objective Last 24 Hour Vital Signs Date Time Temp Pulse Resp B/P (MAP) Pulse Ox O2 Delivery O2 Flow Rate FiO2 11/10/20 12:41 146/65 11/10/20 12:00 98.4 71 18 146/65 (92) 99 11/10/20 09:00 72 151/76 11/10/20 09:00 Nasal Cannula 2.0 11/10/20 08:00 98.1 72 19 151/76 (101) 99 11/10/20 06:00 107/60 11/10/20 04:00 98.1 77 19 107/58 (74) 97 11/10/20 00:00 97.9 74 21 142/68 (92) 98 11/10/20 00:00 138/68 11/09/20 21:00 Nasal Cannula 2.0 11/09/20 20:00 98.2 74 20 145/70 (95) 98 11/09/20 18:38 138/68 Intake and Output0 11/09/20 11/10/20 19:00 07:00 Intake Total 400 ml 210 ml Balance 400 ml 210 ml Intake Oral 210 ml Other 400 ml # Bowel Movements 1 Laboratory Tests 11/09/20 20:59: POC Whole Blood Glucose 129H 11/10/20 05:21: POC Whole Blood Glucose 82 11/10/20 07:20: White Blood Count 7.4, Red Blood Count 3.17L, Hemoglobin 10.1L, Hematocrit 31.5L , Mean Corpuscular Volume 99, Mean Corpuscular Hemoglobin 31.8H, Mean Corpuscular Hemoglobin Concent 32.0, Red Cell Distribution Width 18.2H, Platelet Count 177, Mean Platelet Volume 8.9, Neutrophils (%) (Auto) 72.0, Lymphocytes (%) (Auto) 15.2L, Monocytes (%) (Auto) 10.7H, Eosinophils (%) (Auto) 1.2, Basophils (%) (Auto) 0.8, Sodium Level 139, Potassium Level 4.0, Chloride Level 100, Carbon Dioxide Level 33H, Anion Gap 6, Blood Urea Nitrogen 49H, Creatinine 4.3H, Estimat Glomerular Filtration Rate 10.0, Glucose Level 83, Calcium Level 8.2L, Phosphorus Level 4.6, Magnesium Level 1.9, Total Bilirubin 0.4, Aspartate Amino Transf (AST/SGOT) 16, Alanine Aminotransferase (ALT/SGPT) 12, Alkaline Phosphatase 80, Total Protein 7.0, Albumin 2.5L, Globulin 4.5, Albumin/Globulin Ratio 0.6L 11/10/20 11:45: POC Whole Blood Glucose [Pending] 11/10/20 14:53: POC Whole Blood Glucose [Pending] Height (Feet): 5 Height (Inches): 1.00 Weight (Pounds): 92 General Appearance: alert EENT: PERRL/EOMI Neck: supple Cardiovascular: regular rhythm Respiratory/Chest: normal breath sounds Abdomen: non tender, soft Assessment/Plan Status: stable Assessment/Plan: 1 sob 2 covid pna cont isolation 3 chf diastolic acute 4 esrd on hd 5 failure of thrive 6 dementia 7 dm poory controlled due to steroids 8 hypotension 9 hyperkalemia rpt ok add levamier and high dose short insulin pt/ot eval dw pt pt is very weak id for evaluation for rpt covid for dc plan cardio and pulmonary consult cont current tx Cesar Swanson MD Nov 10, 2020 17:24
--- NOTE | 2020-11-10 19:30 | NUR ---
NURSE HAND-OFF: Important Events on Shift:[] Patient Status: [] Diet: [renal] Pending Orders: [] Pending Results/Labs:[] Pending MD notification:[check with dr Stiles if need another Covid test for DC/SNF, check with CM as well] Latest Vital Signs: Temperature 98.9 , Pulse 79 , B/P 137 /70 , Respiratory Rate 18 , O2 SAT 98 , Nasal Cannula, O2 Flow Rate 2.0 . Vital Sign Comment: [] Latest Ness Fall Score: 50 Fall Risk: High Risk Safety Measures: Call light Within Reach, Bed Alarm Zone 1, Side Rails Side Rails x2, Bed position Low and Locked. Fall Precautions: Yellow Socks Yellow Gown Door Sign Patient Fall Education Report given to [ZENAIDA Osullivan].
--- NOTE | 2020-11-10 19:30 | NUR ---
NURSE NOTES: Patient in bed, on O2 @ 2LPM via nasal cannula. No complaint at this time. Call light in reach. Bed in lowest, lock engaged and alarm on. Will continue to monitor.
[2020-11-10 20:00] VITALS: BP 146/60
[2020-11-10] MEDS: Levemir Flexpen SUBQ SCH (21:54)
[2020-11-11] VITALS: BP 152/68
[2020-11-11] MEDS: HydrALAZINE 25mg tab ORAL SCH ×4 (00:32→18:20)
[2020-11-11 04:00] VITALS: BP 140/59
[2020-11-11] MEDS: NovoLOG Insulin Flexpen SUBQ SCH ×4 (05:05→21:00)
--- NOTE | 2020-11-11 06:35 | NUR ---
NURSE NOTES: Patient had blood sugar of 55 and rechecked 57. Juice was given and after 20m mins blood sugar went up to 88.
--- NOTE | 2020-11-11 06:38 | NUR ---
NURSE NOTES: Called Dr. Swanson's number on the status board. Someone answer and said to send a message to [phone], done. Addendum: 11/11/20 at 0640 by GLORY MURRAY RN This note is regarding patient's low blood sugar this am.
--- NOTE | 2020-11-11 06:59 | Hematology/Onc Progress Note ---
Assessment/Plan Assessment/Plan # Anemia of chronic disease due to underlying chronic medical issues, multifactorial v Gi bleed --> Anemia workup has been ordered, rule out gi bleed --> No evidence of hemolysis is noted, peripheral smear has been reviewed. --> Hgb goal >7. Transfuse prn --> Epogen or iron at this time is not particularly indicated --> Medications have been reviewed --> low threshold for gi evaluation in case has occult + --> hgb 11-->9.6-->10.4 # Covid pna cont isolation -> completed steriods --> per pulm recs # chf diastolic acute -> cards aware # Esrd on hd --> per renal # failure of thrive # dementia # dm poory controlled due to steroids Appreciate consultation and dw PCP Subjective Constitutional: Denies: no symptoms, chills, fever, malaise, weakness, other HEENT: Denies: no symptoms, eye pain, blurred vision, tearing, double vision, ear pain, ear discharge, nose pain, nose congestion, throat pain, throat swelling, mouth pain, mouth swelling, other Cardiovascular: Denies: no symptoms, chest pain, edema, irregular heart rate, lightheadedness, palpitations, syncope, other Gastrointestinal/Abdominal: Denies: no symptoms, abdomen distended, abdominal pain, black stools, tarry stools, blood in stool, constipated, diarrhea, difficulty swallowing, nausea, poor appetite, poor fluid intake, rectal bleeding, vomiting, other Genitourinary: Denies: no symptoms, burning, discharge, frequency, flank pain, hematuria, incontinence, pain, urgency, other Endocrine: Denies: no symptoms, excessive sweating, flushing, intolerance to cold, intolerance to heat, increased hunger, increased thirst, increased urine, unexplained weight gain, unexplained weight loss, other Allergies: Coded Allergies: No Known Allergies (Unverified , 09/23/20) Subjective 11/04 labs are noted, no bleeding, meds reviewed, on , seen by pulm 11/05 hd done yesterday, no bleeding, cbc is pending 11/06 awake, alert, labs are pending, reviewed managing consultant clinical professor recs 11/07 meds reviewed, labs noted, no bleeding 11/08 labs are noted, no bleeding, meds are reviewed 11/10 meds noted, no bleeding, no f/c, no bleeding 11/11 hgb 10.1 yest, pending for today cbc/bmp Objective Objective Current Medications Medications (Trade) Dose Ordered Sig/Yeimi Route PRN Reason Start Time Stop Time Status Last Admin Dose Admin Acetaminophen (Tylenol) 650 mg Q4H PRN ORAL Temp >100.5 10/27/20 14:15 11/26/20 14:14 11/05/20 17:22 Amlodipine Besylate (Norvasc) 5 mg DAILY ORAL 11/08/20 09:00 12/08/20 08:59 11/10/20 09:00 Citalopram Hydrobromide (CeleXA) 20 mg DAILY ORAL 10/29/20 09:00 11/28/20 08:59 11/10/20 09:00 Dextrose (Dextrose 50%) 25 ml Q30M PRN IV Hypoglycemia 10/28/20 20:45 01/26/21 20:44 Dextrose (Dextrose 50%) 50 ml Q30M PRN IV Hypoglycemia 10/28/20 20:45 01/26/21 20:44 Docusate Sodium (Colace) 100 mg TWICE A DAY ORAL 10/28/20 18:00 11/27/20 17:59 11/10/20 18:30 Haloperidol Lactate (Haldol) 5 mg Q6H PRN IM Agitation 10/28/20 15:45 12/12/20 15:44 Hydralazine HCl (Apresoline) 25 mg Q4H PRN ORAL For BP over 160 systolic 11/06/20 16:15 02/04/21 16:14 Hydralazine HCl (Apresoline) 25 mg Q6HR ORAL 11/07/20 18:00 02/05/21 17:59 11/11/20 05:02 Insulin Aspart (NovoLOG) BEFORE MEALS AND HS SUBQ 10/28/20 21:00 01/26/21 20:59 11/06/20 20:19 Insulin Detemir (Levemir) 10 units Q24H SUBQ 10/29/20 20:00 01/27/21 19:59 11/10/20 21:54 Megestrol Acetate (Megace) 400 mg DAILY ORAL 10/28/20 09:00 01/26/21 08:59 11/10/20 09:00 Pantoprazole (Protonix) 40 mg EVERY 12 HOURS ORAL 10/28/20 21:00 11/27/20 20:59 11/10/20 21:43 Sevelamer Carbonate (Renvela) 800 mg THREE TIMES A DAY ORAL 10/28/20 13:00 01/26/21 12:59 11/10/20 18:30 Zinc Sulfate (Zinc Sulfate) 220 mg DAILY ORAL 11/02/20 09:00 11/12/20 08:59 11/10/20 09:00 Last 24 Hour Vital Signs Date Time Temp Pulse Resp B/P (MAP) Pulse Ox O2 Delivery O2 Flow Rate FiO2 11/11/20 05:02 140/61 11/11/20 04:00 98.2 75 18 140/59 (86) 99 11/11/20 00:32 152/68 11/11/20 00:00 98.2 80 18 152/68 (96) 93 11/10/20 21:00 Nasal Cannula 2.0 11/10/20 20:00 98.2 76 18 146/60 (88) 97 11/10/20 18:31 137/70 11/10/20 16:00 98.9 79 18 137/70 (92) 98 11/10/20 12:41 146/65 11/10/20 12:00 98.4 71 18 146/65 (92) 99 11/10/20 09:00 72 151/76 11/10/20 09:00 Nasal Cannula 2.0 11/10/20 08:00 98.1 72 19 151/76 (101) 99 11/10/20 06:00 107/60 11/10/20 04:00 98.1 77 19 107/58 (74) 97 11/10/20 00:00 97.9 74 21 142/68 (92) 98 11/10/20 00:00 138/68 11/09/20 21:00 Nasal Cannula 2.0 11/09/20 21:00 Nasal Cannula 2.0 11/09/20 20:00 98.2 74 20 145/70 (95) 98 11/09/20 18:38 138/68 11/09/20 16:00 97.7 69 18 138/68 (91) 100 11/09/20 12:00 143/69 11/09/20 12:00 98.1 79 18 136/61 (86) 99 11/09/20 09:00 77 143/69 11/09/20 09:00 Nasal Cannula 2.0 11/09/20 08:00 98.8 77 17 143/69 (93) 99 Intake and Output 11/10/20 11/11/20 19:00 07:00 Intake Total 900 ml Balance 900 ml Intake Oral 300 ml Other 600 ml # Bowel Movements 1 Labs Test 11/08/20 14:31 11/08/20 18:29 11/09/20 05:51 11/09/20 06:50 POC Whole Blood Glucose 83 MG/DL (74-106) 72 MG/DL (74-106) 108 MG/DL (74-106) White Blood Count 9.8 K/UL (4.8-10.8) Red Blood Count 3.15 M/UL (4.20-5.40) Hemoglobin 9.9 G/DL (12.0-16.0) Hematocrit 31.0 % (37.0-47.0) Mean Corpuscular Volume 98 FL (80-99) Mean Corpuscular Hemoglobin 31.5 PG (27.0-31.0) Mean Corpuscular Hemoglobin Concent 32.0 G/DL (32.0-36.0) Red Cell Distribution Width 18.0 % (11.6-14.8) Platelet Count 194 K/UL (150-450) Mean Platelet Volume 8.1 FL (6.5-10.1) Neutrophils (%) (Auto) 82.6 % (45.0-75.0) Lymphocytes (%) (Auto) 8.2 % (20.0-45.0) Monocytes (%) (Auto) 7.4 % (1.0-10.0) Eosinophils (%) (Auto) 1.3 % (0.0-3.0) Basophils (%) (Auto) 0.5 % (0.0-2.0) Sodium Level 139 MMOL/L (136-145) Potassium Level 5.6 MMOL/L (3.5-5.1) Chloride Level 102 MMOL/L (98-107) Carbon Dioxide Level 29 MMOL/L (21-32) Anion Gap 8 mmol/L (5-15) Blood Urea Nitrogen 93 mg/dL (7-18) Creatinine 6.7 MG/DL (0.55-1.30) Estimat Glomerular Filtration Rate 6.0 mL/min (>60) Glucose Level 105 MG/DL (74-106) Calcium Level 8.6 MG/DL (8.5-10.1) Test 11/09/20 10:23 11/09/20 17:10 11/09/20 20:59 11/10/20 05:21 POC Whole Blood Glucose 129 MG/DL (74-106) 82 MG/DL (74-106) Test 11/10/20 07:20 11/10/20 11:45 11/10/20 14:53 11/10/20 21:45 White Blood Count 7.4 K/UL (4.8-10.8) Red Blood Count 3.17 M/UL (4.20-5.40) Hemoglobin 10.1 G/DL (12.0-16.0) Hematocrit 31.5 % (37.0-47.0) Mean Corpuscular Volume 99 FL (80-99) Mean Corpuscular Hemoglobin 31.8 PG (27.0-31.0) Mean Corpuscular Hemoglobin Concent 32.0 G/DL (32.0-36.0) Red Cell Distribution Width 18.2 % (11.6-14.8) Platelet Count 177 K/UL (150-450) Mean Platelet Volume 8.9 FL (6.5-10.1) Neutrophils (%) (Auto) 72.0 % (45.0-75.0) Lymphocytes (%) (Auto) 15.2 % (20.0-45.0) Monocytes (%) (Auto) 10.7 % (1.0-10.0) Eosinophils (%) (Auto) 1.2 % (0.0-3.0) Basophils (%) (Auto) 0.8 % (0.0-2.0) Sodium Level 139 MMOL/L (136-145) Potassium Level 4.0 MMOL/L (3.5-5.1) Chloride Level 100 MMOL/L (98-107) Carbon Dioxide Level 33 MMOL/L (21-32) Anion Gap 6 mmol/L (5-15) Blood Urea Nitrogen 49 mg/dL (7-18) Creatinine 4.3 MG/DL (0.55-1.30) Estimat Glomerular Filtration Rate 10.0 mL/min (>60) Glucose Level 83 MG/DL (74-106) Calcium Level 8.2 MG/DL (8.5-10.1) Phosphorus Level 4.6 MG/DL (2.5-4.9) Magnesium Level 1.9 MG/DL (1.8-2.4) Total Bilirubin 0.4 MG/DL (0.2-1.0) Aspartate Amino Transf (AST/SGOT) 16 U/L (15-37) Alanine Aminotransferase (ALT/SGPT) 12 U/L (12-78) Alkaline Phosphatase 80 U/L (46-116) Total Protein 7.0 G/DL (6.4-8.2) Albumin 2.5 G/DL (3.4-5.0) Globulin 4.5 g/dL Albumin/Globulin Ratio 0.6 (1.0-2.7) Test 11/11/20 05:04 11/11/20 05:07 POC Whole Blood Glucose 55 MG/DL (74-106) Height (Feet): 5 Height (Inches): 1.00 Weight (Pounds): 92 Objective Gen: nad Pulm: ctab CV: rrr Abd: soft, nt, nd ext: no carliee Timothy Lam MD Nov 11, 2020 06:59
--- NOTE | 2020-11-11 07:23 | NUR ---
NURSE HAND-OFF: Important Events on Shift: hygiene, low blood sugar this am, juice given 88, Dr. Swanson made aware Patient Status: Diet: renal Pending Orders: Pending Results/Labs: Pending MD notification: Latest Vital Signs: Temperature 98.2 , Pulse 75 , B/P 140 /61 , Respiratory Rate 18 , O2 SAT 99 , Nasal Cannula, O2 Flow Rate 2.0 . Vital Sign Comment: Latest Ness Fall Score: 50 Fall Risk: High Risk Safety Measures: Call light Within Reach, Bed Alarm Zone 1, Side Rails Side Rails x2, Bed position Low and Locked. Fall Precautions: Yellow Socks Yellow Gown Door Sign Patient Fall Education Report given to ZENAIDA Orr.
--- NOTE | 2020-11-11 07:26 | NUR ---
NURSE NOTES: pt is alert and awake, eating breakfast at this time. tolerates meals well. no aspiration and coughing noted while eating. respiration is even and unlabored with O2@ 2l/min via NC. HOB elevated. no acute distress noted at this time. Left AV fistula inplace. no redness and tenderness noted on site. call light within reach.
--- NOTE | 2020-11-11 07:33 | General Progress Note ---
Subjective Allergies: Coded Allergies: No Known Allergies (Unverified , 09/23/20) Subjective sob better awake eating better Objective Last 24 Hour Vital Signs Date Time Temp Pulse Resp B/P (MAP) Pulse Ox O2 Delivery O2 Flow Rate FiO2 11/11/20 05:02 140/61 11/11/20 04:00 98.2 75 18 140/59 (86) 99 11/11/20 00:32 152/68 11/11/20 00:00 98.2 80 18 152/68 (96) 93 11/10/20 21:00 Nasal Cannula 2.0 11/10/20 20:00 98.2 76 18 146/60 (88) 97 11/10/20 18:31 137/70 11/10/20 16:00 98.9 79 18 137/70 (92) 98 11/10/20 12:41 146/65 11/10/20 12:00 98.4 71 18 146/65 (92) 99 11/10/20 09:00 72 151/76 11/10/20 09:00 Nasal Cannula 2.0 11/10/20 08:00 98.1 72 19 151/76 (101) 99 Intake and Output 11/10/20 11/11/20 19:00 07:00 Intake Total 900 ml Balance 900 ml Intake Oral 300 ml Other 600 ml # Bowel Movements 1 Laboratory Tests 11/10/20 11:45: POC Whole Blood Glucose [Pending] 11/10/20 14:53: POC Whole Blood Glucose [Pending] 11/10/20 21:45: POC Whole Blood Glucose [Pending] 11/11/20 05:04: POC Whole Blood Glucose 55L 11/11/20 05:07: POC Whole Blood Glucose [Pending] Height (Feet): 5 Height (Inches): 1.00 Weight (Pounds): 92 General Appearance: no apparent distress EENT: PERRL/EOMI Neck: supple Cardiovascular: regular rhythm Respiratory/Chest: crackles/rales Abdomen: non tender, soft Extremities: non-tender Assessment/Plan Status: stable Assessment/Plan: 1 sob 2 covid pna cont isolation 3 chf diastolic acute 4 esrd on hd 5 failure of thrive 6 dementia 7 dm poory controlled due to steroids 8 hypotension 9 hyperkalemia rpt ok add levamier and high dose short insulin pt/ot eval dw pt pt is very weak id for evaluation for rpt covid for dc plan cardio and pulmonary consult cont current tx Cesar Swanson MD Nov 11, 2020 07:33
[2020-11-11 08:00] VITALS: BP 151/63
--- NOTE | 2020-11-11 08:28 | Cardiology Progress Note ---
Assessment/Plan Status Narrative 1. COVID-19 viral PNA low grade fever, improved antiviral tx per ID 2. HFrEF, acute on chronic systolic on diastolic HF with EF 35-40% BNP severely elevated Fluid balance with HD Troponin negative Good O2 perfusion 3. ESRD on HD Aneuric 4. HTN - under better control 5. Mitral regurgitation - mod-severe contributing to severity of HF 6. possible ASD with L to R shunt 7. Sinus tachycardia 2/2 viral PNA and fever rate controlled, in SR 8. Anemia of chronic disease SBP under better control, fluid balance with HD. Tx for viral PNA per ID. In SR, rate controlled. Subjective Cardiovascular: Reports: edema Respiratory: Reports: shortness of breath Gastrointestinal/Abdominal: Reports: poor appetite Genitourinary: Reports: no symptoms Subjective SBP and HR in normal territory, good O2 perfusion Objective Last 24 Hour Vital Signs Date Time Temp Pulse Resp B/P (MAP) Pulse Ox O2 Delivery O2 Flow Rate FiO2 11/11/20 05:02 140/61 11/11/20 04:00 98.2 75 18 140/59 (86) 99 11/11/20 00:32 152/68 11/11/20 00:00 98.2 80 18 152/68 (96) 93 11/10/20 21:00 Nasal Cannula 2.0 11/10/20 20:00 98.2 76 18 146/60 (88) 97 11/10/20 18:31 137/70 11/10/20 16:00 98.9 79 18 137/70 (92) 98 11/10/20 12:41 146/65 11/10/20 12:00 98.4 71 18 146/65 (92) 99 11/10/20 09:00 72 151/76 11/10/20 09:00 Nasal Cannula 2.0 General Appearance: no apparent distress EENT: PERRL/EOMI Neck: no JVD Rhythm: NSR Cardiovascular: normal rate Respiratory/Chest: no accessory muscle use Neurologic: embedded firmware developer [id number] grossly normal Intake and Output 11/10/20 11/11/20 19:00 07:00 Intake Total 900 ml Balance 900 ml Intake Oral 300 ml Other 600 ml # Bowel Movements 1 Laboratory Tests Test 11/10/20 11:45 11/10/20 14:53 11/10/20 21:45 11/11/20 05:04 POC Whole Blood Glucose Pending Pending Pending 55 MG/DL (74-106) L Test 11/11/20 05:07 POC Whole Blood Glucose Pending Pamela Chowdhury PA-C Nov 11, 2020 08:28
--- NOTE | 2020-11-11 09:17 | Pulmonology Progress Note ---
Subjective ROS Limited/Unobtainable: Yes Interval Events: none major reported per nursing Constitutional: Denies: fever HEENT: Repors: no symptoms Respiratory: Reports: no symptoms Cardiovascular: Reports: no symptoms Gastrointestinal/Abdominal: Denies: nausea, vomiting, diarrhea Musculoskeletal: Denies: pain Allergies: Coded Allergies: No Known Allergies (Unverified , 09/23/20) Objective Last 24 Hour Vital Signs Date Time Temp Pulse Resp B/P (MAP) Pulse Ox O2 Delivery O2 Flow Rate FiO2 11/11/20 05:02 140/61 11/11/20 04:00 98.2 75 18 140/59 (86) 99 11/11/20 00:32 152/68 11/11/20 00:00 98.2 80 18 152/68 (96) 93 11/10/20 21:00 Nasal Cannula 2.0 11/10/20 20:00 98.2 76 18 146/60 (88) 97 11/10/20 18:31 137/70 11/10/20 16:00 98.9 79 18 137/70 (92) 98 11/10/20 12:41 146/65 11/10/20 12:00 98.4 71 18 146/65 (92) 99 Intake and Output 11/10/20 11/11/20 19:00 07:00 Intake Total 900 ml Balance 900 ml Intake Oral 300 ml Other 600 ml # Bowel Movements 1 Objective 11/11 no change 11/10 s/p dialysis; 1.6L removed; saturating well on 2 lpm NC 11/09 due for dialysis today; continues to saturate well on 2 lpm NC 11/08 s/p dialysis; saturating well on 2 lpm NC 11/07/2020 s/p dialysis 11/06/2020 pt being seen by PT; saturating well on 2 lpm NC; due for dialysis today 11/05/2020 pt asleep; s/p dialysis; saturating well on 2 lpm NC 11/04/2020 pt asleep; saturating well on 2 lpm NC; NAD 11/03/2020 saturating well on 2 lpm NC; eating in bed; NAD 11/02/2020 saturating well on 1 lpm NC; s/p dialysis 11/01/2020 saturating well on 1 lpm NC 10/31/2020 patient alert; saturating well on 1 lpm NC 10/30/2020 pt asleep; saturating well on low flow oxygen 10/29/2020 pt asleep in bed; saturating well on low flow oxygen General Appearance: other - thin HEENT: normocephalic, atraumatic Respiratory: chest wall non-tender, rhonchi - bilaterally, other - dialysis catheter Cardiovascular: normal rate, regular rhythm Abdomen: soft, non tender Laboratory Tests 11/10/20 11:45: POC Whole Blood Glucose [Pending] 11/10/20 14:53: POC Whole Blood Glucose [Pending] 11/10/20 21:45: POC Whole Blood Glucose [Pending] 11/11/20 05:04: POC Whole Blood Glucose 55L 11/11/20 05:07: POC Whole Blood Glucose [Pending] Current Medications Medications (Trade) Dose Ordered Sig/Yeimi Route PRN Reason Start Time Stop Time Status Last Admin Dose Admin Acetaminophen (Tylenol) 650 mg Q4H PRN ORAL Temp >100.5 10/27/20 14:15 11/26/20 14:14 11/05/20 17:22 Amlodipine Besylate (Norvasc) 5 mg DAILY ORAL 11/08/20 09:00 12/08/20 08:59 11/10/20 09:00 Citalopram Hydrobromide (CeleXA) 20 mg DAILY ORAL 10/29/20 09:00 11/28/20 08:59 11/10/20 09:00 Dextrose (Dextrose 50%) 25 ml Q30M PRN IV Hypoglycemia 10/28/20 20:45 01/26/21 20:44 Dextrose (Dextrose 50%) 50 ml Q30M PRN IV Hypoglycemia 10/28/20 20:45 01/26/21 20:44 Docusate Sodium (Colace) 100 mg TWICE A DAY ORAL 10/28/20 18:00 11/27/20 17:59 11/10/20 18:30 Haloperidol Lactate (Haldol) 5 mg Q6H PRN IM Agitation 10/28/20 15:45 12/12/20 15:44 Hydralazine HCl (Apresoline) 25 mg Q4H PRN ORAL For BP over 160 systolic 11/06/20 16:15 02/04/21 16:14 Hydralazine HCl (Apresoline) 25 mg Q6HR ORAL 11/07/20 18:00 02/05/21 17:59 11/11/20 05:02 Insulin Aspart (NovoLOG) BEFORE MEALS AND HS SUBQ 10/28/20 21:00 01/26/21 20:59 11/06/20 20:19 Insulin Detemir (Levemir) 10 units Q24H SUBQ 10/29/20 20:00 01/27/21 19:59 11/10/20 21:54 Megestrol Acetate (Megace) 400 mg DAILY ORAL 10/28/20 09:00 01/26/21 08:59 11/10/20 09:00 Pantoprazole (Protonix) 40 mg EVERY 12 HOURS ORAL 10/28/20 21:00 11/27/20 20:59 11/10/20 21:43 Sevelamer Carbonate (Renvela) 800 mg THREE TIMES A DAY ORAL 10/28/20 13:00 01/26/21 12:59 11/10/20 18:30 Zinc Sulfate (Zinc Sulfate) 220 mg DAILY ORAL 11/02/20 09:00 11/12/20 08:59 11/10/20 09:00 Assessment/Plan Assessment/Plan 1. COVID-19 pneumonia. - wean down oxygen as tolerated while keeping SaO2 >92%; currently saturating well on 2 lpm NC - CXR 10/27/2020 shows multifocal infiltrate. - s/p decadron - s/p ceftriaxone and azithromycin. - Repeat COVID-19 test 10/29/2020 positive - Continue isolation. 2. Renal failure, on dialysis. - per renal 3. Congestive heart failure. - BNP >35,000 - 2D echo EF 35-40% - management per cardio 4. Right eye conjunctivitis. - improved 5. DVT ppx - D-dimer 3.08, CRP 16.1 -> 4.0 - 10/29/2020 venous ultrasound unremarkable - On SCD 6. hyperkalemia - per renal We will follow carefully The care of this patient was discussed with my supervising physician Time spent for this encounter was approximately 31 minutes Zbigniew Serrano Nov 11, 2020 09:17 Naman Krause MD Nov 11, 2020 17:46
[2020-11-11] MEDS: Docusate 100mg cap ORAL SCH ×2 (10:46→18:20)
[2020-11-11] MEDS: Citalopram Hydrobromide 10mg Tab ORAL SCH (10:46)
[2020-11-11] MEDS: Megace 400mg/10ml Susp ORAL SCH (10:46)
[2020-11-11] MEDS: Zinc Sulfate 220mg ORAL SCH (10:48)
--- NOTE | 2020-11-11 11:31 | Nephrology Progress Note ---
Assessment/Plan Problem List: (1) End stage renal disease on dialysis (2) C. difficile colitis (3) Transient hypotension (4) Diastolic CHF, chronic Assessment 75-year-old female presents with respiratory distress and COVID-19 infection Patient has end-stage renal disease and last dialyzed 4 days ago Patient presents with high potassium History of C. difficile colitis History of diabetes mellitus History of hypertension, presents with transient hypotension History of cardiomyopathy and diastolic CHF Plan November 11: Last dialysis November 09. No labs drawn today yet. We will order dialysis tomorrow. November 10: Patient was dialyzed yesterday. Potassium now within normal limit. Blood pressure stable. Continue same. November 09: Due for dialysis today. Labs reviewed. Potassium 5.6 which will be corrected after dialysis. Will check repeat lab tomorrow. November 08: Dialyzed yesterday. Labs reviewed. Continue per consultants. Due for dialysis tomorrow. November 07: Due for dialysis today. Blood pressure medication adjusted. Will check lab tomorrow. November 06: Labs reviewed. Medication list reviewed. Will order dialysis for tomorrow. Continue per consultants. Hydralazine 25 mg as needed for high blood pressure ordered. November 05: Discussed with dialysis nurse. Patient was dialyzed late last night. However today's lab results suggestive of high BUN and creatinine. Serum potassium elevated but the repeat is normal. Will hold the Kayexalate. Will attempt another dialysis and order post BUN and creatinine. Reevaluation on November 05 at 3 PM: Stat BMP done as it appears this morning's lab was prior to dialysis even though it was marked 6 AM. The stat dialysis orders will be canceled based on new lab results. Will arrange for next dialysis on November 07 unless she needs it earlier. November 04: Patient due for dialysis today. Blood pressure stable. No UF is scheduled during dialysis. Check labs tomorrow. No can panel drawn today. November 03: Patient was dialyzed yesterday. Labs reviewed. Blood pressure more stable. Due for dialysis tomorrow. No ultrafiltration is ordered. November 02: Dialyzed today. Blood pressure 95 systolic. Parameters for BP medications. Patient asymptomatic. Albumin 25% 100 cc 1 bolus dose ordered. Continue rest. Discussed with RN. November 01: Dialyzed yesterday. Labs reviewed. Medication list reviewed. Blood pressure medication adjusted. Hemodialysis tomorrow. October 31: Due for dialysis today. No labs drawn today. Continue per consultants. Will check can panel tomorrow. Medication list reviewed. Blood pressure stable. October 30: Last dialyzed October 29. Due for dialysis October 31. Continue p er consultants. October 29: Patient dialyzed last evening of October 27. Serum creatinine and electrolyte much improved Continue per current treatment plan Per orders Next dialysis today October 29 Check labs in a.m. Subjective ROS Limited/Unobtainable: No Constitutional: Reports: malaise Objective Objective Last 24 Hour Vital Signs Date Time Temp Pulse Resp B/P (MAP) Pulse Ox O2 Delivery O2 Flow Rate FiO2 11/11/20 10:47 80 151/63 11/11/20 08:00 98.2 80 19 151/63 (92) 99 11/11/20 05:02 140/61 11/11/20 04:00 98.2 75 18 140/59 (86) 99 11/11/20 00:32 152/68 11/11/20 00:00 98.2 80 18 152/68 (96) 93 11/10/20 21:00 Nasal Cannula 2.0 11/10/20 20:00 98.2 76 18 146/60 (88) 97 11/10/20 18:31 137/70 11/10/20 16:00 98.9 79 18 137/70 (92) 98 11/10/20 12:41 146/65 11/10/20 12:00 98.4 71 18 146/65 (92) 99 Intake and Output 11/10/20 11/11/20 19:00 07:00 Intake Total 900 ml Balance 900 ml Intake Oral 300 ml Other 600 ml # Bowel Movements 1 Laboratory Tests 11/10/20 11:45: POC Whole Blood Glucose [Pending] 11/10/20 14:53: POC Whole Blood Glucose [Pending] 11/10/20 21:45: POC Whole Blood Glucose [Pending] 11/11/20 05:04: POC Whole Blood Glucose 55L 11/11/20 05:07: POC Whole Blood Glucose [Pending] 11/11/20 10:25: White Blood Count [Pending], Red Blood Count [Pending], Hemoglobin [Pending], Hematocrit [Pending], Mean Corpuscular Volume [Pending], Mean Corpuscular Hemoglobin [Pending], Mean Corpuscular Hemoglobin Concent [Pending], Red Cell Distribution Width [Pending], Platelet Count [Pending], Mean Platelet Volume [Pending], Neutrophils (%) (Auto) [Pending], Lymphocytes (%) (Auto) [Pending], Monocytes (%) (Auto) [Pending], Eosinophils (%) (Auto) [Pending], Basophils (%) (Auto) [Pending] Height (Feet): 5 Height (Inches): 1.00 Weight (Pounds): 92 General Appearance: no apparent distress Cardiovascular: normal rate Respiratory/Chest: decreased breath sounds Abdomen: distended Objective No change Chris Puckett MD Nov 11, 2020 11:31
[2020-11-11 11:33] LABS: HEMATOCRIT 35.2 % (37.0-47.0); HEMOGLOBIN 11.5 G/DL (12.0-16.0); MEAN CORPUSCULAR VOLUME 98 FL (80-99); PLATELET COUNT 98 K/UL (150-450); RED CELL DISTRIBUTION WIDTH 18.7 % (11.6-14.8); WHITE BLOOD COUNT 8.4 K/UL (4.8-10.8)
[2020-11-11 12:00] VITALS: BP 148/68
--- NOTE | 2020-11-11 12:22 | Infectious Diseases Prog Note ---
Assessment/Plan Assessment/Plan antibiotics : none A 1. COVID-19 pneumonia on 2 L oxygen with O2 saturation of 98 %. s/p ivermectin s/p decadron 2. Renal failure, on dialysis. 3. Congestive heart failure. 4. Right eye conjunctivitis improving 5. hypertension P 1. continue off antibiotics 2. continue isolation Subjective Constitutional: Denies: fever, chills Respiratory: Denies: shortness of breath, dry cough Gastrointestinal/Abdominal: Denies: nausea, vomiting, diarrhea Musculoskeletal: Denies: pain Allergies: Coded Allergies: No Known Allergies (Unverified , 09/23/20) Objective Last 24 Hour Vital Signs Date Time Temp Pulse Resp B/P (MAP) Pulse Ox O2 Delivery O2 Flow Rate FiO2 11/11/20 10:47 80 151/63 11/11/20 08:00 98.2 80 19 151/63 (92) 99 11/11/20 05:02 140/61 11/11/20 04:00 98.2 75 18 140/59 (86) 99 11/11/20 00:32 152/68 11/11/20 00:00 98.2 80 18 152/68 (96) 93 11/10/20 21:00 Nasal Cannula 2.0 11/10/20 20:00 98.2 76 18 146/60 (88) 97 11/10/20 18:31 137/70 11/10/20 16:00 98.9 79 18 137/70 (92) 98 11/10/20 12:41 146/65 Height (Feet): 5 Height (Inches): 1.00 Weight (Pounds): 92 Laboratory Tests Test 11/10/20 14:53 11/10/20 21:45 11/11/20 05:04 11/11/20 05:07 POC Whole Blood Glucose Pending Pending 55 MG/DL (74-106) L Pending Test 11/11/20 10:25 White Blood Count 8.4 K/UL (4.8-10.8) Red Blood Count 3.60 M/UL (4.20-5.40) L Hemoglobin 11.5 G/DL (12.0-16.0) L Hematocrit 35.2 % (37.0-47.0) L Mean Corpuscular Volume 98 FL (80-99) Mean Corpuscular Hemoglobin 32.0 PG (27.0-31.0) H Mean Corpuscular Hemoglobin Concent 32.6 G/DL (32.0-36.0) Red Cell Distribution Width 18.7 % (11.6-14.8) H Platelet Count 98 K/UL (150-450) L Mean Platelet Volume 9.1 FL (6.5-10.1) Neutrophils (%) (Auto) % (45.0-75.0) Lymphocytes (%) (Auto) % (20.0-45.0) Monocytes (%) (Auto) % (1.0-10.0) Eosinophils (%) (Auto) % (0.0-3.0) Basophils (%) (Auto) % (0.0-2.0) Neutrophils % (Manual) Pending Lymphocytes % (Manual) Pending Platelet Estimate Pending Platelet Morphology Pending Current Medications Medications (Trade) Dose Ordered Sig/Yeimi Route PRN Reason Start Time Stop Time Status Last Admin Dose Admin Acetaminophen (Tylenol) 650 mg Q4H PRN ORAL Temp >100.5 10/27/20 14:15 11/26/20 14:14 11/05/20 17:22 Amlodipine Besylate (Norvasc) 5 mg DAILY ORAL 11/08/20 09:00 12/08/20 08:59 11/11/20 10:47 Citalopram Hydrobromide (CeleXA) 20 mg DAILY ORAL 10/29/20 09:00 11/28/20 08:59 11/11/20 10:46 Dextrose (Dextrose 50%) 25 ml Q30M PRN IV Hypoglycemia 10/28/20 20:45 01/26/21 20:44 Dextrose (Dextrose 50%) 50 ml Q30M PRN IV Hypoglycemia 10/28/20 20:45 01/26/21 20:44 Docusate Sodium (Colace) 100 mg TWICE A DAY ORAL 10/28/20 18:00 11/27/20 17:59 11/11/20 10:46 Haloperidol Lactate (Haldol) 5 mg Q6H PRN IM Agitation 10/28/20 15:45 12/12/20 15:44 Hydralazine HCl (Apresoline) 25 mg Q4H PRN ORAL For BP over 160 systolic 11/06/20 16:15 02/04/21 16:14 Hydralazine HCl (Apresoline) 25 mg Q6HR ORAL 11/07/20 18:00 02/05/21 17:59 11/11/20 05:02 Insulin Aspart (NovoLOG) BEFORE MEALS AND HS SUBQ 10/28/20 21:00 01/26/21 20:59 11/06/20 20:19 Insulin Detemir (Levemir) 10 units Q24H SUBQ 10/29/20 20:00 01/27/21 19:59 11/10/20 21:54 Megestrol Acetate (Megace) 400 mg DAILY ORAL 10/28/20 09:00 01/26/21 08:59 11/11/20 10:46 Pantoprazole (Protonix) 40 mg EVERY 12 HOURS ORAL 10/28/20 21:00 11/27/20 20:59 11/11/20 10:47 Sevelamer Carbonate (Renvela) 800 mg THREE TIMES A DAY ORAL 10/28/20 13:00 01/26/21 12:59 11/11/20 10:47 Zinc Sulfate (Zinc Sulfate) 220 mg DAILY ORAL 11/02/20 09:00 11/12/20 08:59 11/11/20 10:48 Erika Stiles MD Nov 11, 2020 12:22
--- NOTE | 2020-11-11 12:26 | NUR ---
RD ASSESSMENT & RECOMMENDATIONS SEE CARE ACTIVITY FOR COMPLETE ASSESSMENT DAILY ESTIMATED NEEDS: Needs based on ESRD on HD 42kg 30-40 kcals/kg 3027-0507 total kcals 1.25-1.8 g protein/kg 53-76 g total protein Fluid per MD, on HD mL/kg total fluid mLs NUTRITION DIAGNOSIS: Increased kcal and pro needs r/t renal dysfunction, wound healing as evidenced by pt w/ ESRD on HD, admitted w/ wounds, including sacral DTPI. CURRENT DIET:Renal diet PO DIET RECOMMENDATIONS: Maintain renal diet/ texture per JOB PLACEMENT OFFICER ADDITIONAL RECOMMENDATIONS: 1) Daily wts, calibrated bed scale 2) Rec JOB PLACEMENT OFFICER eval for appropriate texture 3) Add NEPRO TID w/ meals (425 kcal/ 19g pro per pack) 4) Monitor for hypoglycemia (BG 57 and 55 this AM) -> DC LEVEMIR @ [facility]- pt now w/ improved BG, variable PO 5) Wound healing: Nephrovite x 1, ZnSO4 220mg QD x 10 days Abdirahman BID as tolerated
[2020-11-11 16:00] VITALS: BP_SYST 145; BP_SYST 149; BP_DIAS 70; BP_DIAS 73
--- NOTE | 2020-11-11 17:41 | Surgery Progress Note ---
Surgery Progress Note Subjective Additional Comments no acute events comfortable appearing no n/v Objective Last 24 Hour Vital Signs Date Time Temp Pulse Resp B/P (MAP) Pulse Ox O2 Delivery O2 Flow Rate FiO2 11/11/20 16:00 98.2 77 18 149/70 (96) 98 11/11/20 13:28 148/68 11/11/20 12:00 98.2 82 18 148/68 (94) 95 11/11/20 10:47 80 151/63 11/11/20 09:00 Nasal Cannula 2.0 11/11/20 08:00 98.2 80 19 151/63 (92) 99 11/11/20 05:02 140/61 11/11/20 04:00 98.2 75 18 140/59 (86) 99 11/11/20 00:32 152/68 11/11/20 00:00 98.2 80 18 152/68 (96) 93 11/10/20 21:00 Nasal Cannula 2.0 11/10/20 20:00 98.2 76 18 146/60 (88) 97 11/10/20 18:31 137/70 I&O Intake and Output 11/10/20 11/11/20 19:00 07:00 Intake Total 900 ml Balance 900 ml Intake Oral 300 ml Other 600 ml # Bowel Movements 1 Dressing: saturated Cardiovascular: RSR Respiratory: decreased breath sounds Abdomen: non-tender, present bowel sounds Extremities: no edema, no tenderness, no cyanosis Laboratory Tests Test 11/10/20 21:45 11/11/20 05:04 11/11/20 05:07 11/11/20 10:25 POC Whole Blood Glucose Pending 55 MG/DL (74-106) L Pending White Blood Count 8.4 K/UL (4.8-10.8) Red Blood Count 3.60 M/UL (4.20-5.40) L Hemoglobin 11.5 G/DL (12.0-16.0) L Hematocrit 35.2 % (37.0-47.0) L Mean Corpuscular Volume 98 FL (80-99) Mean Corpuscular Hemoglobin 32.0 PG (27.0-31.0) H Mean Corpuscular Hemoglobin Concent 32.6 G/DL (32.0-36.0) Red Cell Distribution Width 18.7 % (11.6-14.8) H Platelet Count 98 K/UL (150-450) L Mean Platelet Volume 9.1 FL (6.5-10.1) Neutrophils (%) (Auto) % (45.0-75.0) Lymphocytes (%) (Auto) % (20.0-45.0) Monocytes (%) (Auto) % (1.0-10.0) Eosinophils (%) (Auto) % (0.0-3.0) Basophils (%) (Auto) % (0.0-2.0) Differential Total Cells Counted 100 Neutrophils % (Manual) 72 % (45-75) Lymphocytes % (Manual) 21 % (20-45) Monocytes % (Manual) 6 % (1-10) Eosinophils % (Manual) 0 % (0-3) Basophils % (Manual) 1 % (0-2) Band Neutrophils 0 % (0-8) Platelet Estimate Decreased L Platelet Morphology Normal Anisocytosis 1+ Macrocytosis 1+ Test 11/11/20 13:21 11/11/20 16:20 POC Whole Blood Glucose 107 MG/DL (74-106) H 124 MG/DL (74-106) H Plan Problems: (1) Decubitus skin ulcer Assessment & Plan: Pt presented on admission with multiple Pressure Injuries. DTPI Sacrum(L)8cm x (W)8cm. Base of wound is purpuric with surrounding non- Blanchable erythema. Darker skin tone without erythema or induration periwound. Pt complained at site of DTPI when minimally palpated. Non-Blanchable erythema without induration R Ischium(L)7cm x (W)7.5cm. L Heel is boggy with non-Blanchable erythema. R heel is Boggy with non-blanchable erythema. Tx.Plan: Apply Moisture Barrier Paste to Sacrum. Cover with Optifoam drsg. Change every 3 days and prn.. Apply Moisture Barrier Paste to R and L Ischial tuberosities. Cover each Ischium with Optifoam drsgs. Change every 3 days and prn. Apply Cavilon Skin Barrier to R and L Heels and each Malleoli. Cover each site with Optifoam drsgs. Change every 7 days and prn. Cover Bony prominences as needed with Optifoam drsgs. Reposition at least every 2 hours or as tolerated. Off-load heels with Pillow. (2) Dyspnea (3) Respiratory distress (4) Pneumonia due to COVID-19 virus Assessment & Plan: ++ on tx id and pulm input appreciated limited movement will need to be cautions to ensure not worsening decub (5) Hypoglycemia (6) End stage renal disease on dialysis (7) Transient hypotension (8) Diastolic CHF, chronic (9) C. difficile colitis (10) Diarrhea Assessment & Plan: DAILY ESTIMATED NEEDS: Needs based on ESRD on HD 42kg 30-40 kcals/kg 9503-4205 total kcals 1.25-1.8 g protein/kg 53-76 g total protein Fluid per MD, on HD NUTRITION DIAGNOSIS: Increased kcal and pro needs r/t renal dysfunction, wound healing as evidenced by pt w/ ESRD on HD, admitted w/ wounds, including sacral DTPI. CURRENT DIET:Renal diet PO DIET RECOMMENDATIONS: Maintain renal diet/ texture per NUTRITION SERVICES ASSOCIATE ADDITIONAL RECOMMENDATIONS: 1) Daily wts, calibrated bed scale 2) Rec NUTRITION SERVICES ASSOCIATE eval for appropriate texture 3) Add NEPRO TID w/ meals (425 kcal/ 19g pro per pack) 4) Monitor for hypoglycemia w/ variable PO 5) Wound healing: Nephrovite x 1, ZnSO4 220mg QD x 10 days Abdirahman BID as tolerated (11) ESRD (end stage renal disease) (12) Altered mental status (13) Pneumonia Kurt Flores Nov 11, 2020 17:41
--- NOTE | 2020-11-11 19:20 | NUR ---
NURSE HAND-OFF: Important Events on Shift:n/a Patient Status: stable Diet: renal Pending Orders: n/a Pending Results/Labs:n/a Pending MD notification:n/a Latest Vital Signs: Temperature 98.7 , Pulse 80 , B/P 145 /73 , Respiratory Rate 19 , O2 SAT 98 , Nasal Cannula, O2 Flow Rate 2.0 . Vital Sign Comment: stable Latest Ness Fall Score: 50 Fall Risk: High Risk Safety Measures: Call light Within Reach, Bed Alarm Zone 1, Side Rails Side Rails x2, Bed position Low and Locked. Fall Precautions: Yellow Socks Yellow Gown Door Sign Patient Fall Education Report given to
--- NOTE | 2020-11-11 19:30 | NUR ---
NURSE NOTES: Received patient in bed. A&OX2. NC 2L on, no s/s of respiratory distress noted. IV site patent and intact. Bed in lowest position. Call light within reach. Will continue to monitor.
[2020-11-11 20:00] VITALS: BP 158/73
[2020-11-11] MEDS: Levemir Flexpen SUBQ SCH (21:37)
[2020-11-12] VITALS: BP 119/82
[2020-11-12] MEDS: HydrALAZINE 25mg tab ORAL SCH ×4 (00:33→18:00)
[2020-11-12 04:00] VITALS: BP 159/85
[2020-11-12] MEDS: NovoLOG Insulin Flexpen SUBQ SCH ×4 (06:05→21:01)
--- NOTE | 2020-11-12 06:48 | Hematology/Onc Progress Note ---
Assessment/Plan Assessment/Plan # Anemia of chronic disease due to underlying chronic medical issues, multifactorial v Gi bleed --> Anemia workup has been ordered, rule out gi bleed --> No evidence of hemolysis is noted, peripheral smear has been reviewed. --> Hgb goal >7. Transfuse prn --> Epogen or iron at this time is not particularly indicated --> Medications have been reviewed --> low threshold for gi evaluation in case has occult + --> hgb 11-->9.6-->10.4 # Thrombocytopenia due to Covid pna++++++++ --> cont isolation -> completed steriods --> per pulm recs --> plt 160-->98 # chf diastolic acute -> cards aware # Esrd on hd --> per renal # failure of thrive # dementia # dm poory controlled due to steroids Appreciate consultation and dw PCP Subjective Constitutional: Denies: no symptoms, chills, fever, malaise, weakness, other HEENT: Denies: no symptoms, eye pain, blurred vision, tearing, double vision, ear pain, ear discharge, nose pain, nose congestion, throat pain, throat swelling, mouth pain, mouth swelling, other Cardiovascular: Denies: no symptoms, chest pain, edema, irregular heart rate, lightheadedness, palpitations, syncope, other Respiratory: Denies: no symptoms, cough, shortness of breath, SOB with excertion, SOB at rest, sputum, wheezing, other Gastrointestinal/Abdominal: Denies: no symptoms, abdomen distended, abdominal pain, black stools, tarry stools, blood in stool, constipated, diarrhea, difficulty swallowing, nausea, poor appetite, poor fluid intake, rectal bleeding, vomiting, other Hematologic/Lymphatic: Denies: no symptoms, anemia, easy bleeding, easy bruisin g, adenopathy, other Allergies: Coded Allergies: No Known Allergies (Unverified , 09/23/20) Subjective 11/04 labs are noted, no bleeding, meds reviewed, on ster, seen by pulm 11/05 hd done yesterday, no bleeding, cbc is pending 11/06 awake, alert, labs are pending, reviewed networks computer consultant recs 11/07 meds reviewed, labs noted, no bleeding 11/08 labs are noted, no bleeding, meds are reviewed 11/10 meds noted, no bleeding, no f/c, no bleeding 11/11 hgb 10.1 yest, pending for today cbc/bmp 11/12 is on nc, no bleeding, plt lower ordered hep, hiv us abd Objective Objective Current Medications Medications (Trade) Dose Ordered Sig/Yeimi Route PRN Reason Start Time Stop Time Status Last Admin Dose Admin Acetaminophen (Tylenol) 650 mg Q4H PRN ORAL Temp >100.5 10/27/20 14:15 11/26/20 14:14 11/05/20 17:22 Amlodipine Besylate (Norvasc) 5 mg DAILY ORAL 11/08/20 09:00 12/08/20 08:59 11/11/20 10:47 Citalopram Hydrobromide (CeleXA) 20 mg DAILY ORAL 10/29/20 09:00 11/28/20 08:59 11/11/20 10:46 Dextrose (Dextrose 50%) 25 ml Q30M PRN IV Hypoglycemia 10/28/20 20:45 01/26/21 20:44 Dextrose (Dextrose 50%) 50 ml Q30M PRN IV Hypoglycemia 10/28/20 20:45 01/26/21 20:44 Docusate Sodium (Colace) 100 mg TWICE A DAY ORAL 10/28/20 18:00 11/27/20 17:59 11/11/20 18:20 Haloperidol Lactate (Haldol) 5 mg Q6H PRN IM Agitation 10/28/20 15:45 12/12/20 15:44 Hydralazine HCl (Apresoline) 25 mg Q4H PRN ORAL For BP over 160 systolic 11/06/20 16:15 02/04/21 16:14 Hydralazine HCl (Apresoline) 25 mg Q6HR ORAL 11/07/20 18:00 02/05/21 17:59 11/12/20 05:17 Insulin Aspart (NovoLOG) BEFORE MEALS AND HS SUBQ 10/28/20 21:00 01/26/21 20:59 11/06/20 20:19 Insulin Detemir (Levemir) 10 units Q24H SUBQ 10/29/20 20:00 01/27/21 19:59 11/11/20 21:37 Megestrol Acetate (Megace) 400 mg DAILY ORAL 10/28/20 09:00 01/26/21 08:59 11/11/20 10:46 Pantoprazole (Protonix) 40 mg EVERY 12 HOURS ORAL 10/28/20 21:00 11/27/20 20:59 11/11/20 21:28 Sevelamer Carbonate (Renvela) 800 mg THREE TIMES A DAY ORAL 10/28/20 13:00 01/26/21 12:59 11/11/20 18:20 Zinc Sulfate (Zinc Sulfate) 220 mg DAILY ORAL 11/02/20 09:00 11/12/20 08:59 11/11/20 10:48 Last 24 Hour Vital Signs Date Time Temp Pulse Resp B/P (MAP) Pulse Ox O2 Delivery O2 Flow Rate FiO2 11/12/20 05:17 159/85 11/12/20 04:00 97.9 87 17 159/85 (109) 98 11/12/20 00:33 119/82 11/12/20 00:00 98.2 102 19 119/82 (94) 99 11/11/20 21:00 Nasal Cannula 2.0 11/11/20 20:00 98.2 82 17 158/73 (101) 95 11/11/20 18:20 145/73 11/11/20 16:00 98.7 80 19 145/73 (97) 98 11/11/20 16:00 98.2 77 18 149/70 (96) 98 11/11/20 13:28 148/68 11/11/20 12:00 98.2 82 18 148/68 (94) 95 11/11/20 10:47 80 151/63 11/11/20 09:00 Nasal Cannula 2.0 11/11/20 08:00 98.2 80 19 151/63 (92) 99 11/11/20 05:02 140/61 11/11/20 04:00 98.2 75 18 140/59 (86) 99 11/11/20 00:32 152/68 11/11/20 00:00 98.2 80 18 152/68 (96) 93 11/10/20 21:00 Nasal Cannula 2.0 11/10/20 20:00 98.2 76 18 146/60 (88) 97 11/10/20 18:31 137/70 11/10/20 16:00 98.9 79 18 137/70 (92) 98 11/10/20 12:41 146/65 11/10/20 12:00 98.4 71 18 146/65 (92) 99 11/10/20 09:00 72 151/76 11/10/20 09:00 Nasal Cannula 2.0 11/10/20 08:00 98.1 72 19 151/76 (101) 99 Intake and Output 11/11/20 11/12/20 19:00 07:00 Intake Total 720 ml Balance 720 ml Intake Oral 720 ml # Bowel Movements 1 Labs Test 11/09/20 06:50 11/09/20 10:23 11/09/20 17:10 11/09/20 20:59 White Blood Count 9.8 K/UL (4.8-10.8) Red Blood Count 3.15 M/UL (4.20-5.40) Hemoglobin 9.9 G/DL (12.0-16.0) Hematocrit 31.0 % (37.0-47.0) Mean Corpuscular Volume 98 FL (80-99) Mean Corpuscular Hemoglobin 31.5 PG (27.0-31.0) Mean Corpuscular Hemoglobin Concent 32.0 G/DL (32.0-36.0) Red Cell Distribution Width 18.0 % (11.6-14.8) Platelet Count 194 K/UL (150-450) Mean Platelet Volume 8.1 FL (6.5-10.1) Neutrophils (%) (Auto) 82.6 % (45.0-75.0) Lymphocytes (%) (Auto) 8.2 % (20.0-45.0) Monocytes (%) (Auto) 7.4 % (1.0-10.0) Eosinophils (%) (Auto) 1.3 % (0.0-3.0) Basophils (%) (Auto) 0.5 % (0.0-2.0) Sodium Level 139 MMOL/L (136-145) Potassium Level 5.6 MMOL/L (3.5-5.1) Chloride Level 102 MMOL/L (98-107) Carbon Dioxide Level 29 MMOL/L (21-32) Anion Gap 8 mmol/L (5-15) Blood Urea Nitrogen 93 mg/dL (7-18) Creatinine 6.7 MG/DL (0.55-1.30) Estimat Glomerular Filtration Rate 6.0 mL/min (>60) Glucose Level 105 MG/DL (74-106) Calcium Level 8.6 MG/DL (8.5-10.1) POC Whole Blood Glucose 129 MG/DL (74-106) Test 11/10/20 05:21 11/10/20 07:20 11/10/20 11:45 11/10/20 14:53 POC Whole Blood Glucose 82 MG/DL (74-106) White Blood Count 7.4 K/UL (4.8-10.8) Red Blood Count 3.17 M/UL (4.20-5.40) Hemoglobin 10.1 G/DL (12.0-16.0) Hematocrit 31.5 % (37.0-47.0) Mean Corpuscular Volume 99 FL (80-99) Mean Corpuscular Hemoglobin 31.8 PG (27.0-31.0) Mean Corpuscular Hemoglobin Concent 32.0 G/DL (32.0-36.0) Red Cell Distribution Width 18.2 % (11.6-14.8) Platelet Count 177 K/UL (150-450) Mean Platelet Volume 8.9 FL (6.5-10.1) Neutrophils (%) (Auto) 72.0 % (45.0-75.0) Lymphocytes (%) (Auto) 15.2 % (20.0-45.0) Monocytes (%) (Auto) 10.7 % (1.0-10.0) Eosinophils (%) (Auto) 1.2 % (0.0-3.0) Basophils (%) (Auto) 0.8 % (0.0-2.0) Sodium Level 139 MMOL/L (136-145) Potassium Level 4.0 MMOL/L (3.5-5.1) Chloride Level 100 MMOL/L (98-107) Carbon Dioxide Level 33 MMOL/L (21-32) Anion Gap 6 mmol/L (5-15) Blood Urea Nitrogen 49 mg/dL (7-18) Creatinine 4.3 MG/DL (0.55-1.30) Estimat Glomerular Filtration Rate 10.0 mL/min (>60) Glucose Level 83 MG/DL (74-106) Calcium Level 8.2 MG/DL (8.5-10.1) Phosphorus Level 4.6 MG/DL (2.5-4.9) Magnesium Level 1.9 MG/DL (1.8-2.4) Total Bilirubin 0.4 MG/DL (0.2-1.0) Aspartate Amino Transf (AST/SGOT) 16 U/L (15-37) Alanine Aminotransferase (ALT/SGPT) 12 U/L (12-78) Alkaline Phosphatase 80 U/L (46-116) Total Protein 7.0 G/DL (6.4-8.2) Albumin 2.5 G/DL (3.4-5.0) Globulin 4.5 g/dL Albumin/Globulin Ratio 0.6 (1.0-2.7) Test 11/10/20 21:45 11/11/20 05:04 11/11/20 05:07 11/11/20 10:25 POC Whole Blood Glucose 55 MG/DL (74-106) White Blood Count 8.4 K/UL (4.8-10.8) Red Blood Count 3.60 M/UL (4.20-5.40) Hemoglobin 11.5 G/DL (12.0-16.0) Hematocrit 35.2 % (37.0-47.0) Mean Corpuscular Volume 98 FL (80-99) Mean Corpuscular Hemoglobin 32.0 PG (27.0-31.0) Mean Corpuscular Hemoglobin Concent 32.6 G/DL (32.0-36.0) Red Cell Distribution Width 18.7 % (11.6-14.8) Platelet Count 98 K/UL (150-450) Mean Platelet Volume 9.1 FL (6.5-10.1) Neutrophils (%) (Auto) % (45.0-75.0) Lymphocytes (%) (Auto) % (20.0-45.0) Monocytes (%) (Auto) % (1.0-10.0) Eosinophils (%) (Auto) % (0.0-3.0) Basophils (%) (Auto) % (0.0-2.0) Differential Total Cells Counted 100 Neutrophils % (Manual) 72 % (45-75) Lymphocytes % (Manual) 21 % (20-45) Monocytes % (Manual) 6 % (1-10) Eosinophils % (Manual) 0 % (0-3) Basophils % (Manual) 1 % (0-2) Band Neutrophils 0 % (0-8) Platelet Estimate Decreased Platelet Morphology Normal Anisocytosis 1+ Macrocytosis 1+ Test 11/11/20 13:21 11/11/20 16:20 11/11/20 21:27 11/12/20 06:03 POC Whole Blood Glucose 107 MG/DL (74-106) 124 MG/DL (74-106) 103 MG/DL (74-106) 122 MG/DL (74-106) Height (Feet): 5 Height (Inches): 1.00 Weight (Pounds): 92 Objective Gen: nad Pulm: ctab CV: rrr Abd: soft, nt, nd ext: no cce Timothy Lam MD Nov 12, 2020 06:47
--- NOTE | 2020-11-12 07:44 | NUR ---
NURSE HAND-OFF: Important Events on Shift: US abdomen Patient Status: Diet: NPO for US abdomen Pending Orders: US abdomen Pending Results/Labs: Pending MD notification: Latest Vital Signs: Temperature 97.9 , Pulse 87 , B/P 159 /85 , Respiratory Rate 17 , O2 SAT 98 , Nasal Cannula, O2 Flow Rate 2.0 . Vital Sign Comment: Latest Ness Fall Score: 50 Fall Risk: High Risk Safety Measures: Call light Within Reach, Bed Alarm Zone 1, Side Rails Side Rails x2, Bed position Low and Locked. Fall Precautions: Yellow Socks Yellow Gown Door Sign Patient Fall Education Report given to Ana Paula ESTEVEZ.
[2020-11-12 08:00] VITALS: BP 171/79
--- NOTE | 2020-11-12 08:00 | NUR ---
NURSE NOTES: Patient awake and alert,respirations unlabored.02 on at 2L N/C respirations unlabored.Patient has Dialysis left subclavian Permacath in place.Patient schedule for Dialysis today.Patient schedule for abdominal Ultrasound this morning breakfast held will give after Abdominal ultrasound.bed alarm on,call light within reach.
--- NOTE | 2020-11-12 09:00 | Pulmonology Progress Note ---
Subjective ROS Limited/Unobtainable: No Interval Events: due for dialysis and abd US today Constitutional: Denies: fever HEENT: Repors: no symptoms Respiratory: Reports: no symptoms Cardiovascular: Reports: no symptoms Gastrointestinal/Abdominal: Denies: nausea, vomiting, diarrhea Musculoskeletal: Denies: pain Allergies: Coded Allergies: No Known Allergies (Unverified , 09/23/20) Objective Last 24 Hour Vital Signs Date Time Temp Pulse Resp B/P (MAP) Pulse Ox O2 Delivery O2 Flow Rate FiO2 11/12/20 05:17 159/85 11/12/20 04:00 97.9 87 17 159/85 (109) 98 11/12/20 00:33 119/82 11/12/20 00:00 98.2 102 19 119/82 (94) 99 11/11/20 21:00 Nasal Cannula 2.0 11/11/20 20:00 98.2 82 17 158/73 (101) 95 11/11/20 18:20 145/73 11/11/20 16:00 98.7 80 19 145/73 (97) 98 11/11/20 16:00 98.2 77 18 149/70 (96) 98 11/11/20 13:28 148/68 11/11/20 12:00 98.2 82 18 148/68 (94) 95 11/11/20 10:47 80 151/63 11/11/20 09:00 Nasal Cannula 2.0 Intake and Output 11/11/20 11/12/20 19:00 07:00 Intake Total 720 ml 240 ml Balance 720 ml 240 ml Intake Oral 720 ml 240 ml # Bowel Movements 1 Objective 11/12 due for dialysis and abd US today, NPO 11/11 no change 11/10 s/p dialysis; 1.6L removed; saturating well on 2 lpm NC 11/09 due for dialysis today; continues to saturate well on 2 lpm NC 11/08 s/p dialysis; saturating well on 2 lpm NC 11/07/2020 s/p dialysis 11/06/2020 pt being seen by PT; saturating well on 2 lpm NC; due for dialysis today 11/05/2020 pt asleep; s/p dialysis; saturating well on 2 lpm NC 11/04/2020 pt asleep; saturating well on 2 lpm NC; NAD 11/03/2020 saturating well on 2 lpm NC; eating in bed; NAD 11/02/2020 saturating well on 1 lpm NC; s/p dialysis 11/01/2020 saturating well on 1 lpm NC 10/31/2020 patient alert; saturating well on 1 lpm NC 10/30/2020 pt asleep; saturating well on low flow oxygen 10/29/2020 pt asleep in bed; saturating well on low flow oxygen General Appearance: other - thin HEENT: normocephalic, atraumatic Respiratory: chest wall non-tender, rhonchi - bilaterally, other - dialysis catheter Cardiovascular: normal rate, regular rhythm Abdomen: soft, non tender Laboratory Tests 11/11/20 10:25: White Blood Count 8.4, Red Blood Count 3.60L, Hemoglobin 11.5L, Hematocrit 35.2L , Mean Corpuscular Volume 98, Mean Corpuscular Hemoglobin 32.0H, Mean Corpuscular Hemoglobin Concent 32.6, Red Cell Distribution Width 18.7H, Platelet Count 98L, Mean Platelet Volume 9.1, Neutrophils (%) (Auto) , Lymphocytes (%) (Auto) , Monocytes (%) (Auto) , Eosinophils (%) (Auto) , Basophils (%) (Auto) , Differential Total Cells Counted 100, Neutrophils % (Manual) 72, Lymphocytes % (Manual) 21, Monocytes % (Manual) 6, Eosinophils % (Manual) 0, Basophils % (Manual) 1, Band Neutrophils 0, Platelet Estimate DecreasedL, Platelet Morpholog y Normal, Anisocytosis 1+, Macrocytosis 1+ 11/11/20 13:21: POC Whole Blood Glucose 107H 11/11/20 16:20: POC Whole Blood Glucose 124H 11/11/20 21:27: POC Whole Blood Glucose 103 11/12/20 06:03: POC Whole Blood Glucose 122H Current Medications Medications (Trade) Dose Ordered Sig/Yeimi Route PRN Reason Start Time Stop Time Status Last Admin Dose Admin Acetaminophen (Tylenol) 650 mg Q4H PRN ORAL Temp >100.5 10/27/20 14:15 11/26/20 14:14 11/05/20 17:22 Amlodipine Besylate (Norvasc) 5 mg DAILY ORAL 11/08/20 09:00 12/08/20 08:59 11/11/20 10:47 Citalopram Hydrobromide (CeleXA) 20 mg DAILY ORAL 10/29/20 09:00 11/28/20 08:59 11/11/20 10:46 Dextrose (Dextrose 50%) 25 ml Q30M PRN IV Hypoglycemia 10/28/20 20:45 01/26/21 20:44 Dextrose (Dextrose 50%) 50 ml Q30M PRN IV Hypoglycemia 10/28/20 20:45 01/26/21 20:44 Docusate Sodium (Colace) 100 mg TWICE A DAY ORAL 10/28/20 18:00 11/27/20 17:59 11/11/20 18:20 Haloperidol Lactate (Haldol) 5 mg Q6H PRN IM Agitation 10/28/20 15:45 12/12/20 15:44 Hydralazine HCl (Apresoline) 25 mg Q4H PRN ORAL For BP over 160 systolic 11/06/20 16:15 02/04/21 16:14 Hydralazine HCl (Apresoline) 25 mg Q6HR ORAL 11/07/20 18:00 02/05/21 17:59 11/12/20 05:17 Insulin Aspart (NovoLOG) BEFORE MEALS AND HS SUBQ 10/28/20 21:00 01/26/21 20:59 11/06/20 20:19 Insulin Detemir (Levemir) 10 units Q24H SUBQ 10/29/20 20:00 01/27/21 19:59 11/11/20 21:37 Megestrol Acetate (Megace) 400 mg DAILY ORAL 10/28/20 09:00 01/26/21 08:59 11/11/20 10:46 Pantoprazole (Protonix) 40 mg EVERY 12 HOURS ORAL 10/28/20 21:00 11/27/20 20:59 11/11/20 21:28 Sevelamer Carbonate (Renvela) 800 mg THREE TIMES A DAY ORAL 10/28/20 13:00 01/26/21 12:59 11/11/20 18:20 Zinc Sulfate (Zinc Sulfate) 220 mg DAILY ORAL 11/02/20 09:00 11/12/20 08:59 11/11/20 10:48 Assessment/Plan Assessment/Plan 1. COVID-19 pneumonia. - wean down oxygen as tolerated while keeping SaO2 >92%; currently saturating well on 2 lpm NC - CXR 10/27/2020 shows multifocal infiltrate. - s/p decadron - s/p ceftriaxone and azithromycin. - Repeat COVID-19 test 10/29/2020 positive - Repeat COVID-19 test 11/11 result pending - Continue isolation. 2. Renal failure, on dialysis. - per renal 3. Congestive heart failure. - BNP >35,000 - 2D echo EF 35-40% - management per cardio 4. Right eye conjunctivitis. - improved 5. DVT ppx - D-dimer 3.08, CRP 16.1 -> 4.0 - 10/29/2020 venous ultrasound unremarkable - On SCD 6. hyperkalemia - per renal Abdominal tenderness - US of abd pending per Dr. Lam to r/o cirrhosis We will follow carefully The care of this patient was discussed with my supervising physician Time spent for this encounter was approximately 31 minutes Zbigniew Serrano Nov 12, 2020 09:00 Naman Krause MD Nov 12, 2020 15:34
[2020-11-12] MEDS: Megace 400mg/10ml Susp ORAL SCH (10:40)
[2020-11-12] MEDS: Docusate 100mg cap ORAL SCH ×2 (10:40→18:59)
[2020-11-12] MEDS: Citalopram Hydrobromide 10mg Tab ORAL SCH (10:41)
[2020-11-12 12:00] VITALS: BP 156/74
--- NOTE | 2020-11-12 12:03 | Surgery Progress Note ---
Surgery Progress Note Subjective Additional Comments plt drop pending hit labs us no n/v Objective Last 24 Hour Vital Signs Date Time Temp Pulse Resp B/P (MAP) Pulse Ox O2 Delivery O2 Flow Rate FiO2 11/12/20 05:17 159/85 11/12/20 04:00 97.9 87 17 159/85 (109) 98 11/12/20 00:33 119/82 11/12/20 00:00 98.2 102 19 119/82 (94) 99 11/11/20 21:00 Nasal Cannula 2.0 11/11/20 20:00 98.2 82 17 158/73 (101) 95 11/11/20 18:20 145/73 11/11/20 16:00 98.7 80 19 145/73 (97) 98 11/11/20 16:00 98.2 77 18 149/70 (96) 98 11/11/20 13:28 148/68 I&O Intake and Output 11/11/20 11/12/20 19:00 07:00 Intake Total 720 ml 240 ml Balance 720 ml 240 ml Intake Oral 720 ml 240 ml # Bowel Movements 1 Dressing: saturated Cardiovascular: RSR Respiratory: decreased breath sounds Abdomen: soft, flat, non-tender, present bowel sounds Extremities: no edema, no tenderness, no cyanosis Laboratory Tests Test 11/11/20 13:21 11/11/20 16:20 11/11/20 21:27 11/12/20 06:03 POC Whole Blood Glucose 107 MG/DL (74-106) H 124 MG/DL (74-106) H 103 MG/DL (74-106) 122 MG/DL (74-106) H Test 11/12/20 10:38 11/12/20 11:11 Hepatitis A IgM Antibody Pending Hepatitis B Surface Antigen Pending Hepatitis B Core IgM Antibody Pending Hepatitis C Antibody Pending HIV (1&2) Antibody Rapid Negative (NEGATIVE) POC Whole Blood Glucose Pending Plan Problems: (1) Decubitus skin ulcer Assessment & Plan: Pt presented on admission with multiple Pressure Injuries. DTPI Sacrum(L)8cm x (W)8cm. Base of wound is purpuric with surrounding non- Blanchable erythema. Darker skin tone without erythema or induration periwound. Pt complained at site of DTPI when minimally palpated. Non-Blanchable erythema without induration R Ischium(L)7cm x (W)7.5cm. L Heel is boggy with non-Blanchable erythema. R heel is Boggy with non-blanchable erythema. Tx.Plan: Apply Moisture Barrier Paste to Sacrum. Cover with Optifoam drsg. Change every 3 days and prn.. Apply Moisture Barrier Paste to R and L Ischial tuberosities. Cover each Ischium with Optifoam drsgs. Change every 3 days and prn. Apply Cavilon Skin Barrier to R and L Heels and each Malleoli. Cover each site with Optifoam drsgs. Change every 7 days and prn. Cover Bony prominences as needed with Optifoam drsgs. Reposition at least every 2 hours or as tolerated. Off-load heels with Pillow. (2) Dyspnea (3) Respiratory distress (4) Pneumonia due to COVID-19 virus Assessment & Plan: ++ on tx id and pulm input appreciated limited movement will need to be cautions to ensure not worsening decub (5) Hypoglycemia (6) End stage renal disease on dialysis (7) Transient hypotension (8) Diastolic CHF, chronic (9) C. difficile colitis (10) Diarrhea Assessment & Plan: DAILY ESTIMATED NEEDS: Needs based on ESRD on HD 42kg 30-40 kcals/kg 2527-3996 total kcals 1.25-1.8 g protein/kg 53-76 g total protein Fluid per MD, on HD NUTRITION DIAGNOSIS: Increased kcal and pro needs r/t renal dysfunction, wound healing as evidenced by pt w/ ESRD on HD, admitted w/ wounds, including sacral DTPI. CURRENT DIET:Renal diet PO DIET RECOMMENDATIONS: Maintain renal diet/ texture per MARKETING STRATEGIST ADDITIONAL RECOMMENDATIONS: 1) Daily wts, calibrated bed scale 2) Rec MARKETING STRATEGIST eval for appropriate texture 3) Add NEPRO TID w/ meals (425 kcal/ 19g pro per pack) 4) Monitor for hypoglycemia w/ variable PO 5) Wound healing: Nephrovite x 1, ZnSO4 220mg QD x 10 days Abdirahman BID as tolerated (11) ESRD (end stage renal disease) (12) Altered mental status (13) Pneumonia Kurt Flores Nov 12, 2020 12:03
--- NOTE | 2020-11-12 12:53 | Infectious Diseases Prog Note ---
Assessment/Plan Assessment/Plan A 1. COVID-19 pneumonia s/p ivermectin 2. Renal failure, on dialysis. 3. Congestive heart failure. 4. Right eye conjunctivitis 5. hypertension 6. Hypoxemia P 1. Finished Decadron course 2. continue isolation Subjective ROS Limited/Unobtainable: Yes Constitutional: Reports: no symptoms Respiratory: Reports: no symptoms Gastrointestinal/Abdominal: Reports: no symptoms Genitourinary: Reports: no symptoms Allergies: Coded Allergies: No Known Allergies (Unverified , 09/23/20) Objective Last 24 Hour Vital Signs Date Time Temp Pulse Resp B/P (MAP) Pulse Ox O2 Delivery O2 Flow Rate FiO2 11/12/20 05:17 159/85 11/12/20 04:00 97.9 87 17 159/85 (109) 98 11/12/20 00:33 119/82 11/12/20 00:00 98.2 102 19 119/82 (94) 99 11/11/20 21:00 Nasal Cannula 2.0 11/11/20 20:00 98.2 82 17 158/73 (101) 95 11/11/20 18:20 145/73 11/11/20 16:00 98.7 80 19 145/73 (97) 98 11/11/20 16:00 98.2 77 18 149/70 (96) 98 11/11/20 13:28 148/68 Height (Feet): 5 Height (Inches): 1.00 Weight (Pounds): 92 General Appearance: no acute distress HEENT: mucous membranes moist Respiratory/Chest: lungs clear Cardiovascular: normal rate Abdomen: soft, non tender Extremities: no edema Neurologic/Psychiatric: alert, responsive Laboratory Tests Test 11/11/20 13:21 11/11/20 16:20 11/11/20 21:27 11/12/20 06:03 POC Whole Blood Glucose 107 MG/DL (74-106) H 124 MG/DL (74-106) H 103 MG/DL (74-106) 122 MG/DL (74-106) H Test 11/12/20 10:38 11/12/20 11:11 Hepatitis A IgM Antibody Pending Hepatitis B Surface Antigen Pending Hepatitis B Core IgM Antibody Pending Hepatitis C Antibody Pending HIV (1&2) Antibody Rapid Negative (NEGATIVE) POC Whole Blood Glucose Pending Current Medications Medications (Trade) Dose Ordered Sig/Yeimi Route PRN Reason Start Time Stop Time Status Last Admin Dose Admin Acetaminophen (Tylenol) 650 mg Q4H PRN ORAL Temp >100.5 10/27/20 14:15 11/26/20 14:14 11/05/20 17:22 Amlodipine Besylate (Norvasc) 5 mg DAILY ORAL 11/08/20 09:00 12/08/20 08:59 11/11/20 10:47 Citalopram Hydrobromide (CeleXA) 20 mg DAILY ORAL 10/29/20 09:00 11/28/20 08:59 11/12/20 10:41 Dextrose (Dextrose 50%) 25 ml Q30M PRN IV Hypoglycemia 10/28/20 20:45 01/26/21 20:44 Dextrose (Dextrose 50%) 50 ml Q30M PRN IV Hypoglycemia 10/28/20 20:45 01/26/21 20:44 Docusate Sodium (Colace) 100 mg TWICE A DAY ORAL 10/28/20 18:00 11/27/20 17:59 11/12/20 10:40 Haloperidol Lactate (Haldol) 5 mg Q6H PRN IM Agitation 10/28/20 15:45 12/12/20 15:44 Hydralazine HCl (Apresoline) 25 mg Q4H PRN ORAL For BP over 160 systolic 11/06/20 16:15 02/04/21 16:14 Hydralazine HCl (Apresoline) 25 mg Q6HR ORAL 11/07/20 18:00 02/05/21 17:59 11/12/20 05:17 Insulin Aspart (NovoLOG) BEFORE MEALS AND HS SUBQ 10/28/20 21:00 01/26/21 20:59 11/06/20 20:19 Insulin Detemir (Levemir) 10 units Q24H SUBQ 10/29/20 20:00 01/27/21 19:59 11/11/20 21:37 Megestrol Acetate (Megace) 400 mg DAILY ORAL 10/28/20 09:00 01/26/21 08:59 11/12/20 10:40 Pantoprazole (Protonix) 40 mg EVERY 12 HOURS ORAL 10/28/20 21:00 11/27/20 20:59 12/22/20 10:40 Sevelamer Carbonate (Renvela) 800 mg THREE TIMES A DAY ORAL 10/28/20 13:00 01/26/21 12:59 11/12/20 10:44 Aryan Darby MD Nov 12, 2020 12:53
--- NOTE | 2020-11-12 13:30 | Nephrology Progress Note ---
Assessment/Plan Problem List: (1) End stage renal disease on dialysis (2) C. difficile colitis (3) Transient hypotension (4) Diastolic CHF, chronic Assessment 75-year-old female presents with respiratory distress and COVID-19 infection Patient has end-stage renal disease and last dialyzed 4 days ago Patient presents with high potassium History of C. difficile colitis History of diabetes mellitus History of hypertension, presents with transient hypotension History of cardiomyopathy and diastolic CHF Plan November 12: Due for dialysis today. No chemistry panel done today. Blood pressure stable. Continue per current management. November 11: Last dialysis November 09. No labs drawn today yet. We will order dialysis tomorrow. November 10: Patient was dialyzed yesterday. Potassium now within normal limit. Blood pressure stable. Continue same. November 09: Due for dialysis today. Labs reviewed. Potassium 5.6 which will be corrected after dialysis. Will check repeat lab tomorrow. November 08: Dialyzed yesterday. Labs reviewed. Continue per consultants. Due for dialysis tomorrow. November 07: Due for dialysis today. Blood pressure medication adjusted. Will check lab tomorrow. November 06: Labs reviewed. Medication list reviewed. Will order dialysis for tomorrow. Continue per consultants. Hydralazine 25 mg as needed for high blood pressure ordered. November 05: Discussed with dialysis nurse. Patient was dialyzed late last night. However today's lab results suggestive of high BUN and creatinine. Serum potassium elevated but the repeat is normal. Will hold the Kayexalate. Will attempt another dialysis and order post BUN and creatinine. Reevaluation on November 05 at 3 PM: Stat BMP done as it appears this morning's lab was prior to dialysis even though it was marked 6 AM. The stat dialysis orders will be canceled based on new lab results. Will arrange for next dialysis on November 07 unless she needs it earlier. November 04: Patient due for dialysis today. Blood pressure stable. No UF is scheduled during dialysis. Check labs tomorrow. No can panel drawn today. November 03: Patient was dialyzed yesterday. Labs reviewed. Blood pressure more stable. Due for dialysis tomorrow. No ultrafiltration is ordered. November 02: Dialyzed today. Blood pressure 95 systolic. Parameters for BP medications. Patient asymptomatic. Albumin 25% 100 cc 1 bolus dose ordered. Continue rest. Discussed with RN. November 01: Dialyzed yesterday. Labs reviewed. Medication list reviewed. Blood pressure medication adjusted. Hemodialysis tomorrow. October 31: Due for dialysis today. No labs drawn today. Continue per consultants. Will check can panel tomorrow. Medication list reviewed. Blood pressure stable. October 30: Last dialyzed October 29. Due for dialysis October 31. Continue per consultants. October 29: Patient dialyzed last evening of October 27. Serum creatinine and electrolyte much improved Continue per current treatment plan Per orders Next dialysis today October 29 Check labs in a.m. Subjective ROS Limited/Unobtainable: No Constitutional: Reports: malaise, weakness Objective Objective Last 24 Hour Vital Signs Date Time Temp Pulse Resp B/P (MAP) Pulse Ox O2 Delivery O2 Flow Rate FiO2 11/12/20 05:17 159/85 11/12/20 04:00 97.9 87 17 159/85 (109) 98 11/12/20 00:33 119/82 11/12/20 00:00 98.2 102 19 119/82 (94) 99 11/11/20 21:00 Nasal Cannula 2.0 11/11/20 20:00 98.2 82 17 158/73 (101) 95 11/11/20 18:20 145/73 11/11/20 16:00 98.7 80 19 145/73 (97) 98 11/11/20 16:00 98.2 77 18 149/70 (96) 98 Intake and Output 11/11/20 11/12/20 19:00 07:00 Intake Total 720 ml 240 ml Balance 720 ml 240 ml Intake Oral 720 ml 240 ml # Bowel Movements 1 Current Medications Medications (Trade) Dose Ordered Sig/Yeimi Route PRN Reason Start Time Stop Time Status Last Admin Dose Admin Acetaminophen (Tylenol) 650 mg Q4H PRN ORAL Temp >100.5 10/27/20 14:15 11/26/20 14:14 11/05/20 17:22 Amlodipine Besylate (Norvasc) 5 mg DAILY ORAL 11/08/20 09:00 12/08/20 08:59 11/11/20 10:47 Citalopram Hydrobromide (CeleXA) 20 mg DAILY ORAL 10/29/20 09:00 11/28/20 08:59 11/12/20 10:41 Dextrose (Dextrose 50%) 25 ml Q30M PRN IV Hypoglycemia 10/28/20 20:45 01/26/21 20:44 Dextrose (Dextrose 50%) 50 ml Q30M PRN IV Hypoglycemia 10/28/20 20:45 01/26/21 20:44 Docusate Sodium (Colace) 100 mg TWICE A DAY ORAL 10/28/20 18:00 11/27/20 17:59 11/12/20 10:40 Haloperidol Lactate (Haldol) 5 mg Q6H PRN IM Agitation 10/28/20 15:45 12/12/20 15:44 Hydralazine HCl (Apresoline) 25 mg Q4H PRN ORAL For BP over 160 systolic 11/06/20 16:15 02/04/21 16:14 Hydralazine HCl (Apresoline) 25 mg Q6HR ORAL 11/07/20 18:00 02/05/21 17:59 11/12/20 05:17 Insulin Aspart (NovoLOG) BEFORE MEALS AND HS SUBQ 10/28/20 21:00 01/26/21 20:59 11/06/20 20:19 Insulin Detemir (Levemir) 10 units Q24H SUBQ 10/29/20 20:00 01/27/21 19:59 11/11/20 21:37 Megestrol Acetate (Megace) 400 mg DAILY ORAL 10/28/20 09:00 01/26/21 08:59 11/12/20 10:40 Pantoprazole (Protonix) 40 mg EVERY 12 HOURS ORAL 10/28/20 21:00 11/27/20 20:59 11/12/20 10:40 Sevelamer Carbonate (Renvela) 800 mg THREE TIMES A DAY ORAL 10/28/20 13:00 01/26/21 12:59 11/12/20 10:44 Laboratory Tests 11/11/20 16:20: POC Whole Blood Glucose 124H 11/11/20 21:27: POC Whole Blood Glucose 103 11/12/20 06:03: POC Whole Blood Glucose 122H 11/12/20 10:38: Hepatitis A IgM Antibody [Pending], Hepatitis B Surface Antigen [Pending], Hepatitis B Core IgM Antibody [Pending], Hepatitis C Antibody [Pending], HIV (1&2) Antibody Rapid Negative 11/12/20 11:11: POC Whole Blood Glucose [Pending] Height (Feet): 5 Height (Inches): 1.00 Weight (Pounds): 92 General Appearance: no apparent distress, lethargic Cardiovascular: tachycardia Respiratory/Chest: decreased breath sounds Abdomen: distended Objective No change Chris Puckett MD Nov 12, 2020 13:30
--- NOTE | 2020-11-12 13:36 | Diagnostic Imaging Report ---
Indication: abdominal tenderness Technique: Leach-scale and duplex images of the upper abdomen were obtained Comparison: none Findings: Gallbladder demonstrates mild wall thickening, gallbladder wall measuring up to 4 mm in diameter. No gallstones. Sonographic Cornelius's sign is negative. Common bile duct measures 3 mm in diameter. No intrahepatic biliary ductal dilatation. Liver demonstrates coarse echogenicity, no focal abnormality. Portal vein and hepatic veins are patent. Pancreas is unremarkable except for a prominent ectatic pancreatic duct. Spleen is unremarkable. Left kidney measures 6.2 cm in length. Right kidney measures 6.2 cm length. Both kidneys demonstrate normal echogenicity. There is no hydronephrosis. No focal abnormality . Non-aneurysmal abdominal aorta . Large left pleural effusion is incidentally noted and a small right pleural effusion as well Impression: Coarsened liver echogenicity, nonspecific but could indicate hepatocellular disease Borderline thickened gallbladder wall, without gallstones. May be due to hemodynamic derangements, but the possibility of acute acalculous cholecystitis should also be considered. Consider hepatobiliary nuclear scan for further evaluation if there is high clinical suspicion Negative for dilated bile ducts Nonspecific ectasia of the pancreatic duct Large left pleural effusion and small right pleural effusion
[2020-11-12 16:00] VITALS: BP 139/78
--- NOTE | 2020-11-12 17:37 | Cardiology Progress Note ---
Assessment/Plan Status Narrative 1. COVID-19 viral PNA low grade fever, improved antiviral tx per ID 2. HFrEF, acute on chronic systolic on diastolic HF with EF 35-40% BNP severely elevated Fluid balance with HD Troponin negative Good O2 perfusion 3. ESRD on HD Aneuric Microfiltration for fluid balance 4. HTN - under better control 5. Mitral regurgitation - mod-severe contributing to severity of HF 6. possible ASD with L to R shunt 7. Sinus tachycardia 2/2 viral PNA and fever rate controlled, in SR 8. Anemia of chronic disease Fluid balance with HD, recommend microfiltration. SBP elevated today, BNP severely elevated. Tx for viral PNA per ID. In SR, rate controlled. Subjective ROS Limited/Unobtainable: Yes Cardiovascular: Reports: edema Respiratory: Reports: shortness of breath Gastrointestinal/Abdominal: Reports: poor appetite Genitourinary: Reports: no symptoms Subjective SBP and HR in normal territory, good O2 perfusion Objective Last 24 Hour Vital Signs Date Time Temp Pulse Resp B/P (MAP) Pulse Ox O2 Delivery O2 Flow Rate FiO2 11/12/20 12:00 97.5 78 18 156/74 (101) 98 11/12/20 09:00 Nasal Cannula 2.0 11/12/20 08:00 98.8 87 17 171/79 (109) 98 11/12/20 05:17 159/85 11/12/20 04:00 97.9 87 17 159/85 (109) 98 11/12/20 00:33 119/82 11/12/20 00:00 98.2 102 19 119/82 (94) 99 11/11/20 21:00 Nasal Cannula 2.0 11/11/20 20:00 98.2 82 17 158/73 (101) 95 11/11/20 18:20 145/73 General Appearance: no apparent distress Respiratory/Chest: no respiratory distress, no accessory muscle use 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
--- NOTE | 2020-11-12 18:30 | NUR ---
NURSE NOTES: Patient resting,patient received Dialysis as ordered.left subclavian permacath remains intact .Bed alarm on,call light within reach.
--- NOTE | 2020-11-12 19:35 | NUR ---
NURSE HAND-OFF: Pierre ESTEVEZ Important Events on Shift:[Dialysis done today] Patient Status: [] Diet: Renal] Pending Orders: [] Pending Results/Labs:[HIV antibody.hepatitis panel] Pending MD notification:[] Latest Vital Signs: Temperature 98.1 , Pulse 80 , B/P 115 /58 , Respiratory Rate 18 , O2 SAT 97 , Nasal Cannula, O2 Flow Rate 2.0 . Vital Sign Comment: [] Latest Ness Fall Score: 50 Fall Risk: High Risk Safety Measures: Call light Within Reach, Bed Alarm Zone 1, Side Rails Side Rails x2, Bed position Low and Locked. Fall Precautions: Yellow Socks Yellow Gown Door Sign y Patient Fall Education Report given to [].
[2020-11-12 20:00] VITALS: BP 139/69
[2020-11-12] MEDS: Levemir Flexpen SUBQ SCH (20:59)
[2020-11-13] VITALS: BP 137/69
[2020-11-13] MEDS: HydrALAZINE 25mg tab ORAL SCH ×4 (00:14→17:22)
[2020-11-13 04:00] VITALS: BP 149/78
[2020-11-13] MEDS: NovoLOG Insulin Flexpen SUBQ SCH ×4 (06:30→20:46)
--- NOTE | 2020-11-13 06:44 | Hematology/Onc Progress Note ---
Assessment/Plan Assessment/Plan # Anemia of chronic disease due to underlying chronic medical issues, multifactorial v Gi bleed --> Anemia workup has been ordered, rule out gi bleed --> No evidence of hemolysis is noted, peripheral smear has been reviewed. --> Hgb goal >7. Transfuse prn --> Epogen or iron at this time is not particularly indicated --> Medications have been reviewed --> low threshold for gi evaluation in case has occult + --> hgb 11-->9.6-->10.4 # Thrombocytopenia due to Covid pna++++++++ --> cont isolation -> completed steriods --> per pulm recs --> plt 160-->98 --> hep and hiv are neg # chf diastolic acute -> cards aware # Esrd on hd --> per renal # failure of thrive # dementia # dm poory controlled due to steroids Appreciate consultation and dw PCP Subjective Constitutional: Denies: no symptoms, chills, fever, malaise, weakness, other HEENT: Denies: no symptoms, eye pain, blurred vision, tearing, double vision, ear pain, ear discharge, nose pain, nose congestion, throat pain, throat swelling, mouth pain, mouth swelling, other Cardiovascular: Denies: no symptoms, chest pain, edema, irregular heart rate, lightheadedness, palpitations, syncope, other Gastrointestinal/Abdominal: Denies: no symptoms, abdomen distended, abdominal pain, black stools, tarry stools, blood in stool, constipated, diarrhea, difficulty swallowing, nausea, poor appetite, poor fluid intake, rectal bleeding, vomiting, other Genitourinary: Denies: no symptoms, burning, discharge, frequency, flank pain, hematuria, incontinence, pain, urgency, other Neurologic/Psychiatric: Denies: no symptoms, anxiety, depressed, emotional problems, headache, numbness, paresthesia, pre-existing deficit, seizure, tingling, tremors, weakness, other Hematologic/Lymphatic: Denies: no symptoms, anemia, easy bleeding, easy bruising, adenopathy, other Allergies: Coded Allergies: No Known Allergies (Unverified , 09/23/20) Subjective 11/04 labs are noted, no bleeding, meds reviewed, on steriods, seen by pulm 11/05 hd done yesterday, no bleeding, cbc is pending 11/06 awake, alert, labs are pending, reviewed cosmetic sales consultant recs 11/07 meds reviewed, labs noted, no bleeding 11/08 labs are noted, no bleeding, meds are reviewed 11/10 meds noted, no bleeding, no f/c, no bleeding 11/11 hgb 10.1 yest, pending for today cbc/bmp 11/12 is on nc, no bleeding, plt lower ordered hep, hiv us abd 11/13 is on 2lnc, no bleeding, meds reviewed, labs noted Objective Objective Current Medications Medications (Trade) Dose Ordered Sig/Yeimi Route PRN Reason Start Time Stop Time Status Last Admin Dose Admin Acetaminophen (Tylenol) 650 mg Q4H PRN ORAL Temp >100.5 10/27/20 14:15 11/26/20 14:14 11/05/20 17:22 Amlodipine Besylate (Norvasc) 5 mg DAILY ORAL 11/08/20 09:00 12/08/20 08:59 11/11/20 10:47 Citalopram Hydrobromide (CeleXA) 20 mg DAILY ORAL 10/29/20 09:00 11/28/20 08:59 11/12/20 10:41 Dextrose (Dextrose 50%) 25 ml Q30M PRN IV Hypoglycemia 10/28/20 20:45 01/26/21 20:44 Dextrose (Dextrose 50%) 50 ml Q30M PRN IV Hypoglycemia 10/28/20 20:45 01/26/21 20:44 Docusate Sodium (Colace) 100 mg TWICE A DAY ORAL 10/28/20 18:00 11/27/20 17:59 11/12/20 18:59 Haloperidol Lactate (Haldol) 5 mg Q6H PRN IM Agitation 10/28/20 15:45 12/12/20 15:44 Hydralazine HCl (Apresoline) 25 mg Q4H PRN ORAL For BP over 160 systolic 11/06/20 16:15 02/04/21 16:14 Hydralazine HCl (Apresoline) 25 mg Q6HR ORAL 11/07/20 18:00 02/05/21 17:59 11/13/20 06:10 Insulin Aspart (NovoLOG) BEFORE MEALS AND HS SUBQ 10/28/20 21:00 01/26/21 20:59 12/22/20 21:01 Insulin Detemir (Levemir) 10 units Q24H SUBQ 10/29/20 20:00 01/27/21 19:59 11/12/20 20:59 Megestrol Acetate (Megace) 400 mg DAILY ORAL 10/28/20 09:00 01/26/21 08:59 11/12/20 10:40 Pantoprazole (Protonix) 40 mg EVERY 12 HOURS ORAL 10/28/20 21:00 11/27/20 20:59 11/12/20 20:58 Sevelamer Carbonate (Renvela) 800 mg THREE TIMES A DAY ORAL 10/28/20 13:00 01/26/21 12:59 11/12/20 18:59 Last 24 Hour Vital Signs Date Time Temp Pulse Resp B/P (MAP) Pulse Ox O2 Delivery O2 Flow Rate FiO2 11/13/20 06:10 149/78 11/13/20 04:00 97.6 80 20 149/78 (101) 99 11/13/20 00:14 137/69 11/13/20 00:00 98.0 82 20 137/69 (91) 98 11/12/20 21:00 Nasal Cannula 2.0 11/12/20 20:00 97.7 99 22 139/69 (92) 98 11/12/20 18:00 115/58 11/12/20 16:00 98.1 80 18 139/78 (98) 97 11/12/20 12:00 97.5 78 18 156/74 (101) 98 11/12/20 09:00 Nasal Cannula 2.0 11/12/20 08:00 98.8 87 17 171/79 (109) 98 11/12/20 05:17 159/85 11/12/20 04:00 97.9 87 17 159/85 (109) 98 11/12/20 00:33 119/82 11/12/20 00:00 98.2 102 19 119/82 (94) 99 11/11/20 21:00 Nasal Cannula 2.0 11/11/20 20:00 98.2 82 17 158/73 (101) 95 11/11/20 18:20 145/73 11/11/20 16:00 98.7 80 19 145/73 (97) 98 11/11/20 16:00 98.2 77 18 149/70 (96) 98 11/11/20 13:28 148/68 11/11/20 12:00 98.2 82 18 148/68 (94) 95 11/11/20 10:47 80 151/63 11/11/20 09:00 Nasal Cannula 2.0 11/11/20 08:00 98.2 80 19 151/63 (92) 99 Intake and Output 11/12/20 11/13/20 19:00 07:00 Output Total 2000 ml Balance -2000 ml Hemodialysis UF 2000 ml Labs Test 11/10/20 07:20 11/10/20 11:45 11/10/20 14:53 11/10/20 21:45 White Blood Count 7.4 K/UL (4.8-10.8) Red Blood Count 3.17 M/UL (4.20-5.40) Hemoglobin 10.1 G/DL (12.0-16.0) Hematocrit 31.5 % (37.0-47.0) Mean Corpuscular Volume 99 FL (80-99) Mean Corpuscular Hemoglobin 31.8 PG (27.0-31.0) Mean Corpuscular Hemoglobin Concent 32.0 G/DL (32.0-36.0) Red Cell Distribution Width 18.2 % (11.6-14.8) Platelet Count 177 K/UL (150-450) Mean Platelet Volume 8.9 FL (6.5-10.1) Neutrophils (%) (Auto) 72.0 % (45.0-75.0) Lymphocytes (%) (Auto) 15.2 % (20.0-45.0) Monocytes (%) (Auto) 10.7 % (1.0-10.0) Eosinophils (%) (Auto) 1.2 % (0.0-3.0) Basophils (%) (Auto) 0.8 % (0.0-2.0) Sodium Level 139 MMOL/L (136-145) Potassium Level 4.0 MMOL/L (3.5-5.1) Chloride Level 100 MMOL/L (98-107) Carbon Dioxide Level 33 MMOL/L (21-32) Anion Gap 6 mmol/L (5-15) Blood Urea Nitrogen 49 mg/dL (7-18) Creatinine 4.3 MG/DL (0.55-1.30) Estimat Glomerular Filtration Rate 10.0 mL/min (>60) Glucose Level 83 MG/DL (74-106) Calcium Level 8.2 MG/DL (8.5-10.1) Phosphorus Level 4.6 MG/DL (2.5-4.9) Magnesium Level 1.9 MG/DL (1.8-2.4) Total Bilirubin 0.4 MG/DL (0.2-1.0) Aspartate Amino Transf (AST/SGOT) 16 U/L (15-37) Alanine Aminotransferase (ALT/SGPT) 12 U/L (12-78) Alkaline Phosphatase 80 U/L (46-116) Total Protein 7.0 G/DL (6.4-8.2) Albumin 2.5 G/DL (3.4-5.0) Globulin 4.5 g/dL Albumin/Globulin Ratio 0.6 (1.0-2.7) Test 11/11/20 05:04 11/11/20 05:07 11/11/20 10:25 11/11/20 13:21 POC Whole Blood Glucose 55 MG/DL (74-106) 107 MG/DL (74-106) White Blood Count 8.4 K/UL (4.8-10.8) Red Blood Count 3.60 M/UL (4.20-5.40) Hemoglobin 11.5 G/DL (12.0-16.0) Hematocrit 35.2 % (37.0-47.0) Mean Corpuscular Volume 98 FL (80-99) Mean Corpuscular Hemoglobin 32.0 PG (27.0-31.0) Mean Corpuscular Hemoglobin Concent 32.6 G/DL (32.0-36.0) Red Cell Distribution Width 18.7 % (11.6-14.8) Platelet Count 98 K/UL (150-450) Mean Platelet Volume 9.1 FL (6.5-10.1) Neutrophils (%) (Auto) % (45.0-75.0) Lymphocytes (%) (Auto) % (20.0-45.0) Monocytes (%) (Auto) % (1.0-10.0) Eosinophils (%) (Auto) % (0.0-3.0) Basophils (%) (Auto) % (0.0-2.0) Differential Total Cells Counted 100 Neutrophils % (Manual) 72 % (45-75) Lymphocytes % (Manual) 21 % (20-45) Monocytes % (Manual) 6 % (1-10) Eosinophils % (Manual) 0 % (0-3) Basophils % (Manual) 1 % (0-2) Band Neutrophils 0 % (0-8) Platelet Estimate Decreased Platelet Morphology Normal Anisocytosis 1+ Macrocytosis 1+ Test 11/11/20 16:20 11/11/20 21:27 11/12/20 06:03 11/12/20 10:38 POC Whole Blood Glucose 124 MG/DL (74-106) 103 MG/DL (74-106) 122 MG/DL (74-106) HIV (1&2) Antibody Rapid Negative (NEGATIVE) Test 11/12/20 11:11 11/12/20 17:44 11/12/20 20:31 11/13/20 06:12 POC Whole Blood Glucose 196 MG/DL (74-106) 65 MG/DL (74-106) Test 11/13/20 06:14 Height (Feet): 5 Height (Inches): 1.00 Weight (Pounds): 92 Objective Gen: nad Pulm: ctab CV: rrr Abd: soft, nt, nd ext: no cce Timothy Lam MD Nov 13, 2020 06:44
[2020-11-13 06:49] LABS: EOSINOPHILS % (AUTO) 1.7 % (0.0-3.0); HEMATOCRIT 30.8 % (37.0-47.0); HEMOGLOBIN 10.2 G/DL (12.0-16.0); LYMPHOCYTES % (AUTO) 14.8 % (20.0-45.0); MEAN CORPUSCULAR VOLUME 95 FL (80-99); MONOCYTES % (AUTO) 12.6 % (1.0-10.0); NEUTROPHILS % (AUTO) 69.9 % (45.0-75.0); PLATELET COUNT 160 K/UL (150-450); RED BLOOD COUNT 3.26 M/UL (4.20-5.40); RED CELL DISTRIBUTION WIDTH 18.3 % (11.6-14.8); WHITE BLOOD COUNT 7.8 K/UL (4.8-10.8)
--- NOTE | 2020-11-13 06:55 | NUR ---
NURSE NOTES: Call and left message to Dr. Swanson regarding blood sugar 65 this morning.
[2020-11-13 07:06] LABS: ALBUMIN 2.5 G/DL (3.4-5.0); ALBUMIN/GLOBULIN RATIO 0.6 (1.0-2.7); BILIRUBIN,TOTAL 0.4 MG/DL (0.2-1.0); CALCIUM 8.7 MG/DL (8.5-10.1); CREATININE 4.5 MG/DL (0.55-1.30); PHOSPHORUS 4.5 MG/DL (2.5-4.9); POTASSIUM 4.3 MMOL/L (3.5-5.1)
--- NOTE | 2020-11-13 07:19 | NUR ---
NURSE HAND-OFF: Important Events on Shift: Blood sugar 65, juice given Patient Status: Diet: renal Pending Orders: Pending Results/Labs: Pending MD notification: Latest Vital Signs: Temperature 97.6 , Pulse 80 , B/P 149 /78 , Respiratory Rate 20 , O2 SAT 99 , Nasal Cannula, O2 Flow Rate 2.0 . Vital Sign Comment: Latest Ness Fall Score: 50 Fall Risk: High Risk Safety Measures: Call light Within Reach, Bed Alarm Zone 1, Side Rails Side Rails x2, Bed position Low and Locked. Fall Precautions: Yellow Socks Yellow Gown Door Sign Patient Fall Education Report given to Lucian ESTEVEZ.
--- NOTE | 2020-11-13 07:20 | NUR ---
NURSE NOTES: Received report from ZENAIDA Meléndez. Patient seen in bed AAOx1, eating breakfast at this time. tolerates meals well. no aspiration and coughing noted while eating. Patient on O2@ 2l/min via NC, breathing is even and unlabored with no SOB noted at this time. HOB elevated. no acute distress noted at this time. Left AV fistula inplace. no redness and tenderness noted on site. Bed is locked and placed in lowest position with bed alarm on. call light within reach. will continue to monitor
[2020-11-13 08:00] VITALS: BP 149/67
[2020-11-13] MEDS: Docusate 100mg cap ORAL SCH ×2 (09:20→17:22)
[2020-11-13] MEDS: Citalopram Hydrobromide 10mg Tab ORAL SCH (09:20)
[2020-11-13] MEDS: Megace 400mg/10ml Susp ORAL SCH (09:21)
--- NOTE | 2020-11-13 09:24 | Pulmonology Progress Note ---
Subjective ROS Limited/Unobtainable: Yes Interval Events: s/p dialysis, 2 L removed Constitutional: Denies: fever HEENT: Repors: no symptoms Respiratory: Reports: no symptoms Cardiovascular: Reports: no symptoms Gastrointestinal/Abdominal: Denies: nausea, vomiting, diarrhea Musculoskeletal: Denies: pain Allergies: Coded Allergies: No Known Allergies (Unverified , 09/23/20) Objective Last 24 Hour Vital Signs Date Time Temp Pulse Resp B/P (MAP) Pulse Ox O2 Delivery O2 Flow Rate FiO2 11/13/20 06:10 149/78 11/13/20 04:00 97.6 80 20 149/78 (101) 99 11/13/20 00:14 137/69 11/13/20 00:00 98.0 82 20 137/69 (91) 98 11/12/20 21:00 Nasal Cannula 2.0 11/12/20 20:00 97.7 99 22 139/69 (92) 98 11/12/20 18:00 115/58 11/12/20 16:00 98.1 80 18 139/78 (98) 97 11/12/20 12:00 97.5 78 18 156/74 (101) 98 Intake and Output 11/12/20 11/13/20 19:00 07:00 Intake Total 240 ml Output Total 2000 ml Balance -2000 ml 240 ml Intake Oral 240 ml Hemodialysis UF 2000 ml Objective 11/13 s/p dialysis, 2L removed; saturating well on 2L NC 11/12 due for dialysis and abd US today, NPO 11/11 no change 11/10 s/p dialysis; 1.6L removed; saturating well on 2 lpm NC 11/09 due for dialysis today; continues to saturate well on 2 lpm NC 11/08 s/p dialysis; saturating well on 2 lpm NC 11/07/2020 s/p dialysis 11/06/2020 pt being seen by PT; saturating well on 2 lpm NC; due for dialysis today 11/05/2020 pt asleep; s/p dialysis; saturating well on 2 lpm NC 11/04/2020 pt asleep; saturating well on 2 lpm NC; NAD 11/03/2020 saturating well on 2 lpm NC; eating in bed; NAD 11/02/2020 saturating well on 1 lpm NC; s/p dialysis 11/01/2020 saturating well on 1 lpm NC 10/31/2020 patient alert; saturating well on 1 lpm NC 10/30/2020 pt asleep; saturating well on low flow oxygen 10/29/2020 pt asleep in bed; saturating well on low flow oxygen General Appearance: other - thin HEENT: normocephalic, atraumatic Respiratory: chest wall non-tender, rhonchi - bilaterally, other - dialysis catheter Cardiovascular: normal rate, regular rhythm Abdomen: soft, non tender Microbiology Date/Time Source Procedure Growth Status 11/11/20 14:32 Nasopharynx Coronavirus COVID-19 PCR ([facility]) - Final Complete Laboratory Tests 11/12/20 10:38: Hepatitis A IgM Antibody Negative, Hepatitis B Surface Antigen Negative, Hepatitis B Core IgM Antibody Negative, Hepatitis C Antibody 0.1, HIV (1&2) Antibody Rapid Negative 11/12/20 11:11: POC Whole Blood Glucose [Pending] 11/12/20 17:44: POC Whole Blood Glucose [Pending] 11/12/20 20:31: POC Whole Blood Glucose 196H 11/13/20 06:12: POC Whole Blood Glucose 65L 11/13/20 06:14: White Blood Count 7.8, Red Blood Count 3.26L, Hemoglobin 10.2L, Hematocrit 30.8L , Mean Corpuscular Volume 95, Mean Corpuscular Hemoglobin 31.4H, Mean Corpuscular Hemoglobin Concent 33.2, Red Cell Distribution Width 18.3H, Platelet Count 160, Mean Platelet Volume 8.3, Neutrophils (%) (Auto) 69.9, Lymphocytes (%) (Auto) 14.8L, Monocytes (%) (Auto) 12.6H, Eosinophils (%) (Auto) 1.7, Basophils (%) (Auto) 1.0, Sodium Level 139, Potassium Level 4.3, Chloride Level 103, Carbon Dioxide Level 32, Anion Gap 4L, Blood Urea Nitrogen 44H, Creatinine 4.5H, Estimat Glomerular Filtration Rate 9.5, Glucose Level 68L, Calcium Level 8.7, Phosphorus Level 4.5, Magnesium Level 2.0, Total Bilirubin 0.4, Aspartate Amino Transf (AST/SGOT) 16, Alanine Aminotransferase (ALT/SGPT) 9L, Alkaline Phosphatase 79, Total Protein 6.9, Albumin 2.5L, Globulin 4.4, Albumin/Globulin Ratio 0.6L 11/13/20 06:48: POC Whole Blood Glucose 101 Current Medications Medications (Trade) Dose Ordered Sig/Yeimi Route PRN Reason Start Time Stop Time Status Last Admin Dose Admin Acetaminophen (Tylenol) 650 mg Q4H PRN ORAL Temp >100.5 10/27/20 14:15 11/26/20 14:14 11/05/20 17:22 Amlodipine Besylate (Norvasc) 5 mg DAILY ORAL 11/08/20 09:00 12/08/20 08:59 11/11/20 10:47 Citalopram Hydrobromide (CeleXA) 20 mg DAILY ORAL 10/29/20 09:00 11/28/20 08:59 11/12/20 10:41 Dextrose (Dextrose 50%) 25 ml Q30M PRN IV Hypoglycemia 10/28/20 20:45 01/26/21 20:44 Dextrose (Dextrose 50%) 50 ml Q30M PRN IV Hypoglycemia 10/28/20 20:45 01/26/21 20:44 Docusate Sodium (Colace) 100 mg TWICE A DAY ORAL 10/28/20 18:00 11/27/20 17:59 11/12/20 18:59 Haloperidol Lactate (Haldol) 5 mg Q6H PRN IM Agitation 10/28/20 15:45 12/12/20 15:44 Hydralazine HCl (Apresoline) 25 mg Q4H PRN ORAL For BP over 160 systolic 11/06/20 16:15 02/04/21 16:14 Hydralazine HCl (Apresoline) 25 mg Q6HR ORAL 11/07/20 18:00 02/05/21 17:59 11/13/20 06:10 Insulin Aspart (NovoLOG) BEFORE MEALS AND HS SUBQ 10/28/20 21:00 01/26/21 20:59 11/12/20 21:01 Insulin Detemir (Levemir) 10 units Q24H SUBQ 10/29/20 20:00 01/27/21 19:59 11/12/20 20:59 Megestrol Acetate (Megace) 400 mg DAILY ORAL 10/28/20 09:00 01/26/21 08:59 11/12/20 10:40 Pantoprazole (Protonix) 40 mg EVERY 12 HOURS ORAL 10/28/20 21:00 11/27/20 20:59 11/12/20 20:58 Sevelamer Carbonate (Renvela) 800 mg THREE TIMES A DAY ORAL 10/28/20 13:00 01/26/21 12:59 11/12/20 18:59 Assessment/Plan Assessment/Plan 1. COVID-19 pneumonia. - wean down oxygen as tolerated while keeping SaO2 >92%; currently saturating well on 2 lpm NC - CXR 10/27/2020 shows multifocal infiltrate. - abd US 11/12/2020 shows large left, and small right pleural effusion - s/p decadron - s/p ceftriaxone and azithromycin. - Repeat COVID-19 test 10/29/2020 positive - Repeat COVID-19 PCR 11/11 negative - discontinue isolation 2. Renal failure, on dialysis. - per renal 3. Congestive heart failure. - BNP >35,000 - 2D echo EF 35-40% - management per cardio 4. Right eye conjunctivitis. - improved 5. DVT ppx - D-dimer 3.08, CRP 16.1 -> 4.0 - 10/29/2020 venous ultrasound unremarkable - On SCD 6. hyperkalemia - per renal Abdominal tenderness - US of abd 11/12 Coarsened liver echogenicity, nonspecific but could indicate hepatocellular disease We will follow carefully The care of this patient was discussed with my supervising physician Time spent for this encounter was approximately 31 minutes Zbigniew Serrano Nov 13, 2020 09:24
--- NOTE | 2020-11-13 11:01 | NUR ---
RD ASSESSMENT & RECOMMENDATIONS SEE CARE ACTIVITY FOR COMPLETE ASSESSMENT DAILY ESTIMATED NEEDS: Needs based on ESRD on HD 42kg 30-40 kcals/kg 8417-6534 total kcals 1.25-1.8 g protein/kg 53-76 g total protein Fluid per MD, on HD NUTRITION DIAGNOSIS: Increased kcal and pro needs r/t renal dysfunction, wound healing as evidenced by pt w/ ESRD on HD, admitted w/ wounds, including sacral DTPI. CURRENT DIET:Renal diet PO DIET RECOMMENDATIONS: Renal + CCHO MED diet/ texture per TESTER VIBRATOR EQUIPMENT ADDITIONAL RECOMMENDATIONS: 1) Daily wts, calibrated bed scale 2) Rec TESTER VIBRATOR EQUIPMENT eval for appropriate texture 3) Add NEPRO QD (425kcal/19g prot), monitor need for additional 4) Monitor for hypoglycemia (BG 68 this am) -> DC or LOWER LEVEMIR @ QHS- pt now w/ improved BG, hypoglycemic episodes 5) Wound healing: Nephrovite x 1, ZnSO4 220mg QD x 10 days Abdirahman BID as tolerated
--- NOTE | 2020-11-13 11:14 | NUR ---
DISCHARGE PLANNING PATIENT HAS BEEN REFERRED BACK TO [facility] P [phone] F [phone]
[2020-11-13 12:00] VITALS: BP 138/67
--- NOTE | 2020-11-13 12:20 | Surgery Progress Note ---
Surgery Progress Note Subjective Additional Comments improved d/c planning no n/v labs noted Objective Last 24 Hour Vital Signs Date Time Temp Pulse Resp B/P (MAP) Pulse Ox O2 Delivery O2 Flow Rate FiO2 11/13/20 12:00 97.3 81 18 138/67 (90) 96 11/13/20 09:21 83 149/67 11/13/20 09:00 Nasal Cannula 2.0 11/13/20 08:00 97.6 83 18 149/67 (94) 96 11/13/20 06:10 149/78 11/13/20 04:00 97.6 80 20 149/78 (101) 99 11/13/20 00:14 137/69 11/13/20 00:00 98.0 82 20 137/69 (91) 98 11/12/20 21:00 Nasal Cannula 2.0 11/12/20 20:00 97.7 99 22 139/69 (92) 98 11/12/20 18:00 115/58 11/12/20 16:00 98.1 80 18 139/78 (98) 97 I&O Intake and Output 11/12/20 11/13/20 19:00 07:00 Intake Total 240 ml Output Total 2000 ml Balance -2000 ml 240 ml Intake Oral 240 ml Hemodialysis UF 2000 ml Dressing: saturated Cardiovascular: RSR Respiratory: decreased breath sounds Abdomen: soft, non-tender, present bowel sounds Extremities: no tenderness, no cyanosis Laboratory Tests Test 11/12/20 17:44 11/12/20 20:31 11/13/20 06:12 11/13/20 06:14 POC Whole Blood Glucose Pending 196 MG/DL (74-106) H 65 MG/DL (74-106) L White Blood Count 7.8 K/UL (4.8-10.8) Red Blood Count 3.26 M/UL (4.20-5.40) L Hemoglobin 10.2 G/DL (12.0-16.0) L Hematocrit 30.8 % (37.0-47.0) L Mean Corpuscular Volume 95 FL (80-99) Mean Corpuscular Hemoglobin 31.4 PG (27.0-31.0) H Mean Corpuscular Hemoglobin Concent 33.2 G/DL (32.0-36.0) Red Cell Distribution Width 18.3 % (11.6-14.8) H Platelet Count 160 K/UL (150-450) Mean Platelet Volume 8.3 FL (6.5-10.1) Neutrophils (%) (Auto) 69.9 % (45.0-75.0) Lymphocytes (%) (Auto) 14.8 % (20.0-45.0) L Monocytes (%) (Auto) 12.6 % (1.0-10.0) H Eosinophils (%) (Auto) 1.7 % (0.0-3.0) Basophils (%) (Auto) 1.0 % (0.0-2.0) Sodium Level 139 MMOL/L (136-145) Potassium Level 4.3 MMOL/L (3.5-5.1) Chloride Level 103 MMOL/L (98-107) Carbon Dioxide Level 32 MMOL/L (21-32) Anion Gap 4 mmol/L (5-15) L Blood Urea Nitrogen 44 mg/dL (7-18) H Creatinine 4.5 MG/DL (0.55-1.30) H Estimat Glomerular Filtration Rate 9.5 mL/min (>60) Glucose Level 68 MG/DL (74-106) L Calcium Level 8.7 MG/DL (8.5-10.1) Phosphorus Level 4.5 MG/DL (2.5-4.9) Magnesium Level 2.0 MG/DL (1.8-2.4) Total Bilirubin 0.4 MG/DL (0.2-1.0) Aspartate Amino Transf (AST/SGOT) 16 U/L (15-37) Alanine Aminotransferase (ALT/SGPT) 9 U/L (12-78) L Alkaline Phosphatase 79 U/L (46-116) Total Protein 6.9 G/DL (6.4-8.2) Albumin 2.5 G/DL (3.4-5.0) L Globulin 4.4 g/dL Albumin/Globulin Ratio 0.6 (1.0-2.7) L Test 11/13/20 06:48 11/13/20 11:40 POC Whole Blood Glucose 101 MG/DL (74-106) 111 MG/DL (74-106) H Plan Problems: (1) Decubitus skin ulcer Assessment & Plan: Pt presented on admission with multiple Pressure Injuries. DTPI Sacrum(L)8cm x (W)8cm. Base of wound is purpuric with surrounding non- Blanchable erythema. Darker skin tone without erythema or induration periwound. Pt complained at site of DTPI when minimally palpated. Non-Blanchable erythema without induration R Ischium(L)7cm x (W)7.5cm. L Heel is boggy with non-Blanchable erythema. R heel is Boggy with non-blanchable erythema. Tx.Plan: Apply Moisture Barrier Paste to Sacrum. Cover with Optifoam drsg. Change every 3 days and prn.. Apply Moisture Barrier Paste to R and L Ischial tuberosities. Cover each Ischium with Optifoam drsgs. Change every 3 days and prn. Apply Cavilon Skin Barrier to R and L Heels and each Malleoli. Cover each site with Optifoam drsgs. Change every 7 days and prn. Cover Bony prominences as needed with Optifoam drsgs. Reposition at least every 2 hours or as tolerated. Off-load heels with Pillow. (2) Dyspnea (3) Respiratory distress (4) Pneumonia due to COVID-19 virus Assessment & Plan: ++ on tx id and pulm input appreciated limited movement will need to be cautions to ensure not worsening decub (5) Hypoglycemia (6) End stage renal disease on dialysis (7) Transient hypotension (8) Diastolic CHF, chronic (9) C. difficile colitis (10) Diarrhea Assessment & Plan: DAILY ESTIMATED NEEDS: Needs based on ESRD on HD 42kg 30-40 kcals/kg 1174-3464 total kcals 1.25-1.8 g protein/kg 53-76 g total protein Fluid per MD, on HD NUTRITION DIAGNOSIS: Increased kcal and pro needs r/t renal dysfunction, wound healing as evidenced by pt w/ ESRD on HD, admitted w/ wounds, including sacral DTPI. CURRENT DIET:Renal diet PO DIET RECOMMENDATIONS: Renal + CCHO MED diet/ texture per WAX PATTERN ASSEMBLER ADDITIONAL RECOMMENDATIONS: 1) Daily wts, calibrated bed scale 2) Rec WAX PATTERN ASSEMBLER eval for appropriate texture 3) Add NEPRO QD (425kcal/19g prot), monitor need for additional 4) Monitor for hypoglycemia (BG 68 this am) -> DC or LOWER LEVEMIR @ QHS- pt now w/ improved BG, hypoglycemic episodes 5) Wound healing: Nephrovite x 1, ZnSO4 220mg QD x 10 days Abdirahman BID as tolerated (11) ESRD (end stage renal disease) (12) Altered mental status (13) Pneumonia Kurt Flores Nov 13, 2020 12:20
--- NOTE | 2020-11-13 12:26 | Infectious Diseases Prog Note ---
Assessment/Plan Assessment/Plan antibiotics : none A 1. COVID-19 pneumonia on 2 L oxygen with O2 saturation of 96 %. s/p ivermectin s/p decadron 2. Renal failure, on dialysis. 3. Congestive heart failure. 4. Right eye conjunctivitis resolved 5. hypertension P 1. continue off antibiotics 2. d/c isolation Subjective Constitutional: Denies: fever, chills Respiratory: Denies: shortness of breath, dry cough Gastrointestinal/Abdominal: Denies: nausea, vomiting, diarrhea Musculoskeletal: Denies: pain Allergies: Coded Allergies: No Known Allergies (Unverified , 09/23/20) Objective Last 24 Hour Vital Signs Date Time Temp Pulse Resp B/P (MAP) Pulse Ox O2 Delivery O2 Flow Rate FiO2 11/13/20 12:00 97.3 81 18 138/67 (90) 96 11/13/20 09:21 83 149/67 11/13/20 09:00 Nasal Cannula 2.0 11/13/20 08:00 97.6 83 18 149/67 (94) 96 11/13/20 06:10 149/78 11/13/20 04:00 97.6 80 20 149/78 (101) 99 11/13/20 00:14 137/69 11/13/20 00:00 98.0 82 20 137/69 (91) 98 11/12/20 21:00 Nasal Cannula 2.0 11/12/20 20:00 97.7 99 22 139/69 (92) 98 11/12/20 18:00 115/58 11/12/20 16:00 98.1 80 18 139/78 (98) 97 Height (Feet): 5 Height (Inches): 1.00 Weight (Pounds): 92 Microbiology Date/Time Source Procedure Growth Status 11/11/20 14:32 Nasopharynx Coronavirus COVID-19 PCR ([facility]) - Final Complete Laboratory Tests Test 11/12/20 17:44 11/12/20 20:31 11/13/20 06:12 11/13/20 06:14 POC Whole Blood Glucose Pending 196 MG/DL (74-106) H 65 MG/DL (74-106) L White Blood Count 7.8 K/UL (4.8-10.8) Red Blood Count 3.26 M/UL (4.20-5.40) L Hemoglobin 10.2 G/DL (12.0-16.0) L Hematocrit 30.8 % (37.0-47.0) L Mean Corpuscular Volume 95 FL (80-99) Mean Corpuscular Hemoglobin 31.4 PG (27.0-31.0) H Mean Corpuscular Hemoglobin Concent 33.2 G/DL (32.0-36.0) Red Cell Distribution Width 18.3 % (11.6-14.8) H Platelet Count 160 K/UL (150-450) Mean Platelet Volume 8.3 FL (6.5-10.1) Neutrophils (%) (Auto) 69.9 % (45.0-75.0) Lymphocytes (%) (Auto) 14.8 % (20.0-45.0) L Monocytes (%) (Auto) 12.6 % (1.0-10.0) H Eosinophils (%) (Auto) 1.7 % (0.0-3.0) Basophils (%) (Auto) 1.0 % (0.0-2.0) Sodium Level 139 MMOL/L (136-145) Potassium Level 4.3 MMOL/L (3.5-5.1) Chloride Level 103 MMOL/L (98-107) Carbon Dioxide Level 32 MMOL/L (21-32) Anion Gap 4 mmol/L (5-15) L Blood Urea Nitrogen 44 mg/dL (7-18) H Creatinine 4.5 MG/DL (0.55-1.30) H Estimat Glomerular Filtration Rate 9.5 mL/min (>60) Glucose Level 68 MG/DL (74-106) L Calcium Level 8.7 MG/DL (8.5-10.1) Phosphorus Level 4.5 MG/DL (2.5-4.9) Magnesium Level 2.0 MG/DL (1.8-2.4) Total Bilirubin 0.4 MG/DL (0.2-1.0) Aspartate Amino Transf (AST/SGOT) 16 U/L (15-37) Alanine Aminotransferase (ALT/SGPT) 9 U/L (12-78) L Alkaline Phosphatase 79 U/L (46-116) Total Protein 6.9 G/DL (6.4-8.2) Albumin 2.5 G/DL (3.4-5.0) L Globulin 4.4 g/dL Albumin/Globulin Ratio 0.6 (1.0-2.7) L Test 11/13/20 06:48 11/13/20 11:40 POC Whole Blood Glucose 101 MG/DL (74-106) 111 MG/DL (74-106) H Current Medications Medications (Trade) Dose Ordered Sig/Yeimi Route PRN Reason Start Time Stop Time Status Last Admin Dose Admin Acetaminophen (Tylenol) 650 mg Q4H PRN ORAL Temp >100.5 10/27/20 14:15 11/26/20 14:14 11/05/20 17:22 Amlodipine Besylate (Norvasc) 5 mg DAILY ORAL 11/08/20 09:00 12/08/20 08:59 11/13/20 09:21 Citalopram Hydrobromide (CeleXA) 20 mg DAILY ORAL 10/29/20 09:00 11/28/20 08:59 11/13/20 09:20 Dextrose (Dextrose 50%) 25 ml Q30M PRN IV Hypoglycemia 10/28/20 20:45 01/26/21 20:44 Dextrose (Dextrose 50%) 50 ml Q30M PRN IV Hypoglycemia 10/28/20 20:45 01/26/21 20:44 Docusate Sodium (Colace) 100 mg TWICE A DAY ORAL 10/28/20 18:00 11/27/20 17:59 11/13/20 09:20 Haloperidol Lactate (Haldol) 5 mg Q6H PRN IM Agitation 10/28/20 15:45 12/12/20 15:44 Hydralazine HCl (Apresoline) 25 mg Q4H PRN ORAL For BP over 160 systolic 11/06/20 16:15 02/04/21 16:14 Hydralazine HCl (Apresoline) 25 mg Q6HR ORAL 11/07/20 18:00 02/05/21 17:59 11/13/20 06:10 Insulin Aspart (NovoLOG) BEFORE MEALS AND HS SUBQ 10/28/20 21:00 01/26/21 20:59 11/12/20 21:01 Insulin Detemir (Levemir) 10 units Q24H SUBQ 10/29/20 20:00 01/27/21 19:59 11/12/20 20:59 Megestrol Acetate (Megace) 400 mg DAILY ORAL 10/28/20 09:00 01/26/21 08:59 11/13/20 09:21 Pantoprazole (Protonix) 40 mg EVERY 12 HOURS ORAL 10/28/20 21:00 11/27/20 20:59 11/13/20 09:20 Sevelamer Carbonate (Renvela) 800 mg THREE TIMES A DAY ORAL 10/28/20 13:00 01/26/21 12:59 11/13/20 09:20 Erika Stiles MD Nov 13, 2020 12:26
--- NOTE | 2020-11-13 12:41 | Nephrology Progress Note ---
Assessment/Plan Problem List: (1) End stage renal disease on dialysis (2) C. difficile colitis (3) Transient hypotension (4) Diastolic CHF, chronic Assessment 75-year-old female presents with respiratory distress and COVID-19 infection Patient has end-stage renal disease and last dialyzed 4 days ago Patient presents with high potassium History of C. difficile colitis History of diabetes mellitus History of hypertension, presents with transient hypotension History of cardiomyopathy and diastolic CHF Plan November 13: Dialyzed yesterday. Labs reviewed. Stable from renal standpoint of view. Next hemodialysis tomorrow. November 12: Due for dialysis today. No chemistry panel done today. Blood pressure stable. Continue per current management. November 11: Last dialysis November 09. No labs drawn today yet. We will order dialysis tomorrow. November 10: Patient was dialyzed yesterday. Potassium now within normal limit. Blood pressure stable. Continue same. November 09: Due for dialysis today. Labs reviewed. Potassium 5.6 which will be corrected after dialysis. Will check repeat lab tomorrow. November 08: Dialyzed yesterday. Labs reviewed. Continue per consultants. Due for dialysis tomorrow. November 07: Due for dialysis today. Blood pressure medication adjusted. Will check lab tomorrow. November 06: Labs reviewed. Medication list reviewed. Will order dialysis for tomorrow. Continue per consultants. Hydralazine 25 mg as needed for high blood pressure ordered. November 05: Discussed with dialysis nurse. Patient was dialyzed late last night. However today's lab results suggestive of high BUN and creatinine. Serum potassium elevated but the repeat is normal. Will hold the Kayexalate. Will attempt another dialysis and order post BUN and creatinine. Reevaluation on November 05 at 3 PM: Stat BMP done as it appears this morning's lab was prior to dialysis even though it was marked 6 AM. The stat dialysis orders will be canceled based on new lab results. Will arrange for next dialysis on November 07 unless she needs it earlier. November 04: Patient due for dialysis today. Blood pressure stable. No UF is scheduled during dialysis. Check labs tomorrow. No can panel drawn today. November 03: Patient was dialyzed yesterday. Labs reviewed. Blood pressure more stable. Due for dialysis tomorrow. No ultrafiltration is ordered. November 02: Dialyzed today. Blood pressure 95 systolic. Parameters for BP medications. Patient asymptomatic. Albumin 25% 100 cc 1 bolus dose ordered. Continue rest. Discussed with RN. November 01: Dialyzed yesterday. Labs reviewed. Medication list reviewed. Blood pressure medication adjusted. Hemodialysis tomorrow. October 31: Due for dialysis today. No labs drawn today. Continue per consultants. Will check can panel tomorrow. Medication list reviewed. Blood pressure stable. October 30: Last dialyzed October 29. Due for dialysis October 31. Continue per consultants. October 29: Patient dialyzed last evening of October 27. Serum creatinine and electrolyte much improved Continue per current treatment plan Per orders Next dialysis today October 29 Check labs in a.m. Subjective ROS Limited/Unobtainable: No Objective Objective Last 24 Hour Vital Signs Date Time Temp Pulse Resp B/P (MAP) Pulse Ox O2 Delivery O2 Flow Rate FiO2 11/13/20 12:00 97.3 81 18 138/67 (90) 96 11/13/20 09:21 83 149/67 11/13/20 09:00 Nasal Cannula 2.0 11/13/20 08:00 97.6 83 18 149/67 (94) 96 11/13/20 06:10 149/78 11/13/20 04:00 97.6 80 20 149/78 (101) 99 11/13/20 00:14 137/69 11/13/20 00:00 98.0 82 20 137/69 (91) 98 11/12/20 21:00 Nasal Cannula 2.0 11/12/20 20:00 97.7 99 22 139/69 (92) 98 11/12/20 18:00 115/58 11/12/20 16:00 98.1 80 18 139/78 (98) 97 Intake and Output 11/12/20 11/13/20 19:00 07:00 Intake Total 240 ml Output Total 2000 ml Balance -2000 ml 240 ml Intake Oral 240 ml Hemodialysis UF 2000 ml Laboratory Tests 11/12/20 17:44: POC Whole Blood Glucose [Pending] 11/12/20 20:31: POC Whole Blood Glucose 196H 11/13/20 06:12: POC Whole Blood Glucose 65L 11/13/20 06:14: White Blood Count 7.8, Red Blood Count 3.26L, Hemoglobin 10.2L, Hematocrit 30.8L , Mean Corpuscular Volume 95, Mean Corpuscular Hemoglobin 31.4H, Mean Corpuscular Hemoglobin Concent 33.2, Red Cell Distribution Width 18.3H, Platelet Count 160, Mean Platelet Volume 8.3, Neutrophils (%) (Auto) 69.9, Lymphocytes (%) (Auto) 14.8L, Monocytes (%) (Auto) 12.6H, Eosinophils (%) (Auto) 1.7, Basophils (%) (Auto) 1.0, Sodium Level 139, Potassium Level 4.3, Chloride Level 103, Carbon Dioxide Level 32, Anion Gap 4L, Blood Urea Nitrogen 44H, Creatinine 4.5H, Estimat Glomerular Filtration Rate 9.5, Glucose Level 68L, Calcium Level 8.7, Phosphorus Level 4.5, Magnesium Level 2.0, Total Bilirubin 0.4, Aspartate Amino Transf (AST/SGOT) 16, Alanine Aminotransferase (ALT/SGPT) 9L, Alkaline Phosphatase 79, Total Protein 6.9, Albumin 2.5L, Globulin 4.4, Albumin/Globulin Ratio 0.6L 11/13/20 06:48: POC Whole Blood Glucose 101 11/13/20 11:40: POC Whole Blood Glucose 111H Height (Feet): 5 Height (Inches): 1.00 Weight (Pounds): 92 General Appearance: no apparent distress, lethargic Cardiovascular: normal rate Respiratory/Chest: decreased breath sounds Abdomen: distended Objective No change Chris Puckett MD Nov 13, 2020 12:41
--- NOTE | 2020-11-13 14:25 | General Progress Note ---
Subjective Allergies: Coded Allergies: No Known Allergies (Unverified , 09/23/20) Subjective sob better awake eating better off isolation Objective Last 24 Hour Vital Signs Date Time Temp Pulse Resp B/P (MAP) Pulse Ox O2 Delivery O2 Flow Rate FiO2 11/13/20 13:10 138/67 11/13/20 12:00 97.3 81 18 138/67 (90) 96 11/13/20 09:21 83 149/67 11/13/20 09:00 Nasal Cannula 2.0 11/13/20 08:00 97.6 83 18 149/67 (94) 96 11/13/20 06:10 149/78 11/13/20 04:00 97.6 80 20 149/78 (101) 99 11/13/20 00:14 137/69 11/13/20 00:00 98.0 82 20 137/69 (91) 98 11/12/20 21:00 Nasal Cannula 2.0 11/12/20 20:00 97.7 99 22 139/69 (92) 98 11/12/20 18:00 115/58 11/12/20 16:00 98.1 80 18 139/78 (98) 97 Intake and Output 11/12/20 11/13/20 19:00 07:00 Intake Total 240 ml Output Total 2000 ml Balance -2000 ml 240 ml Intake Oral 240 ml Hemodialysis UF 2000 ml Laboratory Tests 11/12/20 17:44: POC Whole Blood Glucose [Pending] 11/12/20 20:31: POC Whole Blood Glucose 196H 11/13/20 06:12: POC Whole Blood Glucose 65L 11/13/20 06:14: White Blood Count 7.8, Red Blood Count 3.26L, Hemoglobin 10.2L, Hematocrit 30.8L , Mean Corpuscular Volume 95, Mean Corpuscular Hemoglobin 31.4H, Mean Corpuscular Hemoglobin Concent 33.2, Red Cell Distribution Width 18.3H, Platelet Count 160, Mean Platelet Volume 8.3, Neutrophils (%) (Auto) 69.9, Lymphocytes (%) (Auto) 14.8L, Monocytes (%) (Auto) 12.6H, Eosinophils (%) (Auto) 1.7, Basophils (%) (Auto) 1.0, Sodium Level 139, Potassium Level 4.3, Chloride Level 103, Carbon Dioxide Level 32, Anion Gap 4L, Blood Urea Nitrogen 44H, Creatinine 4.5H, Estimat Glomerular Filtration Rate 9.5, Glucose Level 68L, Calcium Level 8.7, Phosphorus Level 4.5, Magnesium Level 2.0, Total Bilirubin 0.4, Aspartate Amino Transf (AST/SGOT) 16, Alanine Aminotransferase (ALT/SGPT) 9L, Alkaline Phosphatase 79, Total Protein 6.9, Albumin 2.5L, Globulin 4.4, Albumin/Globulin Ratio 0.6L 11/13/20 06:48: POC Whole Blood Glucose 101 11/13/20 11:40: POC Whole Blood Glucose 111H Height (Feet): 5 Height (Inches): 1.00 Weight (Pounds): 92 General Appearance: alert EENT: PERRL/EOMI Neck: supple Cardiovascular: regular rhythm Respiratory/Chest: normal breath sounds Abdomen: non tender, soft Extremities: non-tender Assessment/Plan Status: stable Assessment/Plan: 1 sob 2 covid pna cont isolation 3 chf diastolic acute 4 esrd on hd 5 failure of thrive 6 dementia 7 dm poory controlled due to steroids 8 hypotension 9 hyperkalemia rpt ok add levamier and high dose short insulin pt/ot eval dw pt pt is very weak id for evaluation for rpt covid for dc plan cardio and pulmonary consult off abx off isolation dc plan to snf Cesar Swanson MD Nov 13, 2020 14:25
--- NOTE | 2020-11-13 15:02 | Cardiology Progress Note ---
Assessment/Plan Status: not improved Status Narrative 1. COVID-19 viral PNA low grade fever, improved antiviral tx per ID 2. HFrEF, acute on chronic systolic on diastolic HF with EF 35-40% BNP severely elevated Fluid balance with HD Troponin negative Good O2 perfusion 3. ESRD on HD Aneuric Microfiltration for fluid balance 4. HTN - under better control 5. Mitral regurgitation - mod-severe contributing to severity of HF 6. possible ASD with L to R shunt 7. Sinus tachycardia 2/2 viral PNA and fever rate controlled, in SR 8. Anemia of chronic disease 9. Respiratory failure - O2 dependent HD 2 L removed. Fluid balance with HD, still in fluid overload, BNP severely elevated. Tx for viral PNA per ID. In SR, rate and SBP controlled. Subjective ROS Limited/Unobtainable: Yes Cardiovascular: Reports: edema Respiratory: Reports: shortness of breath Gastrointestinal/Abdominal: Reports: poor appetite Genitourinary: Reports: no symptoms Subjective SBP and HR in normal territory, good O2 perfusion on O2 NC Objective Last 24 Hour Vital Signs Date Time Temp Pulse Resp B/P (MAP) Pulse Ox O2 Delivery O2 Flow Rate FiO2 11/13/20 13:10 138/67 11/13/20 12:00 97.3 81 18 138/67 (90) 96 11/13/20 09:21 83 149/67 11/13/20 09:00 Nasal Cannula 2.0 11/13/20 08:00 97.6 83 18 149/67 (94) 96 11/13/20 06:10 149/78 11/13/20 04:00 97.6 80 20 149/78 (101) 99 11/13/20 00:14 137/69 11/13/20 00:00 98.0 82 20 137/69 (91) 98 11/12/20 21:00 Nasal Cannula 2.0 11/12/20 20:00 97.7 99 22 139/69 (92) 98 11/12/20 18:00 115/58 11/12/20 16:00 98.1 80 18 139/78 (98) 97 General Appearance: no apparent distress EENT: PERRL/EOMI Rhythm: NSR Respiratory/Chest: no accessory muscle use Intake and Output 11/12/20 11/13/20 19:00 07:00 Intake Total 240 ml Output Total 2000 ml Balance -2000 ml 240 ml Intake Oral 240 ml Hemodialysis UF 2000 ml Laboratory Tests Test 11/12/20 17:44 11/12/20 20:31 11/13/20 06:12 11/13/20 06:14 POC Whole Blood Glucose Pending 196 MG/DL (74-106) H 65 MG/DL (74-106) L White Blood Count 7.8 K/UL (4.8-10.8) Red Blood Count 3.26 M/UL (4.20-5.40) L Hemoglobin 10.2 G/DL (12.0-16.0) L Hematocrit 30.8 % (37.0-47.0) L Mean Corpuscular Volume 95 FL (80-99) Mean Corpuscular Hemoglobin 31.4 PG (27.0-31.0) H Mean Corpuscular Hemoglobin Concent 33.2 G/DL (32.0-36.0) Red Cell Distribution Width 18.3 % (11.6-14.8) H Platelet Count 160 K/UL (150-450) Mean Platelet Volume 8.3 FL (6.5-10.1) Neutrophils (%) (Auto) 69.9 % (45.0-75.0) Lymphocytes (%) (Auto) 14.8 % (20.0-45.0) L Monocytes (%) (Auto) 12.6 % (1.0-10.0) H Eosinophils (%) (Auto) 1.7 % (0.0-3.0) Basophils (%) (Auto) 1.0 % (0.0-2.0) Sodium Level 139 MMOL/L (136-145) Potassium Level 4.3 MMOL/L (3.5-5.1) Chloride Level 103 MMOL/L (98-107) Carbon Dioxide Level 32 MMOL/L (21-32) Anion Gap 4 mmol/L (5-15) L Blood Urea Nitrogen 44 mg/dL (7-18) H Creatinine 4.5 MG/DL (0.55-1.30) H Estimat Glomerular Filtration Rate 9.5 mL/min (>60) Glucose Level 68 MG/DL (74-106) L Calcium Level 8.7 MG/DL (8.5-10.1) Phosphorus Level 4.5 MG/DL (2.5-4.9) Magnesium Level 2.0 MG/DL (1.8-2.4) Total Bilirubin 0.4 MG/DL (0.2-1.0) Aspartate Amino Transf (AST/SGOT) 16 U/L (15-37) Alanine Aminotransferase (ALT/SGPT) 9 U/L (12-78) L Alkaline Phosphatase 79 U/L (46-116) Total Protein 6.9 G/DL (6.4-8.2) Albumin 2.5 G/DL (3.4-5.0) L Globulin 4.4 g/dL Albumin/Globulin Ratio 0.6 (1.0-2.7) L Test 11/13/20 06:48 11/13/20 11:40 POC Whole Blood Glucose 101 MG/DL (74-106) 111 MG/DL (74-106) H Microbiology Date/Time Source Procedure Growth Status 11/11/20 14:32 Nasopharynx Coronavirus COVID-19 PCR ([facility]) - Final Complete Pamela Chowdhury PA-C Nov 13, 2020 15:02
[2020-11-13 16:00] VITALS: BP 128/65
--- NOTE | 2020-11-13 16:24 | NUR ---
CASE MANAGEMENT:REVIEW SI;COVID PNA~NOW NEGATIVE 11/11/20 MITRAL REGURGITATION. HTN. 98.0 83 18 149/78 96% 2L NC BUN 44 CR 4.5 BG 68 ALB 2.5 IS;NORVASC PO QD HYDRALAZINE PO Q6 PROTONIX PO Q12 MED SURG STATUS DCP;FROM [facility]
--- NOTE | 2020-11-13 19:27 | NUR ---
NURSE HAND-OFF: Important Events on Shift: Off covid isolation Patient Status: stable Diet: renal Pending Orders: n/a Pending Results/Labs:n/a Pending MD notification:n/a Latest Vital Signs: Temperature 97.7 , Pulse 77 , B/P 128 /65 , Respiratory Rate 18 , O2 SAT 96 , Nasal Cannula, O2 Flow Rate 2.0 . Vital Sign Comment: stable Latest Ness Fall Score: 50 Fall Risk: High Risk Safety Measures: Call light Within Reach, Bed Alarm Zone 1, Side Rails Side Rails x2, Bed position Low and Locked. Fall Precautions: Yellow Socks Yellow Gown Door Sign Patient Fall Education Report given to ZENAIDA Booker.
[2020-11-13 20:00] VITALS: BP 147/66
--- NOTE | 2020-11-13 20:08 | NUR ---
NURSE NOTES: Pt is in bed, awake and verbal. Pt is Estonian speaking, also speaks little Luxembourger. Pt is on 2L N/C, appears to be comfortable. Pt states feeling better and breathing ok. Pt is bedbound, pt will be repositioned and cleaned as needed. Fall precaution in place, bed locked low in position,side rails up and call light within reach. Pt will be monitored.
[2020-11-13] MEDS: Levemir Flexpen SUBQ SCH (20:56)
[2020-11-14] VITALS: BP 148/69
[2020-11-14] MEDS: HydrALAZINE 25mg tab ORAL SCH ×4 (01:00→17:34)
[2020-11-14 04:00] VITALS: BP 135/68
[2020-11-14 04:56] LABS: ALANINE AMINOTRANSFERASE 8 U/L (12-78); ALBUMIN 2.6 G/DL (3.4-5.0); ALBUMIN/GLOBULIN RATIO 0.6 (1.0-2.7); ALKALINE PHOSPHATASE 94 U/L (46-116); ANION GAP 5 mmol/L (5-15); ASPARTATE AMINO TRANSFERASE 13 U/L (15-37); BILIRUBIN,TOTAL < 0.1 MG/DL (0.2-1.0); BLOOD UREA NITROGEN 67 mg/dL (7-18); CALCIUM 8.4 MG/DL (8.5-10.1); CARBON DIOXIDE 32 MMOL/L (21-32); CHLORIDE 102 MMOL/L (98-107); PHOSPHORUS 5.5 MG/DL (2.5-4.9); POTASSIUM 4.7 MMOL/L (3.5-5.1); SODIUM 139 MMOL/L (136-145)
[2020-11-14] MEDS: NovoLOG Insulin Flexpen SUBQ SCH ×4 (06:30→21:00)
--- NOTE | 2020-11-14 06:30 | NUR ---
NURSE NOTES: Pt's blood sugar was 57 after apple juice on recheck blood sugar was 95. Pt is awake and alert. No acute distress noted.
--- NOTE | 2020-11-14 06:41 | Hematology/Onc Progress Note ---
Assessment/Plan Assessment/Plan # Anemia of chronic disease due to underlying chronic medical issues, multifactorial v Gi bleed --> Anemia workup has been ordered, rule out gi bleed --> No evidence of hemolysis is noted, peripheral smear has been reviewed. --> Hgb goal >7. Transfuse prn --> Epogen or iron at this time is not particularly indicated --> Medications have been reviewed --> low threshold for gi evaluation in case has occult + --> hgb 11-->9.6-->10.4 # Thrombocytopenia due to Covid pna++++++++ --> cont isolation -> completed steriods --> per pulm recs --> plt 160-->98 --> hep and hiv are neg # chf diastolic acute -> cards aware # Esrd on hd --> per renal # failure of thrive # dementia # dm poory controlled due to steroids Appreciate consultation and dw PCP Subjective HEENT: Denies: no symptoms, eye pain, blurred vision, tearing, double vision, ear pain, ear discharge, nose pain, nose congestion, throat pain, throat swelling, mouth pain, mouth swelling, other Cardiovascular: Denies: no symptoms, chest pain, edema, irregular heart rate, lightheadedness, palpitations, syncope, other Respiratory: Denies: no symptoms, cough, shortness of breath, SOB with excertion, SOB at rest, sputum, wheezing, other Gastrointestinal/Abdominal: Denies: no symptoms, abdomen distended, abdominal pain, black stools, tarry stools, blood in stool, constipated, diarrhea, difficulty swallowing, nausea, poor appetite, poor fluid intake, rectal bleeding, vomiting, other Neurologic/Psychiatric: Denies: no symptoms, anxiety, depressed, emotional problems, headache, numbness, paresthesia, pre-existing deficit, seizure, tingl ing, tremors, weakness, other Hematologic/Lymphatic: Denies: no symptoms, anemia, easy bleeding, easy brui sing, adenopathy, other Allergies: Coded Allergies: No Known Allergies (Unverified , 09/23/20) Subjective 11/04 labs are noted, no bleeding, meds reviewed, on , seen by pulm 11/05 hd done yesterday, no bleeding, cbc is pending 11/06 awake, alert, labs are pending, reviewed case consultant recs 11/07 meds reviewed, labs noted, no bleeding 11/08 labs are noted, no bleeding, meds are reviewed 11/10 meds noted, no bleeding, no f/c, no bleeding 11/11 hgb 10.1 yest, pending for today cbc/bmp 11/12 is on nc, no bleeding, plt lower ordered hep, hiv us abd 11/13 is on 2lnc, no bleeding, meds reviewed, labs noted 11/14 on 2l, labs pending, no bleeding, meds reviewed Objective Objective Current Medications Medications (Trade) Dose Ordered Sig/Yeimi Route PRN Reason Start Time Stop Time Status Last Admin Dose Admin Acetaminophen (Tylenol) 650 mg Q4H PRN ORAL Temp >100.5 10/27/20 14:15 11/26/20 14:14 11/05/20 17:22 Amlodipine Besylate (Norvasc) 5 mg DAILY ORAL 11/08/20 09:00 12/08/20 08:59 11/13/20 09:21 Citalopram Hydrobromide (CeleXA) 20 mg DAILY ORAL 10/29/20 09:00 11/28/20 08:59 11/13/20 09:20 Dextrose (Dextrose 50%) 25 ml Q30M PRN IV Hypoglycemia 10/28/20 20:45 01/26/21 20:44 Dextrose (Dextrose 50%) 50 ml Q30M PRN IV Hypoglycemia 10/28/20 20:45 01/26/21 20:44 Docusate Sodium (Colace) 100 mg TWICE A DAY ORAL 10/28/20 18:00 11/27/20 17:59 11/13/20 17:22 Haloperidol Lactate (Haldol) 5 mg Q6H PRN IM Agitation 10/28/20 15:45 12/12/20 15:44 Hydralazine HCl (Apresoline) 25 mg Q4H PRN ORAL For BP over 160 systolic 11/06/20 16:15 02/04/21 16:14 Hydralazine HCl (Apresoline) 25 mg Q6HR ORAL 11/07/20 18:00 02/05/21 17:59 11/14/20 06:02 Insulin Aspart (NovoLOG) BEFORE MEALS AND HS SUBQ 10/28/20 21:00 01/26/21 20:59 11/12/20 21:01 Insulin Detemir (Levemir) 10 units Q24H SUBQ 10/29/20 20:00 01/27/21 19:59 11/13/20 20:56 Megestrol Acetate (Megace) 400 mg DAILY ORAL 10/28/20 09:00 01/26/21 08:59 11/13/20 09:21 Pantoprazole (Protonix) 40 mg EVERY 12 HOURS ORAL 10/28/20 21:00 11/27/20 20:59 11/13/20 20:51 Sevelamer Carbonate (Renvela) 800 mg THREE TIMES A DAY ORAL 10/28/20 13:00 01/26/21 12:59 11/13/20 17:22 Last 24 Hour Vital Signs Date Time Temp Pulse Resp B/P (MAP) Pulse Ox O2 Delivery O2 Flow Rate FiO2 11/14/20 06:02 135/68 11/14/20 04:00 97.9 87 20 135/68 (90) 100 11/14/20 01:00 148/69 11/14/20 00:00 97.9 79 20 148/69 (95) 100 11/13/20 21:00 Nasal Cannula 2.0 11/13/20 20:00 97.7 77 20 147/66 (93) 100 11/13/20 17:22 128/65 11/13/20 16:00 97.7 77 18 128/65 (86) 96 11/13/20 13:10 138/67 11/13/20 12:00 97.3 81 18 138/67 (90) 96 11/13/20 09:21 83 149/67 11/13/20 09:00 Nasal Cannula 2.0 11/13/20 08:00 97.6 83 18 149/67 (94) 96 11/13/20 06:10 149/78 11/13/20 04:00 97.6 80 20 149/78 (101) 99 11/13/20 00:14 137/69 11/13/20 00:00 98.0 82 20 137/69 (91) 98 11/12/20 21:00 Nasal Cannula 2.0 11/12/20 20:00 97.7 99 22 139/69 (92) 98 11/12/20 18:00 115/58 11/12/20 16:00 98.1 80 18 139/78 (98) 97 11/12/20 12:00 97.5 78 18 156/74 (101) 98 11/12/20 09:00 Nasal Cannula 2.0 11/12/20 08:00 98.8 87 17 171/79 (109) 98 Intake and Output 11/13/20 11/14/20 19:00 07:00 Intake Total 480 ml Balance 480 ml Intake Oral 480 ml # Voids 2 # Bowel Movements 1 1 Labs Test 11/11/20 10:25 11/11/20 13:21 11/11/20 16:20 11/11/20 21:27 White Blood Count 8.4 K/UL (4.8-10.8) Red Blood Count 3.60 M/UL (4.20-5.40) Hemoglobin 11.5 G/DL (12.0-16.0) Hematocrit 35.2 % (37.0-47.0) Mean Corpuscular Volume 98 FL (80-99) Mean Corpuscular Hemoglobin 32.0 PG (27.0-31.0) Mean Corpuscular Hemoglobin Concent 32.6 G/DL (32.0-36.0) Red Cell Distribution Width 18.7 % (11.6-14.8) Platelet Count 98 K/UL (150-450) Mean Platelet Volume 9.1 FL (6.5-10.1) Neutrophils (%) (Auto) % (45.0-75.0) Lymphocytes (%) (Auto) % (20.0-45.0) Monocytes (%) (Auto) % (1.0-10.0) Eosinophils (%) (Auto) % (0.0-3.0) Basophils (%) (Auto) % (0.0-2.0) Differential Total Cells Counted 100 Neutrophils % (Manual) 72 % (45-75) Lymphocytes % (Manual) 21 % (20-45) Monocytes % (Manual) 6 % (1-10) Eosinophils % (Manual) 0 % (0-3) Basophils % (Manual) 1 % (0-2) Band Neutrophils 0 % (0-8) Platelet Estimate Decreased Platelet Morphology Normal Anisocytosis 1+ Macrocytosis 1+ POC Whole Blood Glucose 107 MG/DL (74-106) 124 MG/DL (74-106) 103 MG/DL (74-106) Test 11/12/20 06:03 11/12/20 10:38 11/12/20 11:11 11/12/20 17:44 POC Whole Blood Glucose 122 MG/DL (74-106) Hepatitis A IgM Antibody Negative (Negative) Hepatitis B Surface Antigen Negative (Negative) Hepatitis B Core IgM Antibody Negative (Negative) Hepatitis C Antibody 0.1 s/co ratio (0.0-0.9) HIV (1&2) Antibody Rapid Negative (NEGATIVE) Test 11/12/20 20:31 11/13/20 06:12 11/13/20 06:14 11/13/20 06:48 POC Whole Blood Glucose 196 MG/DL (74-106) 65 MG/DL (74-106) 101 MG/DL (74-106) White Blood Count 7.8 K/UL (4.8-10.8) Red Blood Count 3.26 M/UL (4.20-5.40) Hemoglobin 10.2 G/DL (12.0-16.0) Hematocrit 30.8 % (37.0-47.0) Mean Corpuscular Volume 95 FL (80-99) Mean Corpuscular Hemoglobin 31.4 PG (27.0-31.0) Mean Corpuscular Hemoglobin Concent 33.2 G/DL (32.0-36.0) Red Cell Distribution Width 18.3 % (11.6-14.8) Platelet Count 160 K/UL (150-450) Mean Platelet Volume 8.3 FL (6.5-10.1) Neutrophils (%) (Auto) 69.9 % (45.0-75.0) Lymphocytes (%) (Auto) 14.8 % (20.0-45.0) Monocytes (%) (Auto) 12.6 % (1.0-10.0) Eosinophils (%) (Auto) 1.7 % (0.0-3.0) Basophils (%) (Auto) 1.0 % (0.0-2.0) Sodium Level 139 MMOL/L (136-145) Potassium Level 4.3 MMOL/L (3.5-5.1) Chloride Level 103 MMOL/L (98-107) Carbon Dioxide Level 32 MMOL/L (21-32) Anion Gap 4 mmol/L (5-15) Blood Urea Nitrogen 44 mg/dL (7-18) Creatinine 4.5 MG/DL (0.55-1.30) Estimat Glomerular Filtration Rate 9.5 mL/min (>60) Glucose Level 68 MG/DL (74-106) Calcium Level 8.7 MG/DL (8.5-10.1) Phosphorus Level 4.5 MG/DL (2.5-4.9) Magnesium Level 2.0 MG/DL (1.8-2.4) Total Bilirubin 0.4 MG/DL (0.2-1.0) Aspartate Amino Transf (AST/SGOT) 16 U/L (15-37) Alanine Aminotransferase (ALT/SGPT) 9 U/L (12-78) Alkaline Phosphatase 79 U/L (46-116) Total Protein 6.9 G/DL (6.4-8.2) Albumin 2.5 G/DL (3.4-5.0) Globulin 4.4 g/dL Albumin/Globulin Ratio 0.6 (1.0-2.7) Test 11/13/20 11:40 11/13/20 16:52 11/13/20 20:44 11/14/20 04:11 POC Whole Blood Glucose 111 MG/DL (74-106) 101 MG/DL (74-106) 127 MG/DL (74-106) Sodium Level 139 MMOL/L (136-145) Potassium Level 4.7 MMOL/L (3.5-5.1) Chloride Level 102 MMOL/L (98-107) Carbon Dioxide Level 32 MMOL/L (21-32) Anion Gap 5 mmol/L (5-15) Blood Urea Nitrogen 67 mg/dL (7-18) Creatinine 6.0 MG/DL (0.55-1.30) Estimat Glomerular Filtration Rate 6.8 mL/min (>60) Glucose Level 82 MG/DL (74-106) Calcium Level 8.4 MG/DL (8.5-10.1) Phosphorus Level 5.5 MG/DL (2.5-4.9) Magnesium Level 2.1 MG/DL (1.8-2.4) Total Bilirubin < 0.1 MG/DL (0.2-1.0) Aspartate Amino Transf (AST/SGOT) 13 U/L (15-37) Alanine Aminotransferase (ALT/SGPT) 8 U/L (12-78) Alkaline Phosphatase 94 U/L (46-116) C-Reactive Protein, Quantitative 0.7 mg/dL (0.00-0.90) Pro-B-Type Natriuretic Peptide > 04306 pg/mL (0-125) Total Protein 6.9 G/DL (6.4-8.2) Albumin 2.6 G/DL (3.4-5.0) Globulin 4.3 g/dL Albumin/Globulin Ratio 0.6 (1.0-2.7) Test 11/14/20 05:57 POC Whole Blood Glucose 57 MG/DL (74-106) Height (Feet): 5 Height (Inches): 1.00 Weight (Pounds): 92 Objective Gen: nad Pulm: ctab CV: rrr Abd: soft, nt, nd ext: no cce Timothy Lam MD Nov 14, 2020 06:40
[2020-11-14 06:51] LABS: BASOPHILS % (AUTO) 0.9 % (0.0-2.0); EOSINOPHILS % (AUTO) 0.9 % (0.0-3.0); HEMATOCRIT 33.8 % (37.0-47.0); HEMOGLOBIN 10.6 G/DL (12.0-16.0); LYMPHOCYTES % (AUTO) 12.9 % (20.0-45.0); MEAN CORPUSCULAR VOLUME 101 FL (80-99); MONOCYTES % (AUTO) 13.4 % (1.0-10.0); NEUTROPHILS % (AUTO) 71.9 % (45.0-75.0); PLATELET COUNT 106 K/UL (150-450); RED BLOOD COUNT 3.34 M/UL (4.20-5.40); WHITE BLOOD COUNT 10.6 K/UL (4.8-10.8)
--- NOTE | 2020-11-14 07:05 | NUR ---
NURSE HAND-OFF: Important Events on Shift:[] Patient Status: [Stable] Diet: [] Pending Orders: [] Pending Results/Labs:[] Pending MD notification:[] Latest Vital Signs: Temperature 97.9 , Pulse 87 , B/P 135 /68 , Respiratory Rate 20 , O2 SAT 100 , Nasal Cannula, O2 Flow Rate 2.0 . Vital Sign Comment: [] Latest Ness Fall Score: 50 Fall Risk: High Risk Safety Measures: Call light Within Reach, Bed Alarm Zone 1, Side Rails Side Rails x2, Bed position Low and Locked. Fall Precautions: Yellow Socks Yellow Gown Door Sign Patient Fall Education Report given to ZENAIDA Epstein[].
--- NOTE | 2020-11-14 07:25 | NUR ---
NURSE NOTES: Received report from ZENAIDA Booker. Patient seen in bed AAOx1, eating breakfast at this time. tolerates meals well. no aspiration and coughing noted while eating. Patient on O2@ 2l/min via NC, breathing is even and unlabored with no SOB noted at this time. Patient planned for dialysis today, but no active order, will wait for Dr. Paul. HOB elevated. no acute distress noted at this time. Left AV fistula in place. no redness and tenderness noted on site. Bed is locked and placed in lowest position with bed alarm on. call light within reach. will continue to monitor
[2020-11-14 08:00] VITALS: BP 153/69
[2020-11-14] MEDS: Docusate 100mg cap ORAL SCH ×2 (09:00→17:34)
[2020-11-14] MEDS: Citalopram Hydrobromide 10mg Tab ORAL SCH (09:00)
[2020-11-14] MEDS: Megace 400mg/10ml Susp ORAL SCH (09:01)
--- NOTE | 2020-11-14 09:17 | Pulmonology Progress Note ---
Subjective ROS Limited/Unobtainable: Yes Interval Events: s/p dialysis, 2 L removed Constitutional: Denies: fever, chills HEENT: Repors: no symptoms Respiratory: Reports: no symptoms Cardiovascular: Reports: no symptoms Gastrointestinal/Abdominal: Denies: nausea, vomiting, diarrhea Musculoskeletal: Denies: pain Allergies: Coded Allergies: No Known Allergies (Unverified , 09/23/20) Objective Last 24 Hour Vital Signs Date Time Temp Pulse Resp B/P (MAP) Pulse Ox O2 Delivery O2 Flow Rate FiO2 11/14/20 09:01 87 153/69 11/14/20 08:00 98.2 87 18 153/69 (97) 100 11/14/20 06:02 135/68 11/14/20 04:00 97.9 87 20 135/68 (90) 100 11/14/20 01:00 148/69 11/14/20 00:00 97.9 79 20 148/69 (95) 100 11/13/20 21:00 Nasal Cannula 2.0 11/13/20 20:00 97.7 77 20 147/66 (93) 100 11/13/20 17:22 128/65 11/13/20 16:00 97.7 77 18 128/65 (86) 96 11/13/20 13:10 138/67 11/13/20 12:00 97.3 81 18 138/67 (90) 96 11/13/20 09:21 83 149/67 Intake and Output 11/13/20 11/14/20 19:00 07:00 Intake Total 480 ml Balance 480 ml Intake Oral 480 ml # Voids 2 # Bowel Movements 1 1 Objective 11/13 s/p dialysis, 2L removed; saturating well on 2L NC 11/12 due for dialysis and abd US today, NPO 11/11 no change 11/10 s/p dialysis; 1.6L removed; saturating well on 2 lpm NC 11/09 due for dialysis today; continues to saturate well on 2 lpm NC 11/08 s/p dialysis; saturating well on 2 lpm NC 11/07/2020 s/p dialysis 11/06/2020 pt being seen by PT; saturating well on 2 lpm NC; due for dialysis today 11/05/2020 pt asleep; s/p dialysis; saturating well on 2 lpm NC 11/04/2020 pt asleep; saturating well on 2 lpm NC; NAD 11/03/2020 saturating well on 2 lpm NC; eating in bed; NAD 11/02/2020 saturating well on 1 lpm NC; s/p dialysis 11/01/2020 saturating well on 1 lpm NC 10/31/2020 patient alert; saturating well on 1 lpm NC 10/30/2020 pt asleep; saturating well on low flow oxygen 10/29/2020 pt asleep in bed; saturating well on low flow oxygen General Appearance: other - thin HEENT: normocephalic, atraumatic Respiratory: chest wall non-tender, rhonchi - bilaterally, other - dialysis catheter Cardiovascular: normal rate, regular rhythm Abdomen: soft, non tender Microbiology Date/Time Source Procedure Growth Status 11/11/20 14:32 Nasopharynx Coronavirus COVID-19 PCR ([facility]) - Final Complete Laboratory Tests 11/13/20 11:40: POC Whole Blood Glucose 111H 11/13/20 16:52: POC Whole Blood Glucose 101 11/13/20 20:44: POC Whole Blood Glucose 127H 11/14/20 04:11: White Blood Count 10.6, Red Blood Count 3.34L, Hemoglobin 10.6L, Hematocrit 33.8L, Mean Corpuscular Volume 101H, Mean Corpuscular Hemoglobin 31.6H, Mean Corpuscular Hemoglobin Concent 31.2L, Red Cell Distribution Width 17.0H, Platelet Count 106L, Mean Platelet Volume 6.8, Neutrophils (%) (Auto) 71.9, Lymphocytes (%) (Auto) 12.9L, Monocytes (%) (Auto) 13.4H, Eosinophils (%) (Auto) 0.9, Basophils (%) (Auto) 0.9, Sodium Level 139, Potassium Level 4.7, Chloride Level 102, Carbon Dioxide Level 32, Anion Gap 5, Blood Urea Nitrogen 67H, Creatinine 6.0H, Estimat Glomerular Filtration Rate 6.8, Glucose Level 82, Calcium Level 8.4L, Phosphorus Level 5.5H, Magnesium Level 2.1, Total Bilirubin < 0.1L, Aspartate Amino Transf (AST/SGOT) 13L, Alanine Aminotransferase (ALT/SGPT) 8L, Alkaline Phosphatase 94, C-Reactive Protein, Quantitative 0.7, Pro-B-Type Natriuretic Peptide > 04024H, Total Protein 6.9, Albumin 2.6L, Globulin 4.3, Albumin/Globulin Ratio 0.6L 11/14/20 05:57: POC Whole Blood Glucose 57L 11/14/20 06:40: POC Whole Blood Glucose 95 Current Medications Medications (Trade) Dose Ordered Sig/Yeimi Route PRN Reason Start Time Stop Time Status Last Admin Dose Admin Acetaminophen (Tylenol) 650 mg Q4H PRN ORAL Temp >100.5 10/27/20 14:15 11/26/20 14:14 11/05/20 17:22 Amlodipine Besylate (Norvasc) 5 mg DAILY ORAL 11/08/20 09:00 12/08/20 08:59 11/14/20 09:01 Citalopram Hydrobromide (CeleXA) 20 mg DAILY ORAL 10/29/20 09:00 11/28/20 08:59 11/14/20 09:00 Dextrose (Dextrose 50%) 25 ml Q30M PRN IV Hypoglycemia 10/28/20 20:45 01/26/21 20:44 Dextrose (Dextrose 50%) 50 ml Q30M PRN IV Hypoglycemia 10/28/20 20:45 01/26/21 20:44 Docusate Sodium (Colace) 100 mg TWICE A DAY ORAL 10/28/20 18:00 11/27/20 17:59 11/14/20 09:00 Haloperidol Lactate (Haldol) 5 mg Q6H PRN IM Agitation 10/28/20 15:45 12/12/20 15:44 Hydralazine HCl (Apresoline) 25 mg Q4H PRN ORAL For BP over 160 systolic 11/06/20 16:15 02/04/21 16:14 Hydralazine HCl (Apresoline) 25 mg Q6HR ORAL 11/07/20 18:00 02/05/21 17:59 11/14/20 06:02 Insulin Aspart (NovoLOG) BEFORE MEALS AND HS SUBQ 10/28/20 21:00 01/26/21 20:59 11/12/20 21:01 Insulin Detemir (Levemir) 10 units Q24H SUBQ 10/29/20 20:00 01/27/21 19:59 11/13/20 20:56 Megestrol Acetate (Megace) 400 mg DAILY ORAL 10/28/20 09:00 01/26/21 08:59 11/14/20 09:01 Pantoprazole (Protonix) 40 mg EVERY 12 HOURS ORAL 10/28/20 21:00 11/27/20 20:59 11/14/20 09:00 Sevelamer Carbonate (Renvela) 800 mg THREE TIMES A DAY ORAL 10/28/20 13:00 01/26/21 12:59 11/14/20 09:00 Assessment/Plan Assessment/Plan 1. COVID-19 pneumonia. - wean down oxygen as tolerated while keeping SaO2 >92%; currently on and off 2 L NC - CXR 10/27/2020 shows multifocal infiltrate. - abd US 11/12/2020 shows large left, and small right pleural effusion - s/p decadron - s/p ceftriaxone and azithromycin. - Repeat COVID-19 test 10/29/2020 positive - Repeat COVID-19 PCR 11/11 negative - now off respiratory isolation 2. Renal failure, on dialysis. - per renal 3. Congestive heart failure. - BNP >35,000 - 2D echo EF 35-40% - management per cardio 4. Right eye conjunctivitis. - improved 5. DVT ppx - D-dimer 3.08, CRP 16.1 -> 4.0 - 10/29/2020 venous ultrasound unremarkable - On SCD 6. hyperkalemia - per renal Abdominal tenderness - US of abd 11/12 Coarsened liver echogenicity, nonspecific but could indicate hepatocellular disease dc planning to SNF noted weaning off oxygen The care of this patient was discussed with my supervising physician Time spent for this encounter was approximately 31 minutes Zbigniew Serrano Nov 14, 2020 09:17 Naman Krause MD Nov 15, 2020 11:19
--- NOTE | 2020-11-14 09:26 | NUR ---
P.T Weekly Progress Notes: Pt was being seen this past week of skilled P.T . Pt responded poorly from tx due to multiple limitations as far as medical and poor ability to tolerate functional activities however has been cooperative on every tx session. Pt currently requires MAX A to total dependence in mobilities. Pt able to sit at the EOB with mod support and tolerating activities in sitting with MOD support. Overall poor activity tolerance. Will continue POC and progression of activities as tolerated. Recommend return to SNF when medically stable.
[2020-11-14] MEDS ORDERED: COLACE100 MG ORAL (09:35)
[2020-11-14] MEDS ORDERED: HYDRALAZINE HCL25 M1 ORAL (09:35)
[2020-11-14] MEDS ORDERED: PROTONIX20 MG ORAL (09:36)
[2020-11-14] MEDS ORDERED: CELEXA10 MG ORAL (09:38)
--- NOTE | 2020-11-14 09:55 | General Progress Note ---
Subjective Allergies: Coded Allergies: No Known Allergies (Unverified , 09/23/20) Subjective sob better awake eating better off isolation Objective Last 24 Hour Vital Signs Date Time Temp Pulse Resp B/P (MAP) Pulse Ox O2 Delivery O2 Flow Rate FiO2 11/14/20 09:01 87 153/69 11/14/20 08:00 98.2 87 18 153/69 (97) 100 11/14/20 06:02 135/68 11/14/20 04:00 97.9 87 20 135/68 (90) 100 11/14/20 01:00 148/69 11/14/20 00:00 97.9 79 20 148/69 (95) 100 11/13/20 21:00 Nasal Cannula 2.0 11/13/20 20:00 97.7 77 20 147/66 (93) 100 11/13/20 17:22 128/65 11/13/20 16:00 97.7 77 18 128/65 (86) 96 11/13/20 13:10 138/67 11/13/20 12:00 97.3 81 18 138/67 (90) 96 Intake and Output 11/13/20 11/14/20 19:00 07:00 Intake Total 480 ml Balance 480 ml Intake Oral 480 ml # Voids 2 # Bowel Movements 1 1 Laboratory Tests 11/13/20 11:40: POC Whole Blood Glucose 111H 11/13/20 16:52: POC Whole Blood Glucose 101 11/13/20 20:44: POC Whole Blood Glucose 127H 11/14/20 04:11: White Blood Count 10.6, Red Blood Count 3.34L, Hemoglobin 10.6L, Hematocrit 33.8L, Mean Corpuscular Volume 101H, Mean Corpuscular Hemoglobin 31.6H, Mean Corpuscular Hemoglobin Concent 31.2L, Red Cell Distribution Width 17.0H, Platelet Count 106L, Mean Platelet Volume 6.8, Neutrophils (%) (Auto) 71.9, Lymphocytes (%) (Auto) 12.9L, Monocytes (%) (Auto) 13.4H, Eosinophils (%) (Auto) 0.9, Basophils (%) (Auto) 0.9, Sodium Level 139, Potassium Level 4.7, Chloride Level 102, Carbon Dioxide Level 32, Anion Gap 5, Blood Urea Nitrogen 67H, Creatinine 6.0H, Estimat Glomerular Filtration Rate 6.8, Glucose Level 82, Calcium Level 8.4L, Phosphorus Level 5.5H, Magnesium Level 2.1, Total Bilirubin < 0.1L, Aspartate Amino Transf (AST/SGOT) 13L, Alanine Aminotransferase (ALT/SGPT) 8L, Alkaline Phosphatase 94, C-Reactive Protein, Quantitative 0.7, Pro-B-Type Natriuretic Peptide > 03051T, Total Protein 6.9, Albumin 2.6L, Globulin 4.3, Albumin/Globulin Ratio 0.6L 11/14/20 05:57: POC Whole Blood Glucose 57L 11/14/20 06:40: POC Whole Blood Glucose 95 Height (Feet): 5 Height (Inches): 1.00 Weight (Pounds): 92 General Appearance: alert Neck: supple Cardiovascular: regular rhythm Respiratory/Chest: normal breath sounds Abdomen: non tender, no organomegaly Assessment/Plan Status: not improved Assessment/Plan: 1 sob 2 covid pna cont isolation 3 chf diastolic acute 4 esrd on hd 5 failure of thrive 6 dementia 7 dm poory controlled due to steroids 8 hypotension 9 hyperkalemia rpt ok add levamier and high dose short insulin pt/ot eval dw pt pt is very weak id for evaluation for rpt covid for dc plan cardio and pulmonary consult off abx off isolation dc plan to Cesar Swanson MD Nov 14, 2020 09:55
[2020-11-14 12:00] VITALS: BP 133/66
--- NOTE | 2020-11-14 13:22 | Nephrology Progress Note ---
Assessment/Plan Problem List: (1) End stage renal disease on dialysis (2) C. difficile colitis (3) Transient hypotension (4) Diastolic CHF, chronic Assessment 75-year-old female presents with respiratory distress and COVID-19 infection Patient has end-stage renal disease and last dialyzed 4 days ago Patient presents with high potassium History of C. difficile colitis History of diabetes mellitus History of hypertension, presents with transient hypotension History of cardiomyopathy and diastolic CHF Plan November 14: Last dialysis November 12. Due for dialysis today. Labs reviewed. Medication list reviewed. Stable from renal standpoint of view. November 13: Dialyzed yesterday. Labs reviewed. Stable from renal standpoint of view. Next hemodialysis tomorrow. November 12: Due for dialysis today. No chemistry panel done today. Blood pressure stable. Continue per current management. November 11: Last dialysis November 09. No labs drawn today yet. We will order dialysis tomorrow. November 10: Patient was dialyzed yesterday. Potassium now within normal limit. Blood pressure stable. Continue same. November 09: Due for dialysis today. Labs reviewed. Potassium 5.6 which will b e corrected after dialysis. Will check repeat lab tomorrow. November 08: Dialyzed yesterday. Labs reviewed. Continue per consultants. Due for dialysis tomorrow. November 07: Due for dialysis today. Blood pressure medication adjusted. Will check lab tomorrow. November 06: Labs reviewed. Medication list reviewed. Will order dialysis for tomorrow. Continue per consultants. Hydralazine 25 mg as needed for high blood pressure ordered. November 05: Discussed with dialysis nurse. Patient was dialyzed late last night. However today's lab results suggestive of high BUN and creatinine. Serum potassium elevated but the repeat is normal. Will hold the Kayexalate. Will attempt another dialysis and order post BUN and creatinine. Reevaluation on November 05 at 3 PM: Stat BMP done as it appears this morning's lab was prior to dialysis even though it was marked 6 AM. The stat dialysis orders will be canceled based on new lab results. Will arrange for next dialysis on November 07 unless she needs it earlier. November 04: Patient due for dialysis today. Blood pressure stable. No UF is scheduled during dialysis. Check labs tomorrow. No can panel drawn today. November 03: Patient was dialyzed yesterday. Labs reviewed. Blood pressure mor e stable. Due for dialysis tomorrow. No ultrafiltration is ordered. November 02: Dialyzed today. Blood pressure 95 systolic. Parameters for BP medications. Patient asymptomatic. Albumin 25% 100 cc 1 bolus dose ordered. Continue rest. Discussed with RN. November 01: Dialyzed yesterday. Labs reviewed. Medication list reviewed. Blood pressure medication adjusted. Hemodialysis tomorrow. October 31: Due for dialysis today. No labs drawn today. Continue per consultants. Will check can panel tomorrow. Medication list reviewed. Blood pressure stable. October 30: Last dialyzed October 29. Due for dialysis October 31. Continue per consultants. October 29: Patient dialyzed last evening of October 27. Serum creatinine and electrolyte much improved Continue per current treatment plan Per orders Next dialysis today October 29 Check labs in a.m. Subjective ROS Limited/Unobtainable: No Constitutional: Reports: malaise, weakness Objective Objective Last 24 Hour Vital Signs Date Time Temp Pulse Resp B/P (MAP) Pulse Ox O2 Delivery O2 Flow Rate FiO2 11/14/20 12:00 98.5 77 18 133/66 (88) 98 11/14/20 09:01 87 153/69 11/14/20 09:00 Nasal Cannula 2.0 11/14/20 08:00 98.2 87 18 153/69 (97) 100 11/14/20 06:02 135/68 11/14/20 04:00 97.9 87 20 135/68 (90) 100 11/14/20 01:00 148/69 11/14/20 00:00 97.9 79 20 148/69 (95) 100 11/13/20 21:00 Nasal Cannula 2.0 11/13/20 20:00 97.7 77 20 147/66 (93) 100 11/13/20 17:22 128/65 11/13/20 16:00 97.7 77 18 128/65 (86) 96 Intake and Output 11/13/20 11/14/20 19:00 07:00 Intake Total 480 ml Balance 480 ml Intake Oral 480 ml # Voids 2 # Bowel Movements 1 1 Laboratory Tests 11/13/20 16:52: POC Whole Blood Glucose 101 11/13/20 20:44: POC Whole Blood Glucose 127H 11/14/20 04:11: White Blood Count 10.6, Red Blood Count 3.34L, Hemoglobin 10.6L, Hematocrit 33.8L, Mean Corpuscular Volume 101H, Mean Corpuscular Hemoglobin 31.6H, Mean Corpuscular Hemoglobin Concent 31.2L, Red Cell Distribution Width 17.0H, Platelet Count 106L, Mean Platelet Volume 6.8, Neutrophils (%) (Auto) 71.9, Lymphocytes (%) (Auto) 12.9L, Monocytes (%) (Auto) 13.4H, Eosinophils (%) (Auto) 0.9, Basophils (%) (Auto) 0.9, Sodium Level 139, Potassium Level 4.7, Chloride Level 102, Carbon Dioxide Level 32, Anion Gap 5, Blood Urea Nitrogen 67H, Creatinine 6.0H, Estimat Glomerular Filtration Rate 6.8, Glucose Level 82, Calci um Level 8.4L, Phosphorus Level 5.5H, Magnesium Level 2.1, Total Bilirubin < 0.1L, Aspartate Amino Transf (AST/SGOT) 13L, Alanine Aminotransferase (ALT/SGPT) 8L, Alkaline Phosphatase 94, C-Reactive Protein, Quantitative 0.7, Pro-B-Type Natriuretic Peptide > 57993N, Total Protein 6.9, Albumin 2.6L, Globulin 4.3, Albumin/Globulin Ratio 0.6L 11/14/20 05:57: POC Whole Blood Glucose 57L 11/14/20 06:40: POC Whole Blood Glucose 95 Height (Feet): 5 Height (Inches): 1.00 Weight (Pounds): 92 General Appearance: no apparent distress, lethargic Cardiovascular: normal rate Respiratory/Chest: decreased breath sounds Abdomen: distended Objective No change Chris Puckett MD Nov 14, 2020 13:22
--- NOTE | 2020-11-14 13:46 | NUR ---
NURSE NOTES: RN saw Lyle, Dialysis nurse during rounds. PEr Lyle she will do dialysis later on tonight. WIll follow up
--- NOTE | 2020-11-14 14:23 | Surgery Progress Note ---
Surgery Progress Note Subjective Symptoms: improved, tolerating diet, passing flatus Objective Last 24 Hour Vital Signs Date Time Temp Pulse Resp B/P (MAP) Pulse Ox O2 Delivery O2 Flow Rate FiO2 11/14/20 12:00 98.5 77 18 133/66 (88) 98 11/14/20 09:01 87 153/69 11/14/20 09:00 Nasal Cannula 2.0 11/14/20 08:00 98.2 87 18 153/69 (97) 100 11/14/20 06:02 135/68 11/14/20 04:00 97.9 87 20 135/68 (90) 100 11/14/20 01:00 148/69 11/14/20 00:00 97.9 79 20 148/69 (95) 100 11/13/20 21:00 Nasal Cannula 2.0 11/13/20 20:00 97.7 77 20 147/66 (93) 100 11/13/20 17:22 128/65 11/13/20 16:00 97.7 77 18 128/65 (86) 96 I&O Intake and Output 11/13/20 11/14/20 19:00 07:00 Intake Total 480 ml Balance 480 ml Intake Oral 480 ml # Voids 2 # Bowel Movements 1 1 Dressing: saturated Cardiovascular: RSR Respiratory: decreased breath sounds Abdomen: non-tender, present bowel sounds, non-distended Extremities: no tenderness, no cyanosis Laboratory Tests Test 11/13/20 16:52 11/13/20 20:44 11/14/20 04:11 11/14/20 05:57 POC Whole Blood Glucose 101 MG/DL (74-106) 127 MG/DL (74-106) H 57 MG/DL (74-106) L White Blood Count 10.6 K/UL (4.8-10.8) Red Blood Count 3.34 M/UL (4.20-5.40) L Hemoglobin 10.6 G/DL (12.0-16.0) L Hematocrit 33.8 % (37.0-47.0) L Mean Corpuscular Volume 101 FL (80-99) H Mean Corpuscular Hemoglobin 31.6 PG (27.0-31.0) H Mean Corpuscular Hemoglobin Concent 31.2 G/DL (32.0-36.0) L Red Cell Distribution Width 17.0 % (11.6-14.8) H Platelet Count 106 K/UL (150-450) L Mean Platelet Volume 6.8 FL (6.5-10.1) Neutrophils (%) (Auto) 71.9 % (45.0-75.0) Lymphocytes (%) (Auto) 12.9 % (20.0-45.0) L Monocytes (%) (Auto) 13.4 % (1.0-10.0) H Eosinophils (%) (Auto) 0.9 % (0.0-3.0) Basophils (%) (Auto) 0.9 % (0.0-2.0) Sodium Level 139 MMOL/L (136-145) Potassium Level 4.7 MMOL/L (3.5-5.1) Chloride Level 102 MMOL/L (98-107) Carbon Dioxide Level 32 MMOL/L (21-32) Anion Gap 5 mmol/L (5-15) Blood Urea Nitrogen 67 mg/dL (7-18) H Creatinine 6.0 MG/DL (0.55-1.30) H Estimat Glomerular Filtration Rate 6.8 mL/min (>60) Glucose Level 82 MG/DL (74-106) Calcium Level 8.4 MG/DL (8.5-10.1) L Phosphorus Level 5.5 MG/DL (2.5-4.9) H Magnesium Level 2.1 MG/DL (1.8-2.4) Total Bilirubin < 0.1 MG/DL (0.2-1.0) L Aspartate Amino Transf (AST/SGOT) 13 U/L (15-37) L Alanine Aminotransferase (ALT/SGPT) 8 U/L (12-78) L Alkaline Phosphatase 94 U/L (46-116) C-Reactive Protein, Quantitative 0.7 mg/dL (0.00-0.90) Pro-B-Type Natriuretic Peptide > 43514 pg/mL (0-125) H Total Protein 6.9 G/DL (6.4-8.2) Albumin 2.6 G/DL (3.4-5.0) L Globulin 4.3 g/dL Albumin/Globulin Ratio 0.6 (1.0-2.7) L Test 11/14/20 06:40 POC Whole Blood Glucose 95 MG/DL (74-106) Plan Problems: (1) Decubitus skin ulcer Assessment & Plan: Pt presented on admission with multiple Pressure Injuries. DTPI Sacrum(L)8cm x (W)8cm. Base of wound is purpuric with surrounding non- Blanchable erythema. Darker skin tone without erythema or induration periwound. Pt complained at site of DTPI when minimally palpated. Non-Blanchable erythema without induration R Ischium(L)7cm x (W)7.5cm. L Heel is boggy with non-Blanchable erythema. R heel is Boggy with non-blanchable erythema. Tx.Plan: Apply Moisture Barrier Paste to Sacrum. Cover with Optifoam drsg. Change every 3 days and prn.. Apply Moisture Barrier Paste to R and L Ischial tuberosities. Cover each Ischium with Optifoam drsgs. Change every 3 days and prn. Apply Cavilon Skin Barrier to R and L Heels and each Malleoli. Cover each site with Optifoam drsgs. Change every 7 days and prn. Cover Bony prominences as needed with Optifoam drsgs. Reposition at least every 2 hours or as tolerated. Off-load heels with Pillow. (2) Dyspnea (3) Respiratory distress (4) Pneumonia due to COVID-19 virus Assessment & Plan: ++ on tx id and pulm input appreciated limited movement will need to be cautions to ensure not worsening decub (5) Hypoglycemia (6) End stage renal disease on dialysis (7) Transient hypotension (8) Diastolic CHF, chronic (9) C. difficile colitis (10) Diarrhea Assessment & Plan: DAILY ESTIMATED NEEDS: Needs based on ESRD on HD 42kg 30-40 kcals/kg [id number] total kcals 1.25-1.8 g protein/kg 53-76 g total protein Fluid per MD, on HD NUTRITION DIAGNOSIS: Increased kcal and pro needs r/t renal dysfunction, wound healing as evidenced by pt w/ ESRD on HD, admitted w/ wounds, including sacral DTPI. CURRENT DIET:Renal diet PO DIET RECOMMENDATIONS: Renal + CCHO MED diet/ texture per MANAGER MERCHANDISING ADDITIONAL RECOMMENDATIONS: 1) Daily wts, calibrated bed scale 2) Rec MANAGER MERCHANDISING eval for appropriate texture 3) Add NEPRO QD (425kcal/19g prot), monitor need for additional 4) Monitor for hypoglycemia (BG 68 this am) -> DC or LOWER LEVEMIR @ [facility]- pt now w/ improved BG, hypoglycemic episodes 5) Wound healing: Nephrovite x 1, ZnSO4 220mg QD x 10 days Abdirahman BID as tolerated (11) ESRD (end stage renal disease) (12) Altered mental status (13) Pneumonia Kurt Flores Nov 14, 2020 14:23
[2020-11-14 16:00] VITALS: BP 127/63
--- NOTE | 2020-11-14 19:35 | NUR ---
NURSE HAND-OFF: Important Events on Shift: dialysis on going Patient Status: stable Diet: renal Pending Orders: n/a Pending Results/Labs:n/a Pending MD notification:n/a Latest Vital Signs: Temperature 98.0 , Pulse 79 , B/P 127 /63 , Respiratory Rate 17 , O2 SAT 98 , Nasal Cannula, O2 Flow Rate 2.0 . Vital Sign Comment: stable Latest Ness Fall Score: 50 Fall Risk: High Risk Safety Measures: Call light Within Reach, Bed Alarm Zone 1, Side Rails Side Rails x2, Bed position Low and Locked. Fall Precautions: Yellow Socks Yellow Gown Door Sign Patient Fall Education Report given to . Addendum: 11/14/20 at 1945 by Lucian Motley RN report given to ZENAIDA Yancey
[2020-11-14 20:00] VITALS: BP 132/64
--- NOTE | 2020-11-14 20:00 | NUR ---
NURSE NOTES: RECEIVED PATIENT LYING IN BED, AWAKE, HEMODIALYSIS ONGOING VIA LEFT SUBCLAVIAN PERMACATH, TOLERATING WELL, VITALS STABLE. ALERT/ORIENTED TO PERSON/PLACE. DENIES PAIN. NO SIGNS AND SYMPTOMS OF ACUTE CARDIO RESPIRATORY DISTRESS/SHORTNESS OF BREATH, NO PERIPHERAL EDEMA NOTED. IV INTACT TO RIGHT HAND/GAUGE 20, SALINE LOCK. DENIES GI DISCOMFORT, NO N/V/D. SIDE RAILS UP X3, BED IN LOWEST POSITION FOR SAFETY, ENCOURAGED PATIENT TO UTILIZE CALL LIGHT FOR ASSISTANCE, VERBALIZED UNDERSTANDING. DROPLET PRECAUTIONS OBSERVED AT ALL TIMES. REPOSITIONED FOR COMFORT/PRESSURE RELIEF, NOTED WITH OPTIFOAM TO SACRAL/HEELS/BILATERAL HIPS. FREQUENT ROUNDING FOR SAFETY/NEEDS. CONTINUE WITH CURRENT PLAN OF CARE. NAD.
--- NOTE | 2020-11-14 21:24 | Cardiology Progress Note ---
Assessment/Plan Status Narrative 1. COVID-19 viral PNA low grade fever, improved antiviral tx per ID 2. HFrEF, acute on chronic systolic on diastolic HF with EF 35-40% BNP severely elevated Fluid balance with HD Troponin negative Good O2 perfusion 3. ESRD on HD Aneuric Microfiltration for fluid balance 4. HTN - under better control 5. Mitral regurgitation - mod-severe contributing to severity of HF 6. possible ASD with L to R shunt 7. Sinus tachycardia 2/2 viral PNA and fever rate controlled, in SR 8. Anemia of chronic disease 9. Respiratory failure - O2 dependent Fluid balance with HD, still in fluid overload, BNP severely elevated. Tx for viral PNA per ID. In SR, rate and SBP controlled. Subjective ROS Limited/Unobtainable: Yes Cardiovascular: Reports: no symptoms Respiratory: Reports: shortness of breath Gastrointestinal/Abdominal: Reports: poor appetite Genitourinary: Reports: no symptoms Subjective SBP and HR in normal territory, good O2 perfusion on O2 NC Objective Last 24 Hour Vital Signs Date Time Temp Pulse Resp B/P (MAP) Pulse Ox O2 Delivery O2 Flow Rate FiO2 11/14/20 16:00 98.0 79 17 127/63 (84) 98 11/14/20 12:00 98.5 77 18 133/66 (88) 98 11/14/20 09:01 87 153/69 11/14/20 09:00 Nasal Cannula 2.0 11/14/20 08:00 98.2 87 18 153/69 (97) 100 11/14/20 06:02 135/68 11/14/20 04:00 97.9 87 20 135/68 (90) 100 11/14/20 01:00 148/69 11/14/20 00:00 97.9 79 20 148/69 (95) 100 General Appearance: no apparent distress EENT: PERRL/EOMI Neck: no JVD Rhythm: NSR Cardiovascular: normal rate Respiratory/Chest: no accessory muscle use Intake and Output 11/13/20 11/14/20 19:00 07:00 Intake Total 480 ml Balance 480 ml Intake Oral 480 ml # Voids 2 # Bowel Movements 1 1 Laboratory Tests Test 11/14/20 04:11 11/14/20 05:57 11/14/20 06:40 White Blood Count 10.6 K/UL (4.8-10.8) Red Blood Count 3.34 M/UL (4.20-5.40) L Hemoglobin 10.6 G/DL (12.0-16.0) L Hematocrit 33.8 % (37.0-47.0) L Mean Corpuscular Volume 101 FL (80-99) H Mean Corpuscular Hemoglobin 31.6 PG (27.0-31.0) H Mean Corpuscular Hemoglobin Concent 31.2 G/DL (32.0-36.0) L Red Cell Distribution Width 17.0 % (11.6-14.8) H Platelet Count 106 K/UL (150-450) L Mean Platelet Volume 6.8 FL (6.5-10.1) Neutrophils (%) (Auto) 71.9 % (45.0-75.0) Lymphocytes (%) (Auto) 12.9 % (20.0-45.0) L Monocytes (%) (Auto) 13.4 % (1.0-10.0) H Eosinophils (%) (Auto) 0.9 % (0.0-3.0) Basophils (%) (Auto) 0.9 % (0.0-2.0) Sodium Level 139 MMOL/L (136-145) Potassium Level 4.7 MMOL/L (3.5-5.1) Chloride Level 102 MMOL/L (98-107) Carbon Dioxide Level 32 MMOL/L (21-32) Anion Gap 5 mmol/L (5-15) Blood Urea Nitrogen 67 mg/dL (7-18) H Creatinine 6.0 MG/DL (0.55-1.30) H Estimat Glomerular Filtration Rate 6.8 mL/min (>60) Glucose Level 82 MG/DL (74-106) Calcium Level 8.4 MG/DL (8.5-10.1) L Phosphorus Level 5.5 MG/DL (2.5-4.9) H Magnesium Level 2.1 MG/DL (1.8-2.4) Total Bilirubin < 0.1 MG/DL (0.2-1.0) L Aspartate Amino Transf (AST/SGOT) 13 U/L (15-37) L Alanine Aminotransferase (ALT/SGPT) 8 U/L (12-78) L Alkaline Phosphatase 94 U/L (46-116) C-Reactive Protein, Quantitative 0.7 mg/dL (0.00-0.90) Pro-B-Type Natriuretic Peptide > 99550 pg/mL (0-125) H Total Protein 6.9 G/DL (6.4-8.2) Albumin 2.6 G/DL (3.4-5.0) L Globulin 4.3 g/dL Albumin/Globulin Ratio 0.6 (1.0-2.7) L POC Whole Blood Glucose 57 MG/DL (74-106) L 95 MG/DL (74-106) Pamela Chowdhury PA-C Nov 14, 2020 21:24
[2020-11-14] MEDS: Levemir Flexpen SUBQ SCH (22:44)
[2020-11-15] MEDS: HydrALAZINE 25mg tab ORAL SCH ×4 (00:41→17:16)
[2020-11-15 04:00] VITALS: BP 149/71
[2020-11-15] MEDS: NovoLOG Insulin Flexpen SUBQ SCH ×4 (06:30→21:00)
--- NOTE | 2020-11-15 07:07 | NUR ---
NURSE NOTES: Received report from ZENAIDA Yancey. Patient seen in bed AAOx3, eating breakfast at this time. tolerates meals well. no aspiration and coughing noted while eating. Patient on O2@ 2l/min via NC, breathing is even and unlabored with no SOB noted at this time. HOB elevated. no acute distress noted at this time. Left AV fistula in place. no redness and tenderness noted on site. Bed is locked and placed in lowest position with bed alarm on. call light within reach. will continue to monitor
[2020-11-15 08:00] VITALS: BP 136/69
--- NOTE | 2020-11-15 08:09 | NUR ---
NURSE HAND-OFF: Important Events on Shift:[UNEVENTFUL NIGHT] Patient Status: [STABLE] Diet: [RENAL] Pending Orders: [N/A] Pending Results/Labs:[] Pending MD notification:[] Latest Vital Signs: Temperature 98.3 , Pulse 79 , B/P 153 /79 , Respiratory Rate 18 , O2 SAT 99 , Nasal Cannula, O2 Flow Rate 2.0 . Vital Sign Comment: [STABLE, AFEBRILE Latest Ness Fall Score: 50 Fall Risk: High Risk Safety Measures: Call light Within Reach, Bed Alarm Zone 1, Side Rails Side Rails x2, Bed position Low and Locked. Fall Precautions: Yellow Socks Yellow Gown Door Sign Patient Fall Education Report given to [EZNAIDA WU].
[2020-11-15] MEDS: Citalopram Hydrobromide 10mg Tab ORAL SCH (08:52)
[2020-11-15] MEDS: Megace 400mg/10ml Susp ORAL SCH (08:52)
[2020-11-15] MEDS: Docusate 100mg cap ORAL SCH ×2 (08:52→17:16)
--- NOTE | 2020-11-15 09:06 | Pulmonology Progress Note ---
Subjective ROS Limited/Unobtainable: Yes Interval Events: s/p dialysis, 2 L removed Constitutional: Denies: fever, chills HEENT: Repors: no symptoms Respiratory: Reports: no symptoms Cardiovascular: Reports: no symptoms Gastrointestinal/Abdominal: Denies: nausea, vomiting, diarrhea Musculoskeletal: Denies: pain Allergies: Coded Allergies: No Known Allergies (Unverified , 09/23/20) Objective Last 24 Hour Vital Signs Date Time Temp Pulse Resp B/P (MAP) Pulse Ox O2 Delivery O2 Flow Rate FiO2 11/15/20 08:52 79 136/69 11/15/20 08:00 97.7 79 17 136/69 (91) 99 11/15/20 05:57 153/79 11/15/20 04:00 98.3 79 18 149/71 (97) 99 11/15/20 00:41 145/71 11/14/20 21:00 Nasal Cannula 2.0 11/14/20 20:00 97.9 84 18 132/64 (86) 99 11/14/20 16:00 98.0 79 17 127/63 (84) 98 11/14/20 12:00 98.5 77 18 133/66 (88) 98 Intake and Output 11/14/20 11/15/20 19:00 07:00 Intake Total 290 ml 240 ml Balance 290 ml 240 ml Intake Oral 290 ml 240 ml # Voids 1 # Bowel Movements 1 Objective 11/15 now on room air saturating 95-96% 11/13 s/p dialysis, 2L removed; saturating well on 2L NC 11/12 due for dialysis and abd US today, NPO 11/11 no change 11/10 s/p dialysis; 1.6L removed; saturating well on 2 lpm NC 11/09 due for dialysis today; continues to saturate well on 2 lpm NC 11/08 s/p dialysis; saturating well on 2 lpm NC 11/07/2020 s/p dialysis 11/06/2020 pt being seen by PT; saturating well on 2 lpm NC; due for dialysis today 11/05/2020 pt asleep; s/p dialysis; saturating well on 2 lpm NC 11/04/2020 pt asleep; saturating well on 2 lpm NC; NAD 11/03/2020 saturating well on 2 lpm NC; eating in bed; NAD 11/02/2020 saturating well on 1 lpm NC; s/p dialysis 11/01/2020 saturating well on 1 lpm NC 10/31/2020 patient alert; saturating well on 1 lpm NC 10/30/2020 pt asleep; saturating well on low flow oxygen 10/29/2020 pt asleep in bed; saturating well on low flow oxygen General Appearance: other - thin HEENT: normocephalic, atraumatic Respiratory: chest wall non-tender, rhonchi - bilaterally, other - dialysis catheter Cardiovascular: normal rate, regular rhythm Abdomen: soft, non tender Laboratory Tests 11/15/20 05:56: POC Whole Blood Glucose [Pending] Current Medications Medications (Trade) Dose Ordered Sig/Yeimi Route PRN Reason Start Time Stop Time Status Last Admin Dose Admin Acetaminophen (Tylenol) 650 mg Q4H PRN ORAL Temp >100.5 10/27/20 14:15 11/26/20 14:14 11/05/20 17:22 Amlodipine Besylate (Norvasc) 5 mg DAILY ORAL 11/08/20 09:00 12/08/20 08:59 11/15/20 08:52 Citalopram Hydrobromide (CeleXA) 20 mg DAILY ORAL 10/29/20 09:00 11/28/20 08:59 11/15/20 08:52 Dextrose (Dextrose 50%) 25 ml Q30M PRN IV Hypoglycemia 10/28/20 20:45 01/26/21 20:44 Dextrose (Dextrose 50%) 50 ml Q30M PRN IV Hypoglycemia 10/28/20 20:45 01/26/21 20:44 Docusate Sodium (Colace) 100 mg TWICE A DAY ORAL 10/28/20 18:00 11/27/20 17:59 11/15/20 08:52 Haloperidol Lactate (Haldol) 5 mg Q6H PRN IM Agitation 10/28/20 15:45 12/12/20 15:44 Hydralazine HCl (Apresoline) 25 mg Q4H PRN ORAL For BP over 160 systolic 11/06/20 16:15 02/04/21 16:14 Hydralazine HCl (Apresoline) 25 mg Q6HR ORAL 11/07/20 18:00 02/05/21 17:59 11/15/20 05:57 Insulin Aspart (NovoLOG) BEFORE MEALS AND HS SUBQ 10/28/20 21:00 01/26/21 20:59 11/12/20 21:01 Insulin Detemir (Levemir) 10 units Q24H SUBQ 10/29/20 20:00 01/27/21 19:59 11/14/20 22:44 Megestrol Acetate (Megace) 400 mg DAILY ORAL 10/28/20 09:00 01/26/21 08:59 11/15/20 08:52 Pantoprazole (Protonix) 40 mg EVERY 12 HOURS ORAL 10/28/20 21:00 11/27/20 20:59 11/15/20 08:52 Sevelamer Carbonate (Renvela) 800 mg THREE TIMES A DAY ORAL 10/28/20 13:00 01/26/21 12:59 11/15/20 08:52 Assessment/Plan Assessment/Plan 1. COVID-19 pneumonia. - CXR 10/27/2020 shows multifocal infiltrate. - abd US 11/12/2020 shows large left, and small right pleural effusion - s/p decadron - s/p ceftriaxone and azithromycin. - Repeat COVID-19 test 10/29/2020 positive - Repeat COVID-19 PCR 11/11 negative - now off respiratory isolation - currently on room air saturating at 95-96%; cont monitor SaO2 2. Renal failure, on dialysis. - per renal 3. Congestive heart failure. - BNP >35,000 - 2D echo EF 35-40% - management per cardio 4. Right eye conjunctivitis. - improved 5. DVT ppx - D-dimer 3.08, CRP 16.1 -> 4.0 - 10/29/2020 venous ultrasound unremarkable - On SCD 6. hyperkalemia - per renal Abdominal tenderness - US of abd 11/12 Coarsened liver echogenicity, nonspecific but could indicate hepatocellular disease dc planning to SNF noted Currently on room air saturating at 95-96% The care of this patient was discussed with my supervising physician Time spent for this encounter was approximately 31 minutes Zbiginew Serrano Nov 15, 2020 09:06 Naman Krause MD Nov 15, 2020 11:20
--- NOTE | 2020-11-15 11:41 | Surgery Progress Note ---
Surgery Progress Note Subjective Additional Comments no acute events Objective Last 24 Hour Vital Signs Date Time Temp Pulse Resp B/P (MAP) Pulse Ox O2 Delivery O2 Flow Rate FiO2 11/15/20 09:00 Nasal Cannula 2.0 11/15/20 08:52 79 136/69 11/15/20 08:00 97.7 79 17 136/69 (91) 99 11/15/20 05:57 153/79 11/15/20 04:00 98.3 79 18 149/71 (97) 99 11/15/20 00:41 145/71 11/14/20 21:00 Nasal Cannula 2.0 11/14/20 20:00 97.9 84 18 132/64 (86) 99 11/14/20 16:00 98.0 79 17 127/63 (84) 98 11/14/20 12:00 98.5 77 18 133/66 (88) 98 I&O Intake and Output 11/14/20 11/15/20 19:00 07:00 Intake Total 290 ml 240 ml Balance 290 ml 240 ml Intake Oral 290 ml 240 ml # Voids 1 # Bowel Movements 1 Dressing: saturated Cardiovascular: RSR Respiratory: decreased breath sounds Abdomen: soft, non-tender, present bowel sounds Extremities: no tenderness, no cyanosis Laboratory Tests Test 11/15/20 05:56 11/15/20 11:24 POC Whole Blood Glucose Pending 105 MG/DL (74-106) Plan Problems: (1) Decubitus skin ulcer Assessment & Plan: Pt presented on admission with multiple Pressure Injuries. DTPI Sacrum(L)8cm x (W)8cm. Base of wound is purpuric with surrounding non- Blanchable erythema. Darker skin tone without erythema or induration periwound. Pt complained at site of DTPI when minimally palpated. Non-Blanchable erythema without induration R Ischium(L)7cm x (W)7.5cm. L Heel is boggy with non-Blanchable erythema. R heel is Boggy with non-blanchable erythema. Tx.Plan: Apply Moisture Barrier Paste to Sacrum. Cover with Optifoam drsg. Change every 3 days and prn.. Apply Moisture Barrier Paste to R and L Ischial tuberosities. Cover each Ischium with Optifoam drsgs. Change every 3 days and prn. Apply Cavilon Skin Barrier to R and L Heels and each Malleoli. Cover each site with Optifoam drsgs. Change every 7 days and prn. Cover Bony prominences as needed with Optifoam drsgs. Reposition at least every 2 hours or as tolerated. Off-load heels with Pillow. (2) Dyspnea (3) Respiratory distress (4) Pneumonia due to COVID-19 virus Assessment & Plan: ++ on tx id and pulm input appreciated limited movement will need to be cautions to ensure not worsening decub (5) Hypoglycemia (6) End stage renal disease on dialysis (7) Transient hypotension (8) Diastolic CHF, chronic (9) C. difficile colitis (10) Diarrhea Assessment & Plan: DAILY ESTIMATED NEEDS: Needs based on ESRD on HD 42kg 30-40 kcals/kg 5469-9100 total kcals 1.25-1.8 g protein/kg 53-76 g total protein Fluid per MD, on HD NUTRITION DIAGNOSIS: Increased kcal and pro needs r/t renal dysfunction, wound healing as evidenced by pt w/ ESRD on HD, admitted w/ wounds, including sacral DTPI. CURRENT DIET:Renal diet PO DIET RECOMMENDATIONS: Renal + [facility] diet/ texture per IT INTERN ADDITIONAL RECOMMENDATIONS: 1) Daily wts, calibrated bed scale 2) Rec IT INTERN eval for appropriate texture 3) Add NEPRO QD (425kcal/19g prot), monitor need for additional 4) Monitor for hypoglycemia (BG 68 this am) -> DC or LOWER LEVEMIR @ QHS- pt now w/ improved BG, hypoglycemic episodes 5) Wound healing: Nephrovite x 1, ZnSO4 220mg QD x 10 days Abdirahman BID as tolerated (11) ESRD (end stage renal disease) (12) Altered mental status (13) Pneumonia Kurt Flores Nov 15, 2020 11:41
[2020-11-15 12:00] VITALS: BP 122/59
--- NOTE | 2020-11-15 13:21 | NUR ---
NURSE NOTES: SEEN Dr. Swanson during rounds. RN was instructed to put discharge order back to SNF and to continue hospital medication. carried out orders
[2020-11-15] MEDS ORDERED: ACETAMINOPHEN325 M1 ORAL ×2 (13:39→13:40)
[2020-11-15] MEDS ORDERED: AMLODIPINE BESYL5 MG ORAL (13:43)
[2020-11-15] MEDS ORDERED: CITALOPRAM HBR10 M1 ORAL (13:44)
[2020-11-15] MEDS ORDERED: MEGESTROL400 MG/11 PO (13:47)
--- NOTE | 2020-11-15 13:47 | General Progress Note ---
Subjective Allergies: Coded Allergies: No Known Allergies (Unverified , 09/23/20) Subjective sob better awake eating better off isolation Objective Last 24 Hour Vital Signs Date Time Temp Pulse Resp B/P (MAP) Pulse Ox O2 Delivery O2 Flow Rate FiO2 11/15/20 12:23 136/69 11/15/20 12:00 97.3 79 18 122/59 (80) 95 11/15/20 09:00 Nasal Cannula 2.0 11/15/20 08:52 79 136/69 11/15/20 08:00 97.7 79 17 136/69 (91) 99 11/15/20 05:57 153/79 11/15/20 04:00 98.3 79 18 149/71 (97) 99 11/15/20 00:41 145/71 11/14/20 21:00 Nasal Cannula 2.0 11/14/20 20:00 97.9 84 18 132/64 (86) 99 11/14/20 16:00 98.0 79 17 127/63 (84) 98 Intake and Output 11/14/20 11/15/20 19:00 07:00 Intake Total 290 ml 240 ml Output Total 2000 ml Balance 290 ml -1760 ml Intake Oral 290 ml 240 ml Hemodialysis UF 2000 ml # Voids 1 # Bowel Movements 1 Laboratory Tests 11/15/20 05:56: POC Whole Blood Glucose [Pending] 11/15/20 11:24: POC Whole Blood Glucose 105 Height (Feet): 5 Height (Inches): 1.00 Weight (Pounds): 92 General Appearance: alert EENT: PERRL/EOMI Neck: supple Cardiovascular: regular rhythm Respiratory/Chest: lungs clear Abdomen: non tender, soft Extremities: non-tender Assessment/Plan Status: not improved Assessment/Plan: 1 sob 2 covid pna cont isolation 3 chf diastolic acute 4 esrd on hd 5 failure of thrive 6 dementia 7 dm poory controlled due to steroids 8 hypotension 9 hyperkalemia rpt ok add levamier and high dose short insulin pt/ot eval dw pt pt is very weak id for evaluation for rpt covid for dc plan cardio and pulmonary consult off abx off isolation dc plan to [facility] Cesar Swanson MD Nov 15, 2020 13:47
--- NOTE | 2020-11-15 14:33 | Nephrology Progress Note ---
Assessment/Plan Problem List: (1) End stage renal disease on dialysis (2) C. difficile colitis (3) Transient hypotension (4) Diastolic CHF, chronic Assessment 75-year-old female presents with respiratory distress and COVID-19 infection Patient has end-stage renal disease and last dialyzed 4 days ago Patient presents with high potassium History of C. difficile colitis History of diabetes mellitus History of hypertension, presents with transient hypotension History of cardiomyopathy and diastolic CHF Plan November 15: Dialyzed yesterday. 2 L removed. No labs drawn today. We will continue to monitor her renal parameters and dialysis as needed. November 14: Last dialysis November 12. Due for dialysis today. Labs reviewed. Medication list reviewed. Stable from renal standpoint of view. November 13: Dialyzed yesterday. Labs reviewed. Stable from renal standpoint of view. Next hemodialysis tomorrow. November 12: Due for dialysis today. No chemistry panel done today. Blood pressure stable. Continue per current management. November 11: Last dialysis November 09. No labs drawn today yet. We will order dialysis tomorrow. November 10: Patient was dialyzed yesterday. Potassium now within normal limit. Blood pressure stable. Continue same. November 09: Due for dialysis today. Labs reviewed. Potassium 5.6 which will be corrected after dialysis. Will check repeat lab tomorrow. November 08: Dialyzed yesterday. Labs reviewed. Continue per consultants. Due for dialysis tomorrow. November 07: Due for dialysis today. Blood pressure medication adjusted. Will check lab tomorrow. November 06: Labs reviewed. Medication list reviewed. Will order dialysis for tomorrow. Continue per consultants. Hydralazine 25 mg as needed for high blood pressure ordered. November 05: Discussed with dialysis nurse. Patient was dialyzed late last night. However today's lab results suggestive of high BUN and creatinine. Serum potassium elevated but the repeat is normal. Will hold the Kayexalate. Will attempt another dialysis and order post BUN and creatinine. Reevaluation on November 05 at 3 PM: Stat BMP done as it appears this morning's lab was prior to dialysis even though it was marked 6 AM. The stat dialysis orders will be canceled based on new lab results. Will arrange for next dialysis on November 07 unless she needs it earlier. November 04: Patient due for dialysis today. Blood pressure stable. No UF is scheduled during dialysis. Check labs tomorrow. No can panel drawn today. November 03: Patient was dialyzed yesterday. Labs reviewed. Blood pressure more stable. Due for dialysis tomorrow. No ultrafiltration is ordered. November 02: Dialyzed today. Blood pressure 95 systolic. Parameters for BP medications. Patient asymptomatic. Albumin 25% 100 cc 1 bolus dose ordered. Continue rest. Discussed with RN. November 01: Dialyzed yesterday. Labs reviewed. Medication list reviewed. Blood pressure medication adjusted. Hemodialysis tomorrow. October 31: Due for dialysis today. No labs drawn today. Continue per consultants. Will check can panel tomorrow. Medication list reviewed. Blood pressure stable. October 30: Last dialyzed October 29. Due for dialysis October 31. Continue per consultants. October 29: Patient dialyzed last evening of October 27. Serum creatinine and electrolyte much improved Continue per current treatment plan Per orders Next dialysis today October 29 Check labs in a.m. Subjective ROS Limited/Unobtainable: No Constitutional: Reports: malaise Objective Objective Last 24 Hour Vital Signs Date Time Temp Pulse Resp B/P (MAP) Pulse Ox O2 Delivery O2 Flow Rate FiO2 11/15/20 12:23 136/69 11/15/20 12:00 97.3 79 18 122/59 (80) 95 11/15/20 09:00 Nasal Cannula 2.0 11/15/20 08:52 79 136/69 11/15/20 08:00 97.7 79 17 136/69 (91) 99 11/15/20 05:57 153/79 11/15/20 04:00 98.3 79 18 149/71 (97) 99 11/15/20 00:41 145/71 11/14/20 21:00 Nasal Cannula 2.0 11/14/20 20:00 97.9 84 18 132/64 (86) 99 11/14/20 16:00 98.0 79 17 127/63 (84) 98 Intake and Output 11/14/20 11/15/20 19:00 07:00 Intake Total 290 ml 240 ml Output Total 2000 ml Balance 290 ml -1760 ml Intake Oral 290 ml 240 ml Hemodialysis UF 2000 ml # Voids 1 # Bowel Movements 1 Laboratory Tests 11/15/20 05:56: POC Whole Blood Glucose [Pending] 11/15/20 11:24: POC Whole Blood Glucose 105 Height (Feet): 5 Height (Inches): 1.00 Weight (Pounds): 92 General Appearance: no apparent distress, lethargic Cardiovascular: normal rate Respiratory/Chest: decreased breath sounds Abdomen: soft Objective No change Chris Puckett MD Nov 15, 2020 14:32
[2020-11-15 16:00] VITALS: BP 135/76
--- NOTE | 2020-11-15 17:25 | Infectious Diseases Prog Note ---
Assessment/Plan Assessment/Plan A 1. COVID-19 pneumonia s/p ivermectin 2. Renal failure, on dialysis. 3. Congestive heart failure. 4. Right eye conjunctivitis 5. hypertension 6. Hypoxemia P 1. Finished Decadron course 2. Discontinue isolation Subjective ROS Limited/Unobtainable: Yes Allergies: Coded Allergies: No Known Allergies (Unverified , 09/23/20) Objective Last 24 Hour Vital Signs Date Time Temp Pulse Resp B/P (MAP) Pulse Ox O2 Delivery O2 Flow Rate FiO2 11/15/20 17:16 135/76 11/15/20 16:00 98.3 83 18 135/76 (95) 97 11/15/20 12:23 136/69 11/15/20 12:00 97.3 79 18 122/59 (80) 95 11/15/20 09:00 Nasal Cannula 2.0 11/15/20 08:52 79 136/69 11/15/20 08:00 97.7 79 17 136/69 (91) 99 11/15/20 05:57 153/79 11/15/20 04:00 98.3 79 18 149/71 (97) 99 11/15/20 00:41 145/71 11/14/20 21:00 Nasal Cannula 2.0 11/14/20 20:00 97.9 84 18 132/64 (86) 99 Height (Feet): 5 Height (Inches): 1.00 Weight (Pounds): 92 General Appearance: no acute distress HEENT: mucous membranes moist Respiratory/Chest: lungs clear Cardiovascular: normal rate Abdomen: soft, non tender Extremities: no edema Neurologic/Psychiatric: alert, responsive Laboratory Tests Test 11/15/20 05:56 11/15/20 11:24 POC Whole Blood Glucose Pending 105 MG/DL (74-106) Current Medications Medications (Trade) Dose Ordered Sig/Yeimi Route PRN Reason Start Time Stop Time Status Last Admin Dose Admin Acetaminophen (Tylenol) 650 mg Q4H PRN ORAL Temp >100.5 10/27/20 14:15 11/26/20 14:14 11/05/20 17:22 Amlodipine Besylate (Norvasc) 5 mg DAILY ORAL 11/08/20 09:00 12/08/20 08:59 11/15/20 08:52 Citalopram Hydrobromide (CeleXA) 20 mg DAILY ORAL 10/29/20 09:00 11/28/20 08:59 11/15/20 08:52 Dextrose (Dextrose 50%) 25 ml Q30M PRN IV Hypoglycemia 10/28/20 20:45 01/26/21 20:44 Dextrose (Dextrose 50%) 50 ml Q30M PRN IV Hypoglycemia 10/28/20 20:45 01/26/21 20:44 Docusate Sodium (Colace) 100 mg TWICE A DAY ORAL 10/28/20 18:00 11/27/20 17:59 11/15/20 17:16 Haloperidol Lactate (Haldol) 5 mg Q6H PRN IM Agitation 10/28/20 15:45 12/12/20 15:44 Hydralazine HCl (Apresoline) 25 mg Q4H PRN ORAL For BP over 160 systolic 11/06/20 16:15 02/04/21 16:14 Hydralazine HCl (Apresoline) 25 mg Q6HR ORAL 11/07/20 18:00 02/05/21 17:59 11/15/20 17:16 Insulin Aspart (NovoLOG) BEFORE MEALS AND HS SUBQ 10/28/20 21:00 01/26/21 20:59 11/12/20 21:01 Insulin Detemir (Levemir) 10 units Q24H SUBQ 10/29/20 20:00 01/27/21 19:59 11/14/20 22:44 Megestrol Acetate (Megace) 400 mg DAILY ORAL 10/28/20 09:00 01/26/21 08:59 11/15/20 08:52 Pantoprazole (Protonix) 40 mg EVERY 12 HOURS ORAL 10/28/20 21:00 11/27/20 20:59 11/15/20 08:52 Sevelamer Carbonate (Renvela) 800 mg THREE TIMES A DAY ORAL 10/28/20 13:00 01/26/21 12:59 11/15/20 17:16 Aryan Darby MD Nov 15, 2020 17:25
--- NOTE | 2020-11-15 19:38 | NUR ---
HAND-OFF: Report given to ZENAIDA Yancey.
[2020-11-15 20:00] VITALS: BP 141/72
--- NOTE | 2020-11-15 20:00 | NUR ---
NURSE NOTES: RECEIVED PATIENT LYING IN BED, AWAKE, ALERT/ORIENTED TO FLETCHER/PLACE REALITY ORIENTATION PROVED DURING ASSESSMENT, DENIES PAIN, NO SIGNS AND SYMPTOMS OF ACUTE CARDIO RESPIRATORY DISTRESS/SHORTNESS OF BREATH DENIES CHEST PAIN, NO PERIPHERAL EDEMA NOTED. HD RIGHT SUBCLAVIAN PERMACATH, DRESSING DRY AND INTACT. IV INTACT, NO REDNESS/SWELLING NOTED TO SITE. ABDOMEN SOFT/NON DISTENDED/NON TENDER, BOWEL SOUNDS AUDIBLE, NO N/V/D. SIDE RAILS UP X3, BED IN LOWEST FOR SAFETY, BED ALARM ACTIVATED FOR SAFETY. FREQUENT ROUNDING FOR SAFETY/NEEDS, CONTINUE WITH CURRENT PLAN OF CARE. NAD.
[2020-11-15] MEDS: Levemir Flexpen SUBQ SCH (21:10)
[2020-11-16] VITALS: BP 134/76
[2020-11-16] MEDS: HydrALAZINE 25mg tab ORAL SCH ×4 (00:38→17:25)
[2020-11-16 04:00] VITALS: BP 144/72
[2020-11-16] MEDS: NovoLOG Insulin Flexpen SUBQ SCH ×4 (06:30→20:58)
--- NOTE | 2020-11-16 07:29 | NUR ---
NURSE NOTES: Received report from ZENAIDA Yancey. Patient seen in bed AAOx3, eating breakfast at this time. tolerates meals well. no aspiration and coughing noted while eating. Patient on room air saturating well, breathing is even and unlabored with no SOB noted at this time. HOB elevated. no acute distress noted at this time. Left AV fistula in place. no redness and tenderness noted on site. Bed is locked and placed in lowest position with bed alarm on. call light within reach. will continue to monitor
[2020-11-16 08:00] VITALS: BP 150/65
--- NOTE | 2020-11-16 08:00 | NUR ---
NURSE HAND-OFF: Important Events on Shift:[BLOOD SUGAR LEVEL 71MG/DL, ASSESSED FOR SIGNS AND SYMPTOMS OF HYPOGLYCEMIA, NONE NOTED] Patient Status: [STABLE] Diet: [RENAL] Pending Orders: [N/A] Pending Results/Labs:[] Pending MD notification:[] Latest Vital Signs: Temperature 98.3 , Pulse 83 , B/P 149 /71 , Respiratory Rate 18 , O2 SAT 99 , Nasal Cannula, O2 Flow Rate 2.0 . Vital Sign Comment: [STABLE] Latest Ness Fall Score: 50 Fall Risk: High Risk Safety Measures: Call light Within Reach, Bed Alarm Zone 1, Side Rails Side Rails x2, Bed position Low and Locked. Fall Precautions: Yellow Socks Yellow Gown Door Sign Patient Fall Education Report given to [ZENAIDA WU].
[2020-11-16] MEDS: Citalopram Hydrobromide 10mg Tab ORAL SCH (08:56)
[2020-11-16] MEDS: Megace 400mg/10ml Susp ORAL SCH (08:57)
[2020-11-16] MEDS: Docusate 100mg cap ORAL SCH ×2 (08:57→17:25)
[2020-11-16 09:00] LABS: BASOPHILS % (AUTO) 1.5 % (0.0-2.0); EOSINOPHILS % (AUTO) 1.1 % (0.0-3.0); HEMOGLOBIN 9.8 G/DL (12.0-16.0); LYMPHOCYTES % (AUTO) 20.1 % (20.0-45.0); MEAN CORPUSCULAR VOLUME 96 FL (80-99); MONOCYTES % (AUTO) 12.3 % (1.0-10.0); PLATELET COUNT 147 K/UL (150-450); RED BLOOD COUNT 3.13 M/UL (4.20-5.40); RED CELL DISTRIBUTION WIDTH 17.7 % (11.6-14.8); WHITE BLOOD COUNT 6.4 K/UL (4.8-10.8)
[2020-11-16 09:18] LABS: ALBUMIN 2.8 G/DL (3.4-5.0); ALBUMIN/GLOBULIN RATIO 0.6 (1.0-2.7); BILIRUBIN,TOTAL 0.4 MG/DL (0.2-1.0); CALCIUM 9.1 MG/DL (8.5-10.1); PHOSPHORUS 5.3 MG/DL (2.5-4.9); POTASSIUM 4.8 MMOL/L (3.5-5.1)
--- NOTE | 2020-11-16 09:18 | Cardiology Progress Note ---
Assessment/Plan Status Narrative 1. COVID-19 viral PNA low grade fever, improved antiviral tx per ID 2. HFrEF, acute on chronic systolic on diastolic HF with EF 35-40% BNP severely elevated Fluid balance with HD Troponin negative Good O2 perfusion 3. ESRD on HD Aneuric Microfiltration for fluid balance 4. HTN - under better control 5. Mitral regurgitation - mod-severe contributing to severity of HF 6. possible ASD with L to R shunt 7. Sinus tachycardia 2/2 viral PNA and fever rate controlled, in SR 8. Anemia of chronic disease 9. Respiratory failure - O2 dependent Fluid balance with HD, still in fluid overload, BNP severely elevated. Tx for viral PNA per ID. In SR, rate and SBP controlled. Subjective ROS Limited/Unobtainable: Yes Cardiovascular: Reports: edema Respiratory: Reports: shortness of breath Gastrointestinal/Abdominal: Reports: poor appetite Genitourinary: Reports: no symptoms Subjective SBP and HR in normal territory, good O2 perfusion on O2 NC Objective Last 24 Hour Vital Signs Date Time Temp Pulse Resp B/P (MAP) Pulse Ox O2 Delivery O2 Flow Rate FiO2 11/16/20 08:57 80 150/65 11/16/20 05:20 149/71 11/16/20 04:00 98.3 83 18 144/72 (96) 99 11/16/20 00:38 141/79 11/16/20 00:00 98.7 77 18 134/76 (95) 96 11/15/20 21:00 Nasal Cannula 2.0 11/15/20 20:00 97.9 87 18 141/72 (95) 99 11/15/20 17:16 135/76 11/15/20 16:00 98.3 83 18 135/76 (95) 97 11/15/20 12:23 136/69 11/15/20 12:00 97.3 79 18 122/59 (80) 95 General Appearance: no apparent distress Neck: no JVD Cardiovascular: regular rhythm Respiratory/Chest: no accessory muscle use Intake and Output 11/15/20 11/16/20 19:00 07:00 Intake Total 360 ml 40 ml Balance 360 ml 40 ml Intake Oral 360 ml 40 ml Laboratory Tests Test 11/15/20 11:24 11/15/20 21:02 11/16/20 07:15 11/16/20 07:57 POC Whole Blood Glucose 105 MG/DL (74-106) Pending White Blood Count 6.4 K/UL (4.8-10.8) Red Blood Count 3.13 M/UL (4.20-5.40) L Hemoglobin 9.8 G/DL (12.0-16.0) L Hematocrit 30.0 % (37.0-47.0) L Mean Corpuscular Volume 96 FL (80-99) Mean Corpuscular Hemoglobin 31.4 PG (27.0-31.0) H Mean Corpuscular Hemoglobin Concent 32.7 G/DL (32.0-36.0) Red Cell Distribution Width 17.7 % (11.6-14.8) H Platelet Count 147 K/UL (150-450) L Mean Platelet Volume 8.8 FL (6.5-10.1) Neutrophils (%) (Auto) 65.0 % (45.0-75.0) Lymphocytes (%) (Auto) 20.1 % (20.0-45.0) Monocytes (%) (Auto) 12.3 % (1.0-10.0) H Eosinophils (%) (Auto) 1.1 % (0.0-3.0) Basophils (%) (Auto) 1.5 % (0.0-2.0) Sodium Level Pending Potassium Level Pending Chloride Level Pending Carbon Dioxide Level Pending Blood Urea Nitrogen Pending Creatinine Pending Estimat Glomerular Filtration Rate Pending Glucose Level Pending Calcium Level Pending Phosphorus Level Pending Magnesium Level Pending Total Bilirubin Pending Aspartate Amino Transf (AST/SGOT) Pending Alanine Aminotransferase (ALT/SGPT) Pending Alkaline Phosphatase Pending Total Protein Pending Albumin Pending Globulin Pending Pamela Chowdhury PA-C Nov 16, 2020 09:18
--- NOTE | 2020-11-16 11:30 | NUR ---
NURSE NOTES: RN changed and took pictures of wounds for pending discharge order
--- NOTE | 2020-11-16 11:53 | Nephrology Progress Note ---
Assessment/Plan Problem List: (1) End stage renal disease on dialysis (2) C. difficile colitis (3) Transient hypotension (4) Diastolic CHF, chronic Assessment 75-year-old female presents with respiratory distress and COVID-19 infection Patient has end-stage renal disease and last dialyzed 4 days ago Patient presents with high potassium History of C. difficile colitis History of diabetes mellitus History of hypertension, presents with transient hypotension History of cardiomyopathy and diastolic CHF Plan November 16: Last dialysis November 14. Will order dialysis for tomorrow. Medication list reviewed. Continue per consultants. November 15: Dialyzed yesterday. 2 L removed. No labs drawn today. We will continue to monitor her renal parameters and dialysis as needed. November 14: Last dialysis November 12. Due for dialysis today. Labs reviewed. Medication list reviewed. Stable from renal standpoint of view. November 13: Dialyzed yesterday. Labs reviewed. Stable from renal standpoint of view. Next hemodialysis tomorrow. November 12: Due for dialysis today. No chemistry panel done today. Blood pressure stable. Continue per current management. November 11: Last dialysis November 09. No labs drawn today yet. We will order dialysis tomorrow. November 10: Patient was dialyzed yesterday. Potassium now within normal limit. Blood pressure stable. Continue same. November 09: Due for dialysis today. Labs reviewed. Potassium 5.6 which will be corrected after dialysis. Will check repeat lab tomorrow. November 08: Dialyzed yesterday. Labs reviewed. Continue per consultants. Due for dialysis tomorrow. November 07: Due for dialysis today. Blood pressure medication adjusted. Will check lab tomorrow. November 06: Labs reviewed. Medication list reviewed. Will order dialysis for tomorrow. Continue per consultants. Hydralazine 25 mg as needed for high blood pressure ordered. November 05: Discussed with dialysis nurse. Patient was dialyzed late last night. However today's lab results suggestive of high BUN and creatinine. Serum potassium elevated but the repeat is normal. Will hold the Kayexalate. Will attempt another dialysis and order post BUN and creatinine. Reevaluation on November 05 at 3 PM: Stat BMP done as it appears this morning's lab was prior to dialysis even though it was marked 6 AM. The stat dialysis orders will be canceled based on new lab results. Will arrange for next dialysis on November 07 unless she needs it earlier. November 04: Patient due for dialysis today. Blood pressure stable. No UF is scheduled during dialysis. Check labs tomorrow. No can panel drawn today. November 03: Patient was dialyzed yesterday. Labs reviewed. Blood pressure more stable. Due for dialysis tomorrow. No ultrafiltration is ordered. November 02: Dialyzed today. Blood pressure 95 systolic. Parameters for BP medications. Patient asymptomatic. Albumin 25% 100 cc 1 bolus dose ordered. Continue rest. Discussed with RN. November 01: Dialyzed yesterday. Labs reviewed. Medication list reviewed. Blood pressure medication adjusted. Hemodialysis tomorrow. October 31: Due for dialysis today. No labs drawn today. Continue per consultants. Will check can panel tomorrow. Medication list reviewed. Blood pressure stable. October 30: Last dialyzed October 29. Due for dialysis October 31. Continue per consultants. October 29: Patient dialyzed last evening of October 27. Serum creatinine and electrolyte much improved Continue per current treatment plan Per orders Next dialysis today October 29 Check labs in a.m. Subjective ROS Limited/Unobtainable: No Constitutional: Reports: malaise, weakness Objective Objective Last 24 Hour Vital Signs Date Time Temp Pulse Resp B/P (MAP) Pulse Ox O2 Delivery O2 Flow Rate FiO2 11/16/20 09:00 Nasal Cannula 2.0 11/16/20 08:57 80 150/65 11/16/20 08:00 98.4 80 18 150/65 (93) 100 11/16/20 05:20 149/71 11/16/20 04:00 98.3 83 18 144/72 (96) 99 11/16/20 00:38 141/79 11/16/20 00:00 98.7 77 18 134/76 (95) 96 11/15/20 21:00 Nasal Cannula 2.0 11/15/20 20:00 97.9 87 18 141/72 (95) 99 11/15/20 17:16 135/76 11/15/20 16:00 98.3 83 18 135/76 (95) 97 11/15/20 12:23 136/69 11/15/20 12:00 97.3 79 18 122/59 (80) 95 Intake and Output 11/15/20 11/16/20 19:00 07:00 Intake Total 360 ml 40 ml Balance 360 ml 40 ml Intake Oral 360 ml 40 ml Laboratory Tests 11/15/20 21:02: POC Whole Blood Glucose [Pending] 11/16/20 07:15: White Blood Count 6.4, Red Blood Count 3.13L, Hemoglobin 9.8L, Hematocrit 30.0L, Mean Corpuscular Volume 96, Mean Corpuscular Hemoglobin 31.4H, Mean Corpuscular Hemoglobin Concent 32.7, Red Cell Distribution Width 17.7H, Platelet Count 147L , Mean Platelet Volume 8.8, Neutrophils (%) (Auto) 65.0, Lymphocytes (%) (Auto) 20.1, Monocytes (%) (Auto) 12.3H, Eosinophils (%) (Auto) 1.1, Basophils (%) (Auto) 1.5 11/16/20 07:57: Sodium Level 137, Potassium Level 4.8, Chloride Level 100, Carbon Dioxide Level 30, Anion Gap 7, Blood Urea Nitrogen 70H, Creatinine 6.0H, Estimat Glomerular Filtration Rate 6.8, Glucose Level 70L, Calcium Level 9.1, Phosphorus Level 5.3H , Magnesium Level 2.1, Total Bilirubin 0.4, Aspartate Amino Transf (AST/SGOT) 15, Alanine Aminotransferase (ALT/SGPT) 10L, Alkaline Phosphatase 86, Total Protein 7.5, Albumin 2.8L, Globulin 4.7, Albumin/Globulin Ratio 0.6L Height (Feet): 5 Height (Inches): 1.00 Weight (Pounds): 92 General Appearance: no apparent distress Cardiovascular: normal rate Respiratory/Chest: decreased breath sounds Abdomen: soft Objective No change Chris Puckett MD Nov 16, 2020 11:52
[2020-11-16 12:00] VITALS: BP 138/70
--- NOTE | 2020-11-16 13:28 | Pulmonology Progress Note ---
Subjective ROS Limited/Unobtainable: No Interval Events: None new reported Constitutional: Denies: fever, chills HEENT: Repors: no symptoms Respiratory: Reports: no symptoms Cardiovascular: Reports: no symptoms Gastrointestinal/Abdominal: Denies: nausea, vomiting, diarrhea Musculoskeletal: Denies: pain Allergies: Coded Allergies: No Known Allergies (Unverified , 09/23/20) Objective Last 24 Hour Vital Signs Date Time Temp Pulse Resp B/P (MAP) Pulse Ox O2 Delivery O2 Flow Rate FiO2 11/16/20 12:10 138/70 11/16/20 12:00 97.3 77 17 138/70 (92) 99 11/16/20 09:00 Nasal Cannula 2.0 11/16/20 08:57 80 150/65 11/16/20 08:00 98.4 80 18 150/65 (93) 100 11/16/20 05:20 149/71 11/16/20 04:00 98.3 83 18 144/72 (96) 99 11/16/20 00:38 141/79 11/16/20 00:00 98.7 77 18 134/76 (95) 96 11/15/20 21:00 Nasal Cannula 2.0 11/15/20 20:00 97.9 87 18 141/72 (95) 99 11/15/20 17:16 135/76 11/15/20 16:00 98.3 83 18 135/76 (95) 97 Intake and Output 11/15/20 11/16/20 19:00 07:00 Intake Total 360 ml 40 ml Balance 360 ml 40 ml Intake Oral 360 ml 40 ml General Appearance: other - thin HEENT: normocephalic, atraumatic Respiratory: chest wall non-tender, rhonchi - bilaterally, other - dialysis catheter Cardiovascular: normal rate, regular rhythm Abdomen: soft, non tender Laboratory Tests 11/15/20 21:02: POC Whole Blood Glucose [Pending] 11/16/20 07:15: White Blood Count 6.4, Red Blood Count 3.13L, Hemoglobin 9.8L, Hematocrit 30.0L, Mean Corpuscular Volume 96, Mean Corpuscular Hemoglobin 31.4H, Mean Corpuscular Hemoglobin Concent 32.7, Red Cell Distribution Width 17.7H, Platelet Count 147L , Mean Platelet Volume 8.8, Neutrophils (%) (Auto) 65.0, Lymphocytes (%) (Auto) 20.1, Monocytes (%) (Auto) 12.3H, Eosinophils (%) (Auto) 1.1, Basophils (%) (Auto) 1.5 11/16/20 07:57: Sodium Level 137, Potassium Level 4.8, Chloride Level 100, Carbon Dioxide Level 30, Anion Gap 7, Blood Urea Nitrogen 70H, Creatinine 6.0H, Estimat Glomerular Filtration Rate 6.8, Glucose Level 70L, Calcium Level 9.1, Phosphorus Level 5.3H , Magnesium Level 2.1, Total Bilirubin 0.4, Aspartate Amino Transf (AST/SGOT) 15, Alanine Aminotransferase (ALT/SGPT) 10L, Alkaline Phosphatase 86, Total Protein 7.5, Albumin 2.8L, Globulin 4.7, Albumin/Globulin Ratio 0.6L Current Medications Medications (Trade) Dose Ordered Sig/Yeimi Route PRN Reason Start Time Stop Time Status Last Admin Dose Admin Acetaminophen (Tylenol) 650 mg Q4H PRN ORAL Temp >100.5 10/27/20 14:15 11/26/20 14:14 11/05/20 17:22 Amlodipine Besylate (Norvasc) 5 mg DAILY ORAL 11/08/20 09:00 12/08/20 08:59 11/16/20 08:57 Citalopram Hydrobromide (CeleXA) 20 mg DAILY ORAL 10/29/20 09:00 11/28/20 08:59 11/16/20 08:56 Dextrose (Dextrose 50%) 25 ml Q30M PRN IV Hypoglycemia 10/28/20 20:45 01/26/21 20:44 Dextrose (Dextrose 50%) 50 ml Q30M PRN IV Hypoglycemia 10/28/20 20:45 01/26/21 20:44 Docusate Sodium (Colace) 100 mg TWICE A DAY ORAL 10/28/20 18:00 11/27/20 17:59 11/16/20 08:57 Haloperidol Lactate (Haldol) 5 mg Q6H PRN IM Agitation 10/28/20 15:45 12/12/20 15:44 Hydralazine HCl (Apresoline) 25 mg Q4H PRN ORAL For BP over 160 systolic 11/06/20 16:15 02/04/21 16:14 Hydralazine HCl (Apresoline) 25 mg Q6HR ORAL 11/07/20 18:00 02/05/21 17:59 11/16/20 12:10 Insulin Aspart (NovoLOG) BEFORE MEALS AND HS SUBQ 10/28/20 21:00 01/26/21 20:59 11/12/20 21:01 Insulin Detemir (Levemir) 10 units Q24H SUBQ 10/29/20 20:00 01/27/21 19:59 11/15/20 21:10 Megestrol Acetate (Megace) 400 mg DAILY ORAL 10/28/20 09:00 01/26/21 08:59 11/16/20 08:57 Pantoprazole (Protonix) 40 mg EVERY 12 HOURS ORAL 10/28/20 21:00 11/27/20 20:59 11/16/20 08:57 Sevelamer Carbonate (Renvela) 800 mg THREE TIMES A DAY ORAL 10/28/20 13:00 01/26/21 12:59 11/16/20 12:10 Assessment/Plan Assessment/Plan Assessment/Plan 1. COVID-19 pneumonia. - Continue isolation. - wean down oxygen as tolerated while keeping SaO2 >92%; currently saturating well on 2 lpm NC - CXR 10/27/2020 shows multifocal infiltrate. - s/p decadron - s/p ceftriaxone and azithromycin. - Repeat COVID-19 test 10/29/2020 positive 2. Renal failure, on dialysis. - per renal 3. Congestive heart failure. - BNP >35,000 - 2D echo EF 35-40% - management per cardio 4. Right eye conjunctivitis. - improving 5. DVT ppx - D-dimer 3.08, CRP 16.1 -> 4.0 - 10/29/2020 venous ultrasound unremarkable - On SCD 6. hyperkalemia - per renal (Patient was seen earlier today. Signature timestamp does not reflect patient encounter time) Naman Jefferson MD, MD Nov 16, 2020 13:28
--- NOTE | 2020-11-16 14:05 | Surgery Progress Note ---
Surgery Progress Note Subjective Symptoms: improved, tolerating diet, passing flatus Objective Last 24 Hour Vital Signs Date Time Temp Pulse Resp B/P (MAP) Pulse Ox O2 Delivery O2 Flow Rate FiO2 11/16/20 12:10 138/70 11/16/20 12:00 97.3 77 17 138/70 (92) 99 11/16/20 09:00 Nasal Cannula 2.0 11/16/20 08:57 80 150/65 11/16/20 08:00 98.4 80 18 150/65 (93) 100 11/16/20 05:20 149/71 11/16/20 04:00 98.3 83 18 144/72 (96) 99 11/16/20 00:38 141/79 11/16/20 00:00 98.7 77 18 134/76 (95) 96 11/15/20 21:00 Nasal Cannula 2.0 11/15/20 20:00 97.9 87 18 141/72 (95) 99 11/15/20 17:16 135/76 11/15/20 16:00 98.3 83 18 135/76 (95) 97 I&O Intake and Output 11/15/20 11/16/20 19:00 07:00 Intake Total 360 ml 40 ml Balance 360 ml 40 ml Intake Oral 360 ml 40 ml Dressing: saturated Cardiovascular: RSR Respiratory: decreased breath sounds Abdomen: soft, non-tender, present bowel sounds, non-distended Extremities: no tenderness, no cyanosis Laboratory Tests Test 11/15/20 21:02 11/16/20 07:15 11/16/20 07:57 POC Whole Blood Glucose Pending White Blood Count 6.4 K/UL (4.8-10.8) Red Blood Count 3.13 M/UL (4.20-5.40) L Hemoglobin 9.8 G/DL (12.0-16.0) L Hematocrit 30.0 % (37.0-47.0) L Mean Corpuscular Volume 96 FL (80-99) Mean Corpuscular Hemoglobin 31.4 PG (27.0-31.0) H Mean Corpuscular Hemoglobin Concent 32.7 G/DL (32.0-36.0) Red Cell Distribution Width 17.7 % (11.6-14.8) H Platelet Count 147 K/UL (150-450) L Mean Platelet Volume 8.8 FL (6.5-10.1) Neutrophils (%) (Auto) 65.0 % (45.0-75.0) Lymphocytes (%) (Auto) 20.1 % (20.0-45.0) Monocytes (%) (Auto) 12.3 % (1.0-10.0) H Eosinophils (%) (Auto) 1.1 % (0.0-3.0) Basophils (%) (Auto) 1.5 % (0.0-2.0) Sodium Level 137 MMOL/L (136-145) Potassium Level 4.8 MMOL/L (3.5-5.1) Chloride Level 100 MMOL/L (98-107) Carbon Dioxide Level 30 MMOL/L (21-32) Anion Gap 7 mmol/L (5-15) Blood Urea Nitrogen 70 mg/dL (7-18) H Creatinine 6.0 MG/DL (0.55-1.30) H Estimat Glomerular Filtration Rate 6.8 mL/min (>60) Glucose Level 70 MG/DL (74-106) L Calcium Level 9.1 MG/DL (8.5-10.1) Phosphorus Level 5.3 MG/DL (2.5-4.9) H Magnesium Level 2.1 MG/DL (1.8-2.4) Total Bilirubin 0.4 MG/DL (0.2-1.0) Aspartate Amino Transf (AST/SGOT) 15 U/L (15-37) Alanine Aminotransferase (ALT/SGPT) 10 U/L (12-78) L Alkaline Phosphatase 86 U/L (46-116) Total Protein 7.5 G/DL (6.4-8.2) Albumin 2.8 G/DL (3.4-5.0) L Globulin 4.7 g/dL Albumin/Globulin Ratio 0.6 (1.0-2.7) L Plan Problems: (1) Decubitus skin ulcer Assessment & Plan: Pt presented on admission with multiple Pressure Injuries. DTPI Sacrum(L)8cm x (W)8cm. Base of wound is purpuric with surrounding non- Blanchable erythema. Darker skin tone without erythema or induration periwound. Pt complained at site of DTPI when minimally palpated. Non-Blanchable erythema without induration R Ischium(L)7cm x (W)7.5cm. L Heel is boggy with non-Blanchable erythema. R heel is Boggy with non-blanchable erythema. Tx.Plan: Apply Moisture Barrier Paste to Sacrum. Cover with Optifoam drsg. Change every 3 days and prn.. Apply Moisture Barrier Paste to R and L Ischial tuberosities. Cover each Ischium with Optifoam drsgs. Change every 3 days and prn. Apply Cavilon Skin Barrier to R and L Heels and each Malleoli. Cover each site with Optifoam drsgs. Change every 7 days and prn. Cover Bony prominences as needed with Optifoam drsgs. Reposition at least every 2 hours or as tolerated. Off-load heels with Pillow. (2) Dyspnea (3) Respiratory distress (4) Pneumonia due to COVID-19 virus Assessment & Plan: ++ on tx id and pulm input appreciated limited movement will need to be cautions to ensure not worsening decub (5) Hypoglycemia (6) End stage renal disease on dialysis (7) Transient hypotension (8) Diastolic CHF, chronic (9) C. difficile colitis (10) Diarrhea Assessment & Plan: DAILY ESTIMATED NEEDS: Needs based on ESRD on HD 42kg 30-40 kcals/kg [id number] total kcals 1.25-1.8 g protein/kg 53-76 g total protein Fluid per MD, on HD NUTRITION DIAGNOSIS: Increased kcal and pro needs r/t renal dysfunction, wound healing as evidenced by pt w/ ESRD on HD, admitted w/ wounds, including sacral DTPI. CURRENT DIET:Renal diet PO DIET RECOMMENDATIONS: Renal + [facility] diet/ texture per OUTPATIENT FACILITY PHYSICAL THERAPIST ADDITIONAL RECOMMENDATIONS: 1) Daily wts, calibrated bed scale 2) Rec OUTPATIENT FACILITY PHYSICAL THERAPIST eval for appropriate texture 3) Add NEPRO QD (425kcal/19g prot), monitor need for additional 4) Monitor for hypoglycemia (BG 68 this am) -> DC or LOWER LEVEMIR @ [facility]- pt now w/ improved BG, hypoglycemic episodes 5) Wound healing: Nephrovite x 1, ZnSO4 220mg QD x 10 days Abdirahman BID as tolerated (11) ESRD (end stage renal disease) (12) Altered mental status (13) Pneumonia Kurt Flores Nov 16, 2020 14:05
--- NOTE | 2020-11-16 15:12 | General Progress Note ---
Subjective Allergies: Coded Allergies: No Known Allergies (Unverified , 09/23/20) Subjective sob better awake eating better off isolation Objective Last 24 Hour Vital Signs Date Time Temp Pulse Resp B/P (MAP) Pulse Ox O2 Delivery O2 Flow Rate FiO2 11/16/20 12:10 138/70 11/16/20 12:00 97.3 77 17 138/70 (92) 99 11/16/20 09:00 Nasal Cannula 2.0 11/16/20 08:57 80 150/65 11/16/20 08:00 98.4 80 18 150/65 (93) 100 11/16/20 05:20 149/71 11/16/20 04:00 98.3 83 18 144/72 (96) 99 11/16/20 00:38 141/79 11/16/20 00:00 98.7 77 18 134/76 (95) 96 11/15/20 21:00 Nasal Cannula 2.0 11/15/20 20:00 97.9 87 18 141/72 (95) 99 11/15/20 17:16 135/76 11/15/20 16:00 98.3 83 18 135/76 (95) 97 Intake and Output 11/15/20 11/16/20 19:00 07:00 Intake Total 360 ml 40 ml Balance 360 ml 40 ml Intake Oral 360 ml 40 ml Laboratory Tests 11/15/20 21:02: POC Whole Blood Glucose [Pending] 11/16/20 07:15: White Blood Count 6.4, Red Blood Count 3.13L, Hemoglobin 9.8L, Hematocrit 30.0L, Mean Corpuscular Volume 96, Mean Corpuscular Hemoglobin 31.4H, Mean Corpuscular Hemoglobin Concent 32.7, Red Cell Distribution Width 17.7H, Platelet Count 147L, Mean Platelet Volume 8.8, Neutrophils (%) (Auto) 65.0, Lymphocytes (%) (Auto) 20.1, Monocytes (%) (Auto) 12.3H, Eosinophils (%) (Auto) 1.1, Basophils (%) (Auto) 1.5 11/16/20 07:57: Sodium Level 137, Potassium Level 4.8, Chloride Level 100, Carbon Dioxide Level 30, Anion Gap 7, Blood Urea Nitrogen 70H, Creatinine 6.0H, Estimat Glomerular Filtration Rate 6.8, Glucose Level 70L, Calcium Level 9.1, Phosphorus Level 5.3H , Magnesium Level 2.1, Total Bilirubin 0.4, Aspartate Amino Transf (AST/SGOT) 15, Alanine Aminotransferase (ALT/SGPT) 10L, Alkaline Phosphatase 86, Total Protein 7.5, Albumin 2.8L, Globulin 4.7, Albumin/Globulin Ratio 0.6L Height (Feet): 5 Height (Inches): 1.00 Weight (Pounds): 92 General Appearance: alert Neck: supple Cardiovascular: regular rhythm Respiratory/Chest: normal breath sounds Abdomen: non tender, soft Assessment/Plan Status: not improved Assessment/Plan: 1 sob 2 covid pna cont isolation 3 chf diastolic acute 4 esrd on hd 5 failure of thrive 6 dementia 7 dm poory controlled due to steroids 8 hypotension 9 hyperkalemia rpt ok add levamier and high dose short insulin pt/ot eval dw pt pt is very weak id for evaluation for rpt covid for dc plan cardio and pulmonary consult off abx off isolation dc plan to snf Cesar Swanson MD Nov 16, 2020 15:12
[2020-11-16 16:00] VITALS: BP 133/71
--- NOTE | 2020-11-16 19:26 | NUR ---
NURSE HAND-OFF: Important Events on Shift: active discharge order, wound pictures and dressing change Patient Status: stable Diet: renal Pending Orders: discharge Pending Results/Labs:n/a Pending MD notification:n/a Latest Vital Signs: Temperature 98.0 , Pulse 82 , B/P 133 /71 , Respiratory Rate 18 , O2 SAT 99 , Nasal Cannula, O2 Flow Rate 2.0 . Vital Sign Comment: stable Latest Ness Fall Score: 50 Fall Risk: High Risk Safety Measures: Call light Within Reach, Bed Alarm Zone 1, Side Rails Side Rails x2, Bed position Low and Locked. Fall Precautions: Yellow Socks Yellow Gown Door Sign Patient Fall Education Report given to ZENAIDA Paulson.
[2020-11-16 20:00] VITALS: BP 136/63
[2020-11-16] MEDS: Levemir Flexpen SUBQ SCH (21:01)
--- NOTE | 2020-11-16 22:33 | NUR ---
NURSE NOTES:received patient, calm in bed, low grade fever 100.0, Wednesday photos and wounds care performed by day shifts. for hemodialysis in am.
[2020-11-17] VITALS: BP_SYST 141; BP_SYST 144; BP_DIAS 67
[2020-11-17] MEDS: HydrALAZINE 25mg tab ORAL SCH ×4 (00:33→17:14)
[2020-11-17 04:00] VITALS: BP 137/62
[2020-11-17] MEDS: NovoLOG Insulin Flexpen SUBQ SCH ×4 (05:45→21:00)
--- NOTE | 2020-11-17 07:49 | NUR ---
NURSE NOTES: Received report from ZENAIDA Jasso. Patient seen in bed Alert,awake, and oriented x3. Patient on room air with no SOB noted at this time. HOB elevated. no acute distress noted at this time. Left AV fistula in place. no redness and tenderness noted on site. for hemodialysis scheduled later today with [facility]. IV site located on Right wrist 22 asymptomatic, inplace and intact. Bed is locked and placed in lowest position with bed alarm on. call light within reach. will continue to monitor
[2020-11-17 08:00] VITALS: BP 144/63
[2020-11-17] MEDS: Docusate 100mg cap ORAL SCH ×2 (08:46→17:14)
[2020-11-17] MEDS: Megace 400mg/10ml Susp ORAL SCH (08:46)
[2020-11-17] MEDS: Citalopram Hydrobromide 10mg Tab ORAL SCH (08:48)
--- NOTE | 2020-11-17 09:54 | Hematology/Onc Progress Note ---
Assessment/Plan Assessment/Plan # Anemia of chronic disease due to underlying chronic medical issues, multifactorial v Gi bleed --> Anemia workup has been ordered, rule out gi bleed --> No evidence of hemolysis is noted, peripheral smear has been reviewed. --> Hgb goal >7. Transfuse prn --> Epogen or iron at this time is not particularly indicated --> Medications have been reviewed --> low threshold for gi evaluation in case has occult + --> hgb 11-->9.6-->10.4->9.8 # Thrombocytopenia due to Covid pna++++++++ --> cont isolation -> completed steriods --> per pulm recs --> plt 160-->98-->147 --> supportive care --> hep and hiv are neg # chf diastolic acute -> cards aware # Esrd on hd --> per renal # failure of thrive # dementia # dm poory controlled due to steroids Appreciate consultation and dw PCP Subjective HEENT: Denies: no symptoms, eye pain, blurred vision, tearing, double vision, ear pain, ear discharge, nose pain, nose congestion, throat pain, throat swelling, mouth pain, mouth swelling, other Respiratory: Denies: no symptoms, cough, shortness of breath, SOB with excertion, SOB at rest, sputum, wheezing, other Gastrointestinal/Abdominal: Denies: no symptoms, abdomen distended, abdominal pain, black stools, tarry stools, blood in stool, constipated, diarrhea, diffi culty swallowing, nausea, poor appetite, poor fluid intake, rectal bleeding, vomiting, other Genitourinary: Denies: no symptoms, burning, discharge, frequency, flank pain, hematuria, incontinence, pain, urgency, other Endocrine: Denies: no symptoms, excessive sweating, flushing, intolerance to cold, intolerance to heat, increased hunger, increased thirst, increased urine, unexplained weight gain, unexplained weight loss, other Hematologic/Lymphatic: Denies: no symptoms, anemia, easy bleeding, easy bruising, adenopathy, other Allergies: Coded Allergies: No Known Allergies (Unverified , 09/23/20) Subjective 11/04 labs are noted, no bleeding, meds reviewed, on steriods, seen by pulm 11/05 hd done yesterday, no bleeding, cbc is pending 11/06 awake, alert, labs are pending, reviewed storage consultant recs 11/07 meds reviewed, labs noted, no bleeding 11/08 labs are noted, no bleeding, meds are reviewed 11/10 meds noted, no bleeding, no f/c, no bleeding 11/11 hgb 10.1 yest, pending for today cbc/bmp 11/12 is on nc, no bleeding, plt lower ordered hep, hiv us abd 11/13 is on 2lnc, no bleeding, meds reviewed, labs noted 11/14 on 2l, labs pending, no bleeding, meds reviewed 11/15 no events, on 2l nc, meds noted 11/17 no events, nobleeding, asymptomatic, no night sweats noted Objective Objective Current Medications Medications (Trade) Dose Ordered Sig/Yeimi Route PRN Reason Start Time Stop Time Status Last Admin Dose Admin Acetaminophen (Tylenol) 650 mg Q4H PRN ORAL Temp >100.5 10/27/20 14:15 11/26/20 14:14 11/05/20 17:22 Amlodipine Besylate (Norvasc) 5 mg DAILY ORAL 11/08/20 09:00 12/08/20 08:59 11/16/20 08:57 Citalopram Hydrobromide (CeleXA) 20 mg DAILY ORAL 10/29/20 09:00 11/28/20 08:59 11/17/20 08:48 Dextrose (Dextrose 50%) 25 ml Q30M PRN IV Hypoglycemia 10/28/20 20:45 01/26/21 20:44 Dextrose (Dextrose 50%) 50 ml Q30M PRN IV Hypoglycemia 10/28/20 20:45 01/26/21 20:44 Docusate Sodium (Colace) 100 mg TWICE A DAY ORAL 10/28/20 18:00 11/27/20 17:59 11/17/20 08:46 Haloperidol Lactate (Haldol) 5 mg Q6H PRN IM Agitation 10/28/20 15:45 12/12/20 15:44 Hydralazine HCl (Apresoline) 25 mg Q4H PRN ORAL For BP over 160 systolic 11/06/20 16:15 02/04/21 16:14 Hydralazine HCl (Apresoline) 25 mg Q6HR ORAL 11/07/20 18:00 3/17/21 17:59 11/17/20 05:58 Insulin Aspart (NovoLOG) BEFORE MEALS AND HS SUBQ 10/28/20 21:00 01/26/21 20:59 11/16/20 16:29 Insulin Detemir (Levemir) 10 units Q24H SUBQ 10/29/20 20:00 01/27/21 19:59 11/16/20 21:01 Megestrol Acetate (Megace) 400 mg DAILY ORAL 10/28/20 09:00 01/26/21 08:59 11/17/20 08:46 Pantoprazole (Protonix) 40 mg EVERY 12 HOURS ORAL 10/28/20 21:00 11/27/20 20:59 11/17/20 08:46 Sevelamer Carbonate (Renvela) 800 mg THREE TIMES A DAY ORAL 10/28/20 13:00 01/26/21 12:59 11/17/20 08:46 Last 24 Hour Vital Signs Date Time Temp Pulse Resp B/P (MAP) Pulse Ox O2 Delivery O2 Flow Rate FiO2 11/17/20 08:51 81 144/63 11/17/20 05:58 137/62 11/17/20 04:00 97.7 77 20 137/62 (87) 97 11/17/20 00:33 143/64 11/17/20 00:00 98.2 123 17 141/67 (91) 97 11/17/20 00:00 98.2 82 17 144/67 (92) 97 11/16/20 22:16 Nasal Cannula 2.0 11/16/20 20:00 100.0 80 18 136/63 (87) 99 11/16/20 17:25 133/71 11/16/20 16:00 98.0 82 18 133/71 (91) 99 11/16/20 12:10 138/70 11/16/20 12:00 97.3 77 17 138/70 (92) 99 11/16/20 09:00 Nasal Cannula 2.0 11/16/20 08:57 80 150/65 11/16/20 08:00 98.4 80 18 150/65 (93) 100 11/16/20 05:20 149/71 11/16/20 04:00 98.3 83 18 144/72 (96) 99 11/16/20 00:38 141/79 11/16/20 00:00 98.7 77 18 134/76 (95) 96 11/15/20 21:00 Nasal Cannula 2.0 11/15/20 20:00 97.9 87 18 141/72 (95) 99 11/15/20 17:16 135/76 11/15/20 16:00 98.3 83 18 135/76 (95) 97 11/15/20 12:23 136/69 11/15/20 12:00 97.3 79 18 122/59 (80) 95 Intake and Output 11/16/20 11/17/20 19:00 07:00 Intake Total 200 ml 118 ml Balance 200 ml 118 ml Intake Oral 200 ml Other 118 ml # Voids 2 # Bowel Movements 1 Labs Test 11/14/20 11:34 11/14/20 16:23 11/14/20 22:14 11/15/20 05:56 POC Whole Blood Glucose 115 MG/DL (74-106) 105 MG/DL (74-106) Test 11/15/20 11:24 11/15/20 16:20 11/15/20 21:02 11/16/20 05:17 POC Whole Blood Glucose 105 MG/DL (74-106) 109 MG/DL (74-106) Test 11/16/20 07:15 11/16/20 07:57 11/16/20 11:35 11/16/20 16:23 White Blood Count 6.4 K/UL (4.8-10.8) Red Blood Count 3.13 M/UL (4.20-5.40) Hemoglobin 9.8 G/DL (12.0-16.0) Hematocrit 30.0 % (37.0-47.0) Mean Corpuscular Volume 96 FL (80-99) Mean Corpuscular Hemoglobin 31.4 PG (27.0-31.0) Mean Corpuscular Hemoglobin Concent 32.7 G/DL (32.0-36.0) Red Cell Distribution Width 17.7 % (11.6-14.8) Platelet Count 147 K/UL (150-450) Mean Platelet Volume 8.8 FL (6.5-10.1) Neutrophils (%) (Auto) 65.0 % (45.0-75.0) Lymphocytes (%) (Auto) 20.1 % (20.0-45.0) Monocytes (%) (Auto) 12.3 % (1.0-10.0) Eosinophils (%) (Auto) 1.1 % (0.0-3.0) Basophils (%) (Auto) 1.5 % (0.0-2.0) Sodium Level 137 MMOL/L (136-145) Potassium Level 4.8 MMOL/L (3.5-5.1) Chloride Level 100 MMOL/L (98-107) Carbon Dioxide Level 30 MMOL/L (21-32) Anion Gap 7 mmol/L (5-15) Blood Urea Nitrogen 70 mg/dL (7-18) Creatinine 6.0 MG/DL (0.55-1.30) Estimat Glomerular Filtration Rate 6.8 mL/min (>60) Glucose Level 70 MG/DL (74-106) Calcium Level 9.1 MG/DL (8.5-10.1) Phosphorus Level 5.3 MG/DL (2.5-4.9) Magnesium Level 2.1 MG/DL (1.8-2.4) Total Bilirubin 0.4 MG/DL (0.2-1.0) Aspartate Amino Transf (AST/SGOT) 15 U/L (15-37) Alanine Aminotransferase (ALT/SGPT) 10 U/L (12-78) Alkaline Phosphatase 86 U/L (46-116) Total Protein 7.5 G/DL (6.4-8.2) Albumin 2.8 G/DL (3.4-5.0) Globulin 4.7 g/dL Albumin/Globulin Ratio 0.6 (1.0-2.7) POC Whole Blood Glucose 89 MG/DL (74-106) 146 MG/DL (74-106) Test 11/16/20 20:58 11/17/20 05:41 Height (Feet): 5 Height (Inches): 1.00 Weight (Pounds): 92 Objective Gen: nad Pulm: ctab CV: rrr Abd: soft, nt, nd ext: no Timothy De La Cruz MD Nov 17, 2020 09:54
--- NOTE | 2020-11-17 10:40 | NUR ---
RD ASSESSMENT & RECOMMENDATIONS SEE CARE ACTIVITY FOR COMPLETE ASSESSMENT DAILY ESTIMATED NEEDS: Needs based on ESRD on HD 42kg 30-40 kcals/kg 0072-2090 total kcals 1.25-1.8 g protein/kg 53-76 g total protein Fluid per MD, on HD NUTRITION DIAGNOSIS: Increased kcal and pro needs r/t renal dysfunction, wound healing as evidenced by pt w/ ESRD on HD, admitted w/ wounds, including sacral DTPI. CURRENT DIET:Renal diet PO DIET RECOMMENDATIONS: Renal + CCHO MED diet/ texture per MANAGER HELPDESK ADDITIONAL RECOMMENDATIONS: 1) Daily wts, calibrated bed scale 2) Rec MANAGER HELPDESK eval for appropriate texture 3) Add NEPRO BID (425kcal/19g prot), monitor need for additional 4) Monitor for hypoglycemia (BG 68 this am)- no further events -> DC or LOWER LEVEMIR @ QHS- improved BG, no hypoglycemic episodes 5) Wound healing: Nephrovite x 1, ZnSO4 220mg QD x 10 days Abdirahman BID as tolerated
--- NOTE | 2020-11-17 10:43 | Pulmonology Progress Note ---
Subjective ROS Limited/Unobtainable: No Interval Events: None new reported Constitutional: Denies: fever, chills HEENT: Repors: no symptoms Respiratory: Reports: no symptoms Cardiovascular: Reports: no symptoms Gastrointestinal/Abdominal: Denies: nausea, vomiting, diarrhea Musculoskeletal: Denies: pain Allergies: Coded Allergies: No Known Allergies (Unverified , 09/23/20) Objective Last 24 Hour Vital Signs Date Time Temp Pulse Resp B/P (MAP) Pulse Ox O2 Delivery O2 Flow Rate FiO2 11/17/20 08:51 81 144/63 11/17/20 05:58 137/62 11/17/20 04:00 97.7 77 20 137/62 (87) 97 11/17/20 00:33 143/64 11/17/20 00:00 98.2 123 17 141/67 (91) 97 11/17/20 00:00 98.2 82 17 144/67 (92) 97 11/16/20 22:16 Nasal Cannula 2.0 11/16/20 20:00 100.0 80 18 136/63 (87) 99 11/16/20 17:25 133/71 11/16/20 16:00 98.0 82 18 133/71 (91) 99 11/16/20 12:10 138/70 11/16/20 12:00 97.3 77 17 138/70 (92) 99 Intake and Output 11/16/20 11/17/20 19:00 07:00 Intake Total 200 ml 118 ml Balance 200 ml 118 ml Intake Oral 200 ml Other 118 ml # Voids 2 # Bowel Movements 1 General Appearance: other - thin HEENT: normocephalic, atraumatic Respiratory: chest wall non-tender, rhonchi - bilaterally, other - dialysis catheter Cardiovascular: normal rate, regular rhythm Abdomen: soft, non tender Laboratory Tests 11/16/20 11:35: POC Whole Blood Glucose 89 11/16/20 16:23: POC Whole Blood Glucose 146H 11/16/20 20:58: POC Whole Blood Glucose [Pending] 11/17/20 05:41: POC Whole Blood Glucose [Pending] Current Medications Medications (Trade) Dose Ordered Sig/Yeimi Route PRN Reason Start Time Stop Time Status Last Admin Dose Admin Acetaminophen (Tylenol) 650 mg Q4H PRN ORAL Temp >100.5 10/27/20 14:15 1/5/21 14:14 11/05/20 17:22 Amlodipine Besylate (Norvasc) 5 mg DAILY ORAL 11/08/20 09:00 12/08/20 08:59 11/16/20 08:57 Citalopram Hydrobromide (CeleXA) 20 mg DAILY ORAL 10/29/20 09:00 11/28/20 08:59 11/17/20 08:48 Dextrose (Dextrose 50%) 25 ml Q30M PRN IV Hypoglycemia 10/28/20 20:45 01/26/21 20:44 Dextrose (Dextrose 50%) 50 ml Q30M PRN IV Hypoglycemia 10/28/20 20:45 01/26/21 20:44 Docusate Sodium (Colace) 100 mg TWICE A DAY ORAL 10/28/20 18:00 11/27/20 17:59 11/17/20 08:46 Haloperidol Lactate (Haldol) 5 mg Q6H PRN IM Agitation 10/28/20 15:45 12/12/20 15:44 Hydralazine HCl (Apresoline) 25 mg Q4H PRN ORAL For BP over 160 systolic 11/06/20 16:15 02/04/21 16:14 Hydralazine HCl (Apresoline) 25 mg Q6HR ORAL 11/07/20 18:00 02/05/21 17:59 11/17/20 05:58 Insulin Aspart (NovoLOG) BEFORE MEALS AND HS SUBQ 10/28/20 21:00 01/26/21 20:59 11/16/20 16:29 Insulin Detemir (Levemir) 10 units Q24H SUBQ 10/29/20 20:00 01/27/21 19:59 11/16/20 21:01 Megestrol Acetate (Megace) 400 mg DAILY ORAL 10/28/20 09:00 01/26/21 08:59 11/17/20 08:46 Pantoprazole (Protonix) 40 mg EVERY 12 HOURS ORAL 10/28/20 21:00 11/27/20 20:59 11/17/20 08:46 Sevelamer Carbonate (Renvela) 800 mg THREE TIMES A DAY ORAL 10/28/20 13:00 01/26/21 12:59 11/17/20 08:46 Assessment/Plan Assessment/Plan Assessment/Plan 1. COVID-19 pneumonia. - Continue isolation. - wean down oxygen as tolerated while keeping SaO2 >92%; currently saturating well on 2L/min sat 100% - CXR 10/27/2020 shows multifocal infiltrate. - s/p decadron - s/p ceftriaxone and azithromycin. - Repeat COVID-19 test 10/29/2020 positive 2. Renal failure, on dialysis. - per renal 3. Congestive heart failure. - BNP >35,000 - 2D echo EF 35-40% - management per cardio 4. Right eye conjunctivitis. - improving 5. DVT ppx - D-dimer 3.08, CRP 16.1 -> 4.0 - 10/29/2020 venous ultrasound unremarkable - On SCD 6. hyperkalemia K 4.8 11/16/2020 Agustín Meeks NP Nov 17, 2020 10:43
[2020-11-17 12:00] VITALS: BP 138/66
--- NOTE | 2020-11-17 12:34 | General Progress Note ---
Subjective Allergies: Coded Allergies: No Known Allergies (Unverified , 09/23/20) Subjective sob better awake eating better off isolation Objective Last 24 Hour Vital Signs Date Time Temp Pulse Resp B/P (MAP) Pulse Ox O2 Delivery O2 Flow Rate FiO2 11/17/20 09:00 Nasal Cannula 2.0 11/17/20 08:51 81 144/63 11/17/20 08:00 96.8 81 19 144/63 (90) 100 11/17/20 05:58 137/62 11/17/20 04:00 97.7 77 20 137/62 (87) 97 11/17/20 00:33 143/64 11/17/20 00:00 98.2 123 17 141/67 (91) 97 11/17/20 00:00 98.2 82 17 144/67 (92) 97 11/16/20 22:16 Nasal Cannula 2.0 11/16/20 20:00 100.0 80 18 136/63 (87) 99 11/16/20 17:25 133/71 11/16/20 16:00 98.0 82 18 133/71 (91) 99 Intake and Output 11/16/20 11/17/20 19:00 07:00 Intake Total 200 ml 118 ml Balance 200 ml 118 ml Intake Oral 200 ml Other 118 ml # Voids 2 # Bowel Movements 1 Laboratory Tests 11/16/20 16:23: POC Whole Blood Glucose 146H 11/16/20 20:58: POC Whole Blood Glucose [Pending] 11/17/20 05:41: POC Whole Blood Glucose [Pending] Height (Feet): 5 Height (Inches): 1.00 Weight (Pounds): 92 General Appearance: alert EENT: PERRL/EOMI Neck: supple Cardiovascular: regular rhythm Respiratory/Chest: lungs clear Abdomen: non tender, soft Extremities: non-tender Assessment/Plan Status: not improved Assessment/Plan: 1 sob 2 covid pna cont isolation 3 chf diastolic acute 4 esrd on hd 5 failure of thrive 6 dementia 7 dm poory controlled due to steroids 8 hypotension 9 hyperkalemia rpt ok add levamier and high dose short insulin pt/ot eval dw pt pt is very weak id for evaluation for rpt covid for dc plan cardio and pulmonary consult off abx off isolation dc plan to snf Cesar Swanson MD Nov 17, 2020 12:34
--- NOTE | 2020-11-17 15:08 | Nephrology Progress Note ---
Assessment/Plan Problem List: (1) End stage renal disease on dialysis (2) C. difficile colitis (3) Transient hypotension (4) Diastolic CHF, chronic Assessment 75-year-old female presents with respiratory distress and COVID-19 infection Patient has end-stage renal disease and last dialyzed 4 days ago Patient presents with high potassium History of C. difficile colitis History of diabetes mellitus History of hypertension, presents with transient hypotension History of cardiomyopathy and diastolic CHF Plan November 17: Due for dialysis today. Continue her current management. No labs drawn today. November 16: Last dialysis November 14. Will order dialysis for tomorrow. Medication list reviewed. Continue per consultants. November 15: Dialyzed yesterday. 2 L removed. No labs drawn today. We will continue to monitor her renal parameters and dialysis as needed. November 14: Last dialysis November 12. Due for dialysis today. Labs reviewed. Medication list reviewed. Stable from renal standpoint of view. November 13: Dialyzed yesterday. Labs reviewed. Stable from renal standpoint of view. Next hemodialysis tomorrow. November 12: Due for dialysis today. No chemistry panel done today. Blood pressure stable. Continue per current management. November 11: Last dialysis November 09. No labs drawn today yet. We will order dialysis tomorrow. November 10: Patient was dialyzed yesterday. Potassium now within normal limit. Blood pressure stable. Continue same. November 09: Due for dialysis today. Labs reviewed. Potassium 5.6 which will be corrected after dialysis. Will check repeat lab tomorrow. November 08: Dialyzed yesterday. Labs reviewed. Continue per consultants. Due for dialysis tomorrow. November 07: Due for dialysis today. Blood pressure medication adjusted. Will check lab tomorrow. November 06: Labs reviewed. Medication list reviewed. Will order dialysis for tomorrow. Continue per consultants. Hydralazine 25 mg as needed for high blood pressure ordered. November 05: Discussed with dialysis nurse. Patient was dialyzed late last night. However today's lab results suggestive of high BUN and creatinine. Serum potassium elevated but the repeat is normal. Will hold the Kayexalate. Will attempt another dialysis and order post BUN and creatinine. Reevaluation on November 05 at 3 PM: Stat BMP done as it appears this morning's lab was prior to dialysis even though it was marked 6 AM. The stat dialysis orders will be canceled based on new lab results. Will arrange for next dialysis on November 07 unless she needs it earlier. November 04: Patient due for dialysis today. Blood pressure stable. No UF is scheduled during dialysis. Check labs tomorrow. No can panel drawn today. November 03: Patient was dialyzed yesterday. Labs reviewed. Blood pressure more stable. Due for dialysis tomorrow. No ultrafiltration is ordered. November 02: Dialyzed today. Blood pressure 95 systolic. Parameters for BP medications. Patient asymptomatic. Albumin 25% 100 cc 1 bolus dose ordered. Continue rest. Discussed with RN. November 01: Dialyzed yesterday. Labs reviewed. Medication list reviewed. Blood pressure medication adjusted. Hemodialysis tomorrow. October 31: Due for dialysis today. No labs drawn today. Continue per consultants. Will check can panel tomorrow. Medication list reviewed. Blood pressure stable. October 30: Last dialyzed October 29. Due for dialysis October 31. Continue per consultants. October 29: Patient dialyzed last evening of October 27. Serum creatinine and electrolyte much improved Continue per current treatment plan Per orders Next dialysis today October 29 Check labs in a.m. Subjective ROS Limited/Unobtainable: No Constitutional: Reports: malaise Objective Objective Last 24 Hour Vital Signs Date Time Temp Pulse Resp B/P (MAP) Pulse Ox O2 Delivery O2 Flow Rate FiO2 11/17/20 12:00 138/66 11/17/20 12:00 97.7 81 20 138/66 (90) 95 11/17/20 09:00 Nasal Cannula 2.0 11/17/20 08:51 81 144/63 11/17/20 08:00 96.8 81 19 144/63 (90) 100 11/17/20 05:58 137/62 11/17/20 04:00 97.7 77 20 137/62 (87) 97 11/17/20 00:33 143/64 11/17/20 00:00 98.2 123 17 141/67 (91) 97 11/17/20 00:00 98.2 82 17 144/67 (92) 97 11/16/20 22:16 Nasal Cannula 2.0 11/16/20 20:00 100.0 80 18 136/63 (87) 99 11/16/20 17:25 133/71 11/16/20 16:00 98.0 82 18 133/71 (91) 99 Intake and Output 11/16/20 11/17/20 19:00 07:00 Intake Total 200 ml 118 ml Balance 200 ml 118 ml Intake Oral 200 ml Other 118 ml # Voids 2 # Bowel Movements 1 Laboratory Tests 11/16/20 16:23: POC Whole Blood Glucose 146H 11/16/20 20:58: POC Whole Blood Glucose [Pending] 11/17/20 05:41: POC Whole Blood Glucose [Pending] 11/17/20 12:39: POC Whole Blood Glucose 117H Height (Feet): 5 Height (Inches): 1.00 Weight (Pounds): 92 General Appearance: no apparent distress Cardiovascular: normal rate Respiratory/Chest: decreased breath sounds Abdomen: distended Objective No change Chris Puckett MD Nov 17, 2020 15:08
[2020-11-17] MEDS ORDERED: 1/2 NS 1000ml IV ONE (15:41)
[2020-11-17 16:00] VITALS: BP 142/72
--- NOTE | 2020-11-17 17:30 | NUR ---
NURSE NOTES: Patient started on HD. Patient awake, alert, in stable condition.
--- NOTE | 2020-11-17 18:15 | Surgery Progress Note ---
Surgery Progress Note Subjective Symptoms: improved, tolerating diet, passing flatus, BM Objective Last 24 Hour Vital Signs Date Time Temp Pulse Resp B/P (MAP) Pulse Ox O2 Delivery O2 Flow Rate FiO2 11/17/20 17:14 142/72 11/17/20 16:00 97.7 82 20 142/72 (95) 97 11/17/20 12:00 138/66 11/17/20 12:00 97.7 81 20 138/66 (90) 95 11/17/20 09:00 Nasal Cannula 2.0 11/17/20 08:51 81 144/63 11/17/20 08:00 96.8 81 19 144/63 (90) 100 11/17/20 05:58 137/62 11/17/20 04:00 97.7 77 20 137/62 (87) 97 11/17/20 00:33 143/64 11/17/20 00:00 98.2 123 17 141/67 (91) 97 11/17/20 00:00 98.2 82 17 144/67 (92) 97 11/16/20 22:16 Nasal Cannula 2.0 11/16/20 20:00 100.0 80 18 136/63 (87) 99 I&O Intake and Output 11/16/20 11/17/20 19:00 07:00 Intake Total 200 ml 118 ml Balance 200 ml 118 ml Intake Oral 200 ml Other 118 ml # Voids 2 # Bowel Movements 1 Dressing: saturated Cardiovascular: RSR Respiratory: decreased breath sounds Abdomen: soft, non-tender, present bowel sounds Extremities: no tenderness, no cyanosis Laboratory Tests Test 11/16/20 20:58 11/17/20 05:41 11/17/20 12:39 POC Whole Blood Glucose Pending Pending 117 MG/DL (74-106) H Plan Problems: (1) Decubitus skin ulcer Assessment & Plan: Pt presented on admission with multiple Pressure Injuries. DTPI Sacrum(L)8cm x (W)8cm. Base of wound is purpuric with surrounding non- Blanchable erythema. Darker skin tone without erythema or induration periwound. Pt complained at site of DTPI when minimally palpated. Non-Blanchable erythema without induration R Ischium(L)7cm x (W)7.5cm. L Heel is boggy with non-Blanchable erythema. R heel is Boggy with non-blanchable erythema. Tx.Plan: Apply Moisture Barrier Paste to Sacrum. Cover with Optifoam drsg. Change every 3 days and prn.. Apply Moisture Barrier Paste to R and L Ischial tuberosities. Cover each Ischium with Optifoam drsgs. Change every 3 days and prn. Apply Cavilon Skin Barrier to R and L Heels and each Malleoli. Cover each site with Optifoam drsgs. Change every 7 days and prn. Cover Bony prominences as needed with Optifoam drsgs. Reposition at least every 2 hours or as tolerated. Off-load heels with Pillow. (2) Dyspnea (3) Respiratory distress (4) Pneumonia due to COVID-19 virus Assessment & Plan: ++ on tx id and pulm input appreciated limited movement will need to be cautions to ensure not worsening decub (5) Hypoglycemia (6) End stage renal disease on dialysis (7) Transient hypotension (8) Diastolic CHF, chronic (9) C. difficile colitis (10) Diarrhea Assessment & Plan: DAILY ESTIMATED NEEDS: Needs based on ESRD on HD 42kg 30-40 kcals/kg 5604-5605 total kcals 1.25-1.8 g protein/kg 53-76 g total protein Fluid per MD, on HD NUTRITION DIAGNOSIS: Increased kcal and pro needs r/t renal dysfunction, wound healing as evidenced by pt w/ ESRD on HD, admitted w/ wounds, including sacral DTPI. CURRENT DIET:Renal diet PO DIET RECOMMENDATIONS: Renal + CCHO MED diet/ texture per MELANGEUR OPERATOR ADDITIONAL RECOMMENDATIONS: 1) Daily wts, calibrated bed scale 2) Rec MELANGEUR OPERATOR eval for appropriate texture 3) Add NEPRO QD (425kcal/19g prot), monitor need for additional 4) Monitor for hypoglycemia (BG 68 this am) -> DC or LOWER LEVEMIR @ QHS- pt now w/ improved BG, hypoglycemic episodes 5) Wound healing: Nephrovite x 1, ZnSO4 220mg QD x 10 days Abdirahman BID as tolerated (11) ESRD (end stage renal disease) (12) Altered mental status (13) Pneumonia Kurt Flores Nov 17, 2020 18:15
--- NOTE | 2020-11-17 19:29 | NUR ---
NURSE HAND-OFF: Important Events on Shift:HD Patient Status: stable Diet: renal Pending Orders: n/a Pending Results/Labs:n.a Pending MD notification:n.a Latest Vital Signs: Temperature 97.7 , Pulse 82 , B/P 142 /72 , Respiratory Rate 20 , O2 SAT 97 , Nasal Cannula, O2 Flow Rate 2.0 . Vital Sign Comment: stable Latest Ness Fall Score: 50 Fall Risk: High Risk Safety Measures: Call light Within Reach, Bed Alarm Zone 1, Side Rails Side Rails x2, Bed position Low and Locked. Fall Precautions: Yellow Socks Yellow Gown Door Sign Patient Fall Education Report given to ZENAIDA Booker.
[2020-11-17 20:00] VITALS: BP 145/68
[2020-11-17] MEDS: Levemir Flexpen SUBQ SCH (20:00)
--- NOTE | 2020-11-17 21:00 | NUR ---
NURSE NOTES: Pt is in bed, awake and verbal. No acute distress noted. Vitals stable. Pt is on 2L n/c. Pt states feeling ok. Daughter called asking about the patient, daughter was updated. Blood sugar 117. Pt has discharge plan back to [facility]. Fall precaution in place, bed alarm on, side rails up and call light within reach. Pt will be monitored.
[2020-11-18] VITALS: BP 141/78
[2020-11-18 04:00] VITALS: BP 145/84
--- NOTE | 2020-11-18 06:00 | NUR ---
NURSE NOTES: Pt is on bed awake. Blood sugar 98. Pt repositioned.
[2020-11-18] MEDS: NovoLOG Insulin Flexpen SUBQ SCH ×4 (06:26→21:00)
[2020-11-18] MEDS: HydrALAZINE 25mg tab ORAL SCH ×4 (06:27→17:16)
--- NOTE | 2020-11-18 06:52 | Hematology/Onc Progress Note ---
Assessment/Plan Assessment/Plan # Anemia of chronic disease due to underlying chronic medical issues, multifactorial v Gi bleed --> Anemia workup has been ordered, rule out gi bleed --> No evidence of hemolysis is noted, peripheral smear has been reviewed. --> Hgb goal >7. Transfuse prn --> Epogen or iron at this time is not particularly indicated --> Medications have been reviewed --> low threshold for gi evaluation in case has occult + --> hgb 11-->9.6-->10.4->9.8 # Thrombocytopenia due to Covid pna++++++++ --> cont isolation -> completed steriods --> per pulm recs --> plt 160-->98-->147 --> supportive care --> hep and hiv are neg # chf diastolic acute -> cards aware # Esrd on hd --> per renal # failure of thrive # dementia # dm poory controlled due to steroids Appreciate consultation and dw PCP Subjective HEENT: Denies: no symptoms, eye pain, blurred vision, tearing, double vision, ear pain, ear discharge, nose pain, nose congestion, throat pain, throat swelling, mouth pain, mouth swelling, other Cardiovascular: Denies: no symptoms, chest pain, edema, irregular heart rate, lightheadedness, palpitations, syncope, other Respiratory: Denies: no symptoms, cough, shortness of breath, SOB with excertion, SOB at rest, sputum, wheezing, other Gastrointestinal/Abdominal: Denies: no symptoms, abdomen distended, abdominal pain, black stools, tarry stools, blood in stool, constipated, diarrhea, difficulty swallowing, nausea, poor appetite, poor fluid intake, rectal bleeding, vomiting, other Genitourinary: Denies: no symptoms, burning, discharge, frequency, flank pain, hematuria, incontinence, pain, urgency, other Neurologic/Psychiatric: Denies: no symptoms, anxiety, depressed, emotional problems, headache, numbness, paresthesia, pre-existing deficit, seizure, tingling, tremors, weakness, other Endocrine: Denies: no symptoms, excessive sweating, flushing, intolerance to cold, intolerance to heat, increased hunger, increased thirst, increased urine, unexplained weight gain, unexplained weight loss, other Allergies: Coded Allergies: No Known Allergies (Unverified , 09/23/20) Subjective 11/04 labs are noted, no bleeding, meds reviewed, on steriods, seen by pulm 11/05 hd done yesterday, no bleeding, cbc is pending 11/06 awake, alert, labs are pending, reviewed service loss control consultant recs 11/07 meds reviewed, labs noted, no bleeding 11/08 labs are noted, no bleeding, meds are reviewed 11/10 meds noted, no bleeding, no f/c, no bleeding 11/11 hgb 10.1 yest, pending for today cbc/bmp 11/12 is on nc, no bleeding, plt lower ordered hep, hiv us abd 11/13 is on 2lnc, no bleeding, meds reviewed, labs noted 11/14 on 2l, labs pending, no bleeding, meds reviewed 11/15 no events, on 2l nc, meds noted 11/17 no events, nobleeding, asymptomatic, no night sweats noted 11/18 labs noted, meds reviewed, no major events, no bleeding Objective Objective Current Medications Medications (Trade) Dose Ordered Sig/Yeimi Route PRN Reason Start Time Stop Time Status Last Admin Dose Admin Acetaminophen (Tylenol) 650 mg Q4H PRN ORAL Temp >100.5 10/27/20 14:15 11/26/20 14:14 11/05/20 17:22 Amlodipine Besylate (Norvasc) 5 mg DAILY ORAL 11/08/20 09:00 12/08/20 08:59 11/16/20 08:57 Citalopram Hydrobromide (CeleXA) 20 mg DAILY ORAL 10/29/20 09:00 11/28/20 08:59 11/17/20 08:48 Dextrose (Dextrose 50%) 25 ml Q30M PRN IV Hypoglycemia 10/28/20 20:45 01/26/21 20:44 Dextrose (Dextrose 50%) 50 ml Q30M PRN IV Hypoglycemia 10/28/20 20:45 01/26/21 20:44 Docusate Sodium (Colace) 100 mg TWICE A DAY ORAL 10/28/20 18:00 11/27/20 17:59 11/17/20 17:14 Haloperidol Lactate (Haldol) 5 mg Q6H PRN IM Agitation 10/28/20 15:45 12/12/20 15:44 Hydralazine HCl (Apresoline) 25 mg Q4H PRN ORAL For BP over 160 systolic 11/06/20 16:15 02/04/21 16:14 Hydralazine HCl (Apresoline) 25 mg Q6HR ORAL 11/07/20 18:00 02/05/21 17:59 11/18/20 06:27 Insulin Aspart (NovoLOG) BEFORE MEALS AND HS SUBQ 10/28/20 21:00 01/26/21 20:59 11/16/20 16:29 Insulin Detemir (Levemir) 10 units Q24H SUBQ 10/29/20 20:00 01/27/21 19:59 11/16/20 21:01 Megestrol Acetate (Megace) 400 mg DAILY ORAL 10/28/20 09:00 01/26/21 08:59 11/17/20 08:46 Pantoprazole (Protonix) 40 mg EVERY 12 HOURS ORAL 10/28/20 21:00 11/27/20 20:59 11/17/20 21:00 Sevelamer Carbonate (Renvela) 800 mg THREE TIMES A DAY ORAL 10/28/20 13:00 01/26/21 12:59 11/17/20 17:14 Last 24 Hour Vital Signs Date Time Temp Pulse Resp B/P (MAP) Pulse Ox O2 Delivery O2 Flow Rate FiO2 11/18/20 06:27 142/82 11/18/20 00:00 97.2 80 20 141/78 (99) 97 11/18/20 00:00 141/78 11/17/20 21:00 Nasal Cannula 2.0 11/17/20 20:00 97.5 82 20 145/68 (93) 97 11/17/20 17:14 142/72 11/17/20 16:00 97.7 82 20 142/72 (95) 97 11/17/20 12:00 138/66 11/17/20 12:00 97.7 81 20 138/66 (90) 95 11/17/20 09:00 Nasal Cannula 2.0 11/17/20 08:51 81 144/63 11/17/20 08:00 96.8 81 19 144/63 (90) 100 11/17/20 05:58 137/62 11/17/20 04:00 97.7 77 20 137/62 (87) 97 11/17/20 00:33 143/64 11/17/20 00:00 98.2 123 17 141/67 (91) 97 11/17/20 00:00 98.2 82 17 144/67 (92) 97 11/16/20 22:16 Nasal Cannula 2.0 11/16/20 20:00 100.0 80 18 136/63 (87) 99 11/16/20 17:25 133/71 11/16/20 16:00 98.0 82 18 133/71 (91) 99 11/16/20 12:10 138/70 11/16/20 12:00 97.3 77 17 138/70 (92) 99 11/16/20 09:00 Nasal Cannula 2.0 11/16/20 08:57 80 150/65 11/16/20 08:00 98.4 80 18 150/65 (93) 100 Intake and Output 11/17/20 11/18/20 19:00 07:00 Intake Total 500 ml Output Total 2000 ml Balance 500 ml -2000 ml Intake Oral 500 ml Hemodialysis UF 2000 ml # Voids 1 Labs Test 11/15/20 11:24 11/15/20 16:20 11/15/20 21:02 11/16/20 05:17 POC Whole Blood Glucose 105 MG/DL (74-106) 109 MG/DL (74-106) Test 11/16/20 07:15 11/16/20 07:57 11/16/20 11:35 11/16/20 16:23 White Blood Count 6.4 K/UL (4.8-10.8) Red Blood Count 3.13 M/UL (4.20-5.40) Hemoglobin 9.8 G/DL (12.0-16.0) Hematocrit 30.0 % (37.0-47.0) Mean Corpuscular Volume 96 FL (80-99) Mean Corpuscular Hemoglobin 31.4 PG (27.0-31.0) Mean Corpuscular Hemoglobin Concent 32.7 G/DL (32.0-36.0) Red Cell Distribution Width 17.7 % (11.6-14.8) Platelet Count 147 K/UL (150-450) Mean Platelet Volume 8.8 FL (6.5-10.1) Neutrophils (%) (Auto) 65.0 % (45.0-75.0) Lymphocytes (%) (Auto) 20.1 % (20.0-45.0) Monocytes (%) (Auto) 12.3 % (1.0-10.0) Eosinophils (%) (Auto) 1.1 % (0.0-3.0) Basophils (%) (Auto) 1.5 % (0.0-2.0) Sodium Level 137 MMOL/L (136-145) Potassium Level 4.8 MMOL/L (3.5-5.1) Chloride Level 100 MMOL/L (98-107) Carbon Dioxide Level 30 MMOL/L (21-32) Anion Gap 7 mmol/L (5-15) Blood Urea Nitrogen 70 mg/dL (7-18) Creatinine 6.0 MG/DL (0.55-1.30) Estimat Glomerular Filtration Rate 6.8 mL/min (>60) Glucose Level 70 MG/DL (74-106) Calcium Level 9.1 MG/DL (8.5-10.1) Phosphorus Level 5.3 MG/DL (2.5-4.9) Magnesium Level 2.1 MG/DL (1.8-2.4) Total Bilirubin 0.4 MG/DL (0.2-1.0) Aspartate Amino Transf (AST/SGOT) 15 U/L (15-37) Alanine Aminotransferase (ALT/SGPT) 10 U/L (12-78) Alkaline Phosphatase 86 U/L (46-116) Total Protein 7.5 G/DL (6.4-8.2) Albumin 2.8 G/DL (3.4-5.0) Globulin 4.7 g/dL Albumin/Globulin Ratio 0.6 (1.0-2.7) POC Whole Blood Glucose 89 MG/DL (74-106) 146 MG/DL (74-106) Test 11/16/20 20:58 11/17/20 05:41 11/17/20 12:39 11/18/20 06:04 POC Whole Blood Glucose 117 MG/DL (74-106) 98 MG/DL (74-106) Height (Feet): 5 Height (Inches): 1.00 Weight (Pounds): 92 Objective Gen: nad Pulm: ctab CV: rrr Abd: soft, nt, nd ext: no cce Timothy Lam MD Nov 18, 2020 06:52
--- NOTE | 2020-11-18 07:20 | NUR ---
NURSE HAND-OFF: Important Events on Shift:[] Patient Status: [Stable] Diet: [] Pending Orders: [] Pending Results/Labs:[] Pending MD notification:[] Latest Vital Signs: Temperature 97.1 , Pulse 85 , B/P 142 /82 , Respiratory Rate 20 , O2 SAT 97 , Nasal Cannula, O2 Flow Rate 2.0 . Vital Sign Comment: [] Latest Ness Fall Score: 50 Fall Risk: High Risk Safety Measures: Call light Within Reach, Bed Alarm Zone 1, Side Rails Side Rails x2, Bed position Low and Locked. Fall Precautions: Yellow Socks Yellow Gown Door Sign Patient Fall Education Report given to [Bere HernandezRN].
--- NOTE | 2020-11-18 07:22 | NUR ---
NURSE NOTES: Received patient in bed awake and verbal. No sign of respiratory distress, on O2 at 2L via NC, On fall , aspiration percaution, turn q2h for comfort and good circulation, bed alarm on, side rails up and call light within reach. will continue to monitor patient condition edwin whitehead
[2020-11-18 08:25] VITALS: BP 141/66
[2020-11-18 08:58] LABS: HEMATOCRIT 31.3 % (37.0-47.0); HEMOGLOBIN 10.3 G/DL (12.0-16.0); MEAN CORPUSCULAR VOLUME 96 FL (80-99); PLATELET COUNT 44 K/UL (150-450); RED BLOOD COUNT 3.27 M/UL (4.20-5.40); RED CELL DISTRIBUTION WIDTH 17.3 % (11.6-14.8); WHITE BLOOD COUNT 5.5 K/UL (4.8-10.8)
[2020-11-18] MEDS: Docusate 100mg cap ORAL SCH ×2 (09:17→17:16)
[2020-11-18] MEDS: Megace 400mg/10ml Susp ORAL SCH (09:17)
[2020-11-18] MEDS: Citalopram Hydrobromide 10mg Tab ORAL SCH (09:17)
--- NOTE | 2020-11-18 09:53 | Pulmonology Progress Note ---
Subjective ROS Limited/Unobtainable: No Interval Events: None new reported Constitutional: Denies: fever, chills HEENT: Repors: no symptoms Respiratory: Reports: no symptoms Cardiovascular: Reports: no symptoms Gastrointestinal/Abdominal: Denies: nausea, vomiting, diarrhea Musculoskeletal: Denies: pain Allergies: Coded Allergies: No Known Allergies (Unverified , 09/23/20) Objective Last 24 Hour Vital Signs Date Time Temp Pulse Resp B/P (MAP) Pulse Ox O2 Delivery O2 Flow Rate FiO2 11/18/20 09:17 84 141/66 11/18/20 08:25 98.1 84 20 141/66 (91) 94 11/18/20 06:27 142/82 11/18/20 04:00 97.1 85 20 145/84 (104) 97 11/18/20 00:00 97.2 80 20 141/78 (99) 97 11/18/20 00:00 141/78 11/17/20 21:00 Nasal Cannula 2.0 11/17/20 20:00 97.5 82 20 145/68 (93) 97 11/17/20 17:14 142/72 11/17/20 16:00 97.7 82 20 142/72 (95) 97 11/17/20 12:00 138/66 11/17/20 12:00 97.7 81 20 138/66 (90) 95 Intake and Output 11/17/20 11/18/20 19:00 07:00 Intake Total 500 ml 460 ml Output Total 2000 ml Balance 500 ml -1540 ml Intake Oral 500 ml 460 ml Hemodialysis UF 2000 ml # Voids 1 2 Objective 11/18 s/p dialysis yesterday, 2L removed; saturating well on 2L NC 11/15 now on room air saturating 95-96% 11/13 s/p dialysis, 2L removed; saturating well on 2L NC 11/12 due for dialysis and abd US today, NPO 11/11 no change 11/10 s/p dialysis; 1.6L removed; saturating well on 2 lpm NC 11/09 due for dialysis today; continues to saturate well on 2 lpm NC 11/08 s/p dialysis; saturating well on 2 lpm NC 11/07/2020 s/p dialysis 11/06/2020 pt being seen by PT; saturating well on 2 lpm NC; due for dialysis today 11/05/2020 pt asleep; s/p dialysis; saturating well on 2 lpm NC 11/04/2020 pt asleep; saturating well on 2 lpm NC; NAD 11/03/2020 saturating well on 2 lpm NC; eating in bed; NAD 11/02/2020 saturating well on 1 lpm NC; s/p dialysis 11/01/2020 saturating well on 1 lpm NC 10/31/2020 patient alert; saturating well on 1 lpm NC 10/30/2020 pt asleep; saturating well on low flow oxygen 10/29/2020 pt asleep in bed; saturating well on low flow oxygen General Appearance: other - thin HEENT: normocephalic, atraumatic Respiratory: chest wall non-tender, rhonchi - bilaterally, other - dialysis catheter Cardiovascular: normal rate, regular rhythm Abdomen: soft, non tender Laboratory Tests 11/17/20 12:39: POC Whole Blood Glucose 117H 11/18/20 06:04: POC Whole Blood Glucose 98 11/18/20 08:10: White Blood Count 5.5, Red Blood Count 3.27L, Hemoglobin 10.3L, Hematocrit 31.3L , Mean Corpuscular Volume 96, Mean Corpuscular Hemoglobin 31.5H, Mean Corpuscular Hemoglobin Concent 32.9, Red Cell Distribution Width 17.3H, Platelet Count 44L, Mean Platelet Volume 10.2H, Neutrophils (%) (Auto) , Lymphocytes (%) (Auto) , Monocytes (%) (Auto) , Eosinophils (%) (Auto) , Basophils (%) (Auto) , Neutrophils % (Manual) [Pending], Lymphocytes % (Manual) [Pending], Platelet Estimate [Pending], Platelet Morphology [Pending], Sodium Level [Pending], Potassium Level [Pending], Chloride Level [Pending], Carbon Dioxide Level [Pending], Blood Urea Nitrogen [Pending], Creatinine [Pending], Estimat Glomerular Filtration Rate [Pending], Glucose Level [Pending], Calcium Level [Pending], Phosphorus Level [Pending], Magnesium Level [Pending], Total Bilirubin [Pending], Aspartate Amino Transf (AST/SGOT) [Pending], Alanine Aminotransferase (ALT/SGPT) [Pending], Alkaline Phosphatase [Pending], Total Protein [Pending], Albumin [Pending], Globulin [Pending] Current Medications Medications (Trade) Dose Ordered Sig/Yeimi Route PRN Reason Start Time Stop Time Status Last Admin Dose Admin Acetaminophen (Tylenol) 650 mg Q4H PRN ORAL Temp >100.5 10/27/20 14:15 11/26/20 14:14 11/05/20 17:22 Amlodipine Besylate (Norvasc) 5 mg DAILY ORAL 11/08/20 09:00 12/08/20 08:59 11/18/20 09:17 Citalopram Hydrobromide (CeleXA) 20 mg DAILY ORAL 10/29/20 09:00 11/28/20 08:59 11/18/20 09:17 Dextrose (Dextrose 50%) 25 ml Q30M PRN IV Hypoglycemia 10/28/20 20:45 01/26/21 20:44 Dextrose (Dextrose 50%) 50 ml Q30M PRN IV Hypoglycemia 10/28/20 20:45 01/26/21 20:44 Docusate Sodium (Colace) 100 mg TWICE A DAY ORAL 10/28/20 18:00 11/27/20 17:59 11/18/20 09:17 Haloperidol Lactate (Haldol) 5 mg Q6H PRN IM Agitation 10/28/20 15:45 12/12/20 15:44 Hydralazine HCl (Apresoline) 25 mg Q4H PRN ORAL For BP over 160 systolic 11/06/20 16:15 02/04/21 16:14 Hydralazine HCl (Apresoline) 25 mg Q6HR ORAL 11/07/20 18:00 02/05/21 17:59 11/18/20 06:27 Insulin Aspart (NovoLOG) BEFORE MEALS AND HS SUBQ 10/28/20 21:00 01/26/21 20:59 11/16/20 16:29 Insulin Detemir (Levemir) 10 units Q24H SUBQ 10/29/20 20:00 01/27/21 19:59 11/16/20 21:01 Megestrol Acetate (Megace) 400 mg DAILY ORAL 10/28/20 09:00 01/26/21 08:59 11/18/20 09:17 Pantoprazole (Protonix) 40 mg EVERY 12 HOURS ORAL 10/28/20 21:00 11/27/20 20:59 11/18/20 09:17 Sevelamer Carbonate (Renvela) 800 mg THREE TIMES A DAY ORAL 10/28/20 13:00 01/26/21 12:59 11/18/20 09:17 Assessment/Plan Assessment/Plan 1. COVID-19 pneumonia. - CXR 10/27/2020 shows multifocal infiltrate. - abd US 11/12/2020 shows large left, and small right pleural effusion - s/p decadron - s/p ceftriaxone and azithromycin. - Repeat COVID-19 test 10/29/2020 positive - Repeat COVID-19 PCR 11/11 negative - now off respiratory isolation - currently on 2L NC saturating well; cont monitor SaO2, keep it above 92%; wean down oxygen 2. Renal failure, on dialysis. - per renal 3. Congestive heart failure. - BNP >35,000 - 2D echo EF 35-40% - management per cardio 4. Right eye conjunctivitis. - improved 5. DVT ppx - D-dimer 3.08, CRP 16.1 -> 4.0 - 10/29/2020 venous ultrasound unremarkable - On SCD 6. hyperkalemia - per renal Abdominal tenderness - US of abd 11/12 Coarsened liver echogenicity, nonspecific but could indicate hepatocellular disease dc planning to [facility] noted The care of this patient was discussed with my supervising physician Time spent for this encounter was approximately 31 minutes Zbigniew Serrano Nov 18, 2020 09:53
[2020-11-18 10:02] LABS: ALBUMIN 2.6 G/DL (3.4-5.0); ALBUMIN/GLOBULIN RATIO 0.5 (1.0-2.7); BILIRUBIN,TOTAL 0.5 MG/DL (0.2-1.0); CREATININE 4.5 MG/DL (0.55-1.30); PHOSPHORUS 4.7 MG/DL (2.5-4.9); POTASSIUM 4.7 MMOL/L (3.5-5.1)
--- NOTE | 2020-11-18 10:45 | General Progress Note ---
Subjective Allergies: Coded Allergies: No Known Allergies (Unverified , 09/23/20) Subjective awake eating better off isolation Objective Last 24 Hour Vital Signs Date Time Temp Pulse Resp B/P (MAP) Pulse Ox O2 Delivery O2 Flow Rate FiO2 11/18/20 09:17 84 141/66 11/18/20 09:10 Nasal Cannula 2.0 11/18/20 08:25 98.1 84 20 141/66 (91) 94 11/18/20 06:27 142/82 11/18/20 04:00 97.1 85 20 145/84 (104) 97 11/18/20 00:00 97.2 80 20 141/78 (99) 97 11/18/20 00:00 141/78 11/17/20 21:00 Nasal Cannula 2.0 11/17/20 20:00 97.5 82 20 145/68 (93) 97 11/17/20 17:14 142/72 11/17/20 16:00 97.7 82 20 142/72 (95) 97 11/17/20 12:00 138/66 11/17/20 12:00 97.7 81 20 138/66 (90) 95 Intake and Output 11/17/20 11/18/20 19:00 07:00 Intake Total 500 ml 460 ml Output Total 2000 ml Balance 500 ml -1540 ml Intake Oral 500 ml 460 ml Hemodialysis UF 2000 ml # Voids 1 2 Laboratory Tests 11/17/20 12:39: POC Whole Blood Glucose 117H 11/18/20 06:04: POC Whole Blood Glucose 98 11/18/20 08:10: White Blood Count 5.5, Red Blood Count 3.27L, Hemoglobin 10.3L, Hematocrit 31.3L , Mean Corpuscular Volume 96, Mean Corpuscular Hemoglobin 31.5H, Mean Corpuscular Hemoglobin Concent 32.9, Red Cell Distribution Width 17.3H, Platelet Count 44L, Mean Platelet Volume 10.2H, Neutrophils (%) (Auto) , Lymphocytes (%) (Auto) , Monocytes (%) (Auto) , Eosinophils (%) (Auto) , Basophils (%) (Auto) , Neutrophils % (Manual) [Pending], Lymphocytes % (Manual) [Pending], Platelet Estimate [Pending], Platelet Morphology [Pending], Sodium Level 138, Potassium Level 4.7, Chloride Level 101, Carbon Dioxide Level 31, Anion Gap 6, Blood Urea Nitrogen 44H, Creatinine 4.5H, Estimat Glomerular Filtration Rate 9.5, Glucose Level 97, Calcium Level 9.0, Phosphorus Level 4.7, Magnesium Level 2.1, Total Bilirubin 0.5, Aspartate Amino Transf (AST/SGOT) 25, Alanine Aminotransferase (ALT/SGPT) 7L, Alkaline Phosphatase 93, Total Protein 7.4, Albumin 2.6L, Globulin 4.8, Albumin/Globulin Ratio 0.5L Height (Feet): 5 Height (Inches): 1.00 Weight (Pounds): 92 General Appearance: alert EENT: PERRL/EOMI Neck: supple Cardiovascular: regular rhythm Respiratory/Chest: lungs clear Abdomen: non tender, soft Extremities: non-tender Assessment/Plan Status: not improved Assessment/Plan: 1 sob 2 covid pna cont isolation 3 chf diastolic acute 4 esrd on hd 5 failure of thrive 6 dementia 7 dm poory controlled due to steroids 8 hypotension 9 hyperkalemia rpt ok add levamier and high dose short insulin pt/ot eval dw pt pt is very weak id for evaluation for rpt covid for dc plan cardio and pulmonary consult off abx off isolation dc plan to snf Cesar Swanson MD Nov 18, 2020 10:45
--- NOTE | 2020-11-18 12:10 | Infectious Diseases Prog Note ---
Assessment/Plan Assessment/Plan antibiotics : none A 1. COVID-19 pneumonia on 2 L oxygen with O2 saturation of 94 %. s/p ivermectin s/p decadron 2. Renal failure, on dialysis. 3. Congestive heart failure. 4. Right eye conjunctivitis resolved 5. hypertension P 1. continue off antibiotics 2. d/c isolation Subjective ROS Limited/Unobtainable: Yes Allergies: Coded Allergies: No Known Allergies (Unverified , 09/23/20) Objective Last 24 Hour Vital Signs Date Time Temp Pulse Resp B/P (MAP) Pulse Ox O2 Delivery O2 Flow Rate FiO2 11/18/20 09:17 84 141/66 11/18/20 09:10 Nasal Cannula 2.0 11/18/20 08:25 98.1 84 20 141/66 (91) 94 11/18/20 06:27 142/82 11/18/20 04:00 97.1 85 20 145/84 (104) 97 11/18/20 00:00 97.2 80 20 141/78 (99) 97 11/18/20 00:00 141/78 11/17/20 21:00 Nasal Cannula 2.0 11/17/20 20:00 97.5 82 20 145/68 (93) 97 11/17/20 17:14 142/72 11/17/20 16:00 97.7 82 20 142/72 (95) 97 Height (Feet): 5 Height (Inches): 1.00 Weight (Pounds): 92 Laboratory Tests Test 11/17/20 12:39 11/17/20 16:00 11/17/20 21:03 11/18/20 06:04 POC Whole Blood Glucose 117 MG/DL (74-106) H 137 MG/DL (74-106) H 115 MG/DL (74-106) H 98 MG/DL (74-106) Test 11/18/20 08:10 11/18/20 11:45 White Blood Count 5.5 K/UL (4.8-10.8) Red Blood Count 3.27 M/UL (4.20-5.40) L Hemoglobin 10.3 G/DL (12.0-16.0) L Hematocrit 31.3 % (37.0-47.0) L Mean Corpuscular Volume 96 FL (80-99) Mean Corpuscular Hemoglobin 31.5 PG (27.0-31.0) H Mean Corpuscular Hemoglobin Concent 32.9 G/DL (32.0-36.0) Red Cell Distribution Width 17.3 % (11.6-14.8) H Platelet Count 44 K/UL (150-450) L Mean Platelet Volume 10.2 FL (6.5-10.1) H Neutrophils (%) (Auto) % (45.0-75.0) Lymphocytes (%) (Auto) % (20.0-45.0) Monocytes (%) (Auto) % (1.0-10.0) Eosinophils (%) (Auto) % (0.0-3.0) Basophils (%) (Auto) % (0.0-2.0) Differential Total Cells Counted 100 Neutrophils % (Manual) 63 % (45-75) Lymphocytes % (Manual) 22 % (20-45) Monocytes % (Manual) 11 % (1-10) H Eosinophils % (Manual) 2 % (0-3) Basophils % (Manual) 2 % (0-2) Band Neutrophils 0 % (0-8) Platelet Estimate Decreased L Platelet Morphology Normal Anisocytosis 1+ Sodium Level 138 MMOL/L (136-145) Potassium Level 4.7 MMOL/L (3.5-5.1) Chloride Level 101 MMOL/L (98-107) Carbon Dioxide Level 31 MMOL/L (21-32) Anion Gap 6 mmol/L (5-15) Blood Urea Nitrogen 44 mg/dL (7-18) H Creatinine 4.5 MG/DL (0.55-1.30) H Estimat Glomerular Filtration Rate 9.5 mL/min (>60) Glucose Level 97 MG/DL (74-106) Calcium Level 9.0 MG/DL (8.5-10.1) Phosphorus Level 4.7 MG/DL (2.5-4.9) Magnesium Level 2.1 MG/DL (1.8-2.4) Total Bilirubin 0.5 MG/DL (0.2-1.0) Aspartate Amino Transf (AST/SGOT) 25 U/L (15-37) Alanine Aminotransferase (ALT/SGPT) 7 U/L (12-78) L Alkaline Phosphatase 93 U/L (46-116) Total Protein 7.4 G/DL (6.4-8.2) Albumin 2.6 G/DL (3.4-5.0) L Globulin 4.8 g/dL Albumin/Globulin Ratio 0.5 (1.0-2.7) L POC Whole Blood Glucose 123 MG/DL (74-106) H Current Medications Medications (Trade) Dose Ordered Sig/Yeimi Route PRN Reason Start Time Stop Time Status Last Admin Dose Admin Acetaminophen (Tylenol) 650 mg Q4H PRN ORAL Temp >100.5 10/27/20 14:15 11/26/20 14:14 11/05/20 17:22 Amlodipine Besylate (Norvasc) 5 mg DAILY ORAL 11/08/20 09:00 12/08/20 08:59 11/18/20 09:17 Citalopram Hydrobromide (CeleXA) 20 mg DAILY ORAL 10/29/20 09:00 11/28/20 08:59 11/18/20 09:17 Dextrose (Dextrose 50%) 25 ml Q30M PRN IV Hypoglycemia 10/28/20 20:45 01/26/21 20:44 Dextrose (Dextrose 50%) 50 ml Q30M PRN IV Hypoglycemia 10/28/20 20:45 01/26/21 20:44 Docusate Sodium (Colace) 100 mg TWICE A DAY ORAL 10/28/20 18:00 11/27/20 17:59 11/18/20 09:17 Haloperidol Lactate (Haldol) 5 mg Q6H PRN IM Agitation 10/28/20 15:45 12/12/20 15:44 Hydralazine HCl (Apresoline) 25 mg Q4H PRN ORAL For BP over 160 systolic 11/06/20 16:15 02/04/21 16:14 Hydralazine HCl (Apresoline) 25 mg Q6HR ORAL 11/07/20 18:00 02/05/21 17:59 11/18/20 06:27 Insulin Aspart (NovoLOG) BEFORE MEALS AND HS SUBQ 10/28/20 21:00 01/26/21 20:59 11/16/20 16:29 Insulin Detemir (Levemir) 10 units Q24H SUBQ 10/29/20 20:00 01/27/21 19:59 11/16/20 21:01 Megestrol Acetate (Megace) 400 mg DAILY ORAL 10/28/20 09:00 01/26/21 08:59 11/18/20 09:17 Pantoprazole (Protonix) 40 mg EVERY 12 HOURS ORAL 10/28/20 21:00 11/27/20 20:59 11/18/20 09:17 Sevelamer Carbonate (Renvela) 800 mg THREE TIMES A DAY ORAL 10/28/20 13:00 01/26/21 12:59 11/18/20 09:17 Erika Stiles MD Nov 18, 2020 12:10
[2020-11-18 12:18] VITALS: BP 138/63
--- NOTE | 2020-11-18 12:47 | NUR ---
STRUCTURAL DESIGNER NOTE S/W ALEXX AT [facility] [phone]. ALEXX REQUESTING UPDATED CLINICAL NOTE AND WILL FOLLOW UP IN RE TO READMISSION CURRENT CLINICALS FAXED TO Daniel [phone] Addendum: 11/18/20 at 1417 by MARILYN HUANG LVN F/U CALL MADE TO [facility]. S/W ALEXX. PATIENT ACCEPTED TO [facility], HOWEVER, NO BED AVAILABLE UNTIL 11/19/20. CM TO FOLLOW UP WITH [facility] IN AM FOR BED ASSIGNMENT.
--- NOTE | 2020-11-18 13:44 | Nephrology Progress Note ---
Assessment/Plan Problem List: (1) End stage renal disease on dialysis (2) C. difficile colitis (3) Transient hypotension (4) Diastolic CHF, chronic Assessment 75-year-old female presents with respiratory distress and COVID-19 infection Patient has end-stage renal disease and last dialyzed 4 days ago Patient presents with high potassium History of C. difficile colitis History of diabetes mellitus History of hypertension, presents with transient hypotension History of cardiomyopathy and diastolic CHF Plan November 18: Patient was dialyzed yesterday. Due for dialysis tomorrow. Labs reviewed. Stable from renal standpoint of view. November 17: Due for dialysis today. Continue her current management. No labs drawn today. November 16: Last dialysis November 14. Will order dialysis for tomorrow. Medication list reviewed. Continue per consultants. November 15: Dialyzed yesterday. 2 L removed. No labs drawn today. We will continue to monitor her renal parameters and dialysis as needed. November 14: Last dialysis November 12. Due for dialysis today. Labs reviewed. Medication list reviewed. Stable from renal standpoint of view. November 13: Dialyzed yesterday. Labs reviewed. Stable from renal standpoint of view. Next hemodialysis tomorrow. November 12: Due for dialysis today. No chemistry panel done today. Blood pressure stable. Continue per current management. November 11: Last dialysis November 09. No labs drawn today yet. We will order dialysis tomorrow. November 10: Patient was dialyzed yesterday. Potassium now within normal limit. Blood pressure stable. Continue same. November 09: Due for dialysis today. Labs reviewed. Potassium 5.6 which will be corrected after dialysis. Will check repeat lab tomorrow. November 08: Dialyzed yesterday. Labs reviewed. Continue per consultants. Due for dialysis tomorrow. November 07: Due for dialysis today. Blood pressure medication adjusted. Will check lab tomorrow. November 06: Labs reviewed. Medication list reviewed. Will order dialysis for tomorrow. Continue per consultants. Hydralazine 25 mg as needed for high blood pressure ordered. November 05: Discussed with dialysis nurse. Patient was dialyzed late last night. However today's lab results suggestive of high BUN and creatinine. Serum potassium elevated but the repeat is normal. Will hold the Kayexalate. Will attempt another dialysis and order post BUN and creatinine. Reevaluation on November 05 at 3 PM: Stat BMP done as it appears this morning's lab was prior to dialysis even though it was marked 6 AM. The stat dialysis orders will be canceled based on new lab results. Will arrange for next dialysis on November 07 unless she needs it earlier. November 04: Patient due for dialysis today. Blood pressure stable. No UF is scheduled during dialysis. Check labs tomorrow. No can panel drawn today. November 03: Patient was dialyzed yesterday. Labs reviewed. Blood pressure more stable. Due for dialysis tomorrow. No ultrafiltration is ordered. November 02: Dialyzed today. Blood pressure 95 systolic. Parameters for BP medications. Patient asymptomatic. Albumin 25% 100 cc 1 bolus dose ordered. Continue rest. Discussed with RN. November 01: Dialyzed yesterday. Labs reviewed. Medication list reviewed. Blood pressure medication adjusted. Hemodialysis tomorrow. October 31: Due for dialysis today. No labs drawn today. Continue per consultants. Will check can panel tomorrow. Medication list reviewed. Blood pressure stable. October 30: Last dialyzed October 29. Due for dialysis October 31. Continue per consultants. October 29: Patient dialyzed last evening of October 27. Serum creatinine and electrolyte much improved Continue per current treatment plan Per orders Next dialysis today October 29 Check labs in a.m. Subjective ROS Limited/Unobtainable: No Constitutional: Reports: malaise, weakness Objective Objective Last 24 Hour Vital Signs Date Time Temp Pulse Resp B/P (MAP) Pulse Ox O2 Delivery O2 Flow Rate FiO2 11/18/20 12:18 97.5 80 20 138/63 (88) 94 11/18/20 12:00 138/63 11/18/20 09:17 84 141/66 11/18/20 09:10 Nasal Cannula 2.0 11/18/20 08:25 98.1 84 20 141/66 (91) 94 11/18/20 06:27 142/82 11/18/20 04:00 97.1 85 20 145/84 (104) 97 11/18/20 00:00 97.2 80 20 141/78 (99) 97 11/18/20 00:00 141/78 11/17/20 21:00 Nasal Cannula 2.0 11/17/20 20:00 97.5 82 20 145/68 (93) 97 11/17/20 17:14 142/72 11/17/20 16:00 97.7 82 20 142/72 (95) 97 Intake and Output 11/17/20 11/18/20 19:00 07:00 Intake Total 500 ml 460 ml Output Total 2000 ml Balance 500 ml -1540 ml Intake Oral 500 ml 460 ml Hemodialysis UF 2000 ml # Voids 1 2 Laboratory Tests 11/17/20 16:00: POC Whole Blood Glucose 137H 11/17/20 21:03: POC Whole Blood Glucose 115H 11/18/20 06:04: POC Whole Blood Glucose 98 11/18/20 08:10: White Blood Count 5.5, Red Blood Count 3.27L, Hemoglobin 10.3L, Hematocrit 31.3L , Mean Corpuscular Volume 96, Mean Corpuscular Hemoglobin 31.5H, Mean Corpuscular Hemoglobin Concent 32.9, Red Cell Distribution Width 17.3H, Platelet Count 44L, Mean Platelet Volume 10.2H, Neutrophils (%) (Auto) , Lymphocytes (%) (Auto) , Monocytes (%) (Auto) , Eosinophils (%) (Auto) , Basophils (%) (Auto) , Differential Total Cells Counted 100, Neutrophils % (Manual) 63, Lymphocytes % (Manual) 22, Monocytes % (Manual) 11H, Eosinophils % (Manual) 2, Basophils % (Manual) 2, Band Neutrophils 0, Platelet Estimate DecreasedL, Platelet Morphology Normal, Anisocytosis 1+, Sodium Level 138, Potassium Level 4.7, Chloride Level 101, Carbon Dioxide Level 31, Anion Gap 6, Blood Urea Nitrogen 44H, Creatinine 4.5H, Estimat Glomerular Filtration Rate 9.5, Glucose Level 97, Calcium Level 9.0, Phosphorus Level 4.7, Magnesium Level 2.1, Total Bilirubin 0. 5, Aspartate Amino Transf (AST/SGOT) 25, Alanine Aminotransferase (ALT/SGPT) 7L, Alkaline Phosphatase 93, Total Protein 7.4, Albumin 2.6L, Globulin 4.8, Albumin/Globulin Ratio 0.5L 11/18/20 11:45: POC Whole Blood Glucose 123H Height (Feet): 5 Height (Inches): 1.00 Weight (Pounds): 92 General Appearance: no apparent distress, lethargic Cardiovascular: normal rate Respiratory/Chest: decreased breath sounds Abdomen: distended Objective No change Chris Puckett MD Nov 18, 2020 13:44
--- NOTE | 2020-11-18 14:30 | NUR ---
PT NOTE Attempted to see patient for PT treatment, patient not available for treatment at this time, will follow up in a.malena Blackburn RN notified.
[2020-11-18 16:00] VITALS: BP 125/65
--- NOTE | 2020-11-18 17:13 | NUR ---
CASE MANAGEMENT:REVIEW SI;COVID PNA~NOW NEGATIVE 11/11/20 MITRAL REGURGITATION. HTN. 98.3 84 20 141/66 94% 2L NC PLT 44 BUN 44 CR 4.5 IS;NORVASC PO QD HYDRALAZINE PO Q6 INSULIN LEVEMIR SQ Q24 PROTONIX PO Q12 MEGACE PO QD MED SURG STATUS DCP;FROM [facility] READMISSION TO SNF PENDING DP APPROVAL
--- NOTE | 2020-11-18 17:44 | Surgery Progress Note ---
Surgery Progress Note Subjective Symptoms: improved, pain absent, tolerating diet, passing flatus, BM Objective Last 24 Hour Vital Signs Date Time Temp Pulse Resp B/P (MAP) Pulse Ox O2 Delivery O2 Flow Rate FiO2 11/18/20 17:16 125/65 11/18/20 16:00 98.3 81 20 125/65 (85) 95 11/18/20 12:18 97.5 80 20 138/63 (88) 94 11/18/20 12:00 138/63 11/18/20 09:17 84 141/66 11/18/20 09:10 Nasal Cannula 2.0 11/18/20 08:25 98.1 84 20 141/66 (91) 94 11/18/20 06:27 142/82 11/18/20 04:00 97.1 85 20 145/84 (104) 97 11/18/20 00:00 97.2 80 20 141/78 (99) 97 11/18/20 00:00 141/78 11/17/20 21:00 Nasal Cannula 2.0 11/17/20 20:00 97.5 82 20 145/68 (93) 97 I&O Intake and Output 11/17/20 11/18/20 19:00 07:00 Intake Total 500 ml 460 ml Output Total 2000 ml Balance 500 ml -1540 ml Intake Oral 500 ml 460 ml Hemodialysis UF 2000 ml # Voids 1 2 Dressing: saturated Cardiovascular: RSR Respiratory: clear, decreased breath sounds Abdomen: soft, non-tender, present bowel sounds, non-distended Extremities: no tenderness, no cyanosis Laboratory Tests Test 11/17/20 21:03 11/18/20 06:04 11/18/20 08:10 11/18/20 11:45 POC Whole Blood Glucose 115 MG/DL (74-106) H 98 MG/DL (74-106) 123 MG/DL (74-106) H White Blood Count 5.5 K/UL (4.8-10.8) Red Blood Count 3.27 M/UL (4.20-5.40) L Hemoglobin 10.3 G/DL (12.0-16.0) L Hematocrit 31.3 % (37.0-47.0) L Mean Corpuscular Volume 96 FL (80-99) Mean Corpuscular Hemoglobin 31.5 PG (27.0-31.0) H Mean Corpuscular Hemoglobin Concent 32.9 G/DL (32.0-36.0) Red Cell Distribution Width 17.3 % (11.6-14.8) H Platelet Count 44 K/UL (150-450) L Mean Platelet Volume 10.2 FL (6.5-10.1) H Neutrophils (%) (Auto) % (45.0-75.0) Lymphocytes (%) (Auto) % (20.0-45.0) Monocytes (%) (Auto) % (1.0-10.0) Eosinophils (%) (Auto) % (0.0-3.0) Basophils (%) (Auto) % (0.0-2.0) Differential Total Cells Counted 100 Neutrophils % (Manual) 63 % (45-75) Lymphocytes % (Manual) 22 % (20-45) Monocytes % (Manual) 11 % (1-10) H Eosinophils % (Manual) 2 % (0-3) Basophils % (Manual) 2 % (0-2) Band Neutrophils 0 % (0-8) Platelet Estimate Decreased L Platelet Morphology Normal Anisocytosis 1+ Sodium Level 138 MMOL/L (136-145) Potassium Level 4.7 MMOL/L (3.5-5.1) Chloride Level 101 MMOL/L (98-107) Carbon Dioxide Level 31 MMOL/L (21-32) Anion Gap 6 mmol/L (5-15) Blood Urea Nitrogen 44 mg/dL (7-18) H Creatinine 4.5 MG/DL (0.55-1.30) H Estimat Glomerular Filtration Rate 9.5 mL/min (>60) Glucose Level 97 MG/DL (74-106) Calcium Level 9.0 MG/DL (8.5-10.1) Phosphorus Level 4.7 MG/DL (2.5-4.9) Magnesium Level 2.1 MG/DL (1.8-2.4) Total Bilirubin 0.5 MG/DL (0.2-1.0) Aspartate Amino Transf (AST/SGOT) 25 U/L (15-37) Alanine Aminotransferase (ALT/SGPT) 7 U/L (12-78) L Alkaline Phosphatase 93 U/L (46-116) Total Protein 7.4 G/DL (6.4-8.2) Albumin 2.6 G/DL (3.4-5.0) L Globulin 4.8 g/dL Albumin/Globulin Ratio 0.5 (1.0-2.7) L Plan Problems: (1) Decubitus skin ulcer Assessment & Plan: Pt presented on admission with multiple Pressure Injuries. DTPI Sacrum(L)8cm x (W)8cm. Base of wound is purpuric with surrounding non- Blanchable erythema. Darker skin tone without erythema or induration periwound. Pt complained at site of DTPI when minimally palpated. Non-Blanchable erythema without induration R Ischium(L)7cm x (W)7.5cm. L Heel is boggy with non-Blanchable erythema. R heel is Boggy with non-blanchable erythema. Tx.Plan: Apply Moisture Barrier Paste to Sacrum. Cover with Optifoam drsg. Change every 3 days and prn.. Apply Moisture Barrier Paste to R and L Ischial tuberosities. Cover each Ischium with Optifoam drsgs. Change every 3 days and prn. Apply Cavilon Skin Barrier to R and L Heels and each Malleoli. Cover each site with Optifoam drsgs. Change every 7 days and prn. Cover Bony prominences as needed with Optifoam drsgs. Reposition at least every 2 hours or as tolerated. Off-load heels with Pillow. (2) Dyspnea (3) Respiratory distress (4) Pneumonia due to COVID-19 virus Assessment & Plan: ++ on tx id and pulm input appreciated limited movement will need to be cautions to ensure not worsening decub (5) Hypoglycemia (6) End stage renal disease on dialysis (7) Transient hypotension (8) Diastolic CHF, chronic (9) C. difficile colitis (10) Diarrhea Assessment & Plan: DAILY ESTIMATED NEEDS: Needs based on ESRD on HD 42kg 30-40 kcals/kg [id number] total kcals 1.25-1.8 g protein/kg 53-76 g total protein Fluid per MD, on HD NUTRITION DIAGNOSIS: Increased kcal and pro needs r/t renal dysfunction, wound healing as evidenced by pt w/ ESRD on HD, admitted w/ wounds, including sacral DTPI. CURRENT DIET:Renal diet PO DIET RECOMMENDATIONS: Renal + CCHO MED diet/ texture per PRODUCTION TEAM ADVISOR ADDITIONAL RECOMMENDATIONS: 1) Daily wts, calibrated bed scale 2) Rec PRODUCTION TEAM ADVISOR eval for appropriate texture 3) Add NEPRO QD (425kcal/19g prot), monitor need for additional 4) Monitor for hypoglycemia (BG 68 this am) -> DC or LOWER LEVEMIR @ QHS- pt now w/ improved BG, hypoglycemic episodes 5) Wound healing: Nephrovite x 1, ZnSO4 220mg QD x 10 days Abdirahman BID as tolerated (11) ESRD (end stage renal disease) (12) Altered mental status (13) Pneumonia Kurt Flores Nov 18, 2020 17:44
--- NOTE | 2020-11-18 19:30 | NUR ---
NURSE HAND-OFF: Important Events on Shift:[none] Patient Status: [on going] Diet: [renal soft easy chew] Pending Orders: [HD steve] Pending Results/Labs:[none] Pending MD notification:[none] Latest Vital Signs: Temperature 98.3 , Pulse 81 , B/P 125 /65 , Respiratory Rate 20 , O2 SAT 95 , Nasal Cannula, O2 Flow Rate 2.0 . Vital Sign Comment: [stable] Latest Ness Fall Score: 50 Fall Risk: High Risk Safety Measures: Call light Within Reach, Bed Alarm Zone 1, Side Rails Side Rails x2, Bed position Low and Locked. Fall Precautions: Yellow Socks Yellow Gown Door Sign Patient Fall Education Report given to [ZENAIDA Johnson].
--- NOTE | 2020-11-18 19:35 | NUR ---
NURSE NOTES: The patient is awake and responsive with her care and doesn't seem to be in any acute distress at this time.She is presently on 2 liters of oxygen via NC well tolerated.She is on contact and droplet precaution due to Covid-19.The patient is on hemodialysis and has a Left Sub-clavian PermCath.She has a Right Wrist 22g saline locked that is patent and asymptomatic.The bed in low level, call light within easy reach, siderails up x2. Will continue to monitor as indicated
[2020-11-18 20:00] VITALS: BP 119/56
[2020-11-18] MEDS: Levemir Flexpen SUBQ SCH (20:00)
--- NOTE | 2020-11-18 21:01 | Cardiology Progress Note ---
Assessment/Plan Status: stable Status Narrative 1. COVID-19 viral PNA low grade fever, improved antiviral tx per ID 2. HFrEF, acute on chronic systolic on diastolic HF with EF 35-40% BNP severely elevated Fluid balance with HD Troponin negative Good O2 perfusion 3. ESRD on HD Aneuric Microfiltration for fluid balance 4. HTN - under better control 5. Mitral regurgitation - mod-severe contributing to severity of HF 6. possible ASD with L to R shunt 7. Sinus tachycardia 2/2 viral PNA and fever rate controlled, in SR 8. Anemia of chronic disease 9. Respiratory failure - O2 dependent Fluid balance with HD, still in fluid overload, BNP severely elevated. Tx for viral PNA per ID. In SR, rate and SBP controlled. Subjective ROS Limited/Unobtainable: Yes Cardiovascular: Reports: no symptoms Respiratory: Reports: shortness of breath Gastrointestinal/Abdominal: Reports: poor appetite Genitourinary: Reports: no symptoms Subjective SBP and HR in normal territory, good O2 perfusion on O2 NC Objective Last 24 Hour Vital Signs Date Time Temp Pulse Resp B/P (MAP) Pulse Ox O2 Delivery O2 Flow Rate FiO2 11/18/20 17:16 125/65 11/18/20 16:00 98.3 81 20 125/65 (85) 95 11/18/20 12:18 97.5 80 20 138/63 (88) 94 11/18/20 12:00 138/63 11/18/20 09:17 84 141/66 11/18/20 09:10 Nasal Cannula 2.0 11/18/20 08:25 98.1 84 20 141/66 (91) 94 11/18/20 06:27 142/82 11/18/20 04:00 97.1 85 20 145/84 (104) 97 11/18/20 00:00 97.2 80 20 141/78 (99) 97 11/18/20 00:00 141/78 11/17/20 21:00 Nasal Cannula 2.0 General Appearance: no apparent distress EENT: PERRL/EOMI Neck: supple, no JVD Rhythm: NSR Cardiovascular: regular rhythm Respiratory/Chest: no respiratory distress Intake and Output 11/17/20 11/18/20 19:00 07:00 Intake Total 500 ml 460 ml Output Total 2000 ml Balance 500 ml -1540 ml Intake Oral 500 ml 460 ml Hemodialysis UF 2000 ml # Voids 1 2 Laboratory Tests Test 11/17/20 21:03 11/18/20 06:04 11/18/20 08:10 11/18/20 11:45 POC Whole Blood Glucose 115 MG/DL (74-106) H 98 MG/DL (74-106) 123 MG/DL (74-106) H White Blood Count 5.5 K/UL (4.8-10.8) Red Blood Count 3.27 M/UL (4.20-5.40) L Hemoglobin 10.3 G/DL (12.0-16.0) L Hematocrit 31.3 % (37.0-47.0) L Mean Corpuscular Volume 96 FL (80-99) Mean Corpuscular Hemoglobin 31.5 PG (27.0-31.0) H Mean Corpuscular Hemoglobin Concent 32.9 G/DL (32.0-36.0) Red Cell Distribution Width 17.3 % (11.6-14.8) H Platelet Count 44 K/UL (150-450) L Mean Platelet Volume 10.2 FL (6.5-10.1) H Neutrophils (%) (Auto) % (45.0-75.0) Lymphocytes (%) (Auto) % (20.0-45.0) Monocytes (%) (Auto) % (1.0-10.0) Eosinophils (%) (Auto) % (0.0-3.0) Basophils (%) (Auto) % (0.0-2.0) Differential Total Cells Counted 100 Neutrophils % (Manual) 63 % (45-75) Lymphocytes % (Manual) 22 % (20-45) Monocytes % (Manual) 11 % (1-10) H Eosinophils % (Manual) 2 % (0-3) Basophils % (Manual) 2 % (0-2) Band Neutrophils 0 % (0-8) Platelet Estimate Decreased L Platelet Morphology Normal Anisocytosis 1+ Sodium Level 138 MMOL/L (136-145) Potassium Level 4.7 MMOL/L (3.5-5.1) Chloride Level 101 MMOL/L (98-107) Carbon Dioxide Level 31 MMOL/L (21-32) Anion Gap 6 mmol/L (5-15) Blood Urea Nitrogen 44 mg/dL (7-18) H Creatinine 4.5 MG/DL (0.55-1.30) H Estimat Glomerular Filtration Rate 9.5 mL/min (>60) Glucose Level 97 MG/DL (74-106) Calcium Level 9.0 MG/DL (8.5-10.1) Phosphorus Level 4.7 MG/DL (2.5-4.9) Magnesium Level 2.1 MG/DL (1.8-2.4) Total Bilirubin 0.5 MG/DL (0.2-1.0) Aspartate Amino Transf (AST/SGOT) 25 U/L (15-37) Alanine Aminotransferase (ALT/SGPT) 7 U/L (12-78) L Alkaline Phosphatase 93 U/L (46-116) Total Protein 7.4 G/DL (6.4-8.2) Albumin 2.6 G/DL (3.4-5.0) L Globulin 4.8 g/dL Albumin/Globulin Ratio 0.5 (1.0-2.7) L Pamela Chowdhury PA-C Nov 18, 2020 21:01
[2020-11-19] VITALS (8 sets, daily range): BP systolic 121–155; BP diastolic 58–78
[2020-11-19] MEDS: HydrALAZINE 25mg tab ORAL SCH ×4 (01:07→17:09)
[2020-11-19] MEDS: NovoLOG Insulin Flexpen SUBQ SCH ×4 (05:46→20:19)
--- NOTE | 2020-11-19 06:27 | Hematology/Onc Progress Note ---
Assessment/Plan Assessment/Plan # Anemia of chronic disease due to underlying chronic medical issues, multifactorial v Gi bleed --> Anemia workup has been ordered, rule out gi bleed --> No evidence of hemolysis is noted, peripheral smear has been reviewed. --> Hgb goal >7. Transfuse prn --> Epogen or iron at this time is not particularly indicated --> Medications have been reviewed --> low threshold for gi evaluation in case has occult + --> hgb 11-->9.6-->10.4->9.8 # Thrombocytopenia due to Covid pna++++++++ --> cont isolation -> completed steriods --> per pulm recs --> plt 160-->98-->147-->44 --> supportive care --> hep and hiv are neg # chf diastolic acute -> cards aware # Esrd on hd --> per renal # failure of thrive # dementia # dm poory controlled due to steroids # Dvt ppx scds Appreciate consultation and dw PCP Subjective HEENT: Denies: no symptoms, eye pain, blurred vision, tearing, double vision, ear pain, ear discharge, nose pain, nose congestion, throat pain, throat swelling, mouth pain, mouth swelling, other Cardiovascular: Denies: no symptoms, chest pain, edema, irregular heart rate, lightheadedness, palpitations, syncope, other Respiratory: Denies: no symptoms, cough, shortness of breath, SOB with excertion, SOB at rest, sputum, wheezing, other Gastrointestinal/Abdominal: Denies: no symptoms, abdomen distended, abdominal pain, black stools, tarry stools, blood in stool, constipated, diarrhea, difficulty swallowing, nausea, poor appetite, poor fluid intake, rectal bleeding, vomiting, other Genitourinary: Denies: no symptoms, burning, discharge, frequency, flank pain, hematuria, incontinence, pain, urgency, other Neurologic/Psychiatric: Denies: no symptoms, anxiety, depressed, emotional problems, headache, numbness, paresthesia, pre-existing deficit, seizure, tingling, tremors, weakness, other Endocrine: Denies: no symptoms, excessive sweating, flushing, intolerance to cold, intolerance to heat, increased hunger, increased thirst, increased urine, unexplained weight gain, unexplained weight loss, other Hematologic/Lymphatic: Denies: no symptoms, anemia, easy bleeding, easy bruising, adenopathy, other Allergies: Coded Allergies: No Known Allergies (Unverified , 09/23/20) Subjective 11/04 labs are noted, no bleeding, meds reviewed, on steriods, seen by pulm 11/05 hd done yesterday, no bleeding, cbc is pending 11/06 awake, alert, labs are pending, reviewed communication consultant recs 11/07 meds reviewed, labs noted, no bleeding 11/08 labs are noted, no bleeding, meds are reviewed 11/10 meds noted, no bleeding, no f/c, no bleeding 11/11 hgb 10.1 yest, pending for today cbc/bmp 11/12 is on nc, no bleeding, plt lower ordered hep, hiv us abd 11/13 is on 2lnc, no bleeding, meds reviewed, labs noted 11/14 on 2l, labs pending, no bleeding, meds reviewed 11/15 no events, on 2l nc, meds noted 11/17 no events, nobleeding, asymptomatic, no night sweats noted 11/18 labs noted, meds reviewed, no major events, no bleeding 11/19 did get hd last night, no bleeding, plt drop 44, hold off anticoag Objective Objective Current Medications Medications (Trade) Dose Ordered Sig/Yeimi Route PRN Reason Start Time Stop Time Status Last Admin Dose Admin Acetaminophen (Tylenol) 650 mg Q4H PRN ORAL Temp >100.5 10/27/20 14:15 11/26/20 14:14 11/05/20 17:22 Amlodipine Besylate (Norvasc) 5 mg DAILY ORAL 11/08/20 09:00 12/08/20 08:59 11/18/20 09:17 Citalopram Hydrobromide (CeleXA) 20 mg DAILY ORAL 10/29/20 09:00 11/28/20 08:59 11/18/20 09:17 Dextrose (Dextrose 50%) 25 ml Q30M PRN IV Hypoglycemia 10/28/20 20:45 01/26/21 20:44 Dextrose (Dextrose 50%) 50 ml Q30M PRN IV Hypoglycemia 10/28/20 20:45 01/26/21 20:44 Docusate Sodium (Colace) 100 mg TWICE A DAY ORAL 10/28/20 18:00 11/27/20 17:59 11/18/20 17:16 Haloperidol Lactate (Haldol) 5 mg Q6H PRN IM Agitation 10/28/20 15:45 12/12/20 15:44 Hydralazine HCl (Apresoline) 25 mg Q4H PRN ORAL For BP over 160 systolic 11/06/20 16:15 02/04/21 16:14 Hydralazine HCl (Apresoline) 25 mg Q6HR ORAL 11/07/20 18:00 02/05/21 17:59 11/19/20 06:24 Insulin Aspart (NovoLOG) BEFORE MEALS AND HS SUBQ 10/28/20 21:00 01/26/21 20:59 11/16/20 16:29 Insulin Detemir (Levemir) 10 units Q24H SUBQ 10/29/20 20:00 01/27/21 19:59 11/18/20 20:00 Megestrol Acetate (Megace) 400 mg DAILY ORAL 10/28/20 09:00 01/26/21 08:59 11/18/20 09:17 Pantoprazole (Protonix) 40 mg EVERY 12 HOURS ORAL 10/28/20 21:00 11/27/20 20:59 11/18/20 20:17 Sevelamer Carbonate (Renvela) 800 mg THREE TIMES A DAY ORAL 10/28/20 13:00 01/26/21 12:59 11/18/20 17:15 Last 24 Hour Vital Signs Date Time Temp Pulse Resp B/P (MAP) Pulse Ox O2 Delivery O2 Flow Rate FiO2 11/19/20 06:24 153/68 11/19/20 04:00 98.1 84 20 153/68 (96) 100 11/19/20 01:07 139/61 11/19/20 00:00 97.9 81 20 139/61 (87) 99 11/18/20 21:00 Nasal Cannula 2.0 11/18/20 20:00 98.4 79 20 119/56 (77) 98 11/18/20 17:16 125/65 11/18/20 16:00 98.3 81 20 125/65 (85) 95 11/18/20 12:18 97.5 80 20 138/63 (88) 94 11/18/20 12:00 138/63 12/28/20 09:17 84 141/66 11/18/20 09:10 Nasal Cannula 2.0 11/18/20 08:25 98.1 84 20 141/66 (91) 94 11/18/20 06:27 142/82 11/18/20 04:00 97.1 85 20 145/84 (104) 97 11/18/20 00:00 97.2 80 20 141/78 (99) 97 11/18/20 00:00 141/78 11/17/20 21:00 Nasal Cannula 2.0 11/17/20 20:00 97.5 82 20 145/68 (93) 97 11/17/20 17:14 142/72 11/17/20 16:00 97.7 82 20 142/72 (95) 97 11/17/20 12:00 138/66 11/17/20 12:00 97.7 81 20 138/66 (90) 95 11/17/20 09:00 Nasal Cannula 2.0 11/17/20 08:51 81 144/63 11/17/20 08:00 96.8 81 19 144/63 (90) 100 Intake and Output 11/18/20 11/19/20 19:00 07:00 Intake Total 480 ml Balance 480 ml Intake Oral 480 ml Labs Test 11/16/20 07:15 11/16/20 07:57 11/16/20 11:35 11/16/20 16:23 White Blood Count 6.4 K/UL (4.8-10.8) Red Blood Count 3.13 M/UL (4.20-5.40) Hemoglobin 9.8 G/DL (12.0-16.0) Hematocrit 30.0 % (37.0-47.0) Mean Corpuscular Volume 96 FL (80-99) Mean Corpuscular Hemoglobin 31.4 PG (27.0-31.0) Mean Corpuscular Hemoglobin Concent 32.7 G/DL (32.0-36.0) Red Cell Distribution Width 17.7 % (11.6-14.8) Platelet Count 147 K/UL (150-450) Mean Platelet Volume 8.8 FL (6.5-10.1) Neutrophils (%) (Auto) 65.0 % (45.0-75.0) Lymphocytes (%) (Auto) 20.1 % (20.0-45.0) Monocytes (%) (Auto) 12.3 % (1.0-10.0) Eosinophils (%) (Auto) 1.1 % (0.0-3.0) Basophils (%) (Auto) 1.5 % (0.0-2.0) Sodium Level 137 MMOL/L (136-145) Potassium Level 4.8 MMOL/L (3.5-5.1) Chloride Level 100 MMOL/L (98-107) Carbon Dioxide Level 30 MMOL/L (21-32) Anion Gap 7 mmol/L (5-15) Blood Urea Nitrogen 70 mg/dL (7-18) Creatinine 6.0 MG/DL (0.55-1.30) Estimat Glomerular Filtration Rate 6.8 mL/min (>60) Glucose Level 70 MG/DL (74-106) Calcium Level 9.1 MG/DL (8.5-10.1) Phosphorus Level 5.3 MG/DL (2.5-4.9) Magnesium Level 2.1 MG/DL (1.8-2.4) Total Bilirubin 0.4 MG/DL (0.2-1.0) Aspartate Amino Transf (AST/SGOT) 15 U/L (15-37) Alanine Aminotransferase (ALT/SGPT) 10 U/L (12-78) Alkaline Phosphatase 86 U/L (46-116) Total Protein 7.5 G/DL (6.4-8.2) Albumin 2.8 G/DL (3.4-5.0) Globulin 4.7 g/dL Albumin/Globulin Ratio 0.6 (1.0-2.7) POC Whole Blood Glucose 89 MG/DL (74-106) 146 MG/DL (74-106) Test 11/16/20 20:58 11/17/20 05:41 11/17/20 12:39 11/17/20 16:00 POC Whole Blood Glucose 117 MG/DL (74-106) 137 MG/DL (74-106) Test 11/17/20 21:03 11/18/20 06:04 11/18/20 08:10 11/18/20 11:45 POC Whole Blood Glucose 115 MG/DL (74-106) 98 MG/DL (74-106) 123 MG/DL (74-106) White Blood Count 5.5 K/UL (4.8-10.8) Red Blood Count 3.27 M/UL (4.20-5.40) Hemoglobin 10.3 G/DL (12.0-16.0) Hematocrit 31.3 % (37.0-47.0) Mean Corpuscular Volume 96 FL (80-99) Mean Corpuscular Hemoglobin 31.5 PG (27.0-31.0) Mean Corpuscular Hemoglobin Concent 32.9 G/DL (32.0-36.0) Red Cell Distribution Width 17.3 % (11.6-14.8) Platelet Count 44 K/UL (150-450) Mean Platelet Volume 10.2 FL (6.5-10.1) Neutrophils (%) (Auto) % (45.0-75.0) Lymphocytes (%) (Auto) % (20.0-45.0) Monocytes (%) (Auto) % (1.0-10.0) Eosinophils (%) (Auto) % (0.0-3.0) Basophils (%) (Auto) % (0.0-2.0) Differential Total Cells Counted 100 Neutrophils % (Manual) 63 % (45-75) Lymphocytes % (Manual) 22 % (20-45) Monocytes % (Manual) 11 % (1-10) Eosinophils % (Manual) 2 % (0-3) Basophils % (Manual) 2 % (0-2) Band Neutrophils 0 % (0-8) Platelet Estimate Decreased Platelet Morphology Normal Anisocytosis 1+ Sodium Level 138 MMOL/L (136-145) Potassium Level 4.7 MMOL/L (3.5-5.1) Chloride Level 101 MMOL/L (98-107) Carbon Dioxide Level 31 MMOL/L (21-32) Anion Gap 6 mmol/L (5-15) Blood Urea Nitrogen 44 mg/dL (7-18) Creatinine 4.5 MG/DL (0.55-1.30) Estimat Glomerular Filtration Rate 9.5 mL/min (>60) Glucose Level 97 MG/DL (74-106) Calcium Level 9.0 MG/DL (8.5-10.1) Phosphorus Level 4.7 MG/DL (2.5-4.9) Magnesium Level 2.1 MG/DL (1.8-2.4) Total Bilirubin 0.5 MG/DL (0.2-1.0) Aspartate Amino Transf (AST/SGOT) 25 U/L (15-37) Alanine Aminotransferase (ALT/SGPT) 7 U/L (12-78) Alkaline Phosphatase 93 U/L (46-116) Total Protein 7.4 G/DL (6.4-8.2) Albumin 2.6 G/DL (3.4-5.0) Globulin 4.8 g/dL Albumin/Globulin Ratio 0.5 (1.0-2.7) Test 11/18/20 16:17 11/18/20 20:28 11/19/20 05:10 11/19/20 05:45 POC Whole Blood Glucose 144 MG/DL (74-106) 168 MG/DL (74-106) 99 MG/DL (74-106) Height (Feet): 5 Height (Inches): 1.00 Weight (Pounds): 92 Objective Gen: nad Pulm: ctab CV: rrr Abd: soft, nt, nd ext: no cce Timothy Lam MD Nov 19, 2020 06:27
[2020-11-19 06:36] LABS: CALCIUM 9.1 MG/DL (8.5-10.1); CREATININE 6.5 MG/DL (0.55-1.30); POTASSIUM 4.9 MMOL/L (3.5-5.1)
[2020-11-19 06:40] LABS: BASOPHILS % (AUTO) 1.2 % (0.0-2.0); EOSINOPHILS % (AUTO) 2.4 % (0.0-3.0); HEMATOCRIT 29.5 % (37.0-47.0); HEMOGLOBIN 9.5 G/DL (12.0-16.0); LYMPHOCYTES % (AUTO) 24.4 % (20.0-45.0); MEAN CORPUSCULAR VOLUME 98 FL (80-99); MONOCYTES % (AUTO) 14.4 % (1.0-10.0); NEUTROPHILS % (AUTO) 57.5 % (45.0-75.0); PLATELET COUNT 150 K/UL (150-450); RED BLOOD COUNT 3.02 M/UL (4.20-5.40); RED CELL DISTRIBUTION WIDTH 17.7 % (11.6-14.8); WHITE BLOOD COUNT 6.5 K/UL (4.8-10.8)
--- NOTE | 2020-11-19 07:20 | NUR ---
NURSE NOTES: Received patient in bed, patient is awake ,alert, bermudian speaking , no sign of distress, on 2 liters of oxygen via NC ,scheduled for hemodialysis today, patient with Left Sub-clavian Perma cath for HD, HL patent and asymptomatic.The bed in low level, call light within easy reach, siderails up x2. Will continue to monitor as indicated ZENAIDA MALIK
--- NOTE | 2020-11-19 07:28 | NUR ---
NURSE HAND-OFF: Important Events on Shift:Slept about 8hrs last night Patient Status: Diet: Pending Orders: Pending Results/Labs: Pending MD notification: Latest Vital Signs: Temperature 98.1 , Pulse 84 , B/P 153 /68 , Respiratory Rate 20 , O2 SAT 100 , Nasal Cannula, O2 Flow Rate 2.0 . Vital Sign Comment: Latest Ness Fall Score: 50 Fall Risk: High Risk Safety Measures: Call light Within Reach, Bed Alarm Zone 1, Side Rails Side Rails x2, Bed position Low and Locked. Fall Precautions: Yellow Socks Yellow Gown Door Sign Patient Fall Education Report given to .
--- NOTE | 2020-11-19 08:57 | Pulmonology Progress Note ---
Subjective ROS Limited/Unobtainable: Yes Interval Events: None new reported Constitutional: Denies: fever, chills HEENT: Repors: no symptoms Respiratory: Reports: no symptoms Cardiovascular: Reports: no symptoms Gastrointestinal/Abdominal: Denies: nausea, vomiting, diarrhea Musculoskeletal: Denies: pain Allergies: Coded Allergies: No Known Allergies (Unverified , 09/23/20) Objective Last 24 Hour Vital Signs Date Time Temp Pulse Resp B/P (MAP) Pulse Ox O2 Delivery O2 Flow Rate FiO2 11/19/20 06:24 153/68 11/19/20 04:00 98.1 84 20 153/68 (96) 100 11/19/20 01:07 139/61 11/19/20 00:00 97.9 81 20 139/61 (87) 99 11/18/20 21:00 Nasal Cannula 2.0 11/18/20 20:00 98.4 79 20 119/56 (77) 98 11/18/20 17:16 125/65 11/18/20 16:00 98.3 81 20 125/65 (85) 95 11/18/20 12:18 97.5 80 20 138/63 (88) 94 11/18/20 12:00 138/63 11/18/20 09:17 84 141/66 11/18/20 09:10 Nasal Cannula 2.0 Intake and Output 11/18/20 11/19/20 19:00 07:00 Intake Total 480 ml 130 ml Balance 480 ml 130 ml Intake Oral 480 ml 130 ml # Voids 2 Objective 11/19 due for dialysis today; saturating well on 2L NC 11/18 s/p dialysis yesterday, 2L removed; saturating well on 2L NC 11/15 now on room air saturating 95-96% 11/13 s/p dialysis, 2L removed; saturating well on 2L NC 11/12 due for dialysis and abd US today, NPO 11/11 no change 11/10 s/p dialysis; 1.6L removed; saturating well on 2 lpm NC 11/09 due for dialysis today; continues to saturate well on 2 lpm NC 11/08 s/p dialysis; saturating well on 2 lpm NC 11/07/2020 s/p dialysis 11/06/2020 pt being seen by PT; saturating well on 2 lpm NC; due for dialysis today 11/05/2020 pt asleep; s/p dialysis; saturating well on 2 lpm NC 11/04/2020 pt asleep; saturating well on 2 lpm NC; NAD 11/03/2020 saturating well on 2 lpm NC; eating in bed; NAD 11/02/2020 saturating well on 1 lpm NC; s/p dialysis 11/01/2020 saturating well on 1 lpm NC 10/31/2020 patient alert; saturating well on 1 lpm NC 10/30/2020 pt asleep; saturating well on low flow oxygen 10/29/2020 pt asleep in bed; saturating well on low flow oxygen General Appearance: other - thin HEENT: normocephalic, atraumatic Respiratory: chest wall non-tender, rhonchi - bilaterally, other - dialysis catheter Cardiovascular: normal rate, regular rhythm Abdomen: soft, non tender Laboratory Tests 11/18/20 11:45: POC Whole Blood Glucose 123H 11/18/20 16:17: POC Whole Blood Glucose 144H 11/18/20 20:28: POC Whole Blood Glucose 168H 11/19/20 05:10: White Blood Count 6.5, Red Blood Count 3.02L, Hemoglobin 9.5L, Hematocrit 29.5L, Mean Corpuscular Volume 98, Mean Corpuscular Hemoglobin 31.4H, Mean Corpuscular Hemoglobin Concent 32.0, Red Cell Distribution Width 17.7H, Platelet Count 150#, Mean Platelet Volume 7.7, Neutrophils (%) (Auto) 57.5, Lymphocytes (%) (Auto) 24.4, Monocytes (%) (Auto) 14.4H, Eosinophils (%) (Auto) 2.4, Basophils (%) (Auto) 1.2, Sodium Level 137, Potassium Level 4.9, Chloride Level 99, Carbon Dioxide Level 32, Anion Gap 6, Blood Urea Nitrogen 65H, Creatinine 6.5H, Estimat Glomerular Filtration Rate 6.2, Glucose Level 103, Calcium Level 9.1 11/19/20 05:45: POC Whole Blood Glucose 99 Current Medications Medications (Trade) Dose Ordered Sig/Yeimi Route PRN Reason Start Time Stop Time Status Last Admin Dose Admin Acetaminophen (Tylenol) 650 mg Q4H PRN ORAL Temp >100.5 10/27/20 14:15 11/26/20 14:14 12/15/20 17:22 Amlodipine Besylate (Norvasc) 5 mg DAILY ORAL 11/08/20 09:00 12/08/20 08:59 11/18/20 09:17 Citalopram Hydrobromide (CeleXA) 20 mg DAILY ORAL 10/29/20 09:00 11/28/20 08:59 11/18/20 09:17 Dextrose (Dextrose 50%) 25 ml Q30M PRN IV Hypoglycemia 10/28/20 20:45 01/26/21 20:44 Dextrose (Dextrose 50%) 50 ml Q30M PRN IV Hypoglycemia 10/28/20 20:45 01/26/21 20:44 Docusate Sodium (Colace) 100 mg TWICE A DAY ORAL 10/28/20 18:00 11/27/20 17:59 11/18/20 17:16 Haloperidol Lactate (Haldol) 5 mg Q6H PRN IM Agitation 10/28/20 15:45 12/12/20 15:44 Hydralazine HCl (Apresoline) 25 mg Q4H PRN ORAL For BP over 160 systolic 11/06/20 16:15 02/04/21 16:14 Hydralazine HCl (Apresoline) 25 mg Q6HR ORAL 11/07/20 18:00 02/05/21 17:59 11/19/20 06:24 Insulin Aspart (NovoLOG) BEFORE MEALS AND HS SUBQ 10/28/20 21:00 01/26/21 20:59 11/16/20 16:29 Insulin Detemir (Levemir) 10 units Q24H SUBQ 10/29/20 20:00 01/27/21 19:59 11/18/20 20:00 Megestrol Acetate (Megace) 400 mg DAILY ORAL 10/28/20 09:00 01/26/21 08:59 11/18/20 09:17 Pantoprazole (Protonix) 40 mg EVERY 12 HOURS ORAL 10/28/20 21:00 11/27/20 20:59 11/18/20 20:17 Sevelamer Carbonate (Renvela) 800 mg THREE TIMES A DAY ORAL 10/28/20 13:00 01/26/21 12:59 11/18/20 17:15 Assessment/Plan Assessment/Plan 1. COVID-19 pneumonia. - CXR 10/27/2020 showed multifocal infiltrate. - abd US 11/12/2020 showed large left, and small right pleural effusion - s/p decadron - s/p ceftriaxone and azithromycin. - Repeat COVID-19 test 10/29/2020 positive - Repeat COVID-19 PCR 11/11 negative - now off respiratory isolation - currently on 2L NC saturating well; cont monitor SaO2, keep it above 92%; wean down oxygen 2. Renal failure, on dialysis. - per renal 3. Congestive heart failure. - BNP >35,000 - 2D echo EF 35-40% - management per cardio 4. Right eye conjunctivitis. - improved 5. DVT ppx - D-dimer 3.08, CRP 16.1 -> 4.0 - 10/29/2020 venous ultrasound unremarkable - On SCD 6. hyperkalemia - per renal 7. Thrombocytopenia; now resolved - Hep and HIV neg Abdominal tenderness - US of abd 11/12 Coarsened liver echogenicity, nonspecific but could in dicate hepatocellular disease - LFTs wnl dc planning to [facility] noted The care of this patient was discussed with my supervising physician Time spent for this encounter was approximately 31 minutes Zbigniew Serrano Nov 19, 2020 08:57
[2020-11-19] MEDS: Megace 400mg/10ml Susp ORAL SCH (09:02)
[2020-11-19] MEDS: Docusate 100mg cap ORAL SCH ×2 (09:02→17:08)
[2020-11-19] MEDS: Citalopram Hydrobromide 10mg Tab ORAL SCH (09:03)
--- NOTE | 2020-11-19 09:43 | NUR ---
RD ASSESSMENT & RECOMMENDATIONS SEE CARE ACTIVITY FOR COMPLETE ASSESSMENT DAILY ESTIMATED NEEDS: Needs based on ESRD on HD 42kg 30-40 kcals/kg 8320-5982 total kcals 1.25-1.8 g protein/kg 53-76 g total protein Fluid per MD, on HD NUTRITION DIAGNOSIS: Increased kcal and pro needs r/t renal dysfunction, wound healing as evidenced by pt w/ ESRD on HD, admitted w/ wounds, including sacral DTPI. CURRENT DIET:Renal diet PO DIET RECOMMENDATIONS: Renal + CCHO MED diet/ texture per [employer] ADDITIONAL RECOMMENDATIONS: 1) Daily wts, calibrated bed scale 2) Rec [employer] eval for appropriate texture 3) Add NEPRO BID (425kcal/19g prot), monitor need for additional 4) Monitor for hypoglycemia -> DC or LOWER LEVEMIR @ [facility]- pt now w/ improved BG, hypoglycemic episodes 5) Wound healing: Nephrovite x 1, ZnSO4 220mg QD x 10 days Abdirahman BID as tolerated
--- NOTE | 2020-11-19 10:50 | Cardiology Progress Note ---
Assessment/Plan Status Narrative 1. COVID-19 viral PNA low grade fever, improved antiviral tx per ID 2. HFrEF, acute on chronic systolic on diastolic HF with EF 35-40% BNP severely elevated Fluid balance with HD Troponin negative Good O2 perfusion 3. ESRD on HD Aneuric Microfiltration for fluid balance 4. HTN - under better control 5. Mitral regurgitation - mod-severe contributing to severity of HF 6. possible ASD with L to R shunt 7. Sinus tachycardia 2/2 viral PNA and fever rate controlled, in SR 8. Anemia of chronic disease 9. Respiratory failure - O2 dependent Fluid balance with HD, still in fluid overload, BNP severely elevated. Tx for viral PNA per ID. In SR, rate and SBP controlled. Subjective ROS Limited/Unobtainable: Yes Cardiovascular: Reports: edema Respiratory: Reports: shortness of breath Gastrointestinal/Abdominal: Reports: poor appetite Genitourinary: Reports: no symptoms Subjective SBP and HR in normal territory, good O2 perfusion on O2 NC Objective Last 24 Hour Vital Signs Date Time Temp Pulse Resp B/P (MAP) Pulse Ox O2 Delivery O2 Flow Rate FiO2 11/19/20 09:00 Nasal Cannula 1.0 11/19/20 09:00 87 155/71 11/19/20 08:00 98.1 87 20 155/71 (99) 98 11/19/20 06:24 153/68 11/19/20 04:00 98.1 84 20 153/68 (96) 100 11/19/20 01:07 139/61 11/19/20 00:00 97.9 81 20 139/61 (87) 99 11/18/20 21:00 Nasal Cannula 2.0 11/18/20 20:00 98.4 79 20 119/56 (77) 98 11/18/20 17:16 125/65 11/18/20 16:00 98.3 81 20 125/65 (85) 95 11/18/20 12:18 97.5 80 20 138/63 (88) 94 11/18/20 12:00 138/63 General Appearance: no apparent distress EENT: PERRL/EOMI Neck: no JVD Cardiovascular: normal rate Intake and Output 11/18/20 11/19/20 19:00 07:00 Intake Total 480 ml 130 ml Balance 480 ml 130 ml Intake Oral 480 ml 130 ml # Voids 2 Laboratory Tests Test 11/18/20 11:45 12/28/20 16:17 11/18/20 20:28 11/19/20 05:10 POC Whole Blood Glucose 123 MG/DL (74-106) H 144 MG/DL (74-106) H 168 MG/DL (74-106) H White Blood Count 6.5 K/UL (4.8-10.8) Red Blood Count 3.02 M/UL (4.20-5.40) L Hemoglobin 9.5 G/DL (12.0-16.0) L Hematocrit 29.5 % (37.0-47.0) L Mean Corpuscular Volume 98 FL (80-99) Mean Corpuscular Hemoglobin 31.4 PG (27.0-31.0) H Mean Corpuscular Hemoglobin Concent 32.0 G/DL (32.0-36.0) Red Cell Distribution Width 17.7 % (11.6-14.8) H Platelet Count 150 K/UL (150-450) # Mean Platelet Volume 7.7 FL (6.5-10.1) Neutrophils (%) (Auto) 57.5 % (45.0-75.0) Lymphocytes (%) (Auto) 24.4 % (20.0-45.0) Monocytes (%) (Auto) 14.4 % (1.0-10.0) H Eosinophils (%) (Auto) 2.4 % (0.0-3.0) Basophils (%) (Auto) 1.2 % (0.0-2.0) Sodium Level 137 MMOL/L (136-145) Potassium Level 4.9 MMOL/L (3.5-5.1) Chloride Level 99 MMOL/L (98-107) Carbon Dioxide Level 32 MMOL/L (21-32) Anion Gap 6 mmol/L (5-15) Blood Urea Nitrogen 65 mg/dL (7-18) H Creatinine 6.5 MG/DL (0.55-1.30) H Estimat Glomerular Filtration Rate 6.2 mL/min (>60) Glucose Level 103 MG/DL (74-106) Calcium Level 9.1 MG/DL (8.5-10.1) Test 11/19/20 05:45 POC Whole Blood Glucose 99 MG/DL (74-106) Pamela Chowdhury PA-C Nov 19, 2020 10:49
--- NOTE | 2020-11-19 11:24 | Nephrology Progress Note ---
Assessment/Plan Problem List: (1) End stage renal disease on dialysis (2) C. difficile colitis (3) Transient hypotension (4) Diastolic CHF, chronic Assessment 75-year-old female presents with respiratory distress and COVID-19 infection Patient has end-stage renal disease and last dialyzed 4 days ago Patient presents with high potassium History of C. difficile colitis History of diabetes mellitus History of hypertension, presents with transient hypotension History of cardiomyopathy and diastolic CHF Plan November 19: Last dialysis November 17. Due for dialysis today. Labs reviewed. Medication list reviewed. Continue per consultants. November 18: Patient was dialyzed yesterday. Due for dialysis tomorrow. Labs reviewed. Stable from renal standpoint of view. November 17: Due for dialysis today. Continue her current management. No labs drawn today. November 16: Last dialysis November 14. Will order dialysis for tomorrow. Medi cation list reviewed. Continue per consultants. November 15: Dialyzed yesterday. 2 L removed. No labs drawn today. We will c eva to monitor her renal parameters and dialysis as needed. November 14: Last dialysis November 12. Due for dialysis today. Labs reviewed. Medication list reviewed. Stable from renal standpoint of view. November 13: Dialyzed yesterday. Labs reviewed. Stable from renal standpoint of view. Next hemodialysis tomorrow. November 12: Due for dialysis today. No chemistry panel done today. Blood pressure stable. Continue per current management. November 11: Last dialysis November 09. No labs drawn today yet. We will order dialysis tomorrow. November 10: Patient was dialyzed yesterday. Potassium now within normal limit. Blood pressure stable. Continue same. November 09: Due for dialysis today. Labs reviewed. Potassium 5.6 which will be corrected after dialysis. Will check repeat lab tomorrow. November 08: Dialyzed yesterday. Labs reviewed. Continue per consultants. Due for dialysis tomorrow. November 07: Due for dialysis today. Blood pressure medication adjusted. Will check lab tomorrow. November 06: Labs reviewed. Medication list reviewed. Will order dialysis for tomorrow. Continue per consultants. Hydralazine 25 mg as needed for high blood pressure ordered. November 05: Discussed with dialysis nurse. Patient was dialyzed late last nigh t. However today's lab results suggestive of high BUN and creatinine. Serum potassium elevated but the repeat is normal. Will hold the Kayexalate. Will attempt another dialysis and order post BUN and creatinine. Reevaluation on November 05 at 3 PM: Stat BMP done as it appears this morning's lab was prior to dialysis even though it was marked 6 AM. The stat dialysis orders will be canceled based on new lab results. Will arrange for next dialysis on November 07 unless she needs it earlier. November 04: Patient due for dialysis today. Blood pressure stable. No UF is scheduled during dialysis. Check labs tomorrow. No can panel drawn today. November 03: Patient was dialyzed yesterday. Labs reviewed. Blood pressure more stable. Due for dialysis tomorrow. No ultrafiltration is ordered. November 02: Dialyzed today. Blood pressure 95 systolic. Parameters for BP medications. Patient asymptomatic. Albumin 25% 100 cc 1 bolus dose ordered. Continue rest. Discussed with RN. November 01: Dialyzed yesterday. Labs reviewed. Medication list reviewed. Blood pressure medication adjusted. Hemodialysis tomorrow. October 31: Due for dialysis today. No labs drawn today. Continue per consultants. Will check can panel tomorrow. Medication list reviewed. Blood pressure stable. October 30: Last dialyzed October 29. Due for dialysis October 31. Continue per consultants. October 29: Patient dialyzed last evening of October 27. Serum creatinine and electrolyte much improved Continue per current treatment plan Per orders Next dialysis today October 29 Check labs in a.m. Subjective ROS Limited/Unobtainable: No Constitutional: Reports: malaise, weakness Objective Objective Last 24 Hour Vital Signs Date Time Temp Pulse Resp B/P (MAP) Pulse Ox O2 Delivery O2 Flow Rate FiO2 11/19/20 09:00 Nasal Cannula 1.0 11/19/20 09:00 87 155/71 11/19/20 08:00 98.1 87 20 155/71 (99) 98 11/19/20 06:24 153/68 11/19/20 04:00 98.1 84 20 153/68 (96) 100 11/19/20 01:07 139/61 11/19/20 00:00 97.9 81 20 139/61 (87) 99 11/18/20 21:00 Nasal Cannula 2.0 11/18/20 20:00 98.4 79 20 119/56 (77) 98 11/18/20 17:16 125/65 11/18/20 16:00 98.3 81 20 125/65 (85) 95 11/18/20 12:18 97.5 80 20 138/63 (88) 94 11/18/20 12:00 138/63 Intake and Output 11/18/20 11/19/20 18:59 06:59 Intake Total 480 ml 130 ml Balance 480 ml 130 ml Intake Oral 480 ml 130 ml # Voids 2 Current Medications Medications (Trade) Dose Ordered Sig/Yeimi Route PRN Reason Start Time Stop Time Status Last Admin Dose Admin Acetaminophen (Tylenol) 650 mg Q4H PRN ORAL Temp >100.5 10/27/20 14:15 11/26/20 14:14 11/05/20 17:22 Amlodipine Besylate (Norvasc) 5 mg DAILY ORAL 11/08/20 09:00 12/08/20 08:59 11/18/20 09:17 Citalopram Hydrobromide (CeleXA) 20 mg DAILY ORAL 10/29/20 09:00 11/28/20 08:59 11/19/20 09:03 Dextrose (Dextrose 50%) 25 ml Q30M PRN IV Hypoglycemia 10/28/20 20:45 01/26/21 20:44 Dextrose (Dextrose 50%) 50 ml Q30M PRN IV Hypoglycemia 10/28/20 20:45 01/26/21 20:44 Docusate Sodium (Colace) 100 mg TWICE A DAY ORAL 10/28/20 18:00 11/27/20 17:59 11/19/20 09:02 Haloperidol Lactate (Haldol) 5 mg Q6H PRN IM Agitation 10/28/20 15:45 12/12/20 15:44 Hydralazine HCl (Apresoline) 25 mg Q4H PRN ORAL For BP over 160 systolic 11/06/20 16:15 02/04/21 16:14 Hydralazine HCl (Apresoline) 25 mg Q6HR ORAL 11/07/20 18:00 02/05/21 17:59 11/19/20 06:24 Insulin Aspart (NovoLOG) BEFORE MEALS AND HS SUBQ 10/28/20 21:00 01/26/21 20:59 11/19/20 12:22 Insulin Detemir (Levemir) 10 units Q24H SUBQ 10/29/20 20:00 01/27/21 19:59 11/18/20 20:00 Megestrol Acetate (Megace) 400 mg DAILY ORAL 10/28/20 09:00 01/26/21 08:59 11/19/20 09:02 Pantoprazole (Protonix) 40 mg EVERY 12 HOURS ORAL 10/28/20 21:00 11/27/20 20:59 11/19/20 09:02 Sevelamer Carbonate (Renvela) 800 mg THREE TIMES A DAY ORAL 10/28/20 13:00 01/26/21 12:59 11/19/20 12:18 Laboratory Tests 11/18/20 11:45: POC Whole Blood Glucose 123H 11/18/20 16:17: POC Whole Blood Glucose 144H 11/18/20 20:28: POC Whole Blood Glucose 168H 11/19/20 05:10: White Blood Count 6.5, Red Blood Count 3.02L, Hemoglobin 9.5L, Hematocrit 29.5L, Mean Corpuscular Volume 98, Mean Corpuscular Hemoglobin 31.4H, Mean Corpuscular Hemoglobin Concent 32.0, Red Cell Distribution Width 17.7H, Platelet Count 150#, Mean Platelet Volume 7.7, Neutrophils (%) (Auto) 57.5, Lymphocytes (%) (Auto) 24.4, Monocytes (%) (Auto) 14.4H, Eosinophils (%) (Auto) 2.4, Basophils (%) (Auto) 1.2, Sodium Level 137, Potassium Level 4.9, Chloride Level 99, Carbon Dioxide Level 32, Anion Gap 6, Blood Urea Nitrogen 65H, Creatinine 6.5H, Estimat Glomerular Filtration Rate 6.2, Glucose Level 103, Calcium Level 9.1 11/19/20 05:45: POC Whole Blood Glucose 99 Height (Feet): 5 Height (Inches): 1.00 Weight (Pounds): 92 General Appearance: no apparent distress, lethargic Cardiovascular: tachycardia Respiratory/Chest: decreased breath sounds Abdomen: distended Objective No change Chris Puckett MD Nov 19, 2020 11:24
--- NOTE | 2020-11-19 12:01 | NUR ---
BOOK JACKET COVER MACHINE OPERATOR NOTE PATIENT ACCEPTED TO RETURN TO [facility] PER [facility] SKILLED AMBULANCE TRANSPORTATION SET ON WILL CALL D/T INPATIENT HD TODAY. RN PETER TO ACTIVATE WILL CALL UPON COMPLETION OF HD.
--- NOTE | 2020-11-19 14:40 | Surgery Progress Note ---
Surgery Progress Note Subjective Additional Comments no acute events comfortable stable non /v Objective Last 24 Hour Vital Signs Date Time Temp Pulse Resp B/P (MAP) Pulse Ox O2 Delivery O2 Flow Rate FiO2 11/19/20 12:07 98.1 84 20 121/58 (79) 94 11/19/20 12:00 121/58 11/19/20 09:00 Nasal Cannula 1.0 11/19/20 09:00 87 155/71 11/19/20 08:00 98.1 87 20 155/71 (99) 98 11/19/20 06:24 153/68 11/19/20 04:00 98.1 84 20 153/68 (96) 100 11/19/20 01:07 139/61 11/19/20 00:00 97.9 81 20 139/61 (87) 99 11/18/20 21:00 Nasal Cannula 2.0 11/18/20 20:00 98.4 79 20 119/56 (77) 98 11/18/20 17:16 125/65 11/18/20 16:00 98.3 81 20 125/65 (85) 95 I&O Intake and Output 11/18/20 11/19/20 19:00 07:00 Intake Total 480 ml 130 ml Balance 480 ml 130 ml Intake Oral 480 ml 130 ml # Voids 2 Dressing: saturated Cardiovascular: RSR Respiratory: decreased breath sounds Abdomen: soft, non-tender, present bowel sounds Extremities: no tenderness, no cyanosis Laboratory Tests Test 11/18/20 16:17 11/18/20 20:28 11/19/20 05:10 11/19/20 05:45 POC Whole Blood Glucose 144 MG/DL (74-106) H 168 MG/DL (74-106) H 99 MG/DL (74-106) White Blood Count 6.5 K/UL (4.8-10.8) Red Blood Count 3.02 M/UL (4.20-5.40) L Hemoglobin 9.5 G/DL (12.0-16.0) L Hematocrit 29.5 % (37.0-47.0) L Mean Corpuscular Volume 98 FL (80-99) Mean Corpuscular Hemoglobin 31.4 PG (27.0-31.0) H Mean Corpuscular Hemoglobin Concent 32.0 G/DL (32.0-36.0) Red Cell Distribution Width 17.7 % (11.6-14.8) H Platelet Count 150 K/UL (150-450) # Mean Platelet Volume 7.7 FL (6.5-10.1) Neutrophils (%) (Auto) 57.5 % (45.0-75.0) Lymphocytes (%) (Auto) 24.4 % (20.0-45.0) Monocytes (%) (Auto) 14.4 % (1.0-10.0) H Eosinophils (%) (Auto) 2.4 % (0.0-3.0) Basophils (%) (Auto) 1.2 % (0.0-2.0) Sodium Level 137 MMOL/L (136-145) Potassium Level 4.9 MMOL/L (3.5-5.1) Chloride Level 99 MMOL/L (98-107) Carbon Dioxide Level 32 MMOL/L (21-32) Anion Gap 6 mmol/L (5-15) Blood Urea Nitrogen 65 mg/dL (7-18) H Creatinine 6.5 MG/DL (0.55-1.30) H Estimat Glomerular Filtration Rate 6.2 mL/min (>60) Glucose Level 103 MG/DL (74-106) Calcium Level 9.1 MG/DL (8.5-10.1) Test 11/19/20 11:27 POC Whole Blood Glucose 145 MG/DL (74-106) H Plan Problems: (1) Decubitus skin ulcer Assessment & Plan: Pt presented on admission with multiple Pressure Injuries. DTPI Sacrum(L)8cm x (W)8cm. Base of wound is purpuric with surrounding non- Blanchable erythema. Darker skin tone without erythema or induration periwound. Pt complained at site of DTPI when minimally palpated. Non-Blanchable erythema without induration R Ischium(L)7cm x (W)7.5cm. L Heel is boggy with non-Blanchable erythema. R heel is Boggy with non-blanchable erythema. Tx.Plan: Apply Moisture Barrier Paste to Sacrum. Cover with Optifoam drsg. Change every 3 days and prn.. Apply Moisture Barrier Paste to R and L Ischial tuberosities. Cover each Ischium with Optifoam drsgs. Change every 3 days and prn. Apply Cavilon Skin Barrier to R and L Heels and each Malleoli. Cover each site with Optifoam drsgs. Change every 7 days and prn. Cover Bony prominences as needed with Optifoam drsgs. Reposition at least every 2 hours or as tolerated. Off-load heels with Pillow. (2) Dyspnea (3) Respiratory distress (4) Pneumonia due to COVID-19 virus Assessment & Plan: ++ on tx id and pulm input appreciated limited movement will need to be cautions to ensure not worsening decub (5) Hypoglycemia (6) End stage renal disease on dialysis (7) Transient hypotension (8) Diastolic CHF, chronic (9) C. difficile colitis (10) Diarrhea Assessment & Plan: DAILY ESTIMATED NEEDS: Needs based on ESRD on HD 42kg 30-40 kcals/kg [id number] total kcals 1.25-1.8 g protein/kg 53-76 g total protein Fluid per MD, on HD NUTRITION DIAGNOSIS: Increased kcal and pro needs r/t renal dysfunction, wound healing as evidenced by pt w/ ESRD on HD, admitted w/ wounds, including sacral DTPI. CURRENT DIET:Renal diet PO DIET RECOMMENDATIONS: Renal + CCHO MED diet/ texture per BREAD DUMPER ADDITIONAL RECOMMENDATIONS: 1) Daily wts, calibrated bed scale 2) Rec BREAD DUMPER eval for appropriate texture 3) Add NEPRO QD (425kcal/19g prot), monitor need for additional 4) Monitor for hypoglycemia (BG 68 this am) -> DC or LOWER LEVEMIR @ [facility]- pt now w/ improved BG, hypoglycemic episodes 5) Wound healing: Nephrovite x 1, ZnSO4 220mg QD x 10 days Abdirahman BID as tolerated (11) ESRD (end stage renal disease) (12) Altered mental status (13) Pneumonia Kurt Flores Nov 19, 2020 14:40
--- NOTE | 2020-11-19 15:17 | General Progress Note ---
Subjective Allergies: Coded Allergies: No Known Allergies (Unverified , 09/23/20) Subjective awake eating better off isolation Objective Last 24 Hour Vital Signs Date Time Temp Pulse Resp B/P (MAP) Pulse Ox O2 Delivery O2 Flow Rate FiO2 11/19/20 12:07 98.1 84 20 121/58 (79) 94 11/19/20 12:00 121/58 11/19/20 09:00 Nasal Cannula 1.0 11/19/20 09:00 87 155/71 11/19/20 08:00 98.1 87 20 155/71 (99) 98 11/19/20 06:24 153/68 11/19/20 04:00 98.1 84 20 153/68 (96) 100 11/19/20 01:07 139/61 11/19/20 00:00 97.9 81 20 139/61 (87) 99 11/18/20 21:00 Nasal Cannula 2.0 11/18/20 20:00 98.4 79 20 119/56 (77) 98 11/18/20 17:16 125/65 11/18/20 16:00 98.3 81 20 125/65 (85) 95 Intake and Output 11/18/20 11/19/20 19:00 07:00 Intake Total 480 ml 130 ml Balance 480 ml 130 ml Intake Oral 480 ml 130 ml # Voids 2 Laboratory Tests 11/18/20 16:17: POC Whole Blood Glucose 144H 11/18/20 20:28: POC Whole Blood Glucose 168H 11/19/20 05:10: White Blood Count 6.5, Red Blood Count 3.02L, Hemoglobin 9.5L, Hematocrit 29.5L, Mean Corpuscular Volume 98, Mean Corpuscular Hemoglobin 31.4H, Mean Corpuscular Hemoglobin Concent 32.0, Red Cell Distribution Width 17.7H, Platelet Count 150#, Mean Platelet Volume 7.7, Neutrophils (%) (Auto) 57.5, Lymphocytes (%) (Auto) 24.4, Monocytes (%) (Auto) 14.4H, Eosinophils (%) (Auto) 2.4, Basophils (%) (Auto) 1.2, Sodium Level 137, Potassium Level 4.9, Chloride Level 99, Carbon Dioxide Level 32, Anion Gap 6, Blood Urea Nitrogen 65H, Creatinine 6.5H, Estimat Glomerular Filtration Rate 6.2, Glucose Level 103, Calcium Level 9.1 11/19/20 05:45: POC Whole Blood Glucose 99 11/19/20 11:27: POC Whole Blood Glucose 145H Height (Feet): 5 Height (Inches): 1.00 Weight (Pounds): 92 EENT: PERRL/EOMI Neck: supple Cardiovascular: regular rhythm Respiratory/Chest: lungs clear Abdomen: non tender, soft Extremities: non-tender Edema: mild edema Neurologic: oriented x 3 Skin: warm/dry Assessment/Plan Status: stable Assessment/Plan: 1 sob 2 covid pna cont isolation 3 chf diastolic acute 4 esrd on hd 5 failure of thrive 6 dementia 7 dm poory controlled due to steroids 8 hypotension 9 hyperkalemia rpt ok add levamier and high dose short insulin pt/ot eval dw pt pt is very weak id for evaluation for rpt covid for dc plan cardio and pulmonary consult off abx off isolation dc plan to snf Cesar Swanson MD Nov 19, 2020 15:17
--- NOTE | 2020-11-19 18:10 | NUR ---
nurse notes With order noted back to [facility] room 128 A, report given to ZENAIDA Delarosa accordingly, ambulance notified stated chart picker time id 19:15 , ZENAIDA MALIK
--- NOTE | 2020-11-19 19:02 | NUR ---
NURSE HAND-OFF: Important Events on Shift:[ discharge to [facility] pickler helper at 7:15pm] Patient Status: [stable] Diet: [renal diet] Pending Orders: [none] Pending Results/Labs:[none] Pending MD notification:[none] Latest Vital Signs: Temperature 97.9 , Pulse 78 , B/P 136 /78 , Respiratory Rate 20 , O2 SAT 96 , Nasal Cannula, O2 Flow Rate 1.0 . Vital Sign Comment: [stable] Latest Ness Fall Score: 50 Fall Risk: High Risk Safety Measures: Call light Within Reach, Bed Alarm Zone 1, Side Rails Side Rails x2, Bed position Low and Locked. Fall Precautions: Yellow Socks Yellow Gown Door Sign Patient Fall Education Report given to [ZENAIDA ramirez].
--- NOTE | 2020-11-19 19:30 | NUR ---
NURSE NOTES: Received patient in bed. A&OX2. NC 2L on, no s/s of respiratory distress noted. Waiting for discharge. Bed in lowest position. Call light within reach. Will continue to monitor.
[2020-11-19] MEDS: Levemir Flexpen SUBQ SCH (20:20)
--- NOTE | 2020-11-19 22:24 | NUR ---
NURSE NOTES: Patient discharged to [facility] with stable condition. VS stable. ID band removed. Patient has no belongings. Picked up by ambulance staff.
--- NOTE | 2020-11-20 16:22 | Discharge Summary ---
Discharge Summary Discharge Summary _ Date of admission: 10/27/2020 Date of discharge: 11/19/[address] Swanson History of Present Illness and Brief Hospital Course Ms. Steven Agudelo is a 75-year-old female with history of hypertension, CHF,ESRD on dialysis, who presented to the ER from [facility] for evaluation of poor oral intake, weakness, as well as dehydration. She also reported diarrhea along with shortness of breath. She was found to be COVID-19 positive on October 21 at [facility] and missed her dialysis. Of note, patient was admitted early September and her discharge diagnoses include pneumonia, C. difficile colitis, end-stage renal disease on hemodialysis, right hilar mass with bilateral pulmonary nodules, possible lung cancer, lower GI bleeding with anemia, CHF diastolic, hypertension, severe malnutrition, diabetes mellitus, dementia, and anxiety disorder. Her initial chest x-ray showed bilateral airspace consolidations, preferentially involving the right lung, consistent with multifocal infiltrate. Of note this finding was worse when compared to chest radiograph on September 25, 2020. For COVID-19 pneumonia she was put in isolation room with low flow oxygen. She was started on dexamethasone. Ceftriaxone and azithromycin were only given once in the ER. Her oxygen saturation was stable throughout her stay and she remained on low-flow oxygen. The supplemental oxygen was titrated down as tolerated. A repeat COVID-19 PCR test on 11/11 came back negative and she was off droplet isolation. Her inflammatory markers were elevated such as D-dimer and CRP. Venous duplex ultrasound was unremarkable for DVT and she was started on SCD for DVT prophylaxis measure. She initially presented with elevated BNP of greater than 35,000. Follow-up 2D echo showed left ventricular ejection fraction of 35-40%. She was also found to have moderate to severe mitral regurgitation on physical exam, which could have contributed to severity of heart failure. Patient's BNP was still elevated, and thus microfiltration was ordered during hemodialysis. Patient has a history of end-stage renal disease and missed her dialysis due to COVID-19 positivity. Patient was dialyzed on day 1 and continue to be dialyzed at regular intervals. Her BUN and creatinine were closely monitored as well has her electrolytes. Patient presented on admission with multiple pressure injuries including at the sacrum, ischium, and left/right heels. The decubitus skin ulcers were covered with Optifoam dressings which were changed at regular intervals. Other bony prominences were covered with Optifoam dressings as needed to prevent further skin ulcers. And patient was repositioned at least every 2 hours or as tolerated. Her heels were offloaded with pillow. Patient has history of diabetes mellitus and was started on insulin. Blood glucose was closely monitored but was poorly controlled initially due to concurrent use of steroids. Upon completion of steroids, her blood glucose improved significantly and was better controlled. Patient was alert and oriented to times, self, and place. However she was slightly agitated with flat affect. She also had a history of dementia. It was deemed appropriate to start her on citalopram, and Haldol as needed for ag itation. Patient had anemia of chronic disease, likely due to underlying chronic medical issues versus GI bleeding. Anemia work-up was done to rule out GI bleeding. Her platelet counts dropped likely secondary to COVID-19 pneumonia on day 15 and again on day 18. Hepatitis panel and HIV 1 and 2 antibodies were negative. The platelet count was normalized by the day of discharge. She was seen by physical therapy. Patient required maximal assistance to total dependence in mobilities. Patient was able to sit at the edge of bed with moderate support and tolerated activities in sitting with moderate support. On 11/19 she was medically stable for discharge back to SNF. Her discharge medications were reviewed and finalized. Consultants: Cardiology KENDRA Maza Surgery Dr. Flores Pulmonology Dr. Krause Infectious disease Dr. Stiles Nephrology Dr. Gale Psychiatry Dr. Tarango Discharge Condition Medically stable for discharge back to SNF on medical therapy Discharge Activity Needs assistance with ambulation and mobility Discharge Diet Renal diet Final diagnoses HFrEF Hypertension Mitral regurgitation Possible ASD with [id number] shunt Anemia of chronic disease Thrombocytopenia ESRD on dialysis Failure to thrive Dementia Diabetes mellitus Transient hypotension Agitation Dementia COVID-19 pneumonia Right eye conjunctivitis Hyperkalemia Decubitus skin ulcer Hypoglycemia History of C. difficile colitis I have been assigned to dictate discharge summary for this account. Zbigniew Serrano Nov 20, 2020 16:22
== END 2020-11-19 22:20 | DRG 177 ==
LOC: EDBD 08:16 → EMR 08:32 → 2E 08:48 → EDBEDREQSVC 10:09 → EDBEDREQ 10:09 → 4E 10-31 00:29
PROC: 5A1D70Z Performance of Urinary Filtration, Intermittent, Less than 6 Hours Per Day (ICD-10-PCS; principal; 2020-10-27)
DX: U07.1 COVID-19 (principal); J12.89 Other viral pneumonia; N18.6 End stage renal disease; I50.33 Acute on chronic diastolic (congestive) heart failure; J96.91 Respiratory failure, unspecified with hypoxia; Z68.1 Body mass index [BMI] 19.9 or less, adult; Q21.1 Atrial septal defect; I13.2 Hypertensive heart and chronic kidney disease with heart failure and with stage 5 chronic kidney disease, or end stage renal disease; R09.02 Hypoxemia; E11.22 Type 2 diabetes mellitus with diabetic chronic kidney disease; E87.5 Hyperkalemia; F03.90 Unspecified dementia, unspecified severity, without behavioral disturbance, psychotic disturbance, mood disturbance, and anxiety; H10.31 Unspecified acute conjunctivitis, right eye; I34.0 Nonrheumatic mitral (valve) insufficiency; L89.159 Pressure ulcer of sacral region, unspecified stage; F41.9 Anxiety disorder, unspecified; E11.649 Type 2 diabetes mellitus with hypoglycemia without coma; I95.89 Other hypotension; E86.0 Dehydration; R62.7 Adult failure to thrive; Z91.19 Patient's noncompliance with other medical treatment and regimen; D64.9 Anemia, unspecified; R19.7 Diarrhea, unspecified; R00.0 Tachycardia, unspecified; D69.6 Thrombocytopenia, unspecified
CPT/HCPCS: 36415; 71045; 76700; 80048; 80053; 80061; 82550; 82553; 82607; 82728; 82746; 82962; 82977; 83036; 83540; 83550; 83605; 83615; 83690; 83735; 83880; 84100; 84132; 84484; 84550; 85007; 85025; 85379; 85610; 85730; 86140; 86703; 86705; 86709; 86803; 87040; 87340; 93005; 93306; 93970; 96365; 96367; 96375; 99291; J1815; S5561